=== PATIENT | female | born 1990 | race Caucasian/White ===

== ENCOUNTER 2021-03-07 14:14 | Emergency (ER) | payer OTHER, SELFPAY ==
[2021-03-07 14:26] VITALS: BP 137/78; PULSE 85; RESP 16; TEMP 36.9; O2SAT 98; BMI 24.7
[2021-03-07 14:34] VITALS: BP 130/70; PULSE 120; O2SAT 98
--- NOTE | 2021-03-07 14:34 | ED.OVERDOSE ---
HPI - Overdose General Chief Complaint: Overdose Stated Complaint: OD, NARCAN GIVEN W/GOOD RESULTS Time Seen by Provider: 03/07/21 14:33 Source: patient and EMS Mode of arrival: EMS Limitations: no limitations History of Present Illness HPI Narrative: 30 y/o female with no medical history presents to the ER after an accidental overdose of heroin requiring IN Narcan by EMS. She reports never using heroin before and only snorted an amount less than the size of her pinky fingernail. Her and a friend were outside in a park and the next thing she remembers is being in an ambulance. She denies any injuries. She arrives AAO x3 and tearful. Asking to leave. complaint: accidental overdose Onset (ago): hour(s) Intent: unknown How Overdose Was Discovered: family/friend present at time and called 911 Context: Accidental Overdose: wanted to get high Treatments Prior to Arrival: narcan Related Data Allergies Allergy/AdvReac Type Severity Reaction Status Date / Time No Known Allergies Allergy Verified 03/07/21 14:26 Review of Systems Review of Systems: Constitutional: No Fever, No Chills Gastrointestinal: No Nausea, No Vomiting, No Diarrhea, No abdominal Pain Musculoskeletal: No joint pain, No Myalgias Skin: No Skin Lesions, No rash Neuro: No Weakness, No Numbness, No Dizziness, No Headache Psych: + Anxiety/Panic, + Depression, No SI Heme/Lymph: No Bruising, No Lymphadenopathy PMFSH Past Medical History Attestation statement: The following information was validated with the patient. Medical History No known health problems Social History Social History Advance Directives: No Advance Directives Information Provided: No Physical Exam Vital Signs: Vital Signs: Last Vital Signs Temp 98.5 F 03/07/21 14:26 Pulse 85 03/07/21 14:26 Resp 16 03/07/21 14:26 BP 137/78 03/07/21 14:26 Pulse Ox 98 03/07/21 14:26 Body Mass Index 24.7 Appearance: Alert. Oriented X3. No acute distress. Eyes: Pupils equal, round and reactive to light. ENT: Pharynx normal. Neck: Normal inspection. Neck supple. CVS: Normal heart rate and rhythm. Pulses normal. Respiratory: No respiratory distress. Breath sounds normal. Abdomen: Soft and nontender. +BS x4 Skin: Skin warm and dry. Normal skin color. Normal skin turgor. No rashes. Extremities: No lower extremity edema. Neuro: Oriented X 3. No motor deficit. No sensory deficit. Agitated Course Course Course Narrative: 30 y/o female presenting with unintentional heroin OD s/p Narcan with EMS. AAO on arrival, will monitor. Agreeable to stay for a little while. CARE team discussed support options and recovery but she declined services. Reevaluation(s) Reevaluation #1: Patient eloped after 1 hour of observation. Discharge Plan Discharge Clinical Impression: Drug overdose Qualifiers: Encounter type: initial encounter Injury intent: accidental or unintentional Qualified Code(s): T50.901A - Poisoning by unspecified drugs, medicaments and biological substances, accidental (unintentional), initial encounter Patient Disposition: Elopement Interventions: ED Discharge Assessment Last Done: 03/07/21 15:16 Discharge Date/Time: 03/07/21 15:19
--- NOTE | 2021-03-07 14:55 | MHC.RECOVSUP ---
Recovery Support note: Patient is a 30 year old Taiwanese speaking female who presented [place] [facility] due to an accidental heroin overdose. This racebook writer met with patient to discuss substance use and recovery supports. Patient adamantly denies heroin use, stating this is the first time she has ever tried heroin and that she was curious. Patient expressed regret and reports she will not be using heroin again. Patient reports drinking occasionally and denies other substance use. Patient reports she is not interested in recovery supports at this time as she does not feel she needs them. Patient reports she is interested in leaving as soon as possible. Discussed case with patient's ED Provider.
--- NOTE | 2021-03-07 15:02 | PC.NURSE ---
pt seen by justen (care team), pt aware of plan of care.
== END 2021-03-07 15:19 | disposition left against medical advice (07) ==
PROVIDERS: Emergency Provider Emergency Medicine Emergency Medical Services
DX: T40.1X1A Poisoning by heroin, accidental (unintentional), initial encounter (principal); Y92.9 Unspecified place or not applicable; F11.10 Opioid abuse, uncomplicated; Z71.51 Drug abuse counseling and surveillance of drug abuser
CPT/HCPCS: 99283

== ENCOUNTER 2021-06-23 12:43 | Emergency (ER) | payer OTHER, SELFPAY ==
[2021-06-23 12:52] VITALS: BP 144/91; PULSE 84; RESP 16; TEMP 36.7; O2SAT 96; BMI 24.7
--- NOTE | 2021-06-23 12:58 | ED.ALCOHOL ---
HPI - Alcohol General Chief Complaint: Anxiety Stated Complaint: ETOH,ANXIETY,COCAINE USE Time Seen by Provider: 06/23/21 12:58 Source: patient Mode of arrival: ambulatory Limitations: no limitations History of Present Illness HPI narrative: Patient feeling anxious and shakey after doing cocain, alcohol and robitussin. Really feeling anxious all over. patient would consider detox Last drink: Hours (ago) Chronic alcohol use: Yes Previous visits for alcohol intoxication: Yes Related Data Allergies Allergy/AdvReac Type Severity Reaction Status Date / Time No Known Allergies Allergy Verified 03/07/21 14:26 Review of Systems Constitutional: Constitutional: Reports no additional constitutional complaints Eyes: Eyes: Reports no additional eye complaints ENT: Denies dizziness Cardiovascular: Cardiovascular: Reports no additional cardiovascular complaints Respiratory: Respiratory: Reports as per HPI Gastrointestinal: Gastrointestinal: Reports no additional gastrointestinal complaints Genitourinary: Genitourinary: Reports no additional female genitourinary complaints Musculoskeletal: Musculoskeletal: Reports no additional musculoskeletal complaints Integumentary/Breasts: Skin/Breast: Denies rash Neurologic: Reports system reviewed and no additional complaints, except as documented, Denies dizziness and Denies Sensory deficit (Neuro) Psychiatric: Psychiatric: Denies anxiety [facility] Past Medical History Medical History No known health problems Social History Social History Advance Directives: No Advance Directives Information Provided: No Patient : No Physical Exam Vital Signs: Vital Signs: Last Vital Signs Temp 98.0 F 06/23/21 12:52 Pulse 84 06/23/21 12:52 Resp 16 06/23/21 12:52 BP 144/91 H 06/23/21 12:52 Pulse Ox 96 06/23/21 12:52 Body Mass Index 24.7 Const: General: healthy appearing Nutritional Appearance: average body habitus Orientation/consciousness: oriented to person and patient oriented x3 Limitations: no limitations HENMT: Head: Yes normal to inspection Ears: external ears normal General nose exam: Normal external nose present Mouth: Normal oral and palatal mucosa present and oropharynx normal Throat: Yes posterior oropharynx normal Eyes: General: appearance normal, both eyes and all related structures Neck: Other: supple Neck: Yes normal visual inspection Chest: Chest palpation & inspection: normal inspection of the chest Resp: Auscultation: clear to auscultation bilaterally Cardio: Jugular venous distension: no JVD Rate: regular rate Rhythm: regular rhythm Heart sounds: S1 normal heart sound present and S2 normal heart sound present GI: Inspection: Yes normal to inspection Palpation (GI): Soft to palpation, nontender and No hepatosplenomegaly present Auscultation: normal bowel sounds : General: Yes no CVA tenderness Back/Spine/Pelvis: Back: no CVA tenderness Skin: General skin exam: no rashes or lesions noted Neuro: General: oriented to person and patient oriented x3 Cranial nerves: Yes CN's II-XII intact bilaterally Motor exam (neuro): 5/5 motor strength present throughout Sensory Exam: No Sensory deficit (Neuro) Extrem: General: Yes normal to inspection Psych: Appearance: grossly normal Course Reevaluation(s) Reevaluation #1: resting comfortably will give her detox list Time: 14:47 Discharge Plan Discharge Clinical Impression: Acute anxiety, Polysubstance (including opioids) dependence with physiological dependence Patient Disposition: Home, Self-Care Additional Instructions: Please use detox list to find help with your substance dependence Referrals: Physician,None [Primary Care Provider] - 5 days
[2021-06-23] MEDS: LORazepam 1 MG TABLET PO (13:10)
--- NOTE | 2021-06-23 15:06 | MHC.RECOVSUP ---
Recovery Support note: Patient is a 30 year old Burmese speaking female who presented to [facility] due to anxiety. Patient reports drinking up to a gallon of vodka a day and that she is interested in detox. Patient reports she is willing to go anywhere for help. Patient reports she does not want to discharge without treatment, stating I won't make it back here if I go back out , meaning that she will not access help from the community. This proposal writer will assist patient in searching for a detox bed.
--- NOTE | 2021-06-23 15:07 | PC.NURSE ---
upon dc pt reports i dont want to go out and do something stupid justen at bedside to assist with detox bedsearch
[2021-06-23 15:25] VITALS: BP 127/64; PULSE 85; RESP 16; TEMP 36.7; O2SAT 97
--- NOTE | 2021-06-23 17:15 | PC.NURSE ---
WAITING TO HEAR FROM MULTIPLE DETOX PER MARGARET
--- NOTE | 2021-06-23 17:42 | MHC.RECOVSUP ---
Recovery Support note: Patient has been accepted to [facility] and has an admission scheduled for 830PM. Veterinary Anatomist or CARE Team will assist with arranging transportation.
--- NOTE | 2021-06-23 17:48 | PC.NURSE ---
PT ACCEPTED TO DETOX IN [place]
--- NOTE | 2021-06-23 18:20 | MHC.RECOVSUP ---
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
--- NOTE | 2021-06-23 18:29 | MHC.RECOVSUP ---
Recovery support <del>o</del> <del>Current</del> <del>location:</del> <del>o</del> <del>Identified</del> <del>substance</del> <del>use</del> <del>concern:</del> <del>-</del> <del>Overdose</del> <del>-</del> <del>Withdrawal</del> <del>-</del> <del>Seeking</del> <del>ATS</del> <del>(detox)</del> <del>-</del> <del>Support</del> <del>?</del> <del>Intervention:</del> <del>o</del> <del>ATS</del> <del>bed</del> <del>search</del> <del>started/completed/in</del> <del>process</del> <del>o</del> <del>MAT</del> <del>started</del> <del>or</del> <del>to</del> <del>be</del> <del>started</del> <del>o</del> <del>Community</del> <del>resources</del> <del>provided</del> <del>o</del> <del>Harm</del> <del>reduction</del> <del>discussion</del> <del>?</del> <del>Plan:</del> <del>o</del> <del>Referral</del> <del>to</del> <del>[facility]]</del> <del>o</del> <del>Bed</del> <del>search</del> <del>in</del> <del>progress</del> <del>to</del> <del>o</del> <del>Follow</del> <del>up</del> <del>tomorrow</del> <del>o</del> <del>Patient</del> <del>awaiting</del> <del>crisis</del> <del>evaluation</del> <del>o</del> <del>Patient</del> <del>to</del> <del>follow</del> <del>up</del> <del>with</del> <del>[facility]</del> <del>after</del> <del>discharge</del> ? Additional information: I was able to have a brief conversation with Bairon and he made it aware that has a bed for [facility] and that the [facility] was made aware of needing a ride to [place]. Charge nurse has the voucher.
[2021-06-23 19:37] VITALS: BP 126/58; PULSE 82; RESP 18; TEMP 36.8; O2SAT 96
== END 2021-06-23 20:30 | disposition home or self-care (01) ==
PROVIDERS: Emergency Provider Emergency Medicine
DX: F41.9 Anxiety disorder, unspecified (principal); F19.288 Other psychoactive substance dependence with other psychoactive substance-induced disorder
CPT/HCPCS: 99284

== ENCOUNTER 2021-08-19 12:18 | Inpatient (IN) | payer OTHER, SELFPAY ==
[2021-08-19] VITALS (13 sets, daily range): BP systolic 99–150; BP diastolic 47–86; PULSE 66–120; RESP 14–20; TEMP 36.2–37.1; O2SAT 95–100; BMI 23.0
--- NOTE | ~2021-08-19 | CT_ITS ---
EXAMINATION: CT ABDOMEN AND PELVIS WITH CONTRAST CLINICAL INFORMATION: Abdominal pain. Elevated WBC. COMPARISON: None. TECHNIQUE: Multidetector CT volumetric acquisition of the abdomen and pelvis was performed after the administration of 85 mL of intravenous Omnipaque 350. The data set was reformatted in the sagittal and coronal planes and reviewed on an independent workstation. This CT examination was performed using dose optimization techniques as appropriate, variously including the following: *Automated exposure control *Adjustment of mA and/or kV according to patient size (this includes techniques or standardized protocols for targeted exams where dose is matched to indication/reason for exam; i.e. extremities or head) *Use of iterative reconstruction technique DLP: 420.26 mGy-cm. FINDINGS: LOWER CHEST: Included lung bases unremarkable. LIVER, GALLBLADDER, BILIARY TREE: Liver normal size and diffusely lower in attenuation compared to the spleen, consistent with hepatic steatosis.. No focal cystic or solid mass or intra-or extrahepatic ductal dilatation. Hepatic and portal veins patent. Gallbladder partially distended and within normal limits. PANCREAS: Normal. No ductal dilatation, mass, or surrounding stranding. SPLEEN: Normal size and appearance. Splenic vein patent. ADRENAL GLANDS AND KIDNEYS: Adrenal glands normal. Kidneys bilaterally symmetric in size and function. No focal mass, hydronephrosis, nephrolithiasis or perinephric stranding. URETERS AND BLADDER: Ureters decompressed and within normal limits. Bladder partially distended and within normal limits. PELVIC ORGANS: Vaginal tampon seen in place. GASTROINTESTINAL TRACT: Abnormal. Small and large bowel loops decompressed. Appendix abnormal, measuring 1 x 0.7 cm in diameter and demonstrating mural thickening and enhancement. Trace amount of fluid is seen adjacent to the appendiceal tip with volume averaging with the sigmoid colon and the uterine fundus. No definite defined focal abscess collection is seen. No evidence of free air or bowel obstruction. Minimal reactive bowel wall edema in the adjacent sigmoid colon. Small bowel loops unremarkable.. ABDOMINAL WALL: There is a tiny fat-containing umbilical hernia. LYMPHOVASCULAR STRUCTURES: Abdominal aorta normal in caliber. No periaortic collections. No abdominal or pelvic adenopathy or free fluid collection. BONES: Bilateral L5 pars defects with grade 1 anterolisthesis of L5 on S1. CT/CT abdomen pelvis w con IMPRESSION: 1. Findings are consistent with acute uncomplicated appendicitis with abnormal dilated and fluid-filled appendix with wall thickening and small volume free fluid around the tip of the appendix. No defined abscess collection or evidence of bowel obstruction or perforation. 2. Hepatic steatosis. This critical result was discussed with Dr. Solange Naqvi 08/19/2021, 7:26 AM and it was ascertained that the content and urgency of this report was understood at the time of direct communication.
--- NOTE | 2021-08-19 04:03 | ED.ABDPAIN ---
HPI - Abdominal Pain General Chief Complaint: Nausea/Vomiting/Diarrhea <Emanuel Fairbanks MD - Last Filed: 08/19/21 05:48> Stated Complaint: N/V/D ABD PX [id number] <Emanuel Fairbanks MD - Last Filed: 08/19/21 05:48> Time Seen by Provider: 08/19/21 04:03 <Emanuel Fairbanks MD - Last Filed: 08/19/21 05:48> Source: patient <Emanuel Fairbanks MD - Last Filed: 08/19/21 05:48> Mode of arrival: EMS <Emanuel Fairbanks MD - Last Filed: 08/19/21 05:48> Limitations: no limitations <Emanuel Fairbanks MD - Last Filed: 08/19/21 05:48> History of Present Illness HPI narrative: nausea, vomiting and diarrhea for the past 4 hours with right lower quadrant pain radiating to the right flank, patient denies food poisoning. Denies fever. <Emanuel Fairbanks MD - Last Filed: 08/19/21 05:48> MD elicited complaint: abdominal pain and flank pain <Emanuel Fairbanks MD - Last Filed: 08/19/21 05:48> Pertinent past history: none <Emanuel Fairbanks MD - Last Filed: 08/19/21 05:48> Onset (ago): hour(s) <Emanuel Fairbanks MD - Last Filed: 08/19/21 05:48> Pain Consistency: constant <Emanuel Fairbanks MD - Last Filed: 08/19/21 05:48> Location: RLQ <Emanuel Fairbanks MD - Last Filed: 08/19/21 05:48> Severity: mild <Emanuel Fairbanks MD - Last Filed: 08/19/21 05:48> Quality: cramping <Emanuel Fairbanks MD - Last Filed: 08/19/21 05:48> Radiation: none <Emanuel Fairbanks MD - Last Filed: 08/19/21 05:48> Exacerbating factors: nothing <Emanuel Fairbanks MD - Last Filed: 08/19/21 05:48> Relieving factors: nothing <Emanuel Fairbanks MD - Last Filed: 08/19/21 05:48> Associated symptoms: nausea, vomiting and diarrhea <Emanuel Fairbanks MD - Last Filed: 08/19/21 05:48> Related Data Allergies/Adverse Reactions: Allergies Allergy/AdvReac Type Severity Reaction Status Date / Time No Known Allergies Allergy Verified 03/07/21 14:26 <Emanuel Fairbanks MD - Last Filed: 08/19/21 05:48> Review of Systems Constitutional: Reports no additional constitutional complaints <Emanuel Fairbanks MD - Last Filed: 08/19/21 05:48> Eyes: Reports no additional eye complaints <Emanuel Fairbanks MD - Last Filed: 08/19/21 05:48> Denies dizziness <Emanuel Fairbanks MD - Last Filed: 08/19/21 05:48> Cardiovascular: Reports no additional cardiovascular complaints <Emanuel Fairbanks MD - Last Filed: 08/19/21 05:48> Respiratory: Reports as per HPI <Emanuel Fairbanks MD - Last Filed: 08/19/21 05:48> Gastrointestinal: Reports no additional gastrointestinal complaints <Emanuel Fairbanks MD - Last Filed: 08/19/21 05:48> Genitourinary: Reports no additional female genitourinary complaints <Emanuel Fairbanks MD - Last Filed: 08/19/21 05:48> Musculoskeletal: Reports no additional musculoskeletal complaints <Emanuel Fairbanks MD - Last Filed: 08/19/21 05:48> Skin/Breast: Denies rash <Emanuel Fairbanks MD - Last Filed: 08/19/21 05:48> Reports system reviewed and no additional complaints, except as documented, Denies dizziness and Denies Sensory deficit (Neuro) <Emanuel Fairbanks MD - Last Filed: 08/19/21 05:48> Psychiatric: Denies anxiety <Emanuel Fairbanks MD - Last Filed: 08/19/21 05:48> Physical Exam Vital Signs: Vital Signs: Last Vital Signs Temp 98.8 F 08/19/21 04:38 Pulse 102 H 08/19/21 04:38 Resp 20 08/19/21 04:38 BP 138/85 08/19/21 04:38 Pulse Ox 95 08/19/21 04:38 Body Mass Index 23.0 <Emanuel Fairbanks MD - Last Filed: 08/19/21 05:48> Vital Signs: Last Vital Signs Temp 98.8 F 08/19/21 04:38 Pulse 102 H 08/19/21 04:38 Resp 20 08/19/21 04:38 BP 138/85 08/19/21 04:38 Pulse Ox 95 08/19/21 04:38 Body Mass Index 23.0 <Solange Naqvi MD - Last Filed: 08/19/21 08:41> Const: Other: anxious <Emanuel Fairbanks MD - Last Filed: 08/19/21 05:48> General: healthy appearing <Emanuel Fairbanks MD - Last Filed: 08/19/21 05:48> Nutritional Appearance: average body habitus <Emanuel Fairbanks MD - Last Filed: 08/19/21 05:48> Orientation/consciousness: oriented to person and patient oriented x3 <Emanuel Fairbanks MD - Last Filed: 08/19/21 05:48> Limitations: no limitations <Emanuel Fairbanks MD - Last Filed: 08/19/21 05:48> HENMT: Head: Yes normal to inspection <Emanuel Fairbanks MD - Last Filed: 08/19/21 05:48> Ears: external ears normal <Emanuel Fairbanks MD - Last Filed: 08/19/21 05:48> General nose exam: Normal external nose present <Emanuel Fairbanks MD - Last Filed: 08/19/21 05:48> Mouth: Normal oral and palatal mucosa present and oropharynx normal <Emanuel Fairbanks MD - Last Filed: 08/19/21 05:48> Throat: Yes posterior oropharynx normal <Emanuel Fairbanks MD - Last Filed: 08/19/21 05:48> Eyes: General: appearance normal, both eyes and all related structures <Emanuel Fairbanks MD - Last Filed: 08/19/21 05:48> Neck: Other: supple <Emanuel Fairbanks MD - Last Filed: 08/19/21 05:48> Neck: Yes normal visual inspection <Emanuel Fairbanks MD - Last Filed: 08/19/21 05:48> Chest: Chest palpation & inspection: normal inspection of the chest <Emanuel Fairbanks MD - Last Filed: 08/19/21 05:48> Resp: Auscultation: clear to auscultation bilaterally <Emanuel Fairbanks MD - Last Filed: 08/19/21 05:48> Cardio: Jugular venous distension: no JVD <Emanuel Fairbanks MD - Last Filed: 08/19/21 05:48> Rate: regular rate <Emanuel Fairbanks MD - Last Filed: 08/19/21 05:48> Rhythm: regular rhythm <Emanuel Fairbanks MD - Last Filed: 08/19/21 05:48> Heart sounds: S1 normal heart sound present and S2 normal heart sound present <Emanuel Fairbanks MD - Last Filed: 08/19/21 05:48> GI: Other: diffusely tender soft <Emanuel Fairbanks MD - Last Filed: 08/19/21 05:48> Inspection: Yes normal to inspection <Emanuel Fairbanks MD - Last Filed: 08/19/21 05:48> Auscultation: normal bowel sounds <Emanuel Fairbanks MD - Last Filed: 08/19/21 05:48> : General: Yes no CVA tenderness <Emanuel Fairbanks MD - Last Filed: 08/19/21 05:48> Back/Spine/Pelvis: Back: no CVA tenderness <Emanuel Fairbanks MD - Last Filed: 08/19/21 05:48> Skin: General skin exam: no rashes or lesions noted <Emanuel Fairbanks MD - Last Filed: 08/19/21 05:48> Neuro: General: oriented to person and patient oriented x3 <Emanuel Fairbanks MD - Last Filed: 08/19/21 05:48> Cranial nerves: Yes CN's II-XII intact bilaterally <Emanuel Fairbanks MD - Last Filed: 08/19/21 05:48> Motor exam (neuro): 5/5 motor strength present throughout <Emanuel Fairbanks MD - Last Filed: 08/19/21 05:48> Sensory Exam: No Sensory deficit (Neuro) <Emanuel Fairbanks MD - Last Filed: 08/19/21 05:48> Extrem: General: Yes normal to inspection <Emanuel Fairbanks MD - Last Filed: 08/19/21 05:48> Psych: Appearance: grossly normal <Emanuel Fairbanks MD - Last Filed: 08/19/21 05:48> Course Reevaluation(s) Reevaluation #1: WBC elevated, Lfts abnormal, bedside ultrasound negative for gallstones, will obtain CT scan <Emanuel Fairbanks MD - Last Filed: 08/19/21 05:48> Time: 05:48 <Emanuel Fairbanks MD - Last Filed: 08/19/21 05:48> MDM - Abdominal Pain MDM Narrative Medical decision making narrative: CT positive for appendicitis. Repeat abdominal exam positive right lower quadrant tenderness. Antibiotics started case discussed with Dr. Garcia from surgery. Patient to be admitted for appendectomy. <Solange Naqvi MD - Last Filed: 08/19/21 08:41> Lab Data Result diagrams: : 08/19/21 04:19 08/19/21 04:49 <Emanuel Fairbanks MD - Last Filed: 08/19/21 05:48> Labs: Lab Results 08/19/21 08/19/21 08/19/21 Range/Units 04:19 04:19 04:19 WBC 17.7 H (4.8-10.8) X10*3/uL RBC 4.49 (4.20-5.50) X10*6/uL Hgb 14.1 (12.0-16.0) g/dl Hct 40.5 (37-47) % MCV 90.2 (80-98) fL MCH 31.4 (27.0-33.0) pg MCHC 34.8 (31.0-35.0) g/dl RDW 13.7 (11.0-16.0) % Plt Count 221 (160-400) X10*3/uL MPV 10.0 (9.4-12.3) fL Immature Gran % (Auto) 0.2 (0.0-0.4) % Neut % (Auto) 86.9 H (45-73) % Lymph % (Auto) 9.1 L (20-40) % [place] % (Auto) 3.6 (2-11) % Eos % (Auto) 0.0 (0-4) % Baso % (Auto) 0.2 (0-2) % Lymph # (Auto) 1.6 (1.2-4.9) X10*3/uL [place] # (Auto) 0.6 (0.1-1.2) X10*3/uL Eos # (Auto) 0.0 (0.0-0.4) X10*3/uL Baso # (Auto) 0.0 (0.0-0.2) X10*3/uL Abs Immat Gran (auto) 0.04 H (0.00-0.03) X10*3/uL Absolute Neuts (auto) 15.3 H (2.0-8.3) X10*3/uL Absolute Nucleated RBC 0.000 (0.0-0.012) X10*3/uL Nucleated RBC % (auto) 0.0 (0.0-0.2) /100WBC Sodium (135-145) mmol/L Potassium (3.3-5.1) mmol/L Chloride (96-108) mmol/L Carbon Dioxide (22-29) mmol/L Anion Gap (12-20) BUN (9-16) mg/dL Creatinine (0.5-1.4) mg/dL Estim Creat Clear Calc Estimated GFR Random Glucose (60-115) mg/dL Calcium (8.4-10.2) mg/dL Total Bilirubin (0.0-1.0) mg/dL Direct Bilirubin (0.0-0.5) mg/dL AST (5-31) U/L ALT (0-31) U/L Alkaline Phosphatase (39-117) U/L Total Protein (6.5-8.0) g/dL Albumin (3.5-5.0) g/dL Lipase (8-78) U/L Urine Color YELLOW Urine Appearance HAZY Urine pH 6.5 (5.0-8.0) Ur Specific [place] >= 1.030 H (1.005-1.025) Urine Protein TRACE (NEG-TRACE) MG/DL Urine Glucose (UA) NEG (NEG) MG/DL Urine Ketones 15 (NEG) MG/DL Urine Blood TRACE (NEG) Urine Nitrite NEG (NEG) Ur Leukocyte Esterase NEG (NEG) Urine RBC 1-4 (0) /HPF Urine WBC 1-4 (0-4) /HPF Ur Squamous Epith Cells 2+ /LPF Urine Bacteria 2+ /LPF Hyaline Casts 1-4 /LPF Urine Mucus 2+ /LPF Urine Test NEGATIVE (NEGATIVE) 08/19/21 Range/Units 04:49 WBC (4.8-10.8) X10*3/uL RBC (4.20-5.50) X10*6/uL Hgb (12.0-16.0) g/dl Hct (37-47) % MCV (80-98) fL MCH (27.0-33.0) pg MCHC (31.0-35.0) g/dl RDW (11.0-16.0) % Plt Count (160-400) X10*3/uL MPV (9.4-12.3) fL Immature Gran % (Auto) (0.0-0.4) % Neut % (Auto) (45-73) % Lymph % (Auto) (20-40) % [place] % (Auto) (2-11) % Eos % (Auto) (0-4) % Baso % (Auto) (0-2) % Lymph # (Auto) (1.2-4.9) X10*3/uL [place] # (Auto) (0.1-1.2) X10*3/uL Eos # (Auto) (0.0-0.4) X10*3/uL Baso # (Auto) (0.0-0.2) X10*3/uL Abs Immat Gran (auto) (0.00-0.03) X10*3/uL Absolute Neuts (auto) (2.0-8.3) X10*3/uL Absolute Nucleated RBC (0.0-0.012) X10*3/uL Nucleated RBC % (auto) (0.0-0.2) /100WBC Sodium 138 (135-145) mmol/L Potassium 4.2 (3.3-5.1) mmol/L Chloride 104 (96-108) mmol/L Carbon Dioxide 20 L (22-29) mmol/L Anion Gap 18 (12-20) BUN 13 (9-16) mg/dL Creatinine 0.75 (0.5-1.4) mg/dL Estim Creat Clear Calc 89.8 Estimated GFR > 60 Random Glucose 106 (60-115) mg/dL Calcium 9.2 (8.4-10.2) mg/dL Total Bilirubin 1.6 H (0.0-1.0) mg/dL Direct Bilirubin 0.7 H (0.0-0.5) mg/dL AST 213 H (5-31) U/L ALT 303 H (0-31) U/L Alkaline Phosphatase 116 (39-117) U/L Total Protein 7.0 (6.5-8.0) g/dL Albumin 4.2 (3.5-5.0) g/dL Lipase < 4 L (8-78) U/L Urine Color Urine Appearance Urine pH (5.0-8.0) Ur Specific [place] (1.005-1.025) Urine Protein (NEG-TRACE) MG/DL Urine Glucose (UA) (NEG) MG/DL Urine Ketones (NEG) MG/DL Urine Blood (NEG) Urine Nitrite (NEG) Ur Leukocyte Esterase (NEG) Urine RBC (0) /HPF Urine WBC (0-4) /HPF Ur Squamous Epith Cells /LPF Urine Bacteria /LPF Hyaline Casts /LPF Urine Mucus /LPF Urine Test (NEGATIVE) <Emanuel Fairbanks MD - Last Filed: 08/19/21 05:48> Lab Results 08/19/21 08/19/21 08/19/21 Range/Units 04:19 04:19 04:19 WBC 17.7 H (4.8-10.8) X10*3/uL RBC 4.49 (4.20-5.50) X10*6/uL Hgb 14.1 (12.0-16.0) g/dl Hct 40.5 (37-47) % MCV 90.2 (80-98) fL MCH 31.4 (27.0-33.0) pg MCHC 34.8 (31.0-35.0) g/dl RDW 13.7 (11.0-16.0) % Plt Count 221 (160-400) X10*3/uL MPV 10.0 (9.4-12.3) fL Immature Gran % (Auto) 0.2 (0.0-0.4) % Neut % (Auto) 86.9 H (45-73) % Lymph % (Auto) 9.1 L (20-40) % [place] % (Auto) 3.6 (2-11) % Eos % (Auto) 0.0 (0-4) % Baso % (Auto) 0.2 (0-2) % Lymph # (Auto) 1.6 (1.2-4.9) X10*3/uL [place] # (Auto) 0.6 (0.1-1.2) X10*3/uL Eos # (Auto) 0.0 (0.0-0.4) X10*3/uL Baso # (Auto) 0.0 (0.0-0.2) X10*3/uL Abs Immat Gran (auto) 0.04 H (0.00-0.03) X10*3/uL Absolute Neuts (auto) 15.3 H (2.0-8.3) X10*3/uL Absolute Nucleated RBC 0.000 (0.0-0.012) X10*3/uL Nucleated RBC % (auto) 0.0 (0.0-0.2) /100WBC Sodium (135-145) mmol/L Potassium (3.3-5.1) mmol/L Chloride (96-108) mmol/L Carbon Dioxide (22-29) mmol/L Anion Gap (12-20) BUN (9-16) mg/dL Creatinine (0.5-1.4) mg/dL Estim Creat Clear Calc Estimated GFR Random Glucose (60-115) mg/dL Calcium (8.4-10.2) mg/dL Total Bilirubin (0.0-1.0) mg/dL Direct Bilirubin (0.0-0.5) mg/dL AST (5-31) U/L ALT (0-31) U/L Alkaline Phosphatase (39-117) U/L Total Protein (6.5-8.0) g/dL Albumin (3.5-5.0) g/dL Lipase (8-78) U/L Urine Color YELLOW Urine Appearance HAZY Urine pH 6.5 (5.0-8.0) Ur Specific [place] >= 1.030 H (1.005-1.025) Urine Protein TRACE (NEG-TRACE) MG/DL Urine Glucose (UA) NEG (NEG) MG/DL Urine Ketones 15 (NEG) MG/DL Urine Blood TRACE (NEG) Urine Nitrite NEG (NEG) Ur Leukocyte Esterase NEG (NEG) Urine RBC 1-4 (0) /HPF Urine WBC 1-4 (0-4) /HPF Ur Squamous Epith Cells 2+ /LPF Urine Bacteria 2+ /LPF Hyaline Casts 1-4 /LPF Urine Mucus 2+ /LPF Urine Test NEGATIVE (NEGATIVE) 08/19/21 Range/Units 04:49 WBC (4.8-10.8) X10*3/uL RBC (4.20-5.50) X10*6/uL Hgb (12.0-16.0) g/dl Hct (37-47) % MCV (80-98) fL MCH (27.0-33.0) pg MCHC (31.0-35.0) g/dl RDW (11.0-16.0) % Plt Count (160-400) X10*3/uL MPV (9.4-12.3) fL Immature Gran % (Auto) (0.0-0.4) % Neut % (Auto) (45-73) % Lymph % (Auto) (20-40) % [place] % (Auto) (2-11) % Eos % (Auto) (0-4) % Baso % (Auto) (0-2) % Lymph # (Auto) (1.2-4.9) X10*3/uL [place] # (Auto) (0.1-1.2) X10*3/uL Eos # (Auto) (0.0-0.4) X10*3/uL Baso # (Auto) (0.0-0.2) X10*3/uL Abs Immat Gran (auto) (0.00-0.03) X10*3/uL Absolute Neuts (auto) (2.0-8.3) X10*3/uL Absolute Nucleated RBC (0.0-0.012) X10*3/uL Nucleated RBC % (auto) (0.0-0.2) /100WBC Sodium 138 (135-145) mmol/L Potassium 4.2 (3.3-5.1) mmol/L Chloride 104 (96-108) mmol/L Carbon Dioxide 20 L (22-29) mmol/L Anion Gap 18 (12-20) BUN 13 (9-16) mg/dL Creatinine 0.75 (0.5-1.4) mg/dL Estim Creat Clear Calc 89.8 Estimated GFR > 60 Random Glucose 106 (60-115) mg/dL Calcium 9.2 (8.4-10.2) mg/dL Total Bilirubin 1.6 H (0.0-1.0) mg/dL Direct Bilirubin 0.7 H (0.0-0.5) mg/dL AST 213 H (5-31) U/L ALT 303 H (0-31) U/L Alkaline Phosphatase 116 (39-117) U/L Total Protein 7.0 (6.5-8.0) g/dL Albumin 4.2 (3.5-5.0) g/dL Lipase < 4 L (8-78) U/L Urine Color Urine Appearance Urine pH (5.0-8.0) Ur Specific [place] (1.005-1.025) Urine Protein (NEG-TRACE) MG/DL Urine Glucose (UA) (NEG) MG/DL Urine Ketones (NEG) MG/DL Urine Blood (NEG) Urine Nitrite (NEG) Ur Leukocyte Esterase (NEG) Urine RBC (0) /HPF Urine WBC (0-4) /HPF Ur Squamous Epith Cells /LPF Urine Bacteria /LPF Hyaline Casts /LPF Urine Mucus /LPF Urine Test (NEGATIVE) <Solange Naqvi MD - Last Filed: 08/19/21 08:41> Discharge Plan Discharge Clinical Impression: Appendicitis <Emanuel Fairbanks MD - Last Filed: 08/19/21 05:48> Patient Disposition: Admitted As Inpatient <Emanuel Fairbanks MD - Last Filed: 08/19/21 05:48> [facility] Past Medical History Medical History: Medical History No known health problems <Emanuel Fairbanks MD - Last Filed: 08/19/21 05:48> Social History Social History: Social History Alcohol intake: current Substance Use Type: Crack/Cocaine Advance Directives: No <Emanuel Fairbanks MD - Last Filed: 08/19/21 05:48>
[2021-08-19] MEDS: Pantoprazole Sodium 40 MG/10 ML VIAL IVPUSH (04:23)
[2021-08-19 04:24] LABS: Basophils Percent Auto 0.2 % (0-2); Hematocrit 40.5 % (37-47); Hemoglobin 14.1 g/dl (12.0-16.0); Imm Gran Abs Auto 0.04 X10*3/uL (0.00-0.03); Imm Gran Pct Auto 0.2 % (0.0-0.4); Lymphocytes Absolute Auto 1.6 X10*3/uL (1.2-4.9); Lymphocytes Percent Auto 9.1 % (20-40); MANUAL DIFF FLAG NO; Mean Corpuscular HGB Conc 34.8 g/dl (31.0-35.0); Mean Corpuscular Hemoglobin 31.4 pg (27.0-33.0); Mean Corpuscular Volume 90.2 fL (80-98); Monocytes Absolute Auto 0.6 X10*3/uL (0.1-1.2); Monocytes Percent Auto 3.6 % (2-11); Neutrophils Absolute Auto 15.3 X10*3/uL (2.0-8.3); Neutrophils Percent Auto 86.9 % (45-73); Platelet Count 221 X10*3/uL (160-400); Red Blood Count 4.49 X10*6/uL (4.20-5.50); Red Cell Distribution Width 13.7 % (11.0-16.0); White Blood Count 17.7 X10*3/uL (4.8-10.8)
[2021-08-19 04:27] LABS: Appearance Urine HAZY; Color Urine YELLOW; Glucose Urine UA NEG (NEG); Leukocyte Esterase Urine NEG (NEG); Nitrite Urine NEG (NEG); PH 6.5 (5.0-8.0); Specific Gravity - Urine >= 1.030 (1.005-1.025); UACC Culture Trigger NO; Urine Blood TRACE (NEG); Urine Ketones 15 MG/DL (NEG); Urine Protein TRACE MG/DL (NEG-TRACE)
[2021-08-19 04:29] LABS: UPreg QC Valid YES; Urine Pregnancy NEGATIVE (NEGATIVE)
[2021-08-19] MEDS: 0.9 % Sodium Chloride 1,000 ML 999 ML IVCONT ×2 (04:32→05:47)
[2021-08-19 04:34] LABS: Bacteria Urine 2+ /LPF; Mucus Urine 2+ /LPF; Squamous Epithelial Cell Urine 2+ /LPF
[2021-08-19 05:10] LABS: Alanine Aminotransferase 303 U/L (0-31); Albumin Level 4.2 g/dL (3.5-5.0); Alkaline Phosphatase 116 U/L (39-117); Anion Gap 18 (12-20); Aspartate Amino Transferase 213 U/L (5-31); Bilirubin Direct 0.7 mg/dL (0.0-0.5); Bilirubin Total 1.6 mg/dL (0.0-1.0); Blood Urea Nitrogen 13 mg/dL (9-16); Calcium 9.2 mg/dL (8.4-10.2); Carbon Dioxide 20 mmol/L (22-29); Chloride 104 mmol/L (96-108); Creatinine Clr Calc Pharmacy 89.8; Estimated Glomerular Filt Rate > 60; Glucose Random 106 mg/dL (60-115); Lipase < 4 U/L (8-78); Potassium 4.2 mmol/L (3.3-5.1); Sodium 138 mmol/L (135-145)
[2021-08-19] MEDS: Morphine Sulfate 4 MG/ML CARTRIDGE IVPUSH (05:54)
[2021-08-19] MEDS: iohexoL 350 MG/ML 100 ML INFUS..BTL 85 ML IV (06:38)
[2021-08-19] MEDS: cefTRIAXone sodium 1 GM in 0.9 % Sodium Chloride 50 ML IV (08:29)
--- NOTE | 2021-08-19 08:38 | PM.HPGS ---
History of Present Illness History of Present Illness Date of Service: 08/21/21 Chief complaint: Appendicitis Narrative: Bella Quiroz is a 31 year old female who came to the ED early this morning because of abdominal pain. She describes this diffuse but mostly on the lower abdomen. She states the pain had persisted throughout the night. She describes some nauseaand vomitting as well. She denies any similar episodes in the past. She had no fever or chills. She says she is healthy overall. Review of Systems Constitutional: Constitutional: Denies chills and Denies fever(s) Cardiovascular: Cardiovascular: Denies chest pain, Denies dyspnea and Denies dyspnea on exertion Respiratory: Respiratory: Denies cough, Denies dyspnea and Denies dyspnea on exertion Gastrointestinal: Gastrointestinal: Denies hematochezia, Denies change in bowel habits, Reports nausea and Reports vomiting Genitourinary: Genitourinary: Denies hematuria Musculoskeletal: Musculoskeletal: Denies back pain and Denies limited range of motion Neurologic: Denies focal weakness and Denies convulsions Psychiatric: Psychiatric: Denies depression and Denies mood swings PMFSH Past Medical History Medical History Cocaine use Smoker Social History Social History Household Members: Significant Other Housing: Apartment Do you presently have visiting nurse or other home services: Yes Alcohol intake: current Patient Tobacco Use Status: Current everyday Tobacco user Tobacco use type: Cigarette e-Cigarette/Vaping Use: Never Used Substance Use Type: Crack/Cocaine service: No Current occupational status: unemployed Meds Allergies Allergy/AdvReac Type Severity Reaction Status Date / Time No Known Allergies Allergy Verified 03/07/21 14:26 Physical Exam Vital Signs: Vital Signs: Last Vital Signs Temp 98.8 F 08/19/21 04:38 Pulse 102 H 08/19/21 04:38 Resp 20 08/19/21 04:38 BP 138/85 08/19/21 04:38 Pulse Ox 95 08/19/21 04:38 Body Mass Index 23.0 Const: General: comfortable and no acute distress Orientation/consciousness: patient oriented x3 Neck: Neck: Yes no lymphadenopathy Resp: Auscultation: clear to auscultation bilaterally Cardio: Rhythm: regular rhythm GI: Other: tender diffusely, mostly on the lower abdomen, no rebound Palpation (GI): Soft to palpation, Tenderness to palpation present (GI) and no guarding Neuro: General: patient oriented x3 Results Results Labs: Short CBC 08/19/21 Range/Units 04:19 WBC 17.7 H (4.8-10.8) X10*3/uL Hgb 14.1 (12.0-16.0) g/dl Hct 40.5 (37-47) % Plt Count 221 (160-400) X10*3/uL BMP 08/19/21 04:49 Sodium 138 Potassium 4.2 Chloride 104 Carbon Dioxide 20 L BUN 13 Creatinine 0.75 Calcium 9.2 Liver Function 08/19/21 Range/Units 04:49 Total Bilirubin 1.6 H (0.0-1.0) mg/dL Direct Bilirubin 0.7 H (0.0-0.5) mg/dL AST 213 H (5-31) U/L ALT 303 H (0-31) U/L Alkaline Phosphatase 116 (39-117) U/L Albumin 4.2 (3.5-5.0) g/dL Urine 08/19/21 08/19/21 Range/Units 04:19 04:19 Urine Color YELLOW Urine Appearance HAZY Urine pH 6.5 (5.0-8.0) Ur Specific [place] >= 1.030 H (1.005-1.025) Urine Protein TRACE (NEG-TRACE) MG/DL Urine Glucose (UA) NEG (NEG) MG/DL Urine Test NEGATIVE (NEGATIVE) Abdomen CT scan report/results: report reviewed and image reviewed CT scan - pelvis: report reviewed and image reviewed Assessment and Plan (1) Appendicitis: Status: Acute She has diffuse abdominal pain, but mostly on the lower abdomen. I have reviewed her CT scan and this shows thickening of the appendix, which is fluid filled, with periappendiceal fluid c/w acute appendicitis. I explained to her the technique of lap appendectomy and possible open appendectomy. I extensively reviewed the risks includingbut not limited to bleeding, infections, injury to bowel, liver and urinary tract, staple leak, as well as the benefits and alternatives. She understands the option of IV antibiotic treatment only and wants to proceed with appendectomy. We will therefore proceed with surgery today. Her significant other Pantera was updated of the plan ([phone]). Quality Stroke Does the patient have a stroke diagnosis?: No VTE Prior VTE?: No VTE Risk Level:: Medical - low VTE Device Contraindication: N/A - Device Ordered VTE Drug Contraindication: Treatment Not Indicated Procedures Date of Service Date of Service: 08/19/21
[2021-08-19] MEDS: HYDROmorphone HCl 0.5 MG/0.5 ML SYRINGE IVPUSH ×3 (08:51→17:07)
[2021-08-19] MEDS: ondansetron HCL 4 MG/2 ML VIAL IVPUSH (08:59)
[2021-08-19] MEDS: metroNIDAZOLE/NS 500 MG/100 ML PIGGYBACK 100 MG IV (09:00)
--- NOTE | 2021-08-19 09:49 | P.CONAN_ITS ---
HPI - Anesthesia Eval Consult details Narrative: Acute appendicitis PMFSH Active Problems Active Problems: All Active Problems (Updated 08/19/21 @ 08:41 by Solange Naqvi MD) Smoker (Acute) Appendicitis (Acute) Past Medical History Medical History No known health problems Smoker Narrative: H/o heroin overdose. Pt. denied haing been using heroin and claimed it was one-time affair. Pt admits using occasionaly cocaine and smoking half a pack of cigaretts. Family History Family history of problems with anesthesia: No Surgical History History of Problems with Anesthesia: No Social History Social History Alcohol intake: current Substance Use Type: Crack/Cocaine Advance Directives: No Meds Allergies Allergy/AdvReac Type Severity Reaction Status Date / Time No Known Allergies Allergy Verified 03/07/21 14:26 Active Medications: Current Medications Sodium Chloride (Ns) 1,000 mls @ 100 mls/hr IVCONT .Q10H MARIS[place] Morphine Sulfate (Morphine Sulfate 4 Mg/Ml Cartridge) 3 mg IVPUSH Q3H PRN; Protocol PRN Reason: Pain, Severe (Pain Scale 7-10) Sodium Chloride (0.9 % Sodium Chloride Flush 3 Ml Syringe) 3 ml IVFLUSH QSHIFT [facility] Exam Exam Date and Time: August 19, 2021 0949 Height,Weight and Vital Signs: Height 5 ft 3 in Weight 58.967 kg Last Vital Signs Temp 98.8 F 08/19/21 04:38 Pulse 102 H 08/19/21 04:38 Resp 20 08/19/21 04:38 BP 138/85 08/19/21 04:38 Pulse Ox 95 08/19/21 04:38 Pertinent Lab Results Pertinent Lab Results: Laboratory Tests 08/19/21 08/19/21 08/19/21 04:19 04:19 04:19 WBC 17.7 H RBC 4.49 Hgb 14.1 Hct 40.5 MCV 90.2 MCH 31.4 MCHC 34.8 RDW 13.7 Plt Count 221 MPV 10.0 Immature Gran % (Auto) 0.2 Neut % (Auto) 86.9 H Lymph % (Auto) 9.[address] [place] % (Auto) 3.6 Eos % (Auto) 0.0 Baso % (Auto) 0.2 Lymph # (Auto) 1.6 [place] # (Auto) 0.6 Eos # (Auto) 0.0 Baso # (Auto) 0.0 Abs Immat Gran (auto) 0.04 H Absolute Neuts (auto) 15.3 H Absolute Nucleated RBC 0.000 Nucleated RBC % (auto) 0.0 Sodium Potassium Chloride Carbon Dioxide Anion Gap BUN Creatinine Estim Creat Clear Calc Estimated GFR Random Glucose Calcium Total Bilirubin Direct Bilirubin AST ALT Alkaline Phosphatase Total Protein Albumin Lipase Urine Color YELLOW Urine Appearance HAZY Urine pH 6.5 Ur Specific [place] >= 1.030 H Urine Protein TRACE Urine Glucose (UA) NEG Urine Ketones 15 Urine Blood TRACE Urine Nitrite NEG Ur Leukocyte Esterase NEG Urine RBC 1-4 Urine WBC 1-4 Ur Squamous Epith Cells 2+ Urine Bacteria 2+ Hyaline Casts 1-4 Urine Mucus 2+ Urine Test NEGATIVE 08/19/21 04:49 WBC RBC Hgb Hct MCV MCH MCHC RDW Plt Count MPV Immature Gran % (Auto) Neut % (Auto) Lymph % (Auto) [place] % (Auto) Eos % (Auto) Baso % (Auto) Lymph # (Auto) [place] # (Auto) Eos # (Auto) Baso # (Auto) Abs Immat Gran (auto) Absolute Neuts (auto) Absolute Nucleated RBC Nucleated RBC % (auto) Sodium 138 Potassium 4.2 Chloride 104 Carbon Dioxide 20 L Anion Gap 18 BUN 13 Creatinine 0.75 Estim Creat Clear Calc 89.8 Estimated GFR > 60 Random Glucose 106 Calcium 9.2 Total Bilirubin 1.6 H Direct Bilirubin 0.7 H AST 213 H ALT 303 H Alkaline Phosphatase 116 Total Protein 7.0 Albumin 4.2 Lipase < 4 L Urine Color Urine Appearance Urine pH Ur Specific [place] Urine Protein Urine Glucose (UA) Urine Ketones Urine Blood Urine Nitrite Ur Leukocyte Esterase Urine RBC Urine WBC Ur Squamous Epith Cells Urine Bacteria Hyaline Casts Urine Mucus Urine Test Airway Mallampati Class: I TM Dist: >3cm Loose/Missing/Broken Teeth: No Heart: RRR Lungs: CTA Assessment and Plan Assessment Anesthesia Assessment: Anesthesia Plan Discussed, Smoking Cess. Discussed and Chart Reviewed Final Anesthetic Review Family History of Problems with Anesthesia: No History of Problems with Anesthesia: No NPO: Yes ASA Class: II Final Preanesthetic Review: No Changes in Pt Med Stat, Meds/Allgs Chart Reviewed, Consent Obtained/Reviewed and Anes Risks/Benef Reviewed Patient Risk: Low Procedure Risk: Intermediate Anesthetic Plan Anesthetic Plan: GA Disposition: Standard PACU
--- NOTE | 2021-08-19 11:39 | W.PM.OPN ---
Operative Note Operative Note Date of Service: 08/19/21 Narrative: Preop diagnosis: Acute appendicitis Postop diagnosis: Acute appendicitis, suppurative Procedure: Laparoscopic appendectomy Surgeon: Terence Garcia MD The patient is a 31 year female, who came to the emergency room early this morning because of the abdominal pain mostly lower abdomen but diffuse. A CAT scan showed findings consistent with acute appendicitis. I explained to her the technique of laparoscopic appendectomy and possible open appendectomy. I reviewed the risks, benefits, and alternatives and she had given consent She was brought to the operating room and placed supine on the table under general anesthesia via endotracheal tube. A Chun catheter was inserted. The abdomen wasprepped and draped in the usual sterile fashion. A surgical time-out was done. The patient received Cefotan 2 g IV preoperatively for prophylaxis. I made a short incision on the infraumbilical margin using a blade 15. And this was carried down through the full-thickness of the skin subcutaneous fat down to the fascia. The fascia was incised. The peritoneum was entered and through this incision on a Gloria port was introduced. Pneumoperitoneum was introduced to a pressure of 15 mm hg. From here on the rest of the procedure was done under vision with a 10 mm laparoscope. With laparoscopic visualization, I proceeded to insert a 5/12 mm port and left lower quadrant through a small incision. A 5 mm port was introduced through a small stab incision on the suprapubic margin. The patient was placed in a head-down and [id number] position. Graspers were placed through the working ports. I reflected the small bowel loops away from right lower until I was able to visualize the cecum. By following the cecum I was able to see the appendix which was markedly indurated, erythematous with some induration. Most of this story changes were on the distal 2/3 of the appendix. I was able to apply a grasper at the mid part of the appendix to put this on stretch. By doing so was able to visualize the base. The base was minimally inflamed. I proceeded to do blunt dissection of the base to create a mesenteric window. I then used an Endo-ZULY 30 mm stapler and positioned this across the base of the appendix. This was fired and the appendix was transected. I then serially divided the mesoappendix using the LigaSure until the entire appendix was completely . The appendix was retrieved through an endobag through the left lower quadrant incision I inserted the ports and deflated. I examined the area of dissection. There was no significant bleeding. I irrigated this area and suctioned out the irrigant fluid. I observed all 4 quadrants and there was no other pathology. There was evidence of any bowel injury The staple line appeared intact. Once hemostasis was ensured I proceeded to then position the omentum to cover the right lower quadrant. I desufflated the port sites and removed all ports under vision with the laparoscope. The umbilical port was removed last. The fascia of the umbilical incision was closed with [id number] Dexon 0 stitch. Skin closure was achieved on all incisions using Dexon 4-0 subcuticular sutures. Steri-Strips and dressings were applied. All incisions were infiltrated with Marcaine 0.5% for postop analgesia. The procedure was then completed The patient tolerated procedure well with no complications noted. Initial and final counts of sponges and instruments were correct. Estimatedblood loss about 20 cc. The patient was then extubated without difficulty and transferred to the recovery room with stable vital signs.
[2021-08-19] MEDS: Haloperidol Lactate 5 MG/ML VIAL IVPUSH (11:42)
--- NOTE | 2021-08-19 11:46 | PM.OP ---
Brief Operative Note Date of Service: 08/19/21 Pre-op diagnosis: Acute appendicitis Post-op diagnosis: same Procedure: Laparoscopic appendectomy Surgeon: Terence Garcia MD Anesthesia: GETA Was an Feather Trimmer used for this Procedure?: No Estimated blood loss (mL): 20 Pathology: other (Appendix) Condition: stable Disposition: PACU
[2021-08-19] MEDS: Acetaminophen 325 MG TABLET 650 MG PO (12:01)
[2021-08-19] MEDS: oxyCODONE HCl Immed Release 5 MG TABLET PO (12:01)
[2021-08-19 12:29] LABS: COVID-19 Test Negative (Negative); IDNOW Serial# 55D5AD1C
--- NOTE | 2021-08-19 13:44 | PM.EVENT ---
Event Note Date of Service: 08/19/21 Event Note: seen postop good pain control after lap appy looks well stable VS abd soft significant other updated likely home tomorrow morning
[2021-08-19] MEDS: 0.9 % Sodium Chloride 1,000 ML 60 ML IVCONT ×2 (17:10→20:53)
[2021-08-19] MEDS: Morphine Sulfate 4 MG/ML CARTRIDGE 3 MG IVPUSH (20:53)
[2021-08-20] MEDS: Morphine Sulfate 4 MG/ML CARTRIDGE 3 MG IVPUSH (01:44)
[2021-08-20 03:57] VITALS: BP 96/56; PULSE 77; RESP 16; TEMP 37.1; O2SAT 100
[2021-08-20] MEDS: 0.9 % Sodium Chloride 1,000 ML 60 ML IVCONT ×2 (05:39→08:17)
[2021-08-20 08:00] VITALS: BP 120/64; PULSE 74; RESP 17; TEMP 36.1; O2SAT 99
[2021-08-20] MEDS: oxyCODONE HCl Immed Release 5 MG TABLET 10 MG PO (08:17)
--- NOTE | 2021-08-20 08:20 | PM.PNGS ---
Subjective Subjective Date of Service: 08/20/21 <Imelda Merlos PA-C - Last Filed: 08/20/21 08:23> 08/21/21 <Terence Garcia MD - Last Filed: 08/21/21 16:00> Interval history: Feels much better. Does have soreness at incision sites. Had some ice cream yesterday but was having gas pains. OOB only to bathroom. <Imelda Merlos PA-C - Last Filed: 08/20/21 08:23> Physical Exam Vital Signs: Vital Signs: Last Vital Signs Temp 97.0 F 08/20/21 08:00 Pulse 74 08/20/21 08:00 Resp 17 08/20/21 08:00 BP 120/64 08/20/21 08:00 Pulse Ox 99 08/20/21 08:00 Body Mass Index 23.0 <Imelda Merlos PA-C - Last Filed: 08/20/21 08:23> Const: General: healthy appearing, comfortable, no acute distress and alert <Imelda Merlos PA-C - Last Filed: 08/20/21 08:23> Orientation/consciousness: patient oriented x3 <Imelda Merlos PA-C - Last Filed: 08/20/21 08:23> Resp: Effort & Inspection: normal respiratory effort <Imelda Merlos PA-C - Last Filed: 08/20/21 08:23> GI: Inspection: No distended and Yes incision (dressings c/d/i) <Imelda Merlos PA-C - Last Filed: 08/20/21 08:23> Palpation (GI): Soft to palpation and Tenderness to palpation present (GI) (mild, incisional) <Imelda Merlos PA-C - Last Filed: 08/20/21 08:23> Percussion: Yes normal to percussion <CAROLE Talavera Last Filed: 08/20/21 08:23> Skin: General skin exam: no rashes or lesions noted <CAROLE Talavera Last Filed: 08/20/21 08:23> Neuro: General: patient oriented x3 <CAROLE Talavera Last Filed: 08/20/21 08:23> Extrem: General: Yes no clubbing, cyanosis or edema <Imelda Merlos PA-C - Last Filed: 08/20/21 08:23> Procedures Date of Service Date of Service: 08/20/21 <Imelda Merlos PA-C - Last Filed: 08/20/21 08:23> Progress Note: A&P Assessment and plan (1) Appendicitis: Status: Acute <Imelda Merlos PA-C - Last Filed: 08/20/21 08:23> (2) S/P laparoscopic appendectomy: Status: Acute <Imelda Merlos PA-C - Last Filed: 08/20/21 08:23> Assessment and Plan: doing well postop good pain control ok to dc home today seen and examined agree with ANNELIESE Mrelos <Terence Garcia MD - Last Filed: 08/21/21 16:00> Assessment and Plan: 31 year old female admitted with acute appendicitis now POD #1 s/p lap appy. She is doing well post op, pain controlled. Will reassess later this morning- if tolerating solid diet, stable for d/c to home today. Patient comfortable with plan. F/u in office in 2 weeks. <Imelda Merlos PA-C - Last Filed: 08/20/21 08:23> Fall Risk Details Current Medications: Current Medications Albuterol Sulfate (Albuterol Sulfate (0.083%) 2.5 Mg/3 Ml Vial.Neb) 2.5 mg INHALE ONCE PRN PRN Reason: Wheezing Fentanyl (Fentanyl Citrate/Pf 100 Mcg/2 Ml Vial) 50 mcg IVPUSH Q5M PRN; Protocol PRN Reason: Pain, Severe (Pain Scale 7-10) Hydromorphone HCl (Hydromorphone Hcl 0.5 Mg/0.5 Ml Syringe) 0.5 mg IVPUSH Q5M PRN; Protocol PRN Reason: Pain, Severe (Pain Scale 7-10) Last Admin: 08/19/21 17:07 Dose: 0.5 mg Documented by: Sodium Chloride (Ns) 1,000 mls @ 100 mls/hr IVCONT .Q10H MARISABEL Last Admin: 08/20/21 08:17 Dose: 60 mls/hr Documented by: Promethazine HCl 12.5 mg/ (Sodium Chloride) 50.5 mls @ 202 mls/hr IV ONCE PRN PRN Reason: Nausea and Vomiting Ibuprofen (Ibuprofen 600 Mg Tablet) 600 mg PO Q6H PRN PRN Reason: Pain, Moderate (Pain Scale 4-6 Morphine Sulfate (Morphine Sulfate 4 Mg/Ml Cartridge) 3 mg IVPUSH Q3H PRN; Protocol PRN Reason: Pain, Severe (Pain Scale 7-10) Last Admin: 08/20/21 01:44 Dose: 3 mg Documented by: Ondansetron HCl (Ondansetron Hcl 4 Mg/2 Ml Vial) 4 mg IVPUSH Q8H PRN PRN Reason: nausea Oxycodone HCl (Oxycodone Hcl Immed Release 5 Mg Tablet) 10 mg PO Q6H PRN PRN Reason: Pain, Moderate (Pain Scale 4-6 Last Admin: 08/20/21 08:17 Dose: 10 mg Documented by: Sodium Chloride (0.9 % Sodium Chloride Flush 3 Ml Syringe) [facility] Last Admin: 08/19/21 22:43 Dose: Not Given Documented by: <Imelda Merlos PA-C - Last Filed: 08/20/21 08:23> Time Spent With Patient Time: Total time spent is greater than 50% in coordination of care (as documented) at patient's floor/unit and/or counseling patient: <Imelda Merlos PA-C - Last Filed: 08/20/21 08:23> Time with patient: 15 - 24 minutes <Imelda Merlos PA-C - Last Filed: 08/20/21 08:23> Quality Stroke Does the patient have a stroke diagnosis?: No <Imelda Merlos PA-C - Last Filed: 08/20/21 08:23> VTE Prior VTE?: No <Imelda Merlos PA-C - Last Filed: 08/20/21 08:23> VTE Risk Level:: Medical - low <CAROLE Talavera Last Filed: 08/20/21 08:23> VTE Device Contraindication: N/A - Device Ordered <Imelda Merlos PA-C - Last Filed: 08/20/21 08:23> VTE Drug Contraindication: Treatment Not Indicated <Imelda Merlos PA-C - Last Filed: 08/20/21 08:23>
--- NOTE | 2021-08-20 09:33 | PM.DS ---
DS: Providers Provider Date of Service: 08/20/21 Date of admission: 08/19/21 12:18 Primary care physician: Lorenzo Physician Attending physician on admission: Terence Garcia DS: Diagnosis Discharge Diagnosis (1) Appendicitis: Status: Acute (2) S/P laparoscopic appendectomy: Status: Acute DS: Summary Hospital Course Hospital Course: BRIEF HPI: Bella Quiroz is a 31 year old female who came to the ED early this morning because of abdominal pain. She describes this diffuse but mostly on the lower abdomen. She states the pain had persisted throughout the night. She describes some nauseaand vomitting as well. She denies any similar episodes in the past. She had no fever or chills. She says she is healthy overall. She had a leukocytosis of 17.[address] scan which showed thickening of the appendix, which is fluid filled, with periappendiceal fluid c/w acute appendicitis. HOSPITAL COURSE: The patient was admitted to the surgical service under Dr. Garcia for further treatment of the acute appendicitis. Treatment options were discussed and she elected to proceed with appendectomy. She was added onto the OR schedule for that day. On 08/19/21, a laparoscopic appendectomy was performed by Dr. Garcia without complication. The patient tolerated the procedure well and was admitted back to the medical/surgical floor for observation. She had an uncomplicated recovery course. On POD #1, she was doing well. Her pain was well controlled and she was OOB without difficulty and tolerating a solid diet. Her abdomen was benign with dressings c/d/i and appropriate post op tenderness. She felt ready for discharge to home. She is to follow up with Dr. Garcia in office in 2 weeks. Status at Discharge Functional status at discharge: independent ambulation Overall status at discharge: patient is progressing back to baseline Time Spent with Patient Time attestation: Total time spent providing and/or coordinating discharge services: Discharge coordination time: Less than 30 minutes Quality: Stroke Does the patient have a stroke diagnosis?: No Physical Exam Vital Signs: Vital Signs: Last Vital Signs Temp 97.0 F 08/20/21 08:00 Pulse 74 08/20/21 08:00 Resp 17 08/20/21 08:00 BP 120/64 08/20/21 08:00 Pulse Ox 99 08/20/21 08:00 Body Mass Index 23.0 Const: General: healthy appearing, comfortable and no acute distress Orientation/consciousness: patient oriented x3 Resp: Effort & Inspection: normal respiratory effort GI: Inspection: No distended and Yes incision (dressings c/d/i) Palpation (GI): Soft to palpation, Tenderness to palpation present (GI) (mild, incisional), no guarding and not rigid Percussion: Yes normal to percussion Skin: General skin exam: no rashes or lesions noted Neuro: General: patient oriented x3 Extrem: General: Yes no clubbing, cyanosis or edema DS: Data Data Completed and Pending Pending studies at discharge: Pending at discharge 08/19/21 11:41 Surgical [PTH] Routine Labs on day of discharge: Laboratory Results - last 24 hr 08/19/21 12:07 COVID-19 ([facility]) Negative COVID-19 Clin Com See Note Discharge Plan Discharge Patient Disposition: Home, Self-Care Discharge Diagnosis: Acute appendicitis Referrals: Terence Garcia MD [Physician] - 1 Week Physician,None [Primary Care Provider] - 1 Week Discharge Medications: New oxycodone 5 mg tablet 5 mg PO Q4H PRN (Reason: pain (scale score 7-10)) Qty: 24 RF: 0 docusate sodium [Colace] 100 mg capsule 100 mg PO BID PRN (Reason: constipation) Qty: 30 RF: 0 acetaminophen [Tylenol Extra Strength] 500 mg tablet 1,000 mg PO Q6H PRN (Reason: pain) Qty: 60 RF: 0 Discharge Orders: Discharge Order (Routine); Ordered 08/20/21 Ordered By: Imelda Chris Diet: regular diet Activity on Discharge: No heavy lifting Stand Alone Forms: Patient Portal Discharge page Activity Restrictions/Additional Instructions: If the incision area is tender, you may apply an ice pack for short intervals (No more than 20 minutes on, followed by at least 20 minutes off). Do not apply heat. Do not use creams, lotions, or topical antibiotics unless instructed to do so by your surgeon. These can cause infection or allergic reaction. OK to shower Okay to change dressings with Band-Aids daily No lifting more than 20 lb No strenuous activities Call the office for follow-up in 2 weeks - with Dr. Garcia Call Your Doctor If: -Your temperature exceeds 101.5? F -You experience excessive pain or swelling -You have an unexpected reaction to medication -You have excessive bleeding -You experience continued vomiting/nausea -Your incision begins to separate -Your incision shows signs of infection such as increased redness, swelling, excessive pain, drainage (light blood or clear fluid is normal) or heat Care Plan Goals: Smoking cessation Control of drug abuse Health Concerns: Smoking Drug abuse Plan of Treatment: Oral pain meds Assessment: Doing well postop
--- NOTE | 2021-08-20 10:18 | MHC.CM.PN ---
EMR REVIEWED, PT ADMITTED W/APPENDICITIS AND S/P LAP APPANDECTOMY, CM MET W/PT WHO IS INDEPENDENT, NO DME AND HOME SERVICES, CM DISCUSSED SA TX W/PT AND PT IS DECLINING CARE TEAM/RECOVERY SUPPORT AND REPORTS SHE ONLY USES RECREATIONALLY, PT HAS NO PCP AND WAS OFFERED & GIVEN PAMPHLET W/[facility] PROVIDERS AND DIRECTIONS ON HOW TO SIGN UP FOR A DOCTOR, PT COMPLETED A HCP W/CM AND NAMED HER S.O. GORAN ARIASRT [phone]. D/C PLAN: HOME SELF-CARE W/OUTPT FOLLOW-UP W/DR BERMAN, PT PROVIDED W/C SHUTTLE VOUCHER AND IS BEING TRANSPORTED AT 10:30AM
--- NOTE | 2021-08-20 14:01 | HO.POSTANES ---
Post Anesthesia Evaluation Post Anesthesia Evaluation Vital Signs: Vital Signs Temp Pulse Resp BP Pulse Ox 08/20/21 08:00 97.0 F 74 17 120/64 99 08/20/21 03:57 98.8 F 77 16 96/56 L 100 Anesthesia: General Endotracheal-GETA Mental Status: Awake Pain Control: Satisfactory Nausea/Vomiting: None Hydration: Adequate Anesthesia-Related Issues: No Anes. Related Issues
== END 2021-08-20 10:32 | disposition home or self-care (01) | DRG 234 ==
LOC: HO.S3 12:19
PROVIDERS: Emergency Medicine; Emergency Medicine Emergency Medical Services; Admitting Provider Surgery; Visit Provider Surgery
PROC: 0DTJ4ZZ Resection of Appendix, Percutaneous Endoscopic Approach (ICD-10-PCS; CPT 44970; principal; 2021-08-19 09:30)
DX: K35.80 Unspecified acute appendicitis (principal); F17.210 Nicotine dependence, cigarettes, uncomplicated; Z20.822 Contact with and (suspected) exposure to COVID-19; Z71.6 Tobacco abuse counseling; Z79.899 Other long term (current) drug therapy
CPT/HCPCS: 36415; 74177; 80048; 80076; 81001; 81025; 83690; 85025; 87635; 88304; J0696; J1100; J1170; J2250; J2270; J2405; J2550; J3010; Q9967

== ENCOUNTER 2021-08-24 05:35 | Emergency (ER) | payer OTHER, SELFPAY ==
--- NOTE | ~2021-08-24 | US_ITS ---
EXAMINATION: US ABDOMEN LIMITED CLINICAL INFORMATION: Elevated liver function tests. COMPARISON: CT of the abdomen and pelvis 08/19/2021 TECHNIQUE: Real-time imaging of the right upper quadrant abdominal viscera. FINDINGS: PANCREAS: Normal. LIVER: Liver echotexture is increased.. The liver is normal in size. The liver contour is normal. No focal hepatic lesion. There is no intrahepatic biliary duct dilatation seen. GALLBLADDER: Normal. The gallbladder is physiologically distended without evidence of stones, sludge, polyps, wall thickening or pericholecystic fluid. COMMON BILE DUCT: Normal in caliber measuring 0.6 cm in diameter. RIGHT KIDNEY: Normal. No hydronephrosis. No renal calculi or focal parenchymal lesions. The kidney measures 12 cm in maximum dimension. FREE FLUID: None. US/US abdomen limited IMPRESSION: Echogenic liver probably representing fatty infiltration. Otherwise unremarkable exam.
[2021-08-24 05:47] VITALS: BP 118/85; BP 131/85; PULSE 104; PULSE 108; RESP 16; O2SAT 98; BMI 23.9
--- NOTE | 2021-08-24 05:54 | PC.NURSE ---
pt requesting water, being a rude to staff and ems. pt overdosed and by stander gave him 2 doses of Narcan.
--- NOTE | 2021-08-24 06:34 | ED.OVERDOSE ---
HPI - Overdose General Chief Complaint: Overdose Stated Complaint: od unknown narcan amount given Time Seen by Provider: 08/24/21 06:34 Source: patient and EMS Mode of arrival: EMS Limitations: no limitations History of Present Illness HPI Narrative: used heroin was found laying down on the ground - no trauma reported, no SI but wants detox MD complaint: accidental overdose Onset (ago): minute(s) Context: Intentional Overdose: relationship problems Context: Accidental Overdose: wanted to get high Treatments Prior to Arrival: narcan (2mg IN with EMS good response) Related Data Previous Rx's Medication Instructions Recorded acetaminophen 500 mg tablet 1,000 mg PO Q6H PRN #60 tab 08/20/21 (Tylenol Extra Strength) docusate sodium 100 mg capsule 100 mg PO BID PRN #30 cap 08/20/21 (Colace) oxycodone 5 mg tablet 5 mg PO Q4H PRN #24 tab 08/20/21 Allergies Allergy/AdvReac Type Severity Reaction Status Date / Time No Known Allergies Allergy Verified 03/07/21 14:26 Review of Systems Review of Systems: Constitutional : No Fever, No Chills ENT/Mouth : No Ear Pain, No Nasal Congestion, No sore throat Eyes: No Eye Pain, No Swelling, No Redness Cardiovascular : No Chest Pain, No SOB Respiratory : No Cough, No Sputum, No Dyspnea Gastrointestinal : No Nausea, No Vomiting, No Diarrhea, No Hematochezia, No Melena Genitourinary : No Dysuria, No Urinary Frequency, No Hematuria Musculoskeletal : No Myalgias Skin : No Skin Lesions, No rash Neuro : No Weakness, No Numbness, No Paresthesias, No Dizziness, No Headache Psych : positive Anxiety, positive Depression, no SI/HI Heme/Lymph: No Lymphadenopathy Endocrine : No Polyuria, No Polydipsia All other systems reviewed and are negative PMFSH Past Medical History Attestation statement: The following information was validated with the patient. Medical History Cocaine use Opiate abuse, continuous Smoker Surgical History (Updated 08/24/21 @ 06:48 by Brooklyn Pringle DO) S/P laparoscopic appendectomy Social History Social History Household Members: Significant Other Housing: Apartment Do you presently have visiting nurse or other home services: Yes Alcohol intake: current Patient Tobacco Use Status: Current everyday Tobacco user Tobacco use type: Cigarette e-Cigarette/Vaping Use: Never Used Substance Use Type: Crack/Cocaine Advance Directives: No Patient : No service: No Current occupational status: unemployed Physical Exam Vital Signs: Vital Signs: Last Vital Signs Temp 98.0 F 08/24/21 06:49 Pulse 78 08/24/21 13:04 Resp 15 08/24/21 13:04 BP 107/60 08/24/21 13:04 Pulse Ox 97 08/24/21 13:04 Body Mass Index 23.9 Appearance: Alert. Oriented X3. No acute distress. Eyes: Pupils equal, round and reactive to light. ENT: Pharynx normal. Atraumatic Neck: Normal inspection. Neck supple. CVS: Normal heart rate and rhythm. Pulses normal. Respiratory: No respiratory distress. Breath sounds normal. Abdomen: Soft and non-tender. Skin: Skin warm and dry. Normal skin color. Normal skin turgor. Extremities: No lower extremity edema. No calf ttp Neuro: Oriented X 3. No motor deficit. No sensory deficit. Course Course Course Narrative: recent elevations in LFTs like ETOH vs hepatitis - panel sent off as well as US will repeat LFTs in a few hours to trend the LFTs patient now states she has untreated hep C - bili not up no signs of obstruction aware she needs treatmetn for this and to avoid tylenol/ETOH LFTS trending down Physician observation started at 353pm Patient placed in physician observation because the patient needed more time for possible detox placement. At the time observation was started the patient's vitals were stable, patient is sleeping comfortably, Neuro: nonfocal, CV RRR, Lungs clear MDM - Overdose MDM Narrative Medical decision making narrative: 31 yo female with hx of substance abuse - unintentional overdose no SI no signs of trauma. Wants to go to detox - at this time will need observation and recovery coaches Lab Data Result diagrams: 08/24/21 09:45 08/24/21 09:46 Labs: Lab Results 08/24/21 08/24/21 08/24/21 Range/Units 09:45 09:46 09:48 WBC 7.4 (4.8-10.8) X10*3/uL RBC 3.98 L (4.20-5.50) X10*6/uL Hgb 12.3 (12.0-16.0) g/dl Hct 36.6 L (37-47) % MCV 92.0 (80-98) fL MCH 30.9 (27.0-33.0) pg MCHC 33.6 (31.0-35.0) g/dl RDW 13.6 (11.0-16.0) % Plt Count 237 (160-400) X10*3/uL MPV 9.5 (9.4-12.3) fL Immature Gran % (Auto) 0.5 H (0.0-0.4) % Neut % (Auto) 58.7 (45-73) % Lymph % (Auto) 31.7 (20-40) % [place] % (Auto) 7.0 (2-11) % Eos % (Auto) 1.7 (0-4) % Baso % (Auto) 0.4 (0-2) % Lymph # (Auto) 2.4 (1.2-4.9) X10*3/uL [place] # (Auto) 0.5 (0.1-1.2) X10*3/uL Eos # (Auto) 0.1 (0.0-0.4) X10*3/uL Baso # (Auto) 0.0 (0.0-0.2) X10*3/uL Abs Immat Gran (auto) 0.04 H (0.00-0.03) X10*3/uL Absolute Neuts (auto) 4.4 (2.0-8.3) X10*3/uL Absolute Nucleated RBC 0.000 (0.0-0.012) X10*3/uL Nucleated RBC % (auto) 0.0 (0.0-0.2) /100WBC Sodium 138 (135-145) mmol/L Potassium 3.7 (3.3-5.1) mmol/L Chloride 107 (96-108) mmol/L Carbon Dioxide 21 L (22-29) mmol/L Anion Gap 14 (12-20) BUN 10 (9-16) mg/dL Creatinine 0.75 (0.5-1.4) mg/dL Estim Creat Clear Calc 89.8 Estimated GFR > 60 Random Glucose 104 (60-115) mg/dL Calcium 9.1 (8.4-10.2) mg/dL Total Bilirubin 0.5 (0.0-1.0) mg/dL Direct Bilirubin 0.3 (0.0-0.5) mg/dL AST 494 H (5-31) U/L ALT 722 H (0-31) U/L Alkaline Phosphatase 215 H D (39-117) U/L Total Protein 6.7 (6.5-8.0) g/dL Albumin 3.9 (3.5-5.0) g/dL Urine Test (NEGATIVE) COVID-19 (ALBA) Negative (Negative) COVID-19 Clin Com See Note Hepatitis A IgM Ab (Nonreactive) Hep Bs Antigen (Negative) Hep Bs Antibody (Nonreactive) Hep B Core Total Ab (Nonreactive) Hepatitis C Ab (EIA) (Nonreactive) HIV 1&2 Ab/P24 Ag 4thGn (Nonreactive) 08/24/21 08/24/21 08/24/21 Range/Units 09:48 11:05 13:59 WBC (4.8-10.8) X10*3/uL RBC (4.20-5.50) X10*6/uL Hgb (12.0-16.0) g/dl Hct (37-47) % MCV (80-98) fL MCH (27.0-33.0) pg MCHC (31.0-35.0) g/dl RDW (11.0-16.0) % Plt Count (160-400) X10*3/uL MPV (9.4-12.3) fL Immature Gran % (Auto) (0.0-0.4) % Neut % (Auto) (45-73) % Lymph % (Auto) (20-40) % [place] % (Auto) (2-11) % Eos % (Auto) (0-4) % Baso % (Auto) (0-2) % Lymph # (Auto) (1.2-4.9) X10*3/uL [place] # (Auto) (0.1-1.2) X10*3/uL Eos # (Auto) (0.0-0.4) X10*3/uL Baso # (Auto) (0.0-0.2) X10*3/uL Abs Immat Gran (auto) (0.00-0.03) X10*3/uL Absolute Neuts (auto) (2.0-8.3) X10*3/uL Absolute Nucleated RBC (0.0-0.012) X10*3/uL Nucleated RBC % (auto) (0.0-0.2) /100WBC Sodium (135-145) mmol/L Potassium (3.3-5.1) mmol/L Chloride (96-108) mmol/L Carbon Dioxide (22-29) mmol/L Anion Gap (12-20) BUN (9-16) mg/dL Creatinine (0.5-1.4) mg/dL Estim Creat Clear Calc Estimated GFR Random Glucose (60-115) mg/dL Calcium (8.4-10.2) mg/dL Total Bilirubin 0.7 (0.0-1.0) mg/dL Direct Bilirubin 0.4 (0.0-0.5) mg/dL AST 482 H (5-31) U/L ALT 696 H (0-31) U/L Alkaline Phosphatase 211 H (39-117) U/L Total Protein 6.5 (6.5-8.0) g/dL Albumin 3.8 (3.5-5.0) g/dL Urine Test NEGATIVE (NEGATIVE) COVID-19 (ALBA) (Negative) COVID-19 Clin Com Hepatitis A IgM Ab Nonreactive (Nonreactive) Hep Bs Antigen Negative (Negative) Hep Bs Antibody REACTIVE (Nonreactive) Hep B Core Total Ab Nonreactive (Nonreactive) Hepatitis C Ab (EIA) Reactive H (Nonreactive) HIV 1&2 Ab/P24 Ag 4thGn Nonreactive (Nonreactive) Discharge Plan Discharge Clinical Impression: Opiate overdose, Elevated LFTs, Hepatitis C Instructions: Opioid Use Disorder (ED), Hepatitis C (ED) Prescriptions: No Action oxycodone 5 mg tablet 5 mg PO Q4H PRN (Reason: pain (scale score 7-10)) Qty: 24 RF: 0 docusate sodium [Colace] 100 mg capsule 100 mg PO BID PRN (Reason: constipation) Qty: 30 RF: 0 acetaminophen [Tylenol Extra Strength] 500 mg tablet 1,000 mg PO Q6H PRN (Reason: pain) Qty: 60 RF: 0
--- NOTE | 2021-08-24 06:40 | PC.NURSE ---
PT stated that she needs help with being admitted to a detox facility. PT stated that if she leaves here on her own, she will walk out in the streets of [place] and find more drugs. PT overdosed on heroin last night and that event made her realize she really needs help. PT denies SI. PT would like to be speak with oil recovery unit operator to find available options.
[2021-08-24 06:49] VITALS: BP 115/86; PULSE 88; RESP 12; TEMP 36.7; O2SAT 98
[2021-08-24 09:26] VITALS: BP 117/73; PULSE 79; RESP 14; O2SAT 96
[2021-08-24] MEDS: LORazepam 1 MG TABLET 2 MG PO ×3 (09:28→20:52)
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
[2021-08-24 09:53] LABS: MANUAL DIFF FLAG NO
[2021-08-24 09:55] LABS: Basophils Percent Auto 0.4 % (0-2); Eosinophils Absolute Auto 0.1 X10*3/uL (0.0-0.4); Eosinophils Percent Auto 1.7 % (0-4); Hematocrit 36.6 % (37-47); Hemoglobin 12.3 g/dl (12.0-16.0); Imm Gran Abs Auto 0.04 X10*3/uL (0.00-0.03); Imm Gran Pct Auto 0.5 % (0.0-0.4); Lymphocytes Absolute Auto 2.4 X10*3/uL (1.2-4.9); Lymphocytes Percent Auto 31.7 % (20-40); Mean Corpuscular HGB Conc 33.6 g/dl (31.0-35.0); Mean Corpuscular Hemoglobin 30.9 pg (27.0-33.0); Mean Platelet Volume 9.5 fL (9.4-12.3); Monocytes Absolute Auto 0.5 X10*3/uL (0.1-1.2); Neutrophils Absolute Auto 4.4 X10*3/uL (2.0-8.3); Neutrophils Percent Auto 58.7 % (45-73); Platelet Count 237 X10*3/uL (160-400); Red Blood Count 3.98 X10*6/uL (4.20-5.50); Red Cell Distribution Width 13.6 % (11.0-16.0); White Blood Count 7.4 X10*3/uL (4.8-10.8)
[2021-08-24 09:59] LABS: UPreg QC Valid YES; Urine Pregnancy NEGATIVE (NEGATIVE)
[2021-08-24 10:12] LABS: Alanine Aminotransferase 722 U/L (0-31); Albumin Level 3.9 g/dL (3.5-5.0); Alkaline Phosphatase 215 U/L (39-117); Anion Gap 14 (12-20); Aspartate Amino Transferase 494 U/L (5-31); Bilirubin Direct 0.3 mg/dL (0.0-0.5); Bilirubin Total 0.5 mg/dL (0.0-1.0); Blood Urea Nitrogen 10 mg/dL (9-16); Calcium 9.1 mg/dL (8.4-10.2); Carbon Dioxide 21 mmol/L (22-29); Chloride 107 mmol/L (96-108); Creatinine Clr Calc Pharmacy 89.8; Estimated Glomerular Filt Rate > 60; Glucose Random 104 mg/dL (60-115); Potassium 3.7 mmol/L (3.3-5.1); Sodium 138 mmol/L (135-145); Total Protein 6.7 g/dL (6.5-8.0)
[2021-08-24 10:21] LABS: COVID-19 Test Negative (Negative)
[2021-08-24] MEDS: Ondansetron ODT 4 MG TAB.RAPDIS TRANSLINGU (11:04)
[2021-08-24 11:59] LABS: HBS Num1 23.79 mIU/mL (0-7.99); HBc Num1 0.22 S/CO (0.00-0.79); HIV AB/AG Nonreactive (Nonreactive); HIV Num 1 0.17 S/CO (0.00-0.99); Hepatitis A Antibody IgM 0.16 Index (0-0.79); Hepatitis B Core Antibody Nonreactive (Nonreactive); Hepatitis B Surface Antigen Negative (Negative); ~HepC Num1 12.63 S/CO (0.00-0.79); ~Hepatitis A Antibody IgM Nonreactive (Nonreactive); ~Hepatitis B Surface Antibody REACTIVE (Nonreactive); ~Hepatitis C Antibody Reactive (Nonreactive)
[2021-08-24 13:04] VITALS: BP 107/60; PULSE 78; RESP 15; O2SAT 97
[2021-08-24 14:29] LABS: Alanine Aminotransferase 696 U/L (0-31); Albumin Level 3.8 g/dL (3.5-5.0); Alkaline Phosphatase 211 U/L (39-117); Aspartate Amino Transferase 482 U/L (5-31); Bilirubin Direct 0.4 mg/dL (0.0-0.5); Bilirubin Total 0.7 mg/dL (0.0-1.0); Total Protein 6.5 g/dL (6.5-8.0)
--- NOTE | 2021-08-24 16:30 | MHC.RECOVRN ---
Bedsearch exhausted, no ATS beds available today. Pt experiencing opiate withdrawal, including vomiting and sweating profusely, and interested in initiating Suboxone in the ED. ED provider aware. Pt to be held overnight and resume ATS bedsearch in the morning.
[2021-08-24] MEDS: Buprenorphine/Naloxone 2/0.5mg FILM 1 FILM SUBLINGUAL (16:44)
[2021-08-24 20:22] VITALS: BP 112/63; PULSE 72; RESP 16; TEMP 36.7; O2SAT 99
--- NOTE | 2021-08-25 05:55 | PC.NURSE ---
Patient slept through the night, no distress observed/reported, asymptomatic of withdrawal, behavior appropriate, medication compliant, disposition is detox bed search per parent coach, will continue to monitor.
[2021-08-25 06:29] VITALS: BP 107/51; PULSE 67; RESP 16; TEMP 36.4; O2SAT 96
--- NOTE | 2021-08-25 07:38 | PC.NURSE ---
patient remains asleep at present, respirations are even and unlabored. patient appears in no distress.
[2021-08-25] MEDS: LORazepam 1 MG TABLET 2 MG PO (08:48)
[2021-08-25 08:54] VITALS: BP 104/79; PULSE 79; RESP 14; TEMP 36.4; O2SAT 98
[2021-08-25] MEDS: Buprenorphine/Naloxone 4/1 mg FILM 1 FILM SUBLINGUAL (10:21)
--- NOTE | 2021-08-25 14:17 | MHC.RECOVSUP ---
Recovery Support note: Patient specifically requested to go to [facility] for ATS. No beds were available today. Discussed with patient. Patient agreeable to discharge with outpatient resources. Patient reports she is able to return home and that housing is stable. Patient was given 4mg of Suboxone today and is discharging with a script sent to Jovanna Sheikh to bridge her until walk-in hours at the [facility] on Friday. Patient provided with information on the [facility] and outpatient resources. Discussed case with patient's RN and ED provider.
[2021-08-25] MEDS: Naloxone HCl Nasal TAKE HOME 4 MG SPRAY NOSTRILALT (14:23)
[2021-08-25] MEDS: LORazepam 1 MG TABLET PO (14:24)
== END 2021-08-25 14:29 | disposition home or self-care (01) ==
PROVIDERS: Emergency Provider Emergency Medicine
DX: T40.1X1A Poisoning by heroin, accidental (unintentional), initial encounter (principal); Y92.9 Unspecified place or not applicable; F11.10 Opioid abuse, uncomplicated; R79.89 Other specified abnormal findings of blood chemistry; B19.20 Unspecified viral hepatitis C without hepatic coma; R10.9 Unspecified abdominal pain; Z20.822 Contact with and (suspected) exposure to COVID-19; Z79.899 Other long term (current) drug therapy
CPT/HCPCS: 36415; 76705; 80048; 80076; 81025; 85025; 86704; 86706; 86709; 86803; 87340; 87389; 87635; 99285

== ENCOUNTER 2021-11-22 12:42 | Inpatient (IN) | payer OTHER, SELFPAY ==
[2021-11-22 13:06] VITALS: BP 162/90; PULSE 112; RESP 18; TEMP 36.9; O2SAT 98; BMI 21.2
[2021-11-22 13:20] VITALS: PULSE 112
--- NOTE | 2021-11-22 13:34 | ED.PSYCH ---
HPI - Psych General Chief Complaint: Psychiatric Symptoms Stated Complaint: SI Time Seen by Provider: 11/22/21 13:06 Source: patient Mode of arrival: ambulatory Limitations: no limitations History of Present Illness HPI Narrative: 31-year-old female with a history of hepatitis C, polysubstance abuse, alcohol abuse who presents to the ER with severe depression and binging on multiple drugs and alcohol for the last 2-3 months. She has been on a downward spiral and feels like she has nothing to live her. She has been drinking daily with up to a gallon of vodka per day for the last 4 days. She is also snorting cocaine and smoking crack. She has not slept in 4 days or eaten much of anything. She has been through withdrawal in multiple detox is in the past but she reports this is the worst she has ever felt. She has a 1-1/2-year-old daughter in feels like her daughter would be better off without her. She attempted suicide in the past with Seroquel overdose. She has been essentially trying to overdose on his much drugs and alcohol as she can last 4 days but has been unsuccessful. MD complaint: suicidal ideation, anxiety and substance abuse Onset (ago): month(s) Duration: constant History of same: Yes Relieving factors: none Exacerbating factors: alcohol and drug use Context: recent alcohol abuse and recent drug abuse Associated psychiatric symptoms: depression, suicidal ideation, racing thoughts and auditory hallucinations Associated symptoms: headache, nausea and insomnia Treatments prior to arrival: none If self harm: admits thoughts of self harm and has plan Details of plan: Overdose Related Data Home Medications Medication Instructions Recorded Confirmed hydroxyzine HCl 50 mg tablet 50 mg PO TID PRN 08/24/21 11/22/21 Allergies Allergy/AdvReac Type Severity Reaction Status Date / Time No Known Allergies Allergy Verified 03/07/21 14:26 Review of Systems Review of Systems: Constitutional: No Fever, No Chills ENT/Mouth: No sore throat, No Rhinorrhea, No Swallowing Difficulty Eyes: No Eye Pain, No Swelling, No Redness Cardiovascular: No Chest Pain, No SOB, No Orthopnea, No Edema Respiratory: No Cough, No Sputum, No Wheezing, No dyspnea Gastrointestinal: + Nausea, No Vomiting, No Diarrhea, No abdominal Pain Genitourinary: No Dysuria, No Urinary Frequency, No Hematuria Musculoskeletal: No joint pain, No Myalgias Skin: No Skin Lesions, No rash Neuro: No Weakness, No Numbness, No Dizziness, + Headache Psych: + Anxiety/Panic, + Depression, +SI, No HI, +AH, No VH Heme/Lymph: + Bruising, No Lymphadenopathy Endocrine: No Polyuria, No Polydipsia PMF Past Medical History Medical History Cocaine use Opiate abuse, continuous Smoker Surgical History (Updated 08/24/21 @ 06:48 by Brooklyn Pringle DO) S/P laparoscopic appendectomy Social History Social History Household Members: Significant Other Housing: Apartment Do you presently have visiting nurse or other home services: Yes Alcohol intake: current Patient Tobacco Use Status: Current everyday Tobacco user Tobacco use type: Cigarette e-Cigarette/Vaping Use: Never Used Substance Use Type: Crack/Cocaine Advance Directives: No Advance Directives Information Provided: Yes Patient : No service: No Current occupational status: unemployed Physical Exam Vital Signs: Vital Signs: Last Vital Signs Temp 98.9 F 11/22/21 13:53 Pulse 108 H 11/22/21 16:00 Resp 18 11/22/21 16:00 BP 129/68 11/22/21 16:00 Pulse Ox 100 11/22/21 16:00 BMI result Body Mass Index 21.2 Appearance: Alert, appears older than stated age. Anxious. Oriented X3. No acute distress. Eyes: Pupils equal, round and reactive to light. ENT: Pharynx normal. Neck: Normal inspection. Neck supple. CVS: Tachycardic, regular rhythm. Pulses normal. Respiratory: No respiratory distress. Breath sounds normal. Abdomen: Soft and nontender. +BS x4 Skin: Skin warm and dry. Normal skin color. Normal skin turgor. No rashes. Extremities: No lower extremity edema. No evidence of track march. Neuro/psych: Oriented X 3. No motor deficit. No sensory deficit. CN II-XII intact. Hyperverbal, depressive thoughts with suicidal thoughts. Course Course Course Narrative: 31-year-old female with a history of untreated hepatitis C polysubstance abuse and alcohol abuse presents to the ER with worsening depression, suicidal thoughts in the setting of recent binge. She is tachycardic on arrival and appears anxious and restless. Her initial CIWA is 24 and her cows is 16. Concern for acute alcohol withdrawal in need for inpatient admission. Reevaluation(s) Reevaluation #1: CIWA remains 21 after ativan. Labs showing mild transaminitis, decreased from prior. Likely due to ETOH abuse and underlying hepatitis. She has no right upper quadrant tenderness. She reported a sore throat so strep swab was sent and she has found be strep positive. Started amoxicillin. U tox is positive for opiates, fentanyl, PCP, cocaine. Discussed the results of her U tox with the patient. She has never done PCP before and did not even know it was. She admited to auditory hallucinations a few days ago and thinks her cocaine was laced with this. Her ETOH level is 40 and she is actively withdrawing. Will start phenobarb protocol and admit for acute alcohol withdrawal. MDM - Psych Lab Data Attestation: I reviewed the patient's lab results. Result diagrams: 11/22/21 13:30 11/22/21 13:30 Labs: Lab Results 11/22/21 11/22/21 11/22/21 Range/Units 13:30 13:30 13:30 WBC 11.7 H (4.8-10.8) X10*3/uL RBC 3.95 L (4.20-5.50) X10*6/uL Hgb 12.1 (12.0-16.0) g/dl Hct 36.1 L (37.0-47.0) % MCV 91.4 (80.0-98.0) fL MCH 30.6 (27.0-33.0) pg MCHC 33.5 (31.0-35.0) g/dl RDW 13.5 (11.0-16.0) % Plt Count 210 (160-400) X10*3/uL MPV 10.0 (9.4-12.3) fL Immature Gran % (Auto) 0.4 (0.0-0.4) % Neut % (Auto) 71.7 (45-73) % Lymph % (Auto) 19.6 L (20-40) % [place] % (Auto) 4.9 (2-11) % Eos % (Auto) 3.1 (0-4) % Baso % (Auto) 0.3 (0-2) % Lymph # (Auto) 2.3 (1.2-4.9) X10*3/uL [place] # (Auto) 0.6 (0.1-1.2) X10*3/uL Eos # (Auto) 0.4 (0.0-0.4) X10*3/uL Baso # (Auto) 0.0 (0.0-0.2) X10*3/uL Abs Immat Gran (auto) 0.05 H (0.00-0.03) X10*3/uL Absolute Neuts (auto) 8.4 H (2.0-8.3) x10*3/uL Absolute Nucleated RBC 0.000 (0.0-0.012) X10*3/uL Nucleated RBC % (auto) 0.0 (0.0-0.2) /100WBC Sodium 136 (135-145) mmol/L Potassium 3.5 (3.3-5.1) mmol/L Chloride 106 (96-108) mmol/L Carbon Dioxide 20 L (22-29) mmol/L Anion Gap 14 (12-20) BUN 9 (9-16) mg/dL Creatinine 0.74 (0.5-1.4) mg/dL Estim Creat Clear Calc 91.0 Estimated GFR > 60 Random Glucose 129 H (60-115) mg/dL Calcium 9.3 (8.4-10.2) mg/dL Magnesium 2.1 (1.6-2.6) mg/dL Total Bilirubin 0.7 (0.0-1.0) mg/dL Direct Bilirubin 0.3 (0.0-0.5) mg/dL AST 229 H (5-31) U/L ALT 294 H (0-31) U/L Alkaline Phosphatase 101 D (39-117) U/L Total Protein 7.4 (6.5-8.0) g/dL Albumin 4.4 (3.5-5.0) g/dL Urine Color Urine Appearance Urine pH (5.0-8.0) Ur Specific [place] (1.005-1.025) Urine Protein (NEG-TRACE) MG/DL Urine Glucose (UA) (NEG) MG/DL Urine Ketones (NEG) MG/DL Urine Blood (NEG) Urine Nitrite (NEG) Ur Leukocyte Esterase (NEG) Urine Test (NEGATIVE) Urine Opiates Screen (Not Detect) Urine Fentanyl Screen (Not Detect) Ur Barbiturates Screen (Not Detect) Ur Phencyclidine Scrn (Not Detect) Ur Amphetamines Screen (Not Detect) U Benzodiazepines Scrn (Not Detect) Urine Cocaine Screen (Not Detect) U Marijuana (THC) Screen (Not Detect) Ethyl Alcohol mg/dL COVID-19 (ALBA) Negative (Negative) COVID-19 Clin Com See Note S. pyogenes GrpA JASEN (Negative) 11/22/21 11/22/21 11/22/21 Range/Units 13:30 13:31 13:32 WBC (4.8-10.8) X10*3/uL RBC (4.20-5.50) X10*6/uL Hgb (12.0-16.0) g/dl Hct (37.0-47.0) % MCV (80.0-98.0) fL MCH (27.0-33.0) pg MCHC (31.0-35.0) g/dl RDW (11.0-16.0) % Plt Count (160-400) X10*3/uL MPV (9.4-12.3) fL Immature Gran % (Auto) (0.0-0.4) % Neut % (Auto) (45-73) % Lymph % (Auto) (20-40) % [place] % (Auto) (2-11) % Eos % (Auto) (0-4) % Baso % (Auto) (0-2) % Lymph # (Auto) (1.2-4.9) X10*3/uL [place] # (Auto) (0.1-1.2) X10*3/uL Eos # (Auto) (0.0-0.4) X10*3/uL Baso # (Auto) (0.0-0.2) X10*3/uL Abs Immat Gran (auto) (0.00-0.03) X10*3/uL Absolute Neuts (auto) (2.0-8.3) x10*3/uL Absolute Nucleated RBC (0.0-0.012) X10*3/uL Nucleated RBC % (auto) (0.0-0.2) /100WBC Sodium (135-145) mmol/L Potassium (3.3-5.1) mmol/L Chloride (96-108) mmol/L Carbon Dioxide (22-29) mmol/L Anion Gap (12-20) BUN (9-16) mg/dL Creatinine (0.5-1.4) mg/dL Estim Creat Clear Calc Estimated GFR Random Glucose (60-115) mg/dL Calcium (8.4-10.2) mg/dL Magnesium (1.6-2.6) mg/dL Total Bilirubin (0.0-1.0) mg/dL Direct Bilirubin (0.0-0.5) mg/dL AST (5-31) U/L ALT (0-31) U/L Alkaline Phosphatase (39-117) U/L Total Protein (6.5-8.0) g/dL Albumin (3.5-5.0) g/dL Urine Color YELLOW Urine Appearance CLEAR Urine pH 5.5 (5.0-8.0) Ur Specific [place] >= 1.030 H (1.005-1.025) Urine Protein NEG (NEG-TRACE) MG/DL Urine Glucose (UA) NEG (NEG) MG/DL Urine Ketones NEG (NEG) MG/DL Urine Blood NEG (NEG) Urine Nitrite NEG (NEG) Ur Leukocyte Esterase NEG (NEG) Urine Test NEGATIVE (NEGATIVE) Urine Opiates Screen (Not Detect) Urine Fentanyl Screen (Not Detect) Ur Barbiturates Screen (Not Detect) Ur Phencyclidine Scrn (Not Detect) Ur Amphetamines Screen (Not Detect) U Benzodiazepines Scrn (Not Detect) Urine Cocaine Screen (Not Detect) U Marijuana (THC) Screen (Not Detect) Ethyl Alcohol 40 mg/dL COVID-19 (ALBA) (Negative) COVID-19 Clin Com S. pyogenes GrpA JASEN (Negative) 11/22/21 11/22/21 Range/Units 13:32 15:07 WBC (4.8-10.8) X10*3/uL RBC (4.20-5.50) X10*6/uL Hgb (12.0-16.0) g/dl Hct (37.0-47.0) % MCV (80.0-98.0) fL MCH (27.0-33.0) pg MCHC (31.0-35.0) g/dl RDW (11.0-16.0) % Plt Count (160-400) X10*3/uL MPV (9.4-12.3) fL Immature Gran % (Auto) (0.0-0.4) % Neut % (Auto) (45-73) % Lymph % (Auto) (20-40) % [place] % (Auto) (2-11) % Eos % (Auto) (0-4) % Baso % (Auto) (0-2) % Lymph # (Auto) (1.2-4.9) X10*3/uL [place] # (Auto) (0.1-1.2) X10*3/uL Eos # (Auto) (0.0-0.4) X10*3/uL Baso # (Auto) (0.0-0.2) X10*3/uL Abs Immat Gran (auto) (0.00-0.03) X10*3/uL Absolute Neuts (auto) (2.0-8.3) x10*3/uL Absolute Nucleated RBC (0.0-0.012) X10*3/uL Nucleated RBC % (auto) (0.0-0.2) /100WBC Sodium (135-145) mmol/L Potassium (3.3-5.1) mmol/L Chloride (96-108) mmol/L Carbon Dioxide (22-29) mmol/L Anion Gap (12-20) BUN (9-16) mg/dL Creatinine (0.5-1.4) mg/dL Estim Creat Clear Calc Estimated GFR Random Glucose (60-115) mg/dL Calcium (8.4-10.2) mg/dL Magnesium (1.6-2.6) mg/dL Total Bilirubin (0.0-1.0) mg/dL Direct Bilirubin (0.0-0.5) mg/dL AST (5-31) U/L ALT (0-31) U/L Alkaline Phosphatase (39-117) U/L Total Protein (6.5-8.0) g/dL Albumin (3.5-5.0) g/dL Urine Color Urine Appearance Urine pH (5.0-8.0) Ur Specific [place] (1.005-1.025) Urine Protein (NEG-TRACE) MG/DL Urine Glucose (UA) (NEG) MG/DL Urine Ketones (NEG) MG/DL Urine Blood (NEG) Urine Nitrite (NEG) Ur Leukocyte Esterase (NEG) Urine Test (NEGATIVE) Urine Opiates Screen POSITIVE H (Not Detect) Urine Fentanyl Screen POSITIVE H (Not Detect) Ur Barbiturates Screen Not Detected (Not Detect) Ur Phencyclidine Scrn POSITIVE H (Not Detect) Ur Amphetamines Screen Not Detected (Not Detect) U Benzodiazepines Scrn Not Detected (Not Detect) Urine Cocaine Screen POSITIVE H (Not Detect) U Marijuana (THC) Screen Not Detected (Not Detect) Ethyl Alcohol mg/dL COVID-19 (ALBA) (Negative) COVID-19 Clin Com S. pyogenes GrpA JASEN Positive A (Negative) ECG Data Attestation: I personally reviewed and interpreted this ECG as follows: ECG interpretation date: 11/22/21 ECG interpretation time: 16:16 Interpretation: Normal sinus rhythm, heart rate 91 beats per minute, normal SD interval, no ST segment elevations or depressions Critical Care Time Critical Care Time Critical Care Time: Yes Total Critical Care Time: 36 Attestation: I have personally provided critical care time exclusive of time spent on separately billable procedures. Time includes review of lab data, radiology results, discussion with consultants/hospitalists, and monitoring for potential decompensation. Intervention performed as documented. Discharge Plan Discharge Clinical Impression: Polysubstance abuse, Suicidal ideation, Acute streptococcal pharyngitis Alcohol withdrawal Qualifiers: Complication of substance-induced condition: with unspecified complication Qualified Code(s): F10.239 - Alcohol dependence with withdrawal, unspecified Patient Disposition: Admitted As Inpatient
[2021-11-22] MEDS: cloNIDine HCL 0.1 MG TABLET PO (13:39)
[2021-11-22] MEDS: LORazepam 1 MG TABLET 2 MG PO (13:39)
[2021-11-22 13:41] LABS: MANUAL DIFF FLAG NO
[2021-11-22 13:43] LABS: Appearance Urine CLEAR; Color Urine YELLOW; Glucose Urine UA NEG (NEG); Leukocyte Esterase Urine NEG (NEG); Nitrite Urine NEG (NEG); PH 5.5 (5.0-8.0); Specific Gravity - Urine >= 1.030 (1.005-1.025); Urine Blood NEG (NEG); Urine Ketones NEG (NEG); Urine Protein NEG (NEG-TRACE)
[2021-11-22 13:44] LABS: UPreg QC Valid YES
[2021-11-22 13:44] LABS: Basophils Percent Auto 0.3 % (0-2); Eosinophils Absolute Auto 0.4 X10*3/uL (0.0-0.4); Eosinophils Percent Auto 3.1 % (0-4); Hematocrit 36.1 % (37.0-47.0); Hemoglobin 12.1 g/dl (12.0-16.0); Imm Gran Abs Auto 0.05 X10*3/uL (0.00-0.03); Imm Gran Pct Auto 0.4 % (0.0-0.4); Lymphocytes Absolute Auto 2.3 X10*3/uL (1.2-4.9); Lymphocytes Percent Auto 19.6 % (20-40); Mean Corpuscular HGB Conc 33.5 g/dl (31.0-35.0); Mean Corpuscular Hemoglobin 30.6 pg (27.0-33.0); Mean Corpuscular Volume 91.4 fL (80.0-98.0); Monocytes Absolute Auto 0.6 X10*3/uL (0.1-1.2); Monocytes Percent Auto 4.9 % (2-11); Neutrophils Absolute Auto 8.4 x10*3/uL (2.0-8.3); Neutrophils Percent Auto 71.7 % (45-73); Platelet Count 210 X10*3/uL (160-400); Red Blood Count 3.95 X10*6/uL (4.20-5.50); Red Cell Distribution Width 13.5 % (11.0-16.0); White Blood Count 11.7 X10*3/uL (4.8-10.8)
[2021-11-22 13:49] LABS: Urine Pregnancy NEGATIVE (NEGATIVE)
[2021-11-22 13:53] VITALS: BP 139/88; PULSE 109; RESP 18; TEMP 37.2; O2SAT 98
[2021-11-22 13:56] LABS: Ethanol 40 mg/dL
[2021-11-22 13:57] LABS: COVID-19 Test Negative (Negative)
[2021-11-22 14:00] VITALS: BP 139/67; PULSE 98; RESP 18; O2SAT 99
[2021-11-22 14:02] LABS: Amphetamine Screen Urine Not Detected (Not Detect); Barbiturates, Urine Not Detected (Not Detect); Benzodiazepines Screen Urine Not Detected (Not Detect); Cannabinoid Screen Urine Not Detected (Not Detect); Cocaine Screen Urine POSITIVE (Not Detect); Fentanyl, urine POSITIVE (Not Detect); Opiate Screen Urine POSITIVE (Not Detect); Phencyclidine Screen Urine POSITIVE (Not Detect)
[2021-11-22 14:03] LABS: Alanine Aminotransferase 294 U/L (0-31); Albumin Level 4.4 g/dL (3.5-5.0); Alkaline Phosphatase 101 U/L (39-117); Anion Gap 14 (12-20); Aspartate Amino Transferase 229 U/L (5-31); Bilirubin Direct 0.3 mg/dL (0.0-0.5); Bilirubin Total 0.7 mg/dL (0.0-1.0); Blood Urea Nitrogen 9 mg/dL (9-16); Calcium 9.3 mg/dL (8.4-10.2); Carbon Dioxide 20 mmol/L (22-29); Chloride 106 mmol/L (96-108); Estimated Glomerular Filt Rate > 60; Glucose Random 129 mg/dL (60-115); Magnesium 2.1 mg/dL (1.6-2.6); Potassium 3.5 mmol/L (3.3-5.1); Sodium 136 mmol/L (135-145); Total Protein 7.4 g/dL (6.5-8.0)
[2021-11-22] MEDS: 0.9 % Sodium Chloride 1,000 ML 999 ML IVCONT (14:28)
--- NOTE | 2021-11-22 14:28 | ECG_ITS ---
Test Reason : MED CLEARANCE Blood Pressure : / mmHG Vent. Rate : 091 BPM Atrial Rate : 091 BPM P-R Int : 144 ms QRS Dur : 074 ms QT Int : 370 ms P-R-T Axes : 065 066 038 degrees QTc Int : 455 ms Normal sinus rhythm Normal ECG No previous ECGs available Referred By: Josafat Mitchell Electronically Signed By:Jonny Jeffers
--- NOTE | 2021-11-22 14:45 | PC.NURSE ---
PROVIDER IS AWARE OF PATIENTS CWIA AND COW, PT IS ON MONITOR IVF RUNNING PO MEDS GIVEN. 1:1 AT BEDSIDE
[2021-11-22] MEDS: ondansetron HCL 4 MG/2 ML VIAL IVPUSH (14:51)
--- NOTE | 2021-11-22 15:04 | PHA.MEDREC ---
Pharmacy Consult ? Medication Reconciliation Pharmacy has completed the medication reconciliation. Pt states that the only medication that she is currently on is hydroxyzine 50mg tablets, and says she takes 4 to 5 tablets at one time with no effect for anxiety. Kerry Martines, [facility]
--- NOTE | 2021-11-22 15:07 | PC.NURSE ---
strep swab completed by this rn
[2021-11-22] MEDS: Throat Lozenge, Medicated LOZENGE 1 LOZENGE MUCOUS MEM (15:11)
[2021-11-22 15:20] LABS: IDNOW Serial# 9DD0AD1C; Strep A Nucleic Acid Positive (Negative)
[2021-11-22 16:00] VITALS: BP 129/68; PULSE 108; RESP 18; O2SAT 100
--- NOTE | 2021-11-22 16:25 | MHC.CARE ---
Please consult [facility] and CARE Team when pt is medically cleared for evaluation.
--- NOTE | 2021-11-22 16:40 | PC.NURSE ---
howpitlist currently with patient
[2021-11-22] MEDS: PHENobarbitaL sodium 130 MG/ML VIAL 251 MG IM (16:48)
--- NOTE | 2021-11-22 16:59 | PM.IMHP ---
History of Present Illness Date of Service: 11/22/21 Chief Complaint: alcohol withdrawal 31-year-old female with a history of hepatitis-C polysubstance abuse alcohol abuse presents to the ER with severe depression and episode of binge drinking and multiple drug abuse. States this has been happening over the last 2-3 months. She states advanced depression and is trying to kill herself by drugs and alcohol. When queried, she has been smoking crack and snorting cocaine and drinking at least a half a gal of vodka for the last 1-2 weeks.She states she has withdrawn before but never to this extent. At present, she is tremulous but no evidence of seizure activity. Intermittent diaphoresis and leg pain Review of Systems Review of Systems: denies fever chills Denies chest pain Denies shortness of breath Denies nausea vomiting diarrhea PMFSH Medical History Cocaine use Opiate abuse, continuous Smoker Surgical History S/P laparoscopic appendectomy Social History Household Members: Significant Other Housing: Apartment Do you presently have visiting nurse or other home services: Yes Alcohol intake: current Patient Tobacco Use Status: Current everyday Tobacco user Tobacco use type: Cigarette e-Cigarette/Vaping Use: Never Used Substance Use Type: Crack/Cocaine Advance Directives: No Advance Directives Information Provided: Yes Patient : No service: No Current occupational status: unemployed Meds Allergies Allergy/AdvReac Type Severity Reaction Status Date / Time No Known Allergies Allergy Verified 03/07/21 14:26 Active Medications: Current Medications Amoxicillin (Amoxicillin 500 Mg Capsule) 500 mg PO BID [facility] Medication (No Benzodiazepines) 1 each MISCELLANE DAILY [facility] Pharmacy Consult (Consult Rx Perform Med Rec) 1 each MISCELLANE ONCE PRN PRN Reason: Consult order Pharmacy Consult (Consult Rx Perform Med Rec) 1 each MISCELLANE ONCE PRN PRN Reason: Consult order Phenobarbital (Phenobarbital 15 Mg Tablet) 45 mg PO BID [facility] Stop: 11/24/21 21:01 Phenobarbital (Phenobarbital 15 Mg Tablet) 15 mg PO BID [facility] Stop: 11/26/21 21:01 Phenobarbital (Phenobarbital 15 Mg Tablet) 15 mg PO DAILY [facility] Stop: 11/28/21 09:01 Phenobarbital Sodium (Phenobarbital Sodium 130 Mg/Ml Vial) 251 mg IM ONCE@1700 [facility] Stop: 11/22/21 17:01 Last Admin: 11/22/21 16:48 Dose: 251 mg Documented by: Phenobarbital Sodium (Phenobarbital Sodium 130 Mg/Ml Vial) 188 mg IM 1999,2299 [facility] Stop: 11/22/21 23:01 Home Medications Medication Instructions Recorded Confirmed Last Taken Type hydroxyzine HCl 50 mg tablet 50 mg PO TID PRN 08/24/21 11/22/21 11/21/21 History Physical Exam Vital Signs and Narrative: Vital Signs: Last Vital Signs Temp 98.9 F 11/22/21 13:53 Pulse 108 H 11/22/21 16:00 Resp 18 11/22/21 16:00 BP 129/68 11/22/21 16:00 Pulse Ox 100 11/22/21 16:00 BMI result Body Mass Index 21.2 Const: Other: awake alert oriented x3; anxious HENMT: Other: pharynx clear; membranes moist Resp: Other: clear to auscultation bilaterally; no rales rhonchi or wheezes Cardio: Other: no S4; positive S1-S2; no S3 murmurs rubs or gallops GI: Other: soft nontender nondistended with normoactive bowel sounds Neuro: Other: cranial nerves 2-12 grossly intact as tested. motor 5/5 all extremities. Sensation intact. Cognition appropriate Extrem: Other: no edema bilateral Results Labs CBC and Chem 7: 11/22/21 13:30 11/22/21 13:30 Labs: Laboratory Results - last 24 hr 11/22/21 11/22/21 11/22/21 13:30 13:30 13:30 MCV 91.4 MCH 30.6 MCHC 33.5 RDW 13.5 Plt Count 210 MPV 10.0 Immature Gran % (Auto) 0.4 Neut % (Auto) 71.7 Lymph % (Auto) 19.6 L [place] % (Auto) 4.9 Eos % (Auto) 3.1 Baso % (Auto) 0.3 Lymph # (Auto) 2.3 [place] # (Auto) 0.6 Eos # (Auto) 0.4 Baso # (Auto) 0.0 Abs Immat Gran (auto) 0.05 H Absolute Neuts (auto) 8.4 H Absolute Nucleated RBC 0.000 Nucleated RBC % (auto) 0.0 Anion Gap 14 Estim Creat Clear Calc 91.0 Estimated GFR > 60 Random Glucose 129 H Calcium 9.3 Magnesium 2.1 Total Bilirubin 0.7 Direct Bilirubin 0.3 AST 229 H ALT 294 H Alkaline Phosphatase 101 D Total Protein 7.4 Albumin 4.4 Urine Color Urine Appearance Urine pH Ur Specific [place] Urine Protein Urine Glucose (UA) Urine Ketones Urine Blood Urine Nitrite Ur Leukocyte Esterase Urine Test Urine Opiates Screen Urine Fentanyl Screen Ur Barbiturates Screen Ur Phencyclidine Scrn Ur Amphetamines Screen U Benzodiazepines Scrn Urine Cocaine Screen U Marijuana (THC) Screen Ethyl Alcohol COVID-19 (ALBA) Negative COVID-19 Clin Com See Note S. pyogenes GrpA JASEN 11/22/21 11/22/21 11/22/21 13:30 13:31 13:32 MCV MCH MCHC RDW Plt Count MPV Immature Gran % (Auto) Neut % (Auto) Lymph % (Auto) [place] % (Auto) Eos % (Auto) Baso % (Auto) Lymph # (Auto) [place] # (Auto) Eos # (Auto) Baso # (Auto) Abs Immat Gran (auto) Absolute Neuts (auto) Absolute Nucleated RBC Nucleated RBC % (auto) Anion Gap Estim Creat Clear Calc Estimated GFR Random Glucose Calcium Magnesium Total Bilirubin Direct Bilirubin AST ALT Alkaline Phosphatase Total Protein Albumin Urine Color YELLOW Urine Appearance CLEAR Urine pH 5.5 Ur Specific [place] >= 1.030 H Urine Protein NEG Urine Glucose (UA) NEG Urine Ketones NEG Urine Blood NEG Urine Nitrite NEG Ur Leukocyte Esterase NEG Urine Test NEGATIVE Urine Opiates Screen Urine Fentanyl Screen Ur Barbiturates Screen Ur Phencyclidine Scrn Ur Amphetamines Screen U Benzodiazepines Scrn Urine Cocaine Screen U Marijuana (THC) Screen Ethyl Alcohol 40 COVID-19 (ALBA) COVID-19 Clin Com S. pyogenes GrpA JASEN 11/22/21 11/22/21 13:32 15:07 MCV MCH MCHC RDW Plt Count MPV Immature Gran % (Auto) Neut % (Auto) Lymph % (Auto) [place] % (Auto) Eos % (Auto) Baso % (Auto) Lymph # (Auto) [place] # (Auto) Eos # (Auto) Baso # (Auto) Abs Immat Gran (auto) Absolute Neuts (auto) Absolute Nucleated RBC Nucleated RBC % (auto) Anion Gap Estim Creat Clear Calc Estimated GFR Random Glucose Calcium Magnesium Total Bilirubin Direct Bilirubin AST ALT Alkaline Phosphatase Total Protein Albumin Urine Color Urine Appearance Urine pH Ur Specific [place] Urine Protein Urine Glucose (UA) Urine Ketones Urine Blood Urine Nitrite Ur Leukocyte Esterase Urine Test Urine Opiates Screen POSITIVE H Urine Fentanyl Screen POSITIVE H Ur Barbiturates Screen Not Detected Ur Phencyclidine Scrn POSITIVE H Ur Amphetamines Screen Not Detected U Benzodiazepines Scrn Not Detected Urine Cocaine Screen POSITIVE H U Marijuana (THC) Screen Not Detected Ethyl Alcohol COVID-19 (ALBA) COVID-19 Clin Com S. pyogenes GrpA JASEN Positive A Assessment and Plan (1) Polysubstance abuse: Status: Acute (2) Alcohol withdrawal: Qualifiers: Complication of substance-induced condition: with unspecified complication Qualified Code(s): F10.239 - Alcohol dependence with withdrawal, unspecified Status: Acute (3) History of hepatitis C: Status: Acute 31-year-old female with known history of polysubstance abuse and self admitted history of hep C presents after a prolonged alcohol binge drinking 1/2 gal of vodka a day. Presents today and early withdrawal 1.Alcohol withdraw Will place on CIWA / Phenobarb protocol. High risk for full withdraw. Ativan PRN 2.Hep C By Hx;Will draw Hep C AB with reflex Viral load. Can follow with Dr Corrigan if positive Lovenox/Full code Quality Stroke Does the patient have a stroke diagnosis?: No VTE Prior VTE?: No VTE Risk Level:: Medical - moderate - high VTE Device Contraindication: Treatment Not Indicated VTE Drug Contraindication: N/A - Med Ordered
--- NOTE | 2021-11-22 19:38 | PC.NURSE ---
This RN rec'd report from RICCARDO Carter at 1900. This RN did not see patient prior to giving report to RICCARDO Blanco on [facility]. Bella accepted report. Thelma GU aware that pt is to be transported to floor with Pranay as sitter.
[2021-11-22 20:13] VITALS: BP 119/59; PULSE 109; RESP 18; TEMP 35.9; O2SAT 99
[2021-11-22] MEDS: Enoxaparin Sodium 40 MG/0.4 ML SYRINGE SUBCUT (20:14)
[2021-11-22] MEDS: Amoxicillin 500 MG CAPSULE PO (20:15)
[2021-11-22] MEDS: PHENobarbitaL sodium 130 MG/ML VIAL 188 MG IM ×2 (20:16→23:53)
[2021-11-22] MEDS: 0.9 % Sodium Chloride Flush 3 ML SYRINGE IVFLUSH (23:57)
[2021-11-23] VITALS: BP 102/60; PULSE 76; RESP 20; TEMP 37; O2SAT 100
[2021-11-23 03:22] VITALS: BP 104/59; PULSE 79; RESP 18; TEMP 36.9; O2SAT 99
[2021-11-23 06:32] LABS: MANUAL DIFF FLAG NO
[2021-11-23 06:43] LABS: Basophils Absolute Auto 0.1 X10*3/uL (0.0-0.2); Basophils Percent Auto 0.7 % (0-2); Eosinophils Absolute Auto 0.9 X10*3/uL (0.0-0.4); Eosinophils Percent Auto 12.9 % (0-4); Hematocrit 34.3 % (37.0-47.0); Hemoglobin 11.6 g/dl (12.0-16.0); Imm Gran Abs Auto 0.01 X10*3/uL (0.00-0.03); Imm Gran Pct Auto 0.1 % (0.0-0.4); Lymphocytes Absolute Auto 2.2 X10*3/uL (1.2-4.9); Lymphocytes Percent Auto 31.7 % (20-40); Mean Corpuscular HGB Conc 33.8 g/dl (31.0-35.0); Mean Corpuscular Hemoglobin 30.7 pg (27.0-33.0); Mean Corpuscular Volume 90.7 fL (80.0-98.0); Mean Platelet Volume 9.8 fL (9.4-12.3); Monocytes Absolute Auto 0.4 X10*3/uL (0.1-1.2); Monocytes Percent Auto 6.1 % (2-11); Neutrophils Absolute Auto 3.3 x10*3/uL (2.0-8.3); Neutrophils Percent Auto 48.5 % (45-73); Platelet Count 188 X10*3/uL (160-400); Red Blood Count 3.78 X10*6/uL (4.20-5.50); Red Cell Distribution Width 13.6 % (11.0-16.0); White Blood Count 6.9 X10*3/uL (4.8-10.8)
[2021-11-23 07:09] VITALS: BP 104/52; PULSE 89; RESP 20; TEMP 36.7; O2SAT 99
[2021-11-23 07:12] LABS: Alanine Aminotransferase 294 U/L (0-31); Albumin Level 3.6 g/dL (3.5-5.0); Alkaline Phosphatase 95 U/L (39-117); Anion Gap 9 (12-20); Aspartate Amino Transferase 222 U/L (5-31); Blood Urea Nitrogen 14 mg/dL (9-16); Carbon Dioxide 25 mmol/L (22-29); Chloride 106 mmol/L (96-108); Creatinine Clr Calc Pharmacy 93.6; Estimated Glomerular Filt Rate > 60; Glucose Fasting 89 mg/dL (60-99); Potassium 4.1 mmol/L (3.3-5.1); Sodium 136 mmol/L (135-145); Total Protein 6.3 g/dL (6.5-8.0)
[2021-11-23] MEDS: PHENobarbitaL 15 MG TABLET 45 MG PO ×2 (08:00→20:02)
[2021-11-23] MEDS: Amoxicillin 500 MG CAPSULE PO ×2 (08:00→20:02)
[2021-11-23] MEDS: 0.9 % Sodium Chloride Flush 3 ML SYRINGE IVFLUSH ×3 (08:01→23:55)
[2021-11-23] MEDS: Ibuprofen 400 MG TABLET PO (08:01)
[2021-11-23 08:12] LABS: ~HepC Num1 15.57 S/CO (0.00-0.79); ~Hepatitis C Antibody Reactive (Nonreactive)
[2021-11-23 12:00] VITALS: BP 115/61; PULSE 83; RESP 18; TEMP 37.3; O2SAT 99
--- NOTE | 2021-11-23 12:28 | HO.PM.IMPN ---
Subjective Subjective Date of Service: 11/23/21 Interval History: the patient was seen and evaluated this morning Laying in bed, feels Little anxious and complaining of dyspnea irritable, diaphoretic Denies any fever, chills or chest pain No reported other overnight events. Systemic review: No fever, chills but generalized weakness No chest pain, palpitation No shortness of breath or coughing No abdominal pain, and mild nausea No urinary symptoms No any rash or wounds Physical Exam Vital Signs: Vital Signs: Last Vital Signs Temp 99.1 F 11/23/21 12:00 Pulse 83 11/23/21 12:00 Resp 18 11/23/21 12:00 BP 115/61 11/23/21 12:00 Pulse Ox 99 11/23/21 12:00 BMI result Body Mass Index 21.2 Const: Other: Constitutional : Alert, oriented, not in distress Neck : Normal inspection, Supple Cardiovascular : RRR, S1 S2, no lower extremity edema Respiratory : Good bilateral air entry, no crackles, wheezes or rhonchi Gastrointestinal: soft, lax, Normal bowel sounds, Non tender Skin : Warm, Dry Neurological : Alert & oriented x3, No focal deficit Objective Data Active Medications Amoxicillin (Amoxicillin 500 Mg Capsule) 500 mg PO BID [facility] Last Admin: 11/23/21 08:00 Dose: 500 mg Documented by: SARA Enoxaparin Sodium (Enoxaparin Sodium 40 Mg/0.4 Ml Syringe) 40 mg SUBCUT Q24H [facility] Last Admin: 11/22/21 20:14 Dose: 40 mg Documented by: ANTHONY Ibuprofen (Ibuprofen 400 Mg Tablet) 400 mg PO Q6H PRN PRN Reason: Fever or Pain, Mild (Pain Scale 1-3) Last Admin: 11/23/21 08:01 Dose: 400 mg Documented by: SARA Medication (No Benzodiazepines) 1 each MISCELLANE DAILY [facility] Ondansetron HCl (Ondansetron Hcl 4 Mg/2 Ml Vial) 4 mg IVPUSH Q8H PRN PRN Reason: Nausea and Vomiting Pharmacy Consult (Consult Rx Perform Med Rec) 1 each MISCELLANE ONCE PRN PRN Reason: Consult order Pharmacy Consult (Consult Rx Perform Med Rec) 1 each MISCELLANE ONCE PRN PRN Reason: Consult order Phenobarbital (Phenobarbital 15 Mg Tablet) 45 mg PO BID [facility] Stop: 11/24/21 21:01 Last Admin: 11/23/21 08:00 Dose: 45 mg Documented by: SARA Phenobarbital (Phenobarbital 15 Mg Tablet) 15 mg PO BID [facility] Stop: 11/26/21 21:01 Phenobarbital (Phenobarbital 15 Mg Tablet) 15 mg PO DAILY [facility] Stop: 11/28/21 09:01 Sodium Chloride (0.9 % Sodium Chloride Flush 3 Ml Syringe) 3 ml IVFLUSH QSHIFT [facility] Last Admin: 11/23/21 08:01 Dose: 3 ml Documented by: SARA Labs CBC & Chem 7: 11/23/21 06:26 11/23/21 06:26 Labs: Laboratory Results - last 24 hr 11/22/21 11/22/21 11/22/21 13:30 13:30 13:30 MCV 91.4 MCH 30.6 MCHC 33.5 RDW 13.5 Plt Count 210 MPV 10.0 Immature Gran % (Auto) 0.4 Neut % (Auto) 71.7 Lymph % (Auto) 19.6 L [place] % (Auto) 4.9 Eos % (Auto) 3.1 Baso % (Auto) 0.3 Lymph # (Auto) 2.3 [place] # (Auto) 0.6 Eos # (Auto) 0.4 Baso # (Auto) 0.0 Abs Immat Gran (auto) 0.05 H Absolute Neuts (auto) 8.4 H Absolute Nucleated RBC 0.000 Nucleated RBC % (auto) 0.0 Anion Gap 14 Estim Creat Clear Calc 91.0 Estimated GFR > 60 Random Glucose 129 H Fasting Glucose Calcium 9.3 Magnesium 2.1 Total Bilirubin 0.7 Direct Bilirubin 0.3 AST 229 H ALT 294 H Alkaline Phosphatase 101 D Total Protein 7.4 Albumin 4.4 Urine Color Urine Appearance Urine pH Ur Specific [place] Urine Protein Urine Glucose (UA) Urine Ketones Urine Blood Urine Nitrite Ur Leukocyte Esterase Urine Test Urine Opiates Screen Urine Fentanyl Screen Ur Barbiturates Screen Ur Phencyclidine Scrn Ur Amphetamines Screen U Benzodiazepines Scrn Urine Cocaine Screen U Marijuana (THC) Screen Ethyl Alcohol COVID-19 (ALBA) Negative COVID-19 Clin Com See Note Hepatitis C Ab (EIA) S. pyogenes GrpA JASEN 11/22/21 11/22/21 11/22/21 13:30 13:31 13:32 MCV MCH MCHC RDW Plt Count MPV Immature Gran % (Auto) Neut % (Auto) Lymph % (Auto) [place] % (Auto) Eos % (Auto) Baso % (Auto) Lymph # (Auto) [place] # (Auto) Eos # (Auto) Baso # (Auto) Abs Immat Gran (auto) Absolute Neuts (auto) Absolute Nucleated RBC Nucleated RBC % (auto) Anion Gap Estim Creat Clear Calc Estimated GFR Random Glucose Fasting Glucose Calcium Magnesium Total Bilirubin Direct Bilirubin AST ALT Alkaline Phosphatase Total Protein Albumin Urine Color YELLOW Urine Appearance CLEAR Urine pH 5.5 Ur Specific [place] >= 1.030 H Urine Protein NEG Urine Glucose (UA) NEG Urine Ketones NEG Urine Blood NEG Urine Nitrite NEG Ur Leukocyte Esterase NEG Urine Test NEGATIVE Urine Opiates Screen Urine Fentanyl Screen Ur Barbiturates Screen Ur Phencyclidine Scrn Ur Amphetamines Screen U Benzodiazepines Scrn Urine Cocaine Screen U Marijuana (THC) Screen Ethyl Alcohol 40 COVID-19 (ALBA) COVID-19 Clin Com Hepatitis C Ab (EIA) S. pyogenes GrpA JASEN 11/22/21 11/22/21 11/23/21 13:32 15:07 06:26 MCV 90.7 MCH 30.7 MCHC 33.8 RDW 13.6 Plt Count 188 MPV 9.8 Immature Gran % (Auto) 0.1 Neut % (Auto) 48.5 Lymph % (Auto) 31.7 [place] % (Auto) 6.1 Eos % (Auto) 12.9 H Baso % (Auto) 0.7 Lymph # (Auto) 2.2 [place] # (Auto) 0.4 Eos # (Auto) 0.9 H Baso # (Auto) 0.1 Abs Immat Gran (auto) 0.01 Absolute Neuts (auto) 3.3 Absolute Nucleated RBC 0.000 Nucleated RBC % (auto) 0.0 Anion Gap Estim Creat Clear Calc Estimated GFR Random Glucose Fasting Glucose Calcium Magnesium Total Bilirubin Direct Bilirubin AST ALT Alkaline Phosphatase Total Protein Albumin Urine Color Urine Appearance Urine pH Ur Specific [place] Urine Protein Urine Glucose (UA) Urine Ketones Urine Blood Urine Nitrite Ur Leukocyte Esterase Urine Test Urine Opiates Screen POSITIVE H Urine Fentanyl Screen POSITIVE H Ur Barbiturates Screen Not Detected Ur Phencyclidine Scrn POSITIVE H Ur Amphetamines Screen Not Detected U Benzodiazepines Scrn Not Detected Urine Cocaine Screen POSITIVE H U Marijuana (THC) Screen Not Detected Ethyl Alcohol COVID-19 (ALBA) COVID-19 Clin Com Hepatitis C Ab (EIA) S. pyogenes GrpA JASEN Positive A 11/23/21 11/23/21 06:26 06:26 MCV MCH MCHC RDW Plt Count MPV Immature Gran % (Auto) Neut % (Auto) Lymph % (Auto) [place] % (Auto) Eos % (Auto) Baso % (Auto) Lymph # (Auto) [place] # (Auto) Eos # (Auto) Baso # (Auto) Abs Immat Gran (auto) Absolute Neuts (auto) Absolute Nucleated RBC Nucleated RBC % (auto) Anion Gap 9 L Estim Creat Clear Calc 93.6 Estimated GFR > 60 Random Glucose Fasting Glucose 89 Calcium 9.0 Magnesium Total Bilirubin 1.0 Direct Bilirubin AST 222 H ALT 294 H Alkaline Phosphatase 95 Total Protein 6.3 L Albumin 3.6 Urine Color Urine Appearance Urine pH Ur Specific [place] Urine Protein Urine Glucose (UA) Urine Ketones Urine Blood Urine Nitrite Ur Leukocyte Esterase Urine Test Urine Opiates Screen Urine Fentanyl Screen Ur Barbiturates Screen Ur Phencyclidine Scrn Ur Amphetamines Screen U Benzodiazepines Scrn Urine Cocaine Screen U Marijuana (THC) Screen Ethyl Alcohol COVID-19 (ALBA) COVID-19 Clin Com Hepatitis C Ab (EIA) Reactive H S. pyogenes GrpA JASEN Assessment and Plan (1) Polysubstance abuse: Status: Acute (2) Suicidal ideation: Status: Acute (3) Alcohol withdrawal: Status: Acute (4) Cocaine use: Status: Acute Assessment and Plan: 31-year-old female with known history of polysubstance abuse and self admitted history of hep C presents after a prolonged alcohol binge drinking 1/2 gal of vodka a day. Presents today and early withdrawal Alcohol withdraw continue Phenobarb protocol, add an extra dose High risk for full withdraw. Ativan PRN Drug abuse Risk of cocaine withdrawal To get addiction team evaluation Hep C Pending Hep C AB with reflex Viral load. Can follow with Dr Corrigan as outpatient suicidal ideation Reported she was drinking and taking drugs who being that she might Has a sitter in the room To get care team evaluation DVT PPX Lovenox/Full code Quality Stroke Does the patient have a stroke diagnosis?: No VTE Prior VTE?: No VTE Risk Level:: Medical - moderate - high VTE Device Contraindication: Treatment Not Indicated VTE Drug Contraindication: N/A - Med Ordered
[2021-11-23] MEDS: PHENobarbitaL sodium 130 MG/ML VIAL IM (12:42)
[2021-11-23] MEDS: hydrOXYzine HCL 50 MG TABLET PO ×2 (13:42→20:05)
--- NOTE | 2021-11-23 14:48 | MHC.CM.PN ---
CM ATTEMPTED TO SEE PT WHO WAS SLEEPING. CM DID NOT CALL HCP RECORDS INDICATE PT IS ALERT AND ORIENTED CM TO REVISIT
[2021-11-23 16:00] VITALS: BP 91/55; PULSE 83; RESP 16; TEMP 36.6; O2SAT 100
[2021-11-23] MEDS: Enoxaparin Sodium 40 MG/0.4 ML SYRINGE SUBCUT (17:49)
[2021-11-23 19:58] VITALS: BP 96/54; PULSE 86; RESP 16; TEMP 36.3; O2SAT 99
[2021-11-24] VITALS: BP 100/55; PULSE 80; RESP 20; TEMP 36.8; O2SAT 99
--- NOTE | 2021-11-24 | ECG_ITS ---
Test Reason : Evaluation for cocaine abuse Blood Pressure : / mmHG Vent. Rate : 093 BPM Atrial Rate : 093 BPM P-R Int : 146 ms QRS Dur : 074 ms QT Int : 356 ms P-R-T Axes : 062 066 045 degrees QTc Int : 442 ms Normal sinus rhythm Normal ECG No previous ECGs available Referred By: Josafat Mitchell Electronically Signed By:TALYA KAN
[2021-11-24] MEDS: hydrOXYzine HCL 50 MG TABLET PO ×2 (02:05→08:10)
[2021-11-24 03:55] VITALS: BP 125/59; PULSE 76; RESP 18; TEMP 36.8; O2SAT 99
[2021-11-24 07:56] VITALS: BP 112/61; PULSE 88; RESP 20; TEMP 37; O2SAT 99
[2021-11-24] MEDS: 0.9 % Sodium Chloride Flush 3 ML SYRINGE IVFLUSH ×2 (08:10→15:56)
[2021-11-24] MEDS: PHENobarbitaL 15 MG TABLET 45 MG PO (08:10)
[2021-11-24] MEDS: Amoxicillin 500 MG CAPSULE PO (08:10)
--- NOTE | 2021-11-24 08:10 | MHC.CM.PN ---
Patient may benefit from Inpatient Psych and Care Team intervention r/t ETOH, Polysubstance Abuse, Severe Depression and SI.Patient lives with S.O. and CM will follow for dc planning.
[2021-11-24 08:18] LABS: MANUAL DIFF FLAG NO
[2021-11-24 08:20] LABS: Basophils Percent Auto 0.7 % (0-2); Eosinophils Absolute Auto 0.5 X10*3/uL (0.0-0.4); Eosinophils Percent Auto 8.9 % (0-4); Hematocrit 35.6 % (37.0-47.0); Hemoglobin 11.9 g/dl (12.0-16.0); Imm Gran Abs Auto 0.02 X10*3/uL (0.00-0.03); Imm Gran Pct Auto 0.3 % (0.0-0.4); Lymphocytes Absolute Auto 2.2 X10*3/uL (1.2-4.9); Lymphocytes Percent Auto 37.7 % (20-40); Mean Corpuscular HGB Conc 33.4 g/dl (31.0-35.0); Mean Corpuscular Hemoglobin 30.9 pg (27.0-33.0); Mean Corpuscular Volume 92.5 fL (80.0-98.0); Mean Platelet Volume 10.4 fL (9.4-12.3); Monocytes Absolute Auto 0.3 X10*3/uL (0.1-1.2); Monocytes Percent Auto 5.7 % (2-11); Neutrophils Absolute Auto 2.7 x10*3/uL (2.0-8.3); Neutrophils Percent Auto 46.7 % (45-73); Platelet Count 217 X10*3/uL (160-400); Red Blood Count 3.85 X10*6/uL (4.20-5.50); Red Cell Distribution Width 13.5 % (11.0-16.0); White Blood Count 5.8 X10*3/uL (4.8-10.8)
[2021-11-24 08:40] LABS: Anion Gap 10 (12-20); Blood Urea Nitrogen 14 mg/dL (9-16); Calcium 9.1 mg/dL (8.4-10.2); Carbon Dioxide 23 mmol/L (22-29); Chloride 106 mmol/L (96-108); Creatinine Clr Calc Pharmacy 96.3; Estimated Glomerular Filt Rate > 60; Glucose Random 100 mg/dL (60-115); Potassium 4.2 mmol/L (3.3-5.1); Sodium 135 mmol/L (135-145)
[2021-11-24 08:42] LABS: Alanine Aminotransferase 263 U/L (0-31); Albumin Level 3.9 g/dL (3.5-5.0); Alkaline Phosphatase 131 U/L (39-117); Anion Gap 9 (12-20); Aspartate Amino Transferase 146 U/L (5-31); Bilirubin Total 0.4 mg/dL (0.0-1.0); Blood Urea Nitrogen 13 mg/dL (9-16); Calcium 9.1 mg/dL (8.4-10.2); Carbon Dioxide 23 mmol/L (22-29); Chloride 106 mmol/L (96-108); Creatinine Clr Calc Pharmacy 93.6; Estimated Glomerular Filt Rate > 60; Glucose Fasting 101 mg/dL (60-99); Potassium 4.2 mmol/L (3.3-5.1); Sodium 134 mmol/L (135-145); Total Protein 6.6 g/dL (6.5-8.0)
[2021-11-24] MEDS: PHENobarbitaL sodium 130 MG/ML VIAL IM ×2 (09:24→14:43)
[2021-11-24] MEDS: cloNIDine HCL 0.1 MG TABLET PO (10:28)
--- NOTE | 2021-11-24 10:49 | P.PNIM_ITS ---
Subjective Subjective Date of Service: 11/24/21 Interval History: the patient was seen and evaluated this morning Laying in bed, feels better today but still anxious denies being suicidal S she is asking if she can go home who mildly irritable and diaphoretic No reported other overnight events. Systemic review: No fever, chills but generalized weakness No chest pain, palpitation No shortness of breath or coughing No abdominal pain, and mild nausea No urinary symptoms No any rash or wounds Physical Exam Vital Signs: Vital Signs: Last Vital Signs Temp 98.6 F 11/24/21 07:56 Pulse 88 11/24/21 07:56 Resp 20 11/24/21 07:56 BP 112/61 11/24/21 07:56 Pulse Ox 99 11/24/21 07:56 BMI result Body Mass Index 21.2 Const: Other: Constitutional : Alert, oriented, mildly irritable,not in distress Neck : Normal inspection, Supple Cardiovascular : RRR, S1 S2, no lower extremity edema Respiratory : Good bilateral air entry, no crackles, wheezes or rhonchi Gastrointestinal: soft, lax, Normal bowel sounds, Non tender Skin : Warm, Dry Neurological : Alert & oriented x3, No focal deficit Objective Data Active Medications Amoxicillin (Amoxicillin 500 Mg Capsule) 500 mg PO BID [facility] Last Admin: 11/24/21 08:10 Dose: 500 mg Documented by: NICCI Clonidine HCl (Clonidine Hcl 0.1 Mg Tablet) 0.1 mg PO TID PRN; Protocol PRN Reason: anxiety/restlessness Last Admin: 11/24/21 10:28 Dose: 0.1 mg Documented by: NICCI Enoxaparin Sodium (Enoxaparin Sodium 40 Mg/0.4 Ml Syringe) 40 mg SUBCUT Q24H [facility] Last Admin: 11/23/21 17:49 Dose: 40 mg Documented by: ELIZABETH Hydroxyzine HCl (Hydroxyzine Hcl 50 Mg Tablet) 50 mg PO Q6H PRN PRN Reason: anxiety/restlessness Last Admin: 11/24/21 08:10 Dose: 50 mg Documented by: NICCI Ibuprofen (Ibuprofen 400 Mg Tablet) 400 mg PO Q6H PRN PRN Reason: Fever or Pain, Mild (Pain Scale 1-3) Last Admin: 11/23/21 08:01 Dose: 400 mg Documented by: SARA Medication (No Benzodiazepines) 1 each MISCELLANE DAILY [facility] Nicotine (Nicotine 14 Mg Patch.Td24) 14 mg TRANSDERMA DAILY [facility] Ondansetron HCl (Ondansetron Hcl 4 Mg/2 Ml Vial) 4 mg IVPUSH Q8H PRN PRN Reason: Nausea and Vomiting Pharmacy Consult (Consult Rx Perform Med Rec) 1 each MISCELLANE ONCE PRN PRN Reason: Consult order Pharmacy Consult (Consult Rx Perform Med Rec) 1 each MISCELLANE ONCE PRN PRN Reason: Consult order Phenobarbital (Phenobarbital 15 Mg Tablet) 45 mg PO BID [facility] Stop: 11/24/21 21:01 Last Admin: 11/24/21 08:10 Dose: 45 mg Documented by: NICCI Phenobarbital (Phenobarbital 15 Mg Tablet) 15 mg PO BID [facility] Stop: 11/26/21 21:01 Phenobarbital (Phenobarbital 15 Mg Tablet) 15 mg PO DAILY [facility] Stop: 11/28/21 09:01 Phenobarbital Sodium (Phenobarbital Sodium 130 Mg/Ml Vial) 130 mg IM ONCE PRN PRN Reason: Alcohol Withdrawal Last Admin: 11/24/21 09:24 Dose: 130 mg Documented by: NICCI Sodium Chloride (0.9 % Sodium Chloride Flush 3 Ml Syringe) 3 ml IVFLUSH QSHIFT [facility] Last Admin: 11/24/21 08:10 Dose: 3 ml Documented by: NICCI Labs CBC & Chem 7: 11/24/21 07:15 11/24/21 07:15 Labs: Laboratory Results - last 24 hr 11/24/21 11/24/21 11/24/21 07:15 07:15 07:15 MCV 92.5 MCH 30.9 MCHC 33.4 RDW 13.5 Plt Count 217 MPV 10.4 Immature Gran % (Auto) 0.3 Neut % (Auto) 46.7 Lymph % (Auto) 37.7 [place] % (Auto) 5.7 Eos % (Auto) 8.9 H Baso % (Auto) 0.7 Lymph # (Auto) 2.2 [place] # (Auto) 0.3 Eos # (Auto) 0.5 H Baso # (Auto) 0.0 Abs Immat Gran (auto) 0.02 Absolute Neuts (auto) 2.7 Absolute Nucleated RBC 0.000 Nucleated RBC % (auto) 0.0 Anion Gap 9 L 10 L Estim Creat Clear Calc 93.6 96.3 Estimated GFR > 60 > 60 Random Glucose 100 Fasting Glucose 101 H Calcium 9.1 9.1 Total Bilirubin 0.4 AST 146 H ALT 263 H Alkaline Phosphatase 131 H D Total Protein 6.6 Albumin 3.9 Assessment and Plan (1) Polysubstance abuse: Status: Acute (2) Suicidal ideation: Status: Acute (3) Alcohol withdrawal: Status: Acute Assessment and Plan: 31-year-old female with known history of polysubstance abuse and self admitted history of hep C presents after a prolonged alcohol binge drinking 1/2 gal of vodka a day. Presents today and early withdrawal Alcohol withdrawal continue Phenobarb protocol, add an extra doseToday advised complete abstinence from alcohol Ativan PRN Drug abuse Risk of cocaine withdrawal clonidine p.r.n., Atarax IM To get addiction team evaluation Hep C Positive Hep C AB with reflex Viral load. Can follow with Dr Corrigan as outpatient suicidal ideation Reported she was drinking and taking drugs who being that she might Has a sitter in the room N will take the patient inpatient psych, patient sectioned Strep throat continue amoxicillin DVT PPX Lovenox/Full code Quality Stroke Does the patient have a stroke diagnosis?: No VTE Prior VTE?: No VTE Risk Level:: Medical - moderate - high VTE Device Contraindication: Treatment Not Indicated VTE Drug Contraindication: N/A - Med Ordered
[2021-11-24] MEDS: Nicotine 14 MG PATCH.TD24 TRANSDERMA (10:59)
[2021-11-24 11:35] VITALS: BP 115/58; PULSE 99; RESP 18; TEMP 37.2; O2SAT 100
--- NOTE | 2021-11-24 12:26 | HO.ADDICTCON ---
History of Present Illness Date of Service: 11/24/2021 Chief Complaint: alcohol withdraw Reason for Consult: Substance Use disorder eval and treatment Requesting physician: Josafat Mitchell Discussed with referring provider: Yes Sources of Information: patient interviewed and chart reviewed HPI Narrative: Patient is a 31 year old female with polysubstance use currently medically admitted to treat alcohol withdrawal. Consult requested to eval and treat SARBJIT Patient seen in room 444. Irritable most of the interview, expressing anger that she is going to be psychiatrically admitted. Stating that she did not mean anything she was saying. Avised patient of this writers role, and she became a bit more engaged and agreeable. Reporting substance use since the age of 14. Denies any significiant periods of recovery Multiple ATS admissions for both ETOH and opioids Denies any outpatient SARBJIT treatment--including buprenorphine and suboxone Never trialed any medications for alcohol use disorder Reports she is currently using approximately 3 bundles of heroin QD IN Reports using 3-4 grams if cocaine IN and inhalation Denies any recent IVDU, though does acknowledge history of IVDU Daily alcohol use Denies PCP use ( UDS +) Reports strong family history of addiciton--both parents and several family members Currently living with her boyfriend, has one child that is not in her custody Reports one previous psychiatric admission for suicidal ideation in the context of relationship issues Discussed treatment options for OUD and AUD, patient verbalizing interest in starting buprenorphine. Last use reported as being prior to admission on 11/22. Reporting irritability, restlessness, chills and diaphoresis. Review of Systems Constitutional: Reports as per HPI, Reports body ache(s), Reports chills, Reports excessive sweating and Reports malaise Endocrine: Reports excessive sweating Diagnostics Vital Signs (24Hr): Vital Signs - 24 hr 11/23/21 16:00 11/23/21 19:58 11/24/21 00:00 Temperature 98 F 97.3 F 98.2 F Pulse Rate 83 86 80 Respiratory Rate 16 16 20 Blood Pressure 91/55 L 96/54 L 100/55 L Pulse Oximetry 100 99 99 11/24/21 03:55 11/24/21 07:56 11/24/21 11:35 Temperature 98.2 F 98.6 F 99.0 F Pulse Rate 76 88 99 Respiratory Rate 18 20 18 Blood Pressure 125/59 L 112/61 115/58 L Pulse Oximetry 99 99 100 BMI result Body Mass Index 21.2 Labs Results: 11/24/21 07:15 11/24/21 07:15 Labs: Laboratory Results - last 48 hr 11/22/21 11/22/21 11/22/21 13:30 13:30 13:30 WBC 11.7 H RBC 3.95 L Hgb 12.1 Hct 36.1 L MCV 91.4 MCH 30.6 MCHC 33.5 RDW 13.5 Plt Count 210 MPV 10.0 Immature Gran % (Auto) 0.4 Neut % (Auto) 71.7 Lymph % (Auto) 19.6 L [place] % (Auto) 4.9 Eos % (Auto) 3.1 Baso % (Auto) 0.3 Lymph # (Auto) 2.3 [place] # (Auto) 0.6 Eos # (Auto) 0.4 Baso # (Auto) 0.0 Abs Immat Gran (auto) 0.05 H Absolute Neuts (auto) 8.4 H Absolute Nucleated RBC 0.000 Nucleated RBC % (auto) 0.0 Sodium 136 Potassium 3.5 Chloride 106 Carbon Dioxide 20 L Anion Gap 14 BUN 9 Creatinine 0.74 Estim Creat Clear Calc 91.0 Estimated GFR > 60 Random Glucose 129 H Fasting Glucose Calcium 9.3 Magnesium 2.1 Total Bilirubin 0.7 Direct Bilirubin 0.3 AST 229 H ALT 294 H Alkaline Phosphatase 101 D Total Protein 7.4 Albumin 4.4 Urine Color Urine Appearance Urine pH Ur Specific Mcgee Urine Protein Urine Glucose (UA) Urine Ketones Urine Blood Urine Nitrite Ur Leukocyte Esterase Urine Test Urine Opiates Screen Urine Fentanyl Screen Ur Barbiturates Screen Ur Phencyclidine Scrn Ur Amphetamines Screen U Benzodiazepines Scrn Urine Cocaine Screen U Marijuana (THC) Screen Ethyl Alcohol COVID-19 (ALBA) Negative COVID-19 Clin Com See Note Hepatitis C Ab (EIA) S. pyogenes GrpA JASEN 11/22/21 11/22/21 11/22/21 13:30 13:31 13:32 WBC RBC Hgb Hct MCV MCH MCHC RDW Plt Count MPV Immature Gran % (Auto) Neut % (Auto) Lymph % (Auto) [place] % (Auto) Eos % (Auto) Baso % (Auto) Lymph # (Auto) [place]man # (Auto) Eos # (Auto) Baso # (Auto) Abs Immat Gran (auto) Absolute Neuts (auto) Absolute Nucleated RBC Nucleated RBC % (auto) Sodium Potassium Chloride Carbon Dioxide Anion Gap BUN Creatinine Estim Creat Clear Calc Estimated GFR Random Glucose Fasting Glucose Calcium Magnesium Total Bilirubin Direct Bilirubin AST ALT Alkaline Phosphatase Total Protein Albumin Urine Color YELLOW Urine Appearance CLEAR Urine pH 5.5 Ur Specific Mcgee >= 1.030 H Urine Protein NEG Urine Glucose (UA) NEG Urine Ketones NEG Urine Blood NEG Urine Nitrite NEG Ur Leukocyte Esterase NEG Urine Test NEGATIVE Urine Opiates Screen Urine Fentanyl Screen Ur Barbiturates Screen Ur Phencyclidine Scrn Ur Amphetamines Screen U Benzodiazepines Scrn Urine Cocaine Screen U Marijuana (THC) Screen Ethyl Alcohol 40 COVID-19 (ALBA) COVID-19 Clin Com Hepatitis C Ab (EIA) S. pyogenes GrpA JASEN 11/22/21 11/22/21 11/23/21 13:32 15:07 06:26 WBC 6.9 RBC 3.78 L Hgb 11.6 L Hct 34.3 L MCV 90.7 MCH 30.7 MCHC 33.8 RDW 13.6 Plt Count 188 MPV 9.8 Immature Gran % (Auto) 0.1 Neut % (Auto) 48.5 Lymph % (Auto) 31.7 [place]aufman % (Auto) 6.1 Eos % (Auto) 12.9 H Baso % (Auto) 0.7 Lymph # (Auto) 2.2 [place]man # (Auto) 0.4 Eos # (Auto) 0.9 H Baso # (Auto) 0.1 Abs Immat Gran (auto) 0.01 Absolute Neuts (auto) 3.3 Absolute Nucleated RBC 0.000 Nucleated RBC % (auto) 0.0 Sodium Potassium Chloride Carbon Dioxide Anion Gap BUN Creatinine Estim Creat Clear Calc Estimated GFR Random Glucose Fasting Glucose Calcium Magnesium Total Bilirubin Direct Bilirubin AST ALT Alkaline Phosphatase Total Protein Albumin Urine Color Urine Appearance Urine pH Ur Specific Mcgee Urine Protein Urine Glucose (UA) Urine Ketones Urine Blood Urine Nitrite Ur Leukocyte Esterase Urine Test Urine Opiates Screen POSITIVE H Urine Fentanyl Screen POSITIVE H Ur Barbiturates Screen Not Detected Ur Phencyclidine Scrn POSITIVE H Ur Amphetamines Screen Not Detected U Benzodiazepines Scrn Not Detected Urine Cocaine Screen POSITIVE H U Marijuana (THC) Screen Not Detected Ethyl Alcohol COVID-19 (ALBA) COVID-19 Clin Com Hepatitis C Ab (EIA) S. pyogenes GrpA JASEN Positive A 11/23/21 11/23/21 11/24/21 06:26 06:26 07:15 WBC 5.8 RBC 3.85 L Hgb 11.9 L Hct 35.6 L MCV 92.5 MCH 30.9 MCHC 33.4 RDW 13.5 Plt Count 217 MPV 10.4 Immature Gran % (Auto) 0.3 Neut % (Auto) 46.7 Lymph % (Auto) 37.7 [place] % (Auto) 5.7 Eos % (Auto) 8.9 H Baso % (Auto) 0.7 Lymph # (Auto) 2.2 [place]man # (Auto) 0.3 Eos # (Auto) 0.5 H Baso # (Auto) 0.0 Abs Immat Gran (auto) 0.02 Absolute Neuts (auto) 2.7 Absolute Nucleated RBC 0.000 Nucleated RBC % (auto) 0.0 Sodium 136 Potassium 4.1 Chloride 106 Carbon Dioxide 25 Anion Gap 9 L BUN 14 D Creatinine 0.72 Estim Creat Clear Calc 93.6 Estimated GFR > 60 Random Glucose Fasting Glucose 89 Calcium 9.0 Magnesium Total Bilirubin 1.0 Direct Bilirubin AST 222 H ALT 294 H Alkaline Phosphatase 95 Total Protein 6.3 L Albumin 3.6 Urine Color Urine Appearance Urine pH Ur Specific Mcgee Urine Protein Urine Glucose (UA) Urine Ketones Urine Blood Urine Nitrite Ur Leukocyte Esterase Urine Test Urine Opiates Screen Urine Fentanyl Screen Ur Barbiturates Screen Ur Phencyclidine Scrn Ur Amphetamines Screen U Benzodiazepines Scrn Urine Cocaine Screen U Marijuana (THC) Screen Ethyl Alcohol COVID-19 (ALBA) COVID-19 Clin Com Hepatitis C Ab (EIA) Reactive H S. pyogenes GrpA JASEN 11/24/21 11/24/21 07:15 07:15 WBC RBC Hgb Hct MCV MCH MCHC RDW Plt Count MPV Immature Gran % (Auto) Neut % (Auto) Lymph % (Auto) [place] % (Auto) Eos % (Auto) Baso % (Auto) Lymph # (Auto) K[place]man # (Auto) Eos # (Auto) Baso # (Auto) Abs Immat Gran (auto) Absolute Neuts (auto) Absolute Nucleated RBC Nucleated RBC % (auto) Sodium 134 L 135 Potassium 4.2 4.2 Chloride 106 106 Carbon Dioxide 23 23 Anion Gap 9 L 10 L BUN 13 14 Creatinine 0.72 0.70 Estim Creat Clear Calc 93.6 96.3 Estimated GFR > 60 > 60 Random Glucose 100 Fasting Glucose 101 H Calcium 9.1 9.1 Magnesium Total Bilirubin 0.4 Direct Bilirubin AST 146 H ALT 263 H Alkaline Phosphatase 131 H D Total Protein 6.6 Albumin 3.9 Urine Color Urine Appearance Urine pH Ur Specific Mcgee Urine Protein Urine Glucose (UA) Urine Ketones Urine Blood Urine Nitrite Ur Leukocyte Esterase Urine Test Urine Opiates Screen Urine Fentanyl Screen Ur Barbiturates Screen Ur Phencyclidine Scrn Ur Amphetamines Screen U Benzodiazepines Scrn Urine Cocaine Screen U Marijuana (THC) Screen Ethyl Alcohol COVID-19 (ALBA) COVID-19 Clin Com Hepatitis C Ab (EIA) S. pyogenes GrpA JASEN Mental Status Exam Mental Status Exam Patient Appearance: Appropriate Patient Orientation: Person, Place, Time and Situation Level of Consciousness: Awake and Alert Patient Behavior: Guarded, Restless and Anxious Mood Description: Anxious and Labile Affect Description: Anxious, Labile and Angry Speech Pattern: Clear and Pressured Thought Process: Rumination Thought Content: positive for [place] Judgement: Fair Medications Medications Current Medications Amoxicillin (Amoxicillin 500 Mg Capsule) 500 mg PO BID [facility] Last Admin: 11/24/21 08:10 Dose: 500 mg Documented by: Clonidine HCl (Clonidine Hcl 0.1 Mg Tablet) 0.1 mg PO TID PRN; Protocol PRN Reason: anxiety/restlessness Last Admin: 11/24/21 10:28 Dose: 0.1 mg Documented by: Enoxaparin Sodium (Enoxaparin Sodium 40 Mg/0.4 Ml Syringe) 40 mg SUBCUT Q24H [facility] Last Admin: 11/23/21 17:49 Dose: 40 mg Documented by: Hydroxyzine HCl (Hydroxyzine Hcl 50 Mg Tablet) 50 mg PO Q6H PRN PRN Reason: anxiety/restlessness Last Admin: 11/24/21 08:10 Dose: 50 mg Documented by: Ibuprofen (Ibuprofen 400 Mg Tablet) 400 mg PO Q6H PRN PRN Reason: Fever or Pain, Mild (Pain Scale 1-3) Last Admin: 11/23/21 08:01 Dose: 400 mg Documented by: Medication (No Benzodiazepines) 1 each MISCELLANE DAILY [facility] Nicotine (Nicotine 14 Mg Patch.Td24) 14 mg TRANSDERMA DAILY [facility] Last Admin: 11/24/21 10:59 Dose: 14 mg Documented by: Ondansetron HCl (Ondansetron Hcl 4 Mg/2 Ml Vial) 4 mg IVPUSH Q8H PRN PRN Reason: Nausea and Vomiting Pharmacy Consult (Consult Rx Perform Med Rec) 1 each MISCELLANE ONCE PRN PRN Reason: Consult order Pharmacy Consult (Consult Rx Perform Med Rec) 1 each MISCELLANE ONCE PRN PRN Reason: Consult order Phenobarbital (Phenobarbital 15 Mg Tablet) 45 mg PO BID MARISABEL Stop: 11/24/21 21:01 Last Admin: 11/24/21 08:10 Dose: 45 mg Documented by: Phenobarbital (Phenobarbital 15 Mg Tablet) 15 mg PO BID MARISABEL Stop: 11/26/21 21:01 Phenobarbital (Phenobarbital 15 Mg Tablet) 15 mg PO DAILY [facility] Stop: 11/28/21 09:01 Phenobarbital Sodium (Phenobarbital Sodium 130 Mg/Ml Vial) 130 mg IM ONCE PRN PRN Reason: Alcohol Withdrawal Last Admin: 11/24/21 09:24 Dose: 130 mg Documented by: Sodium Chloride (0.9 % Sodium Chloride Flush 3 Ml Syringe) 3 ml IVFLUSH QSHIFT [facility] Last Admin: 11/24/21 08:10 Dose: 3 ml Documented by: Allergies Allergies Allergy/AdvReac Type Severity Reaction Status Date / Time No Known Allergies Allergy Verified 03/07/21 14:26 Assessment & Plan Assessment & Plan (1) Opioid use disorder: Status: Acute Code(s): F11.90 - Opioid use, unspecified, uncomplicated Assessment and Plan: LFTs still elevated and buprenorphine not appropriate at this time If patient is interested in starting methadone may be an option--otherwise will wait until next labs and reassess Continue clonidine and hydroxyzine Still on phenobarbital protocol for alcohol withdrawal sx. ? pending psychiatric admission (2) Cocaine use disorder: Status: Acute Code(s): F14.10 - Cocaine abuse, uncomplicated (3) Alcohol use disorder, severe, dependence: Status: Acute Code(s): F10.20 - Alcohol dependence, uncomplicated I spent __40____ minutes with the patient and/or on the patient floor today, greater than?50% of which was spent counseling/coordinating care. PMFSH Past Medical History Medical History Cocaine use Opiate abuse, continuous Smoker Surgical History Surgical History S/P laparoscopic appendectomy Social History Social History Household Members: Significant Other Housing: Apartment Do you presently have visiting nurse or other home services: No Alcohol intake: current Patient Tobacco Use Status: Current everyday Tobacco user Tobacco use type: Cigarette e-Cigarette/Vaping Use: Never Used Substance Use Type: Crack/Cocaine, IV Drugs, Opiates and Other service: No Current occupational status: unemployed
--- NOTE | 2021-11-24 13:26 | P.CNPS_ITS ---
History of Present Illness Date of Service: 11/24/21 Chief Complaint: alcohol withdraw Reason for Consult: Disposition Requesting physician: Josafat Mitchell Discussed with referring provider: Yes Sources of Information: patient interviewed, chart reviewed and crisis/core team assessment reviewed HPI Narrative: Bella is a 31 y.o. Female who carries a dx of MDD, recurrent episode, JOANN, polysubstance abuse, and severe alcohol abuse. She has co-morbid diagnosis of hepatitis C. She presented to [facility] 11/22/21 reporting depression and withdrawal sx after binging on multiple drugs and alcohol for the last 2-3 months. Per hospitalist note, pt reported she has been ?on a downward spiral and feels like she has nothing to live for,? felt her daughter ?would be better off without her.? She had been drinking daily up to a gallon of vodka per day for the last 4 days, required phenobarb protocol on IMC. She had also been snorting cocaine and smoking crack. She has not slept in 4 days or eaten much of anything. She has been through withdrawal in multiple detox programs in the past but reported this is the worst she has ever felt. Has hx of SA by overdosing on seroquel. Per collateral contact, pt?s bf stated he last saw pt on 11/21, she then left home and was drinking, has concerns about her due to her excessive drinking.? Psych consult placed by Dr. Mitchell for disposition, as pt initially signed a CV with [facility] crisis on 11/23/21 but remained on IMC and on 11/24 she stated she would no longer be voluntary for admission. I evaluated the pt this morning and upon interview she reports she was ?high on PCP, heroin, and coke? when [facility] evaluated her and she signed a CV. Says she now wants to go home, ?I wish they waited.? Says ?I dont wanna hurt myself? and she wants to go home and ?be with my family.? Appetite and sleep remain poor. Says she was ?consuming alcohol, no water, straight vodka and drugs.? Denies that she was binging as a suicide attempt, ?I wasnt trying to hurt myself, people I put myself around tend to do the same thing.? Says her bf is her only support. Pt reports she is anxious. Past Psychiatric History: -Hx of previous psych admissions, last 06/28/21 at [facility]. Pt was at [facility] for two weeks, approximately four yrs ago. -Hx of presenting to [facility] Crisis, last seen 06/28/21 after self presenting to the [facility] reporting that two days prior she overdosed on one of her friends Seroquel and Zoloft to kill herself. She was assessed on 03/01/[address] [facility] for SI and substance use, disposition was detox. Medical Evaluation Reviewed: Yes [facility] Medical History Cocaine use Opiate abuse, continuous Smoker Surgical History S/P laparoscopic appendectomy Diagnostics Vital Signs (24Hr): Vital Signs - 24 hr 11/23/21 16:00 11/23/21 19:58 11/24/21 00:00 Temperature 98 F 97.3 F 98.2 F Pulse Rate 83 86 80 Respiratory Rate 16 16 20 Blood Pressure 91/55 L 96/54 L 100/55 L Pulse Oximetry 100 99 99 11/24/21 03:55 11/24/21 07:56 11/24/21 11:35 Temperature 98.2 F 98.6 F 99.0 F Pulse Rate 76 88 99 Respiratory Rate 18 20 18 Blood Pressure 125/59 L 112/61 115/58 L Pulse Oximetry 99 99 100 BMI result Body Mass Index 21.2 Labs Results: 11/24/21 07:15 11/24/21 07:15 Labs: Laboratory Results - last 48 hr 11/22/21 11/22/21 11/22/21 13:30 13:30 13:30 WBC 11.7 H RBC 3.95 L Hgb 12.1 Hct 36.1 L MCV 91.4 MCH 30.6 MCHC 33.5 RDW 13.5 Plt Count 210 MPV 10.0 Immature Gran % (Auto) 0.4 Neut % (Auto) 71.7 Lymph % (Auto) 19.6 L [place] % (Auto) 4.9 Eos % (Auto) 3.1 Baso % (Auto) 0.3 Lymph # (Auto) 2.3 [place] # (Auto) 0.6 Eos # (Auto) 0.4 Baso # (Auto) 0.0 Abs Immat Gran (auto) 0.05 H Absolute Neuts (auto) 8.4 H Absolute Nucleated RBC 0.000 Nucleated RBC % (auto) 0.0 Sodium 136 Potassium 3.5 Chloride 106 Carbon Dioxide 20 L Anion Gap 14 BUN 9 Creatinine 0.74 Estim Creat Clear Calc 91.0 Estimated GFR > 60 Random Glucose 129 H Fasting Glucose Calcium 9.3 Magnesium 2.1 Total Bilirubin 0.7 Direct Bilirubin 0.3 AST 229 H ALT 294 H Alkaline Phosphatase 101 D Total Protein 7.4 Albumin 4.4 Urine Color Urine Appearance Urine pH Ur Specific [place] Urine Protein Urine Glucose (UA) Urine Ketones Urine Blood Urine Nitrite Ur Leukocyte Esterase Urine Test Urine Opiates Screen Urine Fentanyl Screen Ur Barbiturates Screen Ur Phencyclidine Scrn Ur Amphetamines Screen U Benzodiazepines Scrn Urine Cocaine Screen U Marijuana (THC) Screen Ethyl Alcohol COVID-19 (ALBA) Negative COVID-19 Clin Com See Note Hepatitis C Ab (EIA) S. pyogenes GrpA JASEN 11/22/21 11/22/21 11/22/21 13:30 13:31 13:32 WBC RBC Hgb Hct MCV MCH MCHC RDW Plt Count MPV Immature Gran % (Auto) Neut % (Auto) Lymph % (Auto) [place] % (Auto) Eos % (Auto) Baso % (Auto) Lymph # (Auto) [place] # (Auto) Eos # (Auto) Baso # (Auto) Abs Immat Gran (auto) Absolute Neuts (auto) Absolute Nucleated RBC Nucleated RBC % (auto) Sodium Potassium Chloride Carbon Dioxide Anion Gap BUN Creatinine Estim Creat Clear Calc Estimated GFR Random Glucose Fasting Glucose Calcium Magnesium Total Bilirubin Direct Bilirubin AST ALT Alkaline Phosphatase Total Protein Albumin Urine Color YELLOW Urine Appearance CLEAR Urine pH 5.5 Ur Specific [place]enton >= 1.030 H Urine Protein NEG Urine Glucose (UA) NEG Urine Ketones NEG Urine Blood NEG Urine Nitrite NEG Ur Leukocyte Esterase NEG Urine Test NEGATIVE Urine Opiates Screen Urine Fentanyl Screen Ur Barbiturates Screen Ur Phencyclidine Scrn Ur Amphetamines Screen U Benzodiazepines Scrn Urine Cocaine Screen U Marijuana (THC) Screen Ethyl Alcohol 40 COVID-19 (ALBA) COVID-19 Clin Com Hepatitis C Ab (EIA) S. pyogenes GrpA JASEN 11/22/21 11/22/21 11/23/21 13:32 15:07 06:26 WBC 6.9 RBC 3.78 L Hgb 11.6 L Hct 34.3 L MCV 90.7 MCH 30.7 MCHC 33.8 RDW 13.6 Plt Count 188 MPV 9.8 Immature Gran % (Auto) 0.1 Neut % (Auto) 48.5 Lymph % (Auto) 31.7 [place] % (Auto) 6.1 Eos % (Auto) 12.9 H Baso % (Auto) 0.7 Lymph # (Auto) 2.2 [place] # (Auto) 0.4 Eos # (Auto) 0.9 H Baso # (Auto) 0.1 Abs Immat Gran (auto) 0.01 Absolute Neuts (auto) 3.3 Absolute Nucleated RBC 0.000 Nucleated RBC % (auto) 0.0 Sodium Potassium Chloride Carbon Dioxide Anion Gap BUN Creatinine Estim Creat Clear Calc Estimated GFR Random Glucose Fasting Glucose Calcium Magnesium Total Bilirubin Direct Bilirubin AST ALT Alkaline Phosphatase Total Protein Albumin Urine Color Urine Appearance Urine pH Ur Specific [place] Urine Protein Urine Glucose (UA) Urine Ketones Urine Blood Urine Nitrite Ur Leukocyte Esterase Urine Test Urine Opiates Screen POSITIVE H Urine Fentanyl Screen POSITIVE H Ur Barbiturates Screen Not Detected Ur Phencyclidine Scrn POSITIVE H Ur Amphetamines Screen Not Detected U Benzodiazepines Scrn Not Detected Urine Cocaine Screen POSITIVE H U Marijuana (THC) Screen Not Detected Ethyl Alcohol COVID-19 (ALBA) COVID-19 Clin Com Hepatitis C Ab (EIA) S. pyogenes GrpA JASEN Positive A 11/23/21 11/23/21 11/24/21 06:26 06:26 07:15 WBC 5.8 RBC 3.85 L Hgb 11.9 L Hct 35.6 L MCV 92.5 MCH 30.9 MCHC 33.4 RDW 13.5 Plt Count 217 MPV 10.4 Immature Gran % (Auto) 0.3 Neut % (Auto) 46.7 Lymph % (Auto) 37.7 [place] % (Auto) 5.7 Eos % (Auto) 8.9 H Baso % (Auto) 0.7 Lymph # (Auto) 2.2 [place] # (Auto) 0.3 Eos # (Auto) 0.5 H Baso # (Auto) 0.0 Abs Immat Gran (auto) 0.02 Absolute Neuts (auto) 2.7 Absolute Nucleated RBC 0.000 Nucleated RBC % (auto) 0.0 Sodium 136 Potassium 4.1 Chloride 106 Carbon Dioxide 25 Anion Gap 9 L BUN 14 D Creatinine 0.72 Estim Creat Clear Calc 93.6 Estimated GFR > 60 Random Glucose Fasting Glucose 89 Calcium 9.0 Magnesium Total Bilirubin 1.0 Direct Bilirubin AST 222 H ALT 294 H Alkaline Phosphatase 95 Total Protein 6.3 L Albumin 3.6 Urine Color Urine Appearance Urine pH Ur Specific [place] Urine Protein Urine Glucose (UA) Urine Ketones Urine Blood Urine Nitrite Ur Leukocyte Esterase Urine Test Urine Opiates Screen Urine Fentanyl Screen Ur Barbiturates Screen Ur Phencyclidine Scrn Ur Amphetamines Screen U Benzodiazepines Scrn Urine Cocaine Screen U Marijuana (THC) Screen Ethyl Alcohol COVID-19 (ALBA) COVID-19 Clin Com Hepatitis C Ab (EIA) Reactive H S. pyogenes GrpA JASEN 11/24/21 11/24/21 07:15 07:15 WBC RBC Hgb Hct MCV MCH MCHC RDW Plt Count MPV Immature Gran % (Auto) Neut % (Auto) Lymph % (Auto) [place] % (Auto) Eos % (Auto) Baso % (Auto) Lymph # (Auto) [place] # (Auto) Eos # (Auto) Baso # (Auto) Abs Immat Gran (auto) Absolute Neuts (auto) Absolute Nucleated RBC Nucleated RBC % (auto) Sodium 134 L 135 Potassium 4.2 4.2 Chloride 106 106 Carbon Dioxide 23 23 Anion Gap 9 L 10 L BUN 13 14 Creatinine 0.72 0.70 Estim Creat Clear Calc 93.6 96.3 Estimated GFR > 60 > 60 Random Glucose 100 Fasting Glucose 101 H Calcium 9.1 9.1 Magnesium Total Bilirubin 0.4 Direct Bilirubin AST 146 H ALT 263 H Alkaline Phosphatase 131 H D Total Protein 6.6 Albumin 3.9 Urine Color Urine Appearance Urine pH Ur Specific [place] Urine Protein Urine Glucose (UA) Urine Ketones Urine Blood Urine Nitrite Ur Leukocyte Esterase Urine Test Urine Opiates Screen Urine Fentanyl Screen Ur Barbiturates Screen Ur Phencyclidine Scrn Ur Amphetamines Screen U Benzodiazepines Scrn Urine Cocaine Screen U Marijuana (THC) Screen Ethyl Alcohol COVID-19 (ALBA) COVID-19 Clin Com Hepatitis C Ab (EIA) S. pyogenes GrpA JASEN Mental Status Exam Mental Status Exam Narrative: A&O. Lying down in bed, in hospital attire, unkempt appearance, has sitter in the room. Moderate eye contact, attentive. No Tics or Tremors. No abnormal involuntary movements. Agitated, not forthcoming with sx, minimizing, difficult to engage in meaningful conversation. Non-pressured speech, spontaneous with regular rate and rhythm, normal volume and prosody. No prolonged speech latency or dysarthria. Mood is ?fine,? affect is agitated. Denies SI/SIB/HI upon inquiry. Denies A/VH or delusional thought content. Thoughts are coherent, organized. No known cognitive or memory impairment. Insight/ Judgment limited by substance use urges. Medications Medications Current Medications Amoxicillin (Amoxicillin 500 Mg Capsule) 500 mg PO BID [facility] Last Admin: 11/24/21 08:10 Dose: 500 mg Documented by: Clonidine HCl (Clonidine Hcl 0.1 Mg Tablet) 0.1 mg PO TID PRN; Protocol PRN Reason: anxiety/restlessness Last Admin: 11/24/21 10:28 Dose: 0.1 mg Documented by: Enoxaparin Sodium (Enoxaparin Sodium 40 Mg/0.4 Ml Syringe) 40 mg SUBCUT Q24H [facility] Last Admin: 11/23/21 17:49 Dose: 40 mg Documented by: Hydroxyzine HCl (Hydroxyzine Hcl 50 Mg Tablet) 50 mg PO Q6H PRN PRN Reason: anxiety/restlessness Last Admin: 11/24/21 08:10 Dose: 50 mg Documented by: Ibuprofen (Ibuprofen 400 Mg Tablet) 400 mg PO Q6H PRN PRN Reason: Fever or Pain, Mild (Pain Scale 1-3) Last Admin: 11/23/21 08:01 Dose: 400 mg Documented by: Medication (No Benzodiazepines) 1 each MISCELLANE DAILY [facility] Nicotine (Nicotine 14 Mg Patch.Td24) 14 mg TRANSDERMA DAILY [facility] Last Admin: 11/24/21 10:59 Dose: 14 mg Documented by: Ondansetron HCl (Ondansetron Hcl 4 Mg/2 Ml Vial) 4 mg IVPUSH Q8H PRN PRN Reason: Nausea and Vomiting Pharmacy Consult (Consult Rx Perform Med Rec) 1 each MISCELLANE ONCE PRN PRN Reason: Consult order Pharmacy Consult (Consult Rx Perform Med Rec) 1 each MISCELLANE ONCE PRN PRN Reason: Consult order Phenobarbital (Phenobarbital 15 Mg Tablet) 45 mg PO BID [facility] Stop: 11/24/21 21:01 Last Admin: 11/24/21 08:10 Dose: 45 mg Documented by: Phenobarbital (Phenobarbital 15 Mg Tablet) 15 mg PO BID [facility] Stop: 11/26/21 21:01 Phenobarbital (Phenobarbital 15 Mg Tablet) 15 mg PO DAILY [facility] Stop: 11/28/21 09:01 Phenobarbital Sodium (Phenobarbital Sodium 130 Mg/Ml Vial) 130 mg IM ONCE PRN PRN Reason: Alcohol Withdrawal Last Admin: 11/24/21 09:24 Dose: 130 mg Documented by: Sodium Chloride (0.9 % Sodium Chloride Flush 3 Ml Syringe) 3 ml IVFLUSH QSHIFT [facility] Last Admin: 11/24/21 08:10 Dose: 3 ml Documented by: Allergies Allergies Allergy/AdvReac Type Severity Reaction Status Date / Time No Known Allergies Allergy Verified 03/07/21 14:26 Assessment & Plan Assessment & Plan (1) Cocaine use disorder: Status: Acute Code(s): F14.10 - Cocaine abuse, uncomplicated (2) Alcohol use disorder, severe, dependence: Status: Acute Code(s): F10.20 - Alcohol dependence, uncomplicated (3) Opioid use disorder, moderate, dependence: Status: Acute Code(s): F11.20 - Opioid dependence, uncomplicated (4) JOANN (generalized anxiety disorder): Status: Acute Code(s): F41.1 - Generalized anxiety disorder (5) MDD (major depressive disorder), recurrent episode, moderate: Status: Acute Code(s): F33.1 - Major depressive disorder, recurrent, moderate Assessment and Plan: Bella is a 31 y.o. Female who carries a dx of MDD, recurrent episode, JOANN, polysubstance abuse, and severe alcohol abuse. She has co-morbid diagnosis of hepatitis C. She presented to [facility] 11/22/21 reporting depression and withdrawal sx after binging on multiple drugs and alcohol for the last 2-3 months. Hospitalist put in psych consult for disposition due to concerns with pt making suicidal statements and demonstrating high risk behaviors. Pt was asking to retract CV and discharge home AMA. After evaluating pt, pt is deemed to need continued psych evaluation due to concern for harm to self and chronic self destructive behavior. Of note, pt received a total of 25 mg of methadone on 11/24/21.? Plan: -Continue monitoring medically. Patient is currently medically cleared. -Patient cannot leave AGAINST MEDICAL ADVICE. initial treatments ordered collateral history needed I spent minutes with the patient and/or on the patient floor today, greater than?50% of which was spent counseling/coordinating care.
[2021-11-24] MEDS: methADONE HCl 20 MG/2 ML ORAL.CONC 15 MG PO (13:44)
--- NOTE | 2021-11-24 14:08 | PM.DS ---
DS: Providers Provider Date of Service: 11/29/21 Date of admission: 11/22/21 16:58 Primary care physician: Unknown Physician Consults: 11/23/21 08:25 Consult to Care Team Routine Comment: Reason for consultation: Binge drinking, wanted to kill herself by drinking and drugs 11/23/21 12:37 Addiction Medicine Routine Consulting Provider: Santa Alcaraz Reason for consultation: drug abuse, alcohol abuse for your eval and recommendations DS: Diagnosis Discharge Diagnosis (1) Opioid use disorder: Status: Acute (2) Cocaine use disorder: Status: Acute (3) Alcohol use disorder, severe, dependence: Status: Acute (4) Alcohol withdrawal: Status: Acute (5) Acute streptococcal pharyngitis: Status: Acute (6) Suicidal ideation: Status: Acute (7) Opioid withdrawal: Status: Acute DS: Summary Hospital Course Hospital Course: admission note HPI ?31-year-old female with a history of hepatitis-C polysubstance abuse alcohol abuse presents to the ER with severe depression and episode of binge drinking and multiple drug abuse.? States this has been happening over the last 2-3 months.? She states advanced depression and is trying to kill herself by drugs and alcohol.? When queried, she has been smoking crack and snorting cocaine and drinking at least a half a gal of vodka for the last 1-2 weeks.She states she has withdrawn before but? never to this extent. At present, she is tremulous but no evidence of seizure activity.? Intermittent diaphoresis and leg pain Hospital course Alcohol withdrawal ? the patient showed symptoms of withdrawal at time of presentation. Started on Phenobarb protocol with fair response. Addition of extra IM does for increased agitation. advised complete abstinence from alcohol. History of polyDrug abuse ? opioid withdrawal ? the patient was evaluated for history of drug abuse. Evaluated by the addiction team who recommended starting Suboxone when the liver enzymes improved but for the time being considering methadone. Treated for withdrawal symptoms with? clonidine p.r.n., Atarax IM. To follow-up with [facility] Alcaraz. Hep C ?? Blood test showed positive Hep C antibody with reflex Viral load still pending ?? Can follow with Dr Corrigan? as outpatient for treatment of otitis C. suicidal ideation ? Reported she was drinking and taking drugs so that she might . Evaluated by the care team Blaise in who recommended admission to inpatient psych. The patient agreed to be admitted. Strep throat tested positive in the emergency. Treated with amoxicillin. Plan to continue amoxicillin for Seven more days. Time Spent with Patient Time attestation: Total time spent providing and/or coordinating discharge services: Discharge coordination time: Greater than 30 minutes Quality: Stroke Does the patient have a stroke diagnosis?: No Physical Exam Vital Signs: Vital Signs: Last Vital Signs Temp 99.0 F 11/24/21 11:35 Pulse 99 11/24/21 11:35 Resp 18 11/24/21 11:35 BP 115/58 L 11/24/21 11:35 Pulse Ox 100 11/24/21 11:35 BMI result Body Mass Index 21.2 Const: Other: Constitutional : Alert, oriented, mildly irritable,not in distress Neck : Normal inspection, Supple Cardiovascular : RRR, S1 S2, no lower extremity edema Respiratory : Good bilateral air entry, no crackles, wheezes or rhonchi Gastrointestinal: soft, lax, Normal bowel sounds, Non tender Skin : Warm, Dry Neurological : Alert & oriented x3, No focal deficit DS: Data Data Completed and Pending Completed studies during hospitalization [Text1]: Procedures Resection of Appendix, Percutaneous Endoscopic Approach (08/19/21) Labs on day of discharge: Laboratory Results - last 24 hr 11/24/21 11/24/21 11/24/21 07:15 07:15 07:15 WBC 5.8 RBC 3.85 L Hgb 11.9 L Hct 35.6 L MCV 92.5 MCH 30.9 MCHC 33.4 RDW 13.5 Plt Count 217 MPV 10.4 Immature Gran % (Auto) 0.3 Neut % (Auto) 46.7 Lymph % (Auto) 37.7 [place] % (Auto) 5.7 Eos % (Auto) 8.9 H Baso % (Auto) 0.7 Lymph # (Auto) 2.2 [place] # (Auto) 0.3 Eos # (Auto) 0.5 H Baso # (Auto) 0.0 Abs Immat Gran (auto) 0.02 Absolute Neuts (auto) 2.7 Absolute Nucleated RBC 0.000 Nucleated RBC % (auto) 0.0 Sodium 134 L 135 Potassium 4.2 4.2 Chloride 106 106 Carbon Dioxide 23 23 Anion Gap 9 L 10 L BUN 13 14 Creatinine 0.72 0.70 Estim Creat Clear Calc 93.6 96.3 Estimated GFR > 60 > 60 Random Glucose 100 Fasting Glucose 101 H Calcium 9.1 9.1 Total Bilirubin 0.4 AST 146 H ALT 263 H Alkaline Phosphatase 131 H D Total Protein 6.6 Albumin 3.9 Discharge Plan Discharge Patient Disposition: Xfer Psychiatric Hosp Discharge Diagnosis: alcohol abuse and withdrawal opioid abuse and withdrawal Suicidal ideation Referrals: [facility] [Other] - 1 Week Physician,Unknown J [Primary Care Provider] - 1 Week Discharge Medications: Continued hydroxyzine HCl 50 mg Tablet 50 mg PO TID PRN (Reason: Anxiety) RF: 0 Discharge Orders: Discharge Order (Routine); Ordered 11/24/21 Ordered By: Josafat Mitchell Activity on Discharge: As tolerated Stand Alone Forms: Patient Portal Discharge page Care Plan Goals: Read below Health Concerns: Read below Plan of Treatment: Read below Assessment: transfer to psychiatry inpatient for further evaluation treatment. Discharge Date/Time: 11/24/21 17:47
--- NOTE | 2021-11-24 14:37 | MHC.CM.PN ---
Per conversation with MD, Patient will dc to /[facility] Inpatient Psych Unit.
[2021-11-24 15:51] VITALS: BP 112/68; PULSE 98; RESP 18; TEMP 36.4; O2SAT 100
[2021-11-24] MEDS: methADONE HCl 20 MG/2 ML ORAL.CONC 10 MG PO (15:56)
[2021-11-24] MEDS: Ibuprofen 400 MG TABLET PO (16:35)
--- NOTE | 2021-11-24 16:58 | PC.NURSE ---
report given to nurse on [facility] at 1700. Pt currently calm/ cooperative, understands the plan and is in agreement, no further agitation noted or reported. pt cont to report ongoing restless legs and hands and feelings of anxiety, pain in head, throat and back. gave second dose of methadone, 15mg initially at 1345 and then 10mg at 1600, pt cont to report none- very little effect.
[2021-11-29 14:56] LABS: HCV Log PCR 4.54 Log IU/mL (NOT DETECTED); HepC Viral Load 34700 IU/mL (NOT DETECTED)
== END 2021-11-24 17:47 | DRG 113 ==
LOC: HO.ED 14:31 → HO.EDOVER 17:07 → HO.IMC 19:16
PROVIDERS: Physician Assistant; Admitting Provider Hospitalist; Emergency Provider Emergency Medicine; Visit Provider Student in an Organized Health Care Education/Training Program
DX: J02.0 Streptococcal pharyngitis (principal); R45.851 Suicidal ideations; F33.1 Major depressive disorder, recurrent, moderate; F41.1 Generalized anxiety disorder; B19.20 Unspecified viral hepatitis C without hepatic coma; F10.239 Alcohol dependence with withdrawal, unspecified; F11.23 Opioid dependence with withdrawal; Y90.2 Blood alcohol level of 40-59 mg/100 ml; F14.10 Cocaine abuse, uncomplicated; Z20.822 Contact with and (suspected) exposure to COVID-19; Z79.899 Other long term (current) drug therapy
CPT/HCPCS: 36415; 80048; 80053; 80076; 80307; 81003; 81025; 82077; 83735; 85025; 86803; 87522; 87635; 87651; 93005; 99285; J1650; J2405; J2560

== ENCOUNTER 2021-11-24 17:50 | Inpatient (IN) | payer OTHER, SELFPAY ==
[2021-11-24 19:44] VITALS: BMI 21.0
[2021-11-24] MEDS: Magnesium Hydrox/Alum Hydrox 30 ML ORAL.SUSP PO (20:03)
--- NOTE | 2021-11-24 20:19 | PC.ADMIT ---
Pt is a 31 year who presents to [facility] at approx 17:50 on a cv status. Pt is covid -. Tox screen + for Opiates, Fentanyl, Phencyclidine, and cocaine. Pt was restless during her admit. Pt stated her depression was a 4. Her anxiety was a 10. Pt reported that the holidays were a trigger for her to use substance. Pt does not have any out pt services. Pt seeking therapist. Per chart review, pt has hx of poly-substacne abuse, presents to the ER with severe depression and bringing on multiple substance and alcohol for the last 2-3 months. She has been drinking daily up to a gallon of vodka per day for the last 4 days. She is alos snorting cocaine and smoking crack. She has not slept in 4 days or eaten much of anything. She has been through withdrawal and multiple detox is in the past but she reports this is the worst she has ever felt. She attempted suicide in the past with Seroquel overdose
[2021-11-24 21:22] VITALS: BP 134/69; PULSE 96
[2021-11-24] MEDS: cloNIDine HCL 0.1 MG TABLET PO (21:22)
[2021-11-24] MEDS: LORazepam 1 MG TABLET PO (21:22)
[2021-11-24] MEDS: hydrOXYzine HCL 50 MG TABLET PO (22:36)
[2021-11-24] MEDS: traZODone HCL 50 MG TABLET PO (22:36)
--- NOTE | 2021-11-25 01:32 | HO.PSYADMNOT ---
HPI Date of Service: 11/25/21 Chief Complaint: si, depression Sources of Information: patient interviewed, chart reviewed and crisis/core team assessment reviewed HPI Subjective Notes: Arellano Warning and Conditional Voluntary Healthcare Proxy: No Guardianship: No Medical Problems Affecting Mental Status: No Narrative: Bella is a 31 y.o. Female who carries a dx of MDD, recurrent episode, JOANN, polysubstance abuse, and severe alcohol abuse. She has co-morbid diagnosis of hepatitis C. She presented to [facility] 11/22/21 reporting depression and withdrawal sx after binging on multiple drugs and alcohol for the last 2-3 months. Per hospitalist note, pt reported she has been ?on a downward spiral and feels like she has nothing to live for,? felt her daughter ?would be better off without her.? She had been drinking daily up to a gallon of vodka per day for the last 4 days, required phenobarb protocol on [facility]. She had also been snorting cocaine and smoking crack. She has not slept in 4 days or eaten much of anything. She has been through withdrawal in multiple detox programs in the past but reported this is the worst she has ever felt. Has hx of SA by overdosing on seroquel. Per collateral contact, pt?s bf stated he last saw pt on 11/21, she then left home and was drinking, has concerns about her due to her excessive drinking.? I evaluated the pt this morning and upon interview she reports she is irritated, ?little things? are setting her off, i.e. meals being brought up from kitchen incorrect, her chap stick was stolen. Denies assaultive ideation. Says her dose of methadone yesterday ?is not enough.? States hydroxyzine is not helping with anxiety, asks for this to be discontinued. Says Ativan is :not working.? Pt is tearful, labile during interview, states ?I need something stronger man, im sick of feeling this way, i?m always on edge? and that ?Especially with not being on drugs its making it a lot worse.? Says she cant sleep. Has felt ?jumpy? and has had a headache for four days. Appetite is poor. Pt reports her mood is ?all over the place? even during sober time and she has a long hx of insomnia. Reports her moods change throughout the day and ?I can be sitting here laughing and then i?m irritable,? hx of being verbally aggressive, engaging in property destruction, can go from ?zero to a thousand.? Says her mom had bipolar DO. Pt denies feeling depressed, says she is ?Overwhelmed more than depressed, I always feel overwhelmed? and anxious. Denies hallucinations. Says she feels like no one listens.? Past Psychiatric History: -Hx of previous psych admissions, last 06/28/21 at [facility]. Pt was at [facility] for two weeks, approximately four yrs ago. -Hx of presenting to [facility] Crisis, last seen 06/28/21 after self presenting to the [facility] reporting that two days prior she overdosed on one of her friends Seroquel and Zoloft to kill herself. She was assessed on 03/01/21 at the [facility] for SI and substance use, disposition was detox. Medical Evaluation Reviewed: Yes [facility] Medical History Cocaine use Opiate abuse, continuous Smoker Narrative: -Recently admitted to [facility] on 11/22/21 due to acute alcohol withdrawal and elevated LFTs (trending downwards). Surgical History S/P laparoscopic appendectomy Family History: -Has family hx of substance use. Mom had bipolar DO. Social History: -Pt is single, has a 1.5 year-old daughter (in father?s custody). Supports include her significant Other, [employer]. -Pt was born and raised in [place], [place]. 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 Substance History: -Cocaine: onset age 14 yrs, usually smokes, injects, and snorts this drug. She reports that she usually uses about 1-2 grams but was on a 3-4 days binge before been admitted to the ED on 11/21/21. -Heroin: onset age 25 yrs, was on a 3-4 day binge before been admitted to the ED on 11/22/21. -Alcohol: daily use, typically drinks up to 8-12 beers and several nips, to a gallon of vodka a day. Pt was on a 3-4 binge before admission to the ED on 11/21/21. Benzo: hx of abuse, last used this substance about a week ago. -Hx of multiple detox admissions in the past. According to [facility] documentation she recently checked out of detox AMA after she reportedly decided to leave with another patient at the program. Trauma History: -Pt exposed to parents substance use issues. Pt found her mom from overdose 5-6 yrs ago, says she supplied her mom the drugs. Dad when she was age [age] from complications of alcohol abuse. Reports her mom used to leave her on her own for weeks to go on crack runs when she was age [age]-tw[age], or bring me to crack houses. Her GFA took her in at age 14 but he when she was age 24 or 25. Says she has always dated addicts because she thought they would understand her. Diagnostics Vital Signs (24Hr): Vital Signs - 24 hr 11/25/21 06:00 11/25/21 18:00 11/25/21 20:13 Temperature 97.1 F 98 F Pulse Rate 76 98 98 Respiratory Rate 18 16 Blood Pressure 110/55 L 127/66 127/66 Pulse Oximetry 99 BMI result Body Mass Index 21.0 Labs Labs: Laboratory Results - last 48 hr 11/25/21 08:02 Magnesium 2.2 TSH 1.26 Free T4 0.93 Meds/Allergies Meds Home Medications Acetaminophen (Acetaminophen 325 Mg Tablet) 650 mg PO Q6H PRN PRN Reason: Headache/Pain Mild Scale (1-3) Al Hydroxide/Mg Hydroxide (Magnesium Hydrox/Alum Hydrox 30 Ml Oral.Susp) 30 ml PO Q6H PRN PRN Reason: Heartburn/Nausea Last Admin: 11/24/21 20:03 Dose: 30 ml Documented by: Benzocaine (Throat Lozenge, Medicated Lozenge) 1 lozenge MUCOUS MEM Q2H PRN PRN Reason: Sore Throat Benztropine Mesylate (Benztropine Mesylate 0.5 Mg Tablet) 0.5 mg PO BID [facility] Last Admin: 11/25/21 21:36 Dose: 0.5 mg Documented by: Clonidine HCl (Clonidine Hcl 0.1 Mg Tablet) 0.1 mg PO TID PRN; Protocol PRN Reason: hyperarousal Last Admin: 11/25/21 20:13 Dose: 0.1 mg Documented by: Folic Acid (Folic Acid 1 Mg Tablet) 1 mg PO DAILY [facility] Last Admin: 11/25/21 08:33 Dose: 1 mg Documented by: Lorazepam (Lorazepam 1 Mg Tablet) 1 mg PO Q6H PRN PRN Reason: Alcohol Withdrawal Last Admin: 11/25/21 19:15 Dose: 1 mg Documented by: Magnesium Hydroxide (Milk Of Magnesia 30 Ml Oral.Susp) 30 ml PO DAILY PRN PRN Reason: Constipation Methadone HCl (Methadone Hcl 20 Mg/2 Ml Oral.Conc) 30 mg PO DAILY [facility] Multivitamins/Vitamin C (Multivitamin Tablet) 1 tab PO DAILY [facility] Last Admin: 11/25/21 08:33 Dose: 1 tab Documented by: Nicotine Polacrilex (Nicotine Polacrilex 2 Mg Gum) 4 mg BUCCAL Q2H PRN PRN Reason: Nicotine Cravings Last Admin: 11/25/21 13:37 Dose: 4 mg Documented by: Quetiapine Fumarate (Quetiapine Fumarate 50 Mg Tablet) 50 mg PO Q6H PRN PRN Reason: agitation Last Admin: 11/25/21 13:35 Dose: 50 mg Documented by: Quetiapine Fumarate (Quetiapine Fumarate 100 Mg Tablet) 100 mg PO BEDTIME [facility] Last Admin: 11/25/21 21:36 Dose: 100 mg Documented by: Thiamine HCl (Thiamine Hcl 100 Mg Tablet) 100 mg PO DAILY [facility] Last Admin: 11/25/21 08:33 Dose: 100 mg Documented by: Trazodone HCl (Trazodone Hcl 50 Mg Tablet) 50 mg PO BEDTIME PRN PRN Reason: Insomnia Last Admin: 11/25/21 21:36 Dose: 50 mg Documented by: Allergies Allergies Allergy/AdvReac Type Severity Reaction Status Date / Time No Known Allergies Allergy Verified 03/07/21 14:26 Mental Status Exam Mental Status Exam Narrative: A&O. Pt is in casual attire, unkempt appearance, psychomotor restlessness. Moderate eye contact, attentive. No Tics or Tremors. No abnormal involuntary movements. Labile, agitated, tearful at times but overall cooperative. Non-pressured speech, spontaneous with regular rate and rhythm, normal volume and prosody. No prolonged speech latency or dysarthria. Mood is ?angry,? affect is agitated. Denies SI/SIB/HI upon inquiry. Denies A/VH or delusional thought content. Thoughts are coherent, organized. No known cognitive or memory impairment. Insight/ Judgment limited by substance use urges. Assessment & Plan Assessment & Plan (1) Cocaine use disorder: Status: Acute Code(s): F14.10 - Cocaine abuse, uncomplicated (2) Alcohol use disorder, severe, dependence: Status: Acute Code(s): F10.20 - Alcohol dependence, uncomplicated (3) Opioid use disorder, moderate, dependence: Status: Acute Code(s): F11.20 - Opioid dependence, uncomplicated (4) JOANN (generalized anxiety disorder): Status: Acute Code(s): F41.1 - Generalized anxiety disorder (5) MDD (major depressive disorder), recurrent episode, moderate: Status: Acute Code(s): F33.1 - Major depressive disorder, recurrent, moderate Assessment and Plan: Bella is a 31 y.o. Female who carries a dx of MDD, recurrent episode, JOANN, polysubstance abuse, and severe alcohol abuse. She has co-morbid diagnosis of hepatitis C. She presented to [facility] 11/22/21 reporting depression and withdrawal sx after binging on multiple drugs and alcohol for the last 2-3 months. She had been drinking daily up to a gallon of vodka per day for the last 4 days, required phenobarb protocol on [facility]. She had also been snorting cocaine and smoking crack. She has not slept in 4 days or eaten much of anything. She has been through withdrawal in multiple detox programs in the past but reported this is the worst she has ever felt. Pt received a total of 25 mg of methadone on 11/24/21 per drug regulatory affairs specialist, [place]. Plan: Pt reports past benefit on seroquel for anxiety. Will start 50 mg Q6H PRN for agitation, anxiety and start 100 mg QHS for mood stability and may help with sleep. Will start cogentin 0.5 mg BID to help with potential akathesia, as she is also withdrawing from cocaine. Monitor response to medications. Monitor for safety in the milieu. Discharge on stabilization. Patient seen. Chart reviewed. Discussed with team. Obtain collateral contact info?as needed Reason for continued inpatient stay Substantial Risk for: harm to self, inability to function and med/psych decompensation
[2021-11-25 06:00] VITALS: BP 110/55; PULSE 76; RESP 18; TEMP 36.2; O2SAT 99
[2021-11-25] MEDS: Thiamine HCL 100 MG TABLET PO (08:33)
[2021-11-25] MEDS: Multivitamin TABLET 1 TAB PO (08:33)
[2021-11-25] MEDS: Folic Acid 1 MG TABLET PO (08:33)
[2021-11-25] MEDS: LORazepam 1 MG TABLET PO ×2 (08:33→19:15)
[2021-11-25] MEDS: cloNIDine HCL 0.1 MG TABLET PO ×2 (08:33→20:13)
[2021-11-25] MEDS: methADONE HCl 20 MG/2 ML ORAL.CONC 30 MG PO (08:40)
[2021-11-25 08:59] LABS: Magnesium 2.2 mg/dL (1.6-2.6)
[2021-11-25 09:20] LABS: Free T4 (Free Thyroxine) 0.93 ng/dL (0.71-1.85); Thyroid Stimulating Hormone 1.26 uIU/mL (0.32-4.0)
[2021-11-25] MEDS: hydrOXYzine HCL 50 MG TABLET PO (12:08)
[2021-11-25] MEDS: QUEtiapine Fumarate 50 MG TABLET PO (13:35)
[2021-11-25] MEDS: Nicotine Polacrilex 2 MG GUM 4 MG BUCCAL (13:37)
--- NOTE | 2021-11-25 14:48 | HO.ADDICTPRO ---
Subjective Subjective Date of Service: 11/25/21 Reason For Visit: si, depression Interim History: Patient seen in follow-up, now admitted to inpatient behavioral health unit. Patient much less irritable than when initially seen yesterday, pleasant, engaged in interview. Received 30 mg of methadone this morning. Patient reporting to this technical writer and editor that she did not feel that this dose was adequate, however patient was observed by this technical writer and editor to have moments of nystagmus. Patient acknowledged this and stated that she could ?tell it was happening?. She states that she continues to have restless legs, noted to be shifting frequently during interview, also reports racing thoughts/inability to focus. However is eating well, appetite has improved, no vomiting or nausea. Patient was not noted to be diaphoretic, no yawning or rhinorrhea noted during interview. Some of the symptoms patient is experiencing may be related to alcohol and cocaine withdrawal. Patient reported that she used drinking up to a gal of vodka daily and over the past year and a half to 2 years opiate use has significantly increased. Patient tearful, reporting that she has very little to no social supports. She stated, ?I do not know how to live not high?. Review of Systems Constitutional: Reports as per HPI Mental Status Exam Mental Status Exam Patient Appearance: Well Grooomed and Appropriate Patient Orientation: Person, Place, Time and Situation Level of Consciousness: Awake, Restless and Alert Patient Behavior: Talkative Mood Description: Anxious Affect Description: Anxious Speech Pattern: Clear Thought Process: Racing Thought Content: positive for [place] Judgement: Fair Diagnostics Vital Signs (24Hr): Vital Signs - 24 hr 11/24/21 21:22 11/25/21 06:00 Temperature 97.1 F Pulse Rate 96 76 Respiratory Rate 18 Blood Pressure 134/69 110/55 L Pulse Oximetry 99 BMI result Body Mass Index 21.0 Labs Labs: Laboratory Results - last 48 hr 11/25/21 08:02 Magnesium 2.2 TSH 1.26 Free T4 0.93 Medications Medications Current Medications Acetaminophen (Acetaminophen 325 Mg Tablet) 650 mg PO Q6H PRN PRN Reason: Headache/Pain Mild Scale (1-3) Al Hydroxide/Mg Hydroxide (Magnesium Hydrox/Alum Hydrox 30 Ml Oral.Susp) 30 ml PO Q6H PRN PRN Reason: Heartburn/Nausea Last Admin: 11/24/21 20:03 Dose: 30 ml Documented by: Benzocaine (Throat Lozenge, Medicated Lozenge) 1 lozenge MUCOUS MEM Q2H PRN PRN Reason: Sore Throat Clonidine HCl (Clonidine Hcl 0.1 Mg Tablet) 0.1 mg PO TID PRN; Protocol PRN Reason: hyperarousal Last Admin: 11/25/21 08:33 Dose: 0.1 mg Documented by: Folic Acid (Folic Acid 1 Mg Tablet) 1 mg PO DAILY [facility] Last Admin: 11/25/21 08:33 Dose: 1 mg Documented by: Lorazepam (Lorazepam 1 Mg Tablet) 1 mg PO Q6H PRN PRN Reason: Alcohol Withdrawal Last Admin: 11/25/21 08:33 Dose: 1 mg Documented by: Magnesium Hydroxide (Milk Of Magnesia 30 Ml Oral.Susp) 30 ml PO DAILY PRN PRN Reason: Constipation Multivitamins/Vitamin C (Multivitamin Tablet) 1 tab PO DAILY [facility] Last Admin: 11/25/21 08:33 Dose: 1 tab Documented by: Nicotine Polacrilex (Nicotine Polacrilex 2 Mg Gum) 4 mg BUCCAL Q2H PRN PRN Reason: Nicotine Cravings Last Admin: 11/25/21 13:37 Dose: 4 mg Documented by: Quetiapine Fumarate (Quetiapine Fumarate 50 Mg Tablet) 50 mg PO Q6H PRN PRN Reason: agitation Last Admin: 11/25/21 13:35 Dose: 50 mg Documented by: Quetiapine Fumarate (Quetiapine Fumarate 100 Mg Tablet) 100 mg PO BEDTIME [facility] Thiamine HCl (Thiamine Hcl 100 Mg Tablet) 100 mg PO DAILY [facility] Last Admin: 11/25/21 08:33 Dose: 100 mg Documented by: Trazodone HCl (Trazodone Hcl 50 Mg Tablet) 50 mg PO BEDTIME PRN PRN Reason: Insomnia Last Admin: 11/24/21 22:36 Dose: 50 mg Documented by: Allergies Allergies Allergy/AdvReac Type Severity Reaction Status Date / Time No Known Allergies Allergy Verified 03/07/21 14:26 Assessment & Plan Assessment & Plan (1) Opioid use disorder: Status: Acute Code(s): F11.90 - Opioid use, unspecified, uncomplicated Assessment and Plan: Keep methadone at 30 mg for now, will reassess tomorrow and determine if further titration should occur Use caution with concurrent benzodiazepine use Encourage clonidine hydroxyzine for anxiety Recovery support RN to follow up in the morning as well to ensure linkage to care at time of discharge Recheck LFTs, STI an HIV screening with next lab draw (2) Cocaine use disorder: Status: Acute Code(s): F14.10 - Cocaine abuse, uncomplicated (3) Alcohol use disorder, severe, dependence: Status: Acute Code(s): F10.20 - Alcohol dependence, uncomplicated I spent ___35___ minutes with the patient and/or on the patient floor today, greater than?50% of which was spent counseling/coordinating care.
[2021-11-25] MEDS: Benztropine Mesylate 0.5 MG TABLET PO ×2 (17:59→21:36)
[2021-11-25 18:00] VITALS: BP 127/66; PULSE 98; RESP 16; TEMP 36.6
[2021-11-25 20:13] VITALS: BP 127/66; PULSE 98
[2021-11-25] MEDS: QUEtiapine Fumarate 100 MG TABLET PO (21:36)
[2021-11-25] MEDS: traZODone HCL 50 MG TABLET PO (21:36)
[2021-11-26] VITALS (7 sets, daily range): BP systolic 91–129; BP diastolic 53–78; PULSE 83–95; RESP 16; TEMP 36.4–36.6; O2SAT 100
--- NOTE | 2021-11-26 01:33 | P.CNPS_ITS ---
History of Present Illness Date of Service: 11/24/21 Chief Complaint: si, depression Reason for Consult: Disposition Requesting physician: Josafat Mitchell Discussed with referring provider: Yes Sources of Information: patient interviewed, chart reviewed and crisis/core team assessment reviewed HPI Narrative: Bella is a 31 y.o. Female who carries a dx of MDD, recurrent episode, JOANN, polysubstance abuse, and severe alcohol abuse. She has co-morbid diagnosis of hepatitis C. She presented to [facility] 11/22/21 reporting depression and withdrawal sx after binging on multiple drugs and alcohol for the last 2-3 months. Per hospitalist note, pt reported she has been ?on a downward spiral and feels like she has nothing to live for,? felt her daughter ?would be better off without her.? She had been drinking daily up to a gallon of vodka per day for the last 4 days, required phenobarb protocol on [facility]. She had also been snorting cocaine and smoking crack. She has not slept in 4 days or eaten much of anything. She has been through withdrawal in multiple detox programs in the past but reported this is the worst she has ever felt. Has hx of SA by overdosing on seroquel. Per collateral contact, pt?s bf stated he last saw pt on 11/21, she then left home and was drinking, has concerns about her due to her excessive drinking.? Psych consult placed by Dr. Mitchell for disposition, as pt initially signed a CV with [facility] crisis on 11/23/21 but remained on [facility] and on 11/24 she stated she would no longer be voluntary for admission. I evaluated the pt this morning and upon interview she reports she was ?high on PCP, heroin, and coke? when [facility] evaluated her and she signed a CV. Says she now wants to go home, ?I wish they waited.? Says ?I dont wanna hurt myself? and she wants to go home and ?be with my family.? Appetite and sleep remain poor. Says she was ?consuming alcohol, no water, straight vodka and drugs.? Denies that she was binging as a suicide attempt, ?I wasnt trying to hurt myself, people I put myself around tend to do the same thing.? Says her bf is her only support. Pt reports she is anxious. Past Psychiatric History: -Hx of previous psych admissions, last 06/28/21 at [facility]. Pt was at [facility] for two weeks, approximately four yrs ago. -Hx of presenting to [facility] Crisis, last seen 06/28/21 after self presenting to the [facility] reporting that two days prior she overdosed on one of her friends Seroquel and Zoloft to kill herself. She was assessed on 03/01/21 at the [facility] for SI and substance use, disposition was detox. Medical Evaluation Reviewed: Yes [facility] Medical History Cocaine use Opiate abuse, continuous Smoker Surgical History S/P laparoscopic appendectomy Diagnostics Vital Signs (24Hr): Vital Signs - 24 hr 11/25/21 06:00 11/25/21 18:00 11/25/21 20:13 Temperature 97.1 F 98 F Pulse Rate 76 98 98 Respiratory Rate 18 16 Blood Pressure 110/55 L 127/66 127/66 Pulse Oximetry 99 BMI result Body Mass Index 21.0 Labs Labs: Laboratory Results - last 48 hr 11/25/21 08:02 Magnesium 2.2 TSH 1.26 Free T4 0.93 Mental Status Exam Mental Status Exam Narrative: A&O. Lying down in bed, in hospital attire, unkempt appearance, has sitter in the room. Moderate eye contact, attentive. No Tics or Tremors. No abnormal involuntary movements. Agitated, not forthcoming with sx, minimizing, difficult to engage in meaningful conversation. Non-pressured speech, spontaneous with regular rate and rhythm, normal volume and prosody. No prolonged speech latency or dysarthria. Mood is ?fine,? affect is agitated. Denies SI/SIB/HI upon inquiry. Denies A/VH or delusional thought content. Thoughts are coherent, organized. No known cognitive or memory impairment. Insight/ Judgment limited by substance use urges. Medications Medications Current Medications Acetaminophen (Acetaminophen 325 Mg Tablet) 650 mg PO Q6H PRN PRN Reason: Headache/Pain Mild Scale (1-3) Al Hydroxide/Mg Hydroxide (Magnesium Hydrox/Alum Hydrox 30 Ml Oral.Susp) 30 ml PO Q6H PRN PRN Reason: Heartburn/Nausea Last Admin: 11/24/21 20:03 Dose: 30 ml Documented by: Benzocaine (Throat Lozenge, Medicated Lozenge) 1 lozenge MUCOUS MEM Q2H PRN PRN Reason: Sore Throat Benztropine Mesylate (Benztropine Mesylate 0.5 Mg Tablet) 0.5 mg PO BID [facility] Last Admin: 11/25/21 21:36 Dose: 0.5 mg Documented by: Clonidine HCl (Clonidine Hcl 0.1 Mg Tablet) 0.1 mg PO TID PRN; Protocol PRN Reason: hyperarousal Last Admin: 11/25/21 20:13 Dose: 0.1 mg Documented by: Folic Acid (Folic Acid 1 Mg Tablet) 1 mg PO DAILY [facility] Last Admin: 11/25/21 08:33 Dose: 1 mg Documented by: Lorazepam (Lorazepam 1 Mg Tablet) 1 mg PO Q6H PRN PRN Reason: Alcohol Withdrawal Last Admin: 11/25/21 19:15 Dose: 1 mg Documented by: Magnesium Hydroxide (Milk Of Magnesia 30 Ml Oral.Susp) 30 ml PO DAILY PRN PRN Reason: Constipation Methadone HCl (Methadone Hcl 20 Mg/2 Ml Oral.Conc) 30 mg PO DAILY [facility] Multivitamins/Vitamin C (Multivitamin Tablet) 1 tab PO DAILY [facility] Last Admin: 11/25/21 08:33 Dose: 1 tab Documented by: Nicotine Polacrilex (Nicotine Polacrilex 2 Mg Gum) 4 mg BUCCAL Q2H PRN PRN Reason: Nicotine Cravings Last Admin: 11/25/21 13:37 Dose: 4 mg Documented by: Quetiapine Fumarate (Quetiapine Fumarate 50 Mg Tablet) 50 mg PO Q6H PRN PRN Reason: agitation Last Admin: 11/25/21 13:35 Dose: 50 mg Documented by: Quetiapine Fumarate (Quetiapine Fumarate 100 Mg Tablet) 100 mg PO BEDTIME [facility] Last Admin: 11/25/21 21:36 Dose: 100 mg Documented by: Thiamine HCl (Thiamine Hcl 100 Mg Tablet) 100 mg PO DAILY [facility] Last Admin: 11/25/21 08:33 Dose: 100 mg Documented by: Trazodone HCl (Trazodone Hcl 50 Mg Tablet) 50 mg PO BEDTIME PRN PRN Reason: Insomnia Last Admin: 11/25/21 21:36 Dose: 50 mg Documented by: Allergies Allergies Allergy/AdvReac Type Severity Reaction Status Date / Time No Known Allergies Allergy Verified 03/07/21 14:26 Assessment & Plan Assessment & Plan (1) MDD (major depressive disorder), recurrent episode, moderate: Status: Acute Code(s): F33.1 - Major depressive disorder, recurrent, moderate (2) JOANN (generalized anxiety disorder): Status: Acute Code(s): F41.1 - Generalized anxiety disorder (3) Opioid use disorder, moderate, dependence: Status: Acute Code(s): F11.20 - Opioid dependence, uncomplicated (4) Alcohol use disorder, severe, dependence: Status: Acute Code(s): F10.20 - Alcohol dependence, uncomplicated (5) Cocaine use disorder: Status: Acute Code(s): F14.10 - Cocaine abuse, uncomplicated Assessment and Plan: Bella is a 31 y.o. Female who carries a dx of MDD, recurrent episode, JOANN, polysubstance abuse, and severe alcohol abuse. She has co-morbid diagnosis of hepatitis C. She presented to [facility] 11/22/21 reporting depression and withdrawal sx after binging on multiple drugs and alcohol for the last 2-3 months. Hospitalist put in psych consult for disposition due to concerns with pt making suicidal statements and demonstrating high risk behaviors. Pt was asking to retract CV and discharge home AMA. After evaluating pt, pt is deemed to need continued psych evaluation due to concern for harm to self and chronic self destructive behavior. Of note, pt received a total of 25 mg of methadone on 11/24/21.? Plan: -Continue monitoring medically. Patient is currently medically cleared. -Patient cannot leave AGAINST MEDICAL ADVICE. initial treatments ordered collateral history needed ? I spent minutes with the patient and/or on the patient floor today, greater than?50% of which was spent counseling/coordinating care.
[2021-11-26] MEDS: Benztropine Mesylate 0.5 MG TABLET PO ×2 (08:34→20:42)
[2021-11-26] MEDS: Folic Acid 1 MG TABLET PO (08:34)
[2021-11-26] MEDS: Multivitamin TABLET 1 TAB PO (08:35)
[2021-11-26] MEDS: Thiamine HCL 100 MG TABLET PO (08:35)
[2021-11-26] MEDS: cloNIDine HCL 0.1 MG TABLET PO ×2 (08:37→18:20)
[2021-11-26] MEDS: QUEtiapine Fumarate 50 MG TABLET PO ×2 (08:38→15:05)
[2021-11-26] MEDS: Throat Lozenge, Medicated LOZENGE 1 LOZENGE MUCOUS MEM (08:38)
[2021-11-26] MEDS: Nicotine Polacrilex 2 MG GUM 4 MG BUCCAL (08:38)
[2021-11-26] MEDS: methADONE HCl 20 MG/2 ML ORAL.CONC 30 MG PO (08:43)
[2021-11-26 09:31] LABS: Folate 8.8 ng/mL (> or = 4.0); Vitamin B12 348 pg/mL (200-900)
--- NOTE | 2021-11-26 10:16 | P.PNPSI_ITS ---
Subjective Subjective Date of Service: 11/26/21 Reason For Visit: si, depression Subjective Notes: Conditional Voluntary Interim History: Pt reports feeling anxious, restless, craving for opioid and feeling that methadone dose is too low. Pt reports waking up frequently. Pt denies SI/HI and appears future oriented in that she states she wants to make changes in her life to work on recovery. She also declines referrals for substance use treatment options, although open to continue methadone in the comunity. Pt presents as dysphoric, states she has difficult controlling how she reacts when feeling frustrated. 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 Constitutional: Reports as per [facility] Mental Status Exam Mental Status Exam Narrative: A&O. Pt is in casual attire, unkempt appearance, psychomotor restlessness. Moderate eye contact, attentive. No Tics or Tremors. No abnormal involuntary movements. Labile, agitated, tearful at times but overall cooperative. Non-pressured speech, spontaneous with regular rate and rhythm, normal volume and prosody. No prolonged speech latency or dysarthria. Mood is ?angry,? affect is agitated. Denies SI/SIB/HI upon inquiry. Denies A/VH or delusional thought content. Thoughts are coherent, organized. No known cognitive or memory impairment. Insight/ Judgment limited by substance use urges. Diagnostics Vital Signs (24Hr): Vital Signs - 24 hr 11/25/21 20:13 11/26/21 06:00 11/26/21 08:37 Temperature 97.5 F Pulse Rate 98 86 95 Respiratory Rate 16 Blood Pressure 127/66 91/53 L 125/60 Pulse Oximetry 100 11/26/21 12:49 11/26/21 15:05 Temperature Pulse Rate 92 83 Respiratory Rate Blood Pressure 129/60 109/60 Pulse Oximetry BMI result Body Mass Index 21.0 Labs Labs: Laboratory Results - last 48 hr 11/25/21 11/25/21 08:02 08:02 Magnesium 2.2 Vitamin B12 348 Folate 8.8 TSH 1.26 Free T4 0.93 Medications Medications Current Medications Acetaminophen (Acetaminophen 325 Mg Tablet) 650 mg PO Q6H PRN PRN Reason: Headache/Pain Mild Scale (1-3) Al Hydroxide/Mg Hydroxide (Magnesium Hydrox/Alum Hydrox 30 Ml Oral.Susp) 30 ml PO Q6H PRN PRN Reason: Heartburn/Nausea Last Admin: 11/24/21 20:03 Dose: 30 ml Documented by: Benzocaine (Throat Lozenge, Medicated Lozenge) 1 lozenge MUCOUS MEM Q2H PRN PRN Reason: Sore Throat Last Admin: 11/26/21 08:38 Dose: 1 lozenge Documented by: Benztropine Mesylate (Benztropine Mesylate 0.5 Mg Tablet) 0.5 mg PO BID [facility] Last Admin: 11/26/21 08:34 Dose: 0.5 mg Documented by: Clonidine HCl (Clonidine Hcl 0.1 Mg Tablet) 0.1 mg PO TID PRN; Protocol PRN Reason: hyperarousal Last Admin: 11/26/21 08:37 Dose: 0.1 mg Documented by: Famotidine (Famotidine 20 Mg Tablet) 20 mg PO BID [facility] Folic Acid (Folic Acid 1 Mg Tablet) 1 mg PO DAILY [facility] Last Admin: 11/26/21 08:34 Dose: 1 mg Documented by: Loperamide HCl (Loperamide Hcl 2 Mg Capsule) 2 mg PO Q4H PRN PRN Reason: loose stools Lorazepam (Lorazepam 1 Mg Tablet) 1 mg PO Q6H PRN PRN Reason: Alcohol Withdrawal Last Admin: 11/26/21 17:09 Dose: 1 mg Documented by: Lorazepam (Lorazepam 1 Mg Tablet) 2 mg PO ONCE ONE Stop: 11/26/21 18:14 Magnesium Hydroxide (Milk Of Magnesia 30 Ml Oral.Susp) 30 ml PO DAILY PRN PRN Reason: Constipation Methadone HCl (Methadone Hcl 20 Mg/2 Ml Oral.Conc) 35 mg PO DAILY [facility] Multivitamins/Vitamin C (Multivitamin Tablet) 1 tab PO DAILY [facility] Last Admin: 11/26/21 08:35 Dose: 1 tab Documented by: Nicotine Polacrilex (Nicotine Polacrilex 2 Mg Gum) 4 mg BUCCAL Q2H PRN PRN Reason: Nicotine Cravings Last Admin: 11/26/21 08:38 Dose: 2 mg Documented by: Oxcarbazepine (Oxcarbazepine 300 Mg Tablet) 300 mg PO BID [facility] Last Admin: 11/26/21 12:47 Dose: 300 mg Documented by: Propranolol HCl (Propranolol Hcl 10 Mg Tablet) 10 mg PO TID [facility]; Protocol Last Admin: 11/26/21 15:05 Dose: 10 mg Documented by: Quetiapine Fumarate (Quetiapine Fumarate 50 Mg Tablet) 50 mg PO Q6H PRN PRN Reason: agitation Last Admin: 11/26/21 15:05 Dose: 50 mg Documented by: Quetiapine Fumarate (Quetiapine Fumarate 100 Mg Tablet) 100 mg PO BEDTIME [facility] Last Admin: 11/25/21 21:36 Dose: 100 mg Documented by: Thiamine HCl (Thiamine Hcl 100 Mg Tablet) 100 mg PO DAILY [facility] Last Admin: 11/26/21 08:35 Dose: 100 mg Documented by: Trazodone HCl (Trazodone Hcl 50 Mg Tablet) 50 mg PO BEDTIME PRN PRN Reason: Insomnia Last Admin: 11/25/21 21:36 Dose: 50 mg Documented by: Allergies Allergies Allergy/AdvReac Type Severity Reaction Status Date / Time No Known Allergies Allergy Verified 03/07/21 14:26 Assessment & Plan Assessment & Plan (1) Cocaine use disorder: Status: Acute Code(s): F14.10 - Cocaine abuse, uncomplicated (2) Alcohol use disorder, severe, dependence: Status: Acute Code(s): F10.20 - Alcohol dependence, uncomplicated (3) Opioid use disorder, moderate, dependence: Status: Acute Code(s): F11.20 - Opioid dependence, uncomplicated (4) JOANN (generalized anxiety disorder): Status: Acute Code(s): F41.1 - Generalized anxiety disorder (5) MDD (major depressive disorder), recurrent episode, moderate: Status: Acute Code(s): F33.1 - Major depressive disorder, recurrent, moderate Assessment and Plan: Bella is a 31 y.o. Female who carries a dx of MDD, recurrent episode, JOANN, polysubstance abuse, and severe alcohol abuse. She has co-morbid diagnosis of hepatitis C. She presented to [facility] ED 11/22/21 reporting depression and withdrawal sx after binging on multiple drugs and alcohol for the last 2-3 months. Hospitalist put in psych consult for disposition due to concerns with pt making suicidal statements and demonstrating high risk behaviors. PLAN: 1. start trileptal 300mg po BID for mood disregulation, propanolol for restlessness. 2. coordinate aftercare plan. ? I spent minutes with the patient and/or on the patient floor today, greater than?50% of which was spent counseling/coordinating care. Reason for contiued inpatient stay Substantial Risk for: harm to self
[2021-11-26] MEDS: OXcarbazepine 300 MG TABLET PO ×2 (12:47→20:42)
[2021-11-26] MEDS: Propranolol HCL 10 MG TABLET PO ×3 (12:49→20:42)
[2021-11-26] MEDS: LORazepam 1 MG TABLET PO (17:09)
[2021-11-26] MEDS: Loperamide HCl 2 MG CAPSULE PO (18:20)
[2021-11-26] MEDS: LORazepam 1 MG TABLET 2 MG PO (18:20)
[2021-11-26] MEDS: Famotidine 20 MG TABLET PO (18:20)
[2021-11-26] MEDS: traZODone HCL 50 MG TABLET PO (20:42)
[2021-11-26] MEDS: QUEtiapine Fumarate 100 MG TABLET PO (20:42)
--- NOTE | 2021-11-26 22:30 | PC.NURSE ---
PT complaining of withdrawal symptoms most of shift and particularly perseveration on Methadone dose not being effective. PT complained on nausea, diarrhea, body aches and severe anxiety and agitation. Provider was notified and meds were ordered to tx withdrawal symptoms however patient still focused on getting more Methadone. PT stated to this nurse that she does not want the same provider and that she want to see someone else tomorrow. Request was passed on in shift to shift report.
[2021-11-27] MEDS: methADONE HCl 20 MG/2 ML ORAL.CONC 35 MG PO (08:17)
[2021-11-27] MEDS: Famotidine 20 MG TABLET PO ×2 (08:19→20:41)
[2021-11-27] MEDS: Benztropine Mesylate 0.5 MG TABLET PO ×2 (08:19→20:41)
[2021-11-27] MEDS: Multivitamin TABLET 1 TAB PO (08:19)
[2021-11-27 08:20] VITALS: BP 114/56; PULSE 85
[2021-11-27] MEDS: OXcarbazepine 300 MG TABLET PO (08:20)
[2021-11-27] MEDS: Propranolol HCL 10 MG TABLET PO ×3 (08:20→20:40)
[2021-11-27] MEDS: Thiamine HCL 100 MG TABLET PO (08:20)
[2021-11-27] MEDS: Folic Acid 1 MG TABLET PO (08:20)
[2021-11-27 09:41] VITALS: BP 133/80; PULSE 92
[2021-11-27] MEDS: cloNIDine HCL 0.1 MG TABLET PO ×2 (09:41→22:15)
[2021-11-27] MEDS: QUEtiapine Fumarate 50 MG TABLET PO ×2 (10:21→19:05)
--- NOTE | 2021-11-27 11:00 | MHC.RECOVRN ---
Met with pt this morning to discuss OTP linkage. Pt reports ID is at home and boyfriend will email t/w a copy. Pt reporting withdrawal symptoms in the evening including nausea, vomiting, and diarrhea. Pt states They aren't listening to me. I need more methadone. Pt also expressing interest in transitioning to Suboxone. Discussed with Santa Alcaraz APRN.
[2021-11-27 11:16] LABS: Ammonia 30 umol/L (13-55)
[2021-11-27 11:23] LABS: Alanine Aminotransferase 97 U/L (0-31); Alkaline Phosphatase 101 U/L (39-117); Aspartate Amino Transferase 32 U/L (5-31); Bilirubin Direct < 0.2 mg/dL (0.0-0.5); Bilirubin Total 0.2 mg/dL (0.0-1.0); Total Protein 6.7 g/dL (6.5-8.0)
--- NOTE | 2021-11-27 11:47 | HO.PSYCHPN ---
Subjective Subjective Date of Service: 11/27/21 Reason For Visit: si, depression Subjective Notes: Conditional Voluntary Interim History: Pt reports feeling restless, withdrawing from opioids. Pt reports increase anxiety, poor sleep, restless. She presents as dysphoric, tearful at times. She denies suicidal ideation. Per nursing, pt with poor boundaries with peers, especially with male pts. Pt needs to be redirected. 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 Yes Unobtainable due to mental status Constitutional: Reports as per [facility] Mental Status Exam Mental Status Exam Narrative: A&O. Pt is in casual attire, unkempt appearance, psychomotor restlessness. Moderate eye contact, attentive. No Tics or Tremors. No abnormal involuntary movements. Labile, agitated, tearful at times but overall cooperative. Non-pressured speech, spontaneous with regular rate and rhythm, normal volume and prosody. No prolonged speech latency or dysarthria. Mood is ?angry,? affect is agitated. Denies SI/SIB/HI upon inquiry. Denies A/VH or delusional thought content. Thoughts are coherent, organized. No known cognitive or memory impairment. Insight/ Judgment limited by substance use urges. Diagnostics Vital Signs (24Hr): Vital Signs - 24 hr 11/26/21 12:49 11/26/21 15:05 11/26/21 18:00 Temperature 98 F Pulse Rate 92 83 91 Respiratory Rate 16 Blood Pressure 129/60 109/60 116/74 11/26/21 18:20 11/26/21 20:42 11/27/21 08:20 Temperature Pulse Rate 91 95 85 Respiratory Rate Blood Pressure 116/74 118/78 114/56 L 11/27/21 09:41 Temperature Pulse Rate 92 Respiratory Rate Blood Pressure 133/80 BMI result Body Mass Index 21.0 Labs Labs: Laboratory Results - last 48 hr 11/25/21 11/27/21 11/27/21 08:02 10:45 10:45 Total Bilirubin 0.2 Direct Bilirubin < 0.2 AST 32 H D ALT 97 H Alkaline Phosphatase 101 D Ammonia 30 Total Protein 6.7 Albumin 4.0 Vitamin B12 348 Folate 8.8 Medications Medications Current Medications Acetaminophen (Acetaminophen 325 Mg Tablet) 650 mg PO Q6H PRN PRN Reason: Headache/Pain Mild Scale (1-3) Al Hydroxide/Mg Hydroxide (Magnesium Hydrox/Alum Hydrox 30 Ml Oral.Susp) 30 ml PO Q6H PRN PRN Reason: Heartburn/Nausea Last Admin: 11/24/21 20:03 Dose: 30 ml Documented by: Benzocaine (Throat Lozenge, Medicated Lozenge) 1 lozenge MUCOUS MEM Q2H PRN PRN Reason: Sore Throat Last Admin: 11/26/21 08:38 Dose: 1 lozenge Documented by: Benztropine Mesylate (Benztropine Mesylate 0.5 Mg Tablet) 0.5 mg PO BID [facility] Last Admin: 11/27/21 08:19 Dose: 0.5 mg Documented by: Clonidine HCl (Clonidine Hcl 0.1 Mg Tablet) 0.1 mg PO TID PRN; Protocol PRN Reason: hyperarousal Last Admin: 11/27/21 09:41 Dose: 0.1 mg Documented by: Famotidine (Famotidine 20 Mg Tablet) 20 mg PO BID [facility] Last Admin: 11/27/21 08:19 Dose: 20 mg Documented by: Folic Acid (Folic Acid 1 Mg Tablet) 1 mg PO DAILY [facility] Last Admin: 11/27/21 08:20 Dose: 1 mg Documented by: Gabapentin (Gabapentin 300 Mg Capsule) 300 mg PO TID [facility] Loperamide HCl (Loperamide Hcl 2 Mg Capsule) 2 mg PO Q4H PRN PRN Reason: loose stools Last Admin: 11/26/21 18:20 Dose: 2 mg Documented by: Lorazepam (Lorazepam 1 Mg Tablet) 1 mg PO Q6H PRN PRN Reason: Anxiety Magnesium Hydroxide (Milk Of Magnesia 30 Ml Oral.Susp) 30 ml PO DAILY PRN PRN Reason: Constipation Methadone HCl (Methadone Hcl 20 Mg/2 Ml Oral.Conc) 35 mg PO DAILY [facility] Last Admin: 11/27/21 08:17 Dose: 35 mg Documented by: Multivitamins/Vitamin C (Multivitamin Tablet) 1 tab PO DAILY [facility] Last Admin: 11/27/21 08:19 Dose: 1 tab Documented by: Nicotine Polacrilex (Nicotine Polacrilex 2 Mg Gum) 4 mg BUCCAL Q2H PRN PRN Reason: Nicotine Cravings Last Admin: 11/26/21 08:38 Dose: 2 mg Documented by: Propranolol HCl (Propranolol Hcl 10 Mg Tablet) 10 mg PO TID [facility]; Protocol Last Admin: 11/27/21 08:20 Dose: 10 mg Documented by: Quetiapine Fumarate (Quetiapine Fumarate 50 Mg Tablet) 50 mg PO Q6H PRN PRN Reason: agitation Last Admin: 11/27/21 10:21 Dose: 50 mg Documented by: Quetiapine Fumarate (Quetiapine Fumarate 100 Mg Tablet) 100 mg PO BEDTIME [facility] Last Admin: 11/26/21 20:42 Dose: 100 mg Documented by: Quetiapine Fumarate (Quetiapine Fumarate 100 Mg Tablet) 100 mg PO ONCE ONE Stop: 11/27/21 11:46 Thiamine HCl (Thiamine Hcl 100 Mg Tablet) 100 mg PO DAILY [facility] Last Admin: 11/27/21 08:20 Dose: 100 mg Documented by: Trazodone HCl (Trazodone Hcl 50 Mg Tablet) 50 mg PO BEDTIME PRN PRN Reason: Insomnia Last Admin: 11/26/21 20:42 Dose: 50 mg Documented by: Allergies Allergies Allergy/AdvReac Type Severity Reaction Status Date / Time No Known Allergies Allergy Verified 03/07/21 14:26 Assessment & Plan Assessment & Plan (1) Cocaine use disorder: Status: Acute Code(s): F14.10 - Cocaine abuse, uncomplicated (2) Alcohol use disorder, severe, dependence: Status: Acute Code(s): F10.20 - Alcohol dependence, uncomplicated (3) Opioid use disorder, moderate, dependence: Status: Acute Code(s): F11.20 - Opioid dependence, uncomplicated (4) JOANN (generalized anxiety disorder): Status: Acute Code(s): F41.1 - Generalized anxiety disorder (5) MDD (major depressive disorder), recurrent episode, moderate: Status: Acute Code(s): F33.1 - Major depressive disorder, recurrent, moderate Assessment and Plan: Bella is a 31 y.o. Female who carries a dx of MDD, recurrent episode, JOANN, polysubstance abuse, and severe alcohol abuse. She has co-morbid diagnosis of hepatitis C. She presented to [facility] 11/22/21 reporting depression and withdrawal sx after binging on multiple drugs and alcohol for the last 2-3 months. Hospitalist put in psych consult for disposition due to concerns with pt making suicidal statements and demonstrating high risk behaviors. PLAN: 1. D/c trileptal, start gabapentin 300mg po TID 2. continue propanolol 10mg po TID 2. coordinate aftercare plan. ? I spent minutes with the patient and/or on the patient floor today, greater than?50% of which was spent counseling/coordinating care. Reason for contiued inpatient stay Substantial Risk for: harm to self
[2021-11-27] MEDS: LORazepam 1 MG TABLET 2 MG PO (12:40)
[2021-11-27] MEDS: Gabapentin 300 MG CAPSULE PO ×3 (12:40→20:45)
[2021-11-27] MEDS: QUEtiapine Fumarate 100 MG TABLET PO ×2 (12:41→20:41)
[2021-11-27] MEDS: Buprenorphine/Naloxone 2/0.5mg FILM 0.5 FILM SUBLINGUAL ×3 (14:15→17:25)
[2021-11-27 15:07] VITALS: BP 123/72; PULSE 100
--- NOTE | 2021-11-27 16:02 | P.PNADD_ITS ---
Subjective Subjective Date of Service: 11/27/21 Reason For Visit: si, depression Interim History: Patient irritable, labile, but able to participate in interview Stating that she wants to transition to suboxone from methadone. Reporting difficulty sleeping, worsening irritability, restlessness, reporting nausea and vomiting, but is also eating all of her meals and in the milieu during the day. Aside from restlessness and irritability, no other signs of opioid withdrawal observed buy this television writer Patients reported sx align with alcohol and cocaine withdrawal and less with severe opioid withdrawal. Discussed methadone dosing and effectiveness on managing sx and patient reports it only makes me tired, that's it Discussed plan for transitioning from methadone to buprenorphine, patient requiring re-education around plan as she verbalized understanding and later appeared to not understand. Review of Systems Constitutional: Reports as per [facility] Mental Status Exam Mental Status Exam Narrative: A&O. Pt is in casual attire, unkempt appearance, psychomotor restlessness. Moderate eye contact, attentive. No Tics or Tremors. No abnormal involuntary movements. Labile, agitated, tearful at times but overall cooperative. Non-pressured speech, spontaneous with regular rate and rhythm, normal volume and prosody. No prolonged speech latency or dysarthria. Mood is ?angry,? affect is agitated. Denies SI/SIB/HI upon inquiry. Denies A/VH or delusional thought content. Thoughts are coherent, organized. No known cognitive or memory impairment. Insight/ Judgment limited by substance use urges. Diagnostics Vital Signs (24Hr): Vital Signs - 24 hr 11/26/21 18:00 11/26/21 18:20 11/26/21 20:42 Temperature 98 F Pulse Rate 91 91 95 Respiratory Rate 16 Blood Pressure 116/74 116/74 118/78 11/27/21 08:20 11/27/21 09:41 11/27/21 15:07 Temperature Pulse Rate 85 92 100 Respiratory Rate Blood Pressure 114/56 L 133/80 123/72 BMI result Body Mass Index 21.0 Labs Labs: Laboratory Results - last 48 hr 11/25/21 11/27/21 11/27/21 08:02 10:45 10:45 Total Bilirubin 0.2 Direct Bilirubin < 0.2 AST 32 H D ALT 97 H Alkaline Phosphatase 101 D Ammonia 30 Total Protein 6.7 Albumin 4.0 Vitamin B12 348 Folate 8.8 Medications Medications Current Medications Acetaminophen (Acetaminophen 325 Mg Tablet) 650 mg PO Q6H PRN PRN Reason: Headache/Pain Mild Scale (1-3) Al Hydroxide/Mg Hydroxide (Magnesium Hydrox/Alum Hydrox 30 Ml Oral.Susp) 30 ml PO Q6H PRN PRN Reason: Heartburn/Nausea Last Admin: 11/24/21 20:03 Dose: 30 ml Documented by: Benzocaine (Throat Lozenge, Medicated Lozenge) 1 lozenge MUCOUS MEM Q2H PRN PRN Reason: Sore Throat Last Admin: 11/26/21 08:38 Dose: 1 lozenge Documented by: Benztropine Mesylate (Benztropine Mesylate 0.5 Mg Tablet) 0.5 mg PO BID [facility] Last Admin: 11/27/21 08:19 Dose: 0.5 mg Documented by: Buprenorphine/Naloxone (Buprenorphine/Naloxone 2/0.5mg Film) 0.5 film SUBLINGUAL ONCE ONE Stop: 11/27/21 18:01 Buprenorphine/Naloxone (Buprenorphine/Naloxone 2/0.5mg Film) 1 film SUBLINGUAL ONCE ONE Stop: 11/28/21 08:01 Buprenorphine/Naloxone (Buprenorphine/Naloxone 2/0.5mg Film) 1 film SUBLINGUAL ONCE ONE Stop: 11/28/21 11:01 Clonidine HCl (Clonidine Hcl 0.1 Mg Tablet) 0.1 mg PO TID PRN; Protocol PRN Reason: hyperarousal Last Admin: 11/27/21 09:41 Dose: 0.1 mg Documented by: Famotidine (Famotidine 20 Mg Tablet) 20 mg PO BID [facility] Last Admin: 11/27/21 08:19 Dose: 20 mg Documented by: Folic Acid (Folic Acid 1 Mg Tablet) 1 mg PO DAILY [facility] Last Admin: 11/27/21 08:20 Dose: 1 mg Documented by: Gabapentin (Gabapentin 300 Mg Capsule) 300 mg PO TID [facility] Last Admin: 11/27/21 15:07 Dose: 300 mg Documented by: Loperamide HCl (Loperamide Hcl 2 Mg Capsule) 2 mg PO Q4H PRN PRN Reason: loose stools Last Admin: 11/26/21 18:20 Dose: 2 mg Documented by: Lorazepam (Lorazepam 1 Mg Tablet) 1 mg PO Q6H PRN PRN Reason: Anxiety Magnesium Hydroxide (Milk Of Magnesia 30 Ml Oral.Susp) 30 ml PO DAILY PRN PRN Reason: Constipation Methadone HCl (Methadone Hcl 20 Mg/2 Ml Oral.Conc) 35 mg PO DAILY [facility] Last Admin: 11/27/21 08:17 Dose: 35 mg Documented by: Multivitamins/Vitamin C (Multivitamin Tablet) 1 tab PO DAILY [facility] Last Admin: 11/27/21 08:19 Dose: 1 tab Documented by: Nicotine Polacrilex (Nicotine Polacrilex 2 Mg Gum) 4 mg BUCCAL Q2H PRN PRN Reason: Nicotine Cravings Last Admin: 11/26/21 08:38 Dose: 2 mg Documented by: Propranolol HCl (Propranolol Hcl 10 Mg Tablet) 10 mg PO TID [facility]; Protocol Last Admin: 11/27/21 15:07 Dose: 10 mg Documented by: Quetiapine Fumarate (Quetiapine Fumarate 50 Mg Tablet) 50 mg PO Q6H PRN PRN Reason: agitation Last Admin: 11/27/21 10:21 Dose: 50 mg Documented by: Quetiapine Fumarate (Quetiapine Fumarate 100 Mg Tablet) 100 mg PO BEDTIME [facility] Last Admin: 11/26/21 20:42 Dose: 100 mg Documented by: Thiamine HCl (Thiamine Hcl 100 Mg Tablet) 100 mg PO DAILY [facility] Last Admin: 11/27/21 08:20 Dose: 100 mg Documented by: Trazodone HCl (Trazodone Hcl 50 Mg Tablet) 50 mg PO BEDTIME PRN PRN Reason: Insomnia Last Admin: 11/26/21 20:42 Dose: 50 mg Documented by: Allergies Allergies Allergy/AdvReac Type Severity Reaction Status Date / Time No Known Allergies Allergy Verified 03/07/21 14:26 Assessment & Plan Assessment & Plan (1) Opioid use disorder: Status: Acute Code(s): F11.90 - Opioid use, unspecified, uncomplicated Assessment and Plan: * Tentative plan: * Continue methadone 35mg QD for now * Suboxone 1mg X3 doses today (total of 3mg ) * Suboxone 2mg X3 tomorrow (total of 6mg) * Suboxone 4mg BID and D/C Methadone * Suboxone 4mg TID Friday * Plan may change based on patients response to treatment * * Discussed with RN and attending provider If patient reports worsening withdrawal sx, hold suboxone dosing and notify this television writer I spent __45____ minutes with the patient and/or on the patient floor today, greater than?50% of which was spent counseling/coordinating care.
[2021-11-27 18:00] VITALS: BP 114/72; PULSE 96; TEMP 36.7; O2SAT 96
[2021-11-27] MEDS: LORazepam 1 MG TABLET PO (19:05)
[2021-11-27] MEDS: Loperamide HCl 2 MG CAPSULE PO (19:05)
[2021-11-27 20:40] VITALS: BP 125/62; PULSE 97
[2021-11-27 22:15] VITALS: BP 119/61; PULSE 96
[2021-11-27] MEDS: traZODone HCL 50 MG TABLET PO (22:15)
--- NOTE | 2021-11-27 23:59 | PC.NURSE ---
Patient very labile this shift. She was angry that she was having any type of withdrawals and wanted to be given medication anything I can get . Patient was irritated when this aligner typewriter attempted to give her education about the medications prescribed for her. She stated Never mind, you clearly don't understand me . Patient was noted to go into the patient kitchen area, eat a peanut butter and jelly sandwich and be laughing a talking with peers and then come to the medication window and demand more medication for my withdrawals . Patient did verbalize that she has quick mood swings and she feels that that is another problem in addition to her substance use. Several times she stated I really need to talk to a medical doctor about my problems .
[2021-11-28 06:00] VITALS: BP 115/56; PULSE 84; RESP 18; TEMP 36.8; O2SAT 99
[2021-11-28] MEDS: LORazepam 1 MG TABLET PO ×3 (06:22→20:49)
[2021-11-28] MEDS: Buprenorphine/Naloxone 2/0.5mg FILM 1 FILM SUBLINGUAL ×3 (06:24→18:17)
[2021-11-28 08:06] LABS: HIV AB/AG Nonreactive (Nonreactive)
[2021-11-28 08:09] VITALS: BP 103/68; PULSE 92
[2021-11-28] MEDS: QUEtiapine Fumarate 50 MG TABLET PO (08:09)
[2021-11-28] MEDS: Multivitamin TABLET 1 TAB PO (08:09)
[2021-11-28] MEDS: Thiamine HCL 100 MG TABLET PO (08:09)
[2021-11-28] MEDS: Folic Acid 1 MG TABLET PO (08:09)
[2021-11-28] MEDS: Benztropine Mesylate 0.5 MG TABLET PO ×2 (08:09→22:10)
[2021-11-28] MEDS: Gabapentin 300 MG CAPSULE PO ×3 (08:09→20:48)
[2021-11-28] MEDS: Famotidine 20 MG TABLET PO ×2 (08:09→22:09)
[2021-11-28] MEDS: cloNIDine HCL 0.1 MG TABLET PO (08:09)
[2021-11-28] MEDS: Propranolol HCL 10 MG TABLET PO ×2 (08:09→22:09)
--- NOTE | 2021-11-28 09:06 | P.PNPSI_ITS ---
Subjective Subjective Date of Service: 11/29/21 Reason For Visit: si, depression Subjective Notes: Conditional Voluntary Interim History: Pt reports less withdrawal from opioid. She reports she slept better last night. She reports feeling less cravings, still presents as labile and poor boundaries with peers. Pt informed of transfer to M3 as pt arguing with female peer and poor boundaries with male peer. Limited insight into how her behaviors affect others. She denies SI/HI. 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 Yes Unobtainable due to mental status Constitutional: Reports as per [facility] Mental Status Exam Mental Status Exam Narrative: A&O. Pt is in casual attire, unkempt appearance, psychomotor restlessness. Moderate eye contact, attentive. No Tics or Tremors. No abnormal involuntary movements. Labile, agitated, tearful at times but overall cooperative. Non-pressured speech, spontaneous with regular rate and rhythm, normal volume and prosody. No prolonged speech latency or dysarthria. Mood is ?angry,? affect is agitated. Denies SI/SIB/HI upon inquiry. Denies A/VH or delusional thought content. Thoughts are coherent, organized. No known cognitive or memory impairment. Insight/ Judgment limited by substance use urges. Diagnostics Vital Signs (24Hr): Vital Signs - 24 hr 11/28/21 20:30 11/28/21 22:09 11/29/21 08:57 Temperature 98.7 F Pulse Rate 111 H 110 H 98 Blood Pressure 126/72 127/70 126/57 L Pulse Oximetry 97 BMI result Body Mass Index 21.0 Labs Labs: Laboratory Results - last 48 hr 11/27/21 11/27/21 11/27/21 10:45 10:45 10:45 Total Bilirubin 0.2 Direct Bilirubin < 0.2 AST 32 H D ALT 97 H Alkaline Phosphatase 101 D Ammonia 30 Total Protein 6.7 Albumin 4.0 HIV 1&2 Ab/P24 Ag 4thGn Nonreactive Medications Medications Current Medications Acetaminophen (Acetaminophen 325 Mg Tablet) 650 mg PO Q6H PRN PRN Reason: Headache/Pain Mild Scale (1-3) Last Admin: 11/28/21 20:49 Dose: 650 mg Documented by: Al Hydroxide/Mg Hydroxide (Magnesium Hydrox/Alum Hydrox 30 Ml Oral.Susp) 30 ml PO Q6H PRN PRN Reason: Heartburn/Nausea Last Admin: 11/24/21 20:03 Dose: 30 ml Documented by: Benzocaine (Throat Lozenge, Medicated Lozenge) 1 lozenge MUCOUS MEM Q2H PRN PRN Reason: Sore Throat Last Admin: 11/26/21 08:38 Dose: 1 lozenge Documented by: Benztropine Mesylate (Benztropine Mesylate 0.5 Mg Tablet) 0.5 mg PO BID [facility] Last Admin: 11/29/21 08:58 Dose: 0.5 mg Documented by: Buprenorphine/Naloxone (Buprenorphine/Naloxone 4/1 Mg Film) 1 film SUBLINGUAL ONCE ONE Stop: 11/29/21 12:01 Clonidine HCl (Clonidine Hcl 0.1 Mg Tablet) 0.1 mg PO TID PRN; Protocol PRN Reason: hyperarousal Last Admin: 11/28/21 08:09 Dose: 0.1 mg Documented by: Famotidine (Famotidine 20 Mg Tablet) 20 mg PO BID [facility] Last Admin: 11/29/21 08:57 Dose: 20 mg Documented by: Folic Acid (Folic Acid 1 Mg Tablet) 1 mg PO DAILY [facility] Last Admin: 11/29/21 08:58 Dose: 1 mg Documented by: Gabapentin (Gabapentin 300 Mg Capsule) 300 mg PO TID [facility] Last Admin: 11/29/21 08:57 Dose: 300 mg Documented by: Loperamide HCl (Loperamide Hcl 2 Mg Capsule) 2 mg PO Q4H PRN PRN Reason: loose stools Last Admin: 11/27/21 19:05 Dose: 2 mg Documented by: Lorazepam (Lorazepam 1 Mg Tablet) 1 mg PO Q6H PRN PRN Reason: Anxiety Last Admin: 11/28/21 20:49 Dose: 1 mg Documented by: Magnesium Hydroxide (Milk Of Magnesia 30 Ml Oral.Susp) 30 ml PO DAILY PRN PRN Reason: Constipation Multivitamins/Vitamin C (Multivitamin Tablet) 1 tab PO DAILY [facility] Last Admin: 11/29/21 08:57 Dose: 1 tab Documented by: Nicotine Polacrilex (Nicotine Polacrilex 2 Mg Gum) 4 mg BUCCAL Q2H PRN PRN Reason: Nicotine Cravings Last Admin: 11/28/21 09:43 Dose: 4 mg Documented by: Propranolol HCl (Propranolol Hcl 10 Mg Tablet) 10 mg PO TID [facility]; Protocol Last Admin: 11/29/21 08:57 Dose: 10 mg Documented by: Quetiapine Fumarate (Quetiapine Fumarate 100 Mg Tablet) 100 mg PO BEDTIME [facility] Last Admin: 11/28/21 22:09 Dose: 100 mg Documented by: Quetiapine Fumarate (Quetiapine Fumarate 100 Mg Tablet) 100 mg PO Q6H PRN PRN Reason: agitation Last Admin: 11/28/21 19:32 Dose: 100 mg Documented by: Thiamine HCl (Thiamine Hcl 100 Mg Tablet) 100 mg PO DAILY [facility] Last Admin: 11/29/21 08:58 Dose: 100 mg Documented by: Trazodone HCl (Trazodone Hcl 50 Mg Tablet) 50 mg PO BEDTIME PRN PRN Reason: Insomnia Last Admin: 11/28/21 22:14 Dose: 50 mg Documented by: Allergies Allergies Allergy/AdvReac Type Severity Reaction Status Date / Time No Known Allergies Allergy Verified 03/07/21 14:26 Assessment & Plan Assessment & Plan (1) Cocaine use disorder: Status: Acute Code(s): F14.10 - Cocaine abuse, uncomplicated (2) Alcohol use disorder, severe, dependence: Status: Acute Code(s): F10.20 - Alcohol dependence, uncomplicated (3) Opioid use disorder, moderate, dependence: Status: Acute Code(s): F11.20 - Opioid dependence, uncomplicated (4) JOANN (generalized anxiety disorder): Status: Acute Code(s): F41.1 - Generalized anxiety disorder (5) MDD (major depressive disorder), recurrent episode, moderate: Status: Acute Code(s): F33.1 - Major depressive disorder, recurrent, moderate Assessment and Plan: Bella is a 31 y.o. Female who carries a dx of MDD, recurrent episode, JOANN, polysubstance abuse, and severe alcohol abuse. She has co-morbid diagnosis of hepatitis C. She presented to [facility] 11/[facility]21 reporting depression and withdrawal sx after binging on multiple drugs and alcohol for the last 2-3 months. Hospitalist put in psych consult for disposition due to concerns with pt making suicidal statements and demonstrating high risk behaviors. PLAN: 1. D/c trileptal, start gabapentin 300mg po TID 2. continue propanolol 10mg po TID 2. coordinate aftercare plan. ? I spent minutes with the patient and/or on the patient floor today, greater than?50% of which was spent counseling/coordinating care. Reason for contiued inpatient stay Substantial Risk for: harm to self
[2021-11-28] MEDS: methADONE HCl 20 MG/2 ML ORAL.CONC 35 MG PO (09:17)
[2021-11-28] MEDS: Nicotine Polacrilex 2 MG GUM 4 MG BUCCAL (09:43)
[2021-11-28] MEDS: LORazepam 1 MG TABLET 2 MG PO (12:28)
--- NOTE | 2021-11-28 14:08 | HO.ADDICTPRO ---
Subjective Subjective Date of Service: 11/28/21 Reason For Visit: si, depression Interim History: Patient started transition from methadone to subxone yesterday Tolerating transition with no issues--continues to endorse extreme anxiety. but no other withdrawal sx Unable to evaluate patient as she was in the midst of a crying episode following interaction with peer on the unit. RN providing update to this com writer Review of Systems Review of Systems Yes Unobtainable due to mental status Diagnostics Vital Signs (24Hr): Vital Signs - 24 hr 11/27/21 15:07 11/27/21 18:00 11/27/21 20:40 Temperature 98.1 F Pulse Rate 100 96 97 Respiratory Rate Blood Pressure 123/72 114/72 125/62 Pulse Oximetry 96 11/27/21 22:15 11/28/21 06:00 11/28/21 08:09 Temperature 98.2 F Pulse Rate 96 84 92 Respiratory Rate 18 Blood Pressure 119/61 115/56 L 103/68 Pulse Oximetry 99 BMI result Body Mass Index 21.0 Labs Labs: Laboratory Results - last 48 hr 11/27/21 11/27/21 11/27/21 10:45 10:45 10:45 Total Bilirubin 0.2 Direct Bilirubin < 0.2 AST 32 H D ALT 97 H Alkaline Phosphatase 101 D Ammonia 30 Total Protein 6.7 Albumin 4.0 HIV 1&2 Ab/P24 Ag 4thGn Nonreactive Medications Medications Current Medications Acetaminophen (Acetaminophen 325 Mg Tablet) 650 mg PO Q6H PRN PRN Reason: Headache/Pain Mild Scale (1-3) Al Hydroxide/Mg Hydroxide (Magnesium Hydrox/Alum Hydrox 30 Ml Oral.Susp) 30 ml PO Q6H PRN PRN Reason: Heartburn/Nausea Last Admin: 11/24/21 20:03 Dose: 30 ml Documented by: Benzocaine (Throat Lozenge, Medicated Lozenge) 1 lozenge MUCOUS MEM Q2H PRN PRN Reason: Sore Throat Last Admin: 11/26/21 08:38 Dose: 1 lozenge Documented by: Benztropine Mesylate (Benztropine Mesylate 0.5 Mg Tablet) 0.5 mg PO BID [facility] Last Admin: 11/28/21 08:09 Dose: 0.5 mg Documented by: Buprenorphine/Naloxone (Buprenorphine/Naloxone 2/0.5mg Film) 1 film SUBLINGUAL ONCE ONE Stop: 11/28/21 16:01 Buprenorphine/Naloxone (Buprenorphine/Naloxone 4/1 Mg Film) 1 film SUBLINGUAL ONCE ONE Stop: 11/29/21 08:01 Buprenorphine/Naloxone (Buprenorphine/Naloxone 4/1 Mg Film) 1 film SUBLINGUAL ONCE ONE Stop: 11/29/21 12:01 Clonidine HCl (Clonidine Hcl 0.1 Mg Tablet) 0.1 mg PO TID PRN; Protocol PRN Reason: hyperarousal Last Admin: 11/28/21 08:09 Dose: 0.1 mg Documented by: Famotidine (Famotidine 20 Mg Tablet) 20 mg PO BID [facility] Last Admin: 11/28/21 08:09 Dose: 20 mg Documented by: Folic Acid (Folic Acid 1 Mg Tablet) 1 mg PO DAILY [facility] Last Admin: 11/28/21 08:09 Dose: 1 mg Documented by: Gabapentin (Gabapentin 300 Mg Capsule) 300 mg PO TID [facility] Last Admin: 11/28/21 08:09 Dose: 300 mg Documented by: Loperamide HCl (Loperamide Hcl 2 Mg Capsule) 2 mg PO Q4H PRN PRN Reason: loose stools Last Admin: 11/27/21 19:05 Dose: 2 mg Documented by: Lorazepam (Lorazepam 1 Mg Tablet) 1 mg PO Q6H PRN PRN Reason: Anxiety Last Admin: 11/28/21 12:12 Dose: 1 mg Documented by: Magnesium Hydroxide (Milk Of Magnesia 30 Ml Oral.Susp) 30 ml PO DAILY PRN PRN Reason: Constipation Multivitamins/Vitamin C (Multivitamin Tablet) 1 tab PO DAILY [facility] Last Admin: 11/28/21 08:09 Dose: 1 tab Documented by: Nicotine Polacrilex (Nicotine Polacrilex 2 Mg Gum) 4 mg BUCCAL Q2H PRN PRN Reason: Nicotine Cravings Last Admin: 11/28/21 09:43 Dose: 4 mg Documented by: Propranolol HCl (Propranolol Hcl 10 Mg Tablet) 10 mg PO TID [facility]; Protocol Last Admin: 11/28/21 08:09 Dose: 10 mg Documented by: Quetiapine Fumarate (Quetiapine Fumarate 50 Mg Tablet) 50 mg PO Q6H PRN PRN Reason: agitation Last Admin: 11/28/21 08:09 Dose: 50 mg Documented by: Quetiapine Fumarate (Quetiapine Fumarate 100 Mg Tablet) 100 mg PO BEDTIME [facility] Last Admin: 11/27/21 20:41 Dose: 100 mg Documented by: Thiamine HCl (Thiamine Hcl 100 Mg Tablet) 100 mg PO DAILY [facility] Last Admin: 11/28/21 08:09 Dose: 100 mg Documented by: Trazodone HCl (Trazodone Hcl 50 Mg Tablet) 50 mg PO BEDTIME PRN PRN Reason: Insomnia Last Admin: 11/27/21 22:15 Dose: 50 mg Documented by: Allergies Allergies Allergy/AdvReac Type Severity Reaction Status Date / Time No Known Allergies Allergy Verified 03/07/21 14:26 Assessment & Plan Assessment & Plan (1) Opioid use disorder: Status: Acute Code(s): F11.90 - Opioid use, unspecified, uncomplicated Assessment and Plan: Additional 2mg Suboxone today (total of 6mg ) Methadone d/c Tomorrow () Suboxone 4mg AM and 4mg mid-day and re-eval need for additional dose later in the day Will continue to follow I spent __15____ minutes with the patient and/or on the patient floor today, greater than?50% of which was spent counseling/coordinating care.
--- NOTE | 2021-11-28 17:21 | PC.NURSE ---
Patient currently sleeping following medication administration on M5. Reviewed with Vicki Cisse,patient not to be woken for 1500 administration. Suboxone to be administered when patient wakes.
[2021-11-28] MEDS: QUEtiapine Fumarate 100 MG TABLET PO ×2 (19:32→22:09)
[2021-11-28 20:30] VITALS: BP 126/72; PULSE 111; TEMP 37.1; O2SAT 97
[2021-11-28] MEDS: Acetaminophen 325 MG TABLET 650 MG PO (20:49)
[2021-11-28 22:09] VITALS: BP 127/70; PULSE 110
[2021-11-28] MEDS: traZODone HCL 50 MG TABLET PO (22:14)
[2021-11-29 06:00] VITALS: BP 126/57; PULSE 98; RESP 18; TEMP 36.7; O2SAT 96
[2021-11-29 07:00] VITALS: BMI 24.5
[2021-11-29 08:57] VITALS: BP 126/57; PULSE 98
[2021-11-29] MEDS: Buprenorphine/Naloxone 4/1 mg FILM 1 FILM SUBLINGUAL ×4 (08:57→20:21)
[2021-11-29] MEDS: Multivitamin TABLET 1 TAB PO (08:57)
[2021-11-29] MEDS: Propranolol HCL 10 MG TABLET PO ×3 (08:57→20:20)
[2021-11-29] MEDS: Famotidine 20 MG TABLET PO ×2 (08:57→20:19)
[2021-11-29] MEDS: Gabapentin 300 MG CAPSULE PO ×2 (08:57→15:26)
[2021-11-29] MEDS: Folic Acid 1 MG TABLET PO (08:58)
[2021-11-29] MEDS: Benztropine Mesylate 0.5 MG TABLET PO ×2 (08:58→20:20)
[2021-11-29] MEDS: Thiamine HCL 100 MG TABLET PO (08:58)
[2021-11-29] MEDS: QUEtiapine Fumarate 100 MG TABLET PO ×2 (10:27→16:12)
--- NOTE | 2021-11-29 13:15 | MHC.RECOVRN ---
Met with pt in 307 around 1300 to check in regarding transition to Suboxone. Pt in bed, awake, alert engaged. Pt visibly anxious, reporting frustration with moving units. Pt reporting desire to return to M5. Pt received one 4/1 mg film this morning and one at noon. Methadone has been discontinued. Pt reporting diarrhea, vomiting, sweating. Does have rhinorrhea. Pt states I NEED more. I do 30 bags a day. I don't know why they aren't giving me more. T/w reinforced education regarding transition from methadone to Suboxone. Discussed with Santa Alcaraz APRN.
--- NOTE | 2021-11-29 14:18 | P.PNPSI_ITS ---
Subjective Subjective Date of Service: 11/29/21 Reason For Visit: si, depression Subjective Notes: Conditional Voluntary Interim History: Pt continues to have episodes of yelling at staff due to low frustration tolerance. Pt has some insight in that later she notes she does not want to react this way when feeling frustrated, but not having much control over reactions. Pt reports sleeping better. She denies SI/HI. She continues to present as dysphoric but to lesser extent. She reports seroquel helpful and agrees to increase to further target mood/dysphoria. Pt explained that due to new outbreak of covid in hospital food in unit limited but also the fact that as her suboxone is titrated concern over BF bringing contraband. Pt showed understanding. Diagnostics Vital Signs (24Hr): Vital Signs - 24 hr 11/28/21 20:30 11/28/21 22:09 11/29/21 06:00 Temperature 98.7 F 98.1 F Pulse Rate 111 H 110 H 98 Respiratory Rate 18 Blood Pressure 126/72 127/70 126/57 L Pulse Oximetry 97 96 11/29/21 08:57 11/29/21 15:26 Temperature Pulse Rate 98 107 H Respiratory Rate Blood Pressure 126/57 L 128/79 Pulse Oximetry BMI result Body Mass Index 21.0 Labs Labs: Laboratory Results - last 48 hr 11/27/21 10:45 HIV 1&2 Ab/P24 Ag 4thGn Nonreactive Medications Medications Current Medications Acetaminophen (Acetaminophen 325 Mg Tablet) 650 mg PO Q6H PRN PRN Reason: Headache/Pain Mild Scale (1-3) Last Admin: 11/28/21 20:49 Dose: 650 mg Documented by: Al Hydroxide/Mg Hydroxide (Magnesium Hydrox/Alum Hydrox 30 Ml Oral.Susp) 30 ml PO Q6H PRN PRN Reason: Heartburn/Nausea Last Admin: 11/24/21 20:03 Dose: 30 ml Documented by: Benzocaine (Throat Lozenge, Medicated Lozenge) 1 lozenge MUCOUS MEM Q2H PRN PRN Reason: Sore Throat Last Admin: 11/26/21 08:38 Dose: 1 lozenge Documented by: Benztropine Mesylate (Benztropine Mesylate 0.5 Mg Tablet) 0.5 mg PO BID [facility] Last Admin: 11/29/21 08:58 Dose: 0.5 mg Documented by: Clonidine HCl (Clonidine Hcl 0.1 Mg Tablet) 0.1 mg PO TID PRN; Protocol PRN Reason: hyperarousal Last Admin: 11/28/21 08:09 Dose: 0.1 mg Documented by: Famotidine (Famotidine 20 Mg Tablet) 20 mg PO BID [facility] Last Admin: 11/29/21 08:57 Dose: 20 mg Documented by: Folic Acid (Folic Acid 1 Mg Tablet) 1 mg PO DAILY [facility] Last Admin: 11/29/21 08:58 Dose: 1 mg Documented by: Gabapentin (Gabapentin 300 Mg Capsule) 600 mg PO TID [facility] Loperamide HCl (Loperamide Hcl 2 Mg Capsule) 2 mg PO Q4H PRN PRN Reason: loose stools Last Admin: 11/27/21 19:05 Dose: 2 mg Documented by: Lorazepam (Lorazepam 1 Mg Tablet) 1 mg PO Q6H PRN PRN Reason: Anxiety Last Admin: 11/28/21 20:49 Dose: 1 mg Documented by: Magnesium Hydroxide (Milk Of Magnesia 30 Ml Oral.Susp) 30 ml PO DAILY PRN PRN Reason: Constipation Multivitamins/Vitamin C (Multivitamin Tablet) 1 tab PO DAILY [facility] Last Admin: 11/29/21 08:57 Dose: 1 tab Documented by: Nicotine Polacrilex (Nicotine Polacrilex 2 Mg Gum) 4 mg BUCCAL Q2H PRN PRN Reason: Nicotine Cravings Last Admin: 11/28/21 09:43 Dose: 4 mg Documented by: Propranolol HCl (Propranolol Hcl 10 Mg Tablet) 10 mg PO TID [facility]; Protocol Last Admin: 11/29/21 15:26 Dose: 10 mg Documented by: Quetiapine Fumarate (Quetiapine Fumarate 100 Mg Tablet) 100 mg PO Q6H PRN PRN Reason: agitation Last Admin: 11/29/21 16:12 Dose: 100 mg Documented by: Quetiapine Fumarate (Quetiapine Fumarate 200 Mg Tablet) 200 mg PO BEDTIME [facility] Quetiapine Fumarate (Quetiapine Fumarate 100 Mg Tablet) 100 mg PO DAILY [facility] Thiamine HCl (Thiamine Hcl 100 Mg Tablet) 100 mg PO DAILY [facility] Last Admin: 11/29/21 08:58 Dose: 100 mg Documented by: Trazodone HCl (Trazodone Hcl 50 Mg Tablet) 50 mg PO BEDTIME PRN PRN Reason: Insomnia Last Admin: 11/28/21 22:14 Dose: 50 mg Documented by: Allergies Allergies Allergy/AdvReac Type Severity Reaction Status Date / Time No Known Allergies Allergy Verified 03/07/21 14:26 Assessment & Plan Assessment & Plan (1) Cocaine use disorder: Status: Acute Code(s): F14.10 - Cocaine abuse, uncomplicated (2) Alcohol use disorder, severe, dependence: Status: Acute Code(s): F10.20 - Alcohol dependence, uncomplicated (3) Opioid use disorder, moderate, dependence: Status: Acute Code(s): F11.20 - Opioid dependence, uncomplicated (4) JOANN (generalized anxiety disorder): Status: Acute Code(s): F41.1 - Generalized anxiety disorder (5) MDD (major depressive disorder), recurrent episode, moderate: Status: Acute Code(s): F33.1 - Major depressive disorder, recurrent, moderate Assessment and Plan: Bella is a 31 y.o. Female who carries a dx of MDD, recurrent episode, JOANN, polysubstance abuse, and severe alcohol abuse. She has co-morbid diagnosis of hepatitis C. She [place] [facility] [place] reporting depression and withdrawal sx after binging on multiple drugs and alcohol for the last 2-3 months. Hospitalist put in psych consult for disposition due to concerns with pt making suicidal statements and demonstrating high risk behaviors. PLAN: 1. Increase gabapentin 600mg po TID; increase seroquel to 100mg po daily and 200mg po qhs for mood stabilization. 2. continue propanolol 10mg po TID 2. coordinate aftercare plan- pt will continue suboxone, OP psych tx. ? I spent minutes with the patient and/or on the patient floor today, greater than?50% of which was spent counseling/coordinating care. Reason for contiued inpatient stay Substantial Risk for: inability to function
[2021-11-29 15:26] VITALS: BP 128/79; PULSE 107
[2021-11-29 18:00] VITALS: BP 124/63; PULSE 96; RESP 16; TEMP 36.8
[2021-11-29] MEDS: QUEtiapine Fumarate 200 MG TABLET PO (20:18)
[2021-11-29] MEDS: Gabapentin 300 MG CAPSULE 600 MG PO (20:19)
[2021-11-29 20:20] VITALS: BP 124/63; PULSE 96
[2021-11-29] MEDS: LORazepam 1 MG TABLET PO (21:38)
[2021-11-29] MEDS: Milk of Magnesia 30 ML ORAL.SUSP PO (21:40)
[2021-11-30] MEDS: Acetaminophen 325 MG TABLET 650 MG PO (02:42)
[2021-11-30] MEDS: traZODone HCL 50 MG TABLET PO (02:42)
[2021-11-30 08:15] VITALS: BP 106/60; PULSE 98; RESP 18; TEMP 36.7; O2SAT 98
[2021-11-30 08:21] VITALS: BP 106/60; PULSE 98
[2021-11-30] MEDS: Gabapentin 300 MG CAPSULE 600 MG PO ×3 (08:21→21:51)
[2021-11-30] MEDS: Buprenorphine/Naloxone 8/2 mg FILM 1 FILM SUBLINGUAL ×2 (08:21→20:07)
[2021-11-30] MEDS: Propranolol HCL 10 MG TABLET PO ×3 (08:21→21:51)
[2021-11-30] MEDS: Multivitamin TABLET 1 TAB PO (08:21)
[2021-11-30] MEDS: Famotidine 20 MG TABLET PO ×2 (08:21→21:53)
[2021-11-30] MEDS: Folic Acid 1 MG TABLET PO (08:22)
[2021-11-30] MEDS: Benztropine Mesylate 0.5 MG TABLET PO ×2 (08:22→21:51)
[2021-11-30] MEDS: QUEtiapine Fumarate 100 MG TABLET PO ×4 (08:22→20:11)
[2021-11-30] MEDS: Thiamine HCL 100 MG TABLET PO (08:22)
--- NOTE | 2021-11-30 13:17 | P.PNPSI_ITS ---
Subjective Subjective Date of Service: 11/30/21 Reason For Visit: si, depression Subjective Notes: Conditional Voluntary Healthcare Proxy: No Guardianship: No Interim History: Patient continues with complaints of mood instability irritability and reactivity. Given literature regarding bipolar disorder. Patient feels Seroquel helpful but has gained significant weight Medication Compliance: Yes Attending Groups: Intermittent Mental Status Exam Mental Status Exam Narrative: A&O. Pt is in casual attire, unkempt appearance, psychomotor restlessness. Moderate eye contact, attentive. No Tics or Tremors. No abnormal involuntary movements. Labile, agitated, tearful at times but overall cooperative. mildly pressured speech, spontaneous with regular rate and rhythm, normal volume and prosody. No prolonged speech latency or dysarthria. Mood is ?angry,? affect is agitated. Denies SI/SIB/HI upon inquiry. Denies A/VH or delusional thought content. Thoughts are coherent, organized. . Insight/ Judgment limited by substance use urges. Diagnostics Vital Signs (24Hr): Vital Signs - 24 hr 11/29/21 15:26 11/29/21 18:00 11/29/21 20:20 Temperature 98.3 F Pulse Rate 107 H 96 96 Respiratory Rate 16 Blood Pressure 128/79 124/63 124/63 Pulse Oximetry 11/30/21 08:15 11/30/21 08:21 Temperature 98.0 F Pulse Rate 98 98 Respiratory Rate 18 Blood Pressure 106/60 106/60 Pulse Oximetry 98 BMI result Body Mass Index 24.5 Medications Medications Current Medications Acetaminophen (Acetaminophen 325 Mg Tablet) 650 mg PO Q6H PRN PRN Reason: Headache/Pain Mild Scale (1-3) Last Admin: 11/30/21 02:42 Dose: 650 mg Documented by: Al Hydroxide/Mg Hydroxide (Magnesium Hydrox/Alum Hydrox 30 Ml Oral.Susp) 30 ml PO Q6H PRN PRN Reason: Heartburn/Nausea Last Admin: 11/24/21 20:03 Dose: 30 ml Documented by: Benzocaine (Throat Lozenge, Medicated Lozenge) 1 lozenge MUCOUS MEM Q2H PRN PRN Reason: Sore Throat Last Admin: 11/26/21 08:38 Dose: 1 lozenge Documented by: Benztropine Mesylate (Benztropine Mesylate 0.5 Mg Tablet) 0.5 mg PO BID [facility] Last Admin: 11/30/21 08:22 Dose: 0.5 mg Documented by: Buprenorphine/Naloxone (Buprenorphine/Naloxone 8/2 Mg Film) 1 film SUBLINGUAL BID [facility] Last Admin: 11/30/21 08:21 Dose: 1 film Documented by: Clonidine HCl (Clonidine Hcl 0.1 Mg Tablet) 0.1 mg PO TID PRN; Protocol PRN Reason: hyperarousal Last Admin: 11/28/21 08:09 Dose: 0.1 mg Documented by: Famotidine (Famotidine 20 Mg Tablet) 20 mg PO BID [facility] Last Admin: 11/30/21 08:21 Dose: 20 mg Documented by: Folic Acid (Folic Acid 1 Mg Tablet) 1 mg PO DAILY [facility] Last Admin: 11/30/21 08:22 Dose: 1 mg Documented by: Gabapentin (Gabapentin 300 Mg Capsule) 600 mg PO TID [facility] Last Admin: 11/30/21 08:21 Dose: 600 mg Documented by: Loperamide HCl (Loperamide Hcl 2 Mg Capsule) 2 mg PO Q4H PRN PRN Reason: loose stools Last Admin: 11/27/21 19:05 Dose: 2 mg Documented by: Lorazepam (Lorazepam 1 Mg Tablet) 1 mg PO Q6H PRN PRN Reason: Anxiety Last Admin: 11/29/21 21:38 Dose: 1 mg Documented by: Magnesium Hydroxide (Milk Of Magnesia 30 Ml Oral.Susp) 30 ml PO DAILY PRN PRN Reason: Constipation Last Admin: 11/29/21 21:40 Dose: 30 ml Documented by: Multivitamins/Vitamin C (Multivitamin Tablet) 1 tab PO DAILY [facility] Last Admin: 11/30/21 08:21 Dose: 1 tab Documented by: Nicotine Polacrilex (Nicotine Polacrilex 2 Mg Gum) 4 mg BUCCAL Q2H PRN PRN Reason: Nicotine Cravings Last Admin: 11/28/21 09:43 Dose: 4 mg Documented by: Propranolol HCl (Propranolol Hcl 10 Mg Tablet) 10 mg PO TID [facility]; Protocol Last Admin: 11/30/21 08:21 Dose: 10 mg Documented by: Quetiapine Fumarate (Quetiapine Fumarate 100 Mg Tablet) 100 mg PO Q6H PRN PRN Reason: agitation Last Admin: 11/30/21 12:07 Dose: 100 mg Documented by: Quetiapine Fumarate (Quetiapine Fumarate 200 Mg Tablet) 200 mg PO BEDTIME [facility] Last Admin: 11/29/21 20:18 Dose: 200 mg Documented by: Quetiapine Fumarate (Quetiapine Fumarate 100 Mg Tablet) 100 mg PO DAILY [facility] Last Admin: 11/30/21 08:22 Dose: 100 mg Documented by: Thiamine HCl (Thiamine Hcl 100 Mg Tablet) 100 mg PO DAILY [facility] Last Admin: 11/30/21 08:22 Dose: 100 mg Documented by: Trazodone HCl (Trazodone Hcl 50 Mg Tablet) 50 mg PO BEDTIME PRN PRN Reason: Insomnia Last Admin: 11/30/21 02:42 Dose: 50 mg Documented by: Allergies Allergies Allergy/AdvReac Type Severity Reaction Status Date / Time No Known Allergies Allergy Verified 03/07/21 14:26 Assessment & Plan Assessment & Plan (1) Cocaine use disorder: Status: Acute Code(s): F14.10 - Cocaine abuse, uncomplicated (2) Alcohol use disorder, severe, dependence: Status: Acute Code(s): F10.20 - Alcohol dependence, uncomplicated (3) Opioid use disorder, moderate, dependence: Status: Acute Code(s): F11.20 - Opioid dependence, uncomplicated (4) JOANN (generalized anxiety disorder): Status: Acute Code(s): F41.1 - Generalized anxiety disorder (5) MDD (major depressive disorder), recurrent episode, moderate: Status: Acute Code(s): F33.1 - Major depressive disorder, recurrent, moderate Assessment and Plan: Bella is a 31 y.o. Female who carries a dx of MDD, recurrent episode, JOANN, polysubstance abuse, and severe alcohol abuse. She has co-morbid diagnosis of hepatitis C. She presented to [facility] ED 11/22/21 reporting depression and withdrawal sx after binging on multiple drugs and alcohol for the last 2-3 months. Hospitalist put in psych consult for disposition due to concerns with pt making suicidal statements and demonstrating high risk behaviors. PLAN: 1. Increase gabapentin 600mg po TID; increase seroquel to 100mg po daily and 200mg po qhs for mood stabilization. 2. continue propanolol 10mg po TID 2. coordinate aftercare plan- pt will continue suboxone, OP psych tx. 11/20/2022 Patient will review material on bipolar disorder consider Depakote Tegretol Seroquel causing increased weight gain ? I spent minutes with the patient and/or on the patient floor today, greater than?50% of which was spent counseling/coordinating care. Reason for contiued inpatient stay Substantial Risk for: inability to function and rapid decompensation
[2021-11-30 14:35] VITALS: BP 134/60; PULSE 107
[2021-11-30 21:48] VITALS: BP 121/60; PULSE 100; TEMP 36.9; O2SAT 98
[2021-11-30 21:51] VITALS: BP 121/60; PULSE 100
[2021-11-30] MEDS: QUEtiapine Fumarate 200 MG TABLET PO (21:51)
[2021-12-01] MEDS: traZODone HCL 50 MG TABLET PO ×2 (00:26→21:36)
[2021-12-01 08:30] VITALS: BP 118/56; PULSE 99; RESP 16; TEMP 36.3; O2SAT 98
[2021-12-01] MEDS: Folic Acid 1 MG TABLET PO (08:33)
[2021-12-01] MEDS: Buprenorphine/Naloxone 8/2 mg FILM 1 FILM SUBLINGUAL ×2 (08:33→20:29)
[2021-12-01 08:34] VITALS: BP 118/56; PULSE 99
[2021-12-01] MEDS: Propranolol HCL 10 MG TABLET PO ×3 (08:34→21:37)
[2021-12-01] MEDS: Thiamine HCL 100 MG TABLET PO (08:34)
[2021-12-01] MEDS: Gabapentin 300 MG CAPSULE 600 MG PO ×3 (08:34→21:36)
[2021-12-01] MEDS: Benztropine Mesylate 0.5 MG TABLET PO ×2 (08:34→21:37)
[2021-12-01] MEDS: Multivitamin TABLET 1 TAB PO (08:34)
[2021-12-01] MEDS: Famotidine 20 MG TABLET PO ×2 (08:34→21:37)
[2021-12-01] MEDS: QUEtiapine Fumarate 100 MG TABLET PO ×2 (08:36→13:06)
[2021-12-01 14:28] VITALS: BP 137/66; PULSE 105
[2021-12-01] MEDS: Acetaminophen 325 MG TABLET 650 MG PO (14:28)
[2021-12-01 17:33] VITALS: BP 108/62; PULSE 92
[2021-12-01] MEDS: cloNIDine HCL 0.1 MG TABLET PO (17:33)
[2021-12-01] MEDS: Milk of Magnesia 30 ML ORAL.SUSP PO (21:15)
[2021-12-01] MEDS: QUEtiapine Fumarate 200 MG TABLET PO (21:36)
[2021-12-01 21:37] VITALS: BP 115/70; PULSE 86
[2021-12-01 21:41] VITALS: BP 115/70; PULSE 86; TEMP 37.1; O2SAT 95
--- NOTE | 2021-12-01 22:44 | HO.PSYCHPN ---
Subjective Subjective Date of Service: 12/01/21 Reason For Visit: si, depression Subjective Notes: Conditional Voluntary Interim History: Patient anxious and ruminating reviewed bipolar diagnosis reviewed different treatment options case reviewed with nursing staff patient seen withdrawal symptoms in control Medication Compliance: Yes Review of Systems Acute medical concerns: No Medical Review of Systems: unchanged Mental Status Exam Mental Status Exam Narrative: A&O. Pt is in casual attire, unkempt appearance, psychomotor restlessness. Moderate eye contact, attentive. No Tics or Tremors. No abnormal involuntary movements. Labile, agitated, tearful at times but overall cooperative. mildly pressured speech. No prolonged speech latency or dysarthria. Mood is anxious,? affect is agitated. Denies SI/SIB/HI upon inquiry. Denies A/VH or delusional thought content. Thoughts are coherent, organized. . Insight/ Judgment adequate it in this setting. Diagnostics Vital Signs (24Hr): Vital Signs - 24 hr 12/01/21 08:30 12/01/21 08:34 12/01/21 14:28 Temperature 97.3 F Pulse Rate 99 99 105 H Respiratory Rate 16 Blood Pressure 118/56 L 118/56 L 137/66 Pulse Oximetry 98 12/01/21 17:33 12/01/21 21:37 12/01/21 21:41 Temperature 98.7 F Pulse Rate 92 86 86 Respiratory Rate Blood Pressure 108/62 115/70 115/70 Pulse Oximetry 95 BMI result Body Mass Index 24.5 Medications Medications Current Medications Acetaminophen (Acetaminophen 325 Mg Tablet) 650 mg PO Q6H PRN PRN Reason: Headache/Pain Mild Scale (1-3) Last Admin: 12/01/21 14:28 Dose: 650 mg Documented by: Al Hydroxide/Mg Hydroxide (Magnesium Hydrox/Alum Hydrox 30 Ml Oral.Susp) 30 ml PO Q6H PRN PRN Reason: Heartburn/Nausea Last Admin: 11/24/21 20:03 Dose: 30 ml Documented by: Benzocaine (Throat Lozenge, Medicated Lozenge) 1 lozenge MUCOUS MEM Q2H PRN PRN Reason: Sore Throat Last Admin: 11/26/21 08:38 Dose: 1 lozenge Documented by: Benztropine Mesylate (Benztropine Mesylate 0.5 Mg Tablet) 0.5 mg PO BID [facility] Last Admin: 12/01/21 21:37 Dose: 0.5 mg Documented by: Buprenorphine/Naloxone (Buprenorphine/Naloxone 8/2 Mg Film) 1 film SUBLINGUAL BID [facility] Last Admin: 12/01/21 20:29 Dose: 1 film Documented by: Clonidine HCl (Clonidine Hcl 0.1 Mg Tablet) 0.1 mg PO TID PRN; Protocol PRN Reason: hyperarousal Last Admin: 12/01/21 17:33 Dose: 0.1 mg Documented by: Famotidine (Famotidine 20 Mg Tablet) 20 mg PO BID [facility] Last Admin: 12/01/21 21:37 Dose: 20 mg Documented by: Folic Acid (Folic Acid 1 Mg Tablet) 1 mg PO DAILY [facility] Last Admin: 12/01/21 08:33 Dose: 1 mg Documented by: Gabapentin (Gabapentin 300 Mg Capsule) 600 mg PO TID [facility] Last Admin: 12/01/21 21:36 Dose: 600 mg Documented by: Loperamide HCl (Loperamide Hcl 2 Mg Capsule) 2 mg PO Q4H PRN PRN Reason: loose stools Last Admin: 11/27/21 19:05 Dose: 2 mg Documented by: Lorazepam (Lorazepam 1 Mg Tablet) 1 mg PO Q6H PRN PRN Reason: Anxiety Last Admin: 11/29/21 21:38 Dose: 1 mg Documented by: Magnesium Hydroxide (Milk Of Magnesia 30 Ml Oral.Susp) 30 ml PO DAILY PRN PRN Reason: Constipation Last Admin: 12/01/21 21:15 Dose: 30 ml Documented by: Multivitamins/Vitamin C (Multivitamin Tablet) 1 tab PO DAILY [facility] Last Admin: 12/01/21 08:34 Dose: 1 tab Documented by: Nicotine Polacrilex (Nicotine Polacrilex 2 Mg Gum) 4 mg BUCCAL Q2H PRN PRN Reason: Nicotine Cravings Last Admin: 11/28/21 09:43 Dose: 4 mg Documented by: Propranolol HCl (Propranolol Hcl 10 Mg Tablet) 10 mg PO TID [facility]; Protocol Last Admin: 12/01/21 21:37 Dose: 10 mg Documented by: Quetiapine Fumarate (Quetiapine Fumarate 100 Mg Tablet) 100 mg PO Q6H PRN PRN Reason: agitation Last Admin: 12/01/21 13:06 Dose: 100 mg Documented by: Quetiapine Fumarate (Quetiapine Fumarate 200 Mg Tablet) 200 mg PO BEDTIME [facility] Last Admin: 12/01/21 21:36 Dose: 200 mg Documented by: Quetiapine Fumarate (Quetiapine Fumarate 100 Mg Tablet) 100 mg PO DAILY [facility] Last Admin: 12/01/21 08:36 Dose: 100 mg Documented by: Thiamine HCl (Thiamine Hcl 100 Mg Tablet) 100 mg PO DAILY [facility] Last Admin: 12/01/21 08:34 Dose: 100 mg Documented by: Trazodone HCl (Trazodone Hcl 50 Mg Tablet) 50 mg PO BEDTIME PRN PRN Reason: Insomnia Last Admin: 12/01/21 21:36 Dose: 50 mg Documented by: Allergies Allergies Allergy/AdvReac Type Severity Reaction Status Date / Time No Known Allergies Allergy Verified 03/07/21 14:26 Assessment & Plan Assessment & Plan (1) Cocaine use disorder: Status: Acute Code(s): F14.10 - Cocaine abuse, uncomplicated (2) Alcohol use disorder, severe, dependence: Status: Acute Code(s): F10.20 - Alcohol dependence, uncomplicated (3) Opioid use disorder, moderate, dependence: Status: Acute Code(s): F11.20 - Opioid dependence, uncomplicated (4) JOANN (generalized anxiety disorder): Status: Acute Code(s): F41.1 - Generalized anxiety disorder (5) MDD (major depressive disorder), recurrent episode, moderate: Status: Acute Code(s): F33.1 - Major depressive disorder, recurrent, moderate Assessment and Plan: Bella is a 31 y.o. Female who carries a dx of MDD, recurrent episode, JOANN, polysubstance abuse, and severe alcohol abuse. She has co-morbid diagnosis of hepatitis C. She presented to [facility] 11/22/21 reporting depression and withdrawal sx after binging on multiple drugs and alcohol for the last 2-3 months. Hospitalist put in psych consult for disposition due to concerns with pt making suicidal statements and demonstrating high risk behaviors. PLAN: 1. Increase gabapentin 600mg po TID; increase seroquel to 100mg po daily and 200mg po qhs for mood stabilization. 2. continue propanolol 10mg po TID 2. coordinate aftercare plan- pt will continue suboxone, OP psych tx. 11/30/2021 Patient will review material on bipolar disorder consider Depakote Tegretol Seroquel causing increased weight gain 12/01/2021 Reviewed literature regarding bipolar disorder somewhat difficult to diagnose the context of substance abuse but patient with strong family history does appear to describe great to for bipolar 2. Patient feels Suboxone helpful has gained significant weight Seroquel discussed tapering Seroquel and aching lamotrigine for bipolar disorder risks benefits alternatives reviewed taper Seroquel discussed option of partial hospital. Discharge planning monitor safety monitor response to medication ? I spent minutes with the patient and/or on the patient floor today, greater than?50% of which was spent counseling/coordinating care. Reason for contiued inpatient stay Substantial Risk for: harm to self and rapid decompensation
[2021-12-02] VITALS (9 sets, daily range): BP systolic 108–119; BP diastolic 54–72; PULSE 65–104; RESP 16–18; TEMP 36.1–36.9; O2SAT 95–98
[2021-12-02] MEDS: traZODone HCL 50 MG TABLET PO ×3 (01:53→23:13)
[2021-12-02] MEDS: Acetaminophen 325 MG TABLET 650 MG PO (06:52)
[2021-12-02] MEDS: Buprenorphine/Naloxone 8/2 mg FILM 1 FILM SUBLINGUAL ×2 (08:50→20:41)
[2021-12-02] MEDS: Gabapentin 300 MG CAPSULE 600 MG PO ×3 (08:51→20:39)
[2021-12-02] MEDS: Thiamine HCL 100 MG TABLET PO (08:51)
[2021-12-02] MEDS: Benztropine Mesylate 0.5 MG TABLET PO ×2 (08:51→20:39)
[2021-12-02] MEDS: Multivitamin TABLET 1 TAB PO (08:51)
[2021-12-02] MEDS: Famotidine 20 MG TABLET PO ×2 (08:51→20:39)
[2021-12-02] MEDS: Folic Acid 1 MG TABLET PO (08:52)
[2021-12-02] MEDS: QUEtiapine Fumarate 100 MG TABLET PO ×2 (09:21→14:31)
[2021-12-02] MEDS: Propranolol HCL 10 MG TABLET PO ×3 (09:49→20:47)
[2021-12-02] MEDS: Nicotine Polacrilex 2 MG GUM 4 MG BUCCAL (12:30)
[2021-12-02] MEDS: cloNIDine HCL 0.1 MG TABLET PO ×2 (12:31→16:33)
[2021-12-02] MEDS: Milk of Magnesia 30 ML ORAL.SUSP PO (16:16)
[2021-12-02] MEDS: lamoTRIgine 25 MG TABLET PO (20:39)
[2021-12-02] MEDS: QUEtiapine Fumarate 200 MG TABLET PO (20:39)
[2021-12-02] MEDS: Docusate Sodium 100 MG CAPSULE 200 MG PO (21:24)
--- NOTE | 2021-12-02 22:38 | P.PNPSI_ITS ---
Subjective Subjective Date of Service: 12/02/21 Reason For Visit: si, depression Subjective Notes: Conditional Voluntary Healthcare Proxy: No Guardianship: No Interim History: Patient with periods of irritability reactivity reviewed literature Medication Compliance: Yes Side effects from medications: No Review of Systems Acute medical concerns: No Medical Review of Systems: unchanged Mental Status Exam Mental Status Exam Patient Appearance: Appropriate Level of Consciousness: Awake Patient Behavior: Hyperactive and Restless Mood Description: Anxious and Labile Affect Description: Labile and Apprehensive Patient Cognition Impaired: No Memory Description: Intact Hallucinations: None Delusions: Not Present Thought Process: Intact Depressive Symptoms: Increased Anxiety and Increased Irritability Judgement: Fair Diagnostics Vital Signs (24Hr): Vital Signs - 24 hr 12/02/21 06:00 12/02/21 09:42 12/02/21 09:49 Temperature 97.0 F Pulse Rate 77 104 H 104 H Respiratory Rate 16 Blood Pressure 115/54 L 111/72 111/72 Pulse Oximetry 95 12/02/21 12:31 12/02/21 14:31 12/02/21 16:33 Temperature Pulse Rate 65 92 93 Respiratory Rate Blood Pressure 108/59 L 119/59 L 108/57 L Pulse Oximetry 12/02/21 18:00 12/02/21 20:45 12/02/21 20:47 Temperature 98.1 F 98.5 F Pulse Rate 93 92 92 Respiratory Rate 18 17 Blood Pressure 108/57 L 109/57 L 109/57 L Pulse Oximetry 98 98 BMI result Body Mass Index 24.5 Medications Medications Current Medications Acetaminophen (Acetaminophen 325 Mg Tablet) 650 mg PO Q6H PRN PRN Reason: Headache/Pain Mild Scale (1-3) Last Admin: 12/02/21 06:52 Dose: 650 mg Documented by: Al Hydroxide/Mg Hydroxide (Magnesium Hydrox/Alum Hydrox 30 Ml Oral.Susp) 30 ml PO Q6H PRN PRN Reason: Heartburn/Nausea Last Admin: 11/24/21 20:03 Dose: 30 ml Documented by: Benzocaine (Throat Lozenge, Medicated Lozenge) 1 lozenge MUCOUS MEM Q2H PRN PRN Reason: Sore Throat Last Admin: 11/26/21 08:38 Dose: 1 lozenge Documented by: Benztropine Mesylate (Benztropine Mesylate 0.5 Mg Tablet) 0.5 mg PO BID [facility] Last Admin: 12/02/21 20:39 Dose: 0.5 mg Documented by: Buprenorphine/Naloxone (Buprenorphine/Naloxone 8/2 Mg Film) 1 film SUBLINGUAL BID [facility] Last Admin: 12/02/21 20:41 Dose: 1 film Documented by: Clonidine HCl (Clonidine Hcl 0.1 Mg Tablet) 0.1 mg PO TID PRN; Protocol PRN Reason: hyperarousal Last Admin: 12/02/21 16:33 Dose: 0.1 mg Documented by: Docusate Sodium (Docusate Sodium 100 Mg Capsule) 200 mg PO BEDTIME PRN PRN Reason: constipation Last Admin: 12/02/21 21:24 Dose: 200 mg Documented by: Famotidine (Famotidine 20 Mg Tablet) 20 mg PO BID [facility] Last Admin: 12/02/21 20:39 Dose: 20 mg Documented by: Folic Acid (Folic Acid 1 Mg Tablet) 1 mg PO DAILY [facility] Last Admin: 12/02/21 08:52 Dose: 1 mg Documented by: Gabapentin (Gabapentin 300 Mg Capsule) 600 mg PO TID [facility] Last Admin: 12/02/21 20:39 Dose: 600 mg Documented by: Lamotrigine (Lamotrigine 25 Mg Tablet) 25 mg PO BEDTIME [facility] Last Admin: 12/02/21 20:39 Dose: 25 mg Documented by: Loperamide HCl (Loperamide Hcl 2 Mg Capsule) 2 mg PO Q4H PRN PRN Reason: loose stools Last Admin: 11/27/21 19:05 Dose: 2 mg Documented by: Magnesium Hydroxide (Milk Of Magnesia 30 Ml Oral.Susp) 30 ml PO DAILY PRN PRN Reason: Constipation Last Admin: 12/02/21 16:16 Dose: 30 ml Documented by: Multivitamins/Vitamin C (Multivitamin Tablet) 1 tab PO DAILY [facility] Last Admin: 12/02/21 08:51 Dose: 1 tab Documented by: Nicotine Polacrilex (Nicotine Polacrilex 2 Mg Gum) 4 mg BUCCAL Q2H PRN PRN Reason: Nicotine Cravings Last Admin: 12/02/21 12:30 Dose: 4 mg Documented by: Propranolol HCl (Propranolol Hcl 10 Mg Tablet) 10 mg PO TID [facility]; Protocol Last Admin: 12/02/21 20:47 Dose: 10 mg Documented by: Quetiapine Fumarate (Quetiapine Fumarate 100 Mg Tablet) 100 mg PO Q6H PRN PRN Reason: agitation Last Admin: 12/02/21 14:31 Dose: 100 mg Documented by: Quetiapine Fumarate (Quetiapine Fumarate 200 Mg Tablet) 200 mg PO BEDTIME [facility] Last Admin: 12/02/21 20:39 Dose: 200 mg Documented by: Thiamine HCl (Thiamine Hcl 100 Mg Tablet) 100 mg PO DAILY [facility] Last Admin: 12/02/21 08:51 Dose: 100 mg Documented by: Trazodone HCl (Trazodone Hcl 50 Mg Tablet) 50 mg PO BEDTIME PRN PRN Reason: Insomnia Last Admin: 12/02/21 21:24 Dose: 50 mg Documented by: Allergies Allergies Allergy/AdvReac Type Severity Reaction Status Date / Time No Known Allergies Allergy Verified 03/07/21 14:26 Assessment & Plan Assessment & Plan (1) Bipolar 2 disorder: Status: Acute Code(s): F31.81 - Bipolar II disorder (2) Cocaine use disorder: Status: Acute Code(s): F14.10 - Cocaine abuse, uncomplicated (3) Opioid use disorder: Status: Acute Code(s): F11.90 - Opioid use, unspecified, uncomplicated Assessment and Plan: Bella is a 31 y.o. Female who carries a dx of MDD, recurrent episode, JOANN, polysubstance abuse, and severe alcohol abuse. She has co-morbid diagnosis of hepatitis C. She presented to [facility] 11/22/21 reporting depression and withdrawal sx after binging on multiple drugs and alcohol for the last 2-3 months. Hospitalist put in psych consult for disposition due to concerns with pt making suicidal statements and demonstrating high risk behaviors. PLAN: 1. Increase gabapentin 600mg po TID; increase seroquel to 100mg po daily and 200mg po qhs for mood stabilization. 2. continue propanolol 10mg po TID 2. coordinate aftercare plan- pt will continue suboxone, OP psych tx. 11/30/2021 Patient will review material on bipolar disorder consider Depakote Tegretol Seroquel causing increased weight gain 12/01/2021 Reviewed literature regarding bipolar disorder somewhat difficult to diagnose the context of substance abuse but patient with strong family history does appear to describe great to for bipolar 2. Patient feels Suboxone helpful has gained significant weight Seroquel discussed tapering Seroquel and aching lamotrigine for bipolar disorder risks benefits alternatives reviewed taper Seroquel discussed option of partial hospital. Discharge planning monitor safety monitor response to medication 12/02/2021 Patient seen in psychiatric follow-up chart reviewed patient seen. Case reviewed with nursing staff. Patient gives history of difficulty with attention followed through distractibility worsening over the past 2 years with cocaine and alcohol use No clear history of learning disabilities but difficulty in school never followed through did homework. History of mood instability but difficult to assess with cocaine and alcohol abuse. Patient reviewed bipolar literature we discussed use of lamotrigine try and taper Seroquel secondary to weight gain might benefit from PHP IOP versus substance program diagnosis should be clarified over time question of bipolar 2 disorder PTSD probable ADHD consider Tenex consider Pamela I spent minutes with the patient and/or on the patient floor today, greater than?50% of which was spent counseling/coordinating care. Reason for contiued inpatient stay Substantial Risk for: harm to self and rapid decompensation
[2021-12-03 08:00] VITALS: BP 135/77; PULSE 92; TEMP 36.6; O2SAT 97
[2021-12-03 08:36] VITALS: BP 135/77; PULSE 92
[2021-12-03] MEDS: Buprenorphine/Naloxone 8/2 mg FILM 1 FILM SUBLINGUAL ×2 (08:36→16:22)
[2021-12-03] MEDS: Benztropine Mesylate 0.5 MG TABLET PO (08:36)
[2021-12-03] MEDS: Thiamine HCL 100 MG TABLET PO (08:36)
[2021-12-03] MEDS: Propranolol HCL 10 MG TABLET PO ×3 (08:36→21:01)
[2021-12-03] MEDS: Gabapentin 300 MG CAPSULE 600 MG PO ×3 (08:36→21:00)
[2021-12-03] MEDS: Folic Acid 1 MG TABLET PO (08:36)
[2021-12-03] MEDS: Multivitamin TABLET 1 TAB PO (08:36)
[2021-12-03] MEDS: Famotidine 20 MG TABLET PO ×2 (08:37→21:00)
[2021-12-03] MEDS: QUEtiapine Fumarate 100 MG TABLET PO ×2 (09:27→12:53)
--- NOTE | 2021-12-03 10:07 | P.PNPSI_ITS ---
Subjective Subjective Date of Service: 12/03/21 Reason For Visit: si, depression Subjective Notes: Conditional Voluntary Interim History: Pt seen with JESSE Plasencia. Pt reports overall feeling less reactive, less overwhelmed. Pt continues to report easily frustrated at times and would like to work on that. She reports sleeping and eating well. She reports suboxone helpful with cravings to use opiods. She has attended some groups more regularly. She denies SI/HI. She reports seroquel very helpful and would like to increase dose back. She does note increase appetite but also notes she was not eating much while using combination of cocaine and opioids. She declines referrals for residential substance use treatment. She is in agreement to continue suboxone. She declined referrals for PHP, she is in agreement to continue OP psych tx. Medication Compliance: Yes Side effects from medications: No Attending Groups: Yes Mental Status Exam Mental Status Exam Narrative: A&O. Pt is in casual attire, much improved hygiene, in NAD. Moderate eye contact, attentive. No Tics or Tremors. No abnormal involuntary movements. Less dysphoric. Non-pressured speech, spontaneous with regular rate and rhythm, normal volume and prosody. No prolonged speech latency or dysarthria. Mood is ?better,? affect is congruent, less dysphoric. Denies SI/SIB/HI upon inquiry. Denies A/VH or delusional thought content. Thoughts are coherent, organized. cognitive/memory: grossly intact to conversational testing. Insight/ Judgment: improving x 2. Diagnostics Vital Signs (24Hr): Vital Signs - 24 hr 12/02/21 14:31 12/02/21 16:33 12/02/21 18:00 Temperature 98.1 F Pulse Rate 92 93 93 Respiratory Rate 18 Blood Pressure 119/59 L 108/57 L 108/57 L Pulse Oximetry 98 12/02/21 20:45 12/02/21 20:47 12/03/21 08:00 Temperature 98.5 F 97.9 F Pulse Rate 92 92 92 Respiratory Rate 17 Blood Pressure 109/57 L 109/57 L 135/77 Pulse Oximetry 98 97 12/03/21 08:36 Temperature Pulse Rate 92 Respiratory Rate Blood Pressure 135/77 Pulse Oximetry BMI result Body Mass Index 24.5 Medications Medications Current Medications Acetaminophen (Acetaminophen 325 Mg Tablet) 650 mg PO Q6H PRN PRN Reason: Headache/Pain Mild Scale (1-3) Last Admin: 12/02/21 06:52 Dose: 650 mg Documented by: Al Hydroxide/Mg Hydroxide (Magnesium Hydrox/Alum Hydrox 30 Ml Oral.Susp) 30 ml PO Q6H PRN PRN Reason: Heartburn/Nausea Last Admin: 11/24/21 20:03 Dose: 30 ml Documented by: Benzocaine (Throat Lozenge, Medicated Lozenge) 1 lozenge MUCOUS MEM Q2H PRN PRN Reason: Sore Throat Last Admin: 11/26/21 08:38 Dose: 1 lozenge Documented by: Buprenorphine/Naloxone (Buprenorphine/Naloxone 8/2 Mg Film) 1 film SUBLINGUAL BID@0800,1700 [facility] Clonidine HCl (Clonidine Hcl 0.1 Mg Tablet) 0.1 mg PO TID PRN; Protocol PRN Reason: hyperarousal Last Admin: 12/03/21 10:31 Dose: 0.1 mg Documented by: Docusate Sodium (Docusate Sodium 100 Mg Capsule) 200 mg PO BEDTIME PRN PRN Reason: constipation Last Admin: 12/02/21 21:24 Dose: 200 mg Documented by: Famotidine (Famotidine 20 Mg Tablet) 20 mg PO BID [facility] Last Admin: 12/03/21 08:37 Dose: 20 mg Documented by: Folic Acid (Folic Acid 1 Mg Tablet) 1 mg PO DAILY [facility] Last Admin: 12/03/21 08:36 Dose: 1 mg Documented by: Gabapentin (Gabapentin 300 Mg Capsule) 600 mg PO TID [facility] Last Admin: 12/03/21 08:36 Dose: 600 mg Documented by: Lamotrigine (Lamotrigine 25 Mg Tablet) 25 mg PO BEDTIME [facility] Last Admin: 12/02/21 20:39 Dose: 25 mg Documented by: Loperamide HCl (Loperamide Hcl 2 Mg Capsule) 2 mg PO Q4H PRN PRN Reason: loose stools Last Admin: 11/27/21 19:05 Dose: 2 mg Documented by: Magnesium Hydroxide (Milk Of Magnesia 30 Ml Oral.Susp) 30 ml PO DAILY PRN PRN Reason: Constipation Last Admin: 12/02/21 16:16 Dose: 30 ml Documented by: Multivitamins/Vitamin C (Multivitamin Tablet) 1 tab PO DAILY [facility] Last Admin: 12/03/21 08:36 Dose: 1 tab Documented by: Nicotine Polacrilex (Nicotine Polacrilex 2 Mg Gum) 4 mg BUCCAL Q2H PRN PRN Reason: Nicotine Cravings Last Admin: 12/02/21 12:30 Dose: 4 mg Documented by: Propranolol HCl (Propranolol Hcl 10 Mg Tablet) 10 mg PO TID [facility]; Protocol Last Admin: 12/03/21 08:36 Dose: 10 mg Documented by: Quetiapine Fumarate (Quetiapine Fumarate 100 Mg Tablet) 100 mg PO Q6H PRN PRN Reason: agitation Last Admin: 12/03/21 09:27 Dose: 100 mg Documented by: Quetiapine Fumarate (Quetiapine Fumarate 200 Mg Tablet) 200 mg PO BEDTIME [facility] Last Admin: 12/02/21 20:39 Dose: 200 mg Documented by: Quetiapine Fumarate (Quetiapine Fumarate 100 Mg Tablet) 100 mg PO DAILY@0800,1500 [facility] Last Admin: 12/03/21 12:53 Dose: 100 mg Documented by: Thiamine HCl (Thiamine Hcl 100 Mg Tablet) 100 mg PO DAILY [facility] Last Admin: 12/03/21 08:36 Dose: 100 mg Documented by: Trazodone HCl (Trazodone Hcl 50 Mg Tablet) 50 mg PO BEDTIME PRN PRN Reason: Insomnia Last Admin: 12/02/21 23:13 Dose: 50 mg Documented by: Allergies Allergies Allergy/AdvReac Type Severity Reaction Status Date / Time No Known Allergies Allergy Verified 03/07/21 14:26 Assessment & Plan Assessment & Plan (1) Cocaine use disorder: Code(s): F14.10 - Cocaine abuse, uncomplicated (2) Alcohol use disorder, severe, dependence: Code(s): F10.20 - Alcohol dependence, uncomplicated (3) Opioid use disorder, moderate, dependence: Code(s): F11.20 - Opioid dependence, uncomplicated (4) JOANN (generalized anxiety disorder): Code(s): F41.1 - Generalized anxiety disorder (5) MDD (major depressive disorder), recurrent episode, moderate: Code(s): F33.1 - Major depressive disorder, recurrent, moderate Assessment and Plan: Bella is a 31 y.o. Female who carries a dx of MDD vs Bipolar Disorder type 2, recurrent episode, JOANN, polysubstance abuse, and severe alcohol abuse. She has co-morbid diagnosis of hepatitis C. She presented to [facility] 11/22/21 reporting depression and withdrawal sx after binging on multiple drugs and alcohol for the last 2-3 months. Hospitalist put in psych consult for disposition due to concerns with pt making suicidal statements and demonstrating high risk behaviors. PLAN: 1. Continue gabapentin 600mg po TID; increase seroquel to 100mg po daily, 100mg po @ 1500 and 200mg po qhs for mood stabilization. 2. continue propanolol 10mg po TID 2. coordinate aftercare plan- pt will continue suboxone, OP psych tx. ? I spent minutes with the patient and/or on the patient floor today, greater than?50% of which was spent counseling/coordinating care. Reason for contiued inpatient stay Substantial Risk for: inability to function
[2021-12-03] MEDS: cloNIDine HCL 0.1 MG TABLET PO (10:31)
--- NOTE | 2021-12-03 12:58 | P.PNADD_ITS ---
Subjective Subjective Date of Service: 12/03/21 Reason For Visit: si, depression Interim History: Patient doing well with transition to Suboxone Currently taking 8mg BID She reports feeling so much better since she stopped methadone She is experiencing chills and restlessness around dinner time, otherwise no other withdrawal sx to report Review of Systems Medical Review of Systems: unchanged (as per HPI) Mental Status Exam Mental Status Exam Patient Appearance: Well Grooomed and Appropriate Patient Orientation: Person, Place, Time and Situation Level of Consciousness: Awake and Appropriate Patient Behavior: Appropriate Mood Description: Calm and Appropriate Affect Description: Appropriate Patient Cognition Impaired: No Speech Pattern: Clear Thought Process: Goal Oriented Thought Content: positive for Circumstantial and positive for Goal Oriented Judgement: Fair Diagnostics Vital Signs (24Hr): Vital Signs - 24 hr 12/02/21 14:31 12/02/21 16:33 12/02/21 18:00 Temperature 98.1 F Pulse Rate 92 93 93 Respiratory Rate 18 Blood Pressure 119/59 L 108/57 L 108/57 L Pulse Oximetry 98 12/02/21 20:45 12/02/21 20:47 12/03/21 08:00 Temperature 98.5 F 97.9 F Pulse Rate 92 92 92 Respiratory Rate 17 Blood Pressure 109/57 L 109/57 L 135/77 Pulse Oximetry 98 97 12/03/21 08:36 Temperature Pulse Rate 92 Respiratory Rate Blood Pressure 135/77 Pulse Oximetry BMI result Body Mass Index 24.5 Medications Medications Current Medications Acetaminophen (Acetaminophen 325 Mg Tablet) 650 mg PO Q6H PRN PRN Reason: Headache/Pain Mild Scale (1-3) Last Admin: 12/02/21 06:52 Dose: 650 mg Documented by: Al Hydroxide/Mg Hydroxide (Magnesium Hydrox/Alum Hydrox 30 Ml Oral.Susp) 30 ml PO Q6H PRN PRN Reason: Heartburn/Nausea Last Admin: 11/24/21 20:03 Dose: 30 ml Documented by: Benzocaine (Throat Lozenge, Medicated Lozenge) 1 lozenge MUCOUS MEM Q2H PRN PRN Reason: Sore Throat Last Admin: 11/26/21 08:38 Dose: 1 lozenge Documented by: Buprenorphine/Naloxone (Buprenorphine/Naloxone 8/2 Mg Film) 1 film SUBLINGUAL BID@0800,1700 [facility] Clonidine HCl (Clonidine Hcl 0.1 Mg Tablet) 0.1 mg PO TID PRN; Protocol PRN Reason: hyperarousal Last Admin: 12/03/21 10:31 Dose: 0.1 mg Documented by: Docusate Sodium (Docusate Sodium 100 Mg Capsule) 200 mg PO BEDTIME PRN PRN Reason: constipation Last Admin: 12/02/21 21:24 Dose: 200 mg Documented by: Famotidine (Famotidine 20 Mg Tablet) 20 mg PO BID [facility] Last Admin: 12/03/21 08:37 Dose: 20 mg Documented by: Folic Acid (Folic Acid 1 Mg Tablet) 1 mg PO DAILY [facility] Last Admin: 12/03/21 08:36 Dose: 1 mg Documented by: Gabapentin (Gabapentin 300 Mg Capsule) 600 mg PO TID [facility] Last Admin: 12/03/21 08:36 Dose: 600 mg Documented by: Lamotrigine (Lamotrigine 25 Mg Tablet) 25 mg PO BEDTIME [facility] Last Admin: 12/02/21 20:39 Dose: 25 mg Documented by: Loperamide HCl (Loperamide Hcl 2 Mg Capsule) 2 mg PO Q4H PRN PRN Reason: loose stools Last Admin: 11/27/21 19:05 Dose: 2 mg Documented by: Magnesium Hydroxide (Milk Of Magnesia 30 Ml Oral.Susp) 30 ml PO DAILY PRN PRN Reason: Constipation Last Admin: 12/02/21 16:16 Dose: 30 ml Documented by: Multivitamins/Vitamin C (Multivitamin Tablet) 1 tab PO DAILY [facility] Last Admin: 12/03/21 08:36 Dose: 1 tab Documented by: Nicotine Polacrilex (Nicotine Polacrilex 2 Mg Gum) 4 mg BUCCAL Q2H PRN PRN Reason: Nicotine Cravings Last Admin: 12/02/21 12:30 Dose: 4 mg Documented by: Propranolol HCl (Propranolol Hcl 10 Mg Tablet) 10 mg PO TID [facility]; Protocol Last Admin: 12/03/21 08:36 Dose: 10 mg Documented by: Quetiapine Fumarate (Quetiapine Fumarate 100 Mg Tablet) 100 mg PO Q6H PRN PRN Reason: agitation Last Admin: 12/03/21 09:27 Dose: 100 mg Documented by: Quetiapine Fumarate (Quetiapine Fumarate 200 Mg Tablet) 200 mg PO BEDTIME [facility] Last Admin: 12/02/21 20:39 Dose: 200 mg Documented by: Quetiapine Fumarate (Quetiapine Fumarate 100 Mg Tablet) 100 mg PO DA LISA@0800,1500 [facility] Last Admin: 12/03/21 12:53 Dose: 100 mg Documented by: Thiamine HCl (Thiamine Hcl 100 Mg Tablet) 100 mg PO DAILY [facility] Last Admin: 12/03/21 08:36 Dose: 100 mg Documented by: Trazodone HCl (Trazodone Hcl 50 Mg Tablet) 50 mg PO BEDTIME PRN PRN Reason: Insomnia Last Admin: 12/02/21 23:13 Dose: 50 mg Documented by: Allergies Allergies Allergy/AdvReac Type Severity Reaction Status Date / Time No Known Allergies Allergy Verified 03/07/21 14:26 Assessment & Plan Assessment & Plan (1) Opioid use disorder: Status: Acute Code(s): F11.90 - Opioid use, unspecified, uncomplicated Assessment and Plan: * Suboxone times adjusted to 8am and 5pm to address sx reported by patient * follow up within 1-2 days to assess effectiveness I spent ___25___ minutes with the patient and/or on the patient floor today, greater than?50% of which was spent counseling/coordinating care.
[2021-12-03 15:27] VITALS: BP 112/60; PULSE 88; TEMP 36.2; O2SAT 99
[2021-12-03 20:56] VITALS: BP 92/60; PULSE 78; TEMP 36.5; O2SAT 99
[2021-12-03] MEDS: traZODone HCL 50 MG TABLET PO (20:59)
[2021-12-03] MEDS: QUEtiapine Fumarate 200 MG TABLET PO (20:59)
[2021-12-03] MEDS: Acetaminophen 325 MG TABLET 650 MG PO (21:00)
[2021-12-03] MEDS: lamoTRIgine 25 MG TABLET PO (21:00)
[2021-12-04] MEDS: QUEtiapine Fumarate 100 MG TABLET PO ×5 (00:21→20:08)
[2021-12-04] MEDS: traZODone HCL 50 MG TABLET PO ×2 (00:21→21:40)
--- NOTE | 2021-12-04 01:11 | PC.NURSE ---
r arm-reports that she feels as if her ROM has decreased. reports early in hospitalization that she had received phenobarb injections in that arm.
[2021-12-04 08:00] VITALS: BP 113/56; PULSE 75; TEMP 36.6; O2SAT 97
[2021-12-04] MEDS: Multivitamin TABLET 1 TAB PO (08:32)
[2021-12-04] MEDS: Folic Acid 1 MG TABLET PO (08:32)
[2021-12-04] MEDS: Propranolol HCL 10 MG TABLET PO ×3 (08:32→21:40)
[2021-12-04] MEDS: Thiamine HCL 100 MG TABLET PO (08:32)
[2021-12-04] MEDS: Buprenorphine/Naloxone 8/2 mg FILM 1 FILM SUBLINGUAL ×2 (08:32→16:58)
[2021-12-04] MEDS: Gabapentin 300 MG CAPSULE 600 MG PO ×3 (08:32→21:39)
[2021-12-04] MEDS: Famotidine 20 MG TABLET PO ×2 (08:32→21:39)
[2021-12-04] MEDS: Nicotine Polacrilex 2 MG GUM 4 MG BUCCAL (11:42)
[2021-12-04] MEDS: Acetaminophen 325 MG TABLET 650 MG PO (12:51)
--- NOTE | 2021-12-04 13:31 | HO.PSYCHPN ---
Subjective Subjective Date of Service: 12/04/21 Reason For Visit: si, depression Subjective Notes: Conditional Voluntary Interim History: Pt reports overall feeling less dysphoric, less labile, less depressed, more motivated to continue recovery. She reports suboxone helping with cravings. Pt denies SI/HI. She reports sleeping better. She endorses feeling anxious about upcoming discharge. She declines referrals for respite or residential substance use treatment. Pt has attended more groups, finds them helpful in terms of learning coping skills. Medication Compliance: Yes Side effects from medications: No Review of Systems Acute medical concerns: No Review of Systems Review of Systems CVS: No c/o chest pain, palpitations, no SOB [employer]: No c/o dizziness, headache GI: No c/o Nausea, Vomiting, diarrhea, constipation or heartburn Pt is demonstrating withdrawal sx from cocaine, including psychomotor restlessness. Yes Unobtainable due to mental status Constitutional: Reports as per [facility] Mental Status Exam Mental Status Exam Narrative: A&O. Pt is in casual attire, much improved hygiene, in NAD. Moderate eye contact, attentive. No Tics or Tremors. No abnormal involuntary movements. Less dysphoric. Non-pressured speech, spontaneous with regular rate and rhythm, normal volume and prosody. No prolonged speech latency or dysarthria. Mood is ?better,? affect is congruent, less dysphoric. Denies SI/SIB/HI upon inquiry. Denies A/VH or delusional thought content. Thoughts are coherent, organized. cognitive/memory: grossly intact to conversational testing. Insight/ Judgment: improving x 2. Diagnostics Vital Signs (24Hr): Vital Signs - 24 hr 12/03/21 20:56 12/04/21 08:00 12/04/21 15:00 Temperature 97.7 F 97.8 F Pulse Rate 78 75 96 Blood Pressure 92/60 113/56 L 142/60 H Pulse Oximetry 99 97 BMI result Body Mass Index 24.5 Medications Medications Current Medications Acetaminophen (Acetaminophen 325 Mg Tablet) 650 mg PO Q6H PRN PRN Reason: Headache/Pain Mild Scale (1-3) Last Admin: 12/04/21 12:51 Dose: 650 mg Documented by: Al Hydroxide/Mg Hydroxide (Magnesium Hydrox/Alum Hydrox 30 Ml Oral.Susp) 30 ml PO Q6H PRN PRN Reason: Heartburn/Nausea Last Admin: 11/24/21 20:03 Dose: 30 ml Documented by: Benzocaine (Throat Lozenge, Medicated Lozenge) 1 lozenge MUCOUS MEM Q2H PRN PRN Reason: Sore Throat Last Admin: 11/26/21 08:38 Dose: 1 lozenge Documented by: Buprenorphine/Naloxone (Buprenorphine/Naloxone 8/2 Mg Film) 1 film SUBLINGUAL BID@0800,1700 [facility] Last Admin: 12/04/21 08:32 Dose: 1 film Documented by: Clonidine HCl (Clonidine Hcl 0.1 Mg Tablet) 0.1 mg PO TID PRN; Protocol PRN Reason: hyperarousal Last Admin: 12/04/21 14:29 Dose: 0.1 mg Documented by: Docusate Sodium (Docusate Sodium 100 Mg Capsule) 200 mg PO BEDTIME PRN PRN Reason: constipation Last Admin: 12/02/21 21:24 Dose: 200 mg Documented by: Famotidine (Famotidine 20 Mg Tablet) 20 mg PO BID [facility] Last Admin: 12/04/21 08:32 Dose: 20 mg Documented by: Folic Acid (Folic Acid 1 Mg Tablet) 1 mg PO DAILY [facility] Last Admin: 12/04/21 08:32 Dose: 1 mg Documented by: Gabapentin (Gabapentin 300 Mg Capsule) 600 mg PO TID [facility] Last Admin: 12/04/21 14:28 Dose: 600 mg Documented by: Lamotrigine (Lamotrigine 25 Mg Tablet) 25 mg PO BEDTIME [facility] Last Admin: 12/03/21 21:00 Dose: 25 mg Documented by: Loperamide HCl (Loperamide Hcl 2 Mg Capsule) 2 mg PO Q4H PRN PRN Reason: loose stools Last Admin: 11/27/21 19:05 Dose: 2 mg Documented by: Magnesium Hydroxide (Milk Of Magnesia 30 Ml Oral.Susp) 30 ml PO DAILY PRN PRN Reason: Constipation Last Admin: 12/02/21 16:16 Dose: 30 ml Documented by: Multivitamins/Vitamin C (Multivitamin Tablet) 1 tab PO DAILY [facility] Last Admin: 12/04/21 08:32 Dose: 1 tab Documented by: Nicotine Polacrilex (Nicotine Polacrilex 2 Mg Gum) 4 mg BUCCAL Q2H PRN PRN Reason: Nicotine Cravings Last Admin: 12/04/21 11:42 Dose: 4 mg Documented by: Propranolol HCl (Propranolol Hcl 10 Mg Tablet) 10 mg PO TID [facility]; Protocol Last Admin: 12/04/21 14:28 Dose: 10 mg Documented by: Quetiapine Fumarate (Quetiapine Fumarate 100 Mg Tablet) 100 mg PO Q6H PRN PRN Reason: agitation Last Admin: 12/04/21 12:51 Dose: 100 mg Documented by: Quetiapine Fumarate (Quetiapine Fumarate 200 Mg Tablet) 200 mg PO BEDTIME [facility] Last Admin: 12/03/21 20:59 Dose: 200 mg Documented by: Quetiapine Fumarate (Quetiapine Fumarate 100 Mg Tablet) 100 mg PO DAILY@0800,1500 [facility] Last Admin: 12/04/21 09:32 Dose: 100 mg Documented by: Thiamine HCl (Thiamine Hcl 100 Mg Tablet) 100 mg PO DAILY [facility] Last Admin: 12/04/21 08:32 Dose: 100 mg Documented by: Trazodone HCl (Trazodone Hcl 50 Mg Tablet) 50 mg PO BEDTIME PRN PRN Reason: Insomnia Last Admin: 12/04/21 00:21 Dose: 50 mg Documented by: Allergies Allergies Allergy/AdvReac Type Severity Reaction Status Date / Time No Known Allergies Allergy Verified 03/07/21 14:26 Assessment & Plan Assessment & Plan (1) Bipolar 2 disorder: Status: Acute Code(s): F31.81 - Bipolar II disorder (2) Cocaine use disorder: Status: Acute Code(s): F14.10 - Cocaine abuse, uncomplicated (3) Opioid use disorder: Status: Acute Code(s): F11.90 - Opioid use, unspecified, uncomplicated Assessment and Plan: Bella is a 31 y.o. Female who carries a dx of MDD, recurrent episode, JOANN, polysubstance abuse, and severe alcohol abuse. She has co-morbid diagnosis of hepatitis C. She presented to [facility] 11/22/21 reporting depression and withdrawal sx after binging on multiple drugs and alcohol for the last 2-3 months. Hospitalist put in psych consult for disposition due to concerns with pt making suicidal statements and demonstrating high risk behaviors. PLAN: 1. Increase gabapentin 600mg po TID; increase seroquel to 100mg po daily and 200mg po qhs for mood stabilization. 2. continue propanolol 10mg po TID 2. coordinate aftercare plan- pt will continue suboxone, OP psych tx. 11/30/2021 Patient will review material on bipolar disorder consider Depakote Tegretol Seroquel causing increased weight gain 12/01/2021 Reviewed literature regarding bipolar disorder somewhat difficult to diagnose the context of substance abuse but patient with strong family history does appear to describe great to for bipolar 2. Patient feels Suboxone helpful has gained significant weight Seroquel discussed tapering Seroquel and aching lamotrigine for bipolar disorder risks benefits alternatives reviewed taper Seroquel discussed option of partial hospital. Discharge planning monitor safety monitor response to medication 12/02/2021 Patient seen in psychiatric follow-up chart reviewed patient seen. Case reviewed with nursing staff. Patient gives history of difficulty with attention followed through distractibility worsening over the past 2 years with cocaine and alcohol use No clear history of learning disabilities but difficulty in school never followed through did homework. History of mood instability but difficult to assess with cocaine and alcohol abuse. Patient reviewed bipolar literature we discussed use of lamotrigine try and taper Seroquel secondary to weight gain might benefit from PHP IOP versus substance program diagnosis should be clarified over time question of bipolar 2 disorder PTSD probable ADHD consider Tenex consider Pamela I spent minutes with the patient and/or on the patient floor today, greater than?50% of which was spent counseling/coordinating care. Reason for contiued inpatient stay Substantial Risk for: inability to function
[2021-12-04] MEDS: cloNIDine HCL 0.1 MG TABLET PO (14:29)
[2021-12-04 15:00] VITALS: BP 142/60; PULSE 96
[2021-12-04] MEDS: QUEtiapine Fumarate 200 MG TABLET PO (21:40)
[2021-12-04] MEDS: lamoTRIgine 25 MG TABLET PO (21:40)
[2021-12-04 21:43] VITALS: BP 126/60; PULSE 95; TEMP 36.4; O2SAT 100
[2021-12-05] MEDS: QUEtiapine Fumarate 100 MG TABLET PO ×3 (05:07→12:02)
[2021-12-05 08:00] VITALS: BP 101/60; PULSE 83; RESP 16; TEMP 36.6; O2SAT 99
[2021-12-05] MEDS: Propranolol HCL 10 MG TABLET PO (08:16)
[2021-12-05] MEDS: Gabapentin 300 MG CAPSULE 600 MG PO (08:16)
[2021-12-05] MEDS: Multivitamin TABLET 1 TAB PO (08:16)
[2021-12-05] MEDS: Folic Acid 1 MG TABLET PO (08:17)
[2021-12-05] MEDS: Thiamine HCL 100 MG TABLET PO (08:17)
[2021-12-05] MEDS: Buprenorphine/Naloxone 8/2 mg FILM 1 FILM SUBLINGUAL (08:17)
[2021-12-05] MEDS: Famotidine 20 MG TABLET PO (08:18)
--- NOTE | 2021-12-05 10:27 | PM.PSYDC ---
DS: Providers Provider Date of Service: 12/05/21 Date of admission: 11/24/21 17:50 Primary care physician: Unknown Physician DS: Diagnosis Discharge Diagnosis (1) Bipolar 2 disorder: Status: Acute (2) Cocaine use disorder: Status: Acute (3) Opioid use disorder: Status: Acute DS: Medications Discharge Medications Home Medications: Previous Rx's Medication Instructions Recorded clonidine HCl 0.1 mg tablet 0.1 mg PO TID PRN #21 tab 12/05/21 docusate sodium 100 mg capsule 100 mg PO BID #60 cap 12/05/21 famotidine 20 mg tablet 20 mg PO BID #30 tab 12/05/21 folic acid 1 mg tablet 1 mg PO DAILY #30 tab 12/05/21 gabapentin 600 mg tablet 600 mg PO TID #90 tab 12/05/21 lamotrigine 25 mg tablet 25 mg PO BEDTIME #30 tab 12/05/21 multivitamin (Daily-Deep) 1 tab PO DAILY #30 tab 12/05/21 propranolol 10 mg tablet 10 mg PO TID #21 tab 12/05/21 quetiapine 100 mg tablet 100 mg PO DAILY@0800,1500 #60 tab 12/05/21 quetiapine 100 mg tablet 100 mg PO Q6H PRN #20 tab 12/05/21 quetiapine 200 mg tablet 200 mg PO BEDTIME #30 tab 12/05/21 thiamine mononitrate (vit B1) 100 100 mg PO DAILY #30 tab 12/05/21 mg tablet trazodone 50 mg tablet 50 mg PO BEDTIME PRN #30 tab 12/05/21 Mental Status Exam Mental Status Exam Narrative: A&O. Pt is in casual attire, much improved hygiene, in NAD. Moderate eye contact, attentive. No Tics or Tremors. No abnormal involuntary movements. Less dysphoric. Non-pressured speech, spontaneous with regular rate and rhythm, normal volume and prosody. No prolonged speech latency or dysarthria. Mood is ?better,? affect is congruent, less dysphoric. Denies SI/SIB/HI upon inquiry. Denies A/VH or delusional thought content. Thoughts are coherent, organized. cognitive/memory: grossly intact to conversational testing. Insight/ Judgment: improving x 2 but poor. DS: Summary Hospital Course Hospital Course: Chief Complaint: si, depression Sources of Information: patient interviewed, chart reviewed and crisis/core team assessment reviewed HPI Subjective Notes: Arellano Warning and Conditional Voluntary Healthcare Proxy: No Guardianship: No Medical Problems Affecting Mental Status: No Narrative: Bella is a 31 y.o. Female who carries a dx of MDD, recurrent episode, JOANN, polysubstance abuse, and severe alcohol abuse. She has co-morbid diagnosis of hepatitis C. She presented to [facility] [place]21 reporting depression and withdrawal sx after binging on multiple drugs and alcohol for the last 2-3 months. Per hospitalist note, pt reported she has been ?on a downward spiral and feels like she has nothing to live for,? felt her daughter ?would be better off without her.? She had been drinking daily up to a gallon of vodka per day for the last 4 days, required phenobarb protocol on [facility]. She had also been snorting cocaine and smoking crack. She has not slept in 4 days or eaten much of anything. She has been through withdrawal in multiple detox programs in the past but reported this is the worst she has ever felt. Has hx of SA by overdosing on seroquel. Per collateral contact, pt?s bf stated he last saw pt on 11/21, she then left home and was drinking, has concerns about her due to her excessive drinking.? I evaluated the pt this morning and upon interview she reports she is irritated, ?little things? are setting her off, i.e. meals being brought up from kitchen incorrect, her chap stick was stolen. Denies assaultive ideation. Says her dose of methadone yesterday ?is not enough.? States hydroxyzine is not helping with anxiety, asks for this to be discontinued. Says Ativan is not working.? Pt is tearful, labile during interview, states ?I need something stronger man, im sick of feeling this way, i?m always on edge? and that ?Especially with not being on drugs its making it a lot worse.? Says she cant sleep. Has felt ?jumpy? and has had a headache for four days. Appetite is poor. Pt reports her mood is ?all over the place? even during sober time and she has a long hx of insomnia. Reports her moods change throughout the day and ?I can be sitting here laughing and then i?m irritable,? hx of being verbally aggressive, engaging in property destruction, can go from ?zero to a thousand.? Says her mom had bipolar DO. Pt denies feeling depressed, says she is ?Overwhelmed more than depressed, I always feel overwhelmed? and anxious. Denies hallucinations. Says she feels like no one listens.? Past Psychiatric History: -Hx of previous psych admissions, last 06/28/21 at [facility]. Pt was at [facility] for two weeks, approximately four yrs ago. -Hx of presenting to [facility], last seen 06/28/21 after self presenting to the [facility] reporting that two days prior she overdosed on one of her friends Seroquel and Zoloft to kill herself. She was assessed on 03/01/[address] [facility] for SI and substance use, disposition was detox. Medical Evaluation Reviewed: Yes HOSPITAL COURSE On the unit, Bella was admitted on a CV and placed on 15 miuntes checks for safety. Pt presents as dysphoric, labile, restless, passive SI. We discussed risks, benefits and alternative treatment options. Pt agreed to start gabapentin for anxious mood, lability. She was also started on seroquel, which she found helpful for mood and anxiety. She was also started on clonidine for anxiety. Gradually Ms. Quiroz presented as much less restless, less dysphoric. Her sleep improved. She was more visible in the unit and able to participate in some assigned groups more appropriately. She denied suicidal ideation several days prior to discharge. She did not appear internally preoccupied. She was eating well. She agreed to be referred to substance use residential treatment. She was seen by addiction team. She agreed to transition from methadone to suboxone with good effect. She was discharged to [facility] to continue substance use treatment. She was given narcan at time to discharge and harm reduction strategies were discussed at [facility] with pt. There were no incidences of disruptive behaviors nor use of restraints. Time spent discussing smoking cessation with patient: 3 to 10 minutes Status at Discharge Cognitive/behavioral status at discharge: Pt much less dysphoric, less restless. She denied suicidal ideation. No Signs of VH/AH. No signs of aggression towards self or others. Given narcan at time of discharge. No SI/HI. future oriented and much more hopeful about her recovery. Functional status at discharge: independent ambulation Overall status at discharge: patient is progressing back to baseline Time Spent with Patient Time attestation: Total time spent providing and/or coordinating discharge services: Discharge Plan Discharge Patient Disposition: Home, Self-Care Discharge Diagnosis: Bipolar type 2 Disorder OPioid Use disorder cocaine use disorder Referrals: [facility] [Other] - 12/06/21 9:30 am (MAT treatment appointment with [facility] following discharge [facility] [place] 1bib ([facility]) [Other] - 12/26/21 2:00 pm (Initial appointment for Psychiatry at [facility] outpatient clinic in [place] Appointment in office at [facility] location with Chauncey Lama ) Department of Mental Health (DM) [Other] - 1 Week (Referral to Department of Mental Health for Services [facility] to review application and follow-up with patient ) [facility] [Provider Group] - 1 Week ([phone] This clinic has walk in hours Friday through Friday 8:30-4:30. You can walk in or call to make an appointment.) [facility] [Physician] - 1 Week Discharge Medications: New clonidine HCl 0.1 mg Tablet 0.1 mg PO TID PRN (Reason: hyperarousal) Qty: 21 0RF Protocol: Hold for SBP< HOLD for SBP < : 90 propranolol 10 mg Tablet 10 mg PO TID Qty: 21 0RF Protocol: Hold for SBP/HR < HOLD for SBP < : 90 HOLD for HR < : 60 gabapentin 600 mg tablet 600 mg PO TID Qty: 90 0RF multivitamin [Daily-Deep] Tablet 1 tab PO DAILY Qty: 30 0RF trazodone 50 mg Tablet 50 mg PO BEDTIME PRN (Reason: Insomnia) Qty: 30 0RF quetiapine 200 mg Tablet 200 mg PO BEDTIME Qty: 30 0RF quetiapine 100 mg Tablet 100 mg PO Q6H PRN (Reason: agitation) Qty: 20 0RF quetiapine 100 mg Tablet 100 mg PO DAILY@0800,1500 Qty: 60 0RF lamotrigine 25 mg Tablet 25 mg PO BEDTIME Qty: 30 0RF famotidine 20 mg Tablet 20 mg PO BID Qty: 30 0RF docusate sodium 100 mg Capsule 100 mg PO BID Qty: 60 0RF folic acid 1 mg Tablet 1 mg PO DAILY Qty: 30 0RF thiamine mononitrate (vit B1) 100 mg Tablet 100 mg PO DAILY Qty: 30 0RF Discontinued hydroxyzine HCl 50 mg Tablet 50 mg PO TID PRN (Reason: Anxiety) 0RF Label Comments: PT STATES TAKING 4 TO 5 TABS OF THE HYDROXYZINE AT ONE TIME No Action buprenorphine-naloxone [Suboxone] 8-2 mg film 1 film sublingual TID Qty: 21 0RF Discharge Orders: Discharge Order (Routine); Ordered 12/05/21 Ordered By: Vicki Cisse Diet: regular diet Activity on Discharge: As tolerated Stand Alone Forms: Patient Portal Discharge page, Community Support Care Plan Goals: Maintain mood- less dysphoric No SI/HI. No signs of aggression towards self or others HARM REDUCTION- take home narcan given Health Concerns: Follow up with PCP for regular care Plan of Treatment: 1. Take medications as prescribed 2. Follow up with appointment 3. Go to nearest ED or call 911 in event of emergency Assessment: Pt much less labile, less dysphoric, less anxiety. No SI/HI. No signs of aggression towards self or others. Started on suboxone and motivated to continue recovery and psychiatric treatment. Discharge Date/Time: 12/05/21 12:25
[2021-12-05] MEDS: Nicotine Polacrilex 2 MG GUM 4 MG BUCCAL (10:33)
--- NOTE | 2021-12-05 11:55 | PC.NURSE ---
Patient is alert, fully oriented, pleasant and cooperative with discharge process. Bella denies ideation, plan or intent to harm self or others. 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 She verbalizes plan to follow up with appointments and comply with prescribed medications. She denies current urges to use substances. She denies physical complaint
[2021-12-05] MEDS: Naloxone HCl Nasal TAKE HOME 4 MG SPRAY NOSTRILALT (12:03)
== END 2021-12-05 12:25 | disposition home or self-care (01) | DRG 753 ==
LOC: HO.PM5 11-27 08:31 → HO.PADLT16 11-28 13:01
PROVIDERS: Nurse Practitioner Psychiatric/Mental Health; Registered Nurse; Admitting Provider Psychiatry & Neurology Psychiatry; Visit Provider Social Worker
DX: F31.81 Bipolar II disorder (principal); R45.851 Suicidal ideations; B19.20 Unspecified viral hepatitis C without hepatic coma; F11.23 Opioid dependence with withdrawal; F14.10 Cocaine abuse, uncomplicated; F10.20 Alcohol dependence, uncomplicated; F41.1 Generalized anxiety disorder; F17.210 Nicotine dependence, cigarettes, uncomplicated; Z71.6 Tobacco abuse counseling; Z79.899 Other long term (current) drug therapy
CPT/HCPCS: 36415; 80076; 82140; 82607; 82746; 83735; 84439; 84443; 87389

== ENCOUNTER → 2021-12-06 09:27 | Outpatient (BNVA) | payer OTHER, SELFPAY | PROVIDERS: Visit Provider Nurse Practitioner Psychiatric/Mental Health | DX: Z51.81 Encounter for therapeutic drug level monitoring (principal); F11.20 Opioid dependence, uncomplicated; F14.10 Cocaine abuse, uncomplicated; F10.20 Alcohol dependence, uncomplicated | CPT/HCPCS: 80305; 99212 ==

== ENCOUNTER → 2021-12-13 10:41 | Outpatient (BNVA) | payer OTHER, SELFPAY | PROVIDERS: Visit Provider Nurse Practitioner Psychiatric/Mental Health | DX: Z51.81 Encounter for therapeutic drug level monitoring (principal); F11.20 Opioid dependence, uncomplicated; F14.10 Cocaine abuse, uncomplicated; F10.20 Alcohol dependence, uncomplicated | CPT/HCPCS: 99212 ==

== ENCOUNTER 2022-01-04 06:19 | Inpatient (IN) | payer OTHER, SELFPAY ==
--- NOTE | ~2022-01-04 | CT_ITS ---
EXAMINATION: CT ABDOMEN AND PELVIS WITHOUT CONTRAST CLINICAL INFORMATION: Vomiting and diarrhea COMPARISON: 08/19/2021 TECHNIQUE: Multidetector volumetric imaging was performed from the superior aspect of the liver through the pubic symphysis. Sagittal and coronal reformatted images were obtained on the technologist's workstation. This CT examination was performed using dose optimization techniques as appropriate, variously including the following: *Automated exposure control *Adjustment of mA and/or kV according to patient size (this includes techniques or standardized protocols for targeted exams where dose is matched to indication/reason for exam; i.e. extremities or head) *Use of iterative reconstruction technique DLP: 463 mGy-cm FINDINGS: LUNG BASES: The visualized lung bases are unremarkable. LIVER, GALLBLADDER, AND BILIARY TREE: Liver is of low attenuation due to hepatic steatosis with areas of fatty sparing adjacent to the falciform ligament. Bladder is well distended without stones or wall thickening. CBD is not dilated. PANCREAS: Unremarkable. SPLEEN: Unremarkable. ADRENAL GLANDS: Unremarkable. KIDNEYS AND URETERS: The kidneys are normal in size, shape, and attenuation. No hydronephrosis, hydroureter seen. There is no obstructing calculus measured approximately 3 mm in the lower pole of left kidney. No perinephric stranding. BLADDER: Unremarkable. GASTROINTESTINAL TRACT: Loops of bowel aren't distended. Loops of small bowel aren't dilated with questionable partial small bowel obstruction, zone of transition is not clearly seen, possibly in the left lower quadrant. Appendix is surgically absent.. ABDOMINAL WALL: No significant hernia is appreciated. LYMPH NODES: Normal. VASCULAR: Unremarkable. PELVIC VISCERA: Unremarkable. OSSEOUS STRUCTURES: There is artifact at the level L5 with grade 1 anterior listhesis of L5/S1. CT/CT abdomen pelvis wo con IMPRESSION: Partial small bowel obstruction. The transition in the left lower abdomen. Left nephrolithiasis Fleischner guidelines were followed.
[2022-01-04 06:27] VITALS: BP 118/71; PULSE 99; RESP 18; TEMP 36.6; O2SAT 97; BMI 23.0
--- NOTE | 2022-01-04 06:34 | ED_ITS ---
HPI - Psych General Chief Complaint: Psychiatric Symptoms Stated Complaint: SI/Etoh Time Seen by Provider: 01/04/22 06:29 Source: patient and EMS Mode of arrival: EMS Limitations: no limitations History of Present Illness HPI Narrative: Patient comes to the emergency room complaining of anxiety, suicidal ideation. Patient states that she has been off of her medications for about a month now. Patient states that every time that she comes here, gets limited for 3 days, then gets discharged and every time she gets admitted and discharge, feels that her situation/mental status worsens. Patient denies homicidal ideation. Patient has no specific plan, patient states that she would use any means to end her life. Patient admits to drinking alcohol and using cocaine and heroin Related Data Home Medications Medication Instructions Recorded Confirmed buprenorphine 8 mg-naloxone 2 mg 1 strip SUBLINGUAL TID 01/04/22 01/04/22 sublingual film Allergies Allergy/AdvReac Type Severity Reaction Status Date / Time No Known Allergies Allergy Verified 12/06/21 09:33 Review of Systems Verdana 4l Review of Systems: Verdana 4d Verdana 4d Constitutional : No Weight loss, No Fever, No Chills, No Night Sweats, No Fatigue, No Malaise ENT/Mouth : No Hearing loss, No Ear Pain, No Nasal Congestion, No Sinus Pain, No Hoarseness, No sore throat, No Rhinorrhea, No Swallowing DifficultyDifficulty Eyes: No Eye Pain, No Swelling, No Redness, No Foreign Body, No Discharge, No Vision Changes Cardiovascular : No Chest Pain, No SOB, No Dyspnea on Exertion, No Orthopnea, No Edema, No Palpitations Respiratory : No Cough, No Sputum, No Wheezing, No Smoke Exposure, No Dyspnea Gastrointestinal : No Nausea, No Vomiting, No Diarrhea, No Constipation, No abdominal Pain, No Hematochezia, No Melena Genitourinary : no irregular bleeding, No Dysuria, No Urinary Frequency, No Hematuria, No Urinary Incontinence, No Urgency, No Flank Pain, No Urinary Flow Changes, No Hesitancy Musculoskeletal : No joint pain, No Myalgias, No Joint Swelling Skin : No Skin Lesions, No rash Neuro : No Weakness, No Numbness, No Paresthesias, No Loss of Consciousness, No Dizziness, No Headache Psych : Complaining of feeling anxious, depressed, vague suicidal ideation, no homicidal ideation, denies hallucinations Heme/Lymph: No Bruising, No Bleeding,No Lymphadenopathy Endocrine : No Polyuria, No Polydipsia, No Temperature Intolerance [facility] Past Medical History Medical History Alcohol use disorder, severe, dependence Alcohol use disorder, severe, dependence Cocaine use Cocaine use disorder Cocaine use disorder JOANN (generalized anxiety disorder) History of hepatitis C MDD (major depressive disorder), recurrent episode, moderate Opiate abuse, continuous Opioid use disorder Opioid use disorder, moderate, dependence Polysubstance abuse Smoker Surgical History S/P laparoscopic appendectomy Social History Social History Household Members: None Housing: Homeless Do you presently have visiting nurse or other home services: No Alcohol intake: current Patient Tobacco Use Status: Current everyday Tobacco user Tobacco use type: Cigarette Cigarette Packs Per Day: 1 Cigarettes Per Day: 20.0 Years Smoked: 10 e-Cigarette/Vaping Use: Never Used Second Hand Smoke Exposure: Yes Substance Use Type: Crack/Cocaine, Heroin and Opiates Advance Directives: No Advance Directives Information Provided: Yes Patient : No service: No Current occupational status: unemployed Sexual orientation: Straight/Heterosexual Physical Exam Verdana 4l Vital Signs: Verdana 4d Verdana 4d Vital Signs: Verdana 4d Verdana 4Bd Last Vital Signs Verdana 4d Healthcare Administration Intern New 4d Healthcare Administration Intern New 4d Temp 97.9 F 01/04/22 06:27 Healthcare Administration Intern New 4d Pulse 99 01/04/22 06:27 Healthcare Administration Intern New 4d Resp 18 01/04/22 06:27 BP 118/71 01/04/22 06:27 Pulse Ox 97 01/04/22 06:27 BMI result Body Mass Index 23.0 Const: Other: Appearance: Alert. Oriented X3. Very anxious Eyes: Pupils equal, round and reactive to light. ENT: Pharynx normal. Neck: Normal inspection. Neck supple. No lymph nodes noted. No crepitus CVS: Normal heart rate and rhythm. Pulses normal. Normal S1 and S2 Respiratory: No respiratory distress. Breath sounds normal. No Wheezing. No rales Abdomen: Soft and nontender. No rigidity. No distention. good BS x4 Skin: Skin warm and dry. Normal skin color. Normal skin turgor. Extremities: No lower extremity edema. No lower extremity edema. No Lacerations. No Rash Neuro: Oriented X 3. No motor deficit. No sensory deficit. Moving all extermities. No slurred speech. Cranial nerves 2-12 grossly intact Psych: Anxious, pressured speech Course Course Course Narrative: Follow-up the labs are pending, [facility] pending. Sign-out given to Dr. Pringle Physician observation started at 06:37 Discharge Plan Discharge Clinical Impression: Substance abuse, Bipolar 2 disorder, Alcohol abuse Patient Disposition: Still a Patient Prescriptions: No Action clonidine HCl 0.1 mg Tablet 0.1 mg PO TID PRN (Reason: hyperarousal) Qty: 21 0RF Protocol: Hold for SBP< HOLD for SBP < : 90 propranolol 10 mg Tablet 10 mg PO TID Qty: 21 0RF Protocol: Hold for SBP/HR < HOLD for SBP < : 90 HOLD for HR < : 60 gabapentin 600 mg tablet 600 mg PO TID Qty: 90 0RF multivitamin [Daily-Deep] Tablet 1 tab PO DAILY Qty: 30 0RF trazodone 50 mg Tablet 50 mg PO BEDTIME PRN (Reason: Insomnia) Qty: 30 0RF quetiapine 200 mg Tablet 200 mg PO BEDTIME Qty: 30 0RF quetiapine 100 mg Tablet 100 mg PO Q6H PRN (Reason: agitation) Qty: 20 0RF quetiapine 100 mg Tablet 100 mg PO DAILY@0800,1500 Qty: 60 0RF lamotrigine 25 mg Tablet 25 mg PO BEDTIME Qty: 30 0RF famotidine 20 mg Tablet 20 mg PO BID Qty: 30 0RF docusate sodium 100 mg Capsule 100 mg PO BID Qty: 60 0RF folic acid 1 mg Tablet 1 mg PO DAILY Qty: 30 0RF thiamine mononitrate (vit B1) 100 mg Tablet 100 mg PO DAILY Qty: 30 0RF buprenorphine-naloxone [Suboxone] 8-2 mg film 1 film sublingual TID Qty: 21 0RF
[2022-01-04 06:53] LABS: Appearance Urine CLEAR; Color Urine STRAW; Glucose Urine UA NEG (NEG); Leukocyte Esterase Urine 1+ (NEG); Nitrite Urine NEG (NEG); PH 5.5 (5.0-8.0); Specific Gravity - Urine 1.015 (1.005-1.025); Urine Blood NEG (NEG); Urine Ketones NEG (NEG); Urine Protein NEG (NEG-TRACE)
[2022-01-04 06:54] LABS: UPreg QC Valid YES; Urine Pregnancy NEGATIVE (NEGATIVE)
[2022-01-04 07:01] LABS: Bacteria Urine 1+ /LPF; RBC Urine 0 /HPF (0); Squamous Epithelial Cell Urine 4+ /LPF
[2022-01-04 07:09] LABS: Amphetamine Screen Urine Not Detected (Not Detect); Barbiturates, Urine Not Detected (Not Detect); Benzodiazepines Screen Urine Not Detected (Not Detect); Cannabinoid Screen Urine POSITIVE (Not Detect); Cocaine Screen Urine POSITIVE (Not Detect); Fentanyl, urine POSITIVE (Not Detect); Opiate Screen Urine Not Detected (Not Detect); Phencyclidine Screen Urine Not Detected (Not Detect)
[2022-01-04 07:11] LABS: COVID-19 Test Negative (Negative)
--- NOTE | 2022-01-04 07:26 | PC.NURSE ---
patient appears to remain asleep at present respirations are even and unlabored patient appears in no distress
[2022-01-04 07:41] LABS: Alanine Aminotransferase 23 U/L (0-31); Albumin Level 4.1 g/dL (3.5-5.0); Alkaline Phosphatase 87 U/L (39-117); Anion Gap 14 (12-20); Aspartate Amino Transferase 22 U/L (5-31); Bilirubin Direct 0.2 mg/dL (0.0-0.5); Bilirubin Total 0.4 mg/dL (0.0-1.0); Blood Urea Nitrogen 9 mg/dL (9-16); Calcium 9.4 mg/dL (8.4-10.2); Carbon Dioxide 22 mmol/L (22-29); Chloride 106 mmol/L (96-108); Creatinine Clr Calc Pharmacy 97.7; Estimated Glomerular Filt Rate > 60; Glucose Random 84 mg/dL (60-115); Magnesium 2.1 mg/dL (1.6-2.6); Potassium 3.4 mmol/L (3.3-5.1); Sodium 139 mmol/L (135-145); Total Protein 6.9 g/dL (6.5-8.0)
[2022-01-04] MEDS: cloNIDine HCL 0.1 MG TABLET PO (11:25)
[2022-01-04 11:26] LABS: MANUAL DIFF FLAG NO
[2022-01-04 11:29] LABS: Basophils Percent Auto 0.4 % (0-2); Eosinophils Absolute Auto 0.2 X10*3/uL (0.0-0.4); Eosinophils Percent Auto 3.5 % (0-4); Hematocrit 35.4 % (37.0-47.0); Imm Gran Abs Auto 0.01 X10*3/uL (0.00-0.03); Imm Gran Pct Auto 0.1 % (0.0-0.4); Lymphocytes Percent Auto 43.1 % (20-40); Mean Corpuscular HGB Conc 33.9 g/dl (31.0-35.0); Mean Corpuscular Hemoglobin 30.9 pg (27.0-33.0); Mean Corpuscular Volume 91.2 fL (80.0-98.0); Mean Platelet Volume 9.5 fL (9.4-12.3); Monocytes Absolute Auto 0.5 X10*3/uL (0.1-1.2); Monocytes Percent Auto 7.5 % (2-11); Neutrophils Absolute Auto 3.2 x10*3/uL (2.0-8.3); Neutrophils Percent Auto 45.4 % (45-73); Platelet Count 233 X10*3/uL (160-400); Red Blood Count 3.88 X10*6/uL (4.20-5.50); Red Cell Distribution Width 14.1 % (11.0-16.0); White Blood Count 6.9 X10*3/uL (4.8-10.8)
[2022-01-04 11:42] LABS: Ethanol < 10 mg/dL
--- NOTE | 2022-01-04 17:10 | MHC.RECOVSUP ---
? Reason for consult Recovery Support o Current location: 6 o Identified substance use concern: Fentanyl - Seeking ATS (detox) - Support ? Intervention: <del>o</del> <del>ATS</del> <del>bed</del> <del>search</del> <del>started/completed/in</del> <del>process</del> <del>o</del> <del>MAT</del> <del>started</del> <del>or</del> <del>to</del> <del>be</del> <del>started</del> <del>o</del> <del>Community</del> <del>resources</del> <del>provided</del> <del>o</del> <del>Harm</del> <del>reduction</del> <del>discussion</del> <del>?</del> <del>Plan:</del> <del>o</del> <del>Referral</del> <del>to</del> <del>[facility]</del> <del>o</del> <del>Bed</del> <del>search</del> <del>in</del> <del>progress</del> <del>to</del> <del>o</del> <del>Follow</del> <del>up</del> <del>tomorrow</del> <del>o</del> <del>Patient</del> <del>awaiting</del> <del>crisis</del> <del>evaluation</del> <del>o</del> <del>Patient</del> <del>to</del> <del>follow</del> <del>up</del> <del>with</del> <del>[facility]</del> <del>after</del> <del>discharge</del> ? Additional information: Patient wants detox No bed available at present time
[2022-01-04 17:25] VITALS: BP 105/57; PULSE 73; RESP 16; TEMP 36.9; O2SAT 100
[2022-01-05 03:56] VITALS: BP 108/51; PULSE 78; RESP 18; TEMP 36.4; O2SAT 98
--- NOTE | 2022-01-05 07:04 | PC.NURSE ---
Patient slept through the night, no distress observed/reported, per [facility] patient's disposition is detox bed search, careteam will coordinate the bed search, medication compliant, behavior appropriate, will continue to monitor.
[2022-01-05 08:03] VITALS: BP 98/53; PULSE 80; RESP 17; TEMP 36.6; O2SAT 98
--- NOTE | 2022-01-05 08:37 | PC.NURSE ---
pt seen by justen (care team) pt aware of plan of care.
[2022-01-05] MEDS: Buprenorphine/Naloxone 8/2 mg FILM 1 FILM SUBLINGUAL ×3 (09:21→20:12)
--- NOTE | 2022-01-05 09:59 | PHA.MEDREC ---
Pharmacy Consult ? Medication Reconciliation Pharmacy has completed the medication reconciliation. Called [facility] pharmacy who confirmed pt did slate picker in December, went over medication list with pt who confirmed but stated she doesn't know the last time she had taken them. Kerry Martines, ValeD
[2022-01-05] MEDS: Folic Acid 1 MG TABLET PO (12:12)
[2022-01-05] MEDS: Thiamine HCL 100 MG TABLET PO (12:12)
[2022-01-05] MEDS: Multivitamin TABLET 1 TAB PO (12:12)
--- NOTE | 2022-01-05 13:10 | PC.NURSE ---
Patient tearful regarding need for inpatient services states she does not want to go to detox and that she wants to go inpatient for her mental issues. This message was relayed to care team. Will continue to monitor.
--- NOTE | 2022-01-05 13:45 | MHC.RECOVSUP ---
Recovery Support note: This chief underwriter met with patient to discuss plan for ATS. Patient reports she does not feel as though ATS would be helpful, stating that she needs help for her mental health. Patient stated I've never been this bad before. Patient reports SI, stating she will kill herself if she ends up on the street. Discussed case with CARE Team. Plan for patient to be re-evaluated. This chief underwriter available as needed.
[2022-01-05] MEDS: cloNIDine HCL 0.1 MG TABLET PO ×2 (14:06→20:12)
[2022-01-05] MEDS: Gabapentin 600 MG TABLET PO ×2 (14:06→20:11)
[2022-01-05] MEDS: Propranolol HCL 20 MG TABLET PO ×2 (14:06→20:11)
[2022-01-05] MEDS: QUEtiapine Fumarate 100 MG TABLET PO (14:07)
[2022-01-05 14:08] VITALS: BP 116/58; O2SAT 100
[2022-01-05 15:34] VITALS: BP 91/57; PULSE 87; TEMP 36.9; O2SAT 99
[2022-01-05] MEDS: Famotidine 20 MG TABLET PO (20:11)
[2022-01-05] MEDS: lamoTRIgine 25 MG TABLET PO (20:12)
[2022-01-05] MEDS: QUEtiapine Fumarate 200 MG TABLET PO (20:18)
[2022-01-05 20:19] VITALS: BP 105/52; PULSE 80; RESP 17; TEMP 36.8; O2SAT 99
[2022-01-05] MEDS: traZODone HCL 50 MG TABLET PO (20:23)
[2022-01-05 23:12] VITALS: BP 90/52; PULSE 82; RESP 18; TEMP 36.8; O2SAT 98
[2022-01-06 01:39] VITALS: RESP 18
[2022-01-06 07:46] VITALS: BP 102/53; PULSE 80; RESP 16; TEMP 36.6; O2SAT 100
[2022-01-06] MEDS: Gabapentin 600 MG TABLET PO ×3 (08:00→20:16)
[2022-01-06] MEDS: cloNIDine HCL 0.1 MG TABLET PO ×2 (08:00→15:25)
[2022-01-06] MEDS: Buprenorphine/Naloxone 8/2 mg FILM 1 FILM SUBLINGUAL ×3 (08:00→20:16)
[2022-01-06] MEDS: Thiamine HCL 100 MG TABLET PO (08:00)
[2022-01-06] MEDS: Folic Acid 1 MG TABLET PO (08:01)
[2022-01-06] MEDS: Multivitamin TABLET 1 TAB PO (08:01)
[2022-01-06] MEDS: QUEtiapine Fumarate 100 MG TABLET PO ×2 (08:05→15:39)
[2022-01-06] MEDS: Famotidine 20 MG TABLET PO ×2 (08:05→20:16)
[2022-01-06] MEDS: Propranolol HCL 20 MG TABLET PO (15:26)
--- NOTE | 2022-01-06 18:12 | PC.NURSE ---
Contact made to [facility] due to patient acutity on the floor, Pt is unable to be transferred to M3. There will be multiple Female d/c in am. Plan is for patient to go upstairs to M3 before noon.
[2022-01-06 19:51] VITALS: BP 101/50; PULSE 87; TEMP 36.4; O2SAT 98
[2022-01-06] MEDS: QUEtiapine Fumarate 200 MG TABLET PO (20:16)
[2022-01-06] MEDS: lamoTRIgine 25 MG TABLET PO ×2 (20:16→20:17)
[2022-01-06 23:28] VITALS: BP 98/51; PULSE 87; RESP 18; TEMP 36.6; O2SAT 99
[2022-01-06] MEDS: traZODone HCL 50 MG TABLET PO (23:28)
--- NOTE | 2022-01-07 05:23 | PC.NURSE ---
Patient slept intermittently, no distress observed/reported, behavior non concerning at this time, snacking continuously, medication compliant, patient is pre-accepted to M3 per report, patient asked whether someone on the floor can help her with housing, vss, will continue to monitor.
[2022-01-07] MEDS: cloNIDine HCL 0.1 MG TABLET PO ×2 (07:39→16:08)
[2022-01-07] MEDS: Thiamine HCL 100 MG TABLET PO (07:39)
[2022-01-07] MEDS: Buprenorphine/Naloxone 8/2 mg FILM 1 FILM SUBLINGUAL ×3 (07:39→20:11)
[2022-01-07] MEDS: Gabapentin 600 MG TABLET PO ×3 (07:40→20:11)
[2022-01-07] MEDS: Folic Acid 1 MG TABLET PO (07:40)
[2022-01-07] MEDS: Multivitamin TABLET 1 TAB PO (07:40)
[2022-01-07] MEDS: Famotidine 20 MG TABLET PO ×2 (07:40→20:11)
[2022-01-07] MEDS: Propranolol HCL 20 MG TABLET PO ×2 (07:40→16:07)
--- NOTE | 2022-01-07 08:40 | PC.NURSE ---
pt requested morning meds early. pt pleasant, no behavioral issues noted/reported. per Care Team there are no open beds upstairs at this time and will keep this rfp writer updated with any changes. pt accepted breakfast. requesting snacks continuously. pt denies pain, in room laying down at this time, no complaints. will continue to monitor.
[2022-01-07] MEDS: QUEtiapine Fumarate 100 MG TABLET PO ×3 (08:59→22:46)
--- NOTE | 2022-01-07 11:40 | MHC.RECOVSUP ---
Recovery Support note: [facility]ATS/ [facility] - no beds at this time [facility] - no beds at this time, information sent for waitlist [facility] - no beds at this time, information sent for waitlist [facility] - does not accept her insurance [facility] - no beds at this time, information sent for waitlist [facility] - no beds at this time, does not work off of waitlist This advertising writer will follow up with the facilities that accepted referral to see if anything has opened up.
[2022-01-07 14:55] VITALS: BP 91/53; PULSE 93; RESP 18; TEMP 36.9; O2SAT 98
--- NOTE | 2022-01-07 15:27 | ECG_ITS ---
Test Reason : MED CLEARANCE Blood Pressure : / mmHG Vent. Rate : 066 BPM Atrial Rate : 066 BPM P-R Int : 156 ms QRS Dur : 082 ms QT Int : 374 ms P-R-T Axes : 035 048 025 degrees QTc Int : 392 ms Normal sinus rhythm Normal ECG When compared with ECG of 24-NOV-2021 15:45, QT has shortened Referred By: Sarah Allen Electronically Signed By:Jonny Jeffers
[2022-01-07 18:32] VITALS: BP 108/59; PULSE 102; RESP 16; TEMP 36.5; O2SAT 98
[2022-01-07 18:33] VITALS: BMI 26.0
[2022-01-07 20:09] VITALS: BP 109/57; PULSE 84; RESP 16; TEMP 37; O2SAT 100
[2022-01-07] MEDS: QUEtiapine Fumarate 200 MG TABLET PO (20:11)
[2022-01-07] MEDS: lamoTRIgine 25 MG TABLET PO (20:11)
[2022-01-07] MEDS: traZODone HCL 50 MG TABLET PO ×2 (21:17→22:46)
--- NOTE | 2022-01-07 21:52 | PC.ADMIT ---
Patient is a 31 year old female who arrived to [facility] at 18:05 in a wheelchair from the ED at [facility]. Vital signs T: 98.6, RR: 16, BP: 109/57, HR: 84, O2: 100%. Patient is pleasant and cooperative with admission process. Patient is alert and oriented x 4. Patient reports that anxiety and depression is 10/10 at all times. Patient states the depression is primarily due to not seeing my daughter, who is only going to be 2 years old. I hate my ex and his family so I don't see her. I want to be able to see her, but I do not even know where to start . Patient then requested to see if web content & social media manager is able to help with this. Patient reported I am back here so soon because I was not ready for discharge when they discharged me last time. I was not ready to leave. I was still having these bad thoughts. Then there comes a point when you don't want to fight anymore and the I just snap. When I snap I just say fuck it and don't care about a thing. I will stop caring for myself and be reckless . Patient reported to using cocaine the week of 12/31/2021 - 01/03/2022. Patient reported to be using 2 to 3 grams of cocaine over 3 days. The last use of cocaine was 01/03/2022 prior to pt bringing self to police station for feeling unsafe and suicidal ideation. Patient reported to drinking 3 pints of vodka last week within 5 hours on 01/02/2022. Patient reports sleep is terrible, and unable to fall asleep. Then when I do fall asleep I wake up a million times . Patient reported that appetite is poor, I am just picking at meals, I don't really eat whole meals lately . Patient denies HI/AH/VH. Patient stated that I have some bad thoughts to hurt myself sometimes, but I feel safe in here because I am with people who know what they are doing and how to care for me . Patient reported feeling safe on the unit. Patient reported that blood pressure has been low the last few days and they haven't been giving me some of my meds because of it. I also will get these black spots in my vision . Patient denied any other physical complaints at this time.
[2022-01-07] MEDS: Acetaminophen 325 MG TABLET 650 MG PO (22:45)
[2022-01-07] MEDS: Calcium Carbonate 750 MG TAB.CHEW PO (22:46)
[2022-01-08] MEDS: hydrOXYzine HCL 25 MG TABLET PO (02:34)
[2022-01-08] MEDS: QUEtiapine Fumarate 100 MG TABLET PO ×4 (05:09→16:10)
[2022-01-08 05:12] VITALS: BP 122/59; PULSE 70; RESP 16; O2SAT 97
[2022-01-08 08:27] VITALS: BP 116/63; PULSE 95; RESP 15; TEMP 36.9; O2SAT 98
[2022-01-08] MEDS: Famotidine 20 MG TABLET PO ×2 (08:28→20:36)
[2022-01-08] MEDS: cloNIDine HCL 0.1 MG TABLET PO ×3 (08:28→20:35)
[2022-01-08] MEDS: Propranolol HCL 20 MG TABLET PO ×3 (08:29→20:36)
[2022-01-08] MEDS: Multivitamin TABLET 1 TAB PO (08:29)
[2022-01-08] MEDS: Gabapentin 600 MG TABLET PO ×3 (08:29→20:36)
[2022-01-08] MEDS: Folic Acid 1 MG TABLET PO (08:29)
[2022-01-08] MEDS: Buprenorphine/Naloxone 8/2 mg FILM 1 FILM SUBLINGUAL ×3 (08:30→20:35)
[2022-01-08] MEDS: Thiamine HCL 100 MG TABLET PO (08:30)
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
[2022-01-08 12:19] VITALS: BP 100/56; PULSE 83; RESP 15; TEMP 36.9; O2SAT 99
[2022-01-08 15:58] VITALS: BP 113/56; PULSE 88; RESP 16; TEMP 37.1; O2SAT 98
[2022-01-08] MEDS: Simethicone 80 MG TAB.CHEW PO ×2 (16:03→20:35)
[2022-01-08] MEDS: lamoTRIgine 25 MG TABLET PO (20:35)
[2022-01-08] MEDS: QUEtiapine Fumarate 200 MG TABLET PO (20:35)
[2022-01-08 20:41] VITALS: BP 101/60; PULSE 75; TEMP 36.8; O2SAT 97
[2022-01-09 08:00] VITALS: BP 99/55; PULSE 79; RESP 16; TEMP 36.2; O2SAT 99
[2022-01-09] MEDS: Buprenorphine/Naloxone 8/2 mg FILM 1 FILM SUBLINGUAL ×3 (08:54→20:39)
[2022-01-09] MEDS: Thiamine HCL 100 MG TABLET PO (08:55)
[2022-01-09] MEDS: Simethicone 80 MG TAB.CHEW PO ×3 (08:56→20:40)
[2022-01-09] MEDS: Famotidine 20 MG TABLET PO ×2 (08:56→20:40)
[2022-01-09] MEDS: cloNIDine HCL 0.1 MG TABLET PO ×3 (08:56→20:40)
[2022-01-09] MEDS: Multivitamin TABLET 1 TAB PO (08:56)
[2022-01-09] MEDS: Propranolol HCL 20 MG TABLET PO ×2 (08:56→14:54)
[2022-01-09] MEDS: Folic Acid 1 MG TABLET PO (08:56)
[2022-01-09] MEDS: Gabapentin 600 MG TABLET PO ×3 (08:56→20:40)
[2022-01-09] MEDS: QUEtiapine Fumarate 100 MG TABLET PO ×3 (09:04→17:36)
[2022-01-09] MEDS: Acetaminophen 325 MG TABLET 650 MG PO ×2 (09:22→20:56)
--- NOTE | 2022-01-09 10:59 | HO.PSYCHPN ---
Subjective Subjective Date of Service: 01/09/22 Reason For Visit: SI Subjective Notes: Conditional Voluntary Interim History: Pt reports feeling depressed, intermittent anxious mood, restless at times pacing. She endorses feeling hopeless, anhedonia. She reports suicidal ideation no plan or intent but worries about hurting self if back to similar situations. She denies AH/VH. She reports poor sleep. She has been intermittently visible in the unit, has attended some groups. No behavioral concerns. Medication Compliance: Yes Side effects from medications: No Review of Systems Review of Systems Constitutional : No Weight loss, No Fever, No Chills, No Night Sweats, No Fatigue, No Malaise ENT/Mouth : No Hearing loss, No Ear Pain, No Nasal Congestion, No Sinus Pain, No Hoarseness, No sore throat, No Rhinorrhea, No Swallowing Difficulty Eyes: No Eye Pain, No Swelling, No Redness, No Foreign Body, No Discharge, No Vision Changes Cardiovascular : No Chest Pain, No SOB, No Dyspnea on Exertion, No Orthopnea, No Edema, No Palpitations Respiratory : No Cough, No Sputum, No Wheezing, No Smoke Exposure, No Dyspnea Gastrointestinal : No Nausea, No Vomiting, No Diarrhea, No Constipation, No abdominal Pain, No Hematochezia, No Melena Genitourinary : no irregular bleeding, No Dysuria, No Urinary Frequency, No Hematuria, No Urinary Incontinence, No Urgency, No Flank Pain, No Urinary Flow Changes, No Hesitancy Musculoskeletal : No joint pain, No Myalgias, No Joint Swelling Skin : No Skin Lesions, No rash Neuro : No Weakness, No Numbness, No Paresthesias, No Loss of Consciousness, No Dizziness, No Headache Psych : Complaining of feeling anxious, depressed, vague suicidal ideation, no homicidal ideation, denies hallucinations Heme/Lymph: No Bruising, No Bleeding,No Lymphadenopathy Endocrine : No Polyuria, No Polydipsia, No Temperature Intolerance Yes all other systems are reviewed and are negative Constitutional: Denies chills, Reports fatigue, Reports lethargy, Reports night sweats, Denies stops breathing during sleep and Denies weakness Eyes: Reports no additional eye complaints Denies dizziness Cardiovascular: Denies chest pain, Denies chest pain at rest, Denies epigastric discomfort, Denies diaphoresis, Denies rapid heart rate, Denies leg edema, Denies lightheadedness and Denies dyspnea Respiratory: Denies cough and Denies dyspnea Gastrointestinal: Reports bloating, Reports constipation, Reports GI cramping, Reports excessive flatus, Reports diarrhea, Reports nausea and Reports vomiting Musculoskeletal: Denies muscle weakness Denies dizziness, Denies memory loss and Denies weakness Psychiatric: Reports depression, Reports difficulty concentrating, Reports hopelessness and Denies memory loss Endocrine: Reports fatigue Mental Status Exam Mental Status Exam Narrative: Appearance: casually groomed, fair hygiene, somewhat somnolent but able to keep conversation, in NAD Behavior: cooperative, guarded about early discharge Psychomotor: no agitation or retardation noted Speech: clear, normal rate/rhythm, volume spontaneous TP: linear TC: no signs of psychosis, wanting to continue treatment, depressed Mood: depressed, very anxious Affect: blunted HI: none SI: passive SI VH/AH: none Delusions: none Insight/judgment: poor x 2. Memory/cog: alert, oriented x 3. grossly intact to conversational testing. Diagnostics Vital Signs (24Hr): Vital Signs - 24 hr 01/10/22 19:46 01/11/22 08:00 Temperature 98.2 F 98.4 F Pulse Rate 108 H 81 Respiratory Rate 18 16 Blood Pressure 122/53 L 129/54 L Pulse Oximetry 97 100 BMI result Body Mass Index 26.0 Labs Results: 01/10/22 13:53 01/10/22 13:53 Labs: Laboratory Results - last 48 hr 01/09/22 01/10/22 01/10/22 13:17 13:53 13:53 WBC 4.1 L RBC 3.32 L Hgb 10.5 L Hct 31.7 L MCV 95.5 MCH 31.6 MCHC 33.1 RDW 14.2 Plt Count 157 L D MPV 10.6 Immature Gran % (Auto) 0.2 Neut % (Auto) 43.7 L Lymph % (Auto) 45.6 H Bath % (Auto) 7.6 Eos % (Auto) 2.9 Baso % (Auto) 0.0 Lymph # (Auto) 1.9 Bath # (Auto) 0.3 Eos # (Auto) 0.1 Baso # (Auto) 0.0 Abs Immat Gran (auto) 0.01 Absolute Neuts (auto) 1.8 L Absolute Nucleated RBC 0.000 Nucleated RBC % (auto) 0.0 Sodium 138 Potassium 4.1 D Chloride 104 Carbon Dioxide 27 Anion Gap 11 L BUN 15 D Creatinine 0.76 Estim Creat Clear Calc 98.3 Estimated GFR > 60 Random Glucose 82 Calcium 9.0 Total Bilirubin 0.3 AST 54 H ALT 105 H Alkaline Phosphatase 76 Total Protein 6.0 L Albumin 3.6 Lipase 5 L C. difficile Tox B Gene COVID-19 ([facility]) Negative COVID-19 Clin Com See Note 01/10/22 22:10 WBC RBC Hgb Hct MCV MCH MCHC RDW Plt Count MPV Immature Gran % (Auto) Neut % (Auto) Lymph % (Auto) Bath % (Auto) Eos % (Auto) Baso % (Auto) Lymph # (Auto) Bath # (Auto) Eos # (Auto) Baso # (Auto) Abs Immat Gran (auto) Absolute Neuts (auto) Absolute Nucleated RBC Nucleated RBC % (auto) Sodium Potassium Chloride Carbon Dioxide Anion Gap BUN Creatinine Estim Creat Clear Calc Estimated GFR Random Glucose Calcium Total Bilirubin AST ALT Alkaline Phosphatase Total Protein Albumin Lipase C. difficile Tox B Gene NEGATIVE COVID-19 ([facility]) COVID-19 Clin Com Medications Medications Current Medications Acetaminophen (Acetaminophen 325 Mg Tablet) 650 mg PO Q6H PRN PRN Reason: Headache/Pain Mild Scale (1-3) Last Admin: 01/10/22 19:01 Dose: 650 mg Documented by: Al Hydroxide/Mg Hydroxide (Magnesium Hydrox/Alum Hydrox 30 Ml Oral.Susp) 30 ml PO Q6H PRN PRN Reason: Heartburn/Nausea Benzocaine (Throat Lozenge, Medicated Lozenge) 1 lozenge MUCOUS MEM Q2H PRN PRN Reason: Sore Throat Last Admin: 01/10/22 06:25 Dose: 1 lozenge Documented by: Buprenorphine/Naloxone (Buprenorphine/Naloxone 8/2 Mg Film) 1 film SUBLINGUAL TID [facility] Last Admin: 01/11/22 08:05 Dose: 1 film Documented by: Calcium Carbonate (Calcium Carbonate 750 Mg Tab.Chew) 750 mg PO Q4H PRN PRN Reason: acid reflux Last Admin: 01/07/22 22:46 Dose: 750 mg Documented by: Clonidine HCl (Clonidine Hcl 0.1 Mg Tablet) 0.1 mg PO TID [facility]; Protocol Last Admin: 01/11/22 08:05 Dose: 0.1 mg Documented by: Docusate Sodium (Docusate Sodium 100 Mg Capsule) 100 mg PO BID [facility] Last Admin: 01/11/22 08:05 Dose: 100 mg Documented by: Famotidine (Famotidine 20 Mg Tablet) 20 mg PO BID [facility] Last Admin: 01/11/22 08:05 Dose: 20 mg Documented by: Folic Acid (Folic Acid 1 Mg Tablet) 1 mg PO DAILY [facility] Last Admin: 01/11/22 08:06 Dose: 1 mg Documented by: Gabapentin (Gabapentin 600 Mg Tablet) 600 mg PO TID [facility] Last Admin: 01/11/22 08:05 Dose: 600 mg Documented by: Guaifenesin (Guaifenesin La 600 Mg Tab.Er.12h) 600 mg PO BID [facility] Last Admin: 01/11/22 08:05 Dose: 600 mg Documented by: Hydroxyzine HCl (Hydroxyzine Hcl 25 Mg Tablet) 25 mg PO BEDTIME PRN PRN Reason: Anxiety Last Admin: 01/10/22 23:48 Dose: 25 mg Documented by: Lamotrigine (Lamotrigine 25 Mg Tablet) 50 mg PO BEDTIME [facility] Last Admin: 01/10/22 20:40 Dose: 50 mg Documented by: Magnesium Hydroxide (Milk Of Magnesia 30 Ml Oral.Susp) 30 ml PO DAILY PRN PRN Reason: Constipation Last Admin: 01/09/22 20:14 Dose: 30 ml Documented by: Multivitamins/Vitamin C (Multivitamin Tablet) 1 tab PO DAILY [facility] Last Admin: 01/11/22 08:05 Dose: 1 tab Documented by: Nicotine (Nicotine 21 Mg Patch.Td24) 21 mg TRANSDERMA DAILY [facility] Last Admin: 01/11/22 08:26 Dose: 21 mg Documented by: Nicotine Polacrilex (Nicotine Polacrilex 2 Mg Gum) 4 mg BUCCAL Q2H PRN PRN Reason: Nicotine Cravings Last Admin: 01/09/22 15:59 Dose: 4 mg Documented by: Quetiapine Fumarate (Quetiapine Fumarate 100 Mg Tablet) 100 mg PO DAILY@0800,1500 [facility] Last Admin: 01/11/22 08:11 Dose: 100 mg Documented by: Quetiapine Fumarate (Quetiapine Fumarate 100 Mg Tablet) 100 mg PO Q6H PRN PRN Reason: Anxiety Last Admin: 01/10/22 19:01 Dose: 100 mg Documented by: Quetiapine Fumarate (Quetiapine Fumarate 200 Mg Tablet) 200 mg PO BEDTIME [facility] Last Admin: 01/10/22 20:40 Dose: 200 mg Documented by: Simethicone (Simethicone 80 Mg Tab.Chew) 80 mg PO TID [facility] Last Admin: 01/11/22 08:05 Dose: 80 mg Documented by: Thiamine HCl (Thiamine Hcl 100 Mg Tablet) 100 mg PO DAILY [facility] Last Admin: 01/11/22 08:05 Dose: 100 mg Documented by: Trazodone HCl (Trazodone Hcl 100 Mg Tablet) 200 mg PO BEDTIME [facility] Last Admin: 01/10/22 20:40 Dose: 200 mg Documented by: Allergies Allergies Allergy/AdvReac Type Severity Reaction Status Date / Time No Known Allergies Allergy Verified 12/06/21 09:33 Assessment & Plan Assessment & Plan (1) Abdominal pain: Status: Acute Code(s): R10.9 - Unspecified abdominal pain Plan This is a 31 year old female with substance abuse, anxiety, bipolar admitted to now having abdominal pain nausea and vomiting abdominal pain likely gastroenteritis no fever, no wbc recommend bland diet, advance as tolerated will check cdif given recent admission to hospital if no improvement in pain can consider CT abdomen/pelvis mild transaminitis h/o HCV - untreated outpatient GI follow up thrombocytopenia mild ?r/t HCV vs etoh use polysubstance abuse no evidence of withdrawal at this time continue current management thank you for allowing us to participate in the care of this patient. I spent minutes with the patient and/or on the patient floor today, greater than?50% of which was spent counseling/coordinating care. Reason for contiued inpatient stay Substantial Risk for: harm to self
[2022-01-09 12:00] VITALS: BP 95/42; PULSE 79; RESP 16; TEMP 36.7; O2SAT 99
[2022-01-09 13:46] LABS: COVID-19 Test Negative (Negative)
[2022-01-09] MEDS: Throat Lozenge, Medicated LOZENGE 1 LOZENGE MUCOUS MEM ×2 (14:53→20:56)
[2022-01-09 14:57] VITALS: BP 103/57; PULSE 92; RESP 16; TEMP 36.9; O2SAT 98
[2022-01-09] MEDS: Nicotine 21 MG PATCH.TD24 TRANSDERMA (15:56)
[2022-01-09] MEDS: Nicotine Polacrilex 2 MG GUM 4 MG BUCCAL (15:59)
[2022-01-09] MEDS: Docusate Sodium 100 MG CAPSULE PO (17:36)
[2022-01-09] MEDS: Milk of Magnesia 30 ML ORAL.SUSP PO (20:14)
[2022-01-09] MEDS: Doxepin HCl 10 MG CAPSULE 20 MG PO (20:39)
[2022-01-09] MEDS: lamoTRIgine 25 MG TABLET 50 MG PO (20:40)
[2022-01-09] MEDS: QUEtiapine Fumarate 200 MG TABLET PO (20:40)
[2022-01-09 20:45] VITALS: BP 113/61; PULSE 87; TEMP 36.7; O2SAT 99
[2022-01-10] MEDS: QUEtiapine Fumarate 100 MG TABLET PO ×6 (01:06→19:01)
[2022-01-10] MEDS: hydrOXYzine HCL 25 MG TABLET PO ×2 (01:06→23:48)
[2022-01-10 02:35] VITALS: BP 102/51; PULSE 99; RESP 16; TEMP 37; O2SAT 99
[2022-01-10 04:00] VITALS: TEMP 36.8
[2022-01-10] MEDS: Throat Lozenge, Medicated LOZENGE 1 LOZENGE MUCOUS MEM (06:25)
[2022-01-10] MEDS: Acetaminophen 325 MG TABLET 650 MG PO ×2 (06:25→19:01)
[2022-01-10 08:55] VITALS: BP 115/57; PULSE 92; RESP 16; TEMP 37; O2SAT 99
[2022-01-10] MEDS: Multivitamin TABLET 1 TAB PO (09:04)
[2022-01-10] MEDS: Simethicone 80 MG TAB.CHEW PO ×3 (09:04→20:39)
[2022-01-10] MEDS: Nicotine 21 MG PATCH.TD24 TRANSDERMA (09:04)
[2022-01-10] MEDS: Famotidine 20 MG TABLET PO ×2 (09:05→20:40)
[2022-01-10] MEDS: Gabapentin 600 MG TABLET PO ×3 (09:05→20:39)
[2022-01-10] MEDS: cloNIDine HCL 0.1 MG TABLET PO ×2 (09:05→20:40)
[2022-01-10] MEDS: Thiamine HCL 100 MG TABLET PO (09:05)
[2022-01-10] MEDS: Folic Acid 1 MG TABLET PO (09:05)
[2022-01-10] MEDS: Buprenorphine/Naloxone 8/2 mg FILM 1 FILM SUBLINGUAL ×3 (09:05→20:40)
--- NOTE | 2022-01-10 10:58 | P.PNPSI_ITS ---
Subjective Subjective Date of Service: 01/09/22 Reason For Visit: SI Subjective Notes: Conditional Voluntary Interim History: Pt reports she is anxious, tired, reports not sleeping well last night. She endorses depressed mood, passive SI. She is worried about relapsing and not trusting herself if discharge too soon. She denies VH/AH. She has attended some groups. We discussed d/c trazodone, starting doxepine for sleep/mood, increasing lamictal for mood. Medication Compliance: Yes Side effects from medications: No Review of Systems Review of Systems Constitutional : No Weight loss, No Fever, No Chills, No Night Sweats, No Fatigue, No Malaise ENT/Mouth : No Hearing loss, No Ear Pain, No Nasal Congestion, No Sinus Pain, No Hoarseness, No sore throat, No Rhinorrhea, No Swallowing Difficulty Eyes: No Eye Pain, No Swelling, No Redness, No Foreign Body, No Discharge, No Vision Changes Cardiovascular : No Chest Pain, No SOB, No Dyspnea on Exertion, No Orthopnea, No Edema, No Palpitations Respiratory : No Cough, No Sputum, No Wheezing, No Smoke Exposure, No Dyspnea Gastrointestinal : No Nausea, No Vomiting, No Diarrhea, No Constipation, No abdominal Pain, No Hematochezia, No Melena Genitourinary : no irregular bleeding, No Dysuria, No Urinary Frequency, No Hematuria, No Urinary Incontinence, No Urgency, No Flank Pain, No Urinary Flow Changes, No Hesitancy Musculoskeletal : No joint pain, No Myalgias, No Joint Swelling Skin : No Skin Lesions, No rash Neuro : No Weakness, No Numbness, No Paresthesias, No Loss of Consciousness, No Dizziness, No Headache Psych : Complaining of feeling anxious, depressed, vague suicidal ideation, no homicidal ideation, denies hallucinations Heme/Lymph: No Bruising, No Bleeding,No Lymphadenopathy Endocrine : No Polyuria, No Polydipsia, No Temperature Intolerance Constitutional: Reports fatigue, Reports lethargy, Denies stops breathing during sleep and Denies weakness Eyes: Reports no additional eye complaints Denies dizziness Cardiovascular: Denies chest pain, Denies chest pain at rest, Denies epigastric discomfort, Denies diaphoresis, Denies rapid heart rate, Denies leg edema, Denies lightheadedness and Denies dyspnea Respiratory: Denies cough and Denies dyspnea Gastrointestinal: Reports bloating, Reports constipation and Reports excessive flatus Musculoskeletal: Denies muscle weakness Denies dizziness, Denies memory loss and Denies weakness Psychiatric: Reports depression, Reports difficulty concentrating, Reports hopelessness and Denies memory loss Endocrine: Reports fatigue Mental Status Exam Mental Status Exam Narrative: Appearance: casually groomed, fair hygiene, somewhat somnolent but able to keep conversation, in NAD Behavior: cooperative, guarded about early discharge Psychomotor: no agitation or retardation noted Speech: clear, normal rate/rhythm, volume spontaneous TP: linear TC: no signs of psychosis, wanting to continue treatment, depressed Mood: depressed, very anxious Affect: blunted HI: none SI: passive SI VH/AH: none Delusions: none Insight/judgment: poor x 2. Memory/cog: alert, oriented x 3. grossly intact to conversational testing. Diagnostics Vital Signs (24Hr): Vital Signs - 24 hr 01/09/22 12:00 01/09/22 14:57 01/09/22 20:45 Temperature 98.1 F 98.5 F 98.0 F Pulse Rate 79 92 87 Respiratory Rate 16 16 Blood Pressure 95/42 L 103/57 L 113/61 Pulse Oximetry 99 98 99 01/10/22 04:00 01/10/22 08:55 Temperature 98.2 F 98.6 F Pulse Rate 92 Respiratory Rate 16 Blood Pressure 115/57 L Pulse Oximetry 99 BMI result Body Mass Index 26.0 Labs Results: 01/04/22 11:20 01/04/22 07:15 Labs: Laboratory Results - last 48 hr 01/09/22 13:17 COVID-19 ([facility]) Negative COVID-19 Clin Com See Note Medications Medications Current Medications Acetaminophen (Acetaminophen 325 Mg Tablet) 650 mg PO Q6H PRN PRN Reason: Headache/Pain Mild Scale (1-3) Last Admin: 01/10/22 06:25 Dose: 650 mg Documented by: Al Hydroxide/Mg Hydroxide (Magnesium Hydrox/Alum Hydrox 30 Ml Oral.Susp) 30 ml PO Q6H PRN PRN Reason: Heartburn/Nausea Benzocaine (Throat Lozenge, Medicated Lozenge) 1 lozenge MUCOUS MEM Q2H PRN PRN Reason: Sore Throat Last Admin: 01/10/22 06:25 Dose: 1 lozenge Documented by: Buprenorphine/Naloxone (Buprenorphine/Naloxone 8/2 Mg Film) 1 film SUBLINGUAL TID MARISABEL Last Admin: 01/10/22 09:05 Dose: 1 film Documented by: Calcium Carbonate (Calcium Carbonate 750 Mg Tab.Chew) 750 mg PO Q4H PRN PRN Reason: acid reflux Last Admin: 01/07/22 22:46 Dose: 750 mg Documented by: Clonidine HCl (Clonidine Hcl 0.1 Mg Tablet) 0.1 mg PO TID [facility]; Protocol Last Admin: 01/10/22 09:05 Dose: 0.1 mg Documented by: Docusate Sodium (Docusate Sodium 100 Mg Capsule) 100 mg PO BID PRN PRN Reason: Constipation Last Admin: 01/09/22 17:36 Dose: 100 mg Documented by: Doxepin HCl (Doxepin Hcl 10 Mg Capsule) 20 mg PO BEDTIME [facility] Last Admin: 01/09/22 20:39 Dose: 20 mg Documented by: Famotidine (Famotidine 20 Mg Tablet) 20 mg PO BID [facility] Last Admin: 01/10/22 09:05 Dose: 20 mg Documented by: Folic Acid (Folic Acid 1 Mg Tablet) 1 mg PO DAILY [facility] Last Admin: 01/10/22 09:05 Dose: 1 mg Documented by: Gabapentin (Gabapentin 600 Mg Tablet) 600 mg PO TID [facility] Last Admin: 01/10/22 09:05 Dose: 600 mg Documented by: Hydroxyzine HCl (Hydroxyzine Hcl 25 Mg Tablet) 25 mg PO BEDTIME PRN PRN Reason: Anxiety Last Admin: 01/10/22 01:06 Dose: 25 mg Documented by: Lamotrigine (Lamotrigine 25 Mg Tablet) 50 mg PO BEDTIME [facility] Last Admin: 01/09/22 20:40 Dose: 50 mg Documented by: Magnesium Hydroxide (Milk Of Magnesia 30 Ml Oral.Susp) 30 ml PO DAILY PRN PRN Reason: Constipation Last Admin: 01/09/22 20:14 Dose: 30 ml Documented by: Multivitamins/Vitamin C (Multivitamin Tablet) 1 tab PO DAILY [facility] Last Admin: 01/10/22 09:04 Dose: 1 tab Documented by: Nicotine (Nicotine 21 Mg Patch.Td24) 21 mg TRANSDERMA DAILY [facility] Last Admin: 01/10/22 09:04 Dose: 21 mg Documented by: Nicotine Polacrilex (Nicotine Polacrilex 2 Mg Gum) 4 mg BUCCAL Q2H PRN PRN Reason: Nicotine Cravings Last Admin: 01/09/22 15:59 Dose: 4 mg Documented by: Quetiapine Fumarate (Quetiapine Fumarate 100 Mg Tablet) 100 mg PO DAILY@0800,1500 [facility] Last Admin: 01/10/22 09:05 Dose: 100 mg Documented by: Quetiapine Fumarate (Quetiapine Fumarate 100 Mg Tablet) 100 mg PO Q6H PRN PRN Reason: Anxiety Last Admin: 01/10/22 06:25 Dose: 100 mg Documented by: Quetiapine Fumarate (Quetiapine Fumarate 200 Mg Tablet) 200 mg PO BEDTIME [facility] Last Admin: 01/09/22 20:40 Dose: 200 mg Documented by: Simethicone (Simethicone 80 Mg Tab.Chew) 80 mg PO TID [facility] Last Admin: 01/10/22 09:04 Dose: 80 mg Documented by: Thiamine HCl (Thiamine Hcl 100 Mg Tablet) 100 mg PO DAILY [facility] Last Admin: 01/10/22 09:05 Dose: 100 mg Documented by: Allergies Allergies Allergy/AdvReac Type Severity Reaction Status Date / Time No Known Allergies Allergy Verified 12/06/21 09:33 Assessment & Plan Assessment & Plan (1) Bipolar 2 disorder: Status: Acute Code(s): F31.81 - Bipolar II disorder (2) Cocaine use disorder: Status: Acute Code(s): F14.10 - Cocaine abuse, uncomplicated (3) Opioid use disorder: Status: Acute Code(s): F11.90 - Opioid use, unspecified, uncomplicated (4) Alcohol use disorder, severe, dependence: Status: Acute Code(s): F10.20 - Alcohol dependence, uncomplicated Plan Ms. Quiroz is a 31 year-old woman with hx of Bipolar type 2, cocaine, alcohol and opioid use disorder who self presented to [facility] on 01/05 reporting SI without plan. She was last d/c from on 12/05 after treatment for similar presentation. In the ED, her utox positive for fentanyl, cocaine, THC. We discussed risks, benefits and alternative treatment options. Pt agreed to continue gabapentin, seorquel and lamictal for mood stabilization, which were medications she was discharged on last admission. PLAN 1. Admit to , CV, 15 minutes checks for safety 2. Obtain collateral information 3. Aftercare planning 01/09: d/c trazodone, will try doxepine for sleep/mood, increase lamictal to 50mg po qhs. continue seroquel. pt reports increase appetite but wants to keep seroq uel. I spent minutes with the patient and/or on the patient floor today, greater than?50% of which was spent counseling/coordinating care. Reason for contiued inpatient stay Substantial Risk for: harm to self
[2022-01-10 14:15] LABS: MANUAL DIFF FLAG NO
[2022-01-10 14:20] LABS: Eosinophils Absolute Auto 0.1 X10*3/uL (0.0-0.4); Eosinophils Percent Auto 2.9 % (0-4); Hematocrit 31.7 % (37.0-47.0); Hemoglobin 10.5 g/dl (12.0-16.0); Imm Gran Abs Auto 0.01 X10*3/uL (0.00-0.03); Imm Gran Pct Auto 0.2 % (0.0-0.4); Lymphocytes Absolute Auto 1.9 X10*3/uL (1.2-4.9); Lymphocytes Percent Auto 45.6 % (20-40); Mean Corpuscular HGB Conc 33.1 g/dl (31.0-35.0); Mean Corpuscular Hemoglobin 31.6 pg (27.0-33.0); Mean Corpuscular Volume 95.5 fL (80.0-98.0); Mean Platelet Volume 10.6 fL (9.4-12.3); Monocytes Absolute Auto 0.3 X10*3/uL (0.1-1.2); Monocytes Percent Auto 7.6 % (2-11); Neutrophils Absolute Auto 1.8 x10*3/uL (2.0-8.3); Neutrophils Percent Auto 43.7 % (45-73); Platelet Count 157 X10*3/uL (160-400); Red Blood Count 3.32 X10*6/uL (4.20-5.50); Red Cell Distribution Width 14.2 % (11.0-16.0); White Blood Count 4.1 X10*3/uL (4.8-10.8)
[2022-01-10 14:41] LABS: Alanine Aminotransferase 105 U/L (0-31); Albumin Level 3.6 g/dL (3.5-5.0); Alkaline Phosphatase 76 U/L (39-117); Anion Gap 11 (12-20); Aspartate Amino Transferase 54 U/L (5-31); Bilirubin Total 0.3 mg/dL (0.0-1.0); Blood Urea Nitrogen 15 mg/dL (9-16); Carbon Dioxide 27 mmol/L (22-29); Chloride 104 mmol/L (96-108); Creatinine Clr Calc Pharmacy 98.3; Estimated Glomerular Filt Rate > 60; Glucose Random 82 mg/dL (60-115); Lipase 5 U/L (8-78); Potassium 4.1 mmol/L (3.3-5.1); Sodium 138 mmol/L (135-145)
[2022-01-10] MEDS: guaiFENesin LA 600 MG TAB.ER.12H PO ×2 (16:02→20:39)
--- NOTE | 2022-01-10 18:02 | P.CNHOSGPS_ITS ---
History of Present Illness Data of Consult Service Date: 01/10/22 Requesting physician: Vicki Cisse Primary Care Provider: Unknown Physician HPI Reason for consult: abdominal pain This is a 31 year old female admitted to [facility]. Yesterday she began having intermittent crampy abdominal pain. This is associated with nausea vomiting and non-bloody diarrhea. The pain comes and goes. There has been no documented fever but she reports waking up sweating last night. Her symptoms started after eating chicken stir lora yesterday. She is observed in her room eating a quesadilla. Review of Systems Review of Systems: Yes all other systems are reviewed and are negative Constitutional: Constitutional: Denies chills and Reports night sweats Gastrointestinal: Gastrointestinal: Reports GI cramping, Reports diarrhea, Reports nausea and Reports vomiting PMFSH Medical History Alcohol use disorder, severe, dependence Alcohol use disorder, severe, dependence Cocaine use Cocaine use disorder Cocaine use disorder JOANN (generalized anxiety disorder) History of hepatitis C MDD (major depressive disorder), recurrent episode, moderate Opiate abuse, continuous Opioid use disorder Opioid use disorder, moderate, dependence Polysubstance abuse Smoker Functional capacity: independent ambulation Pertinent family history: Maternal grandfather - liver cancer Maternal grandmother - ovarian cancer Surgical History S/P laparoscopic appendectomy Social History Household Members: Significant Other Household Members Other:: ex boyfriend Housing: Apartment Housing Other:: Rented a room with ex in an apartment Do you presently have visiting nurse or other home services: No Alcohol intake: current Patient Tobacco Use Status: Current everyday Tobacco user Tobacco use type: Cigarette Cigarette Packs Per Day: 0.75 Cigarettes Per Day: 15.0 Years Smoked: 13 Smoked in Last 30 Days: Yes e-Cigarette/Vaping Use: Never Used Patient Interested in Nicotine Replacement: Yes Patient Given Instructions on How to Stop Smoking: No Second Hand Smoke Exposure: Yes Use of substances other than those prescribed or required for medical reasons: Yes Substance Use Type: Crack/Cocaine and Heroin Substance Use Frequency: Occasionally Last Used Substance: Days (ago) Last Used Substance Other:: January 03 2022 Currently Displaying Signs/Symptoms of Drug Intoxication Withdrawal: No Any prior treatment program specific to substance use: Yes Have you been hit, kicked, punched, or otherwise hurt by someone within the past year? If so, by whom?: No Do you feel safe in your current relationship?: No Is there a partner from a previous relationship who is making you feel unsafe now?: No Are you made to feel afraid or neglected: No Spiritual Healthcare Practices: Patient denies. Buddhism Healthcare Practices: Patient denies. Cultural Healthcare Practices: Patient denies. Advance Directives: No Advance Directives Information Provided: Yes Healthcare Proxy: No Guardian: No Do you have thoughts of harming others: None Do you have a plan to hurt others: No Plan Recently lost weight without trying: No How much weight loss: Not applicable Eating poorly because of decreased appetite: No Nutrition screen score: 0 Nutrition Risks: No Nutritional Risk Patient : No : No Poor oral hygiene: No service: No Current occupational status: unemployed Sexual orientation: Don't Know Meds Allergies Allergy/AdvReac Type Severity Reaction Status Date / Time No Known Allergies Allergy Verified 12/06/21 09:33 Active Medications: Current Medications Acetaminophen (Acetaminophen 325 Mg Tablet) 650 mg PO Q6H PRN PRN Reason: Headache/Pain Mild Scale (1-3) Last Admin: 01/10/22 06:25 Dose: 650 mg Documented by: Al Hydroxide/Mg Hydroxide (Magnesium Hydrox/Alum Hydrox 30 Ml Oral.Susp) 30 ml PO Q6H PRN PRN Reason: Heartburn/Nausea Benzocaine (Throat Lozenge, Medicated Lozenge) 1 lozenge MUCOUS MEM Q2H PRN PRN Reason: Sore Throat Last Admin: 01/10/22 06:25 Dose: 1 lozenge Documented by: Buprenorphine/Naloxone (Buprenorphine/Naloxone 8/2 Mg Film) 1 film SUBLINGUAL TID MARISABEL Last Admin: 01/10/22 14:34 Dose: 1 film Documented by: Calcium Carbonate (Calcium Carbonate 750 Mg Tab.Chew) 750 mg PO Q4H PRN PRN Reason: acid reflux Last Admin: 01/07/22 22:46 Dose: 750 mg Documented by: Clonidine HCl (Clonidine Hcl 0.1 Mg Tablet) 0.1 mg PO TID MARISABEL; Protocol Last Admin: 01/10/22 14:36 Dose: Not Given Documented by: Docusate Sodium (Docusate Sodium 100 Mg Capsule) 100 mg PO BID [facility] Famotidine (Famotidine 20 Mg Tablet) 20 mg PO BID [facility] Last Admin: 01/10/22 09:05 Dose: 20 mg Documented by: Folic Acid (Folic Acid 1 Mg Tablet) 1 mg PO DAILY [facility] Last Admin: 01/10/22 09:05 Dose: 1 mg Documented by: Gabapentin (Gabapentin 600 Mg Tablet) 600 mg PO TID [facility] Last Admin: 01/10/22 14:34 Dose: 600 mg Documented by: Guaifenesin (Guaifenesin La 600 Mg Tab.Er.12h) 600 mg PO BID [facility] Last Admin: 01/10/22 16:02 Dose: 600 mg Documented by: Hydroxyzine HCl (Hydroxyzine Hcl 25 Mg Tablet) 25 mg PO BEDTIME PRN PRN Reason: Anxiety Last Admin: 01/10/22 01:06 Dose: 25 mg Documented by: Lamotrigine (Lamotrigine 25 Mg Tablet) 50 mg PO BEDTIME [facility] Last Admin: 01/09/22 20:40 Dose: 50 mg Documented by: Magnesium Hydroxide (Milk Of Magnesia 30 Ml Oral.Susp) 30 ml PO DAILY PRN PRN Reason: Constipation Last Admin: 01/09/22 20:14 Dose: 30 ml Documented by: Multivitamins/Vitamin C (Multivitamin Tablet) 1 tab PO DAILY [facility] Last Admin: 01/10/22 09:04 Dose: 1 tab Documented by: Nicotine (Nicotine 21 Mg Patch.Td24) 21 mg TRANSDERMA DAILY [facility] Last Admin: 01/10/22 09:04 Dose: 21 mg Documented by: Nicotine Polacrilex (Nicotine Polacrilex 2 Mg Gum) 4 mg BUCCAL Q2H PRN PRN Reason: Nicotine Cravings Last Admin: 01/09/22 15:59 Dose: 4 mg Documented by: Quetiapine Fumarate (Quetiapine Fumarate 100 Mg Tablet) 100 mg PO DAILY@0800,1500 [facility] Last Admin: 01/10/22 16:06 Dose: 100 mg Documented by: Quetiapine Fumarate (Quetiapine Fumarate 100 Mg Tablet) 100 mg PO Q6H PRN PRN Reason: Anxiety Last Admin: 01/10/22 12:51 Dose: 100 mg Documented by: Quetiapine Fumarate (Quetiapine Fumarate 200 Mg Tablet) 200 mg PO BEDTIME [facility] Last Admin: 01/09/22 20:40 Dose: 200 mg Documented by: Simethicone (Simethicone 80 Mg Tab.Chew) 80 mg PO TID [facility] Last Admin: 01/10/22 14:34 Dose: 80 mg Documented by: Thiamine HCl (Thiamine Hcl 100 Mg Tablet) 100 mg PO DAILY [facility] Last Admin: 01/10/22 09:05 Dose: 100 mg Documented by: Trazodone HCl (Trazodone Hcl 100 Mg Tablet) 200 mg PO BEDTIME [facility] Home Medications Medication Instructions Recorded Confirmed Last Taken Type buprenorphine 8 mg-naloxone 2 mg 1 strip SUBLINGUAL TID 01/04/22 01/04/22 Unknown History sublingual film clonidine HCl 0.1 mg tablet 0.1 mg PO TID 01/05/22 01/05/22 Unknown History docusate sodium 100 mg capsule 100 mg PO BID PRN 01/05/22 01/05/22 Unknown History famotidine 20 mg tablet 20 mg PO BID 01/05/22 01/05/22 Unknown History folic acid 1 mg tablet 1 mg PO DAILY 01/05/22 01/05/22 Unknown History gabapentin 600 mg tablet 600 mg PO TID 01/05/22 01/05/22 Unknown History lamotrigine 25 mg tablet 25 mg PO BEDTIME 01/05/22 01/05/22 Unknown History multivitamin 1 tab PO DAILY 01/05/22 01/05/22 Unknown History propranolol 10 mg tablet 20 mg PO TID 01/05/22 01/05/22 Unknown History quetiapine 100 mg tablet 100 mg PO DAILY@0800,1500 01/05/22 01/05/22 Unknown History quetiapine 100 mg tablet 100 mg PO Q6H PRN 01/05/22 01/05/22 Unknown History quetiapine 200 mg tablet 200 mg PO BEDTIME 01/05/22 01/05/22 Unknown History thiamine HCl (vitamin B1) 100 mg 100 mg PO DAILY 01/05/22 01/05/22 Unknown History tablet trazodone 50 mg tablet 50 mg PO BEDTIME PRN 01/05/22 01/05/22 Unknown History Results Labs CBC and Chem 7: 01/10/22 13:53 01/10/22 13:53 Labs: Laboratory Results - last 24 hr 01/10/22 01/10/22 13:53 13:53 MCV 95.5 MCH 31.6 MCHC 33.1 RDW 14.2 Plt Count 157 L D MPV 10.6 Immature Gran % (Auto) 0.2 Neut % (Auto) 43.7 L Lymph % (Auto) 45.6 H Tripp % (Auto) 7.6 Eos % (Auto) 2.9 Baso % (Auto) 0.0 Lymph # (Auto) 1.9 Tripp # (Auto) 0.3 Eos # (Auto) 0.1 Baso # (Auto) 0.0 Abs Immat Gran (auto) 0.01 Absolute Neuts (auto) 1.8 L Absolute Nucleated RBC 0.000 Nucleated RBC % (auto) 0.0 Anion Gap 11 L Estim Creat Clear Calc 98.3 Estimated GFR > 60 Random Glucose 82 Calcium 9.0 Total Bilirubin 0.3 AST 54 H ALT 105 H Alkaline Phosphatase 76 Total Protein 6.0 L Albumin 3.6 Lipase 5 L Assessment and Plan (1) Abdominal pain: Status: Acute Plan This is a 31 year old female with substance abuse, anxiety, bipolar admitted to [facility] now having abdominal pain nausea and vomiting abdominal pain likely gastroenteritis no fever, no wbc recommend bland diet, advance as tolerated will check cdif given recent admission to hospital if no improvement in pain can consider CT abdomen/pelvis mild transaminitis h/o HCV - untreated outpatient GI follow up thrombocytopenia mild ?r/t HCV vs etoh use polysubstance abuse no evidence of withdrawal at this time continue current management thank you for allowing us to participate in the care of this patient. Physical Exam Vital Signs: Last Vital Signs Temp 98.6 F 01/10/22 08:55 Pulse 92 01/10/22 08:55 Resp 16 01/10/22 08:55 BP 115/57 L 01/10/22 08:55 Pulse Ox 99 01/10/22 08:55 BMI result Body Mass Index 26.0 Const General: cooperative, no acute distress, alert and awake Nutritional Appearance: average body habitus Eyes Pupils: Equal, round and reactive pupils present Resp Effort & Inspection: normal respiratory effort and able to speak in complete sentences Auscultation: clear to auscultation bilaterally Cardio Heart sounds: S1 normal heart sound present and S2 normal heart sound present GI Inspection: No distended Palpation (GI): Soft to palpation and nontender Neuro Cranial nerves: Yes CN's II-XII intact bilaterally and Yes Equal, round and reactive pupils present Extrem Other: no leg edema
[2022-01-10 19:46] VITALS: BP 122/53; PULSE 108; RESP 18; TEMP 36.8; O2SAT 97
--- NOTE | 2022-01-10 20:14 | MHC.RECOVSUP ---
? Reason for consult:Recovery Support o ? ? ?Current location:306[address]2 o ? ? ?Identified substance use concern: SARBJIT with opiates, alcohol ? ?Intervention: o Community resources provided o Harm reduction discussion ? Plan: o Follow up tomorrow ? ? Additional information:?I was able to connect with patient; review community resources, harm reduction strategies and options for treatment. Patient is seeking treatment with local [facility] or [facility] and I connected patient with phone numbers to [facility] in [place] and [facility] in [place] for an intake. I also submitted a referral for a Labor Utilization Superintendent with [facility]. Will follow up tomorrow.
[2022-01-10] MEDS: traZODone HCL 100 MG TABLET 200 MG PO (20:40)
[2022-01-10] MEDS: QUEtiapine Fumarate 200 MG TABLET PO (20:40)
[2022-01-10] MEDS: Docusate Sodium 100 MG CAPSULE PO (20:40)
[2022-01-10] MEDS: lamoTRIgine 25 MG TABLET 50 MG PO (20:40)
[2022-01-10 23:05] LABS: CDiff Gene PCR NEGATIVE (Negative)
[2022-01-11 08:00] VITALS: BP 129/54; PULSE 81; RESP 16; TEMP 36.9; O2SAT 100
[2022-01-11] MEDS: Thiamine HCL 100 MG TABLET PO (08:05)
[2022-01-11] MEDS: Simethicone 80 MG TAB.CHEW PO ×3 (08:05→20:36)
[2022-01-11] MEDS: cloNIDine HCL 0.1 MG TABLET PO ×3 (08:05→20:37)
[2022-01-11] MEDS: Multivitamin TABLET 1 TAB PO (08:05)
[2022-01-11] MEDS: Famotidine 20 MG TABLET PO ×2 (08:05→20:37)
[2022-01-11] MEDS: guaiFENesin LA 600 MG TAB.ER.12H PO ×2 (08:05→20:36)
[2022-01-11] MEDS: Buprenorphine/Naloxone 8/2 mg FILM 1 FILM SUBLINGUAL ×3 (08:05→20:36)
[2022-01-11] MEDS: Docusate Sodium 100 MG CAPSULE PO ×2 (08:05→20:37)
[2022-01-11] MEDS: Gabapentin 600 MG TABLET PO ×3 (08:05→20:37)
[2022-01-11] MEDS: Folic Acid 1 MG TABLET PO (08:06)
[2022-01-11] MEDS: QUEtiapine Fumarate 100 MG TABLET PO ×4 (08:11→23:59)
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
[2022-01-11] MEDS: Nicotine 21 MG PATCH.TD24 TRANSDERMA (08:26)
[2022-01-11] MEDS: Acetaminophen 325 MG TABLET 650 MG PO (12:29)
[2022-01-11] MEDS: Throat Lozenge, Medicated LOZENGE 1 LOZENGE MUCOUS MEM (12:29)
[2022-01-11 15:45] LABS: Appearance Urine CLEAR; Color Urine YELLOW; Glucose Urine UA NEG (NEG); Leukocyte Esterase Urine 1+ (NEG); Nitrite Urine NEG (NEG); PH 5.5 (5.0-8.0); UACC Culture Trigger YES; Urine Blood NEG (NEG); Urine Ketones NEG (NEG); Urine Protein NEG (NEG-TRACE)
[2022-01-11 16:00] VITALS: BP 100/53; PULSE 91; RESP 16; TEMP 36.7; O2SAT 99
[2022-01-11 16:16] LABS: RBC Urine 0-2 /HPF (0)
[2022-01-11 16:17] LABS: Bacteria Urine TRACE /LPF; Granular Casts Urine 0-2 /LPF; Squamous Epithelial Cell Urine TRACE /LPF
[2022-01-11] MEDS: hydrOXYzine HCL 25 MG TABLET PO ×2 (17:06→23:59)
[2022-01-11] MEDS: Nicotine Polacrilex 2 MG GUM 4 MG BUCCAL (17:26)
[2022-01-11] MEDS: lamoTRIgine 25 MG TABLET 50 MG PO (20:37)
[2022-01-11] MEDS: QUEtiapine Fumarate 200 MG TABLET PO (20:37)
[2022-01-11 20:41] VITALS: BP 107/61; PULSE 93; TEMP 36.7; O2SAT 97
[2022-01-11] MEDS: traZODone HCL 100 MG TABLET 200 MG PO (22:04)
[2022-01-12 07:14] LABS: MANUAL DIFF FLAG NO
[2022-01-12 07:18] LABS: Basophils Percent Auto 0.2 % (0-2); Eosinophils Absolute Auto 0.2 X10*3/uL (0.0-0.4); Eosinophils Percent Auto 3.6 % (0-4); Hematocrit 31.7 % (37.0-47.0); Hemoglobin 10.3 g/dl (12.0-16.0); Imm Gran Abs Auto 0.01 X10*3/uL (0.00-0.03); Imm Gran Pct Auto 0.2 % (0.0-0.4); Lymphocytes Absolute Auto 1.9 X10*3/uL (1.2-4.9); Lymphocytes Percent Auto 36.4 % (20-40); Mean Corpuscular HGB Conc 32.5 g/dl (31.0-35.0); Mean Corpuscular Volume 95.5 fL (80.0-98.0); Mean Platelet Volume 10.3 fL (9.4-12.3); Monocytes Absolute Auto 0.4 X10*3/uL (0.1-1.2); Neutrophils Absolute Auto 2.7 x10*3/uL (2.0-8.3); Neutrophils Percent Auto 51.6 % (45-73); Platelet Count 156 X10*3/uL (160-400); Red Blood Count 3.32 X10*6/uL (4.20-5.50); Red Cell Distribution Width 14.2 % (11.0-16.0); White Blood Count 5.2 X10*3/uL (4.8-10.8)
[2022-01-12 09:24] VITALS: BP 128/58; PULSE 105; RESP 17; TEMP 37.1; O2SAT 99
[2022-01-12] MEDS: Nicotine 21 MG PATCH.TD24 TRANSDERMA (09:26)
[2022-01-12] MEDS: Simethicone 80 MG TAB.CHEW PO ×3 (09:27→20:16)
[2022-01-12] MEDS: Gabapentin 600 MG TABLET PO ×3 (09:28→20:16)
[2022-01-12] MEDS: guaiFENesin LA 600 MG TAB.ER.12H PO ×2 (09:28→20:16)
[2022-01-12] MEDS: cloNIDine HCL 0.1 MG TABLET PO ×2 (09:28→20:16)
[2022-01-12] MEDS: Docusate Sodium 100 MG CAPSULE PO ×2 (09:28→20:16)
[2022-01-12] MEDS: Multivitamin TABLET 1 TAB PO (09:28)
[2022-01-12] MEDS: Thiamine HCL 100 MG TABLET PO (09:28)
[2022-01-12] MEDS: Folic Acid 1 MG TABLET PO (09:28)
[2022-01-12] MEDS: Famotidine 20 MG TABLET PO ×2 (09:29→20:16)
[2022-01-12] MEDS: Buprenorphine/Naloxone 8/2 mg FILM 1 FILM SUBLINGUAL ×3 (09:29→20:16)
[2022-01-12] MEDS: QUEtiapine Fumarate 100 MG TABLET PO ×3 (09:36→16:45)
[2022-01-12 13:29] VITALS: BP 99/55; PULSE 104; RESP 16; TEMP 36.9; O2SAT 97
[2022-01-12] MEDS: Acetaminophen 325 MG TABLET 650 MG PO (16:33)
[2022-01-12] MEDS: hydrOXYzine HCL 25 MG TABLET PO (16:45)
--- NOTE | 2022-01-12 16:57 | HO.PSYCHPN ---
Subjective Subjective Date of Service: 01/12/22 Reason For Visit: SI Interim History: Patient reports she is doing better with sleep. She describes she has been depressed and anxious with decrease energy, anhedonia, lack of motivation. SI diminished and she feels safe on the unit. Pt reports feeling anxious. She endorses depressed mood, but more optimistic about her recovery. She presents as less labile. Intermittent right lower quadrant pain and N/V and diarrhea. Appetite is OK. Per nursing, pt more visible in the unit and attending groups. Review of Systems Review of Systems Constitutional : No Weight loss, No Fever, No Chills, No Night Sweats, No Fatigue, No Malaise ENT/Mouth : No Hearing loss, No Ear Pain, No Nasal Congestion, No Sinus Pain, No Hoarseness, No sore throat, No Rhinorrhea, No Swallowing Difficulty Eyes: No Eye Pain, No Swelling, No Redness, No Foreign Body, No Discharge, No Vision Changes Cardiovascular : No Chest Pain, No SOB, No Dyspnea on Exertion, No Orthopnea, No Edema, No Palpitations Respiratory : No Cough, No Sputum, No Wheezing, No Smoke Exposure, No Dyspnea Gastrointestinal : No Nausea, No Vomiting, No Diarrhea, No Constipation, No abdominal Pain, No Hematochezia, No Melena Genitourinary : no irregular bleeding, No Dysuria, No Urinary Frequency, No Hematuria, No Urinary Incontinence, No Urgency, No Flank Pain, No Urinary Flow Changes, No Hesitancy Musculoskeletal : No joint pain, No Myalgias, No Joint Swelling Skin : No Skin Lesions, No rash Neuro : No Weakness, No Numbness, No Paresthesias, No Loss of Consciousness, No Dizziness, No Headache Psych : Complaining of feeling anxious, depressed, vague suicidal ideation, no homicidal ideation, denies hallucinations Heme/Lymph: No Bruising, No Bleeding,No Lymphadenopathy Endocrine : No Polyuria, No Polydipsia, No Temperature Intolerance Yes all other systems are reviewed and are negative Constitutional: Denies chills, Reports fatigue, Reports lethargy, Reports night sweats, Denies stops breathing during sleep and Denies weakness Eyes: Reports no additional eye complaints Denies dizziness Cardiovascular: Denies chest pain, Denies chest pain at rest, Denies epigastric discomfort, Denies diaphoresis, Denies rapid heart rate, Denies leg edema, Denies lightheadedness and Denies dyspnea Respiratory: Denies cough and Denies dyspnea Gastrointestinal: Reports bloating, Reports constipation, Reports GI cramping, Reports excessive flatus, Reports diarrhea, Reports nausea and Reports vomiting Musculoskeletal: Denies muscle weakness Denies dizziness, Denies memory loss and Denies weakness Psychiatric: Reports depression, Reports difficulty concentrating, Reports hopelessness and Denies memory loss Endocrine: Reports fatigue Mental Status Exam Mental Status Exam Narrative: Appearance: casually groomed, fair hygiene, in NAD Behavior: cooperative Psychomotor: no agitation or retardation noted Speech: clear, normal rate/rhythm, volume spontaneous TP: linear TC: no signs of psychosis, wanting to continue treatment, depressed Mood: less depressed, anxious Affect: blunted HI: none SI: passive SI VH/AH: none Delusions: none Insight/judgment: poor x 2. Memory/cog: alert, oriented x 3. grossly intact to conversational testing. Diagnostics Vital Signs (24Hr): Vital Signs - 24 hr 01/12/22 09:24 01/12/22 13:29 01/12/22 20:19 Temperature 98.7 F 98.5 F 97.9 F Pulse Rate 105 H 104 H 83 Respiratory Rate 17 16 Blood Pressure 128/58 L 99/55 L 115/66 Pulse Oximetry 99 97 99 BMI result Body Mass Index 26.0 Labs Results: 01/12/22 07:00 01/10/22 13:53 Labs: Laboratory Results - last 48 hr 01/11/22 01/12/22 15:20 07:00 WBC 5.2 RBC 3.32 L Hgb 10.3 L Hct 31.7 L MCV 95.5 MCH 31.0 MCHC 32.5 RDW 14.2 Plt Count 156 L MPV 10.3 Immature Gran % (Auto) 0.2 Neut % (Auto) 51.6 Lymph % (Auto) 36.4 [place] % (Auto) 8.0 Eos % (Auto) 3.6 Baso % (Auto) 0.2 Lymph # (Auto) 1.9 [place] # (Auto) 0.4 Eos # (Auto) 0.2 Baso # (Auto) 0.0 Abs Immat Gran (auto) 0.01 Absolute Neuts (auto) 2.7 Absolute Nucleated RBC 0.000 Nucleated RBC % (auto) 0.0 Urine Color YELLOW Urine Appearance CLEAR Urine pH 5.5 Ur Specific [place] 1.010 Urine Protein NEG Urine Glucose (UA) NEG Urine Ketones NEG Urine Blood NEG Urine Nitrite NEG Ur Leukocyte Esterase 1+ H Urine RBC 0-2 Urine WBC 1-4 Ur Squamous Epith Cells TRACE Urine Bacteria TRACE Granular Casts 0-2 Medications Medications Current Medications Acetaminophen (Acetaminophen 325 Mg Tablet) 650 mg PO Q6H PRN PRN Reason: Headache/Pain Mild Scale (1-3) Last Admin: 01/12/22 16:33 Dose: 650 mg Documented by: Al Hydroxide/Mg Hydroxide (Magnesium Hydrox/Alum Hydrox 30 Ml Oral.Susp) 30 ml PO Q6H PRN PRN Reason: Heartburn/Nausea Benzocaine (Throat Lozenge, Medicated Lozenge) 1 lozenge MUCOUS MEM Q2H PRN PRN Reason: Sore Throat Last Admin: 01/11/22 12:29 Dose: 1 lozenge Documented by: Buprenorphine/Naloxone (Buprenorphine/Naloxone 8/2 Mg Film) 1 film SUBLINGUAL TID [facility] Last Admin: 01/12/22 20:16 Dose: 1 film Documented by: Calcium Carbonate (Calcium Carbonate 750 Mg Tab.Chew) 750 mg PO Q4H PRN PRN Reason: acid reflux Last Admin: 01/07/22 22:46 Dose: 750 mg Documented by: Clonidine HCl (Clonidine Hcl 0.1 Mg Tablet) 0.1 mg PO TID [facility]; Protocol Last Admin: 01/12/22 20:16 Dose: 0.1 mg Documented by: Docusate Sodium (Docusate Sodium 100 Mg Capsule) 100 mg PO BID [facility] Last Admin: 01/12/22 20:16 Dose: 100 mg Documented by: Escitalopram Oxalate (Escitalopram Oxalate 5 Mg Tablet) 5 mg PO DAILY [facility] Famotidine (Famotidine 20 Mg Tablet) 20 mg PO BID [facility] Last Admin: 01/12/22 20:16 Dose: 20 mg Documented by: Folic Acid (Folic Acid 1 Mg Tablet) 1 mg PO DAILY [facility] Last Admin: 01/12/22 09:28 Dose: 1 mg Documented by: Gabapentin (Gabapentin 600 Mg Tablet) 600 mg PO TID [facility] Last Admin: 01/12/22 20:16 Dose: 600 mg Documented by: Guaifenesin (Guaifenesin La 600 Mg Tab.Er.12h) 600 mg PO BID [facility] Last Admin: 01/12/22 20:16 Dose: 600 mg Documented by: Hydroxyzine HCl (Hydroxyzine Hcl 25 Mg Tablet) 25 mg PO Q6H PRN PRN Reason: Anxiety/sleep Last Admin: 01/12/22 16:45 Dose: 25 mg Documented by: Lamotrigine (Lamotrigine 25 Mg Tablet) 50 mg PO BEDTIME [facility] Last Admin: 01/12/22 20:16 Dose: 50 mg Documented by: Loperamide HCl (Loperamide Hcl 2 Mg Capsule) 2 mg PO Q6H PRN PRN Reason: diarrhea Magnesium Hydroxide (Milk Of Magnesia 30 Ml Oral.Susp) 30 ml PO DAILY PRN PRN Reason: Constipation Last Admin: 01/09/22 20:14 Dose: 30 ml Documented by: Multi-Ingred Cream/Lotion/Oil/Oint (Mineral Oil/Petrolatum,White 106 Gm Tube) 1 appl TOPICAL TID PRN PRN Reason: dry skin Last Admin: 01/12/22 21:23 Dose: 1 appl Documented by: Multivitamins/Vitamin C (Multivitamin Tablet) 1 tab PO DAILY [facility] Last Admin: 01/12/22 09:28 Dose: 1 tab Documented by: Nicotine (Nicotine 21 Mg Patch.Td24) 21 mg TRANSDERMA DAILY [facility] Last Admin: 01/12/22 09:26 Dose: 21 mg Documented by: Nicotine Polacrilex (Nicotine Polacrilex 2 Mg Gum) 4 mg BUCCAL Q2H PRN PRN Reason: Nicotine Cravings Last Admin: 01/11/22 17:26 Dose: 4 mg Documented by: Ondansetron HCl (Ondansetron Odt 4 Mg Tab.Rapdis) 4 mg TRANSLINGU Q6H PRN PRN Reason: Nausea and Vomiting Quetiapine Fumarate (Quetiapine Fumarate 100 Mg Tablet) 100 mg PO DAILY@0800,1500 [facility] Last Admin: 01/12/22 14:43 Dose: 100 mg Documented by: Quetiapine Fumarate (Quetiapine Fumarate 100 Mg Tablet) 100 mg PO Q6H PRN PRN Reason: Anxiety Last Admin: 01/12/22 16:45 Dose: 100 mg Documented by: Quetiapine Fumarate (Quetiapine Fumarate 200 Mg Tablet) 200 mg PO BEDTIME [facility] Last Admin: 01/12/22 20:16 Dose: 200 mg Documented by: Simethicone (Simethicone 80 Mg Tab.Chew) 80 mg PO TID [facility] Last Admin: 01/12/22 20:16 Dose: 80 mg Documented by: Thiamine HCl (Thiamine Hcl 100 Mg Tablet) 100 mg PO DAILY [facility] Last Admin: 01/12/22 09:28 Dose: 100 mg Documented by: Trazodone HCl (Trazodone Hcl 100 Mg Tablet) 200 mg PO BEDTIME [facility] Last Admin: 01/12/22 21:09 Dose: 200 mg Documented by: Allergies Allergies Allergy/AdvReac Type Severity Reaction Status Date / Time No Known Allergies Allergy Verified 12/06/21 09:33 Assessment & Plan Assessment & Plan (1) Alcohol use disorder, severe, dependence: Status: Acute Code(s): F10.20 - Alcohol dependence, uncomplicated (2) Bipolar 2 disorder: Status: Acute Code(s): F31.81 - Bipolar II disorder (3) Opioid use disorder: Status: Acute Code(s): F11.90 - Opioid use, unspecified, uncomplicated Plan PLAN 01/12/22: Add Lexapro 5 mg daily Repeat LFT's continue current medications- CBC normalized ANC. referrals to substance use residential treatments I spent minutes with the patient and/or on the patient floor today, greater than?50% of which was spent counseling/coordinating care. Guardian/Caregiver educated on: medication risk/benefits Reason for contiued inpatient stay Substantial Risk for: harm to self and inability to function
[2022-01-12] MEDS: lamoTRIgine 25 MG TABLET 50 MG PO (20:16)
[2022-01-12] MEDS: QUEtiapine Fumarate 200 MG TABLET PO (20:16)
[2022-01-12 20:19] VITALS: BP 115/66; PULSE 83; TEMP 36.6; O2SAT 99
[2022-01-12] MEDS: traZODone HCL 100 MG TABLET 200 MG PO (21:09)
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
[2022-01-12] MEDS: Mineral Oil/Petrolatum,White 106 GM Tube 1 APPL TOPICAL (21:23)
[2022-01-13] MEDS: QUEtiapine Fumarate 100 MG TABLET PO ×4 (03:55→14:48)
[2022-01-13 07:38] LABS: Alanine Aminotransferase 61 U/L (0-31); Albumin Level 3.6 g/dL (3.5-5.0); Alkaline Phosphatase 78 U/L (39-117); Aspartate Amino Transferase 26 U/L (5-31); Bilirubin Direct < 0.2 mg/dL (0.0-0.5); Bilirubin Total 0.3 mg/dL (0.0-1.0)
[2022-01-13] MEDS: Nicotine 21 MG PATCH.TD24 TRANSDERMA (09:25)
[2022-01-13] MEDS: Docusate Sodium 100 MG CAPSULE PO (09:26)
[2022-01-13] MEDS: Thiamine HCL 100 MG TABLET PO (09:26)
[2022-01-13] MEDS: Buprenorphine/Naloxone 8/2 mg FILM 1 FILM SUBLINGUAL ×3 (09:26→20:21)
[2022-01-13] MEDS: Gabapentin 600 MG TABLET PO ×3 (09:26→20:20)
[2022-01-13] MEDS: Simethicone 80 MG TAB.CHEW PO ×3 (09:26→20:21)
[2022-01-13] MEDS: guaiFENesin LA 600 MG TAB.ER.12H PO ×2 (09:27→20:20)
[2022-01-13] MEDS: Escitalopram Oxalate 5 MG TABLET PO (09:27)
[2022-01-13] MEDS: Multivitamin TABLET 1 TAB PO (09:27)
[2022-01-13] MEDS: Famotidine 20 MG TABLET PO ×2 (09:27→20:20)
[2022-01-13] MEDS: Folic Acid 1 MG TABLET PO (09:27)
[2022-01-13] MEDS: cloNIDine HCL 0.1 MG TABLET PO ×3 (09:28→20:20)
[2022-01-13 09:38] VITALS: BP 130/58; PULSE 90; RESP 16; TEMP 36.8; O2SAT 98
[2022-01-13 12:00] VITALS: BP 113/58; PULSE 90; TEMP 36.8; O2SAT 100
[2022-01-13] MEDS: hydrOXYzine HCL 25 MG TABLET PO (12:55)
--- NOTE | 2022-01-13 13:52 | P.PNPSI_ITS ---
Subjective Subjective Date of Service: 01/13/22 Reason For Visit: SI Interim History: Patient seen and discussed. She is increasingly irritable and feels her mind is racing. her mood switches from happy to angry and irritable. She is reactive and loud creating conflicts on the unit. She is difficult to redirect and is pressured. SI diminished and she feels safe on the unit. Pt reports feeling anxious. She endorses depressed mood, but more optimistic about her recovery. No GI symptoms today. Appetite is OK. Review of Systems Review of Systems Constitutional : No Weight loss, No Fever, No Chills, No Night Sweats, No Fatigue, No Malaise ENT/Mouth : No Hearing loss, No Ear Pain, No Nasal Congestion, No Sinus Pain, No Hoarseness, No sore throat, No Rhinorrhea, No Swallowing Difficulty Eyes: No Eye Pain, No Swelling, No Redness, No Foreign Body, No Discharge, No Vision Changes Cardiovascular : No Chest Pain, No SOB, No Dyspnea on Exertion, No Orthopnea, No Edema, No Palpitations Respiratory : No Cough, No Sputum, No Wheezing, No Smoke Exposure, No Dyspnea Gastrointestinal : No Nausea, No Vomiting, No Diarrhea, No Constipation, No abdominal Pain, No Hematochezia, No Melena Genitourinary : no irregular bleeding, No Dysuria, No Urinary Frequency, No Hematuria, No Urinary Incontinence, No Urgency, No Flank Pain, No Urinary Flow Changes, No Hesitancy Musculoskeletal : No joint pain, No Myalgias, No Joint Swelling Skin : No Skin Lesions, No rash Neuro : No Weakness, No Numbness, No Paresthesias, No Loss of Consciousness, No Dizziness, No Headache Psych : Complaining of feeling anxious, depressed, vague suicidal ideation, no homicidal ideation, denies hallucinations Heme/Lymph: No Bruising, No Bleeding,No Lymphadenopathy Endocrine : No Polyuria, No Polydipsia, No Temperature Intolerance Yes all other systems are reviewed and are negative Constitutional: Denies chills, Reports fatigue, Reports lethargy, Reports night sweats, Denies stops breathing during sleep and Denies weakness Eyes: Reports no additional eye complaints Denies dizziness Cardiovascular: Denies chest pain, Denies chest pain at rest, Denies epigastric discomfort, Denies diaphoresis, Denies rapid heart rate, Denies leg edema, Denies lightheadedness and Denies dyspnea Respiratory: Denies cough and Denies dyspnea Gastrointestinal: Reports bloating, Reports constipation, Reports GI cramping, Reports excessive flatus, Reports diarrhea, Reports nausea and Reports vomiting Musculoskeletal: Denies muscle weakness Denies dizziness, Denies memory loss and Denies weakness Psychiatric: Reports depression, Reports difficulty concentrating, Reports hopelessness and Denies memory loss Endocrine: Reports fatigue Mental Status Exam Mental Status Exam Narrative: Appearance: casually groomed, fair hygiene, in NAD Behavior: cooperative Psychomotor: restless with some irritability and Speech: clear, with pressured speech TP: perseverative TC: no signs of psychosis, wanting to continue treatment, depressed Mood: changes Affect: mildly irritable HI: none SI: passive SI VH/AH: none Delusions: none Insight/judgment: fair. Memory/cog: alert, oriented x 3. grossly intact to conversational testing. Diagnostics Vital Signs (24Hr): Vital Signs - 24 hr 01/12/22 20:19 01/13/22 09:38 Temperature 97.9 F 98.2 F Pulse Rate 83 90 Respiratory Rate 16 Blood Pressure 115/66 130/58 L Pulse Oximetry 99 98 BMI result Body Mass Index 26.0 Labs Results: 01/12/22 07:00 01/10/22 13:53 Labs: Laboratory Results - last 48 hr 01/11/22 01/12/22 01/13/22 15:20 07:00 07:12 WBC 5.2 RBC 3.32 L Hgb 10.3 L Hct 31.7 L MCV 95.5 MCH 31.0 MCHC 32.5 RDW 14.2 Plt Count 156 L MPV 10.3 Immature Gran % (Auto) 0.2 Neut % (Auto) 51.6 Lymph % (Auto) 36.4 [place] % (Auto) 8.0 Eos % (Auto) 3.6 Baso % (Auto) 0.2 Lymph # (Auto) 1.9 [place] # (Auto) 0.4 Eos # (Auto) 0.2 Baso # (Auto) 0.0 Abs Immat Gran (auto) 0.01 Absolute Neuts (auto) 2.7 Absolute Nucleated RBC 0.000 Nucleated RBC % (auto) 0.0 Total Bilirubin 0.3 Direct Bilirubin < 0.2 AST 26 D ALT 61 H Alkaline Phosphatase 78 Total Protein 6.0 L Albumin 3.6 Urine Color YELLOW Urine Appearance CLEAR Urine pH 5.5 Ur Specific [place] 1.010 Urine Protein NEG Urine Glucose (UA) NEG Urine Ketones NEG Urine Blood NEG Urine Nitrite NEG Ur Leukocyte Esterase 1+ H Urine RBC 0-2 Urine WBC 1-4 Ur Squamous Epith Cells TRACE Urine Bacteria TRACE Granular Casts 0-2 Medications Medications Current Medications Acetaminophen (Acetaminophen 325 Mg Tablet) 650 mg PO Q6H PRN PRN Reason: Headache/Pain Mild Scale (1-3) Last Admin: 01/12/22 16:33 Dose: 650 mg Documented by: Al Hydroxide/Mg Hydroxide (Magnesium Hydrox/Alum Hydrox 30 Ml Oral.Susp) 30 ml PO Q6H PRN PRN Reason: Heartburn/Nausea Benzocaine (Throat Lozenge, Medicated Lozenge) 1 lozenge MUCOUS MEM Q2H PRN PRN Reason: Sore Throat Last Admin: 01/11/22 12:29 Dose: 1 lozenge Documented by: Buprenorphine/Naloxone (Buprenorphine/Naloxone 8/2 Mg Film) 1 film SUBLINGUAL TID [facility] Last Admin: 01/13/22 09:26 Dose: 1 film Documented by: Calcium Carbonate (Calcium Carbonate 750 Mg Tab.Chew) 750 mg PO Q4H PRN PRN Reason: acid reflux Last Admin: 01/07/22 22:46 Dose: 750 mg Documented by: Clonidine HCl (Clonidine Hcl 0.1 Mg Tablet) 0.1 mg PO TID [facility]; Protocol Last Admin: 01/13/22 09:28 Dose: 0.1 mg Documented by: Docusate Sodium (Docusate Sodium 100 Mg Capsule) 100 mg PO BID [facility] Last Admin: 01/13/22 09:26 Dose: 100 mg Documented by: Escitalopram Oxalate (Escitalopram Oxalate 5 Mg Tablet) 5 mg PO DAILY [facility] Last Admin: 01/13/22 09:27 Dose: 5 mg Documented by: Famotidine (Famotidine 20 Mg Tablet) 20 mg PO BID [facility] Last Admin: 01/13/22 09:27 Dose: 20 mg Documented by: Folic Acid (Folic Acid 1 Mg Tablet) 1 mg PO DAILY [facility] Last Admin: 01/13/22 09:27 Dose: 1 mg Documented by: Gabapentin (Gabapentin 600 Mg Tablet) 600 mg PO TID [facility] Last Admin: 01/13/22 09:26 Dose: 600 mg Documented by: Guaifenesin (Guaifenesin La 600 Mg Tab.Er.12h) 600 mg PO BID [facility] Last Admin: 01/13/22 09:27 Dose: 600 mg Documented by: Hydroxyzine HCl (Hydroxyzine Hcl 25 Mg Tablet) 25 mg PO Q6H PRN PRN Reason: Anxiety/sleep Last Admin: 01/13/22 12:55 Dose: 25 mg Documented by: Lamotrigine (Lamotrigine 25 Mg Tablet) 50 mg PO BEDTIME [facility] Last Admin: 01/12/22 20:16 Dose: 50 mg Documented by: Loperamide HCl (Loperamide Hcl 2 Mg Capsule) 2 mg PO Q6H PRN PRN Reason: diarrhea Magnesium Hydroxide (Milk Of Magnesia 30 Ml Oral.Susp) 30 ml PO DAILY PRN PRN Reason: Constipation Last Admin: 01/09/22 20:14 Dose: 30 ml Documented by: Multi-Ingred Cream/Lotion/Oil/Oint (Mineral Oil/Petrolatum,White 106 Gm Tube) 1 appl TOPICAL TID PRN PRN Reason: dry skin Last Admin: 01/12/22 21:23 Dose: 1 appl Documented by: Multivitamins/Vitamin C (Multivitamin Tablet) 1 tab PO DAILY [facility] Last Admin: 01/13/22 09:27 Dose: 1 tab Documented by: Nicotine (Nicotine 21 Mg Patch.Td24) 21 mg TRANSDERMA DAILY [facility] Last Admin: 01/13/22 09:25 Dose: 21 mg Documented by: Nicotine Polacrilex (Nicotine Polacrilex 2 Mg Gum) 4 mg BUCCAL Q2H PRN PRN Reason: Nicotine Cravings Last Admin: 01/11/22 17:26 Dose: 4 mg Documented by: Ondansetron HCl (Ondansetron Odt 4 Mg Tab.Rapdis) 4 mg TRANSLINGU Q6H PRN PRN Reason: Nausea and Vomiting Quetiapine Fumarate (Quetiapine Fumarate 100 Mg Tablet) 100 mg PO DAILY@0800,1500 [facility] Last Admin: 01/13/22 09:36 Dose: 100 mg Documented by: Quetiapine Fumarate (Quetiapine Fumarate 100 Mg Tablet) 100 mg PO Q6H PRN PRN Reason: Anxiety Last Admin: 01/13/22 12:56 Dose: 100 mg Documented by: Quetiapine Fumarate (Quetiapine Fumarate 200 Mg Tablet) 200 mg PO BEDTIME [facility] Last Admin: 01/12/22 20:16 Dose: 200 mg Documented by: Simethicone (Simethicone 80 Mg Tab.Chew) 80 mg PO TID [facility] Last Admin: 01/13/22 09:26 Dose: 80 mg Documented by: Thiamine HCl (Thiamine Hcl 100 Mg Tablet) 100 mg PO DAILY [facility] Last Admin: 01/13/22 09:26 Dose: 100 mg Documented by: Trazodone HCl (Trazodone Hcl 100 Mg Tablet) 200 mg PO BEDTIME [facility] Last Admin: 01/12/22 21:09 Dose: 200 mg Documented by: Allergies Allergies Allergy/AdvReac Type Severity Reaction Status Date / Time No Known Allergies Allergy Verified 12/06/21 09:33 Assessment & Plan Assessment & Plan (1) Alcohol use disorder, severe, dependence: Status: Acute Code(s): F10.20 - Alcohol dependence, uncomplicated (2) Bipolar 2 disorder: Status: Acute Code(s): F31.81 - Bipolar II disorder (3) Opioid use disorder: Status: Acute Code(s): F11.90 - Opioid use, unspecified, uncomplicated Plan PLAN 01/12/22: Add Lexapro 5 mg daily Repeat LFT's continue current medications- CBC normalized ANC. referrals to substance use residential treatments 01/13/22: DC Lexapro Trial Trileptal 300 mg BID for mood stabilization and irritability I spent minutes with the patient and/or on the patient floor today, greater than?50% of which was spent counseling/coordinating care. Patient educated on: medication risk/benefits Reason for contiued inpatient stay Substantial Risk for: harm to self and rapid decompensation
[2022-01-13] MEDS: OXcarbazepine 300 MG TABLET PO ×2 (14:33→20:21)
[2022-01-13] MEDS: Loperamide HCl 2 MG CAPSULE PO (18:46)
--- NOTE | 2022-01-13 19:24 | PC.NURSE ---
Pt complained of diarrhea x2 and stated she is also experiencing night sweats. This RN reached out to Dr. Elam who is aware and recommended imodium which was administered, effectiveness pending.
[2022-01-13] MEDS: lamoTRIgine 25 MG TABLET 50 MG PO (20:19)
[2022-01-13] MEDS: QUEtiapine Fumarate 200 MG TABLET PO (20:20)
[2022-01-13 20:27] VITALS: BP 107/57; PULSE 97; TEMP 36.5; O2SAT 97
[2022-01-13] MEDS: traZODone HCL 100 MG TABLET 200 MG PO (20:32)
[2022-01-14] MEDS: hydrOXYzine HCL 25 MG TABLET PO (03:06)
[2022-01-14] MEDS: QUEtiapine Fumarate 100 MG TABLET PO ×4 (03:06→14:59)
[2022-01-14 09:00] VITALS: BP 116/53; PULSE 108; RESP 12; TEMP 36.7; O2SAT 98
[2022-01-14] MEDS: Famotidine 20 MG TABLET PO ×2 (09:20→20:34)
[2022-01-14] MEDS: guaiFENesin LA 600 MG TAB.ER.12H PO ×2 (09:20→20:34)
[2022-01-14] MEDS: Folic Acid 1 MG TABLET PO (09:20)
[2022-01-14] MEDS: Thiamine HCL 100 MG TABLET PO (09:20)
[2022-01-14] MEDS: Gabapentin 600 MG TABLET PO ×3 (09:21→20:34)
[2022-01-14] MEDS: Simethicone 80 MG TAB.CHEW PO ×3 (09:21→20:36)
[2022-01-14] MEDS: cloNIDine HCL 0.1 MG TABLET PO ×3 (09:21→20:49)
[2022-01-14] MEDS: OXcarbazepine 300 MG TABLET PO ×2 (09:22→20:35)
[2022-01-14] MEDS: Multivitamin TABLET 1 TAB PO (09:22)
[2022-01-14] MEDS: Nicotine 21 MG PATCH.TD24 TRANSDERMA (09:23)
[2022-01-14] MEDS: Loperamide HCl 2 MG CAPSULE PO (09:24)
[2022-01-14] MEDS: Buprenorphine/Naloxone 8/2 mg FILM 1 FILM SUBLINGUAL ×3 (09:25→20:38)
--- NOTE | 2022-01-14 13:26 | HO.PSYCHPN ---
Subjective Subjective Date of Service: 01/14/22 Reason For Visit: SI Subjective Notes: Conditional Voluntary Interim History: Pt reports she had incident in unit last night. She has some insight into she notes that her reaction to argument with peer (over the TV and show they were watching) was exaggerated. Pt reports feeling like she does not have control over how she reacts when feeling frustrated. She reports feeling anxious, appears dysphoric. She reports difficulty staying asleep. continues to report sweating at night. She also reports feeling overwhelmed with not having plan after this admission- especially a secured bed in residential substance use treatment. Pt reports she worries that she is left on streets, she will continue to use or quickly relapse and this will take a significant toll on her mental health. She has been attending groups. Today, again she had episode of diarrhea, abdominal pain. LFT and WBC and ANC much improved. No vomit. afebrile. Medication Compliance: Yes Side effects from medications: No Attending Groups: Yes Review of Systems Acute medical concerns: No Review of Systems Review of Systems Constitutional : No Weight loss, No Fever, No Chills, No Night Sweats, No Fatigue, No Malaise ENT/Mouth : No Hearing loss, No Ear Pain, No Nasal Congestion, No Sinus Pain, No Hoarseness, No sore throat, No Rhinorrhea, No Swallowing Difficulty Eyes: No Eye Pain, No Swelling, No Redness, No Foreign Body, No Discharge, No Vision Changes Cardiovascular : No Chest Pain, No SOB, No Dyspnea on Exertion, No Orthopnea, No Edema, No Palpitations Respiratory : No Cough, No Sputum, No Wheezing, No Smoke Exposure, No Dyspnea Gastrointestinal : No Nausea, No Vomiting, No Diarrhea, No Constipation, No abdominal Pain, No Hematochezia, No Melena Genitourinary : no irregular bleeding, No Dysuria, No Urinary Frequency, No Hematuria, No Urinary Incontinence, No Urgency, No Flank Pain, No Urinary Flow Changes, No Hesitancy Musculoskeletal : No joint pain, No Myalgias, No Joint Swelling Skin : No Skin Lesions, No rash Neuro : No Weakness, No Numbness, No Paresthesias, No Loss of Consciousness, No Dizziness, No Headache Psych : Complaining of feeling anxious, depressed, vague suicidal ideation, no homicidal ideation, denies hallucinations Heme/Lymph: No Bruising, No Bleeding,No Lymphadenopathy Endocrine : No Polyuria, No Polydipsia, No Temperature Intolerance Yes all other systems are reviewed and are negative Constitutional: Denies chills, Reports fatigue, Reports lethargy, Reports night sweats, Denies stops breathing during sleep and Denies weakness Eyes: Reports no additional eye complaints Denies dizziness Cardiovascular: Denies chest pain, Denies chest pain at rest, Denies epigastric discomfort, Denies diaphoresis, Denies rapid heart rate, Denies leg edema, Denies lightheadedness and Denies dyspnea Respiratory: Denies cough and Denies dyspnea Gastrointestinal: Reports bloating, Reports constipation, Reports GI cramping, Reports excessive flatus, Reports diarrhea, Reports nausea and Reports vomiting Musculoskeletal: Denies muscle weakness Denies dizziness, Denies memory loss and Denies weakness Psychiatric: Reports depression, Reports difficulty concentrating, Reports hopelessness and Denies memory loss Endocrine: Reports fatigue Mental Status Exam Mental Status Exam Narrative: Appearance: casually groomed, fair hygiene, in NAD Behavior: cooperative Psychomotor: restless with some irritability and Speech: clear, with pressured speech TP: perseverative TC: no signs of psychosis, wanting to continue treatment, depressed Mood: changes Affect: mildly irritable HI: none SI: passive SI VH/AH: none Delusions: none Insight/judgment: fair. Memory/cog: alert, oriented x 3. grossly intact to conversational testing. Diagnostics Vital Signs (24Hr): Vital Signs - 24 hr 01/13/22 20:27 01/14/22 09:00 01/14/22 15:27 Temperature 97.7 F 98.0 F Pulse Rate 97 108 H 105 H Respiratory Rate 12 18 Blood Pressure 107/57 L 116/53 L 121/60 Pulse Oximetry 97 98 98 BMI result Body Mass Index 26.0 Labs Results: 01/12/22 07:00 01/10/22 13:53 Labs: Laboratory Results - last 48 hr 01/13/22 07:12 Total Bilirubin 0.3 Direct Bilirubin < 0.2 AST 26 D ALT 61 H Alkaline Phosphatase 78 Total Protein 6.0 L Albumin 3.6 Medications Medications Current Medications Acetaminophen (Acetaminophen 325 Mg Tablet) 650 mg PO Q6H PRN PRN Reason: Headache/Pain Mild Scale (1-3) Last Admin: 01/12/22 16:33 Dose: 650 mg Documented by: Al Hydroxide/Mg Hydroxide (Magnesium Hydrox/Alum Hydrox 30 Ml Oral.Susp) 30 ml PO Q6H PRN PRN Reason: Heartburn/Nausea Benzocaine (Throat Lozenge, Medicated Lozenge) 1 lozenge MUCOUS MEM Q2H PRN PRN Reason: Sore Throat Last Admin: 01/11/22 12:29 Dose: 1 lozenge Documented by: Buprenorphine/Naloxone (Buprenorphine/Naloxone 8/2 Mg Film) 1 film SUBLINGUAL TID [facility] Last Admin: 01/14/22 14:56 Dose: 1 film Documented by: Calcium Carbonate (Calcium Carbonate 750 Mg Tab.Chew) 750 mg PO Q4H PRN PRN Reason: acid reflux Last Admin: 01/07/22 22:46 Dose: 750 mg Documented by: Clonidine HCl (Clonidine Hcl 0.1 Mg Tablet) 0.1 mg PO TID [facility]; Protocol Last Admin: 01/14/22 14:57 Dose: 0.1 mg Documented by: Docusate Sodium (Docusate Sodium 100 Mg Capsule) 100 mg PO BID [facility] Last Admin: 01/14/22 09:27 Dose: Not Given Documented by: Famotidine (Famotidine 20 Mg Tablet) 20 mg PO BID [facility] Last Admin: 01/14/22 09:20 Dose: 20 mg Documented by: Folic Acid (Folic Acid 1 Mg Tablet) 1 mg PO DAILY [facility] Last Admin: 01/14/22 09:20 Dose: 1 mg Documented by: Gabapentin (Gabapentin 600 Mg Tablet) 600 mg PO TID [facility] Last Admin: 01/14/22 14:56 Dose: 600 mg Documented by: Guaifenesin (Guaifenesin La 600 Mg Tab.Er.12h) 600 mg PO BID [facility] Last Admin: 01/14/22 09:20 Dose: 600 mg Documented by: Hydroxyzine HCl (Hydroxyzine Hcl 25 Mg Tablet) 25 mg PO Q6H PRN PRN Reason: Anxiety/sleep Last Admin: 01/14/22 03:06 Dose: 25 mg Documented by: Lamotrigine (Lamotrigine 25 Mg Tablet) 50 mg PO BEDTIME [facility] Last Admin: 01/13/22 20:19 Dose: 50 mg Documented by: Loperamide HCl (Loperamide Hcl 2 Mg Capsule) 2 mg PO Q6H PRN PRN Reason: diarrhea Last Admin: 01/14/22 09:24 Dose: 2 mg Documented by: Magnesium Hydroxide (Milk Of Magnesia 30 Ml Oral.Susp) 30 ml PO DAILY PRN PRN Reason: Constipation Last Admin: 01/09/22 20:14 Dose: 30 ml Documented by: Multi-Ingred Cream/Lotion/Oil/Oint (Mineral Oil/Petrolatum,White 106 Gm Tube) 1 appl TOPICAL TID PRN PRN Reason: dry skin Last Admin: 01/12/22 21:23 Dose: 1 appl Documented by: Multivitamins/Vitamin C (Multivitamin Tablet) 1 tab PO DAILY [facility] Last Admin: 01/14/22 09:22 Dose: 1 tab Documented by: Nicotine (Nicotine 21 Mg Patch.Td24) 21 mg TRANSDERMA DAILY [facility] Last Admin: 01/14/22 09:23 Dose: 21 mg Documented by: Nicotine Polacrilex (Nicotine Polacrilex 2 Mg Gum) 4 mg BUCCAL Q2H PRN PRN Reason: Nicotine Cravings Last Admin: 01/11/22 17:26 Dose: 4 mg Documented by: Ondansetron HCl (Ondansetron Odt 4 Mg Tab.Rapdis) 4 mg TRANSLINGU Q6H PRN PRN Reason: Nausea and Vomiting Oxcarbazepine (Oxcarbazepine 300 Mg Tablet) 300 mg PO BID [facility] Last Admin: 01/14/22 09:22 Dose: 300 mg Documented by: Quetiapine Fumarate (Quetiapine Fumarate 100 Mg Tablet) 100 mg PO DAILY@0800,1500 [facility] Last Admin: 01/14/22 14:59 Dose: 100 mg Documented by: Quetiapine Fumarate (Quetiapine Fumarate 100 Mg Tablet) 100 mg PO Q6H PRN PRN Reason: Anxiety Last Admin: 01/14/22 11:53 Dose: 100 mg Documented by: Quetiapine Fumarate (Quetiapine Fumarate 200 Mg Tablet) 200 mg PO BEDTIME [facility] Last Admin: 01/13/22 20:20 Dose: 200 mg Documented by: Simethicone (Simethicone 80 Mg Tab.Chew) 80 mg PO TID [facility] Last Admin: 01/14/22 14:56 Dose: 80 mg Documented by: Thiamine HCl (Thiamine Hcl 100 Mg Tablet) 100 mg PO DAILY [facility] Last Admin: 01/14/22 09:20 Dose: 100 mg Documented by: Trazodone HCl (Trazodone Hcl 100 Mg Tablet) 200 mg PO BEDTIME [facility] Last Admin: 01/13/22 20:32 Dose: 200 mg Documented by: Allergies Allergies Allergy/AdvReac Type Severity Reaction Status Date / Time No Known Allergies Allergy Verified 12/06/21 09:33 Assessment & Plan Assessment & Plan (1) Alcohol use disorder, severe, dependence: Status: Acute Code(s): F10.20 - Alcohol dependence, uncomplicated (2) Bipolar 2 disorder: Status: Acute Code(s): F31.81 - Bipolar II disorder (3) Opioid use disorder: Status: Acute Code(s): F11.90 - Opioid use, unspecified, uncomplicated Plan PLAN 01/12/22: Add Lexapro 5 mg daily Repeat LFT's continue current medications- CBC normalized ANC. referrals to substance use residential treatments 01/13/22: MICHAEL Lexapro Trial Trileptal 300 mg BID for mood stabilization and irritability 01/14/22- continue current medications. I spent minutes with the patient and/or on the patient floor today, greater than?50% of which was spent counseling/coordinating care. Reason for contiued inpatient stay Substantial Risk for: harm to self and inability to function
--- NOTE | 2022-01-14 14:31 | PC.NURSE ---
Patient reporting persistent, but intermittent diarrhea and abdominal bloating. Diarrhea unrelieved with Imodium. Patient denies any symptoms of withdrawal. Provider notified.
[2022-01-14 15:27] VITALS: BP 121/60; PULSE 105; RESP 18; O2SAT 98
[2022-01-14] MEDS: Nicotine Polacrilex 2 MG GUM 4 MG BUCCAL (19:37)
[2022-01-14] MEDS: QUEtiapine Fumarate 200 MG TABLET PO (20:34)
[2022-01-14] MEDS: lamoTRIgine 25 MG TABLET 50 MG PO (20:35)
[2022-01-14 20:53] VITALS: BP 105/55; PULSE 86; TEMP 36.6; O2SAT 98
[2022-01-14] MEDS: traZODone HCL 100 MG TABLET 200 MG PO (21:17)
[2022-01-15] MEDS: Loperamide HCl 2 MG CAPSULE PO ×2 (00:52→12:44)
[2022-01-15] MEDS: hydrOXYzine HCL 25 MG TABLET PO ×2 (00:52→20:33)
[2022-01-15] MEDS: QUEtiapine Fumarate 100 MG TABLET PO ×4 (00:53→15:24)
[2022-01-15] MEDS: Ibuprofen 800 MG TABLET PO (00:53)
--- NOTE | 2022-01-15 07:33 | PM.CNGS ---
History of Present Illness Consult details Consult date: 01/15/22 Narrative: 31 year old female referred for mt for an abnormal CT scan. She was admitted to last 01/08/2021 because of suicidal ideations. She does have a significant history of referral issues and has polysubstance abuse as well. She had been complaining of diarrhea, crampy abdominal pain for the past 4 days or so. The diarrhea is not bloody. She apparently had 1 episode of nausea and vomiting yesterday as well We therefore had a CAT scan done which showed question partial small-bowel obstruction. She continues to have bowel movements which she says this watery. She is passing flatus. She says she does not have significant pain. He has been tolerating oral intake. Review of Systems Constitutional: Constitutional: Denies chills and Denies fever(s) Cardiovascular: Cardiovascular: Denies chest pain Respiratory: Respiratory: Denies no additional respiratory complaints Genitourinary: Genitourinary: Denies no additional female genitourinary complaints Musculoskeletal: Musculoskeletal: Denies no additional musculoskeletal complaints Neurologic: Denies system reviewed and no additional complaints, except as documented PMFSH Past Medical History Medical History Alcohol use disorder, severe, dependence Alcohol use disorder, severe, dependence Cocaine use Cocaine use disorder Cocaine use disorder JOANN (generalized anxiety disorder) History of hepatitis C MDD (major depressive disorder), recurrent episode, moderate Opiate abuse, continuous Opioid use disorder Opioid use disorder, moderate, dependence Polysubstance abuse Smoker Functional capacity: independent ambulation Surgical History Surgical History S/P laparoscopic appendectomy Social History Social History Household Members: Significant Other Household Members Other:: ex boyfriend Housing: Apartment Housing Other:: Rented a room with ex in an apartment Do you presently have visiting nurse or other home services: No Alcohol intake: current Patient Tobacco Use Status: Current everyday Tobacco user Tobacco use type: Cigarette Cigarette Packs Per Day: 0.75 Cigarettes Per Day: 15.0 Years Smoked: 13 Smoked in Last 30 Days: Yes e-Cigarette/Vaping Use: Never Used Patient Interested in Nicotine Replacement: Yes Patient Given Instructions on How to Stop Smoking: No Second Hand Smoke Exposure: Yes Use of substances other than those prescribed or required for medical reasons: Yes Substance Use Type: Crack/Cocaine and Heroin Substance Use Frequency: Occasionally Last Used Substance: Days (ago) Last Used Substance Other:: January 03 2022 Currently Displaying Signs/Symptoms of Drug Intoxication Withdrawal: No Any prior treatment program specific to substance use: Yes Have you been hit, kicked, punched, or otherwise hurt by someone within the past year? If so, by whom?: No Do you feel safe in your current relationship?: No Is there a partner from a previous relationship who is making you feel unsafe now?: No Are you made to feel afraid or neglected: No Spiritual Healthcare Practices: Patient denies. Pentecostal Healthcare Practices: Patient denies. Cultural Healthcare Practices: Patient denies. Advance Directives: No Advance Directives Information Provided: Yes Healthcare Proxy: No Guardian: No Do you have thoughts of harming others: None Do you have a plan to hurt others: No Plan Recently lost weight without trying: No How much weight loss: Not applicable Eating poorly because of decreased appetite: No Nutrition screen score: 0 Nutrition Risks: No Nutritional Risk Patient : No : No Poor oral hygiene: No service: No Current occupational status: unemployed Sexual orientation: Don't Know Meds Allergies Allergy/AdvReac Type Severity Reaction Status Date / Time No Known Allergies Allergy Verified 12/06/21 09:33 Active Medications: Current Medications Acetaminophen (Acetaminophen 325 Mg Tablet) 650 mg PO Q6H PRN PRN Reason: Headache/Pain Mild Scale (1-3) Last Admin: 01/12/22 16:33 Dose: 650 mg Documented by: Al Hydroxide/Mg Hydroxide (Magnesium Hydrox/Alum Hydrox 30 Ml Oral.Susp) 30 ml PO Q6H PRN PRN Reason: Heartburn/Nausea Benzocaine (Throat Lozenge, Medicated Lozenge) 1 lozenge MUCOUS MEM Q2H PRN PRN Reason: Sore Throat Last Admin: 01/11/22 12:29 Dose: 1 lozenge Documented by: Buprenorphine/Naloxone (Buprenorphine/Naloxone 8/2 Mg Film) 1 film SUBLINGUAL TID MARISABEL Last Admin: 01/14/22 20:38 Dose: 1 film Documented by: Calcium Carbonate (Calcium Carbonate 750 Mg Tab.Chew) 750 mg PO Q4H PRN PRN Reason: acid reflux Last Admin: 01/07/22 22:46 Dose: 750 mg Documented by: Clonidine HCl (Clonidine Hcl 0.1 Mg Tablet) 0.1 mg PO TID [facility]; Protocol Last Admin: 01/14/22 20:49 Dose: 0.1 mg Documented by: Docusate Sodium (Docusate Sodium 100 Mg Capsule) 100 mg PO BID [facility] Last Admin: 01/14/22 20:40 Dose: Not Given Documented by: Famotidine (Famotidine 20 Mg Tablet) 20 mg PO BID [facility] Last Admin: 01/14/22 20:34 Dose: 20 mg Documented by: Folic Acid (Folic Acid 1 Mg Tablet) 1 mg PO DAILY [facility] Last Admin: 01/14/22 09:20 Dose: 1 mg Documented by: Gabapentin (Gabapentin 600 Mg Tablet) 600 mg PO TID [facility] Last Admin: 01/14/22 20:34 Dose: 600 mg Documented by: Guaifenesin (Guaifenesin La 600 Mg Tab.Er.12h) 600 mg PO BID [facility] Last Admin: 01/14/22 20:34 Dose: 600 mg Documented by: Hydroxyzine HCl (Hydroxyzine Hcl 25 Mg Tablet) 25 mg PO Q6H PRN PRN Reason: Anxiety/sleep Last Admin: 01/15/22 00:52 Dose: 25 mg Documented by: Ibuprofen (Ibuprofen 800 Mg Tablet) 800 mg PO Q8H PRN PRN Reason: mod pain Last Admin: 01/15/22 00:53 Dose: 800 mg Documented by: Lamotrigine (Lamotrigine 25 Mg Tablet) 50 mg PO BEDTIME [facility] Last Admin: 01/14/22 20:35 Dose: 50 mg Documented by: Loperamide HCl (Loperamide Hcl 2 Mg Capsule) 2 mg PO Q6H PRN PRN Reason: diarrhea Last Admin: 01/15/22 00:52 Dose: 2 mg Documented by: Magnesium Hydroxide (Milk Of Magnesia 30 Ml Oral.Susp) 30 ml PO DAILY PRN PRN Reason: Constipation Last Admin: 01/09/22 20:14 Dose: 30 ml Documented by: Multi-Ingred Cream/Lotion/Oil/Oint (Mineral Oil/Petrolatum,White 106 Gm Tube) 1 appl TOPICAL TID PRN PRN Reason: dry skin Last Admin: 01/12/22 21:23 Dose: 1 appl Documented by: Multivitamins/Vitamin C (Multivitamin Tablet) 1 tab PO DAILY [facility] Last Admin: 01/14/22 09:22 Dose: 1 tab Documented by: Nicotine (Nicotine 21 Mg Patch.Td24) 21 mg TRANSDERMA DAILY [facility] Last Admin: 01/14/22 09:23 Dose: 21 mg Documented by: Nicotine Polacrilex (Nicotine Polacrilex 2 Mg Gum) 4 mg BUCCAL Q2H PRN PRN Reason: Nicotine Cravings Last Admin: 01/14/22 19:37 Dose: 4 mg Documented by: Ondansetron HCl (Ondansetron Odt 4 Mg Tab.Rapdis) 4 mg TRANSLINGU Q6H PRN PRN Reason: Nausea and Vomiting Oxcarbazepine (Oxcarbazepine 300 Mg Tablet) 300 mg PO BID [facility] Last Admin: 01/14/22 20:35 Dose: 300 mg Documented by: Quetiapine Fumarate (Quetiapine Fumarate 100 Mg Tablet) 100 mg PO DAILY@0800,1500 [facility] Last Admin: 01/14/22 14:59 Dose: 100 mg Documented by: Quetiapine Fumarate (Quetiapine Fumarate 100 Mg Tablet) 100 mg PO Q6H PRN PRN Reason: Anxiety Last Admin: 01/15/22 00:53 Dose: 100 mg Documented by: Quetiapine Fumarate (Quetiapine Fumarate 200 Mg Tablet) 200 mg PO BEDTIME [facility] Last Admin: 01/14/22 20:34 Dose: 200 mg Documented by: Simethicone (Simethicone 80 Mg Tab.Chew) 80 mg PO TID [facility] Last Admin: 01/14/22 20:36 Dose: 80 mg Documented by: Thiamine HCl (Thiamine Hcl 100 Mg Tablet) 100 mg PO DAILY [facility] Last Admin: 01/14/22 09:20 Dose: 100 mg Documented by: Trazodone HCl (Trazodone Hcl 100 Mg Tablet) 200 mg PO BEDTIME [facility] Last Admin: 01/14/22 21:17 Dose: 200 mg Documented by: Home Medications Medication Instructions Recorded Confirmed Last Taken Type buprenorphine 8 mg-naloxone 2 mg 1 strip SUBLINGUAL TID 01/04/22 01/04/22 Unknown History sublingual film clonidine HCl 0.1 mg tablet 0.1 mg PO TID 01/05/22 01/05/22 Unknown History docusate sodium 100 mg capsule 100 mg PO BID PRN 01/05/22 01/05/22 Unknown History famotidine 20 mg tablet 20 mg PO BID 01/05/22 01/05/22 Unknown History folic acid 1 mg tablet 1 mg PO DAILY 01/05/22 01/05/22 Unknown History gabapentin 600 mg tablet 600 mg PO TID 01/05/22 01/05/22 Unknown History lamotrigine 25 mg tablet 25 mg PO BEDTIME 01/05/22 01/05/22 Unknown History multivitamin 1 tab PO DAILY 01/05/22 01/05/22 Unknown History propranolol 10 mg tablet 20 mg PO TID 01/05/22 01/05/22 Unknown History quetiapine 100 mg tablet 100 mg PO DAILY@0800,1500 01/05/22 01/05/22 Unknown History quetiapine 100 mg tablet 100 mg PO Q6H PRN 01/05/22 01/05/22 Unknown History quetiapine 200 mg tablet 200 mg PO BEDTIME 01/05/22 01/05/22 Unknown History thiamine HCl (vitamin B1) 100 mg 100 mg PO DAILY 01/05/22 01/05/22 Unknown History tablet trazodone 50 mg tablet 50 mg PO BEDTIME PRN 01/05/22 01/05/22 Unknown History Physical Exam Vital Signs: Vital Signs: Last Vital Signs Temp 97.9 F 01/14/22 20:53 Pulse 86 01/14/22 20:53 Resp 18 01/14/22 15:27 BP 105/55 L 01/14/22 20:53 Pulse Ox 98 01/14/22 20:53 BMI result Body Mass Index 26.0 Const: General: comfortable and no acute distress Resp: Effort & Inspection: normal respiratory effort Cardio: Rate: regular rate GI: Inspection: No distended Palpation (GI): Soft to palpation, not firm, nontender and no guarding Results Labs Result diagrams: 01/12/22 07:00 01/10/22 13:53 Labs: Urine 01/04/22 01/04/22 01/11/22 Range/Units 06:42 06:42 15:20 Urine Color STRAW YELLOW Urine Appearance CLEAR CLEAR Urine pH 5.5 5.5 (5.0-8.0) Ur Specific [place] 1.015 1.010 (1.005-1.025) Urine Protein NEG NEG (NEG-TRACE) MG/DL Urine Glucose (UA) NEG NEG (NEG) MG/DL Urine Test NEGATIVE (NEGATIVE) All other labs normal. Imaging Abdomen CT scan report/results: report reviewed and image reviewed CT scan - pelvis: report reviewed and image reviewed Assessment and Plan (1) Abdominal pain: Status: Acute She has had diarrhea and crampy abdominal pain for several days. Her abdominal exam is very benign. She appears comfortable and urrently she denies any abdominal pain. Her overall clinical picture is actually achieve more of a gastroenteritis. I will review her CAT scan with the radiologist today. She otherwise has a very benign exam. I will follow along with serial abdominal exams. She may have diet as tolerated at this time. Procedures Date of Service Date of Service: 01/15/22
[2022-01-15 08:00] VITALS: BP 97/53; PULSE 97; RESP 18; TEMP 36.3; O2SAT 96
[2022-01-15] MEDS: Nicotine 21 MG PATCH.TD24 TRANSDERMA (09:21)
[2022-01-15] MEDS: Gabapentin 600 MG TABLET PO ×3 (09:22→20:34)
[2022-01-15] MEDS: OXcarbazepine 300 MG TABLET PO (09:22)
[2022-01-15] MEDS: Thiamine HCL 100 MG TABLET PO (09:23)
[2022-01-15] MEDS: Folic Acid 1 MG TABLET PO (09:23)
[2022-01-15] MEDS: Simethicone 80 MG TAB.CHEW PO (09:23)
[2022-01-15] MEDS: guaiFENesin LA 600 MG TAB.ER.12H PO (09:23)
[2022-01-15] MEDS: Multivitamin TABLET 1 TAB PO (09:24)
[2022-01-15] MEDS: Famotidine 20 MG TABLET PO ×2 (09:24→20:34)
[2022-01-15] MEDS: Buprenorphine/Naloxone 8/2 mg FILM 1 FILM SUBLINGUAL ×3 (09:26→20:33)
[2022-01-15] MEDS: cloNIDine HCL 0.1 MG TABLET PO ×3 (11:30→20:34)
[2022-01-15 11:32] VITALS: BP 121/61; PULSE 111; RESP 18; O2SAT 98
--- NOTE | 2022-01-15 12:55 | PC.NURSE ---
Patient reporting episode of incontinence of stool, continues to report abd discomfort, denies N/V. Provider Vicki Delgadillo notified of continued symptoms - may give Imodium PRN as ordered. Given to patient as ordered.
--- NOTE | 2022-01-15 14:12 | HO.PSYCHPN ---
Subjective Subjective Date of Service: 01/15/22 Reason For Visit: SI Subjective Notes: Conditional Voluntary Interim History: Pt presents as dysphoric, restless, she endorses feeling depressed, hopeless/helpless. She reports feeling overwhelmed with stressors- we discussed how her mood affecting her ability to be more hopeful about her future. Pt reports she has not felt as depressed as she has been feeling lately. She reports feeling hopeless about her life and wondering if it's even worth it. She reports passive SI, no plan or intent to hurt self in unit. She continued to have loose/watery stools- seen by surgeon Dr. Garcia who does not think clinically pt has partial obstruction based on physical exam- Dr. Garcia will see pt today again and follow up on symptoms. we discussed possibility of trileptal lowering suboxone levels. Medication Compliance: Yes Side effects from medications: No Review of Systems Review of Systems Constitutional : No Weight loss, No Fever, No Chills, No Night Sweats, No Fatigue, No Malaise ENT/Mouth : No Hearing loss, No Ear Pain, No Nasal Congestion, No Sinus Pain, No Hoarseness, No sore throat, No Rhinorrhea, No Swallowing Difficulty Eyes: No Eye Pain, No Swelling, No Redness, No Foreign Body, No Discharge, No Vision Changes Cardiovascular : No Chest Pain, No SOB, No Dyspnea on Exertion, No Orthopnea, No Edema, No Palpitations Respiratory : No Cough, No Sputum, No Wheezing, No Smoke Exposure, No Dyspnea Gastrointestinal : No Nausea, No Vomiting, No Diarrhea, No Constipation, No abdominal Pain, No Hematochezia, No Melena Genitourinary : no irregular bleeding, No Dysuria, No Urinary Frequency, No Hematuria, No Urinary Incontinence, No Urgency, No Flank Pain, No Urinary Flow Changes, No Hesitancy Musculoskeletal : No joint pain, No Myalgias, No Joint Swelling Skin : No Skin Lesions, No rash Neuro : No Weakness, No Numbness, No Paresthesias, No Loss of Consciousness, No Dizziness, No Headache Psych : Complaining of feeling anxious, depressed, vague suicidal ideation, no homicidal ideation, denies hallucinations Heme/Lymph: No Bruising, No Bleeding,No Lymphadenopathy Endocrine : No Polyuria, No Polydipsia, No Temperature Intolerance Yes all other systems are reviewed and are negative Constitutional: Denies chills, Reports fatigue, Denies fever(s), Reports lethargy, Reports night sweats, Denies stops breathing during sleep and Denies weakness Eyes: Reports no additional eye complaints Denies dizziness Cardiovascular: Denies chest pain, Denies chest pain at rest, Denies epigastric discomfort, Denies diaphoresis, Denies rapid heart rate, Denies leg edema, Denies lightheadedness and Denies dyspnea Respiratory: Denies no additional respiratory complaints, Denies cough and Denies dyspnea Gastrointestinal: Reports bloating, Reports constipation, Reports GI cramping, Reports excessive flatus, Reports diarrhea, Reports nausea and Reports vomiting Musculoskeletal: Denies no additional musculoskeletal complaints and Denies muscle weakness Denies system reviewed and no additional complaints, except as documented, Denies dizziness, Denies memory loss and Denies weakness Psychiatric: Reports depression, Reports difficulty concentrating, Reports hopelessness and Denies memory loss Endocrine: Reports fatigue Mental Status Exam Mental Status Exam Narrative: Appearance: casually groomed, fair hygiene, in NAD Behavior: cooperative Psychomotor: restless with some irritability and Speech: clear, with pressured speech TP: perseverative TC: no signs of psychosis, wanting to continue treatment, depressed Mood: changes Affect: mildly irritable HI: none SI: passive SI VH/AH: none Delusions: none Insight/judgment: fair. Memory/cog: alert, oriented x 3. grossly intact to conversational testing. Diagnostics Vital Signs (24Hr): Vital Signs - 24 hr 01/14/22 15:27 01/14/22 20:53 01/15/22 08:00 Temperature 97.9 F 97.3 F Pulse Rate 105 H 86 97 Respiratory Rate 18 18 Blood Pressure 121/60 105/55 L 97/53 L Pulse Oximetry 98 98 96 01/15/22 11:32 Temperature Pulse Rate 111 H Respiratory Rate 18 Blood Pressure 121/61 Pulse Oximetry 98 BMI result Body Mass Index 26.0 Labs Results: 01/12/22 07:00 01/10/22 13:53 Imaging Radiology Impressions: ITS Impressions Abdomen/Pelvis CT 01/14/22 19:21 IMPRESSION: Partial small bowel obstruction. The transition in the left lower abdomen. Left nephrolithiasis Fleischner guidelines were followed. Medications Medications Current Medications Acetaminophen (Acetaminophen 325 Mg Tablet) 650 mg PO Q6H PRN PRN Reason: Headache/Pain Mild Scale (1-3) Last Admin: 01/12/22 16:33 Dose: 650 mg Documented by: Al Hydroxide/Mg Hydroxide (Magnesium Hydrox/Alum Hydrox 30 Ml Oral.Susp) 30 ml PO Q6H PRN PRN Reason: Heartburn/Nausea Benzocaine (Throat Lozenge, Medicated Lozenge) 1 lozenge MUCOUS MEM Q2H PRN PRN Reason: Sore Throat Last Admin: 01/11/22 12:29 Dose: 1 lozenge Documented by: Buprenorphine/Naloxone (Buprenorphine/Naloxone 8/2 Mg Film) 1 film SUBLINGUAL TID [facility] Last Admin: 01/15/22 09:26 Dose: 1 film Documented by: Calcium Carbonate (Calcium Carbonate 750 Mg Tab.Chew) 750 mg PO Q4H PRN PRN Reason: acid reflux Last Admin: 01/07/22 22:46 Dose: 750 mg Documented by: Clonidine HCl (Clonidine Hcl 0.1 Mg Tablet) 0.1 mg PO TID [facility]; Protocol Last Admin: 01/15/22 11:30 Dose: 0.1 mg Documented by: Famotidine (Famotidine 20 Mg Tablet) 20 mg PO BID [facility] Last Admin: 01/15/22 09:24 Dose: 20 mg Documented by: Folic Acid (Folic Acid 1 Mg Tablet) 1 mg PO DAILY [facility] Last Admin: 01/15/22 09:23 Dose: 1 mg Documented by: Gabapentin (Gabapentin 600 Mg Tablet) 600 mg PO TID [facility] Last Admin: 01/15/22 09:22 Dose: 600 mg Documented by: Hydroxyzine HCl (Hydroxyzine Hcl 25 Mg Tablet) 25 mg PO Q6H PRN PRN Reason: Anxiety/sleep Last Admin: 01/15/22 00:52 Dose: 25 mg Documented by: Ibuprofen (Ibuprofen 800 Mg Tablet) 800 mg PO Q8H PRN PRN Reason: mod pain Last Admin: 01/15/22 00:53 Dose: 800 mg Documented by: Lamotrigine (Lamotrigine 25 Mg Tablet) 50 mg PO BEDTIME [facility] Last Admin: 01/14/22 20:35 Dose: 50 mg Documented by: Magnesium Hydroxide (Milk Of Magnesia 30 Ml Oral.Susp) 30 ml PO DAILY PRN PRN Reason: Constipation Last Admin: 01/09/22 20:14 Dose: 30 ml Documented by: Multi-Ingred Cream/Lotion/Oil/Oint (Mineral Oil/Petrolatum,White 106 Gm Tube) 1 appl TOPICAL TID PRN PRN Reason: dry skin Last Admin: 01/12/22 21:23 Dose: 1 appl Documented by: Multivitamins/Vitamin C (Multivitamin Tablet) 1 tab PO DAILY [facility] Last Admin: 01/15/22 09:24 Dose: 1 tab Documented by: Nicotine (Nicotine 21 Mg Patch.Td24) 21 mg TRANSDERMA DAILY [facility] Last Admin: 01/15/22 09:21 Dose: 21 mg Documented by: Nicotine Polacrilex (Nicotine Polacrilex 2 Mg Gum) 4 mg BUCCAL Q2H PRN PRN Reason: Nicotine Cravings Last Admin: 01/14/22 19:37 Dose: 4 mg Documented by: Ondansetron HCl (Ondansetron Odt 4 Mg Tab.Rapdis) 4 mg TRANSLINGU Q6H PRN PRN Reason: Nausea and Vomiting Quetiapine Fumarate (Quetiapine Fumarate 100 Mg Tablet) 100 mg PO DAILY@0800,1500 [facility] Last Admin: 01/15/22 09:44 Dose: 100 mg Documented by: Quetiapine Fumarate (Quetiapine Fumarate 100 Mg Tablet) 100 mg PO Q6H PRN PRN Reason: Anxiety Last Admin: 01/15/22 12:45 Dose: 100 mg Documented by: Quetiapine Fumarate (Quetiapine Fumarate 200 Mg Tablet) 200 mg PO BEDTIME [facility] Last Admin: 01/14/22 20:34 Dose: 200 mg Documented by: Thiamine HCl (Thiamine Hcl 100 Mg Tablet) 100 mg PO DAILY [facility] Last Admin: 01/15/22 09:23 Dose: 100 mg Documented by: Trazodone HCl (Trazodone Hcl 100 Mg Tablet) 200 mg PO BEDTIME [facility] Last Admin: 01/14/22 21:17 Dose: 200 mg Documented by: Allergies Allergies Allergy/AdvReac Type Severity Reaction Status Date / Time No Known Allergies Allergy Verified 12/06/21 09:33 Assessment & Plan Assessment & Plan (1) Bipolar 2 disorder: Status: Acute Code(s): F31.81 - Bipolar II disorder (2) Abdominal pain: Status: Acute Code(s): R10.9 - Unspecified abdominal pain Assessment and Plan: She has had diarrhea and crampy abdominal pain for several days. Her abdominal exam is very benign. She appears comfortable and urrently she denies any abdominal pain. Her overall clinical picture is actually achieve more of a gastroenteritis. I will review her CAT scan with the radiologist today. She otherwise has a very benign exam. I will follow along with serial abdominal exams. She may have diet as tolerated at this time. (3) Alcohol use disorder, severe, dependence: Status: Acute Code(s): F10.20 - Alcohol dependence, uncomplicated (4) Cocaine use disorder: Status: Acute Code(s): F14.10 - Cocaine abuse, uncomplicated (5) Opioid use disorder: Status: Acute Code(s): F11.90 - Opioid use, unspecified, uncomplicated Plan 1. d/c trileptal possible decreasing levels of suboxone and exacerbating GI symptoms. 2. continue seroquel 3. add ativan prn- pt understands as medications are being adjusted for depression, SI but rx will not be given on discharge. 4. aftercare planning. I spent _25 minutes with the patient and/or on the patient floor today, greater than?50% of which was spent counseling/coordinating care. Patient educated on: diagnosis, medication risk/benefits and substance abuse Informed Consent: understands Reason for contiued inpatient stay Substantial Risk for: harm to self
--- NOTE | 2022-01-15 15:05 | PM.EVENT ---
Event Note Date of Service: 01/15/22 Event Note: Patient says she is comfortable Denies abdominal pain Tolerating diet No vomiting Abdomen soft and benign She describes area especially at night after dinner Overall clinical picture suggests more enteritis than Will continue to follow C diff was negative
[2022-01-15] MEDS: LORazepam 1 MG TABLET PO (15:19)
[2022-01-15 15:35] VITALS: BP 127/58; PULSE 101; RESP 18; O2SAT 98
[2022-01-15 18:10] VITALS: BP 96/57; PULSE 81; RESP 18; TEMP 36.3; O2SAT 100
[2022-01-15 20:00] VITALS: BP 118/64; PULSE 61; RESP 16; TEMP 36.8; O2SAT 98
[2022-01-15] MEDS: lamoTRIgine 25 MG TABLET 50 MG PO (20:34)
[2022-01-15] MEDS: traZODone HCL 100 MG TABLET 200 MG PO (20:34)
[2022-01-15] MEDS: QUEtiapine Fumarate 200 MG TABLET PO (20:34)
[2022-01-15] MEDS: Ondansetron ODT 4 MG TAB.RAPDIS TRANSLINGU (20:34)
[2022-01-16 09:37] VITALS: BP 104/65; PULSE 95; RESP 16; TEMP 37.1; O2SAT 99
[2022-01-16] MEDS: Buprenorphine/Naloxone 8/2 mg FILM 1 FILM SUBLINGUAL ×3 (09:40→22:34)
[2022-01-16] MEDS: Famotidine 20 MG TABLET PO ×2 (09:40→22:34)
[2022-01-16] MEDS: Thiamine HCL 100 MG TABLET PO (09:41)
[2022-01-16] MEDS: Multivitamin TABLET 1 TAB PO (09:41)
[2022-01-16] MEDS: cloNIDine HCL 0.1 MG TABLET PO ×3 (09:41→22:35)
[2022-01-16] MEDS: Folic Acid 1 MG TABLET PO (09:41)
[2022-01-16] MEDS: Gabapentin 600 MG TABLET PO ×3 (09:41→22:35)
[2022-01-16] MEDS: LORazepam 1 MG TABLET PO ×3 (09:41→22:34)
[2022-01-16] MEDS: QUEtiapine Fumarate 100 MG TABLET PO ×3 (09:42→16:03)
[2022-01-16] MEDS: Nicotine 21 MG PATCH.TD24 TRANSDERMA (09:45)
--- NOTE | 2022-01-16 10:05 | HO.PSYCHPN ---
Subjective Subjective Date of Service: 01/16/22 Reason For Visit: SI Subjective Notes: Conditional Voluntary Interim History: Pt has been more visible in the unit. She reports feeling anxious and overwhelmed with current stressors mainly lack of stable housing, worried about going back to unsafe environment and relapsing. She expresses being tired of living life using substances but also feels hopeless about her ability to stop using drugs. She continues to report episodes of loose stools, incontinence, but reports less than day prior. She also reports less abdominal pain. She continues to endorse passive SI. She has been calling different [employer] programs and working closely with assistant wrestling coach. Pt observed with low frustration tolerance at times, labile, does have insight into how she at times when frustrated or upset has no control over reactions. Medication Compliance: Yes Side effects from medications: No Attending Groups: Yes Review of Systems Review of Systems Constitutional : No Weight loss, No Fever, No Chills, No Night Sweats, No Fatigue, No Malaise ENT/Mouth : No Hearing loss, No Ear Pain, No Nasal Congestion, No Sinus Pain, No Hoarseness, No sore throat, No Rhinorrhea, No Swallowing Difficulty Eyes: No Eye Pain, No Swelling, No Redness, No Foreign Body, No Discharge, No Vision Changes Cardiovascular : No Chest Pain, No SOB, No Dyspnea on Exertion, No Orthopnea, No Edema, No Palpitations Respiratory : No Cough, No Sputum, No Wheezing, No Smoke Exposure, No Dyspnea Gastrointestinal : No Nausea, No Vomiting, No Diarrhea, No Constipation, No abdominal Pain, No Hematochezia, No Melena Genitourinary : no irregular bleeding, No Dysuria, No Urinary Frequency, No Hematuria, No Urinary Incontinence, No Urgency, No Flank Pain, No Urinary Flow Changes, No Hesitancy Musculoskeletal : No joint pain, No Myalgias, No Joint Swelling Skin : No Skin Lesions, No rash Neuro : No Weakness, No Numbness, No Paresthesias, No Loss of Consciousness, No Dizziness, No Headache Psych : Complaining of feeling anxious, depressed, vague suicidal ideation, no homicidal ideation, denies hallucinations Heme/Lymph: No Bruising, No Bleeding,No Lymphadenopathy Endocrine : No Polyuria, No Polydipsia, No Temperature Intolerance Yes all other systems are reviewed and are negative Constitutional: Denies chills, Reports fatigue, Denies fever(s), Reports lethargy, Reports night sweats, Denies stops breathing during sleep and Denies weakness Eyes: Reports no additional eye complaints Denies dizziness Cardiovascular: Denies chest pain, Denies chest pain at rest, Denies epigastric discomfort, Denies diaphoresis, Denies rapid heart rate, Denies leg edema, Denies lightheadedness and Denies dyspnea Respiratory: Denies no additional respiratory complaints, Denies cough and Denies dyspnea Gastrointestinal: Reports bloating, Reports constipation, Reports GI cramping, Reports excessive flatus, Reports diarrhea, Reports nausea and Reports vomiting Musculoskeletal: Denies no additional musculoskeletal complaints and Denies muscle weakness Denies system reviewed and no additional complaints, except as documented, Denies dizziness, Denies memory loss and Denies weakness Psychiatric: Reports depression, Reports difficulty concentrating, Reports hopelessness and Denies memory loss Endocrine: Reports fatigue Mental Status Exam Mental Status Exam Narrative: Appearance: casually groomed, fair hygiene, in NAD Behavior: cooperative Psychomotor: restless with some irritability and Speech: clear, with pressured speech TP: perseverative TC: no signs of psychosis, wanting to continue treatment, depressed Mood: overwhelmed Affect: dysphoric HI: none SI: passive SI VH/AH: none Delusions: none Insight/judgment: fair. Memory/cog: alert, oriented x 3. grossly intact to conversational testing. Diagnostics Vital Signs (24Hr): Vital Signs - 24 hr 01/16/22 22:47 01/17/22 08:37 Temperature 97.7 F 97.6 F Pulse Rate 99 90 Respiratory Rate 18 17 Blood Pressure 127/70 106/66 Pulse Oximetry 97 97 BMI result Body Mass Index 26.0 Labs Results: 01/12/22 07:00 01/10/22 13:53 Imaging Radiology Impressions: ITS Impressions Abdomen/Pelvis CT 01/14/22 19:21 IMPRESSION: Partial small bowel obstruction. The transition in the left lower abdomen. Left nephrolithiasis Fleischner guidelines were followed. Medications Medications Current Medications Acetaminophen (Acetaminophen 325 Mg Tablet) 650 mg PO Q6H PRN PRN Reason: Headache/Pain Mild Scale (1-3) Last Admin: 01/12/22 16:33 Dose: 650 mg Documented by: Al Hydroxide/Mg Hydroxide (Magnesium Hydrox/Alum Hydrox 30 Ml Oral.Susp) 30 ml PO Q6H PRN PRN Reason: Heartburn/Nausea Benzocaine (Throat Lozenge, Medicated Lozenge) 1 lozenge MUCOUS MEM Q2H PRN PRN Reason: Sore Throat Last Admin: 01/11/22 12:29 Dose: 1 lozenge Documented by: Buprenorphine/Naloxone (Buprenorphine/Naloxone 8/2 Mg Film) 1 film SUBLINGUAL TID [facility] Last Admin: 01/17/22 08:33 Dose: 1 film Documented by: Calcium Carbonate (Calcium Carbonate 750 Mg Tab.Chew) 750 mg PO Q4H PRN PRN Reason: acid reflux Last Admin: 01/07/22 22:46 Dose: 750 mg Documented by: Clonidine HCl (Clonidine Hcl 0.1 Mg Tablet) 0.1 mg PO TID [facility]; Protocol Last Admin: 01/17/22 08:32 Dose: 0.1 mg Documented by: Famotidine (Famotidine 20 Mg Tablet) 20 mg PO BID [facility] Last Admin: 01/17/22 08:32 Dose: 20 mg Documented by: Folic Acid (Folic Acid 1 Mg Tablet) 1 mg PO DAILY [facility] Last Admin: 01/17/22 08:32 Dose: 1 mg Documented by: Gabapentin (Gabapentin 600 Mg Tablet) 600 mg PO TID [facility] Last Admin: 01/17/22 08:32 Dose: 600 mg Documented by: Hydrocortisone (Hydrocortisone 1 % Ointment 28.35 Gm Tube) 1 appl TOPICAL BID PRN; Protocol PRN Reason: hand/forearm rash Last Admin: 01/16/22 15:59 Dose: 1 appl Documented by: Hydroxyzine HCl (Hydroxyzine Hcl 25 Mg Tablet) 25 mg PO Q6H PRN PRN Reason: Anxiety/sleep Last Admin: 01/15/22 20:33 Dose: 25 mg Documented by: Ibuprofen (Ibuprofen 800 Mg Tablet) 800 mg PO Q8H PRN PRN Reason: mod pain Last Admin: 01/15/22 00:53 Dose: 800 mg Documented by: Lorazepam (Lorazepam 1 Mg Tablet) 1 mg PO Q6H PRN PRN Reason: Anxiety Last Admin: 01/17/22 08:32 Dose: 1 mg Documented by: Magnesium Hydroxide (Milk Of Magnesia 30 Ml Oral.Susp) 30 ml PO DAILY PRN PRN Reason: Constipation Last Admin: 01/09/22 20:14 Dose: 30 ml Documented by: Multi-Ingred Cream/Lotion/Oil/Oint (Mineral Oil/Petrolatum,White 106 Gm Tube) 1 appl TOPICAL TID PRN PRN Reason: dry skin Last Admin: 01/12/22 21:23 Dose: 1 appl Documented by: Multivitamins/Vitamin C (Multivitamin Tablet) 1 tab PO DAILY [facility] Last Admin: 01/17/22 08:32 Dose: 1 tab Documented by: Nicotine (Nicotine 21 Mg Patch.Td24) 21 mg TRANSDERMA DAILY [facility] Last Admin: 01/17/22 08:33 Dose: 21 mg Documented by: Nicotine Polacrilex (Nicotine Polacrilex 2 Mg Gum) 4 mg BUCCAL Q2H PRN PRN Reason: Nicotine Cravings Last Admin: 01/14/22 19:37 Dose: 4 mg Documented by: Ondansetron HCl (Ondansetron Odt 4 Mg Tab.Rapdis) 4 mg TRANSLINGU Q6H PRN PRN Reason: Nausea and Vomiting Last Admin: 01/15/22 20:34 Dose: 4 mg Documented by: Quetiapine Fumarate (Quetiapine Fumarate 100 Mg Tablet) 100 mg PO DAILY@0800,1500 [facility] Last Admin: 01/17/22 08:32 Dose: 100 mg Documented by: Quetiapine Fumarate (Quetiapine Fumarate 100 Mg Tablet) 100 mg PO Q6H PRN PRN Reason: Anxiety Last Admin: 01/16/22 13:16 Dose: 100 mg Documented by: Quetiapine Fumarate (Quetiapine Fumarate 200 Mg Tablet) 200 mg PO BEDTIME [facility] [place] Last Admin: 01/16/22 22:35 Dose: 200 mg Documented by: Simethicone (Simethicone 80 Mg Tab.Chew) 80 mg PO TID PRN PRN Reason: bloating Thiamine HCl (Thiamine Hcl 100 Mg Tablet) 100 mg PO DAILY [facility] Last Admin: 01/17/22 08:32 Dose: 100 mg Documented by: Trazodone HCl (Trazodone Hcl 100 Mg Tablet) 200 mg PO BEDTIME [facility] Last Admin: 01/16/22 22:35 Dose: 200 mg Documented by: Allergies Allergies Allergy/AdvReac Type Severity Reaction Status Date / Time No Known Allergies Allergy Verified 12/06/21 09:33 Assessment & Plan Assessment & Plan (1) Alcohol use disorder, severe, dependence: Status: Acute Code(s): F10.20 - Alcohol dependence, uncomplicated (2) Cocaine use disorder: Status: Acute Code(s): F14.10 - Cocaine abuse, uncomplicated (3) Bipolar 2 disorder: Status: Acute Code(s): F31.81 - Bipolar II disorder Plan 1. trileptal was d/c as it could lower suboxone levels appear to have some withdrawal s/s 2. lamictal d/c due to new peripheral rash and lack of efficacy (although dose relatively low but due to long titration process will try different mood stabilizer) 3. consider lithium will hold due to active GI symptoms. 4. continue seroquel I spent __25____ minutes with the patient and/or on the patient floor today, greater than?50% of which was spent counseling/coordinating care. Reason for contiued inpatient stay Substantial Risk for: harm to self
--- NOTE | 2022-01-16 15:10 | P.PNGS_ITS ---
Subjective Subjective Date of Service: 01/16/22 Interval history: Main complaint is diarrhea Says she has very water stools States sometimes is difficult to control Crampy abdominal pain with diarrhea No nausea/vomiting Physical Exam Vital Signs: Vital Signs: Last Vital Signs Temp 98.7 F 01/16/22 09:37 Pulse 95 01/16/22 09:37 Resp 16 01/16/22 09:37 BP 104/65 01/16/22 09:37 Pulse Ox 99 01/16/22 09:37 BMI result Body Mass Index 26.0 Const: General: comfortable and no acute distress Resp: Effort & Inspection: normal respiratory effort GI: Palpation (GI): Soft to palpation, not firm, nontender and no guarding Objective Data Active Medications Acetaminophen (Acetaminophen 325 Mg Tablet) 650 mg PO Q6H PRN PRN Reason: Headache/Pain Mild Scale (1-3) Last Admin: 01/12/22 16:33 Dose: 650 mg Documented by: ALAN Al Hydroxide/Mg Hydroxide (Magnesium Hydrox/Alum Hydrox 30 Ml Oral.Susp) 30 ml PO Q6H PRN PRN Reason: Heartburn/Nausea Benzocaine (Throat Lozenge, Medicated Lozenge) 1 lozenge MUCOUS MEM Q2H PRN PRN Reason: Sore Throat Last Admin: 01/11/22 12:29 Dose: 1 lozenge Documented by: PERLITA Buprenorphine/Naloxone (Buprenorphine/Naloxone 8/2 Mg Film) 1 film SUBLINGUAL TID [facility] Last Admin: 01/16/22 09:40 Dose: 1 film Documented by: ALAN Calcium Carbonate (Calcium Carbonate 750 Mg Tab.Chew) 750 mg PO Q4H PRN PRN Reason: acid reflux Last Admin: 01/07/22 22:46 Dose: 750 mg Documented by: SHAHEEN Clonidine HCl (Clonidine Hcl 0.1 Mg Tablet) 0.1 mg PO TID [facility]; Protocol Last Admin: 01/16/22 09:41 Dose: 0.1 mg Documented by: ALAN Famotidine (Famotidine 20 Mg Tablet) 20 mg PO BID [facility] Last Admin: 01/16/22 09:40 Dose: 20 mg Documented by: ALAN Folic Acid (Folic Acid 1 Mg Tablet) 1 mg PO DAILY [facility] Last Admin: 02/16/22 09:41 Dose: 1 mg Documented by: ALAN Gabapentin (Gabapentin 600 Mg Tablet) 600 mg PO TID [facility] Last Admin: 01/16/22 09:41 Dose: 600 mg Documented by: ALAN Hydrocortisone (Hydrocortisone 1 % Ointment 28.35 Gm Tube) 1 appl TOPICAL BID PRN; Protocol PRN Reason: hand/forearm rash Hydroxyzine HCl (Hydroxyzine Hcl 25 Mg Tablet) 25 mg PO Q6H PRN PRN Reason: Anxiety/sleep Last Admin: 01/15/22 20:33 Dose: 25 mg Documented by: ISRAEL Ibuprofen (Ibuprofen 800 Mg Tablet) 800 mg PO Q8H PRN PRN Reason: mod pain Last Admin: 01/15/22 00:53 Dose: 800 mg Documented by: MYLES Lorazepam (Lorazepam 1 Mg Tablet) 1 mg PO Q6H PRN PRN Reason: Anxiety Last Admin: 01/16/22 09:41 Dose: 1 mg Documented by: ALAN Magnesium Hydroxide (Milk Of Magnesia 30 Ml Oral.Susp) 30 ml PO DAILY PRN PRN Reason: Constipation Last Admin: 01/09/22 20:14 Dose: 30 ml Documented by: ZHOU Multi-Ingred Cream/Lotion/Oil/Oint (Mineral Oil/Petrolatum,White 106 Gm Tube) 1 appl TOPICAL TID PRN PRN Reason: dry skin Last Admin: 01/12/22 21:23 Dose: 1 appl Documented by: GEOMINTravon Multivitamins/Vitamin C (Multivitamin Tablet) 1 tab PO DAILY [facility] Last Admin: 01/16/22 09:41 Dose: 1 tab Documented by: ALAN Nicotine (Nicotine 21 Mg Patch.Td24) 21 mg TRANSDERMA DAILY [facility] Last Admin: 01/16/22 09:45 Dose: 21 mg Documented by: ALAN Nicotine Polacrilex (Nicotine Polacrilex 2 Mg Gum) 4 mg BUCCAL Q2H PRN PRN Reason: Nicotine Cravings Last Admin: 01/14/22 19:37 Dose: 4 mg Documented by: ALFRED Ondansetron HCl (Ondansetron Odt 4 Mg Tab.Rapdis) 4 mg TRANSLINGU Q6H PRN PRN Reason: Nausea and Vomiting Last Admin: 01/15/22 20:34 Dose: 4 mg Documented by: ISRAEL Quetiapine Fumarate (Quetiapine Fumarate 100 Mg Tablet) 100 mg PO DAILY@0800,1500 [facility] Last Admin: 01/16/22 09:42 Dose: 100 mg Documented by: ALAN Quetiapine Fumarate (Quetiapine Fumarate 100 Mg Tablet) 100 mg PO Q6H PRN PRN Reason: Anxiety Last Admin: 01/16/22 13:16 Dose: 100 mg Documented by: ALAN Quetiapine Fumarate (Quetiapine Fumarate 200 Mg Tablet) 200 mg PO BEDTIME [facility] Last Admin: 01/15/22 20:34 Dose: 200 mg Documented by: ISRAEL Simethicone (Simethicone 80 Mg Tab.Chew) 80 mg PO TID PRN PRN Reason: bloating Thiamine HCl (Thiamine Hcl 100 Mg Tablet) 100 mg PO DAILY [facility] Last Admin: 01/16/22 09:41 Dose: 100 mg Documented by: ALAN Trazodone HCl (Trazodone Hcl 100 Mg Tablet) 200 mg PO BEDTIME [facility] Last Admin: 01/15/22 20:34 Dose: 200 mg Documented by: ISRAEL Labs CBC & Chem 7: 01/12/22 07:00 01/10/22 13:53 Procedures Date of Service Date of Service: 01/16/22 Progress Note: A&P Assessment and plan (1) Diarrhea: Status: Acute Assessment and Plan: Clinically not obstructed Abdomen soft and benign Pain complaint is severe diarrhea C diff negative Consult GI Fall Risk Details Current Medications: Current Medications Acetaminophen (Acetaminophen 325 Mg Tablet) 650 mg PO Q6H PRN PRN Reason: Headache/Pain Mild Scale (1-3) Last Admin: 01/12/22 16:33 Dose: 650 mg Documented by: Al Hydroxide/Mg Hydroxide (Magnesium Hydrox/Alum Hydrox 30 Ml Oral.Susp) 30 ml PO Q6H PRN PRN Reason: Heartburn/Nausea Benzocaine (Throat Lozenge, Medicated Lozenge) 1 lozenge MUCOUS MEM Q2H PRN PRN Reason: Sore Throat Last Admin: 01/11/22 12:29 Dose: 1 lozenge Documented by: Buprenorphine/Naloxone (Buprenorphine/Naloxone 8/2 Mg Film) 1 film SUBLINGUAL TID [facility] Last Admin: 01/16/22 09:40 Dose: 1 film Documented by: Calcium Carbonate (Calcium Carbonate 750 Mg Tab.Chew) 750 mg PO Q4H PRN PRN Reason: acid reflux Last Admin: 01/07/22 22:46 Dose: 750 mg Documented by: Clonidine HCl (Clonidine Hcl 0.1 Mg Tablet) 0.1 mg PO TID [facility]; Protocol Last Admin: 01/16/22 09:41 Dose: 0.1 mg Documented by: Famotidine (Famotidine 20 Mg Tablet) 20 mg PO BID [facility] Last Admin: 01/16/22 09:40 Dose: 20 mg Documented by: Folic Acid (Folic Acid 1 Mg Tablet) 1 mg PO DAILY [facility] Last Admin: 01/16/22 09:41 Dose: 1 mg Documented by: Gabapentin (Gabapentin 600 Mg Tablet) 600 mg PO TID [facility] Last Admin: 01/16/22 09:41 Dose: 600 mg Documented by: Hydrocortisone (Hydrocortisone 1 % Ointment 28.35 Gm Tube) 1 appl TOPICAL BID PRN; Protocol PRN Reason: hand/forearm rash Hydroxyzine HCl (Hydroxyzine Hcl 25 Mg Tablet) 25 mg PO Q6H PRN PRN Reason: Anxiety/sleep Last Admin: 01/15/22 20:33 Dose: 25 mg Documented by: Ibuprofen (Ibuprofen 800 Mg Tablet) 800 mg PO Q8H PRN PRN Reason: mod pain Last Admin: 01/15/22 00:53 Dose: 800 mg Documented by: Lorazepam (Lorazepam 1 Mg Tablet) 1 mg PO Q6H PRN PRN Reason: Anxiety Last Admin: 01/16/22 09:41 Dose: 1 mg Documented by: Magnesium Hydroxide (Milk Of Magnesia 30 Ml Oral.Susp) 30 ml PO DAILY PRN PRN Reason: Constipation Last Admin: 01/09/22 20:14 Dose: 30 ml Documented by: Multi-Ingred Cream/Lotion/Oil/Oint (Mineral Oil/Petrolatum,White 106 Gm Tube) 1 appl TOPICAL TID PRN PRN Reason: dry skin Last Admin: 01/12/22 21:23 Dose: 1 appl Documented by: Multivitamins/Vitamin C (Multivitamin Tablet) 1 tab PO DAILY [facility] Last Admin: 01/16/22 09:41 Dose: 1 tab Documented by: Nicotine (Nicotine 21 Mg Patch.Td24) 21 mg TRANSDERMA DAILY [facility] Last Admin: 01/16/22 09:45 Dose: 21 mg Documented by: Nicotine Polacrilex (Nicotine Polacrilex 2 Mg Gum) 4 mg BUCCAL Q2H PRN PRN Reason: Nicotine Cravings Last Admin: 01/14/22 19:37 Dose: 4 mg Documented by: Ondansetron HCl (Ondansetron Odt 4 Mg Tab.Rapdis) 4 mg TRANSLINGU Q6H PRN PRN Reason: Nausea and Vomiting Last Admin: 01/15/22 20:34 Dose: 4 mg Documented by: Quetiapine Fumarate (Quetiapine Fumarate 100 Mg Tablet) 100 mg PO DAILY@0800,1500 [facility] Last Admin: 01/16/22 09:42 Dose: 100 mg Documented by: Quetiapine Fumarate (Quetiapine Fumarate 100 Mg Tablet) 100 mg PO Q6H PRN PRN Reason: Anxiety Last Admin: 01/16/22 13:16 Dose: 100 mg Documented by: Quetiapine Fumarate (Quetiapine Fumarate 200 Mg Tablet) 200 mg PO BEDTIME [facility] Last Admin: 01/15/22 20:34 Dose: 200 mg Documented by: Simethicone (Simethicone 80 Mg Tab.Chew) 80 mg PO TID PRN PRN Reason: bloating Thiamine HCl (Thiamine Hcl 100 Mg Tablet) 100 mg PO DAILY [facility] Last Admin: 01/16/22 09:41 Dose: 100 mg Documented by: Trazodone HCl (Trazodone Hcl 100 Mg Tablet) 200 mg PO BEDTIME [facility] Last Admin: 01/15/22 20:34 Dose: 200 mg Documented by: Time Spent With Patient Time: Total time spent is greater than 50% in coordination of care (as documented) at patient's floor/unit and/or counseling patient: Time with patient: 15 - 24 minutes Quality Stroke Does the patient have a stroke diagnosis?: No VTE Prior VTE?: No VTE Risk Level:: Medical - low VTE Device Contraindication: Treatment Not Indicated VTE Drug Contraindication: Treatment Not Indicated
[2022-01-16] MEDS: Hydrocortisone 1 % Ointment 28.35 GM TUBE 1 APPL TOPICAL (15:59)
[2022-01-16] MEDS: traZODone HCL 100 MG TABLET 200 MG PO (22:35)
[2022-01-16] MEDS: QUEtiapine Fumarate 200 MG TABLET PO (22:35)
[2022-01-16 22:47] VITALS: BP 127/70; PULSE 99; RESP 18; TEMP 36.5; O2SAT 97
--- NOTE | 2022-01-17 08:13 | PM.PNGS ---
Subjective Subjective Date of Service: 01/17/22 Interval history: Says she continues to have diarrhea especially at night Occasional crampy pain Tolerating diet No vomiting Physical Exam Vital Signs: Vital Signs: Last Vital Signs Temp 97.7 F 01/16/22 22:47 Pulse 99 01/16/22 22:47 Resp 18 01/16/22 22:47 BP 127/70 01/16/22 22:47 Pulse Ox 97 01/16/22 22:47 BMI result Body Mass Index 26.0 Const: General: comfortable and no acute distress Resp: Effort & Inspection: normal respiratory effort Cardio: Rate: regular rate GI: Inspection: No distended Palpation (GI): Soft to palpation, not firm, nontender and no guarding Objective Data Active Medications Acetaminophen (Acetaminophen 325 Mg Tablet) 650 mg PO Q6H PRN PRN Reason: Headache/Pain Mild Scale (1-3) Last Admin: 01/12/22 16:33 Dose: 650 mg Documented by: ALAN Al Hydroxide/Mg Hydroxide (Magnesium Hydrox/Alum Hydrox 30 Ml Oral.Susp) 30 ml PO Q6H PRN PRN Reason: Heartburn/Nausea Benzocaine (Throat Lozenge, Medicated Lozenge) 1 lozenge MUCOUS MEM Q2H PRN PRN Reason: Sore Throat Last Admin: 01/11/22 12:29 Dose: 1 lozenge Documented by: PERLITA Buprenorphine/Naloxone (Buprenorphine/Naloxone 8/2 Mg Film) 1 film SUBLINGUAL TID [facility] Last Admin: 01/16/22 22:34 Dose: 1 film Documented by: SHAHEEN Calcium Carbonate (Calcium Carbonate 750 Mg Tab.Chew) 750 mg PO Q4H PRN PRN Reason: acid reflux Last Admin: 01/07/22 22:46 Dose: 750 mg Documented by: SHAHEEN Clonidine HCl (Clonidine Hcl 0.1 Mg Tablet) 0.1 mg PO TID [facility]; Protocol Last Admin: 01/16/22 22:35 Dose: 0.1 mg Documented by: SHAHEEN Famotidine (Famotidine 20 Mg Tablet) 20 mg PO BID [facility] Last Admin: 01/16/22 22:34 Dose: 20 mg Documented by: SHAHEEN Folic Acid (Folic Acid 1 Mg Tablet) 1 mg PO DAILY [facility] Last Admin: 01/16/22 09:41 Dose: 1 mg Documented by: ALAN Gabapentin (Gabapentin 600 Mg Tablet) 600 mg PO TID [facility] Last Admin: 01/16/22 22:35 Dose: 600 mg Documented by: SHAHEEN Hydrocortisone (Hydrocortisone 1 % Ointment 28.35 Gm Tube) 1 appl TOPICAL BID PRN; Protocol PRN Reason: hand/forearm rash Last Admin: 01/16/22 15:59 Dose: 1 appl Documented by: ALAN Hydroxyzine HCl (Hydroxyzine Hcl 25 Mg Tablet) 25 mg PO Q6H PRN PRN Reason: Anxiety/sleep Last Admin: 01/15/22 20:33 Dose: 25 mg Documented by: ISRAEL Ibuprofen (Ibuprofen 800 Mg Tablet) 800 mg PO Q8H PRN PRN Reason: mod pain Last Admin: 01/15/22 00:53 Dose: 800 mg Documented by: MYLES Lorazepam (Lorazepam 1 Mg Tablet) 1 mg PO Q6H PRN PRN Reason: Anxiety Last Admin: 01/16/22 22:34 Dose: 1 mg Documented by: SHAHEEN Magnesium Hydroxide (Milk Of Magnesia 30 Ml Oral.Susp) 30 ml PO DAILY PRN PRN Reason: Constipation Last Admin: 01/09/22 20:14 Dose: 30 ml Documented by: ZHOU Multi-Ingred Cream/Lotion/Oil/Oint (Mineral Oil/Petrolatum,White 106 Gm Tube) 1 appl TOPICAL TID PRN PRN Reason: dry skin Last Admin: 01/12/22 21:23 Dose: 1 appl Documented by: SHAHEEN Multivitamins/Vitamin C (Multivitamin Tablet) 1 tab PO DAILY [facility] Last Admin: 01/16/22 09:41 Dose: 1 tab Documented by: ALAN Nicotine (Nicotine 21 Mg Patch.Td24) 21 mg TRANSDERMA DAILY [facility] Last Admin: 01/16/22 09:45 Dose: 21 mg Documented by: ALAN Nicotine Polacrilex (Nicotine Polacrilex 2 Mg Gum) 4 mg BUCCAL Q2H PRN PRN Reason: Nicotine Cravings Last Admin: 01/14/22 19:37 Dose: 4 mg Documented by: ALFRED Ondansetron HCl (Ondansetron Odt 4 Mg Tab.Rapdis) 4 mg TRANSLINGU Q6H PRN PRN Reason: Nausea and Vomiting Last Admin: 01/15/22 20:34 Dose: 4 mg Documented by: ISRAEL Quetiapine Fumarate (Quetiapine Fumarate 100 Mg Tablet) 100 mg PO DAILY@0800,1500 [facility] Last Admin: 01/16/22 16:03 Dose: 100 mg Documented by: ALAN Quetiapine Fumarate (Quetiapine Fumarate 100 Mg Tablet) 100 mg PO Q6H PRN PRN Reason: Anxiety Last Admin: 01/16/22 13:16 Dose: 100 mg Documented by: ALAN Quetiapine Fumarate (Quetiapine Fumarate 200 Mg Tablet) 200 mg PO BEDTIME [facility] Last Admin: 01/16/22 22:35 Dose: 200 mg Documented by: SHAHEEN Simethicone (Simethicone 80 Mg Tab.Chew) 80 mg PO TID PRN PRN Reason: bloating Thiamine HCl (Thiamine Hcl 100 Mg Tablet) 100 mg PO DAILY [facility] Last Admin: 01/16/22 09:41 Dose: 100 mg Documented by: ALAN Trazodone HCl (Trazodone Hcl 100 Mg Tablet) 200 mg PO BEDTIME [facility] Last Admin: 01/16/22 22:35 Dose: 200 mg Documented by: SHAHEEN Labs CBC & Chem 7: 01/12/22 07:00 01/10/22 13:53 Procedures Date of Service Date of Service: 01/17/22 Progress Note: A&P Assessment and plan (1) Diarrhea: Status: Acute Assessment and Plan: Clinically not obstructed Exam benign Abdomen soft, nontender Recommend GI consult for persistent diarrhea Fall Risk Details Current Medications: Current Medications Acetaminophen (Acetaminophen 325 Mg Tablet) 650 mg PO Q6H PRN PRN Reason: Headache/Pain Mild Scale (1-3) Last Admin: 01/12/22 16:33 Dose: 650 mg Documented by: Al Hydroxide/Mg Hydroxide (Magnesium Hydrox/Alum Hydrox 30 Ml Oral.Susp) 30 ml PO Q6H PRN PRN Reason: Heartburn/Nausea Benzocaine (Throat Lozenge, Medicated Lozenge) 1 lozenge MUCOUS MEM Q2H PRN PRN Reason: Sore Throat Last Admin: 01/11/22 12:29 Dose: 1 lozenge Documented by: Buprenorphine/Naloxone (Buprenorphine/Naloxone 8/2 Mg Film) 1 film SUBLINGUAL TID [facility] Last Admin: 01/16/22 22:34 Dose: 1 film Documented by: Calcium Carbonate (Calcium Carbonate 750 Mg Tab.Chew) 750 mg PO Q4H PRN PRN Reason: acid reflux Last Admin: 01/07/22 22:46 Dose: 750 mg Documented by: Clonidine HCl (Clonidine Hcl 0.1 Mg Tablet) 0.1 mg PO TID [facility]; Protocol Last Admin: 01/16/22 22:35 Dose: 0.1 mg Documented by: Famotidine (Famotidine 20 Mg Tablet) 20 mg PO BID [facility] Last Admin: 01/16/22 22:34 Dose: 20 mg Documented by: Folic Acid (Folic Acid 1 Mg Tablet) 1 mg PO DAILY [facility] Last Admin: 01/16/22 09:41 Dose: 1 mg Documented by: Gabapentin (Gabapentin 600 Mg Tablet) 600 mg PO TID [facility] Last Admin: 01/16/22 22:35 Dose: 600 mg Documented by: Hydrocortisone (Hydrocortisone 1 % Ointment 28.35 Gm Tube) 1 appl TOPICAL BID PRN; Protocol PRN Reason: hand/forearm rash Last Admin: 01/16/22 15:59 Dose: 1 appl Documented by: Hydroxyzine HCl (Hydroxyzine Hcl 25 Mg Tablet) 25 mg PO Q6H PRN PRN Reason: Anxiety/sleep Last Admin: 01/15/22 20:33 Dose: 25 mg Documented by: Ibuprofen (Ibuprofen 800 Mg Tablet) 800 mg PO Q8H PRN PRN Reason: mod pain Last Admin: 01/15/22 00:53 Dose: 800 mg Documented by: Lorazepam (Lorazepam 1 Mg Tablet) 1 mg PO Q6H PRN PRN Reason: Anxiety Last Admin: 01/16/22 22:34 Dose: 1 mg Documented by: Magnesium Hydroxide (Milk Of Magnesia 30 Ml Oral.Susp) 30 ml PO DAILY PRN PRN Reason: Constipation Last Admin: 01/09/22 20:14 Dose: 30 ml Documented by: Multi-Ingred Cream/Lotion/Oil/Oint (Mineral Oil/Petrolatum,White 106 Gm Tube) 1 appl TOPICAL TID PRN PRN Reason: dry skin Last Admin: 01/12/22 21:23 Dose: 1 appl Documented by: Multivitamins/Vitamin C (Multivitamin Tablet) 1 tab PO DAILY [facility] Last Admin: 01/16/22 09:41 Dose: 1 tab Documented by: Nicotine (Nicotine 21 Mg Patch.Td24) 21 mg TRANSDERMA DAILY [facility] Last Admin: 01/16/22 09:45 Dose: 21 mg Documented by: Nicotine Polacrilex (Nicotine Polacrilex 2 Mg Gum) 4 mg BUCCAL Q2H PRN PRN Reason: Nicotine Cravings Last Admin: 01/14/22 19:37 Dose: 4 mg Documented by: Ondansetron HCl (Ondansetron Odt 4 Mg Tab.Rapdis) 4 mg TRANSLINGU Q6H PRN PRN Reason: Nausea and Vomiting Last Admin: 01/15/22 20:34 Dose: 4 mg Documented by: Quetiapine Fumarate (Quetiapine Fumarate 100 Mg Tablet) 100 mg PO DAILY@0800,1500 [facility] Last Admin: 01/16/22 16:03 Dose: 100 mg Documented by: Quetiapine Fumarate (Quetiapine Fumarate 100 Mg Tablet) 100 mg PO Q6H PRN PRN Reason: Anxiety Last Admin: 01/16/22 13:16 Dose: 100 mg Documented by: Quetiapine Fumarate (Quetiapine Fumarate 200 Mg Tablet) 200 mg PO BEDTIME [facility] Last Admin: 01/16/22 22:35 Dose: 200 mg Documented by: Simethicone (Simethicone 80 Mg Tab.Chew) 80 mg PO TID PRN PRN Reason: bloating Thiamine HCl (Thiamine Hcl 100 Mg Tablet) 100 mg PO DAILY [facility] Last Admin: 01/16/22 09:41 Dose: 100 mg Documented by: Trazodone HCl (Trazodone Hcl 100 Mg Tablet) 200 mg PO BEDTIME [facility] Last Admin: 01/16/22 22:35 Dose: 200 mg Documented by: Time Spent With Patient Time: Total time spent is greater than 50% in coordination of care (as documented) at patient's floor/unit and/or counseling patient: Time with patient: 15 - 24 minutes Quality Stroke Does the patient have a stroke diagnosis?: No VTE Prior VTE?: No VTE Risk Level:: Medical - low VTE Device Contraindication: Treatment Not Indicated VTE Drug Contraindication: Treatment Not Indicated
[2022-01-17] MEDS: Famotidine 20 MG TABLET PO ×2 (08:32→20:28)
[2022-01-17] MEDS: LORazepam 1 MG TABLET PO ×3 (08:32→22:00)
[2022-01-17] MEDS: cloNIDine HCL 0.1 MG TABLET PO ×3 (08:32→20:28)
[2022-01-17] MEDS: Folic Acid 1 MG TABLET PO (08:32)
[2022-01-17] MEDS: Gabapentin 600 MG TABLET PO ×3 (08:32→20:28)
[2022-01-17] MEDS: QUEtiapine Fumarate 100 MG TABLET PO ×4 (08:32→20:40)
[2022-01-17] MEDS: Thiamine HCL 100 MG TABLET PO (08:32)
[2022-01-17] MEDS: Multivitamin TABLET 1 TAB PO (08:32)
[2022-01-17] MEDS: Nicotine 21 MG PATCH.TD24 TRANSDERMA (08:33)
[2022-01-17] MEDS: Buprenorphine/Naloxone 8/2 mg FILM 1 FILM SUBLINGUAL ×3 (08:33→20:28)
[2022-01-17 08:37] VITALS: BP 106/66; PULSE 90; RESP 17; TEMP 36.4; O2SAT 97
[2022-01-17] MEDS: hydrOXYzine HCL 25 MG TABLET PO (11:19)
[2022-01-17 11:59] VITALS: BMI 26.4
--- NOTE | 2022-01-17 12:31 | HO.PSYCHPN ---
Subjective Subjective Date of Service: 01/17/22 Reason For Visit: SI Subjective Notes: Conditional Voluntary Interim History: Pt continues to present with loose stools, incontinence of stool which is new to her. She reports poor sleep due to this. Surgeon recommends GI consult- which was ordered. Pt continues to endorse depressed mood, anhedonia, passive SI, hopeless, anxious. She denies VH/AH. Will try lithium low dose to not worsened GI symptoms. Pt has been visible in the unit, low frustration tolerance and irritability. No behavioral concerns. Medication Compliance: Yes Side effects from medications: No Review of Systems Review of Systems Constitutional : No Weight loss, No Fever, No Chills, No Night Sweats, No Fatigue, No Malaise ENT/Mouth : No Hearing loss, No Ear Pain, No Nasal Congestion, No Sinus Pain, No Hoarseness, No sore throat, No Rhinorrhea, No Swallowing Difficulty Eyes: No Eye Pain, No Swelling, No Redness, No Foreign Body, No Discharge, No Vision Changes Cardiovascular : No Chest Pain, No SOB, No Dyspnea on Exertion, No Orthopnea, No Edema, No Palpitations Respiratory : No Cough, No Sputum, No Wheezing, No Smoke Exposure, No Dyspnea Gastrointestinal : No Nausea, No Vomiting, No Diarrhea, No Constipation, No abdominal Pain, No Hematochezia, No Melena Genitourinary : no irregular bleeding, No Dysuria, No Urinary Frequency, No Hematuria, No Urinary Incontinence, No Urgency, No Flank Pain, No Urinary Flow Changes, No Hesitancy Musculoskeletal : No joint pain, No Myalgias, No Joint Swelling Skin : No Skin Lesions, No rash Neuro : No Weakness, No Numbness, No Paresthesias, No Loss of Consciousness, No Dizziness, No Headache Psych : Complaining of feeling anxious, depressed, vague suicidal ideation, no homicidal ideation, denies hallucinations Heme/Lymph: No Bruising, No Bleeding,No Lymphadenopathy Endocrine : No Polyuria, No Polydipsia, No Temperature Intolerance Yes all other systems are reviewed and are negative Constitutional: Denies chills, Reports fatigue, Denies fever(s), Reports lethargy, Reports night sweats, Denies stops breathing during sleep and Denies weakness Eyes: Reports no additional eye complaints Denies dizziness Cardiovascular: Denies chest pain, Denies chest pain at rest, Denies epigastric discomfort, Denies diaphoresis, Denies rapid heart rate, Denies leg edema, Denies lightheadedness and Denies dyspnea Respiratory: Denies no additional respiratory complaints, Denies cough and Denies dyspnea Gastrointestinal: Reports bloating, Reports constipation, Reports GI cramping, Reports excessive flatus, Reports diarrhea, Reports nausea and Reports vomiting Musculoskeletal: Denies no additional musculoskeletal complaints and Denies muscle weakness Denies system reviewed and no additional complaints, except as documented, Denies dizziness, Denies memory loss and Denies weakness Psychiatric: Reports depression, Reports difficulty concentrating, Reports hopelessness and Denies memory loss Endocrine: Reports fatigue Mental Status Exam Mental Status Exam Narrative: Appearance: casually groomed, fair hygiene, in NAD Behavior: cooperative Psychomotor: restless with some irritability and Speech: clear, with pressured speech TP: perseverative TC: no signs of psychosis, wanting to continue treatment, depressed Mood: overwhelmed Affect: dysphoric HI: none SI: passive SI VH/AH: none Delusions: none Insight/judgment: fair. Memory/cog: alert, oriented x 3. grossly intact to conversational testing. Diagnostics Vital Signs (24Hr): Vital Signs - 24 hr 01/16/22 22:47 01/17/22 08:37 01/17/22 15:15 Temperature 97.7 F 97.6 F 97.7 F Pulse Rate 99 90 95 Respiratory Rate 18 17 17 Blood Pressure 127/70 106/66 110/66 Pulse Oximetry 97 97 98 BMI result Body Mass Index 26.4 Labs Results: 01/12/22 07:00 01/10/22 13:53 Imaging Radiology Impressions: ITS Impressions Abdomen/Pelvis CT 01/14/22 19:21 IMPRESSION: Partial small bowel obstruction. The transition in the left lower abdomen. Left nephrolithiasis Fleischner guidelines were followed. Medications Medications Current Medications Acetaminophen (Acetaminophen 325 Mg Tablet) 650 mg PO Q6H PRN PRN Reason: Headache/Pain Mild Scale (1-3) Last Admin: 01/12/22 16:33 Dose: 650 mg Documented by: Al Hydroxide/Mg Hydroxide (Magnesium Hydrox/Alum Hydrox 30 Ml Oral.Susp) 30 ml PO Q6H PRN PRN Reason: Heartburn/Nausea Benzocaine (Throat Lozenge, Medicated Lozenge) 1 lozenge MUCOUS MEM Q2H PRN PRN Reason: Sore Throat Last Admin: 01/11/22 12:29 Dose: 1 lozenge Documented by: Buprenorphine/Naloxone (Buprenorphine/Naloxone 8/2 Mg Film) 1 film SUBLINGUAL TID [facility] Last Admin: 01/17/22 15:10 Dose: 1 film Documented by: Calcium Carbonate (Calcium Carbonate 750 Mg Tab.Chew) 750 mg PO Q4H PRN PRN Reason: acid reflux Last Admin: 01/07/22 22:46 Dose: 750 mg Documented by: Clonidine HCl (Clonidine Hcl 0.1 Mg Tablet) 0.1 mg PO TID [facility]; Protocol Last Admin: 01/17/22 15:11 Dose: 0.1 mg Documented by: Famotidine (Famotidine 20 Mg Tablet) 20 mg PO BID [facility] Last Admin: 01/17/22 08:32 Dose: 20 mg Documented by: Folic Acid (Folic Acid 1 Mg Tablet) 1 mg PO DAILY [facility] Last Admin: 01/17/22 08:32 Dose: 1 mg Documented by: Gabapentin (Gabapentin 600 Mg Tablet) 600 mg PO TID [facility] Last Admin: 01/17/22 15:11 Dose: 600 mg Documented by: Hydrocortisone (Hydrocortisone 1 % Ointment 28.35 Gm Tube) 1 appl TOPICAL BID PRN; Protocol PRN Reason: hand/forearm rash Last Admin: 01/16/22 15:59 Dose: 1 appl Documented by: Hydroxyzine HCl (Hydroxyzine Hcl 25 Mg Tablet) 25 mg PO Q6H PRN PRN Reason: Anxiety/sleep Last Admin: 01/17/22 11:19 Dose: 25 mg Documented by: Ibuprofen (Ibuprofen 800 Mg Tablet) 800 mg PO Q8H PRN PRN Reason: mod pain Last Admin: 01/15/22 00:53 Dose: 800 mg Documented by: [place]rosse Carbonate (Lacrosse Carbonate Er 300 Mg Tablet.Er) 300 mg PO BEDTIME [facility] Loperamide HCl (Loperamide Hcl 2 Mg Capsule) 2 mg PO Q4H PRN PRN Reason: Loose Stool Lorazepam (Lorazepam 1 Mg Tablet) 1 mg PO Q6H PRN PRN Reason: Anxiety Last Admin: 01/17/22 15:13 Dose: 1 mg Documented by: Magnesium Hydroxide (Milk Of Magnesia 30 Ml Oral.Susp) 30 ml PO DAILY PRN PRN Reason: Constipation Last Admin: 01/09/22 20:14 Dose: 30 ml Documented by: Multi-Ingred Cream/Lotion/Oil/Oint (Mineral Oil/Petrolatum,White 106 Gm Tube) 1 appl TOPICAL TID PRN PRN Reason: dry skin Last Admin: 01/12/22 21:23 Dose: 1 appl Documented by: Multivitamins/Vitamin C (Multivitamin Tablet) 1 tab PO DAILY [facility] Last Admin: 01/17/22 08:32 Dose: 1 tab Documented by: Nicotine (Nicotine 21 Mg Patch.Td24) 21 mg TRANSDERMA DAILY [facility] Last Admin: 01/17/22 08:33 Dose: 21 mg Documented by: Nicotine Polacrilex (Nicotine Polacrilex 2 Mg Gum) 4 mg BUCCAL Q2H PRN PRN Reason: Nicotine Cravings Last Admin: 01/14/22 19:37 Dose: 4 mg Documented by: Ondansetron HCl (Ondansetron Odt 4 Mg Tab.Rapdis) 4 mg TRANSLINGU Q6H PRN PRN Reason: Nausea and Vomiting Last Admin: 01/15/22 20:34 Dose: 4 mg Documented by: Quetiapine Fumarate (Quetiapine Fumarate 100 Mg Tablet) 100 mg PO DAILY@0800,1500 [facility] Last Admin: 01/17/22 15:11 Dose: 100 mg Documented by: Quetiapine Fumarate (Quetiapine Fumarate 100 Mg Tablet) 100 mg PO Q6H PRN PRN Reason: Anxiety Last Admin: 01/17/22 11:19 Dose: 100 mg Documented by: Quetiapine Fumarate (Quetiapine Fumarate 200 Mg Tablet) 200 mg PO BEDTIME [facility] Last Admin: 01/16/22 22:35 Dose: 200 mg Documented by: Simethicone (Simethicone 80 Mg Tab.Chew) 80 mg PO TID PRN PRN Reason: bloating Thiamine HCl (Thiamine Hcl 100 Mg Tablet) 100 mg PO DAILY [facility] Last Admin: 01/17/22 08:32 Dose: 100 mg Documented by: Trazodone HCl (Trazodone Hcl 100 Mg Tablet) 200 mg PO BEDTIME [facility] Last Admin: 01/16/22 22:35 Dose: 200 mg Documented by: Allergies Allergies Allergy/AdvReac Type Severity Reaction Status Date / Time No Known Allergies Allergy Verified 12/06/21 09:33 Assessment & Plan Assessment & Plan (1) Alcohol use disorder, severe, dependence: Status: Acute Code(s): F10.20 - Alcohol dependence, uncomplicated (2) Cocaine use disorder: Status: Acute Code(s): F14.10 - Cocaine abuse, uncomplicated (3) Bipolar 2 disorder: Status: Acute Code(s): F31.81 - Bipolar II disorder Plan 1. trileptal was d/c as it could lower suboxone levels appear to have some withdrawal s/s 2. lamictal d/c due to new peripheral rash and lack of efficacy (although dose relatively low but due to long titration process will try different mood stabilizer) 3. start lithium CR 300mg po qhs- monitor worsening of GI symptoms. 4. continue seroquel I spent __25____ minutes with the patient and/or on the patient floor today, greater than?50% of which was spent counseling/coordinating care. Reason for contiued inpatient stay Substantial Risk for: harm to self
[2022-01-17 15:15] VITALS: BP 110/66; PULSE 95; RESP 17; TEMP 36.5; O2SAT 98
[2022-01-17 16:31] LABS: Alanine Aminotransferase 27 U/L (0-31); Albumin Level 3.7 g/dL (3.5-5.0); Alkaline Phosphatase 79 U/L (39-117); Anion Gap 9 (12-20); Aspartate Amino Transferase 20 U/L (5-31); Bilirubin Total 0.2 mg/dL (0.0-1.0); Blood Urea Nitrogen 11 mg/dL (9-16); Calcium 9.2 mg/dL (8.4-10.2); Carbon Dioxide 29 mmol/L (22-29); Chloride 105 mmol/L (96-108); Creatinine Clr Calc Pharmacy 103.2; Estimated Glomerular Filt Rate > 60; Glucose Random 88 mg/dL (60-115); Potassium 4.2 mmol/L (3.3-5.1); Sodium 139 mmol/L (135-145); Total Protein 6.1 g/dL (6.5-8.0)
[2022-01-17] MEDS: Lithium Carbonate ER 300 MG TABLET.ER PO (20:27)
[2022-01-17] MEDS: QUEtiapine Fumarate 200 MG TABLET PO (20:28)
[2022-01-17 20:33] VITALS: BP 101/63; PULSE 100; TEMP 36.5; O2SAT 96
[2022-01-17] MEDS: traZODone HCL 100 MG TABLET 200 MG PO (22:00)
[2022-01-17] MEDS: Clotrimazole 1 % Cream 15 GM TUBE 1 APPL TOPICAL (22:07)
--- NOTE | 2022-01-18 07:51 | P.CNGI_ITS ---
History of Present Illness Data of Consult Service Date: 01/18/22 Requesting physician: Vicki Cisse Primary Care Provider: Unknown Physician HPI Reason for consult: Diarrhea 31 YF seen at [facility] on 01/04/22 with suicidal ideation: Patient comes to the emergency room complaining of anxiety, suicidal ideation.? Patient states that she has been off of her medications for about a month now.? Patient states that every time that she comes here, gets limited for 3 days, then gets discharged and every time she gets admitted and discharge, feels that her situation/mental status worsens.? Patient denies homicidal ideation.? Patient has no specific plan, patient states that she would use any means to end her life.? Patient admits to drinking alcohol and using cocaine and heroin Pt was admitted to the Psyche unit. 01/15/22 Pt seen by surgery for abdominal pain - C Diff was negative. Pt was referred to GI for further evaluation: continues to present with loose stools, incontinence of stool which is new to her. She reports poor sleep due to this. Surgeon recommends GI consult- which was ordered. Pt continues to endorse depressed mood, anhedonia, passive SI, hopeless, anxious. She denies VH/AH. Will try lithium low dose to not worsened GI symptoms. Pt has been visible in the unit, low frustration tolerance and irritability. No behavioral concerns. Medication Compliance: Yes Side effects from medications: No Pt is on gabapentin, seorquel and lamictal for mood stabilization Patient reports having diarrhea for the past 5-6 days. She notes 5-6 loose and liquid stools a day without blood or mucus. BMs are foul smelling and float in the toilet. Diarrhea is post prandial during the day and she has nocturnal diarrhea with fecal incontinence and has to wear a diaper at night. Patient is unclear if diarrhea is associated with intake of milk products. She denies past history of diarrhea. Patient reports nausea, abdominal cramps and a decrease in her appetite - has been eating less Sight and smell of food is disgusting . Pt admits to smoking 1 PPD x 13 yrs. Positive hx of ETOH and drug abuse - cocaine and heroin (urine drug screen was positive on admission) IMAGING STUDIES: 01/10/[address] SCAN SHOWED: GASTROINTESTINAL TRACT: Loops of bowel aren't distended. Loops of small bowel aren't dilated with questionable partial small bowel obstruction, zone of transition is not clearly seen, possibly in the left lower quadrant. Appendix is surgically absent..? Review of Systems Review of Systems: Constitutional : No Weight loss, No Fever, No Chills, No Night Sweats, No Fatigue, No Malaise ENT/Mouth : No Hearing loss, No Ear Pain, No Nasal Congestion, No Sinus Pain, No Hoarseness, No sore throat, No Rhinorrhea, No Swallowing Difficulty Eyes: No Eye Pain, No Swelling, No Redness, No Foreign Body, No Discharge, No Vision Changes Cardiovascular : No Chest Pain, No SOB, No Dyspnea on Exertion, No Orthopnea, No Edema, No Palpitations Respiratory : No Cough, No Sputum, No Wheezing, No Smoke Exposure, No Dyspnea Gastrointestinal : No Nausea, No Vomiting, No Diarrhea, No Constipation, No abdominal Pain, No Hematochezia, No Melena Genitourinary : no irregular bleeding, No Dysuria, No Urinary Frequency, No Hematuria, No Urinary Incontinence, No Urgency, No Flank Pain, No Urinary Flow Changes, No Hesitancy Musculoskeletal : No joint pain, No Myalgias, No Joint Swelling Skin : No Skin Lesions, No rash Neuro : No Weakness, No Numbness, No Paresthesias, No Loss of Consciousness, No Dizziness, No Headache Psych : Complaining of feeling anxious, depressed, vague suicidal ideation, no homicidal ideation, denies hallucinations Heme/Lymph: No Bruising, No Bleeding,No Lymphadenopathy Endocrine : No Polyuria, No Polydipsia, No Temperature Intolerance Yes all other systems are reviewed and are negative Constitutional: Constitutional: Denies chills, Reports fatigue, Denies fever(s), Reports lethargy, Reports night sweats, Denies stops breathing during sleep and Denies weakness Eyes: Eyes: Reports no additional eye complaints ENT: Denies dizziness Cardiovascular: Cardiovascular: Denies chest pain, Denies chest pain at rest, Denies epigastric discomfort, Denies diaphoresis, Denies rapid heart rate, Denies leg edema, Denies lightheadedness and Denies dyspnea Respiratory: Respiratory: Denies no additional respiratory complaints, Denies cough and Denies dyspnea Gastrointestinal: Gastrointestinal: Reports abdominal pain, Reports bloating, Reports constipation, Reports GI cramping, Reports excessive flatus, Reports diarrhea, Reports nausea and Reports vomiting Musculoskeletal: Musculoskeletal: Denies no additional musculoskeletal complaints and Denies muscle weakness Neurologic: Denies system reviewed and no additional complaints, except as documented, Denies dizziness, Denies memory loss and Denies weakness Psychiatric: Psychiatric: Reports depression, Reports difficulty concentrating, Reports hopelessness and Denies memory loss Endocrine: Endocrine: Reports fatigue PMFSH Past Medical History Medical History Alcohol use disorder, severe, dependence Alcohol use disorder, severe, dependence Cocaine use Cocaine use disorder Cocaine use disorder Diarrhea JOANN (generalized anxiety disorder) History of hepatitis C MDD (major depressive disorder), recurrent episode, moderate Opiate abuse, continuous Opioid use disorder Opioid use disorder, moderate, dependence Polysubstance abuse Smoker Functional capacity: independent ambulation Surgical History Surgical History S/P laparoscopic appendectomy Social History Social History Household Members: Significant Other Household Members Other:: ex boyfriend Housing: Apartment Housing Other:: Rented a room with ex in an apartment Do you presently have visiting nurse or other home services: No Alcohol intake: current Patient Tobacco Use Status: Current everyday Tobacco user Tobacco use type: Cigarette Cigarette Packs Per Day: 0.75 Cigarettes Per Day: 15.0 Years Smoked: 13 Smoked in Last 30 Days: Yes e-Cigarette/Vaping Use: Never Used Patient Interested in Nicotine Replacement: Yes Patient Given Instructions on How to Stop Smoking: No Second Hand Smoke Exposure: Yes Use of substances other than those prescribed or required for medical reasons: Yes Substance Use Type: Crack/Cocaine and Heroin Substance Use Frequency: Occasionally Last Used Substance: Days (ago) Last Used Substance Other:: January 03 2022 Currently Displaying Signs/Symptoms of Drug Intoxication Withdrawal: No Any prior treatment program specific to substance use: Yes Have you been hit, kicked, punched, or otherwise hurt by someone within the past year? If so, by whom?: No Do you feel safe in your current relationship?: No Is there a partner from a previous relationship who is making you feel unsafe now?: No Are you made to feel afraid or neglected: No Spiritual Healthcare Practices: Patient denies. Quaker Healthcare Practices: Patient denies. Cultural Healthcare Practices: Patient denies. Advance Directives: No Advance Directives Information Provided: Yes Healthcare Proxy: No Guardian: No Do you have thoughts of harming others: None Do you have a plan to hurt others: No Plan Recently lost weight without trying: No How much weight loss: Not applicable Eating poorly because of decreased appetite: No Nutrition screen score: 0 Nutrition Risks: No Nutritional Risk Patient : No : No Poor oral hygiene: No service: No Current occupational status: unemployed Sexual orientation: Don't Know Meds Allergies Allergy/AdvReac Type Severity Reaction Status Date / Time No Known Allergies Allergy Verified 12/06/21 09:33 Active Medications: Current Medications Acetaminophen (Acetaminophen 325 Mg Tablet) 650 mg PO Q6H PRN PRN Reason: Headache/Pain Mild Scale (1-3) Last Admin: 01/12/22 16:33 Dose: 650 mg Documented by: Al Hydroxide/Mg Hydroxide (Magnesium Hydrox/Alum Hydrox 30 Ml Oral.Susp) 30 ml PO Q6H PRN PRN Reason: Heartburn/Nausea Benzocaine (Throat Lozenge, Medicated Lozenge) 1 lozenge MUCOUS MEM Q2H PRN PRN Reason: Sore Throat Last Admin: 01/11/22 12:29 Dose: 1 lozenge Documented by: Buprenorphine/Naloxone (Buprenorphine/Naloxone 8/2 Mg Film) 1 film SUBLINGUAL TID [facility] Last Admin: 01/17/22 20:28 Dose: 1 film Documented by: Calcium Carbonate (Calcium Carbonate 750 Mg Tab.Chew) 750 mg PO Q4H PRN PRN Reason: acid reflux Last Admin: 01/07/22 22:46 Dose: 750 mg Documented by: Clonidine HCl (Clonidine Hcl 0.1 Mg Tablet) 0.1 mg PO TID [facility]; Protocol Last Admin: 01/17/22 20:28 Dose: 0.1 mg Documented by: Clotrimazole (Clotrimazole 1 % Cream 15 Gm Tube) 1 appl TOPICAL BID [facility]; Protocol Last Admin: 01/17/22 22:07 Dose: 1 appl Documented by: Famotidine (Famotidine 20 Mg Tablet) 20 mg PO BID [facility] Last Admin: 01/17/22 20:28 Dose: 20 mg Documented by: Folic Acid (Folic Acid 1 Mg Tablet) 1 mg PO DAILY [facility] Last Admin: 01/17/22 08:32 Dose: 1 mg Documented by: Gabapentin (Gabapentin 600 Mg Tablet) 600 mg PO TID [facility] Last Admin: 01/17/22 20:28 Dose: 600 mg Documented by: Hydrocortisone (Hydrocortisone 1 % Ointment 28.35 Gm Tube) 1 appl TOPICAL BID PRN; Protocol PRN Reason: hand/forearm rash Last Admin: 01/16/22 15:59 Dose: 1 appl Documented by: Hydroxyzine HCl (Hydroxyzine Hcl 25 Mg Tablet) 25 mg PO Q6H PRN PRN Reason: Anxiety/sleep Last Admin: 01/17/22 11:19 Dose: 25 mg Documented by: Ibuprofen (Ibuprofen 800 Mg Tablet) 800 mg PO Q8H PRN PRN Reason: mod pain Last Admin: 01/15/22 00:53 Dose: 800 mg Documented by: Power Carbonate (Power Carbonate Er 300 Mg Tablet.Er) 300 mg PO BEDTIME [facility] Last Admin: 01/17/22 20:27 Dose: 300 mg Documented by: Loperamide HCl (Loperamide Hcl 2 Mg Capsule) 2 mg PO Q4H PRN PRN Reason: Loose Stool Lorazepam (Lorazepam 1 Mg Tablet) 1 mg PO Q6H PRN PRN Reason: Anxiety Last Admin: 01/17/22 22:00 Dose: 1 mg Documented by: Magnesium Hydroxide (Milk Of Magnesia 30 Ml Oral.Susp) 30 ml PO DAILY PRN PRN Reason: Constipation Last Admin: 01/09/22 20:14 Dose: 30 ml Documented by: Multi-Ingred Cream/Lotion/Oil/Oint (Mineral Oil/Petrolatum,White 106 Gm Tube) 1 appl TOPICAL TID PRN PRN Reason: dry skin Last Admin: 01/12/22 21:23 Dose: 1 appl Documented by: Multivitamins/Vitamin C (Multivitamin Tablet) 1 tab PO DAILY [facility] Last Admin: 01/17/22 08:32 Dose: 1 tab Documented by: Nicotine (Nicotine 21 Mg Patch.Td24) 21 mg TRANSDERMA DAILY [facility] Last Admin: 01/17/22 08:33 Dose: 21 mg Documented by: Nicotine Polacrilex (Nicotine Polacrilex 2 Mg Gum) 4 mg BUCCAL Q2H PRN PRN Reason: Nicotine Cravings Last Admin: 01/14/22 19:37 Dose: 4 mg Documented by: Ondansetron HCl (Ondansetron Odt 4 Mg Tab.Rapdis) 4 mg TRANSLINGU Q6H PRN PRN Reason: Nausea and Vomiting Last Admin: 01/15/22 20:34 Dose: 4 mg Documented by: Quetiapine Fumarate (Quetiapine Fumarate 100 Mg Tablet) 100 mg PO DAILY@0800,1500 [facility] Last Admin: 01/17/22 15:11 Dose: 100 mg Documented by: Quetiapine Fumarate (Quetiapine Fumarate 100 Mg Tablet) 100 mg PO Q6H PRN PRN Reason: Anxiety Last Admin: 01/17/22 20:40 Dose: 100 mg Documented by: Quetiapine Fumarate (Quetiapine Fumarate 200 Mg Tablet) 200 mg PO BEDTIME [facility] Last Admin: 01/17/22 20:28 Dose: 200 mg Documented by: Simethicone (Simethicone 80 Mg Tab.Chew) 80 mg PO TID PRN PRN Reason: bloating Thiamine HCl (Thiamine Hcl 100 Mg Tablet) 100 mg PO DAILY [facility] Last Admin: 01/17/22 08:32 Dose: 100 mg Documented by: Trazodone HCl (Trazodone Hcl 100 Mg Tablet) 200 mg PO BEDTIME [facility] Last Admin: 01/17/22 22:00 Dose: 200 mg Documented by: Home Medications Medication Instructions Recorded Confirmed Last Taken Type buprenorphine 8 mg-naloxone 2 mg 1 strip SUBLINGUAL TID 01/04/22 01/04/22 Unknown History sublingual film clonidine HCl 0.1 mg tablet 0.1 mg PO TID 01/05/22 01/05/22 Unknown History docusate sodium 100 mg capsule 100 mg PO BID PRN 01/05/22 01/05/22 Unknown History famotidine 20 mg tablet 20 mg PO BID 01/05/22 01/05/22 Unknown History folic acid 1 mg tablet 1 mg PO DAILY 01/05/22 01/05/22 Unknown History gabapentin 600 mg tablet 600 mg PO TID 01/05/22 01/05/22 Unknown History lamotrigine 25 mg tablet 25 mg PO BEDTIME 01/05/22 01/05/22 Unknown History multivitamin 1 tab PO DAILY 01/05/22 01/05/22 Unknown History propranolol 10 mg tablet 20 mg PO TID 01/05/22 01/05/22 Unknown History quetiapine 100 mg tablet 100 mg PO DAILY@0800,1500 01/05/22 01/05/22 Unknown History quetiapine 100 mg tablet 100 mg PO Q6H PRN 01/05/22 01/05/22 Unknown History quetiapine 200 mg tablet 200 mg PO BEDTIME 01/05/22 01/05/22 Unknown History thiamine HCl (vitamin B1) 100 mg 100 mg PO DAILY 01/05/22 01/05/22 Unknown History tablet trazodone 50 mg tablet 50 mg PO BEDTIME PRN 01/05/22 01/05/22 Unknown History Physical Exam Vital Signs: Vital Signs: Last Vital Signs Temp 97.7 F 01/17/22 20:33 Pulse 100 01/17/22 20:33 Resp 17 01/17/22 15:15 BP 101/63 01/17/22 20:33 Pulse Ox 96 01/17/22 20:33 BMI result Body Mass Index 26.4 Const: General: healthy appearing and no acute distress Nutritional Appearance: average body habitus Orientation/consciousness: patient oriented x3 Limitations: no limitations HENMT: Head: Yes normal to inspection Ears: hearing grossly normal bilaterally Mouth: Normal oral and palatal mucosa present Eyes: Sclerae: sclerae normal Pupils: Equal, round and reactive pupils present Neck: Neck: Yes normal visual inspection Chest: Chest palpation & inspection: normal inspection of the chest Resp: Effort & Inspection: normal respiratory effort Auscultation: clear to auscultation bilaterally Cardio: Palpation: normal PMI Rate: regular rate Rhythm: regular rhythm Heart sounds: S1 normal heart sound present, S2 normal heart sound present and no murmurs GI: Palpation (GI): Soft to palpation, nontender and No hepatosplenomegaly present Auscultation: normal bowel sounds Rectal Exam - Female: deferred Skin: General skin exam: no rashes or lesions noted Neuro: General: patient oriented x3, gait normal and moves all extremities Cranial nerves: Yes Equal, round and reactive pupils present Psych: Appearance: grossly normal Mental Status: mental status grossly normal Results Labs CBC & Chem 7: 01/12/22 07:00 01/17/22 15:51 Labs: BMP 01/17/22 15:51 Sodium 139 Potassium 4.2 Chloride 105 Carbon Dioxide 29 BUN 11 Creatinine 0.73 Calcium 9.2 Liver Function 01/17/22 Range/Units 15:51 Total Bilirubin 0.2 (0.0-1.0) mg/dL AST 20 (5-31) U/L ALT 27 (0-31) U/L Alkaline Phosphatase 79 (39-117) U/L Albumin 3.7 (3.5-5.0) g/dL Microbiology Microbiology Results: Microbiology 01/11/22 Unknown Urine clean catch - Urine nunn top Urine Culture - Final No growth. Assessment and Plan (1) Diarrhea: Status: Acute (2) Abdominal pain: Status: Acute Plan 31 YF with bipolar disorder, alcohol and drug abuse admitted with anxiety and suicidal ideation. Patient reported to have diarrhea of for the past 5-6 days and notes 5-6 liquid stools a day without blood or mucus. Diarrhea is post prandial during the day and she has nocturnal diarrhea with fecal incontinence and has to wear a diaper at night. Pt had a normal TSH and Stool was negative for C diff toxin. Diarrhea may be infectious, related to lactose intolerance or related to medications IBD would be less likely given acute onset. RECOMMENDATIONS: 1. Stool for enteropathogens, leucocytes, hemeoccult test, fecal fat and pancreatic elastase - order placed 2. [place] of a fibre supplement to improve stool consistency 3. Imodium at bedtime to prevent nocturnal fecal incontinence Will follow up after stool test results are available Procedures Date of Service Date of Service: 01/18/22
[2022-01-18] MEDS: Nicotine 21 MG PATCH.TD24 TRANSDERMA (08:51)
[2022-01-18 08:52] VITALS: BP 107/53; PULSE 83; RESP 16; TEMP 36.2; O2SAT 97
[2022-01-18] MEDS: Gabapentin 600 MG TABLET PO ×3 (08:52→20:41)
[2022-01-18] MEDS: Thiamine HCL 100 MG TABLET PO (08:52)
[2022-01-18] MEDS: QUEtiapine Fumarate 100 MG TABLET PO ×2 (08:52→15:29)
[2022-01-18] MEDS: Famotidine 20 MG TABLET PO ×2 (08:52→20:41)
[2022-01-18] MEDS: cloNIDine HCL 0.1 MG TABLET PO ×3 (08:52→20:41)
[2022-01-18] MEDS: Multivitamin TABLET 1 TAB PO (08:52)
[2022-01-18] MEDS: Folic Acid 1 MG TABLET PO (08:52)
[2022-01-18] MEDS: Buprenorphine/Naloxone 8/2 mg FILM 1 FILM SUBLINGUAL ×3 (08:52→20:42)
[2022-01-18] MEDS: LORazepam 1 MG TABLET PO ×3 (08:58→20:57)
[2022-01-18 11:36] LABS: OBS1 NEGATIVE (NEGATIVE)
[2022-01-18 11:37] LABS: OBS Int Ctl Valid YES
--- NOTE | 2022-01-18 12:56 | P.PNPSI_ITS ---
Subjective Subjective Date of Service: 01/18/22 Reason For Visit: SI Subjective Notes: Conditional Voluntary Interim History: Pt reports poor sleep last night due to diarrhea. She started lithium last night. She reports feeling tired. She also continues to endorse depressed mood, anhedonia, passive SI. She reports feeling overwhelmed with stressors mainly lack of stable housing, fear of going back on streets and relapsing. She has been visible in the unit, has attended some groups. No behavioral concerns. Medication Compliance: Yes Side effects from medications: No Review of Systems Review of Systems Constitutional : No Weight loss, No Fever, No Chills, No Night Sweats, No Fatigue, No Malaise ENT/Mouth : No Hearing loss, No Ear Pain, No Nasal Congestion, No Sinus Pain, No Hoarseness, No sore throat, No Rhinorrhea, No Swallowing Difficulty Eyes: No Eye Pain, No Swelling, No Redness, No Foreign Body, No Discharge, No Vision Changes Cardiovascular : No Chest Pain, No SOB, No Dyspnea on Exertion, No Orthopnea, No Edema, No Palpitations Respiratory : No Cough, No Sputum, No Wheezing, No Smoke Exposure, No Dyspnea Gastrointestinal : No Nausea, No Vomiting, No Diarrhea, No Constipation, No abdominal Pain, No Hematochezia, No Melena Genitourinary : no irregular bleeding, No Dysuria, No Urinary Frequency, No Hematuria, No Urinary Incontinence, No Urgency, No Flank Pain, No Urinary Flow Changes, No Hesitancy Musculoskeletal : No joint pain, No Myalgias, No Joint Swelling Skin : No Skin Lesions, No rash Neuro : No Weakness, No Numbness, No Paresthesias, No Loss of Consciousness, No Dizziness, No Headache Psych : Complaining of feeling anxious, depressed, vague suicidal ideation, no homicidal ideation, denies hallucinations Heme/Lymph: No Bruising, No Bleeding,No Lymphadenopathy Endocrine : No Polyuria, No Polydipsia, No Temperature Intolerance Yes all other systems are reviewed and are negative Constitutional: Denies chills, Reports fatigue, Denies fever(s), Reports lethargy, Reports night sweats, Denies stops breathing during sleep and Denies weakness Eyes: Reports no additional eye complaints Denies dizziness Cardiovascular: Denies chest pain, Denies chest pain at rest, Denies epigastric discomfort, Denies diaphoresis, Denies rapid heart rate, Denies leg edema, Denies lightheadedness and Denies dyspnea Respiratory: Denies no additional respiratory complaints, Denies cough and Denies dyspnea Gastrointestinal: Reports bloating, Reports constipation, Reports GI cramping, Reports excessive flatus, Reports diarrhea, Reports nausea and Reports vomiting Musculoskeletal: Denies no additional musculoskeletal complaints and Denies muscle weakness Denies system reviewed and no additional complaints, except as documented, Denies dizziness, Denies memory loss and Denies weakness Psychiatric: Reports depression, Reports difficulty concentrating, Reports hopelessness and Denies memory loss Endocrine: Reports fatigue Mental Status Exam Mental Status Exam Narrative: Appearance: casually groomed, fair hygiene, in NAD Behavior: cooperative Psychomotor: restless with some irritability and Speech: clear, with pressured speech TP: perseverative TC: no signs of psychosis, wanting to continue treatment, depressed Mood: overwhelmed Affect: dysphoric HI: none SI: passive SI VH/AH: none Delusions: none Insight/judgment: fair. Memory/cog: alert, oriented x 3. grossly intact to conversational testing. Diagnostics Vital Signs (24Hr): Vital Signs - 24 hr 01/17/22 15:15 01/17/22 20:33 01/18/22 08:52 Temperature 97.7 F 97.7 F 97.2 F Pulse Rate 95 100 83 Respiratory Rate 17 16 Blood Pressure 110/66 101/63 107/53 L Pulse Oximetry 98 96 97 BMI result Body Mass Index 26.4 Labs Results: 01/12/22 07:00 01/17/22 15:51 Labs: Laboratory Results - last 48 hr 01/17/22 01/18/22 15:51 11:08 Sodium 139 Potassium 4.2 Chloride 105 Carbon Dioxide 29 Anion Gap 9 L BUN 11 Creatinine 0.73 Estim Creat Clear Calc 103.2 Estimated GFR > 60 Random Glucose 88 Calcium 9.2 Total Bilirubin 0.2 AST 20 ALT 27 Alkaline Phosphatase 79 Total Protein 6.1 L Albumin 3.7 Stool Occult Blood NEGATIVE Imaging Radiology Impressions: ITS Impressions Abdomen/Pelvis CT 01/14/22 19:21 IMPRESSION: Partial small bowel obstruction. The transition in the left lower abdomen. Left nephrolithiasis Fleischner guidelines were followed. Medications Medications Current Medications Acetaminophen (Acetaminophen 325 Mg Tablet) 650 mg PO Q6H PRN PRN Reason: Headache/Pain Mild Scale (1-3) Last Admin: 01/12/22 16:33 Dose: 650 mg Documented by: Al Hydroxide/Mg Hydroxide (Magnesium Hydrox/Alum Hydrox 30 Ml Oral.Susp) 30 ml PO Q6H PRN PRN Reason: Heartburn/Nausea Benzocaine (Throat Lozenge, Medicated Lozenge) 1 lozenge MUCOUS MEM Q2H PRN PRN Reason: Sore Throat Last Admin: 01/11/22 12:29 Dose: 1 lozenge Documented by: Buprenorphine/Naloxone (Buprenorphine/Naloxone 8/2 Mg Film) 1 film SUBLINGUAL TID [facility] Last Admin: 01/18/22 08:52 Dose: 1 film Documented by: Calcium Carbonate (Calcium Carbonate 750 Mg Tab.Chew) 750 mg PO Q4H PRN PRN Reason: acid reflux Last Admin: 01/07/22 22:46 Dose: 750 mg Documented by: Clonidine HCl (Clonidine Hcl 0.1 Mg Tablet) 0.1 mg PO TID [facility]; Protocol Last Admin: 01/18/22 08:52 Dose: 0.1 mg Documented by: Clotrimazole (Clotrimazole 1 % Cream 15 Gm Tube) 1 appl TOPICAL BID [facility]; Protocol Last Admin: 01/18/22 10:21 Dose: Not Given Documented by: Famotidine (Famotidine 20 Mg Tablet) 20 mg PO BID [facility] Last Admin: 01/18/22 08:52 Dose: 20 mg Documented by: Folic Acid (Folic Acid 1 Mg Tablet) 1 mg PO DAILY [facility] Last Admin: 01/18/22 08:52 Dose: 1 mg Documented by: Gabapentin (Gabapentin 600 Mg Tablet) 600 mg PO TID [facility] Last Admin: 01/18/22 08:52 Dose: 600 mg Documented by: Hydrocortisone (Hydrocortisone 1 % Ointment 28.35 Gm Tube) 1 appl TOPICAL BID PRN; Protocol PRN Reason: hand/forearm rash Last Admin: 01/16/22 15:59 Dose: 1 appl Documented by: Hydroxyzine HCl (Hydroxyzine Hcl 25 Mg Tablet) 25 mg PO Q6H PRN PRN Reason: Anxiety/sleep Last Admin: 01/17/22 11:19 Dose: 25 mg Documented by: Ibuprofen (Ibuprofen 800 Mg Tablet) 800 mg PO Q8H PRN PRN Reason: mod pain Last Admin: 01/15/22 00:53 Dose: 800 mg Documented by: [place] Carbonate ([place] Carbonate Er 300 Mg Tablet.Er) 300 mg PO BEDTIME [facility] Last Admin: 01/17/22 20:27 Dose: 300 mg Documented by: Loperamide HCl (Loperamide Hcl 2 Mg Capsule) 2 mg PO Q4H PRN PRN Reason: Loose Stool Lorazepam (Lorazepam 1 Mg Tablet) 1 mg PO Q6H PRN PRN Reason: Anxiety Last Admin: 01/18/22 08:58 Dose: 1 mg Documented by: Magnesium Hydroxide (Milk Of Magnesia 30 Ml Oral.Susp) 30 ml PO DAILY PRN PRN Reason: Constipation Last Admin: 01/09/22 20:14 Dose: 30 ml Documented by: Multi-Ingred Cream/Lotion/Oil/Oint (Mineral Oil/Petrolatum,White 106 Gm Tube) 1 appl TOPICAL TID PRN PRN Reason: dry skin Last Admin: 01/12/22 21:23 Dose: 1 appl Documented by: Multivitamins/Vitamin C (Multivitamin Tablet) 1 tab PO DAILY [facility] Last Admin: 01/18/22 08:52 Dose: 1 tab Documented by: Nicotine (Nicotine 21 Mg Patch.Td24) 21 mg TRANSDERMA DAILY [facility] Last Admin: 01/18/22 08:51 Dose: 21 mg Documented by: Nicotine Polacrilex (Nicotine Polacrilex 2 Mg Gum) 4 mg BUCCAL Q2H PRN PRN Reason: Nicotine Cravings Last Admin: 01/14/22 19:37 Dose: 4 mg Documented by: Ondansetron HCl (Ondansetron Odt 4 Mg Tab.Rapdis) 4 mg TRANSLINGU Q6H PRN PRN Reason: Nausea and Vomiting Last Admin: 01/15/22 20:34 Dose: 4 mg Documented by: Psyllium Hydrophilic Mucilloid (Psyllium Seed 3.4 Gm Powd.Pack) 3.4 gm PO DAILY [facility] Quetiapine Fumarate (Quetiapine Fumarate 100 Mg Tablet) 100 mg PO DAILY @0800,1500 [facility] Last Admin: 01/18/22 08:52 Dose: 100 mg Documented by: Quetiapine Fumarate (Quetiapine Fumarate 100 Mg Tablet) 100 mg PO Q6H PRN PRN Reason: Anxiety Last Admin: 01/17/22 20:40 Dose: 100 mg Documented by: Quetiapine Fumarate (Quetiapine Fumarate 200 Mg Tablet) 200 mg PO BEDTIME [facility] Last Admin: 01/17/22 20:28 Dose: 200 mg Documented by: Simethicone (Simethicone 80 Mg Tab.Chew) 80 mg PO TID PRN PRN Reason: bloating Thiamine HCl (Thiamine Hcl 100 Mg Tablet) 100 mg PO DAILY [facility] Last Admin: 01/18/22 08:52 Dose: 100 mg Documented by: Trazodone HCl (Trazodone Hcl 100 Mg Tablet) 200 mg PO BEDTIME [facility] Last Admin: 01/17/22 22:00 Dose: 200 mg Documented by: Allergies Allergies Allergy/AdvReac Type Severity Reaction Status Date / Time No Known Allergies Allergy Verified 12/06/21 09:33 Assessment & Plan Assessment & Plan (1) Alcohol use disorder, severe, dependence: Status: Acute Code(s): F10.20 - Alcohol dependence, uncomplicated (2) Cocaine use disorder: Status: Acute Code(s): F14.10 - Cocaine abuse, uncomplicated (3) Bipolar 2 disorder: Status: Acute Code(s): F31.81 - Bipolar II disorder Plan 1. trileptal was d/c as it could lower suboxone levels appear to have some withdrawal s/s 2. lamictal d/c due to new peripheral rash and lack of efficacy (although dose relatively low but due to long titration process will try different mood stabilizer) 3. continue lithium CR 300mg po qhs- monitor worsening of GI symptoms. 4. continue seroquel I spent minutes with the patient and/or on the patient floor today, greater than?50% of which was spent counseling/coordinating care. Reason for contiued inpatient stay Substantial Risk for: harm to self
[2022-01-18 14:01] LABS: Leukocytes Stool Qualitative FEW: < 2/OIF (NEGATIVE)
[2022-01-18 15:32] VITALS: BP 118/63; PULSE 98; O2SAT 97
[2022-01-18 20:18] VITALS: BP 112/61; PULSE 90; TEMP 36.3; O2SAT 99
[2022-01-18] MEDS: traZODone HCL 100 MG TABLET 200 MG PO (20:41)
[2022-01-18] MEDS: Lithium Carbonate ER 300 MG TABLET.ER PO (20:41)
[2022-01-18] MEDS: QUEtiapine Fumarate 200 MG TABLET PO (20:42)
[2022-01-18] MEDS: Loperamide HCl 2 MG CAPSULE PO (20:57)
[2022-01-18] MEDS: hydrOXYzine HCL 25 MG TABLET PO (20:57)
[2022-01-19] MEDS: Ibuprofen 800 MG TABLET PO (02:01)
[2022-01-19] MEDS: Ondansetron ODT 4 MG TAB.RAPDIS TRANSLINGU ×2 (02:02→13:34)
[2022-01-19] MEDS: LORazepam 1 MG TABLET PO ×3 (06:19→20:58)
[2022-01-19 09:29] VITALS: BP 107/58; PULSE 90; RESP 16; TEMP 36.3; O2SAT 96
[2022-01-19] MEDS: Nicotine 21 MG PATCH.TD24 TRANSDERMA (09:31)
[2022-01-19] MEDS: Thiamine HCL 100 MG TABLET PO (09:32)
[2022-01-19] MEDS: Buprenorphine/Naloxone 8/2 mg FILM 1 FILM SUBLINGUAL ×3 (09:32→20:51)
[2022-01-19] MEDS: Famotidine 20 MG TABLET PO ×2 (09:32→20:50)
[2022-01-19] MEDS: Gabapentin 600 MG TABLET PO ×3 (09:32→20:51)
[2022-01-19] MEDS: Folic Acid 1 MG TABLET PO (09:32)
[2022-01-19] MEDS: Multivitamin TABLET 1 TAB PO (09:32)
[2022-01-19] MEDS: cloNIDine HCL 0.1 MG TABLET PO ×3 (09:32→20:50)
[2022-01-19] MEDS: QUEtiapine Fumarate 100 MG TABLET PO ×3 (09:57→18:57)
--- NOTE | 2022-01-19 13:15 | P.PNPSI_ITS ---
Subjective Subjective Date of Service: 01/19/22 Reason For Visit: SI Interim History: pt found sleeping in her room. easily rousable to voice. c/o diarrhea and nausea/vomiting which are really affecting her mood. agreeable to GI recs (immodium QHS). zofran also available PRN. just started lithium. no complaints other than GI and dep/anx. per staff, no change in presentation. had one episode of severe agitation regarding not being allowed to drink coffee in one of the TV/interview rooms. chronic diarrhea and vomiting continue. poor sleep, med-compliant. Mental Status Exam Mental Status Exam Narrative: Appearance: casually groomed, fair hygiene, in NAD Behavior: cooperative Psychomotor: restless Speech: clear, with increased rate and amount of speech TP: largely linear and logical TC: no signs of psychosis, wanting to continue treatment, depressed Mood: extremely depressed Affect: dysphoric HI: none expressed SI: none expressed VH/AH: none expressed Delusions: none Insight/judgment: fair. Memory/cog: alert, oriented x 3. grossly intact to conversational testing. Diagnostics Vital Signs (24Hr): Vital Signs - 24 hr 01/18/22 15:32 01/18/22 20:18 01/19/22 09:29 Temperature 97.4 F 97.3 F Pulse Rate 98 90 90 Respiratory Rate 16 Blood Pressure 118/63 112/61 107/58 L Pulse Oximetry 97 99 96 BMI result Body Mass Index 26.4 Labs Results: 01/12/22 07:00 01/17/22 15:51 Labs: Laboratory Results - last 48 hr 01/17/22 01/18/22 01/18/22 15:51 11:00 11:08 Sodium 139 Potassium 4.2 Chloride 105 Carbon Dioxide 29 Anion Gap 9 L BUN 11 Creatinine 0.73 Estim Creat Clear Calc 103.2 Estimated GFR > 60 Random Glucose 88 Calcium 9.2 Total Bilirubin 0.2 AST 20 ALT 27 Alkaline Phosphatase 79 Total Protein 6.1 L Albumin 3.7 Stool Occult Blood NEGATIVE Stool Leukocytes, Qual FEW: < 2/OIF Imaging Radiology Impressions: ITS Impressions Abdomen/Pelvis CT 01/14/22 19:21 IMPRESSION: Partial small bowel obstruction. The transition in the left lower abdomen. Left nephrolithiasis Fleischner guidelines were followed. Medications Medications Current Medications Acetaminophen (Acetaminophen 325 Mg Tablet) 650 mg PO Q6H PRN PRN Reason: Headache/Pain Mild Scale (1-3) Last Admin: 01/12/22 16:33 Dose: 650 mg Documented by: Al Hydroxide/Mg Hydroxide (Magnesium Hydrox/Alum Hydrox 30 Ml Oral.Susp) 30 ml PO Q6H PRN PRN Reason: Heartburn/Nausea Benzocaine (Throat Lozenge, Medicated Lozenge) 1 lozenge MUCOUS MEM Q2H PRN PRN Reason: Sore Throat Last Admin: 01/11/22 12:29 Dose: 1 lozenge Documented by: Buprenorphine/Naloxone (Buprenorphine/Naloxone 8/2 Mg Film) 1 film SUBLINGUAL TID [facility] Last Admin: 01/19/22 09:32 Dose: 1 film Documented by: Calcium Carbonate (Calcium Carbonate 750 Mg Tab.Chew) 750 mg PO Q4H PRN PRN Reason: acid reflux Last Admin: 01/07/22 22:46 Dose: 750 mg Documented by: Clonidine HCl (Clonidine Hcl 0.1 Mg Tablet) 0.1 mg PO TID [facility]; Protocol Last Admin: 01/19/22 09:32 Dose: 0.1 mg Documented by: Clotrimazole (Clotrimazole 1 % Cream 15 Gm Tube) 1 appl TOPICAL BID [facility]; Protocol Last Admin: 01/19/22 09:33 Dose: Not Given Documented by: Famotidine (Famotidine 20 Mg Tablet) 20 mg PO BID [facility] Last Admin: 01/19/22 09:32 Dose: 20 mg Documented by: Folic Acid (Folic Acid 1 Mg Tablet) 1 mg PO DAILY [facility] Last Admin: 01/19/22 09:32 Dose: 1 mg Documented by: Gabapentin (Gabapentin 600 Mg Tablet) 600 mg PO TID [facility] Last Admin: 01/19/22 09:32 Dose: 600 mg Documented by: Hydrocortisone (Hydrocortisone 1 % Ointment 28.35 Gm Tube) 1 appl TOPICAL BID PRN; Protocol PRN Reason: hand/forearm rash Last Admin: 01/16/22 15:59 Dose: 1 appl Documented by: Hydroxyzine HCl (Hydroxyzine Hcl 25 Mg Tablet) 25 mg PO Q6H PRN PRN Reason: Anxiety/sleep Last Admin: 01/18/22 20:57 Dose: 25 mg Documented by: Ibuprofen (Ibuprofen 800 Mg Tablet) 800 mg PO Q8H PRN PRN Reason: mod pain Last Admin: 01/19/22 02:01 Dose: 800 mg Documented by: [place] Carbonate ([place] Carbonate Er 300 Mg Tablet.Er) 300 mg PO BEDTIME [facility] Last Admin: 01/18/22 20:41 Dose: 300 mg Documented by: Loperamide HCl (Loperamide Hcl 2 Mg Capsule) 2 mg PO Q4H PRN PRN Reason: Loose Stool Last Admin: 01/18/22 20:57 Dose: 2 mg Documented by: Lorazepam (Lorazepam 1 Mg Tablet) 1 mg PO Q6H PRN PRN Reason: Anxiety Last Admin: 01/19/22 06:19 Dose: 1 mg Documented by: Magnesium Hydroxide (Milk Of Magnesia 30 Ml Oral.Susp) 30 ml PO DAILY PRN PRN Reason: Constipation Last Admin: 01/09/22 20:14 Dose: 30 ml Documented by: Multi-Ingred Cream/Lotion/Oil/Oint (Mineral Oil/Petrolatum,White 106 Gm Tube) 1 appl TOPICAL TID PRN PRN Reason: dry skin Last Admin: 01/12/22 21:23 Dose: 1 appl Documented by: Multivitamins/Vitamin C (Multivitamin Tablet) 1 tab PO DAILY [facility] Last Admin: 01/19/22 09:32 Dose: 1 tab Documented by: Nicotine (Nicotine 21 Mg Patch.Td24) 21 mg TRANSDERMA DAILY [facility] Last Admin: 01/19/22 09:31 Dose: 21 mg Documented by: Nicotine Polacrilex (Nicotine Polacrilex 2 Mg Gum) 4 mg BUCCAL Q2H PRN PRN Reason: Nicotine Cravings Last Admin: 01/14/22 19:37 Dose: 4 mg Documented by: Ondansetron HCl (Ondansetron Odt 4 Mg Tab.Rapdis) 4 mg TRANSLINGU Q6H PRN PRN Reason: Nausea and Vomiting Last Admin: 01/19/22 02:02 Dose: 4 mg Documented by: Psyllium Hydrophilic Mucilloid (Psyllium Seed 3.4 Gm Powd.Pack) 3.4 gm PO DAILY [facility] Last Admin: 01/19/22 09:31 Dose: 3.4 gm Documented by: Quetiapine Fumarate (Quetiapine Fumarate 100 Mg Tablet) 100 mg PO DAILY@0 800,1500 [facility] Last Admin: 01/19/22 09:57 Dose: 100 mg Documented by: Quetiapine Fumarate (Quetiapine Fumarate 100 Mg Tablet) 100 mg PO Q6H PRN PRN Reason: Anxiety Last Admin: 01/17/22 20:40 Dose: 100 mg Documented by: Quetiapine Fumarate (Quetiapine Fumarate 200 Mg Tablet) 200 mg PO BEDTIME [facility] Last Admin: 01/18/22 20:42 Dose: 200 mg Documented by: Simethicone (Simethicone 80 Mg Tab.Chew) 80 mg PO TID PRN PRN Reason: bloating Thiamine HCl (Thiamine Hcl 100 Mg Tablet) 100 mg PO DAILY [facility] Last Admin: 01/19/22 09:32 Dose: 100 mg Documented by: Trazodone HCl (Trazodone Hcl 100 Mg Tablet) 200 mg PO BEDTIME [facility] Last Admin: 01/18/22 20:41 Dose: 200 mg Documented by: Allergies Allergies Allergy/AdvReac Type Severity Reaction Status Date / Time No Known Allergies Allergy Verified 12/06/21 09:33 Assessment & Plan Assessment & Plan (1) Diarrhea: Status: Acute Code(s): R19.7 - Diarrhea, unspecified (2) Abdominal pain: Status: Acute Code(s): R10.9 - Unspecified abdominal pain (3) Alcohol use disorder, severe, dependence: Status: Acute Code(s): F10.20 - Alcohol dependence, uncomplicated (4) Cocaine use disorder: Status: Acute Code(s): F14.10 - Cocaine abuse, uncomplicated (5) Bipolar 2 disorder: Status: Acute Code(s): F31.81 - Bipolar II disorder Plan 1. trileptal was d/c as it could lower suboxone levels appear to have some withdrawal s/s 2. lamictal d/c due to new peripheral rash and lack of efficacy (although dose relatively low but due to long titration process will try different mood stabilizer) 3. continue lithium CR 300mg po qhs-? monitor worsening of GI symptoms. 4. continue seroquel 5. stool studies and regimen as per GI rec. I spent minutes with the patient and/or on the patient floor today, greater than?50% of which was spent counseling/coordinating care. Reason for contiued inpatient stay Substantial Risk for: harm to self, inability to function and rapid decompensation
[2022-01-19 16:00] VITALS: BP 102/55; PULSE 85
[2022-01-19] MEDS: Simethicone 80 MG TAB.CHEW PO (16:54)
[2022-01-19] MEDS: Loperamide HCl 2 MG CAPSULE PO (18:54)
[2022-01-19 20:47] VITALS: BP 110/60; PULSE 98; RESP 16; TEMP 36.7; O2SAT 99
[2022-01-19] MEDS: Lithium Carbonate ER 300 MG TABLET.ER PO (20:50)
[2022-01-19] MEDS: traZODone HCL 100 MG TABLET 200 MG PO (20:50)
[2022-01-19] MEDS: QUEtiapine Fumarate 200 MG TABLET PO (20:51)
[2022-01-20] MEDS: hydrOXYzine HCL 25 MG TABLET PO (01:51)
[2022-01-20] MEDS: QUEtiapine Fumarate 100 MG TABLET PO ×4 (01:51→20:47)
[2022-01-20 09:39] VITALS: BP 123/55; PULSE 94; RESP 18; TEMP 36.2; O2SAT 98
[2022-01-20] MEDS: Gabapentin 600 MG TABLET PO ×3 (10:13→20:47)
[2022-01-20] MEDS: Famotidine 20 MG TABLET PO ×2 (10:13→20:48)
[2022-01-20] MEDS: Thiamine HCL 100 MG TABLET PO (10:13)
[2022-01-20] MEDS: Multivitamin TABLET 1 TAB PO (10:13)
[2022-01-20] MEDS: cloNIDine HCL 0.1 MG TABLET PO (10:14)
[2022-01-20] MEDS: Folic Acid 1 MG TABLET PO (10:14)
[2022-01-20] MEDS: LORazepam 1 MG TABLET PO ×2 (10:14→18:42)
[2022-01-20] MEDS: Nicotine 21 MG PATCH.TD24 TRANSDERMA (10:15)
[2022-01-20] MEDS: Buprenorphine/Naloxone 8/2 mg FILM 1 FILM SUBLINGUAL ×3 (10:16→20:46)
--- NOTE | 2022-01-20 14:44 | HO.PSYCHPN ---
Subjective Subjective Date of Service: 01/20/22 Reason For Visit: SI Interim History: c/o incontinence last darrian even with prophylactic immodium 2 mg at HS. dosing increased to 4 mg tonight. c/o strong anxiety, agrees to increase clonidine throughout the day. lactose-free diet order entered. lots of anxiety about her chronic diarrhea. per staff, eating indiscriminately. no other notable events or behaviors. no GI events or Sx were recorded in nursing report in the past 24H. Mental Status Exam Mental Status Exam Narrative: Appearance: casually groomed, fair hygiene, in NAD Behavior: cooperative Psychomotor: restless Speech: clear, with increased rate and amount of speech TP: largely linear and logical TC: no signs of psychosis, wanting to continue treatment, depressed Mood: anxious Affect: dysphoric, hyper-intense HI: none expressed SI: none expressed VH/AH: none expressed Delusions: none Insight/judgment: fair. Memory/cog: alert, oriented x 3. grossly intact to conversational testing. Diagnostics Vital Signs (24Hr): Vital Signs - 24 hr 01/19/22 16:00 01/19/22 20:47 01/20/22 09:39 Temperature 98.1 F 97.2 F Pulse Rate 85 98 94 Respiratory Rate 16 18 Blood Pressure 102/55 L 110/60 123/55 L Pulse Oximetry 99 98 BMI result Body Mass Index 26.4 Labs Results: 01/12/22 07:00 01/17/22 15:51 Imaging Radiology Impressions: ITS Impressions Abdomen/Pelvis CT 01/14/22 19:21 IMPRESSION: Partial small bowel obstruction. The transition in the left lower abdomen. Left nephrolithiasis Fleischner guidelines were followed. Medications Medications Current Medications Acetaminophen (Acetaminophen 325 Mg Tablet) 650 mg PO Q6H PRN PRN Reason: Headache/Pain Mild Scale (1-3) Last Admin: 01/12/22 16:33 Dose: 650 mg Documented by: Al Hydroxide/Mg Hydroxide (Magnesium Hydrox/Alum Hydrox 30 Ml Oral.Susp) 30 ml PO Q6H PRN PRN Reason: Heartburn/Nausea Benzocaine (Throat Lozenge, Medicated Lozenge) 1 lozenge MUCOUS MEM Q2H PRN PRN Reason: Sore Throat Last Admin: 01/11/22 12:29 Dose: 1 lozenge Documented by: Buprenorphine/Naloxone (Buprenorphine/Naloxone 8/2 Mg Film) 1 film SUBLINGUAL TID [facility] Last Admin: 01/20/22 10:16 Dose: 1 film Documented by: Calcium Carbonate (Calcium Carbonate 750 Mg Tab.Chew) 750 mg PO Q4H PRN PRN Reason: acid reflux Last Admin: 01/07/22 22:46 Dose: 750 mg Documented by: Clonidine HCl (Clonidine Hcl 0.1 Mg Tablet) 0.15 mg PO TID [facility]; Protocol Clotrimazole (Clotrimazole 1 % Cream 15 Gm Tube) 1 appl TOPICAL BID [facility]; Protocol Last Admin: 01/20/22 11:10 Dose: Not Given Documented by: Famotidine (Famotidine 20 Mg Tablet) 20 mg PO BID [facility] Last Admin: 01/20/22 10:13 Dose: 20 mg Documented by: Folic Acid (Folic Acid 1 Mg Tablet) 1 mg PO DAILY [facility] Last Admin: 01/20/22 10:14 Dose: 1 mg Documented by: Gabapentin (Gabapentin 600 Mg Tablet) 600 mg PO TID [facility] Last Admin: 01/20/22 10:13 Dose: 600 mg Documented by: Hydrocortisone (Hydrocortisone 1 % Ointment 28.35 Gm Tube) 1 appl TOPICAL BID PRN; Protocol PRN Reason: hand/forearm rash Last Admin: 01/16/22 15:59 Dose: 1 appl Documented by: Hydroxyzine HCl (Hydroxyzine Hcl 25 Mg Tablet) 25 mg PO Q6H PRN PRN Reason: Anxiety/sleep Last Admin: 01/20/22 01:51 Dose: 25 mg Documented by: Ibuprofen (Ibuprofen 800 Mg Tablet) 800 mg PO Q8H PRN PRN Reason: mod pain Last Admin: 01/19/22 02:01 Dose: 800 mg Documented by: [place] Carbonate ([place] Carbonate Er 300 Mg Tablet.Er) 300 mg PO BEDTIME [facility] Last Admin: 01/19/22 20:50 Dose: 300 mg Documented by: Loperamide HCl (Loperamide Hcl 2 Mg Capsule) 2 mg PO Q4H PRN PRN Reason: Loose Stool Last Admin: 01/19/22 18:54 Dose: 2 mg Documented by: Loperamide HCl (Loperamide Hcl 2 Mg Capsule) 4 mg PO BEDTIME [facility] Lorazepam (Lorazepam 1 Mg Tablet) 1 mg PO Q6H PRN PRN Reason: Anxiety Last Admin: 01/20/22 10:14 Dose: 1 mg Documented by: Magnesium Hydroxide (Milk Of Magnesia 30 Ml Oral.Susp) 30 ml PO DAILY PRN PRN Reason: Constipation Last Admin: 01/09/22 20:14 Dose: 30 ml Documented by: Multi-Ingred Cream/Lotion/Oil/Oint (Mineral Oil/Petrolatum,White 106 Gm Tube) 1 appl TOPICAL TID PRN PRN Reason: dry skin Last Admin: 01/12/22 21:23 Dose: 1 appl Documented by: Multivitamins/Vitamin C (Multivitamin Tablet) 1 tab PO DAILY [facility] Last Admin: 01/20/22 10:13 Dose: 1 tab Documented by: Nicotine (Nicotine 21 Mg Patch.Td24) 21 mg TRANSDERMA DAILY [facility] Last Admin: 01/20/22 10:15 Dose: 21 mg Documented by: Nicotine Polacrilex (Nicotine Polacrilex 2 Mg Gum) 4 mg BUCCAL Q2H PRN PRN Reason: Nicotine Cravings Last Admin: 01/14/22 19:37 Dose: 4 mg Documented by: Ondansetron HCl (Ondansetron Odt 4 Mg Tab.Rapdis) 4 mg TRANSLINGU Q6H PRN PRN Reason: Nausea and Vomiting Last Admin: 01/19/22 13:34 Dose: 4 mg Documented by: Psyllium Hydrophilic Mucilloid (Psyllium Seed 3.4 Gm Powd.Pack) 3.4 gm PO DAILY [facility] Last Admin: 01/20/22 11:10 Dose: Not Given Documented by: Quetiapine Fumarate (Quetiapine Fumarate 100 Mg Tablet) 100 mg PO DAILY@0800,1500 [facility] Last Admin: 01/20/22 10:14 Dose: 100 mg Documented by: Quetiapine Fumarate (Quetiapine Fumarate 100 Mg Tablet) 100 mg PO Q6H PRN PRN Reason: Anxiety Last Admin: 01/20/22 01:51 Dose: 100 mg Documented by: Quetiapine Fumarate (Quetiapine Fumarate 200 Mg Tablet) 200 mg PO BEDTIME [facility] Last Admin: 01/19/22 20:51 Dose: 200 mg Documented by: Simethicone (Simethicone 80 Mg Tab.Chew) 80 mg PO TID PRN PRN Reason: bloating Last Admin: 01/19/22 16:54 Dose: 80 mg Documented by: Thiamine HCl (Thiamine Hcl 100 Mg Tablet) 100 mg PO DAILY [facility] Last Admin: 01/20/22 10:13 Dose: 100 mg Documented by: Trazodone HCl (Trazodone Hcl 100 Mg Tablet) 200 mg PO BEDTIME [facility] Last Admin: 01/19/22 20:50 Dose: 200 mg Documented by: Allergies Allergies Allergy/AdvReac Type Severity Reaction Status Date / Time No Known Allergies Allergy Verified 12/06/21 09:33 Assessment & Plan Assessment & Plan (1) Diarrhea: Status: Acute Code(s): R19.7 - Diarrhea, unspecified (2) Abdominal pain: Status: Acute Code(s): R10.9 - Unspecified abdominal pain (3) Alcohol use disorder, severe, dependence: Status: Acute Code(s): F10.20 - Alcohol dependence, uncomplicated (4) Cocaine use disorder: Status: Acute Code(s): F14.10 - Cocaine abuse, uncomplicated (5) Bipolar 2 disorder: Status: Acute Code(s): F31.81 - Bipolar II disorder Plan 1. trileptal was d/c as it could lower suboxone levels appear to have some withdrawal s/s 2. lamictal d/c due to new peripheral rash and lack of efficacy (although dose relatively low but due to long titration process will try different mood stabilizer) 3. continue lithium CR 300mg po qhs-? monitor worsening of GI symptoms. 4. continue seroquel 5. stool studies and regimen as per GI rec. immodium 4 mg at HS per GI Rec. 6. clonidine 0.1 TID incrfeased to 0.15 TID as of 01/20. I spent minutes with the patient and/or on the patient floor today, greater than?50% of which was spent counseling/coordinating care. Reason for contiued inpatient stay Substantial Risk for: harm to self, inability to function and rapid decompensation
[2022-01-20 15:00] VITALS: BP 101/58; PULSE 105; RESP 18; O2SAT 97
[2022-01-20] MEDS: cloNIDine HCL 0.1 MG TABLET 0.15 MG PO ×2 (15:26→20:47)
[2022-01-20 20:00] VITALS: BP 108/62; PULSE 88; RESP 18; TEMP 36.7; O2SAT 98
[2022-01-20] MEDS: Loperamide HCl 2 MG CAPSULE 4 MG PO (20:47)
[2022-01-20] MEDS: QUEtiapine Fumarate 200 MG TABLET PO (20:47)
[2022-01-20] MEDS: Lithium Carbonate ER 300 MG TABLET.ER PO (20:47)
[2022-01-20] MEDS: traZODone HCL 100 MG TABLET 200 MG PO (22:59)
[2022-01-21] VITALS: RESP 16
[2022-01-21] MEDS: LORazepam 1 MG TABLET PO ×4 (03:36→21:55)
[2022-01-21 04:00] VITALS: RESP 18
[2022-01-21] MEDS: Nicotine 21 MG PATCH.TD24 TRANSDERMA (09:28)
[2022-01-21] MEDS: Gabapentin 600 MG TABLET PO ×3 (09:29→20:55)
[2022-01-21] MEDS: Thiamine HCL 100 MG TABLET PO (09:30)
[2022-01-21] MEDS: Multivitamin TABLET 1 TAB PO (09:30)
[2022-01-21] MEDS: QUEtiapine Fumarate 100 MG TABLET PO ×4 (09:30→20:55)
[2022-01-21] MEDS: Folic Acid 1 MG TABLET PO (09:30)
[2022-01-21] MEDS: Famotidine 20 MG TABLET PO ×2 (09:31→20:55)
[2022-01-21] MEDS: Buprenorphine/Naloxone 8/2 mg FILM 1 FILM SUBLINGUAL ×3 (09:31→20:55)
[2022-01-21] MEDS: cloNIDine HCL 0.1 MG TABLET 0.15 MG PO ×3 (09:38→20:55)
[2022-01-21 09:49] VITALS: BP 108/55; PULSE 91; RESP 16; TEMP 36.8; O2SAT 99
[2022-01-21 14:46] VITALS: BP 111/90; PULSE 99
[2022-01-21] MEDS: Nicotine Polacrilex 2 MG GUM 4 MG BUCCAL (15:57)
[2022-01-21 16:00] VITALS: BP 102/57; PULSE 90; RESP 16; TEMP 36.7; O2SAT 98
[2022-01-21] MEDS: Ondansetron ODT 4 MG TAB.RAPDIS TRANSLINGU (16:16)
[2022-01-21] MEDS: Loperamide HCl 2 MG CAPSULE PO (16:19)
[2022-01-21 20:00] VITALS: BP 104/60; PULSE 91; RESP 18; TEMP 36.7; O2SAT 98
--- NOTE | 2022-01-21 20:17 | HO.PSYCHPN ---
Subjective Subjective Date of Service: 01/21/22 Reason For Visit: SI Interim History: upset erine her breakfast order was messed up, she wasn't awakened by nursing staff at 0800 for meds and so got them late and has been feeling out of sorts all morning... feels it's been a bad morning and she is a bit agitated. she does report her diarrhea is improving, however. agreeable to have lithium and other labs for tomorrow morning, as she will have been on present dose of lithium for 5 nights as of tonight. per staff, saying if she is discharged to the street she will buy drugs and intentionally overdose as a means of protest. anx 06/09. no SI/HI. Mental Status Exam Mental Status Exam Narrative: Appearance: casually groomed, fair hygiene, in NAD Behavior: cooperative Psychomotor: restless Speech: clear, with increased rate and amount of speech TP: largely linear and logical TC: no signs of psychosis, wanting to continue treatment Mood: anxious, irritable Affect: dysphoric, hyper-intense HI: none expressed SI: none expressed VH/AH: none expressed Delusions: none Insight/judgment: fair. Memory/cog: alert, oriented x 3. grossly intact to conversational testing. Diagnostics Vital Signs (24Hr): Vital Signs - 24 hr 01/21/22 00:00 01/21/22 04:00 01/21/22 09:49 Temperature 98.2 F Pulse Rate 91 Respiratory Rate 16 18 16 Blood Pressure 108/55 L Pulse Oximetry 99 01/21/22 14:46 Temperature Pulse Rate 99 Respiratory Rate Blood Pressure 111/90 H Pulse Oximetry BMI result Body Mass Index 26.4 Labs Results: 01/12/22 07:00 01/17/22 15:51 Imaging Radiology Impressions: ITS Impressions Abdomen/Pelvis CT 01/14/22 19:21 IMPRESSION: Partial small bowel obstruction. The transition in the left lower abdomen. Left nephrolithiasis Fleischner guidelines were followed. Medications Medications Current Medications Acetaminophen (Acetaminophen 325 Mg Tablet) 650 mg PO Q6H PRN PRN Reason: Headache/Pain Mild Scale (1-3) Last Admin: 01/12/22 16:33 Dose: 650 mg Documented by: Al Hydroxide/Mg Hydroxide (Magnesium Hydrox/Alum Hydrox 30 Ml Oral.Susp) 30 ml PO Q6H PRN PRN Reason: Heartburn/Nausea Benzocaine (Throat Lozenge, Medicated Lozenge) 1 lozenge MUCOUS MEM Q2H PRN PRN Reason: Sore Throat Last Admin: 01/11/22 12:29 Dose: 1 lozenge Documented by: Buprenorphine/Naloxone (Buprenorphine/Naloxone 8/2 Mg Film) 1 film SUBLINGUAL TID [facility] Last Admin: 01/21/22 14:49 Dose: 1 film Documented by: Calcium Carbonate (Calcium Carbonate 750 Mg Tab.Chew) 750 mg PO Q4H PRN PRN Reason: acid reflux Last Admin: 01/07/22 22:46 Dose: 750 mg Documented by: Clonidine HCl (Clonidine Hcl 0.1 Mg Tablet) 0.15 mg PO TID [facility]; Protocol Last Admin: 01/21/22 14:49 Dose: 0.15 mg Documented by: Clotrimazole (Clotrimazole 1 % Cream 15 Gm Tube) 1 appl TOPICAL BID [facility]; Protocol Last Admin: 01/21/22 09:38 Dose: Not Given Documented by: Famotidine (Famotidine 20 Mg Tablet) 20 mg PO BID [facility] Last Admin: 01/21/22 09:31 Dose: 20 mg Documented by: Folic Acid (Folic Acid 1 Mg Tablet) 1 mg PO DAILY [facility] Last Admin: 01/21/22 09:30 Dose: 1 mg Documented by: Gabapentin (Gabapentin 600 Mg Tablet) 600 mg PO TID [facility] Last Admin: 01/21/22 14:49 Dose: 600 mg Documented by: Hydrocortisone (Hydrocortisone 1 % Ointment 28.35 Gm Tube) 1 appl TOPICAL BID PRN; Protocol PRN Reason: hand/forearm rash Last Admin: 01/16/22 15:59 Dose: 1 appl Documented by: Hydroxyzine HCl (Hydroxyzine Hcl 25 Mg Tablet) 25 mg PO Q6H PRN PRN Reason: Anxiety/sleep Last Admin: 01/20/22 01:51 Dose: 25 mg Documented by: Ibuprofen (Ibuprofen 800 Mg Tablet) 800 mg PO Q8H PRN PRN Reason: mod pain Last Admin: 01/19/22 02:01 Dose: 800 mg Documented by: [place] Carbonate ([place] Carbonate Er 300 Mg Tablet.Er) 300 mg PO BEDTIME [facility] Last Admin: 01/20/22 20:47 Dose: 300 mg Documented by: Loperamide HCl (Loperamide Hcl 2 Mg Capsule) 2 mg PO Q4H PRN PRN Reason: Loose Stool Last Admin: 01/21/22 16:19 Dose: 2 mg Documented by: Loperamide HCl (Loperamide Hcl 2 Mg Capsule) 4 mg PO BEDTIME [facility] Last Admin: 01/20/22 20:47 Dose: 4 mg Documented by: Lorazepam (Lorazepam 1 Mg Tablet) 1 mg PO Q6H PRN PRN Reason: Anxiety Last Admin: 01/21/22 15:35 Dose: 1 mg Documented by: Magnesium Hydroxide (Milk Of Magnesia 30 Ml Oral.Susp) 30 ml PO DAILY PRN PRN Reason: Constipation Last Admin: 01/09/22 20:14 Dose: 30 ml Documented by: Multi-Ingred Cream/Lotion/Oil/Oint (Mineral Oil/Petrolatum,White 106 Gm Tube) 1 appl TOPICAL TID PRN PRN Reason: dry skin Last Admin: 01/12/22 21:23 Dose: 1 appl Documented by: Multivitamins/Vitamin C (Multivitamin Tablet) 1 tab PO DAILY [facility] Last Admin: 01/21/22 09:30 Dose: 1 tab Documented by: Nicotine (Nicotine 21 Mg Patch.Td24) 21 mg TRANSDERMA DAILY [facility] Last Admin: 01/21/22 09:28 Dose: 21 mg Documented by: Nicotine Polacrilex (Nicotine Polacrilex 2 Mg Gum) 4 mg BUCCAL Q2H PRN PRN Reason: Nicotine Cravings Last Admin: 01/21/22 15:57 Dose: 4 mg Documented by: Ondansetron HCl (Ondansetron Odt 4 Mg Tab.Rapdis) 4 mg TRANSLINGU Q6H PRN PRN Reason: Nausea and Vomiting Last Admin: 01/21/22 16:16 Dose: 4 mg Documented by: Psyllium Hydrophilic Mucilloid (Psyllium Seed 3.4 Gm Powd.Pack) 3.4 gm PO DAILY [facility] Last Admin: 01/21/22 09:31 Dose: 3.4 gm Documented by: Quetiapine Fumarate (Quetiapine Fumarate 100 Mg Tablet) 100 mg PO DAILY@0800,1500 [facility] Last Admin: 01/21/22 15:35 Dose: 100 mg Documented by: Quetiapine Fumarate (Quetiapine Fumarate 100 Mg Tablet) 100 mg PO Q6H PRN PRN Reason: Anxiety Last Admin: 01/21/22 12:04 Dose: 100 mg Documented by: Quetiapine Fumarate (Quetiapine Fumarate 200 Mg Tablet) 200 mg PO BEDTIME [facility] Last Admin: 01/20/22 20:47 Dose: 200 mg Documented by: Simethicone (Simethicone 80 Mg Tab.Chew) 80 mg PO TID PRN PRN Reason: bloating Last Admin: 01/19/22 16:54 Dose: 80 mg Documented by: Thiamine HCl (Thiamine Hcl 100 Mg Tablet) 100 mg PO DAILY [facility] Last Admin: 01/21/22 09:30 Dose: 100 mg Documented by: Trazodone HCl (Trazodone Hcl 100 Mg Tablet) 200 mg PO BEDTIME [facility] Last Admin: 01/20/22 22:59 Dose: 200 mg Documented by: Allergies Allergies Allergy/AdvReac Type Severity Reaction Status Date / Time No Known Allergies Allergy Verified 12/06/21 09:33 Assessment & Plan Assessment & Plan (1) Diarrhea: Status: Acute Code(s): R19.7 - Diarrhea, unspecified (2) Abdominal pain: Status: Acute Code(s): R10.9 - Unspecified abdominal pain (3) Alcohol use disorder, severe, dependence: Status: Acute Code(s): F10.20 - Alcohol dependence, uncomplicated (4) Cocaine use disorder: Status: Acute Code(s): F14.10 - Cocaine abuse, uncomplicated (5) Bipolar 2 disorder: Status: Acute Code(s): F31.81 - Bipolar II disorder Plan 1. trileptal was d/c as it could lower suboxone levels appear to have some withdrawal s/s 2. lamictal d/c due to new peripheral rash and lack of efficacy (although dose relatively low but due to long titration process will try different mood stabilizer) 3. continue lithium CR 300mg po qhs-? monitor worsening of GI symptoms. 4. continue seroquel 5. stool studies and regimen as per GI rec. immodium 4 mg at HS per GI Rec. 6. clonidine 0.1 TID incrfeased to 0.15 TID as of 01/20. I spent minutes with the patient and/or on the patient floor today, greater than?50% of which was spent counseling/coordinating care. Reason for contiued inpatient stay Substantial Risk for: inability to function
[2022-01-21] MEDS: Loperamide HCl 2 MG CAPSULE 4 MG PO (20:55)
[2022-01-21] MEDS: Lithium Carbonate ER 300 MG TABLET.ER PO (20:55)
[2022-01-21] MEDS: QUEtiapine Fumarate 200 MG TABLET PO (20:55)
[2022-01-21] MEDS: hydrOXYzine HCL 25 MG TABLET PO (22:58)
[2022-01-21] MEDS: traZODone HCL 100 MG TABLET 200 MG PO (22:58)
[2022-01-22 08:00] VITALS: BP 107/64; PULSE 96; RESP 16; TEMP 36.5; O2SAT 100
[2022-01-22 08:17] LABS: Basophils Absolute Auto 0.1 X10*3/uL (0.0-0.2); Eosinophils Absolute Auto 1.9 X10*3/uL (0.0-0.4); Eosinophils Percent Auto 26.2 % (0-4); Hematocrit 33.8 % (37.0-47.0); Hemoglobin 11.2 g/dl (12.0-16.0); Imm Gran Abs Auto 0.05 X10*3/uL (0.00-0.03); Imm Gran Pct Auto 0.7 % (0.0-0.4); Lymphocytes Absolute Auto 2.7 X10*3/uL (1.2-4.9); Lymphocytes Percent Auto 37.6 % (20-40); MANUAL DIFF FLAG SCAN; Mean Corpuscular HGB Conc 33.1 g/dl (31.0-35.0); Mean Corpuscular Hemoglobin 30.4 pg (27.0-33.0); Mean Corpuscular Volume 91.8 fL (80.0-98.0); Mean Platelet Volume 9.6 fL (9.4-12.3); Monocytes Absolute Auto 0.6 X10*3/uL (0.1-1.2); Neutrophils Absolute Auto 1.9 x10*3/uL (2.0-8.3); Neutrophils Percent Auto 26.5 % (45-73); Platelet Count 222 X10*3/uL (160-400); Red Blood Count 3.68 X10*6/uL (4.20-5.50); Red Cell Distribution Width 13.2 % (11.0-16.0); SCAN SMEAR FLAG 1; White Blood Count 7.1 X10*3/uL (4.8-10.8)
[2022-01-22 08:24] LABS: Lithium 0.13 mmol/L (0.60-1.20)
[2022-01-22 08:30] LABS: Anion Gap 12 (12-20); Blood Urea Nitrogen 10 mg/dL (9-16); Calcium 9.2 mg/dL (8.4-10.2); Carbon Dioxide 23 mmol/L (22-29); Chloride 109 mmol/L (96-108); Creatinine Clr Calc Pharmacy 97.8; Estimated Glomerular Filt Rate > 60; Glucose Random 103 mg/dL (60-115); Potassium 4.1 mmol/L (3.3-5.1); Sodium 140 mmol/L (135-145)
[2022-01-22] MEDS: Nicotine 21 MG PATCH.TD24 TRANSDERMA (08:51)
[2022-01-22] MEDS: Buprenorphine/Naloxone 8/2 mg FILM 1 FILM SUBLINGUAL ×2 (08:51→15:11)
[2022-01-22] MEDS: LORazepam 1 MG TABLET PO ×2 (08:51→15:11)
[2022-01-22] MEDS: cloNIDine HCL 0.1 MG TABLET 0.15 MG PO ×2 (08:52→15:11)
[2022-01-22] MEDS: Gabapentin 600 MG TABLET PO ×2 (08:52→15:11)
[2022-01-22] MEDS: Thiamine HCL 100 MG TABLET PO (08:53)
[2022-01-22] MEDS: Folic Acid 1 MG TABLET PO (08:53)
[2022-01-22] MEDS: Multivitamin TABLET 1 TAB PO (08:53)
[2022-01-22] MEDS: QUEtiapine Fumarate 100 MG TABLET PO ×2 (08:53→15:11)
[2022-01-22] MEDS: Famotidine 20 MG TABLET PO (08:53)
[2022-01-22 09:07] LABS: SLIDE REVIEW VERIFIED
--- NOTE | 2022-01-22 09:19 | HO.PSYCHPN ---
Subjective Subjective Date of Service: 01/22/22 Reason For Visit: SI Subjective Notes: Conditional Voluntary Interim History: Pt reports episodes of irritability, arguing with staff at times due to not being able to have control remote to watch TV. She reports feeling worried about not having bed to go to at [facility]. Pt reports feeling better in mood but worried that if she relapses and goes back to life style she had using substances, she may not be able to take it. She denies SI/HI. We met with her data recovery planner and JESSE Nevarez to discuss the fact that she is in wait list for several [facility] programs but no bed has been confirmed. Pt would have to step down to women[facility] only skilled nursing, then transition to [facility]. Pt upset about this plan. Medication Compliance: Yes Side effects from medications: No Attending Groups: Yes Mental Status Exam Mental Status Exam Narrative: Appearance: casually groomed, fair hygiene, in NAD Behavior: cooperative Psychomotor: no agitation or retardation noted Speech: clear, regular rate/rhythm/volume, spontaneous TP: largely linear and logical TC: no signs of psychosis, wanting to continue treatment Mood: anxious Affect: dysphoric, hyper-intense HI: none expressed SI: none expressed VH/AH: none expressed Delusions: none Insight/judgment: fair. Memory/cog: alert, oriented x 3. grossly intact to conversational testing Diagnostics Vital Signs (24Hr): Vital Signs - 24 hr 01/21/22 14:46 01/21/22 16:00 01/21/22 20:00 Temperature 98.1 F 98.0 F Pulse Rate 99 90 91 Respiratory Rate 16 18 Blood Pressure 111/90 H 102/57 L 104/60 Pulse Oximetry 98 98 01/22/22 08:00 Temperature 97.7 F Pulse Rate 96 Respiratory Rate 16 Blood Pressure 107/64 Pulse Oximetry 100 BMI result Body Mass Index 26.4 Labs Results: 01/22/22 08:09 01/22/22 08:09 Labs: Laboratory Results - last 48 hr 01/22/22 01/22/22 01/22/22 08:09 08:09 08:09 WBC 7.1 RBC 3.68 L Hgb 11.2 L Hct 33.8 L MCV 91.8 MCH 30.4 MCHC 33.1 RDW 13.2 Plt Count 222 D MPV 9.6 Immature Gran % (Auto) 0.7 H Neut % (Auto) 26.5 L Lymph % (Auto) 37.6 [place] % (Auto) 8.0 Eos % (Auto) 26.2 H Baso % (Auto) 1.0 Lymph # (Auto) 2.7 [place] # (Auto) 0.6 Eos # (Auto) 1.9 H Baso # (Auto) 0.1 Abs Immat Gran (auto) 0.05 H Absolute Neuts (auto) 1.9 L Absolute Nucleated RBC 0.000 Nucleated RBC % (auto) 0.0 Smear Tech's Comments VERIFIED Sodium 140 Potassium 4.1 Chloride 109 H Carbon Dioxide 23 Anion Gap 12 BUN 10 Creatinine 0.77 Estim Creat Clear Calc 97.8 Estimated GFR > 60 Random Glucose 103 Calcium 9.2 [place] 0.13 L Imaging Radiology Impressions: ITS Impressions Abdomen/Pelvis CT 01/14/22 19:21 IMPRESSION: Partial small bowel obstruction. The transition in the left lower abdomen. Left nephrolithiasis Fleischner guidelines were followed. Medications Medications Current Medications Acetaminophen (Acetaminophen 325 Mg Tablet) 650 mg PO Q6H PRN PRN Reason: Headache/Pain Mild Scale (1-3) Last Admin: 01/12/22 16:33 Dose: 650 mg Documented by: Al Hydroxide/Mg Hydroxide (Magnesium Hydrox/Alum Hydrox 30 Ml Oral.Susp) 30 ml PO Q6H PRN PRN Reason: Heartburn/Nausea Benzocaine (Throat Lozenge, Medicated Lozenge) 1 lozenge MUCOUS MEM Q2H PRN PRN Reason: Sore Throat Last Admin: 01/11/22 12:29 Dose: 1 lozenge Documented by: Buprenorphine/Naloxone (Buprenorphine/Naloxone 8/2 Mg Film) 1 film SUBLINGUAL TID [facility] Last Admin: 01/22/22 08:51 Dose: 1 film Documented by: Calcium Carbonate (Calcium Carbonate 750 Mg Tab.Chew) 750 mg PO Q4H PRN PRN Reason: acid reflux Last Admin: 01/07/22 22:46 Dose: 750 mg Documented by: Clonidine HCl (Clonidine Hcl 0.1 Mg Tablet) 0.15 mg PO TID [facility]; Protocol Last Admin: 01/22/22 08:52 Dose: 0.15 mg Documented by: Clotrimazole (Clotrimazole 1 % Cream 15 Gm Tube) 1 appl TOPICAL BID [facility]; Protocol Last Admin: 01/22/22 08:55 Dose: Not Given Documented by: Famotidine (Famotidine 20 Mg Tablet) 20 mg PO BID [facility] Last Admin: 01/22/22 08:53 Dose: 20 mg Documented by: Folic Acid (Folic Acid 1 Mg Tablet) 1 mg PO DAILY [facility] Last Admin: 01/22/22 08:53 Dose: 1 mg Documented by: Gabapentin (Gabapentin 600 Mg Tablet) 600 mg PO TID [facility] Last Admin: 01/22/22 08:52 Dose: 600 mg Documented by: Hydrocortisone (Hydrocortisone 1 % Ointment 28.35 Gm Tube) 1 appl TOPICAL BID PRN; Protocol PRN Reason: hand/forearm rash Last Admin: 01/16/22 15:59 Dose: 1 appl Documented by: Hydroxyzine HCl (Hydroxyzine Hcl 25 Mg Tablet) 25 mg PO Q6H PRN PRN Reason: Anxiety/sleep Last Admin: 01/21/22 22:58 Dose: 25 mg Documented by: Ibuprofen (Ibuprofen 800 Mg Tablet) 800 mg PO Q8H PRN PRN Reason: mod pain Last Admin: 01/19/22 02:01 Dose: 800 mg Documented by: [place] Carbonate ([place] Carbonate Er 300 Mg Tablet.Er) 300 mg PO BEDTIME [facility] Last Admin: 01/21/22 20:55 Dose: 300 mg Documented by: Loperamide HCl (Loperamide Hcl 2 Mg Capsule) 2 mg PO Q4H PRN PRN Reason: Loose Stool Last Admin: 01/21/22 16:19 Dose: 2 mg Documented by: Loperamide HCl (Loperamide Hcl 2 Mg Capsule) 4 mg PO BEDTIME [facility] Last Admin: 01/21/22 20:55 Dose: 4 mg Documented by: Lorazepam (Lorazepam 1 Mg Tablet) 1 mg PO Q6H PRN PRN Reason: Anxiety Last Admin: 01/22/22 08:51 Dose: 1 mg Documented by: Magnesium Hydroxide (Milk Of Magnesia 30 Ml Oral.Susp) 30 ml PO DAILY PRN PRN Reason: Constipation Last Admin: 01/09/22 20:14 Dose: 30 ml Documented by: Multi-Ingred Cream/Lotion/Oil/Oint (Mineral Oil/Petrolatum,White 106 Gm Tube) 1 appl TOPICAL TID PRN PRN Reason: dry skin Last Admin: 01/12/22 21:23 Dose: 1 appl Documented by: Multivitamins/Vitamin C (Multivitamin Tablet) 1 tab PO DAILY [facility] Last Admin: 01/22/22 08:53 Dose: 1 tab Documented by: Nicotine (Nicotine 21 Mg Patch.Td24) 21 mg TRANSDERMA DAILY [facility] Last Admin: 01/22/22 08:51 Dose: 21 mg Documented by: Nicotine Polacrilex (Nicotine Polacrilex 2 Mg Gum) 4 mg BUCCAL Q2H PRN PRN Reason: Nicotine Cravings Last Admin: 01/21/22 15:57 Dose: 4 mg Documented by: Ondansetron HCl (Ondansetron Odt 4 Mg Tab.Rapdis) 4 mg TRANSLINGU Q6H PRN PRN Reason: Nausea and Vomiting Last Admin: 01/21/22 16:16 Dose: 4 mg Documented by: Psyllium Hydrophilic Mucilloid (Psyllium Seed 3.4 Gm Powd.Pack) 3.4 gm PO DAILY [facility] Last Admin: 01/22/22 08:51 Dose: 3.4 gm Documented by: Quetiapine Fumarate (Quetiapine Fumarate 100 Mg Tablet) 100 mg PO DAILY@0800,1500 [facility] Last Admin: 01/22/22 08:53 Dose: 100 mg Documented by: Quetiapine Fumarate (Quetiapine Fumarate 100 Mg Tablet) 100 mg PO Q6H PRN PRN Reason: Anxiety Last Admin: 01/21/22 20:55 Dose: 100 mg Documented by: Quetiapine Fumarate (Quetiapine Fumarate 200 Mg Tablet) 200 mg PO BEDTIME [facility] Last Admin: 01/21/22 20:55 Dose: 200 mg Documented by: Simethicone (Simethicone 80 Mg Tab.Chew) 80 mg PO TID PRN PRN Reason: bloating Last Admin: 01/19/22 16:54 Dose: 80 mg Documented by: Thiamine HCl (Thiamine Hcl 100 Mg Tablet) 100 mg PO DAILY [facility] Last Admin: 01/22/22 08:53 Dose: 100 mg Documented by: Trazodone HCl (Trazodone Hcl 100 Mg Tablet) 200 mg PO BEDTIME [facility] Last Admin: 01/21/22 22:58 Dose: 200 mg Documented by: Allergies Allergies Allergy/AdvReac Type Severity Reaction Status Date / Time No Known Allergies Allergy Verified 12/06/21 09:33 Assessment & Plan Assessment & Plan (1) Bipolar 2 disorder: Status: Acute Code(s): F31.81 - Bipolar II disorder (2) Diarrhea: Status: Acute Code(s): R19.7 - Diarrhea, unspecified (3) Abdominal pain: Status: Acute Code(s): R10.9 - Unspecified abdominal pain (4) Alcohol use disorder, severe, dependence: Status: Acute Code(s): F10.20 - Alcohol dependence, uncomplicated (5) Cocaine use disorder: Status: Acute Code(s): F14.10 - Cocaine abuse, uncomplicated Plan 1. trileptal was d/c as it could lower suboxone levels appear to have some withdrawal s/s 2. lamictal d/c due to new peripheral rash and lack of efficacy (although dose relatively low but due to long titration process will try different mood stabilizer) 3. continue lithium CR 300mg po qhs-? monitor worsening of GI symptoms. 4. continue seroquel 5. stool studies and regimen as per GI rec. immodium 4 mg at HS per GI Rec. 6. clonidine 0.1 TID incrfeased to 0.15 TID as of 01/20. I spent _25 minutes with the patient and/or on the patient floor today, greater than?50% of which was spent counseling/coordinating care. Reason for contiued inpatient stay Substantial Risk for: harm to self
[2022-01-22] MEDS: Naloxone HCl Nasal TAKE HOME 4 MG SPRAY NOSTRILALT (16:04)
--- NOTE | 2022-01-22 16:16 | PM.PSYDC ---
DS: Providers Provider Date of Service: 02/19/22 Date of admission: 01/07/22 17:00 Primary care physician: Unknown Physician Consults: 01/10/22 16:59 Consult to Hospitalist Routine Consulting Provider: Hospitalist Reason For Exam: acute RQ abdominal pain/ vomiting 01/14/22 22:04 Consult to General Surgery Stat Consulting Provider: Terence Garcia Reason for consultation: pt had pelvic/ abd CT, partial bowel obstruction 01/17/22 15:26 Consult to Gastroenterology Routine Consulting Provider: Viktor Stark Reason for consultation: loose stools/abdominal pain seen by surgery Has provider been notified: Yes DS: Diagnosis Discharge Diagnosis (1) Bipolar 2 disorder: Status: Acute (2) Diarrhea: Status: Deleted (3) Abdominal pain: Status: Deleted (4) Alcohol use disorder, severe, dependence: Status: Acute (5) Cocaine use disorder: Status: Acute DS: Medications Discharge Medications Home Medications: Home Medications Medication Instructions Recorded Confirmed buprenorphine 8 mg-naloxone 2 mg 1 strip SUBLINGUAL TID 01/04/22 01/04/22 sublingual film Previous Rx's Medication Instructions Recorded clonidine HCl 0.1 mg tablet 0.1 mg PO TID #45 tab 01/22/22 docusate sodium 100 mg capsule 100 mg PO BID PRN #60 cap 01/22/22 famotidine 20 mg tablet 20 mg PO BID #30 tab 01/22/22 folic acid 1 mg tablet 1 mg PO DAILY #30 tab 01/22/22 gabapentin 600 mg tablet 600 mg PO TID #90 tab 01/22/22 lithium carbonate 300 mg 300 mg PO BEDTIME #30 tab 01/22/22 tablet,extended release loperamide 2 mg capsule 4 mg PO BEDTIME #60 cap 01/22/22 multivitamin (Daily-Deep) 1 tab PO DAILY #30 tab 01/22/22 nicotine 21 mg/24 hr daily 21 mg TRANSDERMAL DAILY #30 ea 01/22/22 transdermal patch psyllium husk (aspartame) 3.4 gram 3.4 g PO DAILY #30 ea 01/22/22 oral powder packet (Metamucil Fiber Singles) quetiapine 100 mg tablet 100 mg PO DAILY@0800,1500 #60 tab 01/22/22 quetiapine 100 mg tablet 100 mg PO Q6H PRN #30 tab 01/22/22 quetiapine 200 mg tablet 200 mg PO BEDTIME #30 tab 01/22/22 thiamine mononitrate (vit B1) 100 100 mg PO DAILY #30 tab 01/22/22 mg tablet trazodone 100 mg tablet 200 mg PO BEDTIME #60 tab 01/22/22 Mental Status Exam Mental Status Exam Narrative: Appearance: casually groomed, fair hygiene, in NAD Behavior: cooperative Psychomotor: no agitation or retardation noted Speech: clear, regular rate/rhythm/volume, spontaneous TP: largely linear and logical TC: no signs of psychosis, wanting to continue treatment Mood: anxious Affect: less dysphoric, HI: none expressed SI: none expressed VH/AH: none expressed Delusions: none Insight/judgment: fair. Memory/cog: alert, oriented x 3. grossly intact to conversational testing Data Data Completed and Pending Completed studies during hospitalization [Text1]: 01/17/22 01/18/22 01/18/22 15:51 11:00 11:00 WBC RBC Hgb Hct MCV MCH MCHC RDW Plt Count MPV Immature Gran % (Auto) Neut % (Auto) Lymph % (Auto) [place] % (Auto) Eos % (Auto) Baso % (Auto) Lymph # (Auto) [place] # (Auto) Eos # (Auto) Baso # (Auto) Abs Immat Gran (auto) Absolute Neuts (auto) Absolute Nucleated RBC Nucleated RBC % (auto) Smear Tech's Comments Sodium 139 Potassium 4.2 Chloride 105 Carbon Dioxide 29 Anion Gap 9 L BUN 11 Creatinine 0.73 Estim Creat Clear Calc 103.2 Estimated GFR > 60 Random Glucose 88 Calcium 9.2 Total Bilirubin 0.2 AST 20 ALT 27 Alkaline Phosphatase 79 Total Protein 6.1 L Albumin 3.7 Stool Fat, Qual Pending Stool Occult Blood Stool Leukocytes, Qual Stool Pancreat Elastase Pending Wesley 01/18/22 01/18/22 01/22/22 11:00 11:08 08:09 WBC 7.1 RBC 3.68 L Hgb 11.2 L Hct 33.8 L MCV 91.8 MCH 30.4 MCHC 33.1 RDW 13.2 Plt Count 222 D MPV 9.6 Immature Gran % (Auto) 0.7 H Neut % (Auto) 26.5 L Lymph % (Auto) 37.6 [place] % (Auto) 8.0 Eos % (Auto) 26.2 H Baso % (Auto) 1.0 Lymph # (Auto) 2.7 [place] # (Auto) 0.6 Eos # (Auto) 1.9 H Baso # (Auto) 0.1 Abs Immat Gran (auto) 0.05 H Absolute Neuts (auto) 1.9 L Absolute Nucleated RBC 0.000 Nucleated RBC % (auto) 0.0 Smear Tech's Comments VERIFIED Sodium Potassium Chloride Carbon Dioxide Anion Gap BUN Creatinine Estim Creat Clear Calc Estimated GFR Random Glucose Calcium Total Bilirubin AST ALT Alkaline Phosphatase Total Protein Albumin Stool Fat, Qual Stool Occult Blood NEGATIVE Stool Leukocytes, Qual FEW: < 2/OIF Stool Pancreat Elastase [place] 01/22/22 01/22/22 08:09 08:09 WBC RBC Hgb Hct MCV MCH MCHC RDW Plt Count MPV Immature Gran % (Auto) Neut % (Auto) Lymph % (Auto) [place] % (Auto) Eos % (Auto) Baso % (Auto) Lymph # (Auto) [place] # (Auto) Eos # (Auto) Baso # (Auto) Abs Immat Gran (auto) Absolute Neuts (auto) Absolute Nucleated RBC Nucleated RBC % (auto) Smear Tech's Comments Sodium 140 Potassium 4.1 Chloride 109 H Carbon Dioxide 23 Anion Gap 12 BUN 10 Creatinine 0.77 Estim Creat Clear Calc 97.8 Estimated GFR > 60 Random Glucose 103 Calcium 9.2 Total Bilirubin AST ALT Alkaline Phosphatase Total Protein Albumin Stool Fat, Qual Stool Occult Blood Stool Leukocytes, Qual Stool Pancreat Elastase [place] 0.13 L 01/18/22 11:00 Stool Stool Culture - Final 01/11/22 Unknown Urine clean catch - Urine nunn top Urine Culture - Final No growth. Imaging Diagnostic Imaging Impressions Abdomen/Pelvis CT 01/14/22 19:21 IMPRESSION: Partial small bowel obstruction. The transition in the left lower abdomen. Left nephrolithiasis Fleischner guidelines were followed. DS: Summary Hospital Course Hospital Course: Subjective Notes: Conditional Voluntary Narrative: Ms. Quiroz is a 31 year-old woman with hx of opioid, cocaine use disorder as well as Bipolar type 2 disorder who self presented to [facility] on 01/05/22 reporting suicidal ideation without plan. In the ED, utox was positive for fentanyl, cocaine and THC. Ms. Quiroz was last discharged from on 12/05/2021 after treatment for similar presentation. On the unit, Ms. Quiroz reports that she returned to her now ex boyfriend house. She apparently quickly relapsed on fentanyl, cocaine and was drinking vodka occasionally. She reports her ex boyfriend also using substances. She reports she did not follow up with OP appointments set up for her last admission. Pt endorses feeling anxious, depressed mood, hopeless, wanting to continue treatment for both substance use and psychiatric. She continues to report passive suicidal ideation but denies any plan or intent. She reports not having control over her addiction but at the same time minimizes her substance use stating that her main concern is psychiatric not substance use as I'm not using right now. She denies VH/AH. No delusional content reported. she reports she can't return to exboyfriend's house and hopes to get into a residential substance use treatment program, which she had declined last admission. Past Psychiatric History: Inpatient psych admissions:? M3- 12/05/2021;? 06/28/21 at [facility]. Pt was at [facility] for two weeks, approximately four yrs ago. -Hx of presenting to [facility], last seen 06/28/21 after self presenting to the [facility] reporting that two days prior she overdosed on one of her friends Seroquel and Zoloft to kill herself. She was assessed on 03/01/21 at the [facility] ED for SI and substance use, disposition was detox. Medical Evaluation Reviewed: Yes CBC- low RBC (3.88) otherwise unremarkable. CMP- wnl including AST/ALT, UA- wnl, EKG normal sinus, Qtc 392ms. HOSPITAL COURSE On the unit, Ms. Quiroz was admitted on CV and placed on 15 minutes checks for safety. Pt initially presented as dysphoric, distressed by opioid withdrawal symptoms. Pt expressed being tired of using substance and worried about accidental OD on opioids. We discussed risks, benefits and alternative treatment options. Pt agreed to continue seroquel for mood stabilization-usually pt presents as dysphoric and anxious and this medication seemed to help with that based on previous admission. Pt was started on lithium for mood/depression. She was continued clonidine. She was also continued suboxone and followed by addition team while inpatient. Pt does diaphoresis with suboxone. Pt was connected with acid recovery operator who was able to advocate for pt and secure bed at [facility] for residential substance use treatment. On day of discharge, pt was picked up by acid recovery operator who transported pt to [facility] program. There were no incidences of disruptive behaviors nor use of restraints. Time spent discussing smoking cessation with patient: 3 to 10 minutes Status at Discharge Cognitive/behavioral status at discharge: Pt brighter, no SI/HI. No signs of responding to internal stimuli. No signs of aggression towards self or others. Pt reports feeling anxious, worried about relapsing. Given narcan on discharge. Future oriented in that she is looking forward to continue treatment. Pt sleeping and eating well. Functional status at discharge: independent ambulation Overall status at discharge: patient is progressing back to baseline Time Spent with Patient Time attestation: Total time spent providing and/or coordinating discharge services: Discharge Plan Discharge Patient Disposition: Home, Self-Care Discharge Diagnosis: Bipolar type 2 disorder Opioid Use Disorder Referrals: Santa Silvestre ([facility] Parish Worker) [Other] - 1 Week (Please call Santa upon your discharge to connect with her. You can utilize the number above or this number as well ([phone]).) [facility] [Other] - 02/07/22 9:00 am [facility] [Physician] - 2 days [facility] [Physician] - 1 Week Discharge Medications: Discontinued buprenorphine-naloxone 8-2 mg film 1 strip sublingual TID 0RF multivitamin [Daily Vitamin] Tablet 1 tab PO DAILY 0RF clonidine HCl 0.1 mg Tablet 0.1 mg PO TID 0RF gabapentin 600 mg Tablet 600 mg PO TID 0RF trazodone 50 mg Tablet 50 mg PO BEDTIME PRN (Reason: Insomnia) 0RF quetiapine 200 mg Tablet 200 mg PO BEDTIME 0RF thiamine HCl (vitamin B1) 100 mg Tablet 100 mg PO DAILY 0RF quetiapine 100 mg Tablet 100 mg PO Q6H PRN (Reason: Anxiety) 0RF quetiapine 100 mg Tablet 100 mg PO DAILY@0800,1500 0RF lamotrigine 25 mg Tablet 25 mg PO BEDTIME 0RF propranolol 10 mg Tablet 20 mg PO TID 0RF famotidine 20 mg Tablet 20 mg PO BID 0RF docusate sodium 100 mg Capsule 100 mg PO BID PRN (Reason: Constipation) 0RF folic acid 1 mg Tablet 1 mg PO DAILY 0RF No Action buprenorphine-naloxone 8-2 mg film 2 strip sublingual QAM 0RF Discharge Orders: Discharge Order (Routine); Ordered 01/22/22 Ordered By: Vicki Cisse Diet: regular diet Activity on Discharge: As tolerated Stand Alone Forms: Patient Portal Discharge page, Community Support, Substance Abuse Outpt Detox Activity Restrictions/Additional Instructions: Accepted to a dual diagnosis unit. You be transferred from the emergency department Do not do drugs or alcohol If you have thoughts of hurting self or others please return to the ED Care Plan Goals: maintain mood no si/hi harm reduction- narcan given Health Concerns: follow up with pcp Plan of Treatment: take meds as prescribed Assessment: no si/hi. future oriented. going to [facility] Patient Instructions: Bipolar Disorder (DC), Abuse of Alcohol (DC), Polysubstance Abuse (ED) Discharge Date/Time: 01/22/22 16:25
[2022-01-22 20:52] LABS: Fecal Fat Qualitative Abnormal (Normal)
[2022-01-24 22:07] LABS: Pancreatic Elastase-1 88 mcg/g
== END 2022-01-22 16:25 | disposition home or self-care (01) | DRG 753 ==
LOC: HO.ED 01-07 15:28 → HO.PADLT16 01-07 17:36
PROVIDERS: Internal Medicine Gastroenterology; Physician Assistant; Physician Assistant Medical; Psychiatry & Neurology Psychiatry; Admitting Provider Psychiatry & Neurology Psychiatry; Emergency Provider Emergency Medicine; Visit Provider Social Worker
DX: F31.81 Bipolar II disorder (principal); D69.6 Thrombocytopenia, unspecified; R45.851 Suicidal ideations; R19.7 Diarrhea, unspecified; F14.10 Cocaine abuse, uncomplicated; R10.9 Unspecified abdominal pain; F10.20 Alcohol dependence, uncomplicated; F11.20 Opioid dependence, uncomplicated; Z20.822 Contact with and (suspected) exposure to COVID-19; Z79.899 Other long term (current) drug therapy
CPT/HCPCS: 36415; 74176; 80048; 80053; 80076; 80178; 80307; 81001; 81003; 81025; 82077; 82272; 82656; 82705; 83690; 83735; 85025; 87045; 87046; 87086; 87493; 87635; 89055; 93005; 99285

== ENCOUNTER → 2022-01-30 10:52 | Outpatient (BNVA) | payer OTHER, SELFPAY | PROVIDERS: Visit Provider Internal Medicine | DX: Z51.81 Encounter for therapeutic drug level monitoring (principal); F17.210 Nicotine dependence, cigarettes, uncomplicated; F10.20 Alcohol dependence, uncomplicated; F14.20 Cocaine dependence, uncomplicated; F11.20 Opioid dependence, uncomplicated | CPT/HCPCS: 80305; 99202; 99212 ==

== ENCOUNTER 2022-02-16 16:11 | Inpatient (IN) | payer OTHER, SELFPAY ==
--- NOTE | 2022-02-16 | ECG_ITS ---
Test Reason : MEDICAL CLEARANCE Blood Pressure : / mmHG Vent. Rate : 075 BPM Atrial Rate : 075 BPM P-R Int : 136 ms QRS Dur : 072 ms QT Int : 392 ms P-R-T Axes : 044 068 053 degrees QTc Int : 437 ms Artifact in tracing Normal sinus rhythm Likely normal EKG When compared with ECG of 07-JAN-2022 15:32, QT has lengthened Referred By: Brooklyn Pringle Electronically Signed By:TALYA KAN
[2022-02-16 16:13] VITALS: BP 115/86; PULSE 91; RESP 18; TEMP 35.7; O2SAT 96; BMI 24.7
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
[2022-02-16] MEDS: LORazepam 1 MG TABLET 2 MG PO (16:44)
[2022-02-16 16:53] LABS: UPreg QC Valid YES; Urine Pregnancy NEGATIVE (NEGATIVE)
[2022-02-16 17:07] LABS: Amphetamine Screen Urine Not Detected (Not Detect); Barbiturates, Urine Not Detected (Not Detect); Benzodiazepines Screen Urine Not Detected (Not Detect); Cannabinoid Screen Urine Not Detected (Not Detect); Cocaine Screen Urine POSITIVE (Not Detect); Fentanyl, urine POSITIVE (Not Detect); Opiate Screen Urine POSITIVE (Not Detect); Phencyclidine Screen Urine Not Detected (Not Detect)
[2022-02-16 17:09] LABS: COVID-19 Test Negative (Negative); IDNOW Serial# 16C4AD1C
[2022-02-16 17:09] LABS: MANUAL DIFF FLAG NO
[2022-02-16 17:11] LABS: Basophils Percent Auto 0.2 % (0-2); Eosinophils Absolute Auto 0.1 X10*3/uL (0.0-0.4); Eosinophils Percent Auto 1.6 % (0-4); Hematocrit 35.5 % (37.0-47.0); Hemoglobin 11.7 g/dl (12.0-16.0); Imm Gran Abs Auto 0.01 X10*3/uL (0.00-0.03); Imm Gran Pct Auto 0.2 % (0.0-0.4); Lymphocytes Absolute Auto 1.2 X10*3/uL (1.2-4.9); Lymphocytes Percent Auto 21.4 % (20-40); Mean Corpuscular Volume 94.2 fL (80.0-98.0); Mean Platelet Volume 9.7 fL (9.4-12.3); Monocytes Absolute Auto 0.2 X10*3/uL (0.1-1.2); Neutrophils Percent Auto 72.6 % (45-73); Platelet Count 201 X10*3/uL (160-400); Red Blood Count 3.77 X10*6/uL (4.20-5.50); Red Cell Distribution Width 13.6 % (11.0-16.0); White Blood Count 5.5 X10*3/uL (4.8-10.8)
[2022-02-16 17:24] LABS: Lithium < 0.10 mmol/L (0.60-1.20)
[2022-02-16 17:28] LABS: Ethanol 22 mg/dL
[2022-02-16 17:43] LABS: Alanine Aminotransferase 174 U/L (0-31); Albumin Level 4.5 g/dL (3.5-5.0); Alkaline Phosphatase 100 U/L (39-117); Anion Gap 17 (12-20); Aspartate Amino Transferase 140 U/L (5-31); Bilirubin Direct 0.4 mg/dL (0.0-0.5); Blood Urea Nitrogen 9 mg/dL (9-16); Calcium 9.9 mg/dL (8.4-10.2); Carbon Dioxide 22 mmol/L (22-29); Chloride 105 mmol/L (96-108); Creatinine Clr Calc Pharmacy 91.4; Estimated Glomerular Filt Rate > 60; Glucose Random 88 mg/dL (60-115); Potassium 3.7 mmol/L (3.3-5.1); Sodium 140 mmol/L (135-145); Total Protein 7.5 g/dL (6.5-8.0)
--- NOTE | 2022-02-16 18:00 | PC.NURSE ---
Patient was referred to [facility]
[2022-02-17 00:58] VITALS: BP 103/60; PULSE 74; RESP 18; TEMP 37.1; O2SAT 97
--- NOTE | 2022-02-17 05:42 | PC.NURSE ---
Patient slept through the night, no distress observed/reported, asymptomatic of withdrawal at this time, med rec completed, patient had been not taking her medication, lithium level < 0.10, VSS, per [facility] patient will be seen in the morning at priority level, behavior appropriate and non concerning, will continue to monitor.
--- NOTE | 2022-02-17 08:39 | PC.NURSE ---
Crisis here to see patient. Reviewed med list and social circumstances. Patient has been sleeping, no signs of withdrawal. Awaiting [facility] assessment and plan.
[2022-02-17] MEDS: Buprenorphine/Naloxone 8/2 mg FILM 2 FILM SUBLINGUAL (09:48)
[2022-02-17] MEDS: LORazepam 1 MG TABLET 2 MG PO ×2 (10:08→17:30)
--- NOTE | 2022-02-17 17:43 | MHC.RECOVSUP ---
Recovery Support note: Patient is a 31 year old Norwegian speaking female who presented to [facility] ED due to SI. Patient was evaluated by [facility] and is currently awaiting an inpatient psychiatric bed. This race and sports book writer met with patient to discuss recovery and withdrawal symptoms. Patient has restarted Suboxone and reports she is doing well with no withdrawal symptoms. Patient expressed frustration regarding her previous discharge from the psych unit, stating they kicked me out like a dog. Patient reports she is not doing well mentally and that she uses to cope. Patient reports she cannot work on her recovery until her mental health concerns are addressed. Discussed plan with patient for psychiatric admission and she is agreeable.
[2022-02-18] MEDS: LORazepam 1 MG TABLET 2 MG PO ×4 (00:39→23:43)
[2022-02-18 01:31] VITALS: BP 108/63; PULSE 90; RESP 16; TEMP 37.1; O2SAT 100
--- NOTE | 2022-02-18 06:21 | PC.NURSE ---
Patient slept well, up once for bathroom use, asked for her regular medication which she is off for over a month, but patient claims she has been taking her medication on time which is contrary to pharmacy claim history. Patient was observed diaphoretic/PRN Ativan 2 mg administered at 0039 with + effect, disposition per [facility] is voluntary inpatient bed search, will continue to monitor.
--- NOTE | 2022-02-18 07:27 | PC.NURSE ---
patient appears to remain asleep at present respirations are even and unlabored patient appears in no distress
[2022-02-18 08:33] VITALS: BP 91/42; PULSE 78; RESP 17; TEMP 37.1; O2SAT 97
[2022-02-18] MEDS: Buprenorphine/Naloxone 8/2 mg FILM 2 FILM SUBLINGUAL (09:43)
[2022-02-18] MEDS: Gabapentin 600 MG TABLET PO ×3 (09:48→22:05)
[2022-02-18 13:07] LABS: COVID-19 Test Negative (Negative)
--- NOTE | 2022-02-18 14:39 | PC.NURSE ---
Patient was alert and cooperative, verbalized understanding of admission to escorted to unit via wheelchair with staff and security along with belongings and paperwork.
[2022-02-18 14:43] LABS: Lithium < 0.10 mmol/L (0.60-1.20)
[2022-02-18] MEDS: cloNIDine HCL 0.1 MG TABLET PO (16:09)
[2022-02-18] MEDS: Nicotine 21 MG PATCH.TD24 TRANSDERMA (16:10)
[2022-02-18 18:00] VITALS: BP 109/63; PULSE 92; TEMP 36.8; O2SAT 99
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
[2022-02-18] MEDS: OXcarbazepine 300 MG TABLET PO (22:05)
[2022-02-18] MEDS: QUEtiapine Fumarate 300 MG TABLET PO (22:05)
[2022-02-18] MEDS: Ondansetron ODT 8 MG TAB.RAPDIS TRANSLINGU (22:19)
--- NOTE | 2022-02-18 23:59 | PC.NURSE ---
Patient c/o severe anxiety, headache and nausea and vomiting. This song writer spoke with Vicki Cisse NP aerodynamic consultant and relayed the information. Orders obtained for a one time Lorazepam 2 mg now. She adjusted the prn Lorazepam based on CIWA scores and the time changed from q 8 hours to q 4 hours to correspond with CIWA assessments.
--- NOTE | 2022-02-19 01:51 | PC.ADMIT ---
Patient is a single 31 year-old single, Lithuanian speaking female admitted to [facility] as a CV admission at 1440 02/18/22. Patient was medically cleared in the [facility], evaluated by [facility] and deemed in need of IPLOC secondary to substance use, SI with command auditory hallucinations and self-harming behaviors. Patient has a diagnosis of Major Depressive Disorder Recurrent episode with Psychotic features, Alcohol use disorder, sedative, hypnotic or anxiolytic use disorder; stimulant use disorder moderate. Patient has a history of detox admissions as well as a recent admission to [facility]. Patient was cooperative with the admission process and signed all legals and answered all of the admission questions. She said she has been trying to receive alf psychiatric help because she knows she has an addiction problem and mental health issues. Patient stated she has been getting worse the last few weeks and has been burning herself with cigarettes and running in traffic. Patient said that she has command auditory hallucinations to kill herself and explained that she thinks the voice is either her mother (who is ) or her own voice. Patient tearful and expressed her frustration with her life. She said that her boyfriend drinks alcohol and uses other drugs around her but makes comments to her about her substance use. Patient said she does not believe that Lester is the proper drug for her and said the drug did not help her at all. Patient will be on 15 minute safety checks with CIWA and COWS every 4 hours while awake. According to Ronda Garcia NP, patient has had a history of a GI work up when she was on [facility]. Patient did state that she was having nausea and vomiting as well as chills, headache and AH. Patient will be monitored as ordered.
[2022-02-19 06:00] VITALS: BP 103/55; PULSE 85; RESP 16; TEMP 36.8; O2SAT 94
[2022-02-19 08:56] LABS: Estimated Average Glucose 97 mg/dL
[2022-02-19 09:32] LABS: Alanine Aminotransferase 105 U/L (0-31); Alkaline Phosphatase 89 U/L (39-117); Anion Gap 15 (12-20); Aspartate Amino Transferase 55 U/L (5-31); Bilirubin Total 0.4 mg/dL (0.0-1.0); Calcium 9.5 mg/dL (8.4-10.2); Carbon Dioxide 22 mmol/L (22-29); Chloride 106 mmol/L (96-108); Cholesterol 139 mg/dL; Creatinine Clr Calc Pharmacy 90.3; Estimated Glomerular Filt Rate > 60; Glucose Random 100 mg/dL (60-115); HDL Cholesterol 54 mg/dL; LDL Cholesterol Calculated 58 mg/dl; Magnesium 2.3 mg/dL (1.6-2.6); Sodium 138 mmol/L (135-145); Total Protein 6.6 g/dL (6.5-8.0); Triglycerides 138 mg/dL
[2022-02-19 09:40] VITALS: PULSE 85
[2022-02-19] MEDS: Gabapentin 600 MG TABLET PO ×3 (09:47→19:50)
[2022-02-19] MEDS: Nicotine 21 MG PATCH.TD24 TRANSDERMA (09:47)
[2022-02-19] MEDS: OXcarbazepine 300 MG TABLET PO ×2 (09:47→19:50)
[2022-02-19] MEDS: Thiamine HCL 100 MG TABLET PO (09:47)
[2022-02-19] MEDS: Folic Acid 1 MG TABLET PO (09:48)
[2022-02-19] MEDS: Famotidine 20 MG TABLET PO (09:48)
[2022-02-19] MEDS: Multivitamin TABLET 1 TAB PO (09:48)
[2022-02-19 09:51] LABS: Free T4 (Free Thyroxine) 1.19 ng/dL (0.71-1.85); Thyroid Stimulating Hormone 1.39 uIU/mL (0.32-4.0)
[2022-02-19 09:59] LABS: Folate 17.4 ng/mL (> or = 4.0); Vitamin B12 377 pg/mL (200-900)
[2022-02-19 10:20] LABS: Blood Urea Nitrogen 15 mg/dL (9-16); Potassium 4.5 mmol/L (3.3-5.1)
[2022-02-19] MEDS: Buprenorphine/Naloxone 8/2 mg FILM 2 FILM SUBLINGUAL (12:14)
[2022-02-19] MEDS: LORazepam 1 MG TABLET PO (13:44)
--- NOTE | 2022-02-19 15:13 | P.PNPSI_ITS ---
Subjective Subjective Date of Service: 02/19/22 Reason For Visit: Depression, SI, opiate alcohol use d/o Interim History: Patient tearful saying that medications have not worked for her and that she relapsed soon as she was discharged. She reports drinking about 10 alcohol drinks a day. She is currently not suicidal but worries that if she continues on his pattern she will become suicidal again. She reports she is hearing auditory hallucinations and is very anxious. Patient agreed that current withdrawal symptoms are emotionally dysregulated eating and that it will be easier for her to think through treatment options once symptoms have lessened. She agrees to continue with current regimen for now. Software Computer Specialist discussed maintenance medications including does saw for a given patient struggles to resist alcohol what seems to be the 1st step for her when she relapses. Mental Status Exam Mental Status Exam Narrative: A&O. Pt is cooperative, dressed in casual attire, unkempt appearance, psychomotor restlessness, tearful; good eye contact; No Tics or Tremors. No abnormal involuntary movements. Non-pressured speech, spontaneous with regular rate and rhythm, normal volume and prosody. No prolonged speech latency or dysarthria. Mood is ?depressed,? affect is tearful, anxious. Denies SI/SIB/HI upon inquiry. Endorses AH. Denies delusional thought content. Thought content on cycle of addiction No known cognitive or memory impairment. Insight/ Judgment limited by substance use urges and impaired. Diagnostics Vital Signs (24Hr): Vital Signs - 24 hr 02/18/22 18:00 02/19/22 06:00 Temperature 98.2 F 98.2 F Pulse Rate 92 85 Respiratory Rate 16 Blood Pressure 109/63 103/55 L Pulse Oximetry 99 94 BMI result Body Mass Index 24.7 Labs Results: 02/16/22 17:03 02/19/22 08:10 Labs: Laboratory Results - last 48 hr 02/18/22 02/18/22 02/19/22 12:39 14:15 08:10 Sodium 138 Potassium 4.5 D Chloride 106 Carbon Dioxide 22 Anion Gap 15 BUN 15 D Creatinine 0.81 Estim Creat Clear Calc 90.3 Estimated GFR > 60 Random Glucose 100 Estimat Average Glucose Hemoglobin A1c % Calcium 9.5 Magnesium 2.3 Total Bilirubin 0.4 AST 55 H ALT 105 H Alkaline Phosphatase 89 Total Protein 6.6 Albumin 4.0 Triglycerides 138 Cholesterol 139 LDL Cholesterol, Calc 58 HDL Cholesterol 54 Vitamin B12 Folate TSH 1.39 Free T4 [place] < 0.10 L COVID-19 ([facility]) Negative COVID-19 Clin Com See Note 02/19/22 02/19/22 02/19/22 08:10 08:10 08:10 Sodium Potassium Chloride Carbon Dioxide Anion Gap BUN Creatinine Estim Creat Clear Calc Estimated GFR Random Glucose Estimat Average Glucose 97 Hemoglobin A1c % 5.0 Calcium Magnesium Total Bilirubin AST ALT Alkaline Phosphatase Total Protein Albumin Triglycerides Cholesterol LDL Cholesterol, Calc HDL Cholesterol Vitamin B12 377 Folate 17.4 TSH Free T4 1.19 [place] COVID-19 ([facility]BA) COVID-19 Clin Com Medications Medications Current Medications Acetaminophen (Acetaminophen 325 Mg Tablet) 650 mg PO Q6H PRN PRN Reason: Headache/Pain Mild Scale (1-3) Al Hydroxide/Mg Hydroxide (Magnesium Hydrox/Alum Hydrox 30 Ml Oral.Susp) 30 ml PO Q6H PRN PRN Reason: Heartburn/Nausea Buprenorphine/Naloxone (Buprenorphine/Naloxone 8/2 Mg Film) 1 film SUBLINGUAL BID@0900,1700 [facility] Clonazepam (Clonazepam 0.5 Mg Tablet) 0.5 mg PO BID [facility] Stop: 02/20/22 23:50 Clonazepam (Clonazepam 0.5 Mg Tablet) 0.5 mg PO DAILY [facility] Stop: 02/22/22 23:50 Clonidine HCl (Clonidine Hcl 0.1 Mg Tablet) 0.1 mg PO TID PRN; Protocol PRN Reason: withdrawal Last Admin: 02/18/22 16:09 Dose: 0.1 mg Documented by: Docusate Sodium (Docusate Sodium 100 Mg Capsule) 100 mg PO BID PRN PRN Reason: constipation Famotidine (Famotidine 20 Mg Tablet) 20 mg PO DAILY [facility] Last Admin: 02/19/22 09:48 Dose: 20 mg Documented by: Folic Acid (Folic Acid 1 Mg Tablet) 1 mg PO DAILY [facility] Last Admin: 02/19/22 09:48 Dose: 1 mg Documented by: Gabapentin (Gabapentin 600 Mg Tablet) 600 mg PO TID [facility] Last Admin: 02/19/22 14:36 Dose: 600 mg Documented by: Hydroxyzine HCl (Hydroxyzine Hcl 25 Mg Tablet) 25 mg PO BEDTIME PRN PRN Reason: Anxiety Lorazepam (Lorazepam 1 Mg Tablet) 1 mg PO Q2H PRN PRN Reason: ciwa 8-12 Last Admin: 02/19/22 13:44 Dose: 1 mg Documented by: Lorazepam (Lorazepam 1 Mg Tablet) 2 mg PO Q2H PRN PRN Reason: CIWA-ar>13-16 Lorazepam (Lorazepam 1 Mg Tablet) 3 mg PO Q2H PRN PRN Reason: ciwa ar 17-20 Magnesium Hydroxide (Milk Of Magnesia 30 Ml Oral.Susp) 30 ml PO DAILY PRN PRN Reason: Constipation Multivitamins/Vitamin C (Multivitamin Tablet) 1 tab PO DAILY [facility] Last Admin: 02/19/22 09:48 Dose: 1 tab Documented by: Nicotine (Nicotine 21 Mg Patch.Td24) 21 mg TRANSDERMA DAILY [facility] Last Admin: 02/19/22 09:47 Dose: 21 mg Documented by: Nicotine Polacrilex (Nicotine Polacrilex 2 Mg Gum) 2 mg [place]CCAL Q2H PRN PRN Reason: Nicotine Cravings Ondansetron HCl (Ondansetron Odt 8 Mg Tab.Rapdis) 8 mg TRANSLINGU Q8H PRN PRN Reason: nausea Last Admin: 02/18/22 22:19 Dose: 8 mg Documented by: Oxcarbazepine (Oxcarbazepine 300 Mg Tablet) 300 mg PO BID [facility] Last Admin: 02/19/22 09:47 Dose: 300 mg Documented by: Quetiapine Fumarate (Quetiapine Fumarate 300 Mg Tablet) 300 mg PO BEDTIME [facility] Last Admin: 02/18/22 22:05 Dose: 300 mg Documented by: Thiamine HCl (Thiamine Hcl 100 Mg Tablet) 100 mg PO DAILY [facility] Last Admin: 02/19/22 09:47 Dose: 100 mg Documented by: Allergies Allergies Allergy/AdvReac Type Severity Reaction Status Date / Time No Known Allergies Allergy Verified 01/30/22 11:11 Assessment & Plan Assessment & Plan (1) Bipolar 2 disorder: Status: Acute Code(s): F31.81 - Bipolar II disorder (2) Cocaine use disorder: Status: Acute Code(s): F14.10 - Cocaine abuse, uncomplicated (3) Alcohol use disorder, severe, dependence: Status: Acute Code(s): F10.20 - Alcohol dependence, uncomplicated (4) Opioid use disorder: Status: Acute Code(s): F11.90 - Opioid use, unspecified, uncomplicated Plan Bella is a 31 y.o. Female who carries a dx of Bipolar II DO, polysubstance abuse, and severe alcohol abuse. She has co-morbid diagnosis of hepatitis C. She presented to [facility] ED on 02/16/22 31 due to SI, depression, A/VH. Utox positive for opiates, fentanyl, an cocaine. EKG showed NSR, QTc 437. Li level <0.1. Ethyl alcohol level 22. Pt currently on MAT, suboxone.? Plan: CV Q15 min checks Pt is on day three of alcohol withdrawal (ETHYL alcohol 22 on arrival, drank ?a sleeve or so? prior to coming in, has been receiving ativan 2 mg Q6H PRN in the ED. Will re-start CIWA and lower ativan to 2 mg Q8H PRN. -added clonazepam taper for etoh w/drawal Will start comfort meds for withdrawal and place addiction consult, as pt is asking to take suboxone in the afternoon. Will discontinue trazodone, as pt report she had night terrors on this. Will change seroquel to 300 mg QHS, as pt does not like to take in the daytime due to sedation, willing to trial a higher dose at bedtime to target sx of depression, agitation, poor sleep, and mood dysregulation. Will start trileptal 300 mg BID to target sx of mood dysregulation and anxiety, as pt has been non-adherent with lithium and unreliable with lab work. Will continue gabapentin and clonidine.? Monitor response to medications. Monitor for safety in the milieu. Discharge on stabilization. Patient seen. Chart reviewed. Discussed with team. Obtain collateral contact info as needed I spent minutes with the patient and/or on the patient floor today, greater than?50% of which was spent counseling/coordinating care. Patient educated on: diagnosis, medication risk/benefits and substance abuse Informed Consent: understands Reason for contiued inpatient stay Substantial Risk for: rapid decompensation
[2022-02-19] MEDS: Nicotine Polacrilex 2 MG GUM BUCCAL (15:35)
[2022-02-19] MEDS: Acetaminophen 325 MG TABLET 650 MG PO (15:35)
[2022-02-19] MEDS: clonazePAM 0.5 MG TABLET PO ×2 (15:35→19:50)
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
[2022-02-19 16:00] VITALS: PULSE 69
[2022-02-19 18:00] VITALS: BP 108/58; PULSE 69; TEMP 36.2; O2SAT 99
[2022-02-19] MEDS: QUEtiapine Fumarate 300 MG TABLET PO (19:50)
[2022-02-20 08:00] VITALS: PULSE 102
[2022-02-20] MEDS: OXcarbazepine 300 MG TABLET PO ×2 (08:42→20:43)
[2022-02-20] MEDS: Multivitamin TABLET 1 TAB PO (08:42)
[2022-02-20] MEDS: Gabapentin 600 MG TABLET PO ×3 (08:42→20:44)
[2022-02-20] MEDS: Folic Acid 1 MG TABLET PO (08:42)
[2022-02-20] MEDS: Buprenorphine/Naloxone 8/2 mg FILM 1 FILM SUBLINGUAL ×2 (08:42→16:05)
[2022-02-20] MEDS: clonazePAM 0.5 MG TABLET PO ×2 (08:42→20:44)
[2022-02-20] MEDS: Famotidine 20 MG TABLET PO (08:42)
[2022-02-20] MEDS: Thiamine HCL 100 MG TABLET PO (08:42)
[2022-02-20] MEDS: Nicotine 21 MG PATCH.TD24 TRANSDERMA (08:43)
[2022-02-20 08:46] VITALS: BP 147/69; PULSE 102; RESP 16; TEMP 36.3; O2SAT 99
[2022-02-20] MEDS: chlorproMAZINE HCl 25 MG TABLET PO ×2 (14:02→19:09)
[2022-02-20] MEDS: LORazepam 1 MG TABLET PO ×2 (15:41→20:46)
[2022-02-20 18:00] VITALS: BP 108/67; PULSE 103; TEMP 37.2; O2SAT 98
[2022-02-20] MEDS: QUEtiapine Fumarate 300 MG TABLET PO (20:43)
[2022-02-20] MEDS: cloNIDine HCL 0.1 MG TABLET PO (20:51)
--- NOTE | 2022-02-20 21:04 | HO.PSYCHPN ---
Subjective Subjective Date of Service: 02/20/22 Reason For Visit: Depression, SI, opiate alcohol use d/o Interim History: Patient reports feeling very depressed. She does not have active suicidality however has numerous thoughts about what is the point of living... Patient continues to have withdrawal symptoms and reports that while she is able to rest she has very odd and disturbing dreams that make it difficult to feel rested. 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 She said yes this is what happened at the end of discharge and she was therefore he few weeks, which is different from her explanation on admission. She said it was not helpful and she ended up leaving. Patient agreed to talk about this more once withdrawal symptoms less troublesome. Mental Status Exam Mental Status Exam Narrative: A&O. Pt is cooperative, dressed in casual attire, unkempt appearance, some psychomotor restlessness;? eyes mostly closed contact; No Tics or Tremors. No abnormal involuntary movements. Non-pressured speech, spontaneous with regular rate and rhythm, normal volume and prosody. No prolonged speech latency or dysarthria. Mood is ?depressed,? affect remains tearful, anxious. Denies passive wish but not active SI; no HI; Endorses AH. Denies delusional thought content. Thought content on failed attempts to extricate herself from cycle of addiction; No known cognitive or memory impairment. Insight/ Judgment limited by substance use urges, withdrawal symptoms and impaired. Diagnostics Vital Signs (24Hr): Vital Signs - 24 hr 02/20/22 08:46 02/20/22 18:00 Temperature 97.3 F 98.9 F Pulse Rate 102 H 103 H Respiratory Rate 16 Blood Pressure 147/69 H 108/67 Pulse Oximetry 99 98 BMI result Body Mass Index 24.7 Labs Results: 02/16/22 17:03 02/19/22 08:10 Labs: Laboratory Results - last 48 hr 02/19/22 02/19/22 02/19/22 08:10 08:10 08:10 Sodium 138 Potassium 4.5 D Chloride 106 Carbon Dioxide 22 Anion Gap 15 BUN 15 D Creatinine 0.81 Estim Creat Clear Calc 90.3 Estimated GFR > 60 Random Glucose 100 Estimat Average Glucose 97 Hemoglobin A1c % 5.0 Calcium 9.5 Magnesium 2.3 Total Bilirubin 0.4 AST 55 H ALT 105 H Alkaline Phosphatase 89 Total Protein 6.6 Albumin 4.0 Triglycerides 138 Cholesterol 139 LDL Cholesterol, Calc 58 HDL Cholesterol 54 Vitamin B12 377 Folate 17.4 TSH 1.39 Free T4 02/19/22 08:10 Sodium Potassium Chloride Carbon Dioxide Anion Gap BUN Creatinine Estim Creat Clear Calc Estimated GFR Random Glucose Estimat Average Glucose Hemoglobin A1c % Calcium Magnesium Total Bilirubin AST ALT Alkaline Phosphatase Total Protein Albumin Triglycerides Cholesterol LDL Cholesterol, Calc HDL Cholesterol Vitamin B12 Folate TSH Free T4 1.19 Medications Medications Current Medications Acetaminophen (Acetaminophen 325 Mg Tablet) 650 mg PO Q6H PRN PRN Reason: Headache/Pain Mild Scale (1-3) Last Admin: 02/19/22 15:35 Dose: 650 mg Documented by: Al Hydroxide/Mg Hydroxide (Magnesium Hydrox/Alum Hydrox 30 Ml Oral.Susp) 30 ml PO Q6H PRN PRN Reason: Heartburn/Nausea Buprenorphine/Naloxone (Buprenorphine/Naloxone 8/2 Mg Film) 1 film SUBLINGUAL BID@0900,1700 [facility] Last Admin: 02/20/22 16:05 Dose: 1 film Documented by: Chlorpromazine HCl (Chlorpromazine Hcl 25 Mg Tablet) 25 mg PO TID PRN PRN Reason: anxiety Last Admin: 02/20/22 19:09 Dose: 25 mg Documented by: Clonazepam (Clonazepam 0.5 Mg Tablet) 0.5 mg PO BID [facility] Stop: 02/20/22 23:50 Last Admin: 02/20/22 20:44 Dose: 0.5 mg Documented by: Clonazepam (Clonazepam 0.5 Mg Tablet) 0.5 mg PO DAILY [facility] Stop: 02/22/22 23:50 Clonidine HCl (Clonidine Hcl 0.1 Mg Tablet) 0.1 mg PO TID PRN; Protocol PRN Reason: withdrawal Last Admin: 02/20/22 20:51 Dose: 0.1 mg Documented by: Docusate Sodium (Docusate Sodium 100 Mg Capsule) 100 mg PO BID PRN PRN Reason: constipation Famotidine (Famotidine 20 Mg Tablet) 20 mg PO DAILY [facility] Last Admin: 02/20/22 08:42 Dose: 20 mg Documented by: Folic Acid (Folic Acid 1 Mg Tablet) 1 mg PO DAILY [facility] Last Admin: 02/20/22 08:42 Dose: 1 mg Documented by: Gabapentin (Gabapentin 600 Mg Tablet) 600 mg PO TID [facility] Last Admin: 02/20/22 20:44 Dose: 600 mg Documented by: Hydroxyzine HCl (Hydroxyzine Hcl 25 Mg Tablet) 25 mg PO BEDTIME PRN PRN Reason: Anxiety Lorazepam (Lorazepam 1 Mg Tablet) 1 mg PO Q2H PRN PRN Reason: ciwa 8-12 Last Admin: 02/20/22 20:46 Dose: 1 mg Documented by: Lorazepam (Lorazepam 1 Mg Tablet) 2 mg PO Q2H PRN PRN Reason: CIWA-ar>13-16 Lorazepam (Lorazepam 1 Mg Tablet) 3 mg PO Q2H PRN PRN Reason: ciwa ar 17-20 Magnesium Hydroxide (Milk Of Magnesia 30 Ml Oral.Susp) 30 ml PO DAILY PRN PRN Reason: Constipation Multivitamins/Vitamin C (Multivitamin Tablet) 1 tab PO DAILY [facility] Last Admin: 02/20/22 08:42 Dose: 1 tab Documented by: Nicotine (Nicotine 21 Mg Patch.Td24) 21 mg TRANSDERMA DAILY [facility] Last Admin: 02/20/22 08:43 Dose: 21 mg Documented by: Nicotine Polacrilex (Nicotine Polacrilex 2 Mg Gum) 2 mg BUCCAL Q2H PRN PRN Reason: Nicotine Cravings Last Admin: 02/19/22 15:35 Dose: 2 mg Documented by: Ondansetron HCl (Ondansetron Odt 8 Mg Tab.Rapdis) 8 mg TRANSLINGU Q8H PRN PRN Reason: nausea Last Admin: 02/18/22 22:19 Dose: 8 mg Documented by: Oxcarbazepine (Oxcarbazepine 300 Mg Tablet) 300 mg PO BID [facility] Last Admin: 02/20/22 20:43 Dose: 300 mg Documented by: Quetiapine Fumarate (Quetiapine Fumarate 300 Mg Tablet) 300 mg PO BEDTIME [facility] Last Admin: 02/20/22 20:43 Dose: 300 mg Documented by: Thiamine HCl (Thiamine Hcl 100 Mg Tablet) 100 mg PO DAILY [facility] Last Admin: 02/20/22 08:42 Dose: 100 mg Documented by: Allergies Allergies Allergy/AdvReac Type Severity Reaction Status Date / Time No Known Allergies Allergy Verified 01/30/22 11:11 Assessment & Plan Assessment & Plan (1) Bipolar 2 disorder: Status: Acute Code(s): F31.81 - Bipolar II disorder (2) Cocaine use disorder: Status: Acute Code(s): F14.10 - Cocaine abuse, uncomplicated (3) Alcohol use disorder, severe, dependence: Status: Acute Code(s): F10.20 - Alcohol dependence, uncomplicated (4) Opioid use disorder: Status: Acute Code(s): F11.90 - Opioid use, unspecified, uncomplicated Plan Bella is a 31 y.o. Female who carries a dx of Bipolar II DO, polysubstance abuse, and severe alcohol abuse. She has co-morbid diagnosis of hepatitis C. She presented to [facility] on 02/16/22 due to SI, depression, A/VH. Utox positive for opiates, fentanyl, an cocaine. EKG showed NSR, QTc 437. Li level <0.1. Ethyl alcohol level 22. Pt currently on MAT, suboxone.? 02/20 patient still in withdrawal, depressed with passive SI. She asks for something for anxiety and agrees to low-dose Thorazine Plan: CV Q15 min checks will dc CIWA if scores remain low DC cows, pt on suboxone START thorazine 25mg prn for anxiety (discussed risks/side-effects) -added clonazepam taper for etoh w/drawal Will start comfort meds for withdrawal and place addiction consult, as pt is asking to take suboxone in the afternoon. Will discontinue trazodone, as pt report she had night terrors on this. Will change seroquel to 300 mg QHS, as pt does not like to take in the daytime due to sedation, willing to trial a higher dose at bedtime to target sx of depression, agitation, poor sleep, and mood dysregulation. Will start trileptal 300 mg BID to target sx of mood dysregulation and anxiety, as pt has been non-adherent with lithium and unreliable with lab work. Will continue gabapentin and clonidine.? Monitor response to medications. Monitor for safety in the milieu. Discharge on stabilization. Patient seen. Chart reviewed. Discussed with team. Obtain collateral contact info as needed I spent minutes with the patient and/or on the patient floor today, greater than?50% of which was spent counseling/coordinating care. Patient educated on: medication risk/benefits and substance abuse Informed Consent: understands Reason for contiued inpatient stay Substantial Risk for: harm to self and rapid decompensation
[2022-02-21 06:00] VITALS: BP 111/60; PULSE 97; RESP 18; TEMP 36.7; O2SAT 98
[2022-02-21] MEDS: Folic Acid 1 MG TABLET PO (09:45)
[2022-02-21] MEDS: Thiamine HCL 100 MG TABLET PO (09:45)
[2022-02-21] MEDS: Gabapentin 600 MG TABLET PO ×3 (09:45→20:25)
[2022-02-21] MEDS: clonazePAM 0.5 MG TABLET PO (09:45)
[2022-02-21] MEDS: OXcarbazepine 300 MG TABLET PO (09:45)
[2022-02-21] MEDS: Famotidine 20 MG TABLET PO ×2 (09:46→20:25)
[2022-02-21] MEDS: Nicotine 21 MG PATCH.TD24 TRANSDERMA (09:46)
[2022-02-21] MEDS: Multivitamin TABLET 1 TAB PO (09:46)
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
[2022-02-21] MEDS: Buprenorphine/Naloxone 8/2 mg FILM 1 FILM SUBLINGUAL ×2 (10:25→16:16)
[2022-02-21] MEDS: chlorproMAZINE HCl 25 MG TABLET PO (13:44)
[2022-02-21] MEDS: cloNIDine HCL 0.1 MG TABLET PO ×3 (13:44→21:21)
[2022-02-21] MEDS: Divalproex Sodium ER 250 MG TAB.ER.24H PO (16:16)
[2022-02-21] MEDS: Docusate Sodium 100 MG CAPSULE PO (16:48)
[2022-02-21 18:00] VITALS: BP 128/74; PULSE 93; RESP 16; TEMP 35.8; O2SAT 100
[2022-02-21] MEDS: hydrOXYzine HCL 25 MG TABLET PO ×2 (18:16→21:21)
[2022-02-21] MEDS: traZODone HCL 50 MG TABLET PO (20:25)
[2022-02-21] MEDS: Divalproex Sodium ER 500 MG TAB.ER.24H PO (20:25)
[2022-02-21] MEDS: Prazosin HCL 1 MG CAPSULE PO (20:25)
[2022-02-21] MEDS: busPIRone HCl 10 MG TABLET PO (21:22)
[2022-02-22 06:00] VITALS: BP 132/75; PULSE 92; RESP 16; TEMP 36.9; O2SAT 97
[2022-02-22] MEDS: Nicotine 21 MG PATCH.TD24 TRANSDERMA (08:41)
[2022-02-22] MEDS: Folic Acid 1 MG TABLET PO (08:42)
[2022-02-22] MEDS: Gabapentin 600 MG TABLET PO ×3 (08:42→20:15)
[2022-02-22] MEDS: Thiamine HCL 100 MG TABLET PO (08:42)
[2022-02-22] MEDS: Multivitamin TABLET 1 TAB PO (08:42)
[2022-02-22] MEDS: clonazePAM 0.5 MG TABLET PO (08:42)
[2022-02-22] MEDS: Buprenorphine/Naloxone 8/2 mg FILM 1 FILM SUBLINGUAL ×2 (08:45→16:13)
[2022-02-22] MEDS: busPIRone HCl 10 MG TABLET PO ×2 (08:45→17:07)
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
[2022-02-22 12:02] LABS: Alanine Aminotransferase 54 U/L (0-31); Albumin Level 3.6 g/dL (3.5-5.0); Alkaline Phosphatase 94 U/L (39-117); Aspartate Amino Transferase 36 U/L (5-31); Bilirubin Direct < 0.2 mg/dL (0.0-0.5); Bilirubin Total 0.4 mg/dL (0.0-1.0)
[2022-02-22] MEDS: chlorproMAZINE HCl 25 MG TABLET 50 MG PO (13:01)
[2022-02-22] MEDS: cloNIDine HCL 0.1 MG TABLET PO (13:01)
[2022-02-22] MEDS: chlorproMAZINE HCl 25 MG TABLET 75 MG PO (14:49)
[2022-02-22 18:00] VITALS: BP 103/53; PULSE 94
[2022-02-22] MEDS: Prazosin HCL 1 MG CAPSULE PO (20:15)
[2022-02-22] MEDS: Divalproex Sodium ER 250 MG TAB.ER.24H 750 MG PO (20:15)
[2022-02-22] MEDS: traZODone HCL 100 MG TABLET PO (20:16)
[2022-02-22] MEDS: Famotidine 20 MG TABLET PO (20:16)
[2022-02-22] MEDS: busPIRone HCl 10 MG TABLET 20 MG PO (20:30)
[2022-02-23 06:00] VITALS: BP 100/56; PULSE 78; RESP 15; TEMP 36.7; O2SAT 98
[2022-02-23] MEDS: Milk of Magnesia 30 ML ORAL.SUSP PO (09:09)
[2022-02-23] MEDS: Nicotine 21 MG PATCH.TD24 TRANSDERMA (09:09)
[2022-02-23] MEDS: Buprenorphine/Naloxone 8/2 mg FILM 1 FILM SUBLINGUAL ×2 (09:09→17:25)
[2022-02-23] MEDS: Gabapentin 600 MG TABLET PO ×3 (09:10→20:26)
[2022-02-23] MEDS: cloNIDine HCL 0.1 MG TABLET PO ×3 (09:10→18:45)
[2022-02-23] MEDS: FLUoxetine HCl 10 MG CAPSULE PO (09:10)
[2022-02-23] MEDS: Folic Acid 1 MG TABLET PO (09:10)
[2022-02-23] MEDS: Multivitamin TABLET 1 TAB PO (09:10)
[2022-02-23] MEDS: busPIRone HCl 10 MG TABLET 20 MG PO ×4 (09:10→20:27)
[2022-02-23] MEDS: Thiamine HCL 100 MG TABLET PO (09:10)
[2022-02-23] MEDS: chlorproMAZINE HCl 25 MG TABLET 75 MG PO ×3 (09:10→18:44)
[2022-02-23] MEDS: Famotidine 20 MG TABLET PO ×2 (09:10→20:27)
[2022-02-23 13:35] VITALS: BP 107/59; PULSE 89
[2022-02-23] MEDS: Nicotine Polacrilex 2 MG GUM BUCCAL (15:28)
--- NOTE | 2022-02-23 17:12 | HO.PSYCHPN ---
Subjective Subjective Date of Service: 02/23/22 Reason For Visit: Depression, SI, opiate alcohol use d/o Interim History: Patient seen and discussed with team. Patient evaluated today and upon interview she reports she has depressing days, just started prozac. Says it sucks that i cant take ativan or klonopin. Describes sleep as gawd awful, has no energy, up 5am. Reports she has a lot on my mind. Pt says she is not ready at all for discharge, continues to endorse passive SI, ill do something stupid if I leave. Unable to say if thorazine is helping, it calms me down if anything. Says seroquel doesnt do anything. Appetite is low. In the milieu, patient is anxious in behavior. Says she feels safe. Medication Compliance: Yes Side effects from medications: No Attending Groups: Intermittent Review of Systems Acute medical concerns: No Medical Review of Systems: unchanged Mental Status Exam Mental Status Exam Narrative: A&O. Pt is cooperative, dressed in casual attire, appropriately groomed; no psychomotor restlessness;? good eye contact; No Tics or Tremors. No abnormal involuntary movements. Speech regular rate,? volume and prosody. No prolonged speech latency or dysarthria. Mood is ?anxious? affect anxious. intermittent passive wish but not active SI; no HI; No AH of hearing her name called. Denies delusional thought content. Thought content on failed attempts to extricate herself from cycle of addiction; guilt for past behaviors, mothers ; perseverative. No known cognitive or memory impairment. Insight/ Judgment impaired but improving. Diagnostics Vital Signs (24Hr): Vital Signs - 24 hr 02/24/22 08:20 02/24/22 18:00 Temperature 97.7 F 98.1 F Pulse Rate 99 90 Respiratory Rate 16 16 Blood Pressure 92/53 L 111/51 L Pulse Oximetry 97 98 BMI result Body Mass Index 24.7 Labs Results: 02/16/22 17:03 02/19/22 08:10 Labs: Laboratory Results - last 48 hr 02/24/22 02/24/22 07:39 07:39 Total Bilirubin 0.4 Direct Bilirubin < 0.2 AST 36 H ALT 56 H Alkaline Phosphatase 92 Ammonia 52 Total Protein 6.1 L Albumin 3.6 Valproic Acid 44.9 L Medications Medications Current Medications Al Hydroxide/Mg Hydroxide (Magnesium Hydrox/Alum Hydrox 30 Ml Oral.Susp) 30 ml PO Q6H PRN PRN Reason: Heartburn/Nausea Buprenorphine/Naloxone (Buprenorphine/Naloxone 8/2 Mg Film) 1 film SUBLINGUAL BID@0900,1700 [facility] Last Admin: 02/24/22 17:10 Dose: 1 film Documented by: Buspirone HCl (Buspirone Hcl 10 Mg Tablet) 30 mg PO BID [facility] Last Admin: 02/24/22 20:14 Dose: 30 mg Documented by: Chlorpromazine HCl (Chlorpromazine Hcl 25 Mg Tablet) 75 mg PO TID PRN PRN Reason: anxiety Last Admin: 02/24/22 13:27 Dose: 75 mg Documented by: Chlorpromazine HCl (Chlorpromazine Hcl 100 Mg Tablet) 100 mg PO BEDTIME PRN PRN Reason: insomnia Last Admin: 02/24/22 19:44 Dose: 100 mg Documented by: Clonidine HCl (Clonidine Hcl 0.1 Mg Tablet) 0.1 mg PO TID PRN; Protocol PRN Reason: Anxiety Last Admin: 02/24/22 19:44 Dose: 0.1 mg Documented by: Divalproex Sodium (Divalproex Sodium Er 250 Mg Tab.Er.24h) 750 mg PO BEDTIME [facility] Last Admin: 02/24/22 20:14 Dose: 750 mg Documented by: Docusate Sodium (Docusate Sodium 100 Mg Capsule) 100 mg PO BID PRN PRN Reason: constipation Last Admin: 02/21/22 16:48 Dose: 100 mg Documented by: Famotidine (Famotidine 20 Mg Tablet) 20 mg PO BID [facility] Last Admin: 02/24/22 20:13 Dose: 20 mg Documented by: Fluoxetine HCl (Fluoxetine Hcl 10 Mg Capsule) 10 mg PO DAILY [facility] Last Admin: 02/24/22 08:14 Dose: 10 mg Documented by: Folic Acid (Folic Acid 1 Mg Tablet) 1 mg PO DAILY [facility] Last Admin: 02/24/22 08:14 Dose: 1 mg Documented by: Gabapentin (Gabapentin 600 Mg Tablet) 600 mg PO TID [facility] Last Admin: 02/24/22 20:13 Dose: 600 mg Documented by: Hydroxyzine HCl (Hydroxyzine Hcl 25 Mg Tablet) 25 mg PO BEDTIME PRN PRN Reason: Anxiety Last Admin: 02/24/22 19:44 Dose: 25 mg Documented by: Ibuprofen (Ibuprofen 600 Mg Tablet) 600 mg PO Q6H PRN PRN Reason: Pain, Mild (Pain Scale 1-3) Magnesium Hydroxide (Milk Of Magnesia 30 Ml Oral.Susp) 30 ml PO DAILY PRN PRN Reason: Constipation Last Admin: 02/23/22 09:09 Dose: 30 ml Documented by: Multivitamins/Vitamin C (Multivitamin Tablet) 1 tab PO DAILY [facility] Last Admin: 02/24/22 08:15 Dose: 1 tab Documented by: Nicotine (Nicotine 21 Mg Patch.Td24) 21 mg TRANSDERMA DAILY [facility] Last Admin: 02/24/22 08:14 Dose: 21 mg Documented by: Nicotine Polacrilex (Nicotine Polacrilex 2 Mg Gum) 2 mg BUCCAL Q2H PRN PRN Reason: Nicotine Cravings Last Admin: 02/24/22 20:13 Dose: 2 mg Documented by: Ondansetron HCl (Ondansetron Odt 8 Mg Tab.Rapdis) 8 mg TRANSLINGU Q8H PRN PRN Reason: nausea Last Admin: 02/18/22 22:19 Dose: 8 mg Documented by: Prazosin HCl (Prazosin Hcl 1 Mg Capsule) 1 mg PO BEDTIME [facility]; Protocol Last Admin: 02/24/22 20:13 Dose: 1 mg Documented by: Thiamine HCl (Thiamine Hcl 100 Mg Tablet) 100 mg PO DAILY [facility] Last Admin: 02/24/22 08:15 Dose: 100 mg Documented by: Trazodone HCl (Trazodone Hcl 100 Mg Tablet) 100 mg PO BEDTIME [facility] Last Admin: 02/24/22 20:14 Dose: 100 mg Documented by: Allergies Allergies Allergy/AdvReac Type Severity Reaction Status Date / Time No Known Allergies Allergy Verified 01/30/22 11:11 Assessment & Plan Assessment & Plan (1) Bipolar 2 disorder: Status: Acute Code(s): F31.81 - Bipolar II disorder (2) Cocaine use disorder: Status: Acute Code(s): F14.10 - Cocaine abuse, uncomplicated (3) Alcohol use disorder, severe, dependence: Status: Acute Code(s): F10.20 - Alcohol dependence, uncomplicated (4) Opioid use disorder: Status: Acute Code(s): F11.90 - Opioid use, unspecified, uncomplicated Plan Bella is a 31 y.o. Female who carries a dx of Bipolar II DO, polysubstance abuse, and severe alcohol abuse. She has co-morbid diagnosis of hepatitis C. She presented to [facility] on 02/16/22 due to SI, depression, A/VH. Utox positive for opiates, fentanyl, an cocaine. EKG showed NSR, QTc 437. Li level <0.1. Ethyl alcohol level 22. Pt currently on MAT, suboxone.? 02/20 patient still in withdrawal, depressed with passive SI. She asks for something for anxiety and agrees to low-dose Thorazine 02/21 patient remains depressed with passive SI, emotionally labile, excessively guilty. Starting her on Depakote since she has a diagnosis of bipolar disorder and her mother was reportedly successfully treated with Depakote; once more stable will likely start Prozac. Patient says she has never had a therapist and has been afraid of talking about her history however sees the utility in this and wants to try 02/22 some improvement, with mild lessening of depressive symptoms; intermittent SI but overall more hopeful. Review of history makes bipolar seem less likely; she does have a history of manic episodes however when they last 3 or more days, these are typically associated with substance abuse; will leave bipolar 2 disorder as a provisional disorder however database report writer discussed with patient that both PTSD and substance abuse have overlapping symptoms and it is possible that at some point, Prozac alone maybe adequate. At this point however patient feels that her mood lability is too severe and 2 triggering to forego a mood stabilizer and wants to remain on Depakote while also getting on Prozac. Patient reiterates that she is finally feeling ready to engage in therapy and no she needs it 02/23: Increase buspar to 20 mg TID, as higher dose range is more effective for sx of anxiety. Pt reports poor sleep, will increase thorazine at bedtime to 100-200 mg QHS. Plan: CV Q15 min checks dc CIWA; not needed benzo via CIWA since 02/19 START Prozac 10mg for ptsd, depression. Continue Depakote ER 750mg qhs (previously discussed with patient risk of hepatotoxicity given history of hep C; she agreed to trial anyway since her mother had been on it; database report writer ordered LFTs which continue to trend towards normal) Will consider Prozac after few days on Depakote. DC Trileptal DC Seroquel; patient wants trazodone instead and is not concerned with night terrors Start prazosin 1 mg q.h.s. for nightmares Increased to thorazine 50mg prn for anxiety (discussed risks/side-effects) -added clonazepam taper for etoh w/drawal Will start comfort meds for withdrawal and place addiction consult, as pt is asking to take suboxone in the afternoon. Will continue gabapentin and clonidine.? Monitor response to medications. Monitor for safety in the milieu. Discharge on stabilization. Patient seen. Chart reviewed. Discussed with team. Obtain collateral contact info as needed I spent minutes with the patient and/or on the patient floor today, greater than?50% of which was spent counseling/coordinating care. Reason for contiued inpatient stay Substantial Risk for: harm to self, rapid decompensation and med/psych decompensation
[2022-02-23 18:00] VITALS: BP 126/79; PULSE 89; RESP 16; TEMP 36.4; O2SAT 98
[2022-02-23] MEDS: hydrOXYzine HCL 25 MG TABLET PO (18:43)
[2022-02-23] MEDS: Prazosin HCL 1 MG CAPSULE PO (20:26)
[2022-02-23] MEDS: Divalproex Sodium ER 250 MG TAB.ER.24H 750 MG PO (20:26)
[2022-02-23] MEDS: traZODone HCL 100 MG TABLET PO (20:27)
[2022-02-23] MEDS: chlorproMAZINE HCl 100 MG TABLET PO (21:11)
[2022-02-24 08:01] LABS: Ammonia 52 umol/L (13-55)
[2022-02-24 08:06] LABS: Alanine Aminotransferase 56 U/L (0-31); Albumin Level 3.6 g/dL (3.5-5.0); Alkaline Phosphatase 92 U/L (39-117); Aspartate Amino Transferase 36 U/L (5-31); Bilirubin Direct < 0.2 mg/dL (0.0-0.5); Bilirubin Total 0.4 mg/dL (0.0-1.0); Total Protein 6.1 g/dL (6.5-8.0)
[2022-02-24 08:12] LABS: Valproate 44.9 mcg/mL (50.0-100.0)
[2022-02-24] MEDS: Folic Acid 1 MG TABLET PO (08:14)
[2022-02-24] MEDS: chlorproMAZINE HCl 25 MG TABLET 75 MG PO ×2 (08:14→13:27)
[2022-02-24] MEDS: Buprenorphine/Naloxone 8/2 mg FILM 1 FILM SUBLINGUAL ×2 (08:14→17:10)
[2022-02-24] MEDS: FLUoxetine HCl 10 MG CAPSULE PO (08:14)
[2022-02-24] MEDS: Nicotine 21 MG PATCH.TD24 TRANSDERMA (08:14)
[2022-02-24] MEDS: Multivitamin TABLET 1 TAB PO (08:15)
[2022-02-24] MEDS: Famotidine 20 MG TABLET PO ×2 (08:15→20:13)
[2022-02-24] MEDS: Gabapentin 600 MG TABLET PO ×3 (08:15→20:13)
[2022-02-24] MEDS: Thiamine HCL 100 MG TABLET PO (08:15)
[2022-02-24] MEDS: busPIRone HCl 10 MG TABLET 20 MG PO (08:15)
[2022-02-24 08:20] VITALS: BP 92/53; PULSE 99; RESP 16; TEMP 36.5; O2SAT 97
[2022-02-24] MEDS: cloNIDine HCL 0.1 MG TABLET PO ×2 (11:32→19:44)
--- NOTE | 2022-02-24 15:11 | P.PNPSI_ITS ---
Subjective Subjective Date of Service: 02/24/22 Reason For Visit: Depression, SI, opiate alcohol use d/o Interim History: Patient seen and discussed with team. Patient evaluated today and upon interview she reports her sleep was somewhat better on the increased thorazine but she was woken up for a potential room change, which disrupted her sleep. Says she has been feeling triggered, inc reased flashbacks, feels like im all over the place. Says she feels buspar is helping but asks for a dose increase. Asks about wellbutrin. Denies nightmares. In the milieu, patient is safe but anxious in behavior. Denies SI/SIB/HI upon inquiry. Says she feels safe. Medication Compliance: Yes Side effects from medications: No Attending Groups: Yes Review of Systems Acute medical concerns: No Medical Review of Systems: unchanged Mental Status Exam Mental Status Exam Narrative: A&O. Pt is cooperative, dressed in casual attire, appropriately groomed; no psychomotor restlessness;? good eye contact; No Tics or Tremors. No abnormal involuntary movements. Speech regular rate,? volume and prosody. No prolonged speech latency or dysarthria. Mood is ?anxious? affect anxious, tearful at times. intermittent passive wish but not active SI; no HI; No AH of hearing her name called. Denies delusional thought content. Thought content on failed attempts to extricate herself from cycle of addiction; guilt for past behaviors, mothers ; perseverative. No known cognitive or memory impairment. Insight/ Judgment impaired but improving. Diagnostics Vital Signs (24Hr): Vital Signs - 24 hr 02/24/22 08:20 02/24/22 18:00 02/25/22 06:00 Temperature 97.7 F 98.1 F 98 F Pulse Rate 99 90 74 Respiratory Rate 16 16 Blood Pressure 92/53 L 111/51 L 120/80 Pulse Oximetry 97 98 98 BMI result Body Mass Index 24.7 Labs Results: 02/16/22 17:03 02/19/22 08:10 Labs: Laboratory Results - last 48 hr 02/24/22 02/24/22 07:39 07:39 Total Bilirubin 0.4 Direct Bilirubin < 0.2 AST 36 H ALT 56 H Alkaline Phosphatase 92 Ammonia 52 Total Protein 6.1 L Albumin 3.6 Valproic Acid 44.9 L Medications Medications Current Medications Al Hydroxide/Mg Hydroxide (Magnesium Hydrox/Alum Hydrox 30 Ml Oral.Susp) 30 ml PO Q6H PRN PRN Reason: Heartburn/Nausea Buprenorphine/Naloxone (Buprenorphine/Naloxone 8/2 Mg Film) 1 film SUBLINGUAL BID@0900,1700 [facility] Last Admin: 02/24/22 17:10 Dose: 1 film Documented by: Buspirone HCl (Buspirone Hcl 10 Mg Tablet) 30 mg PO BID [facility] Last Admin: 02/24/22 20:14 Dose: 30 mg Documented by: Chlorpromazine HCl (Chlorpromazine Hcl 25 Mg Tablet) 75 mg PO TID PRN PRN Reason: anxiety Last Admin: 02/24/22 13:27 Dose: 75 mg Documented by: Chlorpromazine HCl (Chlorpromazine Hcl 100 Mg Tablet) 100 mg PO BEDTIME PRN PRN Reason: insomnia Last Admin: 02/24/22 19:44 Dose: 100 mg Documented by: Clonidine HCl (Clonidine Hcl 0.1 Mg Tablet) 0.1 mg PO TID PRN; Protocol PRN Reason: Anxiety Last Admin: 02/24/22 19:44 Dose: 0.1 mg Documented by: Divalproex Sodium (Divalproex Sodium Er 250 Mg Tab.Er.24h) 750 mg PO BEDTIME [facility] Last Admin: 02/24/22 20:14 Dose: 750 mg Documented by: Docusate Sodium (Docusate Sodium 100 Mg Capsule) 100 mg PO BID PRN PRN Reason: constipation Last Admin: 02/21/22 16:48 Dose: 100 mg Documented by: Famotidine (Famotidine 20 Mg Tablet) 20 mg PO BID [facility] Last Admin: 02/24/22 20:13 Dose: 20 mg Documented by: Fluoxetine HCl (Fluoxetine Hcl 10 Mg Capsule) 10 mg PO DAILY [facility] Last Admin: 02/24/22 08:14 Dose: 10 mg Documented by: Folic Acid (Folic Acid 1 Mg Tablet) 1 mg PO DAILY [facility] Last Admin: 02/24/22 08:14 Dose: 1 mg Documented by: Gabapentin (Gabapentin 600 Mg Tablet) 600 mg PO TID [facility] Last Admin: 02/24/22 20:13 Dose: 600 mg Documented by: Hydroxyzine HCl (Hydroxyzine Hcl 25 Mg Tablet) 25 mg PO BEDTIME PRN PRN Reason: Anxiety Last Admin: 02/24/22 19:44 Dose: 25 mg Documented by: Ibuprofen (Ibuprofen 600 Mg Tablet) 600 mg PO Q6H PRN PRN Reason: Pain, Mild (Pain Scale 1-3) Magnesium Hydroxide (Milk Of Magnesia 30 Ml Oral.Susp) 30 ml PO DAILY PRN PRN Reason: Constipation Last Admin: 02/23/22 09:09 Dose: 30 ml Documented by: Multivitamins/Vitamin C (Multivitamin Tablet) 1 tab PO DAILY [facility] Last Admin: 02/24/22 08:15 Dose: 1 tab Documented by: Nicotine (Nicotine 21 Mg Patch.Td24) 21 mg TRANSDERMA DAILY [facility] Last Admin: 02/24/22 08:14 Dose: 21 mg Documented by: Nicotine Polacrilex (Nicotine Polacrilex 2 Mg Gum) 2 mg BUCCAL Q2H PRN PRN Reason: Nicotine Cravings Last Admin: 02/24/22 20:13 Dose: 2 mg Documented by: Ondansetron HCl (Ondansetron Odt 8 Mg Tab.Rapdis) 8 mg TRANSLINGU Q8H PRN PRN Reason: nausea Last Admin: 02/18/22 22:19 Dose: 8 mg Documented by: Prazosin HCl (Prazosin Hcl 1 Mg Capsule) 1 mg PO BEDTIME [facility]; Protocol Last Admin: 02/24/22 20:13 Dose: 1 mg Documented by: Thiamine HCl (Thiamine Hcl 100 Mg Tablet) 100 mg PO DAILY [facility] Last Admin: 02/24/22 08:15 Dose: 100 mg Documented by: Trazodone HCl (Trazodone Hcl 100 Mg Tablet) 100 mg PO BEDTIME [facility] Last Admin: 02/24/22 20:14 Dose: 100 mg Documented by: Allergies Allergies Allergy/AdvReac Type Severity Reaction Status Date / Time No Known Allergies Allergy Verified 01/30/22 11:11 Assessment & Plan Assessment & Plan (1) Bipolar 2 disorder: Status: Acute Code(s): F31.81 - Bipolar II disorder (2) Cocaine use disorder: Status: Acute Code(s): F14.10 - Cocaine abuse, uncomplicated (3) Alcohol use disorder, severe, dependence: Status: Acute Code(s): F10.20 - Alcohol dependence, uncomplicated (4) Opioid use disorder: Status: Acute Code(s): F11.90 - Opioid use, unspecified, uncomplicated Plan Bella is a 31 y.o. Female who carries a dx of Bipolar II DO, polysubstance abuse, and severe alcohol abuse. She has co-morbid diagnosis of hepatitis C. She presented to [facility] on 02/16/22 due to SI, depression, A/VH. Utox positive for opiates, fentanyl, an cocaine. EKG showed NSR, QTc 437. Li level <0.1. Ethyl alcohol level 22. Pt currently on MAT, suboxone.? 02/20 patient still in withdrawal, depressed with passive SI. She asks for something for anxiety and agrees to low-dose Thorazine 02/21 patient remains depressed with passive SI, emotionally labile, excessively guilty. Starting her on Depakote since she has a diagnosis of bipolar disorder and her mother was reportedly successfully treated with Depakote; once more stable will likely start Prozac. Patient says she has never had a therapist and has been afraid of talking about her history however sees the utility in this and wants to try 02/22 some improvement, with mild lessening of depressive symptoms; intermittent SI but overall more hopeful. Review of history makes bipolar seem less likely; she does have a history of manic episodes however when they last 3 or more days, these are typically associated with substance abuse; will leave bipolar 2 disorder as a provisional disorder however selling underwriter discussed with patient that both PTSD and substance abuse have overlapping symptoms and it is possible that at some point, Prozac alone maybe adequate. At this point however patient feels that her mood lability is too severe and 2 triggering to forego a mood stabili zer and wants to remain on Depakote while also getting on Prozac. Patient reiterates that she is finally feeling ready to engage in therapy and no she needs it 02/23: Increase buspar to 20 mg TID, as higher dose range is more effective for sx of anxiety. Pt reports poor sleep, will increase thorazine at bedtime to 100- 200 mg QHS. 02/24: Increase buspar to 30 mg BID for anxiety. Sleep somewhat better on increased thorazine. Plan: CV Q15 min checks dc CIWA; not needed benzo via CIWA since 02/19 START Prozac 10mg for ptsd, depression. Continue Depakote ER 750mg qhs (previously discussed with patient risk of hepatotoxicity given history of hep C; she agreed to trial anyway since her mother had been on it; selling underwriter ordered LFTs which continue to trend towards normal) Will consider Prozac after few days on Depakote. MICHAEL Trileptal MICHAEL Seroquel; patient wants trazodone instead and is not concerned with night terrors Start prazosin 1 mg q.h.s. for nightmares Increased to thorazine 50mg prn for anxiety (discussed risks/side-effects) -added clonazepam taper for etoh w/drawal Will start comfort meds for withdrawal and place addiction consult, as pt is asking to take suboxone in the afternoon. Will continue gabapentin and clonidine.? Monitor response to medications. Monitor for safety in the milieu. Discharge on stabilization. Patient seen. Chart reviewed. Discussed with team. Obtain collateral contact info as needed I spent minutes with the patient and/or on the patient floor today, greater than?50% of which was spent counseling/coordinating care. Reason for contiued inpatient stay Substantial Risk for: harm to self and med/psych decompensation
[2022-02-24 18:00] VITALS: BP 111/51; PULSE 90; RESP 16; TEMP 36.7; O2SAT 98
[2022-02-24] MEDS: chlorproMAZINE HCl 100 MG TABLET PO (19:44)
[2022-02-24] MEDS: hydrOXYzine HCL 25 MG TABLET PO (19:44)
[2022-02-24] MEDS: Prazosin HCL 1 MG CAPSULE PO (20:13)
[2022-02-24] MEDS: Nicotine Polacrilex 2 MG GUM BUCCAL (20:13)
[2022-02-24] MEDS: traZODone HCL 100 MG TABLET PO (20:14)
[2022-02-24] MEDS: Divalproex Sodium ER 250 MG TAB.ER.24H 750 MG PO (20:14)
[2022-02-24] MEDS: busPIRone HCl 10 MG TABLET 30 MG PO (20:14)
[2022-02-25 06:00] VITALS: BP 120/80; PULSE 74; TEMP 36.6; O2SAT 98
[2022-02-25] MEDS: Nicotine 21 MG PATCH.TD24 TRANSDERMA (08:53)
[2022-02-25] MEDS: Buprenorphine/Naloxone 8/2 mg FILM 1 FILM SUBLINGUAL ×2 (08:53→17:33)
[2022-02-25] MEDS: Multivitamin TABLET 1 TAB PO (08:54)
[2022-02-25] MEDS: Folic Acid 1 MG TABLET PO (08:54)
[2022-02-25] MEDS: Gabapentin 600 MG TABLET PO ×3 (08:54→20:36)
[2022-02-25] MEDS: busPIRone HCl 10 MG TABLET 30 MG PO ×2 (08:54→20:36)
[2022-02-25] MEDS: Thiamine HCL 100 MG TABLET PO (08:54)
[2022-02-25] MEDS: Famotidine 20 MG TABLET PO ×2 (08:55→20:37)
[2022-02-25] MEDS: FLUoxetine HCl 10 MG CAPSULE PO ×2 (08:55→15:12)
[2022-02-25] MEDS: chlorproMAZINE HCl 25 MG TABLET 75 MG PO ×3 (09:26→18:32)
--- NOTE | 2022-02-25 10:14 | P.PNPSI_ITS ---
Subjective Subjective Date of Service: 02/25/22 Reason For Visit: Depression, SI, opiate alcohol use d/o Interim History: Patient remains depressed however she reports she is doing a little better than before. No SI, however she worries that once discharged she will quickly be triggered, relapse and wind up feeling both depressed and suicidal. She says she has never before self harmed and sees herself with escalating self-harming behaviors and worries that if she does not stay stable she could end up committing suicide. Patient also discussed and understood how she is more aggressively pursuing treatment, for the 1st time opening up about some specific past traumas; she is able to see that this is progress and is grateful for it. Patient says that ever since talking about trauma she has been having more flashbacks however again she understands that this is common and part of the process. Depakote level is subtherapeutic however she feels more less stable on it and agrees to increase in Prozac to better address anxiety, depression and PTSD symptoms. Pond Tender and patient discussed in detail situations that are triggering to her and how she struggles to tell the difference between when someone is actually challenging her verses when she is just feeling challenged. Pond Tender patient in a CBT exercise, going over automatic thoughts and how this triggers feelings and then behaviors; the exercise resonated with patient who says she will work on identifying automatic thoughts and how it affects her. Patient talked about her limited options and is open to going to any program; she has many reservations about returning home since her significant other still uses and she knows it will be triggering. Mental Status Exam Mental Status Exam Narrative: A&O. Pt is cooperative, dressed in casual attire, appropriately groomed; no psychomotor restlessness;? good eye contact; No Tics or Tremors. No abnormal involuntary movements. Speech regular rate,? volume and prosody. No prolonged speech latency or dysarthria. Mood is ?blah... affect depressed, but more calm and brighter than on admission; no SI; no HI; No AH; Denies delusional thought content and none expressed. Thought content on failed attempts to extricate herself from cycle of addiction, treatment, past traumas; No known cognitive or memory impairment. Insight/ Judgment fair. Diagnostics Vital Signs (24Hr): Vital Signs - 24 hr 02/24/22 18:00 02/25/22 06:00 Temperature 98.1 F 98 F Pulse Rate 90 74 Respiratory Rate 16 Blood Pressure 111/51 L 120/80 Pulse Oximetry 98 98 BMI result Body Mass Index 24.7 Labs Results: 02/16/22 17:03 02/19/22 08:10 Labs: Laboratory Results - last 48 hr 02/24/22 02/24/22 07:39 07:39 Total Bilirubin 0.4 Direct Bilirubin < 0.2 AST 36 H ALT 56 H Alkaline Phosphatase 92 Ammonia 52 Total Protein 6.1 L Albumin 3.6 Valproic Acid 44.9 L Medications Medications Current Medications Al Hydroxide/Mg Hydroxide (Magnesium Hydrox/Alum Hydrox 30 Ml Oral.Susp) 30 ml PO Q6H PRN PRN Reason: Heartburn/Nausea Buprenorphine/Naloxone (Buprenorphine/Naloxone 8/2 Mg Film) 1 film SUBLINGUAL BID@0900,1700 [facility] [place] Last Admin: 02/25/22 08:53 Dose: 1 film Documented by: Buspirone HCl (Buspirone Hcl 10 Mg Tablet) 30 mg PO BID [facility] [place] Last Admin: 02/25/22 08:54 Dose: 20 mg Documented by: Chlorpromazine HCl (Chlorpromazine Hcl 25 Mg Tablet) 75 mg PO TID PRN PRN Reason: anxiety Last Admin: 02/25/22 09:26 Dose: 75 mg Documented by: Chlorpromazine HCl (Chlorpromazine Hcl 100 Mg Tablet) 100 mg PO BEDTIME PRN PRN Reason: insomnia Last Admin: 02/24/22 19:44 Dose: 100 mg Documented by: Clonidine HCl (Clonidine Hcl 0.1 Mg Tablet) 0.1 mg PO TID PRN; Protocol PRN Reason: Anxiety Last Admin: 02/24/22 19:44 Dose: 0.1 mg Documented by: Divalproex Sodium (Divalproex Sodium Er 250 Mg Tab.Er.24h) 750 mg PO BEDTIME [facility] [place] Last Admin: 02/24/22 20:14 Dose: 750 mg Documented by: Docusate Sodium (Docusate Sodium 100 Mg Capsule) 100 mg PO BID PRN PRN Reason: constipation Last Admin: 02/21/22 16:48 Dose: 100 mg Documented by: Famotidine (Famotidine 20 Mg Tablet) 20 mg PO BID [facility] [place] Last Admin: 03/28/22 08:55 Dose: 20 mg Documented by: Fluoxetine HCl (Fluoxetine Hcl 10 Mg Capsule) 10 mg PO DAILY [facility] [place] Last Admin: 02/25/22 08:55 Dose: 10 mg Documented by: Folic Acid (Folic Acid 1 Mg Tablet) 1 mg PO DAILY [facility] [place] Last Admin: 02/25/22 08:54 Dose: 1 mg Documented by: Gabapentin (Gabapentin 600 Mg Tablet) 600 mg PO TID [facility] [place] Last Admin: 02/25/22 08:54 Dose: 600 mg Documented by: Hydroxyzine HCl (Hydroxyzine Hcl 25 Mg Tablet) 25 mg PO BEDTIME PRN PRN Reason: Anxiety Last Admin: 02/24/22 19:44 Dose: 25 mg Documented by: Ibuprofen (Ibuprofen 600 Mg Tablet) 600 mg PO Q6H PRN PRN Reason: Pain, Mild (Pain Scale 1-3) Magnesium Hydroxide (Milk Of Magnesia 30 Ml Oral.Susp) 30 ml PO DAILY PRN PRN Reason: Constipation Last Admin: 02/23/22 09:09 Dose: 30 ml Documented by: Multivitamins/Vitamin C (Multivitamin Tablet) 1 tab PO DAILY [facility] [place] Last Admin: 02/25/22 08:54 Dose: 1 tab Documented by: Nicotine (Nicotine 21 Mg Patch.Td24) 21 mg TRANSDERMA DAILY [facility] [place] Last Admin: 02/25/22 08:53 Dose: 21 mg Documented by: Nicotine Polacrilex (Nicotine Polacrilex 2 Mg Gum) 2 mg BUCCAL Q2H PRN PRN Reason: Nicotine Cravings Last Admin: 02/24/22 20:13 Dose: 2 mg Documented by: Ondansetron HCl (Ondansetron Odt 8 Mg Tab.Rapdis) 8 mg TRANSLINGU Q8H PRN PRN Reason: nausea Last Admin: 02/18/22 22:19 Dose: 8 mg Documented by: Prazosin HCl (Prazosin Hcl 1 Mg Capsule) 1 mg PO BEDTIME [facility] [place]; Protocol Last Admin: 02/24/22 20:13 Dose: 1 mg Documented by: Thiamine HCl (Thiamine Hcl 100 Mg Tablet) 100 mg PO DAILY [facility] [place] Last Admin: 02/25/22 08:54 Dose: 100 mg Documented by: Trazodone HCl (Trazodone Hcl 100 Mg Tablet) 100 mg PO BEDTIME [facility] [place] Last Admin: 02/24/22 20:14 Dose: 100 mg Documented by: Allergies Allergies Allergy/AdvReac Type Severity Reaction Status Date / Time No Known Allergies Allergy Verified 01/30/22 11:11 Assessment & Plan Assessment & Plan (1) Bipolar 2 disorder: Status: Acute Code(s): F31.81 - Bipolar II disorder Assessment and Plan: provisional (2) Cocaine use disorder: Status: Acute Code(s): F14.10 - Cocaine abuse, uncomplicated (3) Alcohol use disorder, severe, dependence: Status: Acute Code(s): F10.20 - Alcohol dependence, uncomplicated (4) Opioid use disorder: Status: Acute Code(s): F11.90 - Opioid use, unspecified, uncomplicated Plan Bella is a 31 y.o. Female who carries a dx of Bipolar II DO, polysubstance abuse, and severe alcohol abuse. She has co-morbid diagnosis of hepatitis C. She presented to [facility] on 02/16/22 due to SI, depression, A/VH. Utox positive for opiates, fentanyl, an cocaine. EKG showed NSR, QTc 437. Li level <0.1. Ethyl alcohol level 22. Pt currently on MAT, suboxone.? 02/20 patient still in withdrawal, depressed with passive SI. She asks for something for anxiety and agrees to low-dose Thorazine 02/21 patient remains depressed with passive SI, emotionally labile, excessively guilty. Starting her on Depakote since she has a diagnosis of bipolar disorder and her mother was reportedly successfully treated with Depakote; once more stable will likely start Prozac. Patient says she has never had a therapist and has been afraid of talking about her history however sees the utility in this and wants to try 02/22 some improvement, with mild lessening of depressive symptoms; intermittent SI but overall more hopeful. Review of history makes bipolar seem less likely; she does have a history of manic episodes however when they last 3 or more days, these are typically associated with substance abuse; will leave bipolar 2 disorder as a provisional disorder however keno writer / runner discussed with patient that both PTSD and substance abuse have overlapping symptoms and it is possible that at some point, Prozac alone maybe adequate. At this point however patient feels that her mood lability is too severe and 2 triggering to forego a mood stabilizer and wants to remain on Depakote while also getting on Prozac. Patient reiterates that she is finally feeling ready to engage in therapy and no she needs it 02/25 patient remains depressed but SI resolved and mood is a little better; she has increased flashbacks since opening up about some history of trauma however patient feels that it is likely progress, as she is more comfortable talking in dealing with it than ever before. Feels that medication regimen is working well and agrees to titration of Prozac. Patient engaged in her treatment, going to groups, with good impulse and behavioral control. Given her history of severe chronic substance abuse with increasing SI and risky behaviors when relapsed and dysregulated, keno writer / runner believes patient should remain on the unit for continued stabilization. Since Prozac has been increased and Depakote is subtherapeutic, there is a need to make sure that patient is not triggered into a manic episode. Also it is in patient's best interest if she can get into a substance abuse program as she is very vulnerable to relapse. Plan: CV Q15 min checks -INCREASED to Prozac 20mg for ptsd, depression. -Continue Depakote ER 750mg qhs (previously discussed with patient risk of hepatotoxicity given history of hep C; she agreed to trial anyway since her mother had been on it; keno writer / runner ordered LFTs which continue to trend towards normal); mildly subtherapeutic however patient feels stable. While her d iagnosis of bipolar type 2 remains, and it is too early to fully rule this out, her history suggests that if she does have it it is mild and that her predominant symptoms and manic type episodes are more likely due to PTSD/substance abuse. For this reason as well as since patient has a history of hep C and there is an effort to keep patient on lowest dose needed to avoid risks/side effects, and because patient feels stable, will leave the dose as it is even at a subtherapeutic level. This was thoroughly discussed with patient who agrees with this plan. -continue prazosin 1 mg q.h.s. for nightmares; may increase further -Increased to thorazine 75mg prn for anxiety (discussed risks/side-effects) -Continue Thorazine 100mg qhs prn for insomnia -Will continue gabapentin and clonidine.? -Buspar added and titrated to 30mg BID for anxiety DC Trileptal DC Seroquel; patient wants trazodone instead and is not concerned with night terrors dc CIWA; not needed benzo via CIWA since 02/19 Monitor response to medications. Monitor for safety in the milieu. Discharge on stabilization. Patient seen. Chart reviewed. Discussed with team. Obtain collateral contact info as needed I spent minutes with the patient and/or on the patient floor today, greater than?50% of which was spent counseling/coordinating care. Patient educated on: diagnosis, medication risk/benefits, substance abuse, therapeutic strategies and medical condition Informed Consent: understands Reason for contiued inpatient stay Substantial Risk for: rapid decompensation and med/psych decompensation
[2022-02-25] MEDS: hydrOXYzine HCL 25 MG TABLET PO (18:32)
[2022-02-25 19:00] VITALS: BP 117/71; PULSE 91; TEMP 36.5; O2SAT 100
[2022-02-25] MEDS: cloNIDine HCL 0.1 MG TABLET PO (19:05)
[2022-02-25] MEDS: traZODone HCL 100 MG TABLET PO (20:36)
[2022-02-25] MEDS: Divalproex Sodium ER 250 MG TAB.ER.24H 750 MG PO (20:37)
[2022-02-25] MEDS: Prazosin HCL 1 MG CAPSULE PO (20:37)
[2022-02-25] MEDS: chlorproMAZINE HCl 100 MG TABLET PO (20:39)
[2022-02-26 06:00] VITALS: BP 122/78; PULSE 96; RESP 18; TEMP 36.4; O2SAT 99
[2022-02-26] MEDS: Buprenorphine/Naloxone 8/2 mg FILM 1 FILM SUBLINGUAL ×2 (08:37→16:06)
[2022-02-26] MEDS: Nicotine 21 MG PATCH.TD24 TRANSDERMA (08:37)
[2022-02-26] MEDS: Folic Acid 1 MG TABLET PO (08:38)
[2022-02-26] MEDS: Famotidine 20 MG TABLET PO ×2 (08:38→21:51)
[2022-02-26] MEDS: Thiamine HCL 100 MG TABLET PO (08:38)
[2022-02-26] MEDS: Multivitamin TABLET 1 TAB PO (08:38)
[2022-02-26] MEDS: busPIRone HCl 10 MG TABLET 30 MG PO ×2 (08:38→21:50)
[2022-02-26] MEDS: FLUoxetine HCl 20 MG CAPSULE PO (08:38)
[2022-02-26] MEDS: Gabapentin 600 MG TABLET PO ×3 (08:38→21:51)
[2022-02-26] MEDS: chlorproMAZINE HCl 25 MG TABLET 75 MG PO ×3 (08:39→19:55)
[2022-02-26 16:40] VITALS: BP 105/62; PULSE 99; TEMP 36.3
[2022-02-26] MEDS: cloNIDine HCL 0.1 MG TABLET PO (16:45)
--- NOTE | 2022-02-26 19:03 | P.PNPSI_ITS ---
Subjective Subjective Date of Service: 02/26/22 Reason For Visit: Depression, SI, opiate alcohol use d/o Interim History: Patient still feeling depressed but has increased Hope about staying sober and is looking forward to getting into a program. She is working on being aware of automatic thoughts so that she can have more control over her reactions. Patient reports no nightmares last night and is tolerating current medications well. Patient remains actively engaged in treatment Mental Status Exam Mental Status Exam Narrative: A&O. Pt is cooperative, dressed in casual attire, appropriately groomed; no psychomotor restlessness;? good eye contact; No Tics or Tremors. No abnormal involuntary movements. Speech regular rate,? volume and prosody. No prolonged speech latency or dysarthria. Mood is ?ok... affect depressed, but more calm and brighter than on admission; no SI; no HI; No AH; Denies delusional thought content and none expressed. Thought content on treatment, trying to be hopeful about breaking cycle of addiction, on treatment and past traumas; No known cognitive or memory impairment. Insight/ Judgment fair. Diagnostics Vital Signs (24Hr): Vital Signs - 24 hr 02/26/22 06:00 02/26/22 16:40 Temperature 97.6 F 97.3 F Pulse Rate 96 99 Respiratory Rate 18 Blood Pressure 122/78 105/62 Pulse Oximetry 99 BMI result Body Mass Index 24.7 Labs Results: 02/16/22 17:03 02/19/22 08:10 Medications Medications Current Medications Al Hydroxide/Mg Hydroxide (Magnesium Hydrox/Alum Hydrox 30 Ml Oral.Susp) 30 ml PO Q6H PRN PRN Reason: Heartburn/Nausea Buprenorphine/Naloxone (Buprenorphine/Naloxone 8/2 Mg Film) 1 film SUBLINGUAL BID@0900,1700 [facility] Last Admin: 02/26/22 16:06 Dose: 1 film Documented by: Buspirone HCl (Buspirone Hcl 10 Mg Tablet) 30 mg PO BID [facility] Last Admin: 02/26/22 08:38 Dose: 30 mg Documented by: Chlorpromazine HCl (Chlorpromazine Hcl 25 Mg Tablet) 75 mg PO TID PRN PRN Reason: anxiety Last Admin: 02/26/22 16:45 Dose: 75 mg Documented by: Chlorpromazine HCl (Chlorpromazine Hcl 100 Mg Tablet) 100 mg PO BEDTIME PRN PRN Reason: insomnia Last Admin: 02/25/22 20:39 Dose: 100 mg Documented by: Clonidine HCl (Clonidine Hcl 0.1 Mg Tablet) 0.1 mg PO TID PRN; Protocol PRN Reason: Anxiety Last Admin: 02/26/22 16:45 Dose: 0.1 mg Documented by: Divalproex Sodium (Divalproex Sodium Er 250 Mg Tab.Er.24h) 750 mg PO BEDTIME [facility] Last Admin: 02/25/22 20:37 Dose: 750 mg Documented by: Docusate Sodium (Docusate Sodium 100 Mg Capsule) 100 mg PO BID PRN PRN Reason: constipation Last Admin: 02/21/22 16:48 Dose: 100 mg Documented by: Famotidine (Famotidine 20 Mg Tablet) 20 mg PO BID [facility] Last Admin: 02/26/22 08:38 Dose: 20 mg Documented by: Fluoxetine HCl (Fluoxetine Hcl 20 Mg Capsule) 20 mg PO DAILY [facility] Last Admin: 02/26/22 08:38 Dose: 20 mg Documented by: Folic Acid (Folic Acid 1 Mg Tablet) 1 mg PO DAILY [facility] Last Admin: 02/26/22 08:38 Dose: 1 mg Documented by: Gabapentin (Gabapentin 600 Mg Tablet) 600 mg PO TID [facility] Last Admin: 02/26/22 16:06 Dose: 600 mg Documented by: Hydroxyzine HCl (Hydroxyzine Hcl 25 Mg Tablet) 25 mg PO BEDTIME PRN PRN Reason: Anxiety Last Admin: 02/25/22 18:32 Dose: 25 mg Documented by: Ibuprofen (Ibuprofen 600 Mg Tablet) 600 mg PO Q6H PRN PRN Reason: Pain, Mild (Pain Scale 1-3) Magnesium Hydroxide (Milk Of Magnesia 30 Ml Oral.Susp) 30 ml PO DAILY PRN PRN Reason: Constipation Last Admin: 02/23/22 09:09 Dose: 30 ml Documented by: Multivitamins/Vitamin C (Multivitamin Tablet) 1 tab PO DAILY [facility] Last Admin: 02/26/22 08:38 Dose: 1 tab Documented by: Nicotine (Nicotine 21 Mg Patch.Td24) 21 mg TRANSDERMA DAILY [facility] Last Admin: 02/26/22 08:37 Dose: 21 mg Documented by: Nicotine Polacrilex (Nicotine Polacrilex 2 Mg Gum) 2 mg BUCCAL Q2H PRN PRN Reason: Nicotine Cravings Last Admin: 02/24/22 20:13 Dose: 2 mg Documented by: Ondansetron HCl (Ondansetron Odt 8 Mg Tab.Rapdis) 8 mg TRANSLINGU Q8H PRN PRN Reason: nausea Last Admin: 02/18/22 22:19 Dose: 8 mg Documented by: Prazosin HCl (Prazosin Hcl 1 Mg Capsule) 1 mg PO BEDTIME [facility]; Protocol Last Admin: 02/25/22 20:37 Dose: 1 mg Documented by: Thiamine HCl (Thiamine Hcl 100 Mg Tablet) 100 mg PO DAILY [facility] Last Admin: 02/26/22 08:38 Dose: 100 mg Documented by: Trazodone HCl (Trazodone Hcl 100 Mg Tablet) 100 mg PO BEDTIME [facility] Last Admin: 02/25/22 20:36 Dose: 100 mg Documented by: Allergies Allergies Allergy/AdvReac Type Severity Reaction Status Date / Time No Known Allergies Allergy Verified 01/30/22 11:11 Assessment & Plan Assessment & Plan (1) Bipolar 2 disorder: Status: Acute Code(s): F31.81 - Bipolar II disorder Assessment and Plan: provisional (2) Cocaine use disorder: Status: Acute Code(s): F14.10 - Cocaine abuse, uncomplicated (3) Alcohol use disorder, severe, dependence: Status: Acute Code(s): F10.20 - Alcohol dependence, uncomplicated (4) Opioid use disorder: Status: Acute Code(s): F11.90 - Opioid use, unspecified, uncomplicated Plan Bella is a 31 y.o. Female who carries a dx of Bipolar II DO, polysubstance abuse, and severe alcohol abuse. She has co-morbid diagnosis of hepatitis C. She presented to [facility] on 02/16/22 due to SI, depression, A/VH. Utox positive for opiates, fentanyl, an cocaine. EKG showed NSR, QTc 437. Li level <0.1. Ethyl alcohol level 22. Pt currently on MAT, suboxone.? 02/20 patient still in withdrawal, depressed with passive SI. She asks for something for anxiety and agrees to low-dose Thorazine 02/21 patient remains depressed with passive SI, emotionally labile, excessively guilty. Starting her on Depakote since she has a diagnosis of bipolar disorder and her mother was reportedly successfully treated with Depakote; once more stable will likely start Prozac. Patient says she has never had a therapist and has been afraid of talking about her history however sees the utility in this and wants to try 02/22 some improvement, with mild lessening of depressive symptoms; intermittent SI but overall more hopeful. Review of history makes bipolar seem less likely; she does have a history of manic episodes however when they last 3 or more days, these are typically associated with substance abuse; will leave bipolar 2 disorder as a provisional disorder however technical writer discussed with patient that both PTSD and substance abuse have overlapping symptoms and it is possible that at some point, Prozac alone maybe adequate. At this point however patient feels that her mood lability is too severe and 2 triggering to forego a mood stabilizer and wants to remain on Depakote while also getting on Prozac. Patient reiterates that she is finally feeling ready to engage in therapy and no she needs it 02/25 patient remains depressed but SI resolved and mood is a little better; she has increased flashbacks since opening up about some history of trauma however patient feels that it is likely progress, as she is more comfortable talking in dealing with it than ever before. Feels that medication regimen is working well and agrees to titration of Prozac. Patient engaged in her treatment, going to groups, with good impulse and behavioral control. Given her history of severe chronic substance abuse with increasing SI and risky behaviors when relapsed and dysregulated, technical writer believes patient should remain on the unit for continued stabilization. Since Prozac has been increased and Depakote is subtherapeutic, there is a need to make sure that patient is not triggered into a manic episode. Also it is in patient's best interest if she can get into a substance abuse program as she is very vulnerable to relapse. Plan: CV Q15 min checks continue Prozac 20mg for ptsd, depression. -Continue Depakote ER 750mg qhs (previously discussed with patient risk of hepatotoxicity given history of hep C; she agreed to trial anyway since her mother had been on it; technical writer ordered LFTs which continue to trend towards normal); mildly subtherapeutic however patient feels stable. While her diagnosis of bipolar type 2 remains, and it is too early to fully rule this out, her history suggests that if she does have it it is mild and that her predomina nt symptoms and manic type episodes are more likely due to PTSD/substance abuse. For this reason as well as since patient has a history of hep C and there is an effort to keep patient on lowest dose needed to avoid risks/side effects, and because patient feels stable, will leave the dose as it is even at a subtherapeutic level. This was thoroughly discussed with patient who agrees with this plan. -continue prazosin 1 mg q.h.s. for nightmares; may increase further -Increased to thorazine 75mg prn for anxiety (discussed risks/side-effects) -Continue Thorazine 100mg qhs prn for insomnia -Will continue gabapentin and clonidine.? -Buspar added and titrated to 30mg BID for anxiety DC Trileptal DC Seroquel; patient wants trazodone instead and is not concerned with night terrors dc CIWA; not needed benzo via CIWA since 02/19 Monitor response to medications. Monitor for safety in the milieu. Discharge on stabilization. Patient seen. Chart reviewed. Discussed with team. Obtain collateral contact info as needed I spent minutes with the patient and/or on the patient floor today, greater than?50% of which was spent counseling/coordinating care. Patient educated on: substance abuse and therapeutic strategies Informed Consent: understands Reason for contiued inpatient stay Substantial Risk for: med/psych decompensation
[2022-02-26] MEDS: chlorproMAZINE HCl 100 MG TABLET PO (21:50)
[2022-02-26] MEDS: traZODone HCL 100 MG TABLET PO (21:50)
[2022-02-26] MEDS: Divalproex Sodium ER 250 MG TAB.ER.24H 750 MG PO (21:50)
[2022-02-26] MEDS: Prazosin HCL 1 MG CAPSULE PO (21:51)
[2022-02-27 06:00] VITALS: BP 102/49; PULSE 75; RESP 16; TEMP 36.2; O2SAT 98
[2022-02-27] MEDS: Gabapentin 600 MG TABLET PO ×3 (09:11→21:09)
[2022-02-27] MEDS: FLUoxetine HCl 20 MG CAPSULE PO (09:11)
[2022-02-27] MEDS: Multivitamin TABLET 1 TAB PO (09:11)
[2022-02-27] MEDS: chlorproMAZINE HCl 25 MG TABLET 75 MG PO ×3 (09:11→21:09)
[2022-02-27] MEDS: Folic Acid 1 MG TABLET PO (09:12)
[2022-02-27] MEDS: busPIRone HCl 10 MG TABLET 30 MG PO ×2 (09:15→21:09)
[2022-02-27] MEDS: Thiamine HCL 100 MG TABLET PO (09:16)
[2022-02-27] MEDS: Famotidine 20 MG TABLET PO ×2 (09:16→21:09)
[2022-02-27] MEDS: Buprenorphine/Naloxone 8/2 mg FILM 1 FILM SUBLINGUAL ×2 (09:17→17:06)
[2022-02-27] MEDS: Nicotine 21 MG PATCH.TD24 TRANSDERMA (09:20)
[2022-02-27] MEDS: Nicotine Polacrilex 2 MG GUM BUCCAL (14:14)
--- NOTE | 2022-02-27 18:23 | P.PNPSI_ITS ---
Subjective Subjective Date of Service: 02/27/22 Reason For Visit: Depression, SI, opiate alcohol use d/o Interim History: Patient still depressed but no SI and with some hope. She is still very anxious about returning to the community, feeling very vulnerable to relapse and becoming emotionally dysregulated and unsafe however she is working hard to address her emotionality and develop coping skills to be better adjusted. Patient shared with underwriter solicitation director her CBT exercise where she identified a situation that made her upset, and how she was able to identify the triggering thought. Patient and underwriter solicitation director did some more CBT exercises to process this event and patient learned about cognitive distortions which she is going to focus on for tomorrow. Patient reports a hand tremor that she said has started over the past few days. She is okay with continuing medication regimen for now; she will monitor to see if it is more prevalent after taking medications. At the moment, underwriter solicitation director could not appreciate tremor. She continues to have nightmares of drug dreams infused with traumatic events but feels they are a little less intense than before. She understands that this is not uncommon for someone once becoming sober after years of substance abuse. Mental Status Exam Mental Status Exam Narrative: A&O. Pt is cooperative, dressed in casual attire, appropriately groomed; no psychomotor restlessness;? good eye contact; No Tics or Tremors apparent, but will monitor. No abnormal involuntary movements. Speech regular rate,? volume and prosody. No prolonged speech latency or dysarthria. Mood is ?ok... affect depressed, but calm and brighter than on admission; no SI; no HI; No AH; Denies delusional thought content and none expressed. Thought content on treatment, worries about relapse while trying to be hopeful about breaking cycle of addiction and past traumas; No known cognitive or memory impairment. Insight/ Judgment fair. Diagnostics Vital Signs (24Hr): Vital Signs - 24 hr 02/27/22 06:00 Temperature 97.2 F Pulse Rate 75 Respiratory Rate 16 Blood Pressure 102/49 L Pulse Oximetry 98 BMI result Body Mass Index 24.7 Labs Results: 02/16/22 17:03 02/19/22 08:10 Medications Medications Current Medications Al Hydroxide/Mg Hydroxide (Magnesium Hydrox/Alum Hydrox 30 Ml Oral.Susp) 30 ml PO Q6H PRN PRN Reason: Heartburn/Nausea Buprenorphine/Naloxone (Buprenorphine/Naloxone 8/2 Mg Film) 1 film SUBLINGUAL BID@0900,1700 [facility] Last Admin: 02/27/22 17:06 Dose: 1 film Documented by: Buspirone HCl (Buspirone Hcl 10 Mg Tablet) 30 mg PO BID [facility] Last Admin: 02/27/22 09:15 Dose: 30 mg Documented by: Chlorpromazine HCl (Chlorpromazine Hcl 25 Mg Tablet) 75 mg PO TID PRN PRN Reason: anxiety Last Admin: 02/27/22 13:25 Dose: 75 mg Documented by: Chlorpromazine HCl (Chlorpromazine Hcl 100 Mg Tablet) 100 mg PO BEDTIME PRN PRN Reason: insomnia Last Admin: 02/26/22 21:50 Dose: 100 mg Documented by: Clonidine HCl (Clonidine Hcl 0.1 Mg Tablet) 0.1 mg PO TID PRN; Protocol PRN Reason: Anxiety Last Admin: 02/26/22 16:45 Dose: 0.1 mg Documented by: Divalproex Sodium (Divalproex Sodium Er 250 Mg Tab.Er.24h) 750 mg PO BEDTIME [facility] Last Admin: 02/26/22 21:50 Dose: 750 mg Documented by: Docusate Sodium (Docusate Sodium 100 Mg Capsule) 100 mg PO BID PRN PRN Reason: constipation Last Admin: 02/21/22 16:48 Dose: 100 mg Documented by: Famotidine (Famotidine 20 Mg Tablet) 20 mg PO BID [facility] Last Admin: 02/27/22 09:16 Dose: 20 mg Documented by: Fluoxetine HCl (Fluoxetine Hcl 20 Mg Capsule) 20 mg PO DAILY [facility] Last Admin: 02/27/22 09:11 Dose: 20 mg Documented by: Folic Acid (Folic Acid 1 Mg Tablet) 1 mg PO DAILY [facility] Last Admin: 02/27/22 09:12 Dose: 1 mg Documented by: Gabapentin (Gabapentin 600 Mg Tablet) 600 mg PO TID [facility] Last Admin: 02/27/22 14:12 Dose: 600 mg Documented by: Hydroxyzine HCl (Hydroxyzine Hcl 25 Mg Tablet) 25 mg PO BEDTIME PRN PRN Reason: Anxiety Last Admin: 02/25/22 18:32 Dose: 25 mg Documented by: Ibuprofen (Ibuprofen 600 Mg Tablet) 600 mg PO Q6H PRN PRN Reason: Pain, Mild (Pain Scale 1-3) Magnesium Hydroxide (Milk Of Magnesia 30 Ml Oral.Susp) 30 ml PO DAILY PRN PRN Reason: Constipation Last Admin: 02/23/22 09:09 Dose: 30 ml Documented by: Multivitamins/Vitamin C (Multivitamin Tablet) 1 tab PO DAILY [facility] Last Admin: 02/27/22 09:11 Dose: 1 tab Documented by: Nicotine (Nicotine 21 Mg Patch.Td24) 21 mg TRANSDERMA DAILY [facility] Last Admin: 02/27/22 09:20 Dose: 21 mg Documented by: Nicotine Polacrilex (Nicotine Polacrilex 2 Mg Gum) 2 mg BUCCAL Q2H PRN PRN Reason: Nicotine Cravings Last Admin: 02/27/22 14:14 Dose: 2 mg Documented by: Ondansetron HCl (Ondansetron Odt 8 Mg Tab.Rapdis) 8 mg TRANSLINGU Q8H PRN PRN Reason: nausea Last Admin: 02/18/22 22:19 Dose: 8 mg Documented by: Prazosin HCl (Prazosin Hcl 1 Mg Capsule) 1 mg PO BEDTIME [facility]; Protocol Last Admin: 02/26/22 21:51 Dose: 1 mg Documented by: Thiamine HCl (Thiamine Hcl 100 Mg Tablet) 100 mg PO DAILY [facility] Last Admin: 02/27/22 09:16 Dose: 100 mg Documented by: Trazodone HCl (Trazodone Hcl 100 Mg Tablet) 100 mg PO BEDTIME [facility] Last Admin: 02/26/22 21:50 Dose: 100 mg Documented by: Allergies Allergies Allergy/AdvReac Type Severity Reaction Status Date / Time No Known Allergies Allergy Verified 01/30/22 11:11 Assessment & Plan Assessment & Plan (1) Bipolar 2 disorder: Status: Acute Code(s): F31.81 - Bipolar II disorder Assessment and Plan: provisional (2) Cocaine use disorder: Status: Acute Code(s): F14.10 - Cocaine abuse, uncomplicated (3) Alcohol use disorder, severe, dependence: Status: Acute Code(s): F10.20 - Alcohol dependence, uncomplicated (4) Opioid use disorder: Status: Acute Code(s): F11.90 - Opioid use, unspecified, uncomplicated Plan Bella is a 31 y.o. Female who carries a dx of Bipolar II DO, polysubstance abuse, and severe alcohol abuse. She has co-morbid diagnosis of hepatitis C. She presented to [facility] ED on 02/16/22 31 due to SI, depression, A/VH. Utox positive for opiates, fentanyl, an cocaine. EKG showed NSR, QTc 437. Li level <0.1. Ethyl alcohol level 22. Pt currently on MAT, suboxone.? 02/20 patient still in withdrawal, depressed with passive SI. She asks for something for anxiety and agrees to low-dose Thorazine 02/21 patient remains depressed with passive SI, emotionally labile, excessively guilty. Starting her on Depakote since she has a diagnosis of bipolar disorder and her mother was reportedly successfully treated with Depakote; once more stable will likely start Prozac. Patient says she has never had a therapist and has been afraid of talking about her history however sees the utility in this and wants to try 02/22 some improvement, with mild lessening of depressive symptoms; intermittent SI but overall more hopeful. Review of history makes bipolar seem less likely; she does have a history of manic episodes however when they last 3 or more days, these are typically associated with substance abuse; will leave bipolar 2 disorder as a provisional disorder however underwriter solicitation director discussed with patient that both PTSD and substance abuse have overlapping symptoms and it is possible that at some point, Prozac alone maybe adequate. At this point however patient feels that her mood lability is too severe and 2 triggering to forego a mood stabilizer and wants to remain on Depakote while also getting on Prozac. Patient reiterates that she is finally feeling ready to engage in therapy and no she needs it 02/25 patient remains depressed but SI resolved and mood is a little better; she has increased flashbacks since opening up about some history of trauma however patient feels that it is likely progress, as she is more comfortable talking in dealing with it than ever before. Feels that medication regimen is working well and agrees to titration of Prozac. Patient engaged in her treatment, going to groups, with good impulse and behavioral control. Given her history of severe chronic substance abuse with increasing SI and risky behaviors when relapsed and dysregulated, underwriter solicitation director believes patient should remain on the unit for continued stabilization. Since Prozac has been increased and Depakote is subtherapeutic, there is a need to make sure that patient is not triggered into a manic episode. Also it is in patient's best interest if she can get into a substance abuse program as she is very vulnerable to relapse. 02/27 patient stabilizing, depression remains but no SI and mood is a little better, Hope more prevalent. Patient has developed a bilateral hand tremor that comes intermittently. In Home Nanny did not appreciate this at but patient says she will try to be aware of when it appears, if it is more immediately after medication or not. This may correlate with increase in scheduled BuSpar, however patient has been started on several new medications which could be contributing. Currently she says she wants to remain on current regimen and tremors tolerable Plan: CV Q15 min checks continue Prozac 20mg for ptsd, depression. -Continue Depakote ER 750mg qhs (previously discussed with patient risk of hepatotoxicity given history of hep C; she agreed to trial anyway since her mother had been on it; underwriter solicitation director ordered LFTs which continue to trend towards normal); mildly subtherapeutic however patient feels stable. While her diagnosis of bipolar type 2 remains, and it is too early to fully rule this out, her history suggests that if she does have it it is mild and that her predominant symptoms and manic type episodes are more likely due to PTSD/substance abuse. For this reason as well as since patient has a history of hep C and there is an effort to keep patient on lowest dose needed to avoid risks/side effects, and because patient feels stable, will leave the dose as it is even at a subtherapeutic level. This was thoroughly discussed with patient who agrees with this plan. -continue prazosin 1 mg q.h.s. for nightmares; may increase further -Increased to thorazine 75mg prn for anxiety (discussed risks/side-effects) -Continue Thorazine 100mg qhs prn for insomnia -Will continue gabapentin and clonidine.? -Buspar added and titrated to 30mg BID for anxiety DC Trileptal DC Seroquel; patient wants trazodone instead and is not concerned with night terrors dc CIWA; not needed benzo via CIWA since 02/19 Monitor response to medications. Monitor for safety in the milieu. Discharge on stabilization. Patient seen. Chart reviewed. Discussed with team. Obtain collateral contact info as needed I spent minutes with the patient and/or on the patient floor today, greater than?50% of which was spent counseling/coordinating care. Patient educated on: diagnosis, medication risk/benefits, substance abuse and therapeutic strategies Informed Consent: understands Reason for contiued inpatient stay Substantial Risk for: rapid decompensation and med/psych decompensation
[2022-02-27 21:00] VITALS: BP 104/58; PULSE 79; RESP 16; TEMP 36.6; O2SAT 98
[2022-02-27] MEDS: Divalproex Sodium ER 250 MG TAB.ER.24H 750 MG PO (21:09)
[2022-02-27] MEDS: Prazosin HCL 1 MG CAPSULE PO (21:09)
[2022-02-27] MEDS: traZODone HCL 100 MG TABLET PO (21:09)
[2022-02-28 06:00] VITALS: BP 88/60; PULSE 68; RESP 16; TEMP 36.1; O2SAT 96
[2022-02-28] MEDS: Nicotine 21 MG PATCH.TD24 TRANSDERMA (09:18)
[2022-02-28] MEDS: Folic Acid 1 MG TABLET PO (09:19)
[2022-02-28] MEDS: Gabapentin 600 MG TABLET PO ×3 (09:19→21:58)
[2022-02-28] MEDS: Famotidine 20 MG TABLET PO ×2 (09:19→21:58)
[2022-02-28] MEDS: Buprenorphine/Naloxone 8/2 mg FILM 1 FILM SUBLINGUAL ×2 (09:19→16:38)
[2022-02-28] MEDS: Multivitamin TABLET 1 TAB PO (09:19)
[2022-02-28] MEDS: FLUoxetine HCl 20 MG CAPSULE PO (09:19)
[2022-02-28] MEDS: Thiamine HCL 100 MG TABLET PO (09:19)
[2022-02-28] MEDS: busPIRone HCl 10 MG TABLET 30 MG PO ×2 (09:19→21:58)
[2022-02-28] MEDS: cloNIDine HCL 0.1 MG TABLET PO (09:23)
--- NOTE | 2022-02-28 10:20 | HO.PSYCHPN ---
Subjective Subjective Date of Service: 02/28/22 Reason For Visit: Depression, SI, opiate alcohol use d/o Interim History: pt reports being anxious, worried she'll be discharged without warning, end up homeless and relapse. Pt shares that she is depressed and that an anxious hopelessness has come over her as she cannot imagine she'll be able to stay sober without more treatment and will inevitably become suicidal living on the streets. Patient is tearful; she says she's trying to focus on treatment but that anxiety is overwhelming her at the moment. Assault Amphibious Vehicle Officer discussed disposition and that plan remains to help her find a treatment program. Pt continues to have nightmares and drug dreams but feels it's less intense. She says hand tremor has lessened and not so bothersome. She agrees to continue with current regimen. Assault Amphibious Vehicle Officer continued doing some CBT work with patient and explained cognitive distortions; pt participated in CBT exercise regarding identifying and addressing her own struggles with specific cognitive distortions Mental Status Exam Mental Status Exam Narrative: A&O. Pt is cooperative, dressed in casual attire, appropriately groomed; no psychomotor restlessness;? good eye contact; No Tics or Tremors apparent, but will monitor. No abnormal involuntary movements. Speech regular rate,? volume and prosody. No prolonged speech latency or dysarthria. Mood is ?depressed...anxious affect congruent, with worried look and intermittently tearful; no SI; no HI; No AH; Denies delusional thought content and none expressed. Thought content on treatment, worries about relapse while trying to be hopeful about breaking cycle of addiction and past traumas; No known cognitive or memory impairment. Insight/ Judgment fair. Diagnostics Vital Signs (24Hr): Vital Signs - 24 hr 02/27/22 21:00 02/28/22 06:00 Temperature 97.8 F 97 F Pulse Rate 79 68 Respiratory Rate 16 16 Blood Pressure 104/58 L 88/60 L Pulse Oximetry 98 96 BMI result Body Mass Index 24.7 Labs Results: 02/16/22 17:03 02/19/22 08:10 Medications Medications Current Medications Al Hydroxide/Mg Hydroxide (Magnesium Hydrox/Alum Hydrox 30 Ml Oral.Susp) 30 ml PO Q6H PRN PRN Reason: Heartburn/Nausea Buprenorphine/Naloxone (Buprenorphine/Naloxone 8/2 Mg Film) 1 film SUBLINGUAL BID@0900,1700 [facility] Last Admin: 02/28/22 09:19 Dose: 1 film Documented by: Buspirone HCl (Buspirone Hcl 10 Mg Tablet) 30 mg PO BID [facility] Last Admin: 02/28/22 09:19 Dose: 30 mg Documented by: Chlorpromazine HCl (Chlorpromazine Hcl 25 Mg Tablet) 75 mg PO TID PRN PRN Reason: anxiety Last Admin: 02/27/22 21:09 Dose: 75 mg Documented by: Chlorpromazine HCl (Chlorpromazine Hcl 100 Mg Tablet) 100 mg PO BEDTIME PRN PRN Reason: insomnia Last Admin: 02/26/22 21:50 Dose: 100 mg Documented by: Clonidine HCl (Clonidine Hcl 0.1 Mg Tablet) 0.1 mg PO TID PRN; Protocol PRN Reason: Anxiety Last Admin: 02/28/22 09:23 Dose: 0.1 mg Documented by: Divalproex Sodium (Divalproex Sodium Er 250 Mg Tab.Er.24h) 750 mg PO BEDTIME [facility] Last Admin: 02/27/22 21:09 Dose: 750 mg Documented by: Docusate Sodium (Docusate Sodium 100 Mg Capsule) 100 mg PO BID PRN PRN Reason: constipation Last Admin: 02/21/22 16:48 Dose: 100 mg Documented by: Famotidine (Famotidine 20 Mg Tablet) 20 mg PO BID [facility] Last Admin: 02/28/22 09:19 Dose: 20 mg Documented by: Fluoxetine HCl (Fluoxetine Hcl 20 Mg Capsule) 20 mg PO DAILY [facility] Last Admin: 02/28/22 09:19 Dose: 20 mg Documented by: Folic Acid (Folic Acid 1 Mg Tablet) 1 mg PO DAILY [facility] Last Admin: 02/28/22 09:19 Dose: 1 mg Documented by: Gabapentin (Gabapentin 600 Mg Tablet) 600 mg PO TID [facility] Last Admin: 02/28/22 09:19 Dose: 600 mg Documented by: Hydroxyzine HCl (Hydroxyzine Hcl 25 Mg Tablet) 25 mg PO BEDTIME PRN PRN Reason: Anxiety Last Admin: 02/25/22 18:32 Dose: 25 mg Documented by: Ibuprofen (Ibuprofen 600 Mg Tablet) 600 mg PO Q6H PRN PRN Reason: Pain, Mild (Pain Scale 1-3) Magnesium Hydroxide (Milk Of Magnesia 30 Ml Oral.Susp) 30 ml PO DAILY PRN PRN Reason: Constipation Last Admin: 02/23/22 09:09 Dose: 30 ml Documented by: Multivitamins/Vitamin C (Multivitamin Tablet) 1 tab PO DAILY [facility] Last Admin: 02/28/22 09:19 Dose: 1 tab Documented by: Nicotine (Nicotine 21 Mg Patch.Td24) 21 mg TRANSDERMA DAILY [facility] Last Admin: 02/28/22 09:18 Dose: 21 mg Documented by: Nicotine Polacrilex (Nicotine Polacrilex 2 Mg Gum) 2 mg BUCCAL Q2H PRN PRN Reason: Nicotine Cravings Last Admin: 02/27/22 14:14 Dose: 2 mg Documented by: Ondansetron HCl (Ondansetron Odt 8 Mg Tab.Rapdis) 8 mg TRANSLINGU Q8H PRN PRN Reason: nausea Last Admin: 02/18/22 22:19 Dose: 8 mg Documented by: Prazosin HCl (Prazosin Hcl 1 Mg Capsule) 1 mg PO BEDTIME [facility]; Protocol Last Admin: 02/27/22 21:09 Dose: 1 mg Documented by: Thiamine HCl (Thiamine Hcl 100 Mg Tablet) 100 mg PO DAILY [facility] Last Admin: 02/28/22 09:19 Dose: 100 mg Documented by: Trazodone HCl (Trazodone Hcl 100 Mg Tablet) 100 mg PO BEDTIME [facility] Last Admin: 02/27/22 21:09 Dose: 100 mg Documented by: Allergies Allergies Allergy/AdvReac Type Severity Reaction Status Date / Time No Known Allergies Allergy Verified 01/30/22 11:11 Assessment & Plan Assessment & Plan (1) Bipolar 2 disorder: Status: Acute Code(s): F31.81 - Bipolar II disorder Assessment and Plan: provisional (2) Cocaine use disorder: Status: Acute Code(s): F14.10 - Cocaine abuse, uncomplicated (3) Alcohol use disorder, severe, dependence: Status: Acute Code(s): F10.20 - Alcohol dependence, uncomplicated (4) Opioid use disorder: Status: Acute Code(s): F11.90 - Opioid use, unspecified, uncomplicated Plan Bella is a 31 y.o. Female who carries a dx of Bipolar II DO, polysubstance abuse, and severe alcohol abuse. She has co-morbid diagnosis of hepatitis C. She presented to [facility] ED on 02/16/22 31 due to SI, depression, A/VH. Utox positive for opiates, fentanyl, an cocaine. EKG showed NSR, QTc 437. Li level <0.1. Ethyl alcohol level 22. Pt currently on MAT, suboxone.? 02/20 patient still in withdrawal, depressed with passive SI. She asks for something for anxiety and agrees to low-dose Thorazine 02/21 patient remains depressed with passive SI, emotionally labile, excessively guilty. Starting her on Depakote since she has a diagnosis of bipolar disorder and her mother was reportedly successfully treated with Depakote; once more stable will likely start Prozac. Patient says she has never had a therapist and has been afraid of talking about her history however sees the utility in this and wants to try 02/22 some improvement, with mild lessening of depressive symptoms; intermittent SI but overall more hopeful. Review of history makes bipolar seem less likely; she does have a history of manic episodes however when they last 3 or more days, these are typically associated with substance abuse; will leave bipolar 2 disorder as a provisional disorder however account underwriter discussed with patient that both PTSD and substance abuse have overlapping symptoms and it is possible that at some point, Prozac alone maybe adequate. At this point however patient feels that her mood lability is too severe and 2 triggering to forego a mood stabilizer and wants to remain on Depakote while also getting on Prozac. Patient reiterates that she is finally feeling ready to engage in therapy and no she needs it 02/25 patient remains depressed but SI resolved and mood is a little better; she has increased flashbacks since opening up about some history of trauma however patient feels that it is likely progress, as she is more comfortable talking in dealing with it than ever before. Feels that medication regimen is working well and agrees to titration of Prozac. Patient engaged in her treatment, going to groups, with good impulse and behavioral control. Given her history of severe chronic substance abuse with increasing SI and risky behaviors when relapsed and dysregulated, account underwriter believes patient should remain on the unit for continued stabilization. Since Prozac has been increased and Depakote is subtherapeutic, there is a need to make sure that patient is not triggered into a manic episode. Also it is in patient's best interest if she can get into a substance abuse program as she is very vulnerable to relapse. 02/27 patient stabilizing, depression remains but no SI and mood is a little better, Hope more prevalent. Patient has developed a bilateral hand tremor that comes intermittently. Assault Amphibious Vehicle Officer did not appreciate this at but patient says she will try to be aware of when it appears, if it is more immediately after medication or not. This may correlate with increase in scheduled BuSpar, however patient has been started on several new medications which could be contributing. Currently she says she wants to remain on current regimen and tremors tolerable Plan: CV Q15 min checks continue Prozac 20mg for ptsd, depression. -Continue Depakote ER 750mg qhs (previously discussed with patient risk of hepatotoxicity given history of hep C; she agreed to trial anyway since her mother had been on it; account underwriter ordered LFTs which continue to trend towards normal); mildly subtherapeutic however patient feels stable. While her diagnosis of bipolar type 2 remains, and it is too early to fully rule this out, her history suggests that if she does have it it is mild and that her predominant symptoms and manic type episodes are more likely due to PTSD/substance abuse. For this reason as well as since patient has a history of hep C and there is an effort to keep patient on lowest dose needed to avoid risks/side effects, and because patient feels stable, will leave the dose as it is even at a subtherapeutic level. This was thoroughly discussed with patient who agrees with this plan. -continue prazosin 1 mg q.h.s. for nightmares; may increase further -Increased to thorazine 75mg prn for anxiety (discussed risks/side-effects) -Continue Thorazine 100mg qhs prn for insomnia -Will continue gabapentin and clonidine.? -Buspar added and titrated to 30mg BID for anxiety DC Trileptal DC Seroquel; patient wants trazodone instead and is not concerned with night terrors dc CIWA; not needed benzo via CIWA since 02/19 Monitor response to medications. Monitor for safety in the milieu. Discharge on stabilization. Patient seen. Chart reviewed. Discussed with team. Obtain collateral contact info as needed I spent minutes with the patient and/or on the patient floor today, greater than?50% of which was spent counseling/coordinating care. Patient educated on: diagnosis, medication risk/benefits and substance abuse Informed Consent: understands Reason for contiued inpatient stay Substantial Risk for: rapid decompensation
[2022-02-28] MEDS: chlorproMAZINE HCl 25 MG TABLET 75 MG PO ×2 (13:50→18:48)
[2022-02-28 17:59] VITALS: BP 118/75; PULSE 90; RESP 16; TEMP 36.1; O2SAT 99
[2022-02-28] MEDS: Divalproex Sodium ER 250 MG TAB.ER.24H 750 MG PO (21:58)
[2022-02-28] MEDS: chlorproMAZINE HCl 100 MG TABLET PO (21:58)
[2022-02-28] MEDS: Prazosin HCL 1 MG CAPSULE PO (21:59)
[2022-02-28] MEDS: traZODone HCL 100 MG TABLET PO (21:59)
[2022-03-01 06:00] VITALS: BP 88/48; PULSE 75; TEMP 36.4; O2SAT 95
[2022-03-01 08:51] VITALS: BP 95/58; PULSE 90
[2022-03-01] MEDS: Thiamine HCL 100 MG TABLET PO (09:04)
[2022-03-01] MEDS: Famotidine 20 MG TABLET PO ×2 (09:04→20:51)
[2022-03-01] MEDS: FLUoxetine HCl 20 MG CAPSULE PO (09:04)
[2022-03-01] MEDS: Nicotine 21 MG PATCH.TD24 TRANSDERMA (09:04)
[2022-03-01] MEDS: Gabapentin 600 MG TABLET PO ×3 (09:05→20:51)
[2022-03-01] MEDS: busPIRone HCl 10 MG TABLET 30 MG PO ×2 (09:05→20:52)
[2022-03-01] MEDS: Folic Acid 1 MG TABLET PO (09:05)
[2022-03-01] MEDS: Multivitamin TABLET 1 TAB PO (09:05)
[2022-03-01] MEDS: Buprenorphine/Naloxone 8/2 mg FILM 1 FILM SUBLINGUAL ×2 (09:05→15:42)
[2022-03-01] MEDS: chlorproMAZINE HCl 25 MG TABLET 75 MG PO ×3 (09:12→19:12)
[2022-03-01 10:40] VITALS: BP 120/62; PULSE 107
[2022-03-01] MEDS: cloNIDine HCL 0.1 MG TABLET PO ×2 (10:48→22:22)
--- NOTE | 2022-03-01 11:18 | HO.PSYCHPN ---
Subjective Subjective Date of Service: 03/01/22 Reason For Visit: Depression, SI, opiate alcohol use d/o Interim History: had good talk with boyfriend who expressed empathy toward her struggles w/ substance abuse. Pt contemplating discharge, saying the talk was very comforting. It also represented the first time she stood up for herself with him, saying if he wants to be in a relationship with her, he has to stop drinking in front of her. Pt however realized that her sobriety needs to be built on something more solid than this relationships and so she elected to stay on the unit and think it over. Says tremors resolved Mental Status Exam Mental Status Exam Narrative: A&O. Pt is cooperative, dressed in casual attire, appropriately groomed; no psychomotor restlessness;? good eye contact; No Tics or Tremors apparent, but will monitor. No abnormal involuntary movements. Speech regular rate,? volume and prosody. No prolonged speech latency or dysarthria. Mood is good affect congruent, more calm, brighter; no SI; no HI; No AH; Denies delusional thought content and none expressed. Thought content on treatment, worries about relapse while trying to be hopeful about breaking cycle of addiction and past traumas; No known cognitive or memory impairment. Insight/ Judgment fair. Diagnostics Vital Signs (24Hr): Vital Signs - 24 hr 02/28/22 17:59 03/01/22 06:00 03/01/22 08:51 Temperature 96.9 F 97.6 F Pulse Rate 90 75 90 Respiratory Rate 16 Blood Pressure 118/75 88/48 L 95/58 L Pulse Oximetry 99 95 03/01/22 10:40 Temperature Pulse Rate 107 H Respiratory Rate Blood Pressure 120/62 Pulse Oximetry BMI result Body Mass Index 24.7 Labs Results: 02/16/22 17:03 02/19/22 08:10 Medications Medications Current Medications Al Hydroxide/Mg Hydroxide (Magnesium Hydrox/Alum Hydrox 30 Ml Oral.Susp) 30 ml PO Q6H PRN PRN Reason: Heartburn/Nausea Buprenorphine/Naloxone (Buprenorphine/Naloxone 8/2 Mg Film) 1 film SUBLINGUAL BID@0900,1700 [facility] Last Admin: 03/01/22 09:05 Dose: 1 film Documented by: Buspirone HCl (Buspirone Hcl 10 Mg Tablet) 30 mg PO BID [facility] Last Admin: 03/01/22 09:05 Dose: 30 mg Documented by: Chlorpromazine HCl (Chlorpromazine Hcl 25 Mg Tablet) 75 mg PO TID PRN PRN Reason: anxiety Last Admin: 03/01/22 09:12 Dose: 75 mg Documented by: Chlorpromazine HCl (Chlorpromazine Hcl 100 Mg Tablet) 100 mg PO BEDTIME PRN PRN Reason: insomnia Last Admin: 02/28/22 21:58 Dose: 100 mg Documented by: Clonidine HCl (Clonidine Hcl 0.1 Mg Tablet) 0.1 mg PO TID PRN; Protocol PRN Reason: Anxiety Last Admin: 03/01/22 10:48 Dose: 0.1 mg Documented by: Divalproex Sodium (Divalproex Sodium Er 250 Mg Tab.Er.24h) 750 mg PO BEDTIME [facility] Last Admin: 02/28/22 21:58 Dose: 750 mg Documented by: Docusate Sodium (Docusate Sodium 100 Mg Capsule) 100 mg PO BID PRN PRN Reason: constipation Last Admin: 02/21/22 16:48 Dose: 100 mg Documented by: Famotidine (Famotidine 20 Mg Tablet) 20 mg PO BID [facility] Last Admin: 03/01/22 09:04 Dose: 20 mg Documented by: Fluoxetine HCl (Fluoxetine Hcl 20 Mg Capsule) 20 mg PO DAILY [facility] Last Admin: 03/01/22 09:04 Dose: 20 mg Documented by: Folic Acid (Folic Acid 1 Mg Tablet) 1 mg PO DAILY [facility] Last Admin: 03/01/22 09:05 Dose: 1 mg Documented by: Gabapentin (Gabapentin 600 Mg Tablet) 600 mg PO TID [facility] Last Admin: 03/01/22 09:05 Dose: 600 mg Documented by: Hydroxyzine HCl (Hydroxyzine Hcl 25 Mg Tablet) 25 mg PO BEDTIME PRN PRN Reason: Anxiety Last Admin: 02/25/22 18:32 Dose: 25 mg Documented by: Ibuprofen (Ibuprofen 600 Mg Tablet) 600 mg PO Q6H PRN PRN Reason: Pain, Mild (Pain Scale 1-3) Magnesium Hydroxide (Milk Of Magnesia 30 Ml Oral.Susp) 30 ml PO DAILY PRN PRN Reason: Constipation Last Admin: 02/23/22 09:09 Dose: 30 ml Documented by: Multivitamins/Vitamin C (Multivitamin Tablet) 1 tab PO DAILY [facility] Last Admin: 03/01/22 09:05 Dose: 1 tab Documented by: Nicotine (Nicotine 21 Mg Patch.Td24) 21 mg TRANSDERMA DAILY [facility] Last Admin: 03/01/22 09:04 Dose: 21 mg Documented by: Nicotine Polacrilex (Nicotine Polacrilex 2 Mg Gum) 2 mg BUCCAL Q2H PRN PRN Reason: Nicotine Cravings Last Admin: 02/27/22 14:14 Dose: 2 mg Documented by: Ondansetron HCl (Ondansetron Odt 8 Mg Tab.Rapdis) 8 mg TRANSLINGU Q8H PRN PRN Reason: nausea Last Admin: 02/18/22 22:19 Dose: 8 mg Documented by: Prazosin HCl (Prazosin Hcl 1 Mg Capsule) 1 mg PO BEDTIME [facility]; Protocol Last Admin: 02/28/22 21:59 Dose: 1 mg Documented by: Thiamine HCl (Thiamine Hcl 100 Mg Tablet) 100 mg PO DAILY [facility] Last Admin: 03/01/22 09:04 Dose: 100 mg Documented by: Trazodone HCl (Trazodone Hcl 100 Mg Tablet) 100 mg PO BEDTIME [facility] Last Admin: 02/28/22 21:59 Dose: 100 mg Documented by: Allergies Allergies Allergy/AdvReac Type Severity Reaction Status Date / Time No Known Allergies Allergy Verified 01/30/22 11:11 Assessment & Plan Assessment & Plan (1) Bipolar 2 disorder: Status: Acute Code(s): F31.81 - Bipolar II disorder Assessment and Plan: provisional (2) Cocaine use disorder: Status: Acute Code(s): F14.10 - Cocaine abuse, uncomplicated (3) Alcohol use disorder, severe, dependence: Status: Acute Code(s): F10.20 - Alcohol dependence, uncomplicated (4) Opioid use disorder: Status: Acute Code(s): F11.90 - Opioid use, unspecified, uncomplicated Plan Bella is a 31 y.o. Female who carries a dx of Bipolar II DO, polysubstance abuse, and severe alcohol abuse. She has co-morbid diagnosis of hepatitis C. She presented to [facility] ED on 02/16/22 31 due to SI, depression, A/VH. Utox positive for opiates, fentanyl, an cocaine. EKG showed NSR, QTc 437. Li level <0.1. Ethyl alcohol level 22. Pt currently on MAT, suboxone.? 02/20 patient still in withdrawal, depressed with passive SI. She asks for something for anxiety and agrees to low-dose Thorazine 02/21 patient remains depressed with passive SI, emotionally labile, excessively guilty. Starting her on Depakote since she has a diagnosis of bipolar disorder and her mother was reportedly successfully treated with Depakote; once more stable will likely start Prozac. Patient says she has never had a therapist and has been afraid of talking about her history however sees the utility in this and wants to try 02/22 some improvement, with mild lessening of depressive symptoms; intermittent SI but overall more hopeful. Review of history makes bipolar seem less likely; she does have a history of manic episodes however when they last 3 or more days, these are typically associated with substance abuse; will leave bipolar 2 disorder as a provisional disorder however leader writer discussed with patient that both PTSD and substance abuse have overlapping symptoms and it is possible that at some point, Prozac alone maybe adequate. At this point however patient feels that her mood lability is too severe and 2 triggering to forego a mood stabilizer and wants to remain on Depakote while also getting on Prozac. Patient reiterates that she is finally feeling ready to engage in therapy and no she needs it 02/25 patient remains depressed but SI resolved and mood is a little better; she has increased flashbacks since opening up about some history of trauma however patient feels that it is likely progress, as she is more comfortable talking in dealing with it than ever before. Feels that medication regimen is working well and agrees to titration of Prozac. Patient engaged in her treatment, going to groups, with good impulse and behavioral control. Given her history of severe chronic substance abuse with increasing SI and risky behaviors when relapsed and dysregulated, leader writer believes patient should remain on the unit for continued stabilization. Since Prozac has been increased and Depakote is subtherapeutic, there is a need to make sure that patient is not triggered into a manic episode. Also it is in patient's best interest if she can get into a substance abuse program as she is very vulnerable to relapse. 02/27 patient stabilizing, depression remains but no SI and mood is a little better, Hope more prevalent. Patient has developed a bilateral hand tremor that comes intermittently. Dye House Helper did not appreciate this at but patient says she will try to be aware of when it appears, if it is more immediately after medication or not. This may correlate with increase in scheduled BuSpar, however patient has been started on several new medications which could be contributing. Currently she says she wants to remain on current regimen and tremors tolerable 4/1 mood better; no SI; more hopeful abourt sobriety; tremor resolved Plan: CV Q15 min checks continue Prozac 20mg for ptsd, depression. -Continue Depakote ER 750mg qhs (previously discussed with patient risk of hepatotoxicity given history of hep C; she agreed to trial anyway since her mother had been on it; leader writer ordered LFTs which continue to trend towards normal); mildly subtherapeutic however patient feels stable. While her diagnosis of bipolar type 2 remains, and it is too early to fully rule this out, her history suggests that if she does have it it is mild and that her predominant symptoms and manic type episodes are more likely due to PTSD/substance abuse. For this reason as well as since patient has a history of hep C and there is an effort to keep patient on lowest dose needed to avoid risks/side effects, and because patient feels stable, will leave the dose as it is even at a subtherapeutic level. This was thoroughly discussed with patient who agrees with this plan. -continue prazosin 1 mg q.h.s. for nightmares; may increase further -Increased to thorazine 75mg prn for anxiety (discussed risks/side-effects) -Continue Thorazine 100mg qhs prn for insomnia -Will continue gabapentin and clonidine.? -Buspar added and titrated to 30mg BID for anxiety DC Trileptal DC Seroquel; patient wants trazodone instead and is not concerned with night terrors dc CIWA; not needed benzo via CIWA since 02/19 Monitor response to medications. Monitor for safety in the milieu. Discharge on stabilization. Patient seen. Chart reviewed. Discussed with team. Obtain collateral contact info as needed I spent minutes with the patient and/or on the patient floor today, greater than?50% of which was spent counseling/coordinating care. Patient educated on: substance abuse Informed Consent: understands Reason for contiued inpatient stay Substantial Risk for: stable for discharge
[2022-03-01 18:00] VITALS: BP 92/50; PULSE 80; RESP 16; TEMP 36.4; O2SAT 99
[2022-03-01] MEDS: Prazosin HCL 1 MG CAPSULE PO (20:50)
[2022-03-01] MEDS: Mirtazapine 7.5 MG TABLET PO (20:50)
[2022-03-01] MEDS: Divalproex Sodium ER 250 MG TAB.ER.24H 750 MG PO (20:51)
[2022-03-02 06:50] VITALS: BP 98/53; PULSE 86; RESP 18; TEMP 36.5; O2SAT 98
[2022-03-02] MEDS: Folic Acid 1 MG TABLET PO (08:13)
[2022-03-02] MEDS: Thiamine HCL 100 MG TABLET PO (08:13)
[2022-03-02] MEDS: Gabapentin 600 MG TABLET PO ×3 (08:13→20:46)
[2022-03-02] MEDS: busPIRone HCl 10 MG TABLET 30 MG PO ×2 (08:13→20:46)
[2022-03-02] MEDS: Multivitamin TABLET 1 TAB PO (08:13)
[2022-03-02] MEDS: Famotidine 20 MG TABLET PO ×2 (08:13→20:46)
[2022-03-02] MEDS: FLUoxetine HCl 20 MG CAPSULE PO (08:13)
[2022-03-02] MEDS: Buprenorphine/Naloxone 8/2 mg FILM 1 FILM SUBLINGUAL ×2 (08:14→16:23)
[2022-03-02] MEDS: Nicotine 21 MG PATCH.TD24 TRANSDERMA (08:14)
[2022-03-02] MEDS: chlorproMAZINE HCl 25 MG TABLET 75 MG PO ×4 (08:23→22:31)
[2022-03-02 13:02] VITALS: BP 107/60; PULSE 102; RESP 16
[2022-03-02] MEDS: cloNIDine HCL 0.1 MG TABLET PO ×2 (13:02→22:31)
--- NOTE | 2022-03-02 14:07 | P.PNPSI_ITS ---
Subjective Subjective Date of Service: 03/02/22 Reason For Visit: Depression, SI, opiate alcohol use d/o Interim History: Patient seen and discussed with the team. Patient reports her day is going well today. She feels the Remeron helped her sleep. Reflected on the events of her admission her relapse and her sporadic adherence to her psychotropics. She reports she has improved since being here. She says I am having a good day today . She feels her anxiety is much better controlled. No SI/HI/psychosis. Review of Systems Review of Systems CVS: No c/o chest pain, palpitations, no SOB CARDIOLOGY TECHNOLOGIST: No c/o dizziness, headache GI: C/o Nausea, Vomiting, constipation Yes Other (patient refused ) Mental Status Exam Mental Status Exam Narrative: A&O. Pt is cooperative, dressed in casual attire, appropriately groomed; no psychomotor restlessness;? good eye contact; No Tics or tremors. No abnormal involuntary movements. Speech regular rate,? volume and prosody. No prolonged speech latency or dysarthria. Mood is good affect congruent, more calm, brighter; no SI; no HI; No AH; Denies delusional thought content and none expressed. Thought content on treatment, worries about relapse while trying to be hopeful about breaking cycle of addiction and past traumas; No known cognitive or memory impairment. Insight/ Judgment fair. Diagnostics Vital Signs (24Hr): Vital Signs - 24 hr 03/01/22 18:00 03/02/22 06:50 03/02/22 13:02 Temperature 97.6 F 97.7 F Pulse Rate 80 86 102 H Respiratory Rate 16 18 16 Blood Pressure 92/50 L 98/53 L 107/60 Pulse Oximetry 99 98 BMI result Body Mass Index 24.7 Labs Results: 02/16/22 17:03 02/19/22 08:10 Medications Medications Current Medications Al Hydroxide/Mg Hydroxide (Magnesium Hydrox/Alum Hydrox 30 Ml Oral.Susp) 30 ml PO Q6H PRN PRN Reason: Heartburn/Nausea Buprenorphine/Naloxone (Buprenorphine/Naloxone 8/2 Mg Film) 1 film SUBLINGUAL BID@0900,1700 [facility] 234 BEDS AT [facility] Last Admin: 03/02/22 08:14 Dose: 1 film Documented by: Buspirone HCl (Buspirone Hcl 10 Mg Tablet) 30 mg PO BID COUNTS INCLUDE 234 BEDS AT [facility] Last Admin: 03/02/22 08:13 Dose: 30 mg Documented by: Chlorpromazine HCl (Chlorpromazine Hcl 25 Mg Tablet) 75 mg PO TID PRN PRN Reason: anxiety Last Admin: 03/02/22 13:02 Dose: 75 mg Documented by: Chlorpromazine HCl (Chlorpromazine Hcl 100 Mg Tablet) 100 mg PO BEDTIME PRN PRN Reason: insomnia Last Admin: 02/28/22 21:58 Dose: 100 mg Documented by: Clonidine HCl (Clonidine Hcl 0.1 Mg Tablet) 0.1 mg PO TID PRN; Protocol PRN Reason: Anxiety Last Admin: 03/02/22 13:02 Dose: 0.1 mg Documented by: Divalproex Sodium (Divalproex Sodium Er 250 Mg Tab.Er.24h) 750 mg PO BEDTIME [facility]S [facility]CLUDE 234 BEDS AT [facility] Last Admin: 03/01/22 20:51 Dose: 750 mg Documented by: Docusate Sodium (Docusate Sodium 100 Mg Capsule) 100 mg PO BID PRN PRN Reason: constipation Last Admin: 02/21/22 16:48 Dose: 100 mg Documented by: Famotidine (Famotidine 20 Mg Tablet) 20 mg PO BID [facility]S [facility]CLUDE 234 BEDS AT [facility] Last Admin: 03/02/22 08:13 Dose: 20 mg Documented by: Fluoxetine HCl (Fluoxetine Hcl 20 Mg Capsule) 20 mg PO DAILY [facility]CLUDE 234 BEDS AT [facility] Last Admin: 03/02/22 08:13 Dose: 20 mg Documented by: Folic Acid (Folic Acid 1 Mg Tablet) 1 mg PO DAILY [facility]CLUDE 234 BEDS AT [facility] Last Admin: 03/02/22 08:13 Dose: 1 mg Documented by: Gabapentin (Gabapentin 600 Mg Tablet) 600 mg PO TID [facility]S [facility]CLUDE 234 BEDS AT [facility] Last Admin: 03/02/22 14:02 Dose: 600 mg Documented by: Hydroxyzine HCl (Hydroxyzine Hcl 25 Mg Tablet) 25 mg PO BEDTIME PRN PRN Reason: Anxiety Last Admin: 02/25/22 18:32 Dose: 25 mg Documented by: Ibuprofen (Ibuprofen 600 Mg Tablet) 600 mg PO Q6H PRN PRN Reason: Pain, Mild (Pain Scale 1-3) Magnesium Hydroxide (Milk Of Magnesia 30 Ml Oral.Susp) 30 ml PO DAILY PRN PRN Reason: Constipation Last Admin: 02/23/22 09:09 Dose: 30 ml Documented by: Mirtazapine (Mirtazapine 7.5 Mg Tablet) 7.5 mg PO BEDTIME COUNTS INCLUDE 234 BEDS AT [facility] Last Admin: 03/01/22 20:50 Dose: 7.5 mg Documented by: Multivitamins/Vitamin C (Multivitamin Tablet) 1 tab PO DAILY [facility] Last Admin: 03/02/22 08:13 Dose: 1 tab Documented by: Nicotine (Nicotine 21 Mg Patch.Td24) 21 mg TRANSDERMA DAILY [facility]S INCLUDE 234 BEDS AT [facility] Last Admin: 03/02/22 08:14 Dose: 21 mg Documented by: Nicotine Polacrilex (Nicotine Polacrilex 2 Mg Gum) 2 mg BUCCAL Q2H PRN PRN Reason: Nicotine Cravings Last Admin: 02/27/22 14:14 Dose: 2 mg Documented by: Ondansetron HCl (Ondansetron Odt 8 Mg Tab.Rapdis) 8 mg TRANSLINGU Q8H PRN PRN Reason: nausea Last Admin: 02/18/22 22:19 Dose: 8 mg Documented by: Prazosin HCl (Prazosin Hcl 1 Mg Capsule) 1 mg PO BEDTIME [facility]; Protocol Last Admin: 03/01/22 20:50 Dose: 1 mg Documented by: Thiamine HCl (Thiamine Hcl 100 Mg Tablet) 100 mg PO DAILY [facility] Last Admin: 03/02/22 08:13 Dose: 100 mg Documented by: Trazodone HCl (Trazodone Hcl 100 Mg Tablet) 100 mg PO BEDTIME PRN PRN Reason: continued insomnia Allergies Allergies Allergy/AdvReac Type Severity Reaction Status Date / Time No Known Allergies Allergy Verified 01/30/22 11:11 Assessment & Plan Assessment & Plan (1) Bipolar 2 disorder: Status: Acute Code(s): F31.81 - Bipolar II disorder Assessment and Plan: provisional (2) Cocaine use disorder: Status: Acute Code(s): F14.10 - Cocaine abuse, uncomplicated (3) Alcohol use disorder, severe, dependence: Status: Acute Code(s): F10.20 - Alcohol dependence, uncomplicated (4) Opioid use disorder: Status: Acute Code(s): F11.90 - Opioid use, unspecified, uncomplicated Plan Bella is a 31 y.o. Female who carries a dx of Bipolar II DO, polysubstance abuse, and severe alcohol abuse. She has co-morbid diagnosis of hepatitis C. She presented to [facility] ED on 02/16/22 31 due to SI, depression, A/VH. Utox positive for opiates, fentanyl, an cocaine. EKG showed NSR, QTc 437. Li level <0.1. Ethyl alcohol level 22. Pt currently on MAT, suboxone.? 02/20 patient still in withdrawal, depressed with passive SI. She asks for something for anxiety and agrees to low-dose Thorazine 02/21 patient remains depressed with passive SI, emotionally labile, excessively guilty. Starting her on Depakote since she has a diagnosis of bipolar disorder and her mother was reportedly successfully treated with Depakote; once more stable will likely start Prozac. Patient says she has never had a therapist and has been afraid of talking about her history however sees the utility in this and wants to try 02/22 some improvement, with mild lessening of depressive symptoms; intermittent SI but overall more hopeful. Review of history makes bipolar seem less likely; she does have a history of manic episodes however when they last 3 or more days, these are typically associated with substance abuse; will leave bipolar 2 disorder as a provisional disorder however manual writer discussed with patient that both PTSD and substance abuse have overlapping symptoms and it is possible that at some point, Prozac alone maybe adequate. At this point however patient feels that her mood lability is too severe and 2 triggering to forego a mood stabi lizer and wants to remain on Depakote while also getting on Prozac. Patient reiterates that she is finally feeling ready to engage in therapy and no she needs it 02/25 patient remains depressed but SI resolved and mood is a little better; she has increased flashbacks since opening up about some history of trauma however patient feels that it is likely progress, as she is more comfortable talking in dealing with it than ever before. Feels that medication regimen is working well and agrees to titration of Prozac. Patient engaged in her treatment, going to groups, with good impulse and behavioral control. Given her history of severe chronic substance abuse with increasing SI and risky behaviors when relapsed and dysregulated, manual writer believes patient should remain on the unit for continued stabilization. Since Prozac has been increased and Depakote is subtherapeutic, there is a need to make sure that patient is not triggered into a manic episode. Also it is in patient's best interest if she can get into a substance abuse program as she is very vulnerable to relapse. 3/30 patient stabilizing, depression remains but no SI and mood is a little better, Hope more prevalent. Patient has developed a bilateral hand tremor that comes intermittently. Optical Goods Drill Operator did not appreciate this at but patient says she will try to be aware of when it appears, if it is more immediately after medication or not. This may correlate with increase in scheduled BuSpar, however patient has been started on several new medications which could be contributing. Currently she says she wants to remain on current regimen and tremors tolerable 03/01 mood better; no SI; more hopeful abourt sobriety; tremor resolved 03/02: Doing well. No change in meds today. Plan: CV Q15 min checks continue Prozac 20mg for ptsd, depression. -Continue Depakote ER 750mg qhs (previously discussed with patient risk of hepat otoxicity given history of hep C; she agreed to trial anyway since her mother had been on it; manual writer ordered LFTs which continue to trend towards normal); mildly subtherapeutic however patient feels stable. While her diagnosis of bipolar type 2 remains, and it is too early to fully rule this out, her history suggests that if she does have it it is mild and that her predominant symptoms and manic type episodes are more likely due to PTSD/substance abuse. For this reason as well as since patient has a history of hep C and there is an effort to keep patient on lowest dose needed to avoid risks/side effects, and because patient feels stable, will leave the dose as it is even at a subtherapeutic level. This was thoroughly discussed with patient who agrees with this plan. -continue prazosin 1 mg q.h.s. for nightmares; may increase further -Increased to thorazine 75mg prn for anxiety (discussed risks/side-effects) -Continue Thorazine 100mg qhs prn for insomnia -Will continue gabapentin and clonidine.? -Buspar added and titrated to 30mg BID for anxiety DC Trileptal DC Seroquel; patient wants trazodone instead and is not concerned with night terrors dc CIWA; not needed benzo via CIWA since 02/19 Monitor response to medications. Monitor for safety in the milieu. Discharge on stabilization. Patient seen. Chart reviewed. Discussed with team. Obtain collateral contact info as needed I spent minutes with the patient and/or on the patient floor today, great er than?50% of which was spent counseling/coordinating care. Reason for contiued inpatient stay Substantial Risk for: inability to function and rapid decompensation
[2022-03-02 18:00] VITALS: BP 109/68; PULSE 68; RESP 16; TEMP 36.5; O2SAT 98
[2022-03-02] MEDS: Prazosin HCL 1 MG CAPSULE PO (20:46)
[2022-03-02] MEDS: Mirtazapine 7.5 MG TABLET PO (20:47)
[2022-03-02] MEDS: Divalproex Sodium ER 250 MG TAB.ER.24H 750 MG PO (20:47)
[2022-03-03 06:00] VITALS: BP 101/51; PULSE 72; RESP 15; TEMP 36.1; O2SAT 97
[2022-03-03] MEDS: Famotidine 20 MG TABLET PO ×2 (08:56→21:19)
[2022-03-03] MEDS: Folic Acid 1 MG TABLET PO (08:56)
[2022-03-03] MEDS: Thiamine HCL 100 MG TABLET PO (08:56)
[2022-03-03] MEDS: chlorproMAZINE HCl 25 MG TABLET 75 MG PO ×2 (08:56→15:13)
[2022-03-03] MEDS: FLUoxetine HCl 20 MG CAPSULE PO (08:56)
[2022-03-03] MEDS: Nicotine 21 MG PATCH.TD24 TRANSDERMA (08:56)
[2022-03-03] MEDS: Gabapentin 600 MG TABLET PO ×3 (08:56→21:20)
[2022-03-03] MEDS: busPIRone HCl 10 MG TABLET 30 MG PO ×2 (08:56→21:19)
[2022-03-03] MEDS: Multivitamin TABLET 1 TAB PO (08:56)
[2022-03-03] MEDS: Buprenorphine/Naloxone 8/2 mg FILM 1 FILM SUBLINGUAL ×2 (08:57→20:29)
--- NOTE | 2022-03-03 13:13 | HO.PSYCHPN ---
Subjective Subjective Date of Service: 03/03/22 Reason For Visit: Depression, SI, opiate alcohol use d/o Interim History: Patient seen and discussed with the team. Patient continues to do well. Says she prefers to go home rather than a program and says as long as her BF doesnt drink in front of her and if I don't see it she will be fine and she won't be triggered to relapse. She is somewhat tired. Otherwise she continues to feel the Remeron helped her sleep. She feels her anxiety is much better controlled. No SI/HI/psychosis. Review of Systems Review of Systems CVS: No c/o chest pain, palpitations, no SOB IMMIGRATION INSPECTOR: No c/o dizziness, headache GI: C/o Nausea, Vomiting, constipation Yes Other (patient refused ) Mental Status Exam Mental Status Exam Narrative: A&O. Pt is cooperative, dressed in casual attire, appropriately groomed; no psychomotor restlessness;? good eye contact; No Tics or tremors. No abnormal involuntary movements. Speech regular rate,? volume and prosody. No prolonged speech latency or dysarthria. Mood is good affect congruent, more calm, brighter; no SI; no HI; No AH; Denies delusional thought content and none expressed. Thought content on treatment, worries about relapse while trying to be hopeful about breaking cycle of addiction and past traumas; No known cognitive or memory impairment. Insight/ Judgment fair. Diagnostics Vital Signs (24Hr): Vital Signs - 24 hr 03/02/22 18:00 03/03/22 06:00 Temperature 97.7 F 97 F Pulse Rate 68 72 Respiratory Rate 16 15 Blood Pressure 109/68 101/51 L Pulse Oximetry 98 97 BMI result Body Mass Index 24.7 Labs Results: 02/16/22 17:03 02/19/22 08:10 Medications Medications Current Medications Al Hydroxide/Mg Hydroxide (Magnesium Hydrox/Alum Hydrox 30 Ml Oral.Susp) 30 ml PO Q6H PRN PRN Reason: Heartburn/Nausea Buprenorphine/Naloxone (Buprenorphine/Naloxone 8/2 Mg Film) 1 film SUBLINGUAL BID@0900,1700 [facility] Last Admin: 03/03/22 08:57 Dose: 1 film Documented by: Buspirone HCl (Buspirone Hcl 10 Mg Tablet) 30 mg PO BID [facility] Last Admin: 03/03/22 08:56 Dose: 30 mg Documented by: Chlorpromazine HCl (Chlorpromazine Hcl 25 Mg Tablet) 75 mg PO TID PRN PRN Reason: anxiety Last Admin: 03/03/22 08:56 Dose: 75 mg Documented by: Chlorpromazine HCl (Chlorpromazine Hcl 100 Mg Tablet) 100 mg PO BEDTIME PRN PRN Reason: insomnia Last Admin: 02/28/22 21:58 Dose: 100 mg Documented by: Clonidine HCl (Clonidine Hcl 0.1 Mg Tablet) 0.1 mg PO TID PRN; Protocol PRN Reason: Anxiety Last Admin: 03/02/22 22:31 Dose: 0.1 mg Documented by: Divalproex Sodium (Divalproex Sodium Er 250 Mg Tab.Er.24h) 750 mg PO BEDTIME [facility] Last Admin: 03/02/22 20:47 Dose: 750 mg Documented by: Docusate Sodium (Docusate Sodium 100 Mg Capsule) 100 mg PO BID PRN PRN Reason: constipation Last Admin: 02/21/22 16:48 Dose: 100 mg Documented by: Famotidine (Famotidine 20 Mg Tablet) 20 mg PO BID [facility] Last Admin: 03/03/22 08:56 Dose: 20 mg Documented by: Fluoxetine HCl (Fluoxetine Hcl 20 Mg Capsule) 20 mg PO DAILY [facility] Last Admin: 03/03/22 08:56 Dose: 20 mg Documented by: Folic Acid (Folic Acid 1 Mg Tablet) 1 mg PO DAILY [facility] Last Admin: 03/03/22 08:56 Dose: 1 mg Documented by: Gabapentin (Gabapentin 600 Mg Tablet) 600 mg PO TID [facility] Last Admin: 03/03/22 08:56 Dose: 600 mg Documented by: Hydroxyzine HCl (Hydroxyzine Hcl 25 Mg Tablet) 25 mg PO BEDTIME PRN PRN Reason: Anxiety Last Admin: 02/25/22 18:32 Dose: 25 mg Documented by: Ibuprofen (Ibuprofen 600 Mg Tablet) 600 mg PO Q6H PRN PRN Reason: Pain, Mild (Pain Scale 1-3) Magnesium Hydroxide (Milk Of Magnesia 30 Ml Oral.Susp) 30 ml PO DAILY PRN PRN Reason: Constipation Last Admin: 02/23/22 09:09 Dose: 30 ml Documented by: Mirtazapine (Mirtazapine 7.5 Mg Tablet) 7.5 mg PO BEDTIME [facility] Last Admin: 03/02/22 20:47 Dose: 7.5 mg Documented by: Multivitamins/Vitamin C (Multivitamin Tablet) 1 tab PO DAILY [facility] Last Admin: 03/03/22 08:56 Dose: 1 tab Documented by: Nicotine (Nicotine 21 Mg Patch.Td24) 21 mg TRANSDERMA DAILY [facility] Last Admin: 03/03/22 08:56 Dose: 21 mg Documented by: Nicotine Polacrilex (Nicotine Polacrilex 2 Mg Gum) 2 mg BUCCAL Q2H PRN PRN Reason: Nicotine Cravings Last Admin: 02/27/22 14:14 Dose: 2 mg Documented by: Ondansetron HCl (Ondansetron Odt 8 Mg Tab.Rapdis) 8 mg TRANSLINGU Q8H PRN PRN Reason: nausea Last Admin: 02/18/22 22:19 Dose: 8 mg Documented by: Prazosin HCl (Prazosin Hcl 1 Mg Capsule) 1 mg PO BEDTIME [facility]; Protocol Last Admin: 03/02/22 20:46 Dose: 1 mg Documented by: Thiamine HCl (Thiamine Hcl 100 Mg Tablet) 100 mg PO DAILY [facility] Last Admin: 03/03/22 08:56 Dose: 100 mg Documented by: Trazodone HCl (Trazodone Hcl 100 Mg Tablet) 100 mg PO BEDTIME PRN PRN Reason: continued insomnia Allergies Allergies Allergy/AdvReac Type Severity Reaction Status Date / Time No Known Allergies Allergy Verified 01/30/22 11:11 Assessment & Plan Assessment & Plan (1) Bipolar 2 disorder: Status: Acute Code(s): F31.81 - Bipolar II disorder Assessment and Plan: provisional (2) Cocaine use disorder: Status: Acute Code(s): F14.10 - Cocaine abuse, uncomplicated (3) Alcohol use disorder, severe, dependence: Status: Acute Code(s): F10.20 - Alcohol dependence, uncomplicated (4) Opioid use disorder: Status: Acute Code(s): F11.90 - Opioid use, unspecified, uncomplicated Plan Bella is a 31 y.o. Female who carries a dx of Bipolar II DO, polysubstance abuse, and severe alcohol abuse. She has co-morbid diagnosis of hepatitis C. She presented to [facility] on 02/16/22 31 due to SI, depression, A/VH. Utox positive for opiates, fentanyl, an cocaine. EKG showed NSR, QTc 437. Li level <0.1. Ethyl alcohol level 22. Pt currently on MAT, suboxone.? 02/20 patient still in withdrawal, depressed with passive SI. She asks for something for anxiety and agrees to low-dose Thorazine 02/21 patient remains depressed with passive SI, emotionally labile, excessively guilty. Starting her on Depakote since she has a diagnosis of bipolar disorder and her mother was reportedly successfully treated with Depakote; once more stable will likely start Prozac. Patient says she has never had a therapist and has been afraid of talking about her history however sees the utility in this and wants to try 02/22 some improvement, with mild lessening of depressive symptoms; intermittent SI but overall more hopeful. Review of history makes bipolar seem less likely; she does have a history of manic episodes however when they last 3 or more days, these are typically associated with substance abuse; will leave bipolar 2 disorder as a provisional disorder however principal technical writer discussed with patient that both PTSD and substance abuse have overlapping symptoms and it is possible that at some point, Prozac alone maybe adequate. At this point however patient feels that her mood lability is too severe and 2 triggering to forego a mood stabilizer and wants to remain on Depakote while also getting on Prozac. Patient reiterates that she is finally feeling ready to engage in therapy and no she needs it 02/25 patient remains depressed but SI resolved and mood is a little better; she has increased flashbacks since opening up about some history of trauma however patient feels that it is likely progress, as she is more comfortable talking in dealing with it than ever before. Feels that medication regimen is working well and agrees to titration of Prozac. Patient engaged in her treatment, going to groups, with good impulse and behavioral control. Given her history of severe chronic substance abuse with increasing SI and risky behaviors when relapsed and dysregulated, principal technical writer believes patient should remain on the unit for continued stabilization. Since Prozac has been increased and Depakote is subtherapeutic, there is a need to make sure that patient is not triggered into a manic episode. Also it is in patient's best interest if she can get into a substance abuse program as she is very vulnerable to relapse. 02/27 patient stabilizing, depression remains but no SI and mood is a little better, Hope more prevalent. Patient has developed a bilateral hand tremor that comes intermittently. Broadcast Technician did not appreciate this at but patient says she will try to be aware of when it appears, if it is more immediately after medication or not. This may correlate with increase in scheduled BuSpar, however patient has been started on several new medications which could be contributing. Currently she says she wants to remain on current regimen and tremors tolerable 03/01 mood better; no SI; more hopeful abourt sobriety; tremor resolved 03/02: Doing well. No change in meds today. Plan: CV Q15 min checks continue Prozac 20mg for ptsd, depression. -Continue Depakote ER 750mg qhs (previously discussed with patient risk of hepatotoxicity given history of hep C; she agreed to trial anyway since her mother had been on it; principal technical writer ordered LFTs which continue to trend towards normal); mildly subtherapeutic however patient feels stable. While her diagnosis of bipolar type 2 remains, and it is too early to fully rule this out, her history suggests that if she does have it it is mild and that her predominant symptoms and manic type episodes are more likely due to PTSD/substance abuse. For this reason as well as since patient has a history of hep C and there is an effort to keep patient on lowest dose needed to avoid risks/side effects, and because patient feels stable, will leave the dose as it is even at a subtherapeutic level. This was thoroughly discussed with patient who agrees with this plan. -continue prazosin 1 mg q.h.s. for nightmares; may increase further -Increased to thorazine 75mg prn for anxiety (discussed risks/side-effects) -Continue Thorazine 100mg qhs prn for insomnia -Will continue gabapentin and clonidine.? -Buspar added and titrated to 30mg BID for anxiety DC Trileptal DC Seroquel; patient wants trazodone instead and is not concerned with night terrors dc CIWA; not needed benzo via CIWA since 02/19 Monitor response to medications. Monitor for safety in the milieu. Discharge on stabilization. Patient seen. Chart reviewed. Discussed with team. Obtain collateral contact info as needed 03/03 No change I spent minutes with the patient and/or on the patient floor today, greater than?50% of which was spent counseling/coordinating care. Reason for contiued inpatient stay Substantial Risk for: harm to self, inability to function and rapid decompensation
[2022-03-03 18:00] VITALS: BP 123/66; PULSE 104; TEMP 36.6
[2022-03-03] MEDS: chlorproMAZINE HCl 100 MG TABLET PO (21:19)
[2022-03-03] MEDS: Mirtazapine 7.5 MG TABLET PO (21:19)
[2022-03-03] MEDS: Prazosin HCL 1 MG CAPSULE PO (21:20)
[2022-03-03] MEDS: Divalproex Sodium ER 250 MG TAB.ER.24H 750 MG PO (21:20)
[2022-03-03] MEDS: cloNIDine HCL 0.1 MG TABLET PO (21:20)
[2022-03-04 06:05] VITALS: BP 101/59; PULSE 86; RESP 16; TEMP 36.1; O2SAT 97
[2022-03-04] MEDS: Thiamine HCL 100 MG TABLET PO (09:02)
[2022-03-04] MEDS: Famotidine 20 MG TABLET PO (09:02)
[2022-03-04] MEDS: busPIRone HCl 10 MG TABLET 30 MG PO (09:02)
[2022-03-04] MEDS: Nicotine 21 MG PATCH.TD24 TRANSDERMA (09:02)
[2022-03-04] MEDS: Multivitamin TABLET 1 TAB PO (09:02)
[2022-03-04] MEDS: Gabapentin 600 MG TABLET PO ×2 (09:02→14:17)
[2022-03-04] MEDS: FLUoxetine HCl 20 MG CAPSULE PO (09:02)
[2022-03-04] MEDS: Buprenorphine/Naloxone 8/2 mg FILM 1 FILM SUBLINGUAL ×2 (09:02→14:17)
[2022-03-04] MEDS: Folic Acid 1 MG TABLET PO (09:02)
[2022-03-04] MEDS: chlorproMAZINE HCl 25 MG TABLET 75 MG PO (09:06)
--- NOTE | 2022-03-04 12:49 | PM.PSYDC ---
DS: Providers Provider Date of Service: 03/04/22 Date of admission: 02/18/22 13:44 Date of discharge: 03/04/22 Primary care physician: None Physician Admitting clinician: Ronda Garcia Consults: 02/18/22 20:39 Addiction Medicine Routine Consulting Provider: Santa Alcaraz Reason for consultation: wants BID dosing for suboxone Attending physician on discharge: Grey Rosario DS: Diagnosis Discharge Diagnosis (1) Bipolar 2 disorder: Status: Acute (2) Cocaine use disorder: Status: Acute (3) Alcohol use disorder, severe, dependence: Status: Acute (4) Opioid use disorder: Status: Acute DS: Medications Discharge Medications Home Medications: Home Medications Medication Instructions Recorded Confirmed buprenorphine 8 mg-naloxone 2 mg 2 strip SUBLINGUAL QAM 02/16/22 02/16/22 sublingual film Previous Rx's Medication Instructions Recorded buspirone 30 mg tablet 30 mg PO BID 30 Days #60 tab 03/04/22 chlorpromazine 100 mg tablet 100 mg PO BEDTIME 30 Days #30 tab 03/04/22 chlorpromazine 50 mg tablet 75 mg PO TID PRN 30 Days #135 tab 03/04/22 clonidine HCl 0.1 mg tablet 0.1 mg PO BID PRN 30 Days #60 tab 03/04/22 divalproex 250 mg tablet,extended 750 mg PO BEDTIME 30 Days #90 tab 03/04/22 release 24 hr docusate sodium 100 mg capsule 100 mg PO BID PRN 30 Days #60 cap 03/04/22 famotidine 20 mg tablet 20 mg PO BID 30 Days #60 tab 03/04/22 fluoxetine 20 mg capsule 20 mg PO DAILY 30 Days #30 cap 03/04/22 gabapentin 600 mg tablet 600 mg PO TID 30 Days #90 tab 03/04/22 mirtazapine 7.5 mg tablet 7.5 mg PO BEDTIME 30 Days #30 tab 03/04/22 nicotine (polacrilex) 2 mg gum 2 mg BUCCAL Q2H PRN 30 Days #100 ea 03/04/22 prazosin 1 mg capsule 1 mg PO BEDTIME 30 Days #30 cap 03/04/22 Mental Status Exam Mental Status Exam Narrative: A&O. Pt is cooperative, dressed in casual attire, appropriately groomed; no psychomotor restlessness;? good eye contact; No Tics or tremors. No abnormal involuntary movements. Speech regular rate,? volume and prosody. No prolonged speech latency or dysarthria. Mood is good affect congruent, more calm, brighter; no SI; no HI; No AH; Denies delusional thought content and none expressed. Thought process goal oriented and linear. Thought content on discharge and remaining stable. No known cognitive or memory impairment. Insight/ Judgment fair. DS: Summary Hospital Course Hospital Course: Bella is a 31 y.o. Female who carries a dx of Bipolar II DO, polysubstance abuse, and severe alcohol abuse. She has co-morbid diagnosis of hepatitis C. She presented to [facility] on 02/16/22 due to SI, depression, A/VH. Utox positive for opiates, fentanyl, an cocaine. EKG showed NSR, QTc 437. Li level <0.1. Ethyl alcohol level 22. Pt currently on MAT, suboxone.? On admission, patient still in withdrawal, depressed with passive SI.? She asks for something for anxiety and agrees to low-dose Thorazine For the next few days, patient remained depressed with passive SI, emotionally labile, excessively guilty.? Started her on Depakote since she has a diagnosis of bipolar disorder and her mother was reportedly successfully treated with Depakote; will Depakote was titrating patient developed a bilateral hand tremor but this resolved on its own. Patient's mood started to slowly improve and she was able to tolerate 1 on 1 therapy sessions more readily. She explained she has never had a therapist and has been afraid of talking about her history however sees the utility in this and wants to try. SI also started to resolve and patient became more hopeful. Review of history left bipolar disorder inconclusive. Because she has a history of manic episodes will diagnose her with a provisional bipolar disorder; however these manic episodes rarely lasted for 3 days and if they did last 3 days or more they were typically associated with substance abuse; auto service writer discussed this with patient and explained that both PTSD and substance abuse can combine to have similar presentation with bipolar; however, as pt is stabilizing on depakote and finds her mood liability severe she wanted to remain on Depakote while also adding Prozac which was started and titrated for PTSD and depression. Eventually patient's SI fully resolved. Her depression remained but her mood was better and she was starting to become optimistic about staying stable. Patient experienced in increasing flashbacks from history of trauma but was able to see it as progress, since she is now sober and no longer numbing her feelings and is also feeling more comfortable talking about and dealing with trauma that she has been in the past.? Has patient became stable, she was increasingly engaged in groups and demonstrated good impulse and behavioral control. She remained engaged in treatment and appropriate with peers and staff. Patient was contemplating going to a CSS/substance abuse program however she was able to reconcile with her boyfriend and instead was considering returning home. Patient demonstrated good insight and judgment and wanted to think about her options over the weekend, not wanting to make a impulsive decision. Patient weighed the pros and cons and decided to return home to her boyfriend. Patient in a significantly improved mood, without any SI or HI or AVH, optimistic about remained stable and staying sober. Auto Seat Cover Installer discussed patient's risk for relapse of which she is well aware; she will continue to work on her sobriety as an outpatient and knows that this will be a lifelong struggle. While patient remains at risk for relapse or decompensated at some point, she is currently stable and not in imminent risk of harm to herself or others. Patient's request for discharge honored. Auto Seat Cover Installer reviewed the risks/side effects of her medication regimen including, but not limited to, the risk of hepatotoxicity given history of hep C; pt understood the risks adn agreed to trial anyway; Lft's ordered which continued to trend towards normal. Patient's Depakote level was subtherapeutic, however she had significantly stabilized. Decision to leave dose at subtherapeutic level was made because while she remains with a provisional diagnosis of bipolar type 2 disorder, her history suggests that if she does have bipolar, it is mild and there remains a reasonable chance that her manic-type episodes are due to PTSD/substance abuse.? Also, given her history of hep C there is an effort to keep patient on lowest dose possible where she can be stable but also avoid associated risks/side effects of this mediation. Auto Seat Cover Installer discussed and patient fully agreed with this approach. Time spent discussing smoking cessation with patient: 3 to 10 minutes Status at Discharge Functional status at discharge: independent ambulation Overall status at discharge: patient is back to baseline Time Spent with Patient Time attestation: Total time spent providing and/or coordinating discharge services: Time spent: Greater than 30 minutes Discharge Plan Discharge Patient Disposition: Home, Self-Care Discharge Diagnosis: Bipolar disorder, type II, recurrent, moderate most recently depressed (Provisional dx) Referrals: [facility] [Other] - 06/14/22 1:40 pm (Patient will be a new patient and this is the earliest available. Patient may call on discharge to try and get in earlier.) [facility] [Other] - 03/05/22 12:00 pm (Initial Diagnostic evaluation with therapist Appointment in Office at [facility] ) [facility]ue[facility] [Other] - 04/01/22 9:00 am (Initial Psychiatric evaluation appointment Appointment is by tele-health check your email for a link to appointment) [facility] [Other] - 05/01/22 10:20 am (Medication Management Appointment Appointment is by tele-health. Patient will need to check her email for a link to the scheduled appointment.) [facility] [Other] - 03/04/22 3:15 pm (Appointment with [facility] for MAT treatment. ) Physician,None [Primary Care Provider] - 1 Week Discharge Medications: New nicotine (polacrilex) 2 mg Gum 2 mg buccal Q2H PRN (Reason: Nicotine Cravings) 30 Days Qty: 100 0RF clonidine HCl 0.1 mg Tablet 0.1 mg PO BID PRN (Reason: Anxiety) 30 Days Qty: 60 0RF Protocol: Hold for SBP< HOLD for SBP < : 90 prazosin 1 mg Capsule 1 mg PO BEDTIME 30 Days Qty: 30 0RF Protocol: Hold for SBP< HOLD for SBP < : 90 buspirone 30 mg tablet 30 mg PO BID 30 Days Qty: 60 0RF chlorpromazine 100 mg Tablet 100 mg PO BEDTIME 30 Days Qty: 30 0RF chlorpromazine 50 mg tablet 75 mg PO TID PRN (Reason: moderate to severe anxiety) 30 Days Qty: 135 0RF divalproex 250 mg Tablet Extended Release 24 Hr 750 mg PO BEDTIME 30 Days Qty: 90 0RF fluoxetine 20 mg Capsule 20 mg PO DAILY 30 Days Qty: 30 0RF gabapentin 600 mg Tablet 600 mg PO TID 30 Days Qty: 90 0RF mirtazapine 7.5 mg Tablet 7.5 mg PO BEDTIME 30 Days Qty: 30 0RF docusate sodium 100 mg Capsule 100 mg PO BID PRN (Reason: constipation) 30 Days Qty: 60 0RF famotidine 20 mg Tablet 20 mg PO BID 30 Days Qty: 60 0RF Discontinued buprenorphine-naloxone 8-2 mg film 2 strip sublingual QAM 0RF No Action buprenorphine-naloxone 8-2 mg film 3 film sublingual DAILY 7 Days Qty: 21 0RF Rx Instructions: place 1 film on inside of (each) cheek Discharge Orders: Discharge Order (Routine); Ordered 03/04/22 Ordered By: Grey Rosario Diet: regular diet Activity on Discharge: As tolerated Stand Alone Forms: Patient Portal Discharge page, Community Support Care Plan Goals: Maintain mood and safe behaviors Take medications as prescribed Continue to pursue sobriety Practice coping skills Continue with outpatient providers and reach out to them as needed Health Concerns: Mood stability and behaviors Sobriety Plan of Treatment: Follow up with your PCP, psychiatric provider and other outpatient providers regarding above concerns Take medications as prescribed Assessment: Risk assessment at time of discharge:? Patient was interviewed prior to discharge and found to be fully oriented and without any SI or HI. Patient has insight and demonstrates good judgment in terms of wanting to pursue treatment. Patient is not in imminent risk of harm to self or others and has a safety plan that includes presenting to the closest ER or calling 911 if feeling unsafe.? Patient has been observed closely by nursing and unit staff throughout admission; patient has not engaged in any behaviors that suggest dangerousness to self or others and has demonstrated appropriate behaviors and impulse control Discharge Date/Time: 03/04/22 15:00
[2022-03-04] MEDS: Naloxone HCl Nasal TAKE HOME 4 MG SPRAY NOSTRILALT (12:59)
== END 2022-03-04 15:00 | disposition home or self-care (01) | DRG 753 ==
LOC: HO.ED 16:58 → HO.PM5 02-18 13:51
PROVIDERS: Clinical Nurse Specialist Psychiatric/Mental Health, Adult; Physician Assistant; Registered Nurse; Admitting Provider Psychiatry & Neurology Psychiatry; Emergency Provider Emergency Medicine; Visit Provider Psychiatry & Neurology Psychiatry
DX: F31.81 Bipolar II disorder (principal); R45.851 Suicidal ideations; F10.20 Alcohol dependence, uncomplicated; F11.20 Opioid dependence, uncomplicated; F41.1 Generalized anxiety disorder; F14.10 Cocaine abuse, uncomplicated; Z20.822 Contact with and (suspected) exposure to COVID-19; F17.210 Nicotine dependence, cigarettes, uncomplicated; Z23 Encounter for immunization; Z71.6 Tobacco abuse counseling; Z79.899 Other long term (current) drug therapy
CPT/HCPCS: 36415; 80048; 80053; 80061; 80076; 80164; 80178; 80307; 81025; 82077; 82140; 82607; 82746; 83036; 83735; 84439; 84443; 85025; 87635; 90686; 93005; 99284; 99285

== ENCOUNTER → 2022-03-04 15:04 | Outpatient (BNVA) | payer OTHER, SELFPAY | PROVIDERS: Visit Provider Internal Medicine | DX: Z51.81 Encounter for therapeutic drug level monitoring (principal); F19.10 Other psychoactive substance abuse, uncomplicated; F11.20 Opioid dependence, uncomplicated | CPT/HCPCS: 80305; 99212 ==

== ENCOUNTER → 2022-03-12 13:43 | Outpatient (BNVA) | payer OTHER, SELFPAY | PROVIDERS: Visit Provider Internal Medicine | DX: F11.20 Opioid dependence, uncomplicated (principal); F10.20 Alcohol dependence, uncomplicated | CPT/HCPCS: 80305; 99212 ==

== ENCOUNTER 2022-03-12 17:31 | Outpatient (REF) | payer OTHER, SELFPAY ==
[2022-03-12 17:56] LABS: Fentanyl, urine POSITIVE (Not Detect)
== END 2022-03-12 17:32 | disposition home or self-care (01) ==
LOC: HO.LNP 17:31
PROVIDERS: Visit Provider Internal Medicine
DX: F10.20 Alcohol dependence, uncomplicated (principal)
CPT/HCPCS: 80307

== ENCOUNTER 2022-03-17 01:30 | Emergency (ER) | payer OTHER, SELFPAY ==
[2022-03-17] VITALS (9 sets, daily range): BP systolic 108–135; BP diastolic 45–84; PULSE 76–98; RESP 10–18; TEMP 36.7–36.9; O2SAT 95–100; BMI 23.9
--- NOTE | 2022-03-17 02:44 | ED_ITS ---
HPI - Psych General Chief Complaint: Psychiatric Symptoms Stated Complaint: SI Time Seen by Provider: 03/17/22 02:44 Source: patient Mode of arrival: ambulatory History of Present Illness HPI Narrative: 31-year-old female presents crying and stating that she had thoughts of wanting to kill herself and intentionally took 30-100 mg gabapentin, 10-5mg Valium, alcohol, and cocaine. She states that ?I just need to be committed. I need to go away?. Related Data Previous Rx's Medication Instructions Recorded buspirone 30 mg tablet 30 mg PO BID 30 Days #60 tab 03/04/22 chlorpromazine 100 mg tablet 100 mg PO BEDTIME 30 Days #30 tab 03/04/22 chlorpromazine 50 mg tablet 75 mg PO TID PRN 30 Days #135 tab 03/04/22 clonidine HCl 0.1 mg tablet 0.1 mg PO BID PRN 30 Days #60 tab 03/04/22 divalproex 250 mg tablet,extended 750 mg PO BEDTIME 30 Days #90 tab 03/04/22 release 24 hr docusate sodium 100 mg capsule 100 mg PO BID PRN 30 Days #60 cap 03/04/22 famotidine 20 mg tablet 20 mg PO BID 30 Days #60 tab 03/04/22 fluoxetine 20 mg capsule 20 mg PO DAILY 30 Days #30 cap 03/04/22 gabapentin 600 mg tablet 600 mg PO TID 30 Days #90 tab 03/04/22 mirtazapine 7.5 mg tablet 7.5 mg PO BEDTIME 30 Days #30 tab 03/04/22 nicotine (polacrilex) 2 mg gum 2 mg BUCCAL Q2H PRN 30 Days #100 ea 03/04/22 prazosin 1 mg capsule 1 mg PO BEDTIME 30 Days #30 cap 03/04/22 buprenorphine 8 mg-naloxone 2 mg 2 film SUBLINGUAL DAILY 7 Days #14 03/12/22 sublingual film ea Allergies Allergy/AdvReac Type Severity Reaction Status Date / Time No Known Allergies Allergy Verified 03/12/22 13:54 Review of Systems Review of Systems: Pertinent positives and negatives as stated in HPI 10 point review of systems is otherwise negative. PMFSH Past Medical History Source: nursing notes reviewed Medical History Alcohol use disorder, severe, dependence Alcohol use disorder, severe, dependence Cocaine use Cocaine use disorder Cocaine use disorder JOANN (generalized anxiety disorder) History of hepatitis C MDD (major depressive disorder), recurrent episode, moderate Opiate abuse, continuous Opioid use disorder Opioid use disorder, moderate, dependence Polysubstance abuse Smoker Surgical History S/P laparoscopic appendectomy Social History Social History Household Members: Significant Other Household Members Other:: ex boyfriend Housing: Apartment Housing Other:: Rented a room with ex in an apartment Do you presently have visiting nurse or other home services: No Alcohol intake: current Alcohol intake frequency: 3 or more drinks per day Alcohol type: hard liquor Patient Tobacco Use Status: Current everyday Tobacco user Tobacco use type: Cigarette Cigarette Packs Per Day: 0.75 Cigarettes Per Day: 20 Years Smoked: 13 e-Cigarette/Vaping Use: Currently Using Second Hand Smoke Exposure: Yes Use of substances other than those prescribed or required for medical reasons: Yes Substance Use Type: Crack/Cocaine and Heroin Substance Use Frequency: Daily Last Used Substance: Just Prior to Admission Advance Directives: No Advance Directives Information Provided: No service: No Current occupational status: unemployed Sexual orientation: Straight/Heterosexual Physical Exam Vital Signs: Vital Signs: Last Vital Signs Temp 98.4 F 03/17/22 01:36 Pulse 76 03/17/22 03:24 Resp 13 03/17/22 03:24 BP 110/66 03/17/22 03:09 Pulse Ox 95 03/17/22 03:24 BMI result Body Mass Index 23.9 VITAL SIGNS: Reviewed. GENERAL: Well developed, well nourished, in moderate distress. HEAD: Normocephalic/atraumatic EYES: PERRLA, EOMI EARS: Ext canals without abnormality OROPHARYNX: no oral lesions noted, posterior pharynx clear LUNGS: Normal breath sounds. No adventitious sounds or accessory muscle use. SpO2<95> CARDIOVASCULAR: Regular rate and rhythm without noted murmurs ABDOMEN: Soft, non-tender, non-distended with bowel sounds. MUSCULOSKELETAL: No tenderness, deformities, or effusions noted on gross inspe ction. EXTREMITIES: No cyanosis, clubbing or edema. SKIN: Inspection of the skin reveals no rashes NEUROLOGIC: Alert and oriented x 4. Strength and sensation to light touch were grossly intact x 4, cranial nerves 2-12 are grossly intact. PSYCH: Depressed affect, anxiety Course Course Course Narrative: 31-year-old female with history and clinical presentation consistent with underlying depression, by polar to with current suicidal ideation and attempt by overdosing on multiple medications. She is maintaining her own airway and is otherwise hemodynamically stable on review of all investigations there are no acute findings other than a low potassium which was repleted with 60 mEq of potassium chloride. Poison Control was called and notified about patient and the medications that she took and the recommendation is for 6 hours observation. Patient placed on one-to-one and capnography and will be medically cleared after the 6 hours as long as she is at baseline. Crisis team consult has been placed. Reevaluation(s) Reevaluation #1: Poison Control recommends Obs for 6hrs and ensure pt is at baseline. Time: 04:37 Reevaluation #2: Patient placed in physician observation because the patient needed more time for observation after overdose and evaluation by the crisis team At the time observation was started the patient's vital signs were stable, patient is alert and oriented, neuro: Nonfocal, CV RRR, lungs clear Time: 04:48 MDM - Psych Lab Data Result diagrams: 03/17/22 03:03 03/17/22 03:03 Labs: Lab Results 03/17/22 03/17/22 03/17/22 Range/Units 03:03 03:03 03:03 WBC 7.4 (4.8-10.8) X10*3/uL RBC 3.76 L (4.20-5.50) X10*6/uL Hgb 11.5 L (12.0-16.0) g/dl Hct 33.7 L (37.0-47.0) % MCV 89.6 (80.0-98.0) fL MCH 30.6 (27.0-33.0) pg MCHC 34.1 (31.0-35.0) g/dl RDW 12.7 (11.0-16.0) % Plt Count 217 (160-400) X10*3/uL MPV 10.3 (9.4-12.3) fL Immature Gran % (Auto) 0.1 (0.0-0.4) % Neut % (Auto) 44.8 L (45-73) % Lymph % (Auto) 44.7 H (20-40) % Mccreary % (Auto) 7.0 (2-11) % Eos % (Auto) 3.0 (0-4) % Baso % (Auto) 0.4 (0-2) % Lymph # (Auto) 3.3 (1.2-4.9) X10*3/uL Mccreary # (Auto) 0.5 (0.1-1.2) X10*3/uL Eos # (Auto) 0.2 (0.0-0.4) X10*3/uL Baso # (Auto) 0.0 (0.0-0.2) X10*3/uL Abs Immat Gran (auto) 0.01 (0.00-0.03) X10*3/uL Absolute Neuts (auto) 3.3 (2.0-8.3) x10*3/uL Absolute Nucleated RBC 0.000 (0.0-0.012) X10*3/uL Nucleated RBC % (auto) 0.0 (0.0-0.2) /100WBC PT (9.9-13.0) SEC INR (0.9-1.1) APTT (24.1-38.0) SEC Sodium (135-145) mmol/L Potassium (3.3-5.1) mmol/L Chloride (96-108) mmol/L Carbon Dioxide (22-29) mmol/L Anion Gap (12-20) BUN (9-16) mg/dL Creatinine (0.5-1.4) mg/dL Estim Creat Clear Calc Estimated GFR Random Glucose (60-115) mg/dL Calcium (8.4-10.2) mg/dL Magnesium (1.6-2.6) mg/dL Total Bilirubin (0.0-1.0) mg/dL AST (5-31) U/L ALT (0-31) U/L Alkaline Phosphatase (39-117) U/L Total Protein (6.5-8.0) g/dL Albumin (3.5-5.0) g/dL Urine Color Urine Appearance Urine pH (5.0-8.0) Ur Specific [place] (1.005-1.025) Urine Protein (NEG-TRACE) MG/DL Urine Glucose (UA) (NEG) MG/DL Urine Ketones (NEG) MG/DL Urine Blood (NEG) Urine Nitrite (NEG) Ur Leukocyte Esterase (NEG) Urine Test (NEGATIVE) Urine Opiates Screen (Not Detect) Urine Fentanyl Screen (Not Detect) Ur Barbiturates Screen (Not Detect) Ur Phencyclidine Scrn (Not Detect) Ur Amphetamines Screen (Not Detect) U Benzodiazepines Scrn (Not Detect) Urine Cocaine Screen (Not Detect) U Marijuana (THC) Screen (Not Detect) Ethyl Alcohol 88 mg/dL COVID-19 (ALBA) Negative (Negative) COVID-19 Clin Com See Note 03/17/22 03/17/22 03/17/22 Range/Units 03:03 03:03 03:22 WBC (4.8-10.8) X10*3/uL RBC (4.20-5.50) X10*6/uL Hgb (12.0-16.0) g/dl Hct (37.0-47.0) % MCV (80.0-98.0) fL MCH (27.0-33.0) pg MCHC (31.0-35.0) g/dl RDW (11.0-16.0) % Plt Count (160-400) X10*3/uL MPV (9.4-12.3) fL Immature Gran % (Auto) (0.0-0.4) % Neut % (Auto) (45-73) % Lymph % (Auto) (20-40) % Mccreary % (Auto) (2-11) % Eos % (Auto) (0-4) % Baso % (Auto) (0-2) % Lymph # (Auto) (1.2-4.9) X10*3/uL Mccreary # (Auto) (0.1-1.2) X10*3/uL Eos # (Auto) (0.0-0.4) X10*3/uL Baso # (Auto) (0.0-0.2) X10*3/uL Abs Immat Gran (auto) (0.00-0.03) X10*3/uL Absolute Neuts (auto) (2.0-8.3) x10*3/uL Absolute Nucleated RBC (0.0-0.012) X10*3/uL Nucleated RBC % (auto) (0.0-0.2) /100WBC PT 11.7 (9.9-13.0) SEC INR 1.0 (0.9-1.1) APTT 34.4 (24.1-38.0) SEC Sodium 134 L (135-145) mmol/L Potassium 3.1 L D (3.3-5.1) mmol/L Chloride 94 L (96-108) mmol/L Carbon Dioxide 25 (22-29) mmol/L Anion Gap 18 (12-20) BUN 11 (9-16) mg/dL Creatinine 0.79 (0.5-1.4) mg/dL Estim Creat Clear Calc 85.3 Estimated GFR > 60 Random Glucose 85 (60-115) mg/dL Calcium 9.5 (8.4-10.2) mg/dL Magnesium 2.0 (1.6-2.6) mg/dL Total Bilirubin 0.4 (0.0-1.0) mg/dL AST 32 H (5-31) U/L ALT 23 (0-31) U/L Alkaline Phosphatase 74 (39-117) U/L Total Protein 7.1 (6.5-8.0) g/dL Albumin 4.4 D (3.5-5.0) g/dL Urine Color STRAW Urine Appearance CLEAR Urine pH 5.5 (5.0-8.0) Ur Specific [place] <= 1.005 (1.005-1.025) Urine Protein NEG (NEG-TRACE) MG/DL Urine Glucose (UA) NEG (NEG) MG/DL Urine Ketones NEG (NEG) MG/DL Urine Blood NEG (NEG) Urine Nitrite NEG (NEG) Ur Leukocyte Esterase NEG (NEG) Urine Test (NEGATIVE) Urine Opiates Screen (Not Detect) Urine Fentanyl Screen (Not Detect) Ur Barbiturates Screen (Not Detect) Ur Phencyclidine Scrn (Not Detect) Ur Amphetamines Screen (Not Detect) U Benzodiazepines Scrn (Not Detect) Urine Cocaine Screen (Not Detect) U Marijuana (THC) Screen (Not Detect) Ethyl Alcohol mg/dL COVID-19 (ALBA) (Negative) COVID-19 Clin Com 03/17/22 03/17/22 Range/Units 03:22 03:22 WBC (4.8-10.8) X10*3/uL RBC (4.20-5.50) X10*6/uL Hgb (12.0-16.0) g/dl Hct (37.0-47.0) % MCV (80.0-98.0) fL MCH (27.0-33.0) pg MCHC (31.0-35.0) g/dl RDW (11.0-16.0) % Plt Count (160-400) X10*3/uL MPV (9.4-12.3) fL Immature Gran % (Auto) (0.0-0.4) % Neut % (Auto) (45-73) % Lymph % (Auto) (20-40) % Mccreary % (Auto) (2-11) % Eos % (Auto) (0-4) % Baso % (Auto) (0-2) % Lymph # (Auto) (1.2-4.9) X10*3/uL Mccreary # (Auto) (0.1-1.2) X10*3/uL Eos # (Auto) (0.0-0.4) X10*3/uL Baso # (Auto) (0.0-0.2) X10*3/uL Abs Immat Gran (auto) (0.00-0.03) X10*3/uL Absolute Neuts (auto) (2.0-8.3) x10*3/uL Absolute Nucleated RBC (0.0-0.012) X10*3/uL Nucleated RBC % (auto) (0.0-0.2) /100WBC PT (9.9-13.0) SEC INR (0.9-1.1) APTT (24.1-38.0) SEC Sodium (135-145) mmol/L Potassium (3.3-5.1) mmol/L Chloride (96-108) mmol/L Carbon Dioxide (22-29) mmol/L Anion Gap (12-20) BUN (9-16) mg/dL Creatinine (0.5-1.4) mg/dL Estim Creat Clear Calc Estimated GFR Random Glucose (60-115) mg/dL Calcium (8.4-10.2) mg/dL Magnesium (1.6-2.6) mg/dL Total Bilirubin (0.0-1.0) mg/dL AST (5-31) U/L ALT (0-31) U/L Alkaline Phosphatase (39-117) U/L Total Protein (6.5-8.0) g/dL Albumin (3.5-5.0) g/dL Urine Color Urine Appearance Urine pH (5.0-8.0) Ur Specific [place] (1.005-1.025) Urine Protein (NEG-TRACE) MG/DL Urine Glucose (UA) (NEG) MG/DL Urine Ketones (NEG) MG/DL Urine Blood (NEG) Urine Nitrite (NEG) Ur Leukocyte Esterase (NEG) Urine Test NEGATIVE (NEGATIVE) Urine Opiates Screen POSITIVE H (Not Detect) Urine Fentanyl Screen POSITIVE H (Not Detect) Ur Barbiturates Screen Not Detected (Not Detect) Ur Phencyclidine Scrn Not Detected (Not Detect) Ur Amphetamines Screen Not Detected (Not Detect) U Benzodiazepines Scrn POSITIVE H (Not Detect) Urine Cocaine Screen POSITIVE H (Not Detect) U Marijuana (THC) Screen Not Detected (Not Detect) Ethyl Alcohol mg/dL COVID-19 (ALBA) (Negative) COVID-19 Clin Com ECG Data Attestation: I personally reviewed and interpreted this ECG as follows: Prior ECG tracings: available for review Interpretation: NSR, HR-80, no STEMI, UT/QRS/QTC are within normal limits. Discharge Plan Discharge Clinical Impression: Substance use disorder, Depression, Suicidal ideation, Intentional overdose, Suicide attempt, Bipolar 2 disorder Patient Disposition: Still a Patient Prescriptions: No Action nicotine (polacrilex) 2 mg Gum 2 mg buccal Q2H PRN (Reason: Nicotine Cravings) 30 Days Qty: 100 0RF clonidine HCl 0.1 mg Tablet 0.1 mg PO BID PRN (Reason: Anxiety) 30 Days Qty: 60 0RF Protocol: Hold for SBP< HOLD for SBP < : 90 prazosin 1 mg Capsule 1 mg PO BEDTIME 30 Days Qty: 30 0RF Protocol: Hold for SBP< HOLD for SBP < : 90 buspirone 30 mg tablet 30 mg PO BID 30 Days Qty: 60 0RF chlorpromazine 100 mg Tablet 100 mg PO BEDTIME 30 Days Qty: 30 0RF chlorpromazine 50 mg tablet 75 mg PO TID PRN (Reason: moderate to severe anxiety) 30 Days Qty: 135 0RF divalproex 250 mg Tablet Extended Release 24 Hr 750 mg PO BEDTIME 30 Days Qty: 90 0RF fluoxetine 20 mg Capsule 20 mg PO DAILY 30 Days Qty: 30 0RF gabapentin 600 mg Tablet 600 mg PO TID 30 Days Qty: 90 0RF mirtazapine 7.5 mg Tablet 7.5 mg PO BEDTIME 30 Days Qty: 30 0RF docusate sodium 100 mg Capsule 100 mg PO BID PRN (Reason: constipation) 30 Days Qty: 60 0RF famotidine 20 mg Tablet 20 mg PO BID 30 Days Qty: 60 0RF buprenorphine-naloxone 8-2 mg film 2 film sublingual DAILY 7 Days Qty: 14 0RF Rx Instructions: place 1 film on inside of (each) cheek
--- NOTE | 2022-03-17 02:47 | ECG_ITS ---
Test Reason : MED INGESTION Blood Pressure : / mmHG Vent. Rate : 080 BPM Atrial Rate : 080 BPM P-R Int : 156 ms QRS Dur : 090 ms QT Int : 404 ms P-R-T Axes : 061 053 016 degrees QTc Int : 465 ms Normal sinus rhythm Normal ECG When compared with ECG of 16-FEB-2022 19:51, Criteria for Septal infarct are no longer Present T wave inversion now evident in Inferior leads Referred By: Elisa Najera Electronically Signed By:Jonny Jeffers
[2022-03-17 03:55] LABS: Basophils Percent Auto 0.4 % (0-2); Eosinophils Absolute Auto 0.2 X10*3/uL (0.0-0.4); Hematocrit 33.7 % (37.0-47.0); Hemoglobin 11.5 g/dl (12.0-16.0); Imm Gran Abs Auto 0.01 X10*3/uL (0.00-0.03); Imm Gran Pct Auto 0.1 % (0.0-0.4); Lymphocytes Absolute Auto 3.3 X10*3/uL (1.2-4.9); Lymphocytes Percent Auto 44.7 % (20-40); MANUAL DIFF FLAG NO; Mean Corpuscular HGB Conc 34.1 g/dl (31.0-35.0); Mean Corpuscular Hemoglobin 30.6 pg (27.0-33.0); Mean Corpuscular Volume 89.6 fL (80.0-98.0); Mean Platelet Volume 10.3 fL (9.4-12.3); Monocytes Absolute Auto 0.5 X10*3/uL (0.1-1.2); Neutrophils Absolute Auto 3.3 x10*3/uL (2.0-8.3); Neutrophils Percent Auto 44.8 % (45-73); Platelet Count 217 X10*3/uL (160-400); Red Blood Count 3.76 X10*6/uL (4.20-5.50); Red Cell Distribution Width 12.7 % (11.0-16.0); White Blood Count 7.4 X10*3/uL (4.8-10.8)
[2022-03-17 03:58] LABS: Appearance Urine CLEAR; Color Urine STRAW; Glucose Urine UA NEG (NEG); Leukocyte Esterase Urine NEG (NEG); Nitrite Urine NEG (NEG); PH 5.5 (5.0-8.0); Specific Gravity - Urine <= 1.005 (1.005-1.025); Urine Blood NEG (NEG); Urine Ketones NEG (NEG); Urine Protein NEG (NEG-TRACE)
[2022-03-17 04:00] LABS: UPreg QC Valid YES; Urine Pregnancy NEGATIVE (NEGATIVE)
[2022-03-17 04:07] LABS: Prothrombin Time 11.7 SEC (9.9-13.0)
[2022-03-17 04:09] LABS: Ethanol 88 mg/dL
[2022-03-17 04:10] LABS: Partial Thromboplastin Time 34.4 SEC (24.1-38.0)
[2022-03-17 04:11] LABS: Amphetamine Screen Urine Not Detected (Not Detect); Barbiturates, Urine Not Detected (Not Detect); Benzodiazepines Screen Urine POSITIVE (Not Detect); Cannabinoid Screen Urine Not Detected (Not Detect); Cocaine Screen Urine POSITIVE (Not Detect); Fentanyl, urine POSITIVE (Not Detect); Opiate Screen Urine POSITIVE (Not Detect); Phencyclidine Screen Urine Not Detected (Not Detect)
[2022-03-17 04:11] LABS: COVID-19 Test Negative (Negative)
[2022-03-17 04:12] LABS: Alanine Aminotransferase 23 U/L (0-31); Albumin Level 4.4 g/dL (3.5-5.0); Alkaline Phosphatase 74 U/L (39-117); Anion Gap 18 (12-20); Aspartate Amino Transferase 32 U/L (5-31); Bilirubin Total 0.4 mg/dL (0.0-1.0); Blood Urea Nitrogen 11 mg/dL (9-16); Calcium 9.5 mg/dL (8.4-10.2); Carbon Dioxide 25 mmol/L (22-29); Chloride 94 mmol/L (96-108); Creatinine Clr Calc Pharmacy 85.3; Estimated Glomerular Filt Rate > 60; Glucose Random 85 mg/dL (60-115); Potassium 3.1 mmol/L (3.3-5.1); Sodium 134 mmol/L (135-145); Total Protein 7.1 g/dL (6.5-8.0)
--- NOTE | 2022-03-17 04:38 | PC.NURSE ---
Poison control contacted, spoke with [place]. Recommendations discussed with Dr. Najera, will add serum tox and observe patient for 6 hours.
[2022-03-17] MEDS: Potassium Chloride ER 20 MEQ TAB.ER.PRT 60 MEQ PO (04:48)
[2022-03-17 04:53] LABS: Acetaminophen LAB < 1 mcg/mL (<30); Salicylate < 5.0 mg/dL (15-30)
[2022-03-17] MEDS: 0.9 % Sodium Chloride 1,000 ML 999 ML IV (05:00)
--- NOTE | 2022-03-17 10:23 | PC.NURSE ---
Care team at bedside, pt aware of plan of care.
--- NOTE | 2022-03-17 13:20 | PC.NURSE ---
rn to rn report given to iam shah pt aware of plan of care for transfer to ed pod. pt transfered to pod with security and pct.
--- NOTE | 2022-03-17 14:04 | PHA.MEDREC ---
Pharmacy Consult ? Medication Reconciliation Pharmacy has completed the medication reconciliation. Spoke with pt. She says takes the medications that she was discharged on previous admit.
[2022-03-17] MEDS: Famotidine 20 MG TABLET PO (21:45)
[2022-03-17] MEDS: busPIRone HCl 10 MG TABLET 30 MG PO (21:45)
[2022-03-17] MEDS: Mirtazapine 7.5 MG TABLET PO (21:45)
--- NOTE | 2022-03-17 21:52 | PC.NURSE ---
pharmacy called for meds not available in the pyxis.
[2022-03-17] MEDS: Divalproex Sodium ER 250 MG TAB.ER.24H 750 MG PO (22:15)
[2022-03-17] MEDS: Prazosin HCL 1 MG CAPSULE PO (22:16)
[2022-03-17] MEDS: chlorproMAZINE HCl 100 MG TABLET PO (22:20)
[2022-03-18 03:08] VITALS: BP 118/67; PULSE 98; RESP 16; TEMP 36.8; O2SAT 97
--- NOTE | 2022-03-18 07:42 | PC.NURSE ---
patient appears to remain asleep at present respirations are even and unlabored patient appears in no distress
--- NOTE | 2022-03-18 12:12 | MHC.CARE ---
Patient accepted at [facility] for 1:00pm admission Auth: Radha 5 days [id number], left message with intake dept to call CARE Team back for information
[2022-03-18] MEDS: Buprenorphine/Naloxone 8/2 mg FILM 2 FILM SUBLINGUAL (13:04)
[2022-03-18] MEDS: busPIRone HCl 10 MG TABLET 30 MG PO (13:05)
[2022-03-18] MEDS: Famotidine 20 MG TABLET PO (13:05)
[2022-03-18] MEDS: FLUoxetine HCl 20 MG CAPSULE PO (13:05)
== END 2022-03-18 14:01 | disposition other institution (70) ==
PROVIDERS: Emergency Provider Student in an Organized Health Care Education/Training Program
DX: T42.6X2A Poisoning by other antiepileptic and sedative-hypnotic drugs, intentional self-harm, initial encounter (principal); T42.4X2A Poisoning by benzodiazepines, intentional self-harm, initial encounter; F10.20 Alcohol dependence, uncomplicated; F11.20 Opioid dependence, uncomplicated; F14.90 Cocaine use, unspecified, uncomplicated; F31.81 Bipolar II disorder; F32.A Depression, unspecified; Y92.9 Unspecified place or not applicable
CPT/HCPCS: 36415; 80053; 80143; 80179; 80307; 81003; 81025; 82077; 83735; 85025; 85610; 85730; 87635; 93005; 96360; 99285

== ENCOUNTER → 2022-03-26 08:58 | Outpatient (BNVA) | payer OTHER, SELFPAY | PROVIDERS: Visit Provider Internal Medicine | DX: F11.20 Opioid dependence, uncomplicated (principal) | CPT/HCPCS: 80305; 99211 ==

== ENCOUNTER → 2022-04-02 08:53 | Outpatient (BNVA) | payer OTHER, SELFPAY | PROVIDERS: Visit Provider Internal Medicine | DX: F11.20 Opioid dependence, uncomplicated (principal) | CPT/HCPCS: 80305; 99211 ==

== ENCOUNTER → 2022-04-09 13:27 | Outpatient (BNVA) | payer OTHER, SELFPAY | PROVIDERS: Visit Provider Internal Medicine | DX: Z51.81 Encounter for therapeutic drug level monitoring (principal); F11.20 Opioid dependence, uncomplicated | CPT/HCPCS: 80305; 99211 ==

== ENCOUNTER 2022-04-27 05:10 | Inpatient (IN) | payer OTHER, SELFPAY ==
[2022-04-27 05:18] VITALS: BP 118/69; PULSE 85; RESP 17; TEMP 36.6; O2SAT 99; BMI 23.9
[2022-04-27 05:45] LABS: Amphetamine Screen Urine Not Detected (Not Detect); Appearance Urine CLEAR; Barbiturates, Urine Not Detected (Not Detect); Benzodiazepines Screen Urine Not Detected (Not Detect); Cannabinoid Screen Urine Not Detected (Not Detect); Cocaine Screen Urine POSITIVE (Not Detect); Color Urine YELLOW; Fentanyl, urine POSITIVE (Not Detect); Glucose Urine UA NEG (NEG); Leukocyte Esterase Urine NEG (NEG); Nitrite Urine NEG (NEG); Opiate Screen Urine Not Detected (Not Detect); Phencyclidine Screen Urine Not Detected (Not Detect); Specific Gravity - Urine 1.015 (1.005-1.025); Urine Blood NEG (NEG); Urine Ketones 15 MG/DL (NEG); Urine Protein NEG (NEG-TRACE)
[2022-04-27 05:47] LABS: UPreg QC Valid YES; Urine Pregnancy NEGATIVE (NEGATIVE)
[2022-04-27 05:47] LABS: Basophils Percent Auto 0.3 % (0-2); Eosinophils Absolute Auto 0.1 X10*3/uL (0.0-0.4); Eosinophils Percent Auto 1.2 % (0-4); Hematocrit 38.5 % (37.0-47.0); Imm Gran Abs Auto 0.01 X10*3/uL (0.00-0.03); Imm Gran Pct Auto 0.1 % (0.0-0.4); Lymphocytes Absolute Auto 1.3 X10*3/uL (1.2-4.9); Lymphocytes Percent Auto 17.5 % (20-40); MANUAL DIFF FLAG NO; Mean Corpuscular HGB Conc 33.8 g/dl (31.0-35.0); Mean Corpuscular Hemoglobin 30.7 pg (27.0-33.0); Mean Corpuscular Volume 90.8 fL (80.0-98.0); Mean Platelet Volume 10.1 fL (9.4-12.3); Monocytes Absolute Auto 0.3 X10*3/uL (0.1-1.2); Monocytes Percent Auto 4.4 % (2-11); Neutrophils Absolute Auto 5.7 x10*3/uL (2.0-8.3); Neutrophils Percent Auto 76.5 % (45-73); Platelet Count 176 X10*3/uL (160-400); Red Blood Count 4.24 X10*6/uL (4.20-5.50); Red Cell Distribution Width 13.6 % (11.0-16.0); White Blood Count 7.5 X10*3/uL (4.8-10.8)
[2022-04-27 06:03] LABS: Ethanol < 10 mg/dL
[2022-04-27 06:06] LABS: COVID-19 Test Negative (Negative)
[2022-04-27 06:07] LABS: Acetaminophen LAB < 1 mcg/mL (<30); Anion Gap 14 (12-20); Blood Urea Nitrogen 10 mg/dL (9-16); Calcium 10.2 mg/dL (8.4-10.2); Carbon Dioxide 24 mmol/L (22-29); Chloride 101 mmol/L (96-108); Creatinine Clr Calc Pharmacy 82.2; Estimated Glomerular Filt Rate > 60; Glucose Random 91 mg/dL (60-115); Potassium 3.8 mmol/L (3.3-5.1); Salicylate < 5.0 mg/dL (15-30); Sodium 135 mmol/L (135-145)
--- NOTE | 2022-04-27 06:34 | PC.NURSE ---
Patient slept through the night, no distress observed/reported, patient is off her medication for over a year/currently not on any medication, behavior non concerning at this time, [facility] referral completed/confirmed/pending evaluation in the morning, VSS, will continue to monitor.
--- NOTE | 2022-04-27 06:42 | ED.PSYCH ---
HPI - Psych General Chief Complaint: Psychiatric Symptoms Stated Complaint: crisis Time Seen by Provider: 04/27/22 06:42 Source: patient Mode of arrival: EMS Limitations: no limitations History of Present Illness MD complaint: suicidal ideation and feels depressed Onset (ago): week(s) Duration: getting worse History of same: Yes Relieving factors: none Exacerbating factors: drug use Context: recent drug abuse and not taking psychiatric medications Associated psychiatric symptoms: depression and suicidal ideation Associated symptoms: denies other symptoms Treatments prior to arrival: none If self harm: admits thoughts of self harm and has plan Related Data Home Medications Medication Instructions Recorded Confirmed buprenorphine 8 mg-naloxone 2 mg 3 film SUBLINGUAL DAILY 04/27/22 04/27/22 sublingual film buspirone 30 mg tablet 30 mg PO BID 04/27/22 04/27/22 chlorpromazine 100 mg tablet 100 mg PO BEDTIME 04/27/22 04/27/22 divalproex 250 mg tablet,extended 750 mg PO BEDTIME 04/27/22 04/27/22 release 24 hr (Depakote ER) fluoxetine 10 mg tablet 10 mg PO TID 04/27/22 04/27/22 gabapentin 300 mg capsule 600 mg PO BID 04/27/22 04/27/22 mirtazapine 7.5 mg tablet 7.5 mg PO BEDTIME 04/27/22 04/27/22 prazosin 1 mg capsule 1 mg PO BEDTIME 04/27/22 04/27/22 propranolol 10 mg tablet 10 mg PO TID PRN 04/27/22 04/27/22 Allergies Allergy/AdvReac Type Severity Reaction Status Date / Time No Known Allergies Allergy Verified 03/12/22 13:54 Review of Systems Review of Systems: Constitutional : No Fever, No Chills ENT/Mouth : No Ear Pain, No Nasal Congestion, No sore throat Eyes: No Eye Pain, No Swelling, No Redness Cardiovascular : No Chest Pain, No SOB Respiratory : No Cough, No Sputum, No Dyspnea Gastrointestinal : No Nausea, No Vomiting, No Diarrhea, No Hematochezia, No Melena Genitourinary : No Dysuria, No Urinary Frequency, No Hematuria Musculoskeletal : No Myalgias Skin : No Skin Lesions, No rash Neuro : No Weakness, No Numbness, No Paresthesias, No Dizziness, No Headache Psych : positive Anxiety, positive Depression, positive SI no HI Heme/Lymph: No Lymphadenopathy Endocrine : No Polyuria, No Polydipsia All other systems reviewed and are negative [facility] Past Medical History Attestation statement: The following information was validated with the patient. Medical History Alcohol use disorder, severe, dependence Alcohol use disorder, severe, dependence Cocaine use Cocaine use disorder Cocaine use disorder JOANN (generalized anxiety disorder) History of hepatitis C MDD (major depressive disorder), recurrent episode, moderate Opiate abuse, continuous Opioid use disorder Opioid use disorder, moderate, dependence Polysubstance abuse Smoker Surgical History S/P laparoscopic appendectomy Social History Social History Household Members: Significant Other Household Members Other:: ex boyfriend Housing: Apartment Housing Other:: Rented a room with ex in an apartment Do you presently have visiting nurse or other home services: No Alcohol intake: current Alcohol intake frequency: 3 or more drinks per day Alcohol type: hard liquor Patient Tobacco Use Status: Current everyday Tobacco user Tobacco use type: Cigarette Cigarette Packs Per Day: 0.75 Cigarettes Per Day: 20 Years Smoked: 13 e-Cigarette/Vaping Use: Currently Using Second Hand Smoke Exposure: Yes Substance Use Type: Crack/Cocaine and Heroin Advance Directives: No Advance Directives Information Provided: No service: No Current occupational status: unemployed Sexual orientation: Straight/Heterosexual Physical Exam Vital Signs: Vital Signs: Last Vital Signs Temp 98.7 F 04/27/22 14:01 Pulse 82 04/27/22 14:01 Resp 15 04/27/22 14:01 BP 101/64 04/27/22 14:01 Pulse Ox 99 04/27/22 14:01 BMI result Body Mass Index 23.9 Appearance: Alert. Oriented X3. No acute distress. Anxious Eyes: Pupils equal, round and reactive to light. ENT: Pharynx normal. Neck: Normal inspection. Neck supple. CVS: Normal heart rate and rhythm. Pulses normal. Respiratory: No respiratory distress. Breath sounds normal. Abdomen: Soft and non-tender. Skin: Skin warm and dry. Normal skin color. Normal skin turgor. Extremities: No lower extremity edema. No calf ttp Neuro: Oriented X 3. No motor deficit. No sensory deficit. Cn2-12 intact Course Course Course Narrative: Physician observation started at 702am. Patient placed in physician observation because the patient needed more time for BHN to assess the need for psych admission. At the time observation was started the patient's vitals were stable, patient is alert and oriented but slightly anxious, Neuro: nonfocal, CV RRR, Lungs clear inpatient bed search MDM - Psych MDM Narrative Medical decision making narrative: 31 yo female with hx of substance abuse and bipolar disorder using drugs and not taking medications with c/o depression and SI at this time will need labs and BHN consult Lab Data Result diagrams: 04/27/22 05:42 04/27/22 05:42 Labs: Lab Results 04/27/22 04/27/22 04/27/22 Range/Units 05:25 05:25 05:25 WBC (4.8-10.8) X10*3/uL RBC (4.20-5.50) X10*6/uL Hgb (12.0-16.0) g/dl Hct (37.0-47.0) % MCV (80.0-98.0) fL MCH (27.0-33.0) pg MCHC (31.0-35.0) g/dl RDW (11.0-16.0) % Plt Count (160-400) X10*3/uL MPV (9.4-12.3) fL Immature Gran % (Auto) (0.0-0.4) % Neut % (Auto) (45-73) % Lymph % (Auto) (20-40) % Garrett % (Auto) (2-11) % Eos % (Auto) (0-4) % Baso % (Auto) (0-2) % Lymph # (Auto) (1.2-4.9) X10*3/uL [place] # (Auto) (0.1-1.2) X10*3/uL Eos # (Auto) (0.0-0.4) X10*3/uL Baso # (Auto) (0.0-0.2) X10*3/uL Abs Immat Gran (auto) (0.00-0.03) X10*3/uL Absolute Neuts (auto) (2.0-8.3) x10*3/uL Absolute Nucleated RBC (0.0-0.012) X10*3/uL Nucleated RBC % (auto) (0.0-0.2) /100WBC Sodium (135-145) mmol/L Potassium (3.3-5.1) mmol/L Chloride (96-108) mmol/L Carbon Dioxide (22-29) mmol/L Anion Gap (12-20) BUN (9-16) mg/dL Creatinine (0.5-1.4) mg/dL Estim Creat Clear Calc Estimated GFR Random Glucose (60-115) mg/dL Calcium (8.4-10.2) mg/dL Urine Color YELLOW Urine Appearance CLEAR Urine pH 6.0 (5.0-8.0) Ur Specific [place] 1.015 (1.005-1.025) Urine Protein NEG (NEG-TRACE) MG/DL Urine Glucose (UA) NEG (NEG) MG/DL Urine Ketones 15 (NEG) MG/DL Urine Blood NEG (NEG) Urine Nitrite NEG (NEG) Ur Leukocyte Esterase NEG (NEG) Urine Test (NEGATIVE) Salicylates (15-30) mg/dL Urine Opiates Screen Not Detected (Not Detect) Urine Fentanyl Screen POSITIVE H (Not Detect) Acetaminophen (<30) mcg/mL Ur Barbiturates Screen Not Detected (Not Detect) Ur Phencyclidine Scrn Not Detected (Not Detect) Ur Amphetamines Screen Not Detected (Not Detect) U Benzodiazepines Scrn Not Detected (Not Detect) Urine Cocaine Screen POSITIVE H (Not Detect) U Marijuana (THC) Screen Not Detected (Not Detect) Ethyl Alcohol mg/dL COVID-19 (ALBA) Negative (Negative) COVID-19 Clin Com See Note 04/27/22 04/27/22 04/27/22 Range/Units 05:25 05:42 05:42 WBC 7.5 (4.8-10.8) X10*3/uL RBC 4.24 (4.20-5.50) X10*6/uL Hgb 13.0 (12.0-16.0) g/dl Hct 38.5 (37.0-47.0) % MCV 90.8 (80.0-98.0) fL MCH 30.7 (27.0-33.0) pg MCHC 33.8 (31.0-35.0) g/dl RDW 13.6 (11.0-16.0) % Plt Count 176 (160-400) X10*3/uL MPV 10.1 (9.4-12.3) fL Immature Gran % (Auto) 0.1 (0.0-0.4) % Neut % (Auto) 76.5 H (45-73) % Lymph % (Auto) 17.5 L (20-40) % Garrett % (Auto) 4.4 (2-11) % Eos % (Auto) 1.2 (0-4) % Baso % (Auto) 0.3 (0-2) % Lymph # (Auto) 1.3 (1.2-4.9) X10*3/uL [place] # (Auto) 0.3 (0.1-1.2) X10*3/uL Eos # (Auto) 0.1 (0.0-0.4) X10*3/uL Baso # (Auto) 0.0 (0.0-0.2) X10*3/uL Abs Immat Gran (auto) 0.01 (0.00-0.03) X10*3/uL Absolute Neuts (auto) 5.7 (2.0-8.3) x10*3/uL Absolute Nucleated RBC 0.000 (0.0-0.012) X10*3/uL Nucleated RBC % (auto) 0.0 (0.0-0.2) /100WBC Sodium 135 (135-145) mmol/L Potassium 3.8 D (3.3-5.1) mmol/L Chloride 101 (96-108) mmol/L Carbon Dioxide 24 (22-29) mmol/L Anion Gap 14 (12-20) BUN 10 (9-16) mg/dL Creatinine 0.82 (0.5-1.4) mg/dL Estim Creat Clear Calc 82.2 Estimated GFR > 60 Random Glucose 91 (60-115) mg/dL Calcium 10.2 D (8.4-10.2) mg/dL Urine Color Urine Appearance Urine pH (5.0-8.0) Ur Specific [place] (1.005-1.025) Urine Protein (NEG-TRACE) MG/DL Urine Glucose (UA) (NEG) MG/DL Urine Ketones (NEG) MG/DL Urine Blood (NEG) Urine Nitrite (NEG) Ur Leukocyte Esterase (NEG) Urine Test NEGATIVE (NEGATIVE) Salicylates < 5.0 L (15-30) mg/dL Urine Opiates Screen (Not Detect) Urine Fentanyl Screen (Not Detect) Acetaminophen < 1 (<30) mcg/mL Ur Barbiturates Screen (Not Detect) Ur Phencyclidine Scrn (Not Detect) Ur Amphetamines Screen (Not Detect) U Benzodiazepines Scrn (Not Detect) Urine Cocaine Screen (Not Detect) U Marijuana (THC) Screen (Not Detect) Ethyl Alcohol mg/dL COVID-19 (ALBA) (Negative) COVID-19 Clin Com 04/27/22 Range/Units 05:42 WBC (4.8-10.8) X10*3/uL RBC (4.20-5.50) X10*6/uL Hgb (12.0-16.0) g/dl Hct (37.0-47.0) % MCV (80.0-98.0) fL MCH (27.0-33.0) pg MCHC (31.0-35.0) g/dl RDW (11.0-16.0) % Plt Count (160-400) X10*3/uL MPV (9.4-12.3) fL Immature Gran % (Auto) (0.0-0.4) % Neut % (Auto) (45-73) % Lymph % (Auto) (20-40) % Garrett % (Auto) (2-11) % Eos % (Auto) (0-4) % Baso % (Auto) (0-2) % Lymph # (Auto) (1.2-4.9) X10*3/uL [place] # (Auto) (0.1-1.2) X10*3/uL Eos # (Auto) (0.0-0.4) X10*3/uL Baso # (Auto) (0.0-0.2) X10*3/uL Abs Immat Gran (auto) (0.00-0.03) X10*3/uL Absolute Neuts (auto) (2.0-8.3) x10*3/uL Absolute Nucleated RBC (0.0-0.012) X10*3/uL Nucleated RBC % (auto) (0.0-0.2) /100WBC Sodium (135-145) mmol/L Potassium (3.3-5.1) mmol/L Chloride (96-108) mmol/L Carbon Dioxide (22-29) mmol/L Anion Gap (12-20) BUN (9-16) mg/dL Creatinine (0.5-1.4) mg/dL Estim Creat Clear Calc Estimated GFR Random Glucose (60-115) mg/dL Calcium (8.4-10.2) mg/dL Urine Color Urine Appearance Urine pH (5.0-8.0) Ur Specific [place] (1.005-1.025) Urine Protein (NEG-TRACE) MG/DL Urine Glucose (UA) (NEG) MG/DL Urine Ketones (NEG) MG/DL Urine Blood (NEG) Urine Nitrite (NEG) Ur Leukocyte Esterase (NEG) Urine Test (NEGATIVE) Salicylates (15-30) mg/dL Urine Opiates Screen (Not Detect) Urine Fentanyl Screen (Not Detect) Acetaminophen (<30) mcg/mL Ur Barbiturates Screen (Not Detect) Ur Phencyclidine Scrn (Not Detect) Ur Amphetamines Screen (Not Detect) U Benzodiazepines Scrn (Not Detect) Urine Cocaine Screen (Not Detect) U Marijuana (THC) Screen (Not Detect) Ethyl Alcohol < 10 mg/dL COVID-19 (ALBA) (Negative) COVID-19 Clin Com Discharge Plan Discharge Clinical Impression: Depression Qualifiers: Depression Type: unspecified Qualified Code(s): F32.A - Depression, unspecified Patient Disposition: Still a Patient Prescriptions: No Action chlorpromazine 100 mg Tablet 100 mg PO BEDTIME 0RF prazosin 1 mg Capsule 1 mg PO BEDTIME 0RF fluoxetine [Prozac] 10 mg Tablet 10 mg PO TID 0RF propranolol 10 mg Tablet 10 mg PO TID PRN (Reason: Anxiety) 0RF buspirone 30 mg Tablet 30 mg PO BID 0RF gabapentin 300 mg Capsule 600 mg PO BID 0RF divalproex [Depakote ER] 250 mg Tablet Extended Release 24 Hr 750 mg PO BEDTIME 0RF mirtazapine 7.5 mg Tablet 7.5 mg PO BEDTIME 0RF buprenorphine-naloxone 8-2 mg film 3 film sublingual DAILY 0RF
[2022-04-27 08:50] VITALS: BP 103/42; RESP 15; O2SAT 96
--- NOTE | 2022-04-27 09:56 | PHA.MEDREC ---
Pharmacy Consult ? Medication Reconciliation Pharmacy has completed the medication reconciliation. RICCARDO Narvaez called stating patient is reporting she has not been taking medication and nothing was coming up on claim history so he asked if we could call the pharmacy. Called [facility] on [address] [phone] who confirmed a bunch of medications. I had RICCARDO Rosas confirm with patient again if she has been taking any medications. Patient reports it has been weeks. I spoke with ANNELIESE Bass she wanted me to put medication in home list for her to review on what should be continued. Betty Seay, PharmD
[2022-04-27 14:01] VITALS: BP 101/64; PULSE 82; RESP 15; TEMP 37.1; O2SAT 99
[2022-04-27] MEDS: Gabapentin 300 MG CAPSULE 600 MG PO ×2 (14:01→20:36)
[2022-04-27] MEDS: busPIRone HCl 10 MG TABLET 30 MG PO ×2 (14:01→20:35)
[2022-04-27] MEDS: Buprenorphine/Naloxone 8/2 mg FILM 1 FILM SUBLINGUAL (14:07)
[2022-04-27] MEDS: FLUoxetine HCl 10 MG CAPSULE PO ×2 (15:14→20:36)
[2022-04-27 20:15] VITALS: BP 105/62; PULSE 71; RESP 16; TEMP 36.6
[2022-04-27] MEDS: chlorproMAZINE HCl 100 MG TABLET PO (20:35)
[2022-04-27] MEDS: Divalproex Sodium ER 250 MG TAB.ER.24H 750 MG PO (20:35)
[2022-04-27] MEDS: Prazosin HCL 1 MG CAPSULE PO (20:36)
[2022-04-27] MEDS: Mirtazapine 7.5 MG TABLET PO (20:36)
--- NOTE | 2022-04-27 22:12 | PC.ADMIT ---
PT is a 31 year old [facility] female that arrived on this unit at 20:15 via wheelchair from [facility]. PT admitted on a conditional voluntary basis. PT arrived to the ED after via ambulance after calling EMS reporting SI with a plan to intent to overdose on heroin, alcohol and cocaine. PT reported she attempted 3 times the day before but failed to complete suicide. PT has a chronic longstanding hx of polysubstance abuse. TOX + for cocaine and fentanyl, COVID NEG, PT is a current everyday drinker of approximately 1-2 pints of vodka daily as well as 8-12 beers. VS currently stable with no reports of withdrawal symptoms. PT has a history of requiring IPLOC, most recently on M5 in January 2022. All legals signed, pt oriented to unit and policies explained.
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
[2022-04-28 08:40] VITALS: BP 111/59; BP 119/63; PULSE 78; PULSE 97; RESP 16; TEMP 36.4; O2SAT 97
[2022-04-28] MEDS: Multivitamin TABLET 1 TAB PO (08:47)
[2022-04-28 08:48] LABS: Alanine Aminotransferase 12 U/L (0-31); Albumin Level 3.9 g/dL (3.5-5.0); Alkaline Phosphatase 78 U/L (39-117); Anion Gap 15 (12-20); Aspartate Amino Transferase 14 U/L (5-31); Bilirubin Direct 0.2 mg/dL (0.0-0.5); Bilirubin Total 0.3 mg/dL (0.0-1.0); Blood Urea Nitrogen 14 mg/dL (9-16); Calcium 9.3 mg/dL (8.4-10.2); Carbon Dioxide 23 mmol/L (22-29); Chloride 109 mmol/L (96-108); Cholesterol 145 mg/dL; Creatinine Clr Calc Pharmacy 70.2; Estimated Glomerular Filt Rate > 60; Glucose Fasting 138 mg/dL (60-99); HDL Cholesterol 66 mg/dL; LDL Cholesterol Calculated 64 mg/dl; Magnesium 2.2 mg/dL (1.6-2.6); Potassium 4.4 mmol/L (3.3-5.1); Sodium 143 mmol/L (135-145); Total Protein 6.4 g/dL (6.5-8.0); Triglycerides 75 mg/dL
[2022-04-28] MEDS: busPIRone HCl 10 MG TABLET 30 MG PO (08:48)
[2022-04-28] MEDS: Folic Acid 1 MG TABLET PO (08:49)
[2022-04-28] MEDS: Thiamine HCL 100 MG TABLET PO (08:49)
[2022-04-28] MEDS: FLUoxetine HCl 10 MG CAPSULE PO ×2 (08:50→15:48)
[2022-04-28] MEDS: Gabapentin 300 MG CAPSULE 600 MG PO (08:50)
[2022-04-28 09:07] LABS: Thyroid Stimulating Hormone 1.44 uIU/mL (0.32-4.0)
[2022-04-28] MEDS: LORazepam 1 MG TABLET 2 MG PO (09:18)
[2022-04-28] MEDS: chlorproMAZINE HCl 25 MG TABLET 75 MG PO ×2 (09:18→16:55)
[2022-04-28] MEDS: Acetaminophen 325 MG TABLET 650 MG PO ×2 (09:54→16:54)
[2022-04-28] MEDS: Buprenorphine/Naloxone 8/2 mg FILM 1 FILM SUBLINGUAL ×2 (11:31→15:48)
[2022-04-28 16:01] VITALS: BP 118/58; PULSE 87; RESP 16; TEMP 36.7; O2SAT 96
[2022-04-28] MEDS: Propranolol HCL 10 MG TABLET PO (16:54)
[2022-04-28 21:40] VITALS: BP 105/51; PULSE 72
[2022-04-29 08:38] VITALS: BP 115/69; PULSE 87; RESP 18; TEMP 37.3
[2022-04-29] MEDS: busPIRone HCl 10 MG TABLET 30 MG PO ×2 (09:21→20:54)
[2022-04-29] MEDS: Thiamine HCL 100 MG TABLET PO (09:21)
[2022-04-29] MEDS: Folic Acid 1 MG TABLET PO (09:21)
[2022-04-29] MEDS: Multivitamin TABLET 1 TAB PO (09:21)
[2022-04-29] MEDS: FLUoxetine HCl 10 MG CAPSULE PO ×3 (09:22→20:54)
[2022-04-29] MEDS: Gabapentin 300 MG CAPSULE 600 MG PO ×2 (09:22→20:53)
[2022-04-29] MEDS: chlorproMAZINE HCl 25 MG TABLET 75 MG PO ×3 (09:25→18:15)
--- NOTE | 2022-04-29 11:55 | P.PNPSI_ITS ---
Subjective Subjective Date of Service: 04/29/22 Reason For Visit: Depression Interim History: Patient seen and discussed. Patient reports she has not been taking Suboxone films since yesterday. It makes me gag. I hate it. Wants to transition to methadone. Patient reports feeling very depressed and anxious. She has SI if I go out there but I won't harm myself here. I want help Patient denies SI. Review of Systems Review of Systems Constitutional : No Fever, No Chills ENT/Mouth : No Ear Pain, No Nasal Congestion, No sore throat Eyes: No Eye Pain, No Swelling, No Redness Cardiovascular : No Chest Pain, No SOB Respiratory : No Cough, No Sputum, No Dyspnea Gastrointestinal : No Nausea, No Vomiting, No Diarrhea, No Hematochezia, No Melena Genitourinary : No Dysuria, No Urinary Frequency, No Hematuria Musculoskeletal : No Myalgias Skin : No Skin Lesions, No rash Neuro : No Weakness, No Numbness, No Paresthesias, No Dizziness, No Headache Psych : positive Anxiety, positive Depression, positive SI no HI Heme/Lymph: No Lymphadenopathy Endocrine : No Polyuria, No Polydipsia All other systems reviewed and are negative Mental Status Exam Mental Status Exam Narrative: Narrative: A&O. Pt is in casual attire, unkempt appearance, psychomotor restlessness, lying down in bed. Poor eye contact, inattentive. No Tics or Tremors. No abnormal involuntary movements. Labile tearful at times but overall cooperative. Non- pressured speech, spontaneous with regular rate and rhythm, normal volume and prosody. No prolonged speech latency or dysarthria. Mood is ?depressed,? affect is tearful, anxious. Denies SI/SIB/HI upon inquiry. Endorses perceptual disturbances. Denies delusional thought content. Thoughts are distracted but coherent. No known cognitive or memory impairment. Insight/ Judgment limited by substance use urges. Diagnostics Vital Signs (24Hr): Vital Signs - 24 hr 04/28/22 16:01 04/28/22 21:40 04/29/22 08:38 Temperature 98.0 F 99.1 F Pulse Rate 87 72 87 Respiratory Rate 16 18 Blood Pressure 118/58 L 105/51 L 115/69 Pulse Oximetry 96 BMI result Body Mass Index 23.9 Labs Results: 04/27/22 05:42 04/28/22 08:00 Labs: Laboratory Results - last 48 hr 04/28/22 08:00 Sodium 143 Potassium 4.4 Chloride 109 H Carbon Dioxide 23 Anion Gap 15 BUN 14 Creatinine 0.96 Estim Creat Clear Calc 70.2 Estimated GFR > 60 Fasting Glucose 138 H Calcium 9.3 D Magnesium 2.2 Total Bilirubin 0.3 Direct Bilirubin 0.2 AST 14 D ALT 12 Alkaline Phosphatase 78 Total Protein 6.4 L Albumin 3.9 Triglycerides 75 Cholesterol 145 LDL Cholesterol, Calc 64 HDL Cholesterol 66 D TSH 1.44 Medications Medications Current Medications Acetaminophen (Acetaminophen 325 Mg Tablet) 650 mg PO Q6H PRN PRN Reason: Headache/Pain Mild Scale (1-3) Last Admin: 04/28/22 16:54 Dose: 650 mg Documented by: Al Hydroxide/Mg Hydroxide (Magnesium Hydrox/Alum Hydrox 30 Ml Oral.Susp) 30 ml PO Q6H PRN PRN Reason: Heartburn/Nausea Buprenorphine/Naloxone (Buprenorphine/Naloxone 8/2 Mg Tab.Subl) 1 tab SUBLINGUAL TID [facility] Buspirone HCl (Buspirone Hcl 10 Mg Tablet) 30 mg PO BID [facility] Last Admin: 04/29/22 09:21 Dose: 30 mg Documented by: Chlorpromazine HCl (Chlorpromazine Hcl 100 Mg Tablet) 100 mg PO BEDTIME [facility] Last Admin: 04/28/22 21:58 Dose: Not Given Documented by: Chlorpromazine HCl (Chlorpromazine Hcl 25 Mg Tablet) 75 mg PO TID PRN PRN Reason: agitation Last Admin: 04/29/22 09:25 Dose: 75 mg Documented by: Divalproex Sodium (Divalproex Sodium Er 250 Mg Tab.Er.24h) 750 mg PO BEDTIME [facility] Last Admin: 04/28/22 21:58 Dose: Not Given Documented by: Fluoxetine HCl (Fluoxetine Hcl 10 Mg Capsule) 10 mg PO TID [facility] Last Admin: 04/29/22 09:22 Dose: 10 mg Documented by: Folic Acid (Folic Acid 1 Mg Tablet) 1 mg PO DAILY [facility] Stop: 05/01/22 08:59 Last Admin: 04/29/22 09:21 Dose: 1 mg Documented by: Gabapentin (Gabapentin 300 Mg Capsule) 600 mg PO BID [facility] Last Admin: 04/29/22 09:22 Dose: 600 mg Documented by: Hydroxyzine HCl (Hydroxyzine Hcl 25 Mg Tablet) 25 mg PO BEDTIME PRN PRN Reason: Anxiety Lorazepam (Lorazepam 1 Mg Tablet) 1 mg PO Q4H PRN PRN Reason: Breakthrough alcohol withdrawa Stop: 05/01/22 21:45 Magnesium Hydroxide (Milk Of Magnesia 30 Ml Oral.Susp) 30 ml PO DAILY PRN PRN Reason: Constipation Mirtazapine (Mirtazapine 7.5 Mg Tablet) 7.5 mg PO BEDTIME [facility] Last Admin: 04/28/22 21:59 Dose: Not Given Documented by: Multivitamins/Vitamin C (Multivitamin Tablet) 1 tab PO DAILY [facility] Stop: 05/01/22 08:59 Last Admin: 04/29/22 09:21 Dose: 1 tab Documented by: Pharmacy Consult (Consult Rx Perform Med Rec) 1 each MISCELLANE ONCE PRN PRN Reason: Consult order Prazosin HCl (Prazosin Hcl 1 Mg Capsule) 1 mg PO BEDTIME [facility]; Protocol Last Admin: 04/28/22 21:59 Dose: Not Given Documented by: Propranolol HCl (Propranolol Hcl 10 Mg Tablet) 10 mg PO TID PRN; Protocol PRN Reason: Anxiety Last Admin: 04/28/22 16:54 Dose: 10 mg Documented by: Thiamine HCl (Thiamine Hcl 100 Mg Tablet) 100 mg PO DAILY [facility] Stop: 05/01/22 08:59 Last Admin: 04/29/22 09:21 Dose: 100 mg Documented by: Trazodone HCl (Trazodone Hcl 50 Mg Tablet) 50 mg PO BEDTIME PRN PRN Reason: Insomnia Allergies Allergies Allergy/AdvReac Type Severity Reaction Status Date / Time No Known Allergies Allergy Verified 03/12/22 13:54 Assessment & Plan Assessment & Plan (1) Depression: Qualifiers: Depression Type: unspecified Qualified Code(s): F32.A - Depression, unspecified Status: Acute Code(s): F32.A - Depression, unspecified (2) Polysubstance abuse: Status: Acute Code(s): F19.10 - Other psychoactive substance abuse, uncomplicated (3) Opioid use disorder: Status: Acute Code(s): F11.90 - Opioid use, unspecified, uncomplicated (4) Cocaine use disorder: Status: Acute Code(s): F14.10 - Cocaine abuse, uncomplicated (5) Bipolar 2 disorder: Status: Acute Code(s): F31.81 - Bipolar II disorder (6) Alcohol use disorder, severe, dependence: Status: Resolved Code(s): F10.20 - Alcohol dependence, uncomplicated Plan Plan Bella is a 31 y.o. Female who carries a dx of Bipolar II DO, polysubstance abuse, and severe alcohol abuse. She has co-morbid diagnosis of hepatitis C. She presented to [facility] ED on 04/27/22 due to SI, depression, A/VH. Utox positive for opiates, fentanyl, an cocaine. EKG showed NSR, QTc 437. Li level <0.1. Ethyl alcohol level <10. Pt currently on MAT, suboxone.? Plan: CIWA Monitor response to medications. Restart med regimen from DC in March 2022 Monitor for safety in the milieu. Discharge on stabilization. Consider section 35. Patient seen. Chart reviewed. Discussed with team. Obtain collateral contact info as needed 04/29: CIWA negative. Wants to transition to Methadone. Will consult addiction medicine. Agrees to try tabs in the interim. I spent minutes with the patient and/or on the patient floor today, gr eater than?50% of which was spent counseling/coordinating care. Reason for contiued inpatient stay Substantial Risk for: harm to self, inability to function and rapid decompensation
[2022-04-29] MEDS: Buprenorphine/Naloxone 8/2 mg TAB.SUBL 1 TAB SUBLINGUAL ×2 (13:14→20:54)
--- NOTE | 2022-04-29 15:41 | MHC.RECOVSUP ---
Recovery Support note: This pattern chart writer met with patient to discuss medications for opioid use disorder after patient reported that she could not stand the taste of the Suboxone films. Patient was sleeping in 512-1 when this pattern chart writer went in the room however she awoke when her name was spoken. Patient reports she does not feel Suboxone has been helpful to her and her recovery and that she would like to try methadone. Patient reports she continued to use 3 bundles a day while connected with the Suboxone clinic. Education provided regarding methadone clinics and the transition from Suboxone to methadone. Patient was under the impression that she could start on a high dose of methadone due to her pattern of substance use however this pattern chart writer explained that she would need to titrate up to a higher dose if appropriate. Patient acknowledged. Plan for Recovery Support Team to follow up with patient tomorrow.
[2022-04-29] MEDS: Divalproex Sodium ER 250 MG TAB.ER.24H 750 MG PO (20:53)
[2022-04-29] MEDS: Prazosin HCL 1 MG CAPSULE PO (20:54)
[2022-04-29] MEDS: chlorproMAZINE HCl 100 MG TABLET PO (20:54)
[2022-04-29] MEDS: Mirtazapine 7.5 MG TABLET PO (20:54)
[2022-04-29 20:55] VITALS: BP 102/62; PULSE 104; TEMP 36.2; O2SAT 98
[2022-04-30 06:25] VITALS: BP 103/55; PULSE 77; RESP 16; TEMP 36.4; O2SAT 99
[2022-04-30] MEDS: chlorproMAZINE HCl 25 MG TABLET 75 MG PO (08:44)
[2022-04-30] MEDS: busPIRone HCl 10 MG TABLET 30 MG PO ×2 (08:45→21:19)
[2022-04-30] MEDS: Gabapentin 300 MG CAPSULE 600 MG PO ×2 (08:45→21:22)
[2022-04-30] MEDS: Folic Acid 1 MG TABLET PO (08:46)
[2022-04-30] MEDS: Buprenorphine/Naloxone 8/2 mg TAB.SUBL 1 TAB SUBLINGUAL ×3 (08:46→21:22)
[2022-04-30] MEDS: Thiamine HCL 100 MG TABLET PO (08:46)
[2022-04-30] MEDS: FLUoxetine HCl 10 MG CAPSULE PO ×2 (08:46→15:17)
[2022-04-30] MEDS: Multivitamin TABLET 1 TAB PO (08:46)
[2022-04-30 09:00] LABS: Folate 16.3 ng/mL (> or = 4.0); Vitamin B12 307 pg/mL (200-900)
--- NOTE | 2022-04-30 10:45 | P.PNPSI_ITS ---
Subjective Subjective Date of Service: 04/30/22 Reason For Visit: Depression Interim History: Patient discharged from on 03/04/2022. She was admitted to [facility] on 03/18 to 03/25 for depression and overdose Patient reports that she is currently depressed deeply regrets not going to a rogram and discharging home. She says that her boyfriend is unable to stay sober and he soon started drinking alcohol and bring cocaine into the house. She left and then stopped her medications. Patient said that she is been using since then and recently overdosed needing to be Narcan to 3 times. She said after that she started thinking about her daughter and that if she is she will continue to miss more of her birthday so she got herself to the ED. ?Patient is grateful she is alive but still struggles with suicidal ideation and says i'm sick. Patient wants to continue on same medications she was on last time and desperately wants help get into a substance abuse program. She con tinues to have intermittent SI. Patient endorses alcohol withdrawal symptoms and says she is getting sweaty. Portable Power Tool Repairer put patient on Ativan taper Mental Status Exam Mental Status Exam Narrative: Pt is alert and oriented; behavior is cooperative, friendly, intermittently tearful; patient is not in distress; dressed in casual attire with unkempt hair but adequate hygiene; mood is described as bad and affect congruent, tearful; eye contact appropriate; Speech is normal rate, volume and prosody and not pressured; psychomotor retardation present; thought process is organized and goal directed; Thought content is on tx; struggling with hopelessness, SI; otherwise pertinent to relevant topics and without any delusional content, paranoid ideations or grandiosity; denies HI. There is no evidence of perceptual disturbance. Patients insight and judgment are impaired. Diagnostics Vital Signs (24Hr): Vital Signs - 24 hr 04/29/22 20:55 04/30/22 06:25 Temperature 97.2 F 97.5 F Pulse Rate 104 H 77 Respiratory Rate 16 Blood Pressure 102/62 103/55 L Pulse Oximetry 98 99 BMI result Body Mass Index 23.9 Labs Results: 04/27/22 05:42 04/28/22 08:00 Labs: Laboratory Results - last 48 hr 04/28/22 08:00 Vitamin B12 307 Folate 16.3 Medications Medications Current Medications Acetaminophen (Acetaminophen 325 Mg Tablet) 650 mg PO Q6H PRN PRN Reason: Headache/Pain Mild Scale (1-3) Last Admin: 04/28/22 16:54 Dose: 650 mg Documented by: Al Hydroxide/Mg Hydroxide (Magnesium Hydrox/Alum Hydrox 30 Ml Oral.Susp) 30 ml PO Q6H PRN PRN Reason: Heartburn/Nausea Buprenorphine/Naloxone (Buprenorphine/Naloxone 8/2 Mg Tab.Subl) 1 tab SUBLINGUA L TID [facility] Last Admin: 04/30/22 08:46 Dose: 1 tab Documented by: Buspirone HCl (Buspirone Hcl 10 Mg Tablet) 30 mg PO BID [facility] Last Admin: 04/30/22 08:45 Dose: 30 mg Documented by: Chlorpromazine HCl (Chlorpromazine Hcl 100 Mg Tablet) 100 mg PO BEDTIME [facility] Last Admin: 04/29/22 20:54 Dose: 100 mg Documented by: Chlorpromazine HCl (Chlorpromazine Hcl 25 Mg Tablet) 75 mg PO TID PRN PRN Reason: agitation Last Admin: 04/30/22 08:44 Dose: 75 mg Documented by: Divalproex Sodium (Divalproex Sodium Er 250 Mg Tab.Er.24h) 750 mg PO BEDTIME [facility] Last Admin: 04/29/22 20:53 Dose: 750 mg Documented by: Fluoxetine HCl (Fluoxetine Hcl 10 Mg Capsule) 10 mg PO TID [facility] Last Admin: 04/30/22 08:46 Dose: 10 mg Documented by: Folic Acid (Folic Acid 1 Mg Tablet) 1 mg PO DAILY [facility] Stop: 05/01/22 08:59 Last Admin: 04/30/22 08:46 Dose: 1 mg Documented by: Gabapentin (Gabapentin 300 Mg Capsule) 600 mg PO BID [facility] Last Admin: 04/30/22 08:45 Dose: 600 mg Documented by: Hydroxyzine HCl (Hydroxyzine Hcl 25 Mg Tablet) 25 mg PO BEDTIME PRN PRN Reason: Anxiety Lorazepam (Lorazepam 1 Mg Tablet) 1 mg PO Q4H PRN PRN Reason: Breakthrough alcohol withdrawa Stop: 05/01/22 21:45 Magnesium Hydroxide (Milk Of Magnesia 30 Ml Oral.Susp) 30 ml PO DAILY PRN PRN Reason: Constipation Mirtazapine (Mirtazapine 7.5 Mg Tablet) 7.5 mg PO BEDTIME [facility] Last Admin: 04/29/22 20:54 Dose: 7.5 mg Documented by: Multivitamins/Vitamin C (Multivitamin Tablet) 1 tab PO DAILY [facility] Stop: 05/01/22 08:59 Last Admin: 04/30/22 08:46 Dose: 1 tab Documented by: Pharmacy Consult (Consult Rx Perform Med Rec) 1 each MISCELLANE ONCE PRN PRN Reason: Consult order Prazosin HCl (Prazosin Hcl 1 Mg Capsule) 1 mg PO BEDTIME [facility]; Protocol Last Admin: 04/29/22 20:54 Dose: 1 mg Documented by: Propranolol HCl (Propranolol Hcl 10 Mg Tablet) 10 mg PO TID PRN; Protocol PRN Reason: Anxiety Last Admin: 04/28/22 16:54 Dose: 10 mg Documented by: Thiamine HCl (Thiamine Hcl 100 Mg Tablet) 100 mg PO DAILY [facility] Stop: 05/01/22 08:59 Last Admin: 04/30/22 08:46 Dose: 100 mg Documented by: Trazodone HCl (Trazodone Hcl 50 Mg Tablet) 50 mg PO BEDTIME PRN PRN Reason: Insomnia Allergies Allergies Allergy/AdvReac Type Severity Reaction Status Date / Time No Known Allergies Allergy Verified 03/12/22 13:54 Assessment & Plan Assessment & Plan (1) Polysubstance abuse: Status: Acute Code(s): F19.10 - Other psychoactive substance abuse, uncomplicated (2) Opioid use disorder: Status: Acute Code(s): F11.90 - Opioid use, unspecified, uncomplicated (3) Cocaine use disorder: Status: Acute Code(s): F14.10 - Cocaine abuse, uncomplicated (4) Bipolar 2 disorder: Status: Acute Code(s): F31.81 - Bipolar II disorder (5) Alcohol use disorder, severe, dependence: Status: Resolved Code(s): F10.20 - Alcohol dependence, uncomplicated (6) Alcohol dependence: Status: Acute Code(s): F10.20 - Alcohol dependence, uncomplicated Plan Plan Bella is a 31 y.o. Female who carries a dx of Bipolar II DO, polysubstance abuse, and severe alcohol abuse. She has co-morbid diagnosis of hepatitis C. She presented to [facility] on 04/27/22 due to SI, depression, A/VH. Utox positive for opiates, fentanyl, an cocaine. EKG showed NSR, QTc 437. Li level <0.1. Ethyl alcohol level <10. Pt currently on MAT, suboxone.? 04/30 pt depressed, struggling with hopelessness and SI; wants to stay on suboxone as tablets are tolerable. Pt says she will if she does not get into a program and is worried she'll either OD accidently or on purpose. -will start ativan taper for withdrawal Plan: CIWA Monitor response to medications. Restart med regimen from DC in March 2022 Monitor for safety in the milieu. Discharge on stabilization. Consider section 35. Patient seen. Chart reviewed. Discussed with team. Obtain collateral contact info as needed I spent minutes with the patient and/or on the patient floor today, greater than?50% of which was spent counseling/coordinating care. Patient educated on: diagnosis, medication risk/benefits, substance abuse and therapeutic strategies Informed Consent: understands Reason for contiued inpatient stay Substantial Risk for: harm to self and rapid decompensation
[2022-04-30] MEDS: Magnesium Hydrox/Alum Hydrox 30 ML ORAL.SUSP PO (11:44)
[2022-04-30] MEDS: LORazepam 1 MG TABLET PO ×3 (11:44→21:22)
[2022-04-30] MEDS: Nicotine 21 MG PATCH.TD24 TRANSDERMA (12:50)
[2022-04-30] MEDS: Simethicone 80 MG TAB.CHEW PO ×2 (15:16→19:51)
[2022-04-30 18:00] VITALS: BP 125/65; PULSE 104; RESP 16; TEMP 36.4; O2SAT 98
[2022-04-30] MEDS: chlorproMAZINE HCl 100 MG TABLET PO (19:40)
--- NOTE | 2022-04-30 20:05 | HO.ADDICTPRO ---
Subjective Subjective Date of Service: 04/30/22 Reason For Visit: Depression Interim History: Consult requested as patient had expressed desire to transition from buprenorphine to methadone. Patient seen with [facility] on M5. Patient known to this com writer via previous admissions. She reported that she wanted to switch from suboxone to methadone due to dislike for taste of suboxone films. She was recently switched to pill formulation and is finding it more tolerable. Reviewed options for OUD treatment. Patient reporting significant challenges with taking medication with regularity--often misses doses. Reviewed benefits of taking medication with regularity. Discussed Sublocade as an option--patient declined. Reviewed methadone as an option, patient declined due to daily clinic visit commitment. Discussed goals with MOUD--decrease in use vs abstinence. Patient reporting she needs to cut down and stop or this is going to kill me . Lacks recovery supports in the community. At time of interview, patient was not experiencing any withdrawal sx. Review of Systems Constitutional: Reports as per HPI and Reports no additional constitutional complaints Mental Status Exam Mental Status Exam Patient Appearance: Well Grooomed and Appropriate Level of Consciousness: Awake Patient Behavior: Appropriate and Talkative Thought Process: Linear Judgement: Fair Diagnostics Vital Signs (24Hr): Vital Signs - 24 hr 04/29/22 20:55 04/30/22 06:25 04/30/22 18:00 Temperature 97.2 F 97.5 F 97.6 F Pulse Rate 104 H 77 104 H Respiratory Rate 16 16 Blood Pressure 102/62 103/55 L 125/65 Pulse Oximetry 98 99 98 BMI result Body Mass Index 23.9 Labs Results: 04/27/22 05:42 04/28/22 08:00 Labs: Laboratory Results - last 48 hr 04/28/22 08:00 Vitamin B12 307 Folate 16.3 Medications Medications Current Medications Acetaminophen (Acetaminophen 325 Mg Tablet) 650 mg PO Q6H PRN PRN Reason: Headache/Pain Mild Scale (1-3) Last Admin: 04/28/22 16:54 Dose: 650 mg Documented by: Al Hydroxide/Mg Hydroxide (Magnesium Hydrox/Alum Hydrox 30 Ml Oral.Susp) 30 ml PO Q6H PRN PRN Reason: Heartburn/Nausea Last Admin: 04/30/22 11:44 Dose: 30 ml Documented by: Buprenorphine/Naloxone (Buprenorphine/Naloxone 8/2 Mg Tab.Subl) 1 tab SUBLINGUAL TID [facility] Last Admin: 04/30/22 15:16 Dose: 1 tab Documented by: Buspirone HCl (Buspirone Hcl 10 Mg Tablet) 30 mg PO BID [facility] Last Admin: 04/30/22 08:45 Dose: 30 mg Documented by: Chlorpromazine HCl (Chlorpromazine Hcl 100 Mg Tablet) 100 mg PO BEDTIME [facility] Last Admin: 04/30/22 19:40 Dose: 100 mg Documented by: Chlorpromazine HCl (Chlorpromazine Hcl 25 Mg Tablet) 75 mg PO TID PRN PRN Reason: agitation Last Admin: 04/30/22 08:44 Dose: 75 mg Documented by: Clonidine HCl (Clonidine Hcl 0.1 Mg Tablet) 0.1 mg PO TID PRN; Protocol PRN Reason: anxiety Divalproex Sodium (Divalproex Sodium Er 250 Mg Tab.Er.24h) 750 mg PO BEDTIME [facility] Last Admin: 04/29/22 20:53 Dose: 750 mg Documented by: Famotidine (Famotidine 20 Mg Tablet) 20 mg PO BID [facility] Fluoxetine HCl (Fluoxetine Hcl 20 Mg Capsule) 20 mg PO DAILY [facility] Folic Acid (Folic Acid 1 Mg Tablet) 1 mg PO DAILY [facility] Stop: 05/01/22 08:59 Last Admin: 04/30/22 08:46 Dose: 1 mg Documented by: Gabapentin (Gabapentin 300 Mg Capsule) 600 mg PO BID [facility] Last Admin: 04/30/22 08:45 Dose: 600 mg Documented by: Hydroxyzine HCl (Hydroxyzine Hcl 25 Mg Tablet) 25 mg PO BEDTIME PRN PRN Reason: Anxiety Lorazepam (Lorazepam 1 Mg Tablet) 1 mg PO Q4H PRN PRN Reason: Breakthrough alcohol withdrawa Stop: 05/01/22 21:45 Lorazepam (Lorazepam 1 Mg Tablet) 1 mg PO TID [facility] Stop: 05/01/22 23:50 Last Admin: 04/30/22 15:16 Dose: 1 mg Documented by: Lorazepam (Lorazepam 1 Mg Tablet) 1 mg PO BID [facility] Stop: 05/03/22 23:50 Magnesium Hydroxide (Milk Of Magnesia 30 Ml Oral.Susp) 30 ml PO DAILY PRN PRN Reason: Constipation Mirtazapine (Mirtazapine 7.5 Mg Tablet) 7.5 mg PO BEDTIME [facility] Last Admin: 04/29/22 20:54 Dose: 7.5 mg Documented by: Multivitamins/Vitamin C (Multivitamin Tablet) 1 tab PO DAILY [facility] Stop: 05/01/22 08:59 Last Admin: 04/30/22 08:46 Dose: 1 tab Documented by: Nicotine (Nicotine 21 Mg Patch.Td24) 21 mg TRANSDERMA DAILY [facility] Last Admin: 04/30/22 12:50 Dose: 21 mg Documented by: Pharmacy Consult (Consult Rx Perform Med Rec) 1 each MISCELLANE ONCE PRN PRN Reason: Consult order Prazosin HCl (Prazosin Hcl 1 Mg Capsule) 1 mg PO BEDTIME [facility]; Protocol Last Admin: 04/29/22 20:54 Dose: 1 mg Documented by: Simethicone (Simethicone 80 Mg Tab.Chew) 80 mg PO QIDWMHS PRN PRN Reason: flatulance Last Admin: 04/30/22 19:51 Dose: 80 mg Documented by: Thiamine HCl (Thiamine Hcl 100 Mg Tablet) 100 mg PO DAILY [facility] Stop: 05/01/22 08:59 Last Admin: 04/30/22 08:46 Dose: 100 mg Documented by: Trazodone HCl (Trazodone Hcl 50 Mg Tablet) 50 mg PO BEDTIME PRN PRN Reason: Insomnia Allergies Allergies Allergy/AdvReac Type Severity Reaction Status Date / Time No Known Allergies Allergy Verified 03/12/22 13:54 Assessment & Plan Assessment & Plan (1) Opioid use disorder: Status: Acute Code(s): F11.90 - Opioid use, unspecified, uncomplicated Assessment and Plan: continue suboxone as prescribed already connected to [facility] for outpatient treatment Plan Plan I spent ___20___ minutes with the patient and/or on the patient floor today, greater than?50% of which was spent counseling/coordinating care.
[2022-04-30] MEDS: Divalproex Sodium ER 250 MG TAB.ER.24H 750 MG PO (21:20)
[2022-04-30] MEDS: Famotidine 20 MG TABLET PO (21:21)
[2022-04-30] MEDS: Mirtazapine 7.5 MG TABLET PO (21:21)
[2022-04-30] MEDS: Prazosin HCL 1 MG CAPSULE PO (21:22)
[2022-05-01 06:00] VITALS: BP 118/76; PULSE 100; RESP 16; TEMP 36.6; O2SAT 99
[2022-05-01] MEDS: Buprenorphine/Naloxone 8/2 mg TAB.SUBL 1 TAB SUBLINGUAL ×3 (08:24→20:15)
[2022-05-01] MEDS: Nicotine 21 MG PATCH.TD24 TRANSDERMA (08:24)
[2022-05-01] MEDS: busPIRone HCl 10 MG TABLET 30 MG PO ×2 (08:24→20:16)
[2022-05-01] MEDS: FLUoxetine HCl 20 MG CAPSULE PO (08:24)
[2022-05-01] MEDS: chlorproMAZINE HCl 25 MG TABLET 75 MG PO ×3 (08:24→22:54)
[2022-05-01] MEDS: Famotidine 20 MG TABLET PO ×2 (08:25→20:16)
[2022-05-01] MEDS: Gabapentin 300 MG CAPSULE 600 MG PO ×2 (08:25→20:15)
[2022-05-01] MEDS: LORazepam 1 MG TABLET PO ×3 (08:25→20:16)
--- NOTE | 2022-05-01 10:40 | HO.PSYCHPN ---
Subjective Subjective Date of Service: 05/01/22 Reason For Visit: Depression Interim History: Patient depressed and having trouble sleeping. Feels hopelessness suicidal, worried that she will quickly relapse kill herself if discharged. Patient says she is having trouble sleeping and still has anxiety. Digital Advertising Analyst increased PRNs available to help with insomnia. Patient understands that she is currently detoxing from opioids, cocaine and alcohol and that it is normal for her to feel dysregulated. Mental Status Exam Mental Status Exam Narrative: Pt is alert and oriented; behavior is cooperative, friendly, but intermittently tearful; dressed in casual attire with unkempt hair but adequate hygiene; mood is described as depressed and affect congruent, tearful; eye contact appropriate; Speech is normal rate, volume and prosody and not pressured; psychomotor retardation present; thought process is organized and goal directed; Thought content is on tx; struggling with hopelessness, SI; otherwise pertinent to relevant topics and without any delusional content, paranoid ideations or grandiosity; denies HI. There is no evidence of perceptual disturbance. ?Patients insight and judgment are impaired. Diagnostics Vital Signs (24Hr): Vital Signs - 24 hr 04/30/22 18:00 05/01/22 06:00 Temperature 97.6 F 97.8 F Pulse Rate 104 H 100 Respiratory Rate 16 16 Blood Pressure 125/65 118/76 Pulse Oximetry 98 99 BMI result Body Mass Index 23.9 Labs Results: 04/27/22 05:42 04/28/22 08:00 Labs: Laboratory Results - last 48 hr 04/28/22 08:00 Vitamin B12 307 Folate 16.3 Medications Medications Current Medications Acetaminophen (Acetaminophen 325 Mg Tablet) 650 mg PO Q6H PRN PRN Reason: Headache/Pain Mild Scale (1-3) Last Admin: 04/28/22 16:54 Dose: 650 mg Documented by: Al Hydroxide/Mg Hydroxide (Magnesium Hydrox/Alum Hydrox 30 Ml Oral.Susp) 30 ml PO Q6H PRN PRN Reason: Heartburn/Nausea Last Admin: 04/30/22 11:44 Dose: 30 ml Documented by: Buprenorphine/Naloxone (Buprenorphine/Naloxone 8/2 Mg Tab.Subl) 1 tab SUBLINGUAL TID [facility] Last Admin: 05/01/22 08:24 Dose: 1 tab Documented by: Buspirone HCl (Buspirone Hcl 10 Mg Tablet) 30 mg PO BID [facility] Last Admin: 05/01/22 08:24 Dose: 30 mg Documented by: Chlorpromazine HCl (Chlorpromazine Hcl 100 Mg Tablet) 100 mg PO BEDTIME [facility] Last Admin: 04/30/22 19:40 Dose: 100 mg Documented by: Chlorpromazine HCl (Chlorpromazine Hcl 25 Mg Tablet) 75 mg PO TID PRN PRN Reason: agitation Last Admin: 05/01/22 08:24 Dose: 75 mg Documented by: Clonidine HCl (Clonidine Hcl 0.1 Mg Tablet) 0.1 mg PO TID PRN; Protocol PRN Reason: anxiety Divalproex Sodium (Divalproex Sodium Er 250 Mg Tab.Er.24h) 750 mg PO BEDTIME [facility] Last Admin: 04/30/22 21:20 Dose: 750 mg Documented by: Famotidine (Famotidine 20 Mg Tablet) 20 mg PO BID [facility] Last Admin: 05/01/22 08:25 Dose: 20 mg Documented by: Fluoxetine HCl (Fluoxetine Hcl 20 Mg Capsule) 20 mg PO DAILY [facility] Last Admin: 05/01/22 08:24 Dose: 20 mg Documented by: Gabapentin (Gabapentin 300 Mg Capsule) 600 mg PO BID [facility] Last Admin: 05/01/22 08:25 Dose: 600 mg Documented by: Hydroxyzine HCl (Hydroxyzine Hcl 25 Mg Tablet) 25 mg PO BEDTIME PRN PRN Reason: Anxiety Lorazepam (Lorazepam 1 Mg Tablet) 1 mg PO Q4H PRN PRN Reason: Breakthrough alcohol withdrawa Stop: 05/01/22 21:45 Lorazepam (Lorazepam 1 Mg Tablet) 1 mg PO TID [facility] Stop: 05/01/22 23:50 Last Admin: 05/01/22 08:25 Dose: 1 mg Documented by: Lorazepam (Lorazepam 1 Mg Tablet) 1 mg PO BID [facility] Stop: 05/03/22 23:50 Magnesium Hydroxide (Milk Of Magnesia 30 Ml Oral.Susp) 30 ml PO DAILY PRN PRN Reason: Constipation Mirtazapine (Mirtazapine 7.5 Mg Tablet) 7.5 mg PO BEDTIME [facility] Last Admin: 04/30/22 21:21 Dose: 7.5 mg Documented by: Nicotine (Nicotine 21 Mg Patch.Td24) 21 mg TRANSDERMA DAILY [facility] Last Admin: 05/01/22 08:24 Dose: 21 mg Documented by: Pharmacy Consult (Consult Rx Perform Med Rec) 1 each MISCELLANE ONCE PRN PRN Reason: Consult order Prazosin HCl (Prazosin Hcl 1 Mg Capsule) 1 mg PO BEDTIME [facility]; Protocol Last Admin: 04/30/22 21:22 Dose: 1 mg Documented by: Simethicone (Simethicone 80 Mg Tab.Chew) 80 mg PO QIDWMHS PRN PRN Reason: flatulance Last Admin: 04/30/22 19:51 Dose: 80 mg Documented by: Trazodone HCl (Trazodone Hcl 50 Mg Tablet) 50 mg PO BEDTIME PRN PRN Reason: Insomnia Allergies Allergies Allergy/AdvReac Type Severity Reaction Status Date / Time No Known Allergies Allergy Verified 03/12/22 13:54 Assessment & Plan Assessment & Plan (1) Polysubstance abuse: Status: Acute Code(s): F19.10 - Other psychoactive substance abuse, uncomplicated (2) Opioid use disorder: Status: Acute Code(s): F11.90 - Opioid use, unspecified, uncomplicated (3) Cocaine use disorder: Status: Acute Code(s): F14.10 - Cocaine abuse, uncomplicated (4) Bipolar 2 disorder: Status: Acute Code(s): F31.81 - Bipolar II disorder (5) Alcohol use disorder, severe, dependence: Status: Resolved Code(s): F10.20 - Alcohol dependence, uncomplicated (6) Alcohol dependence: Status: Acute Code(s): F10.20 - Alcohol dependence, uncomplicated Plan Plan Bella is a 31 y.o. Female who carries a dx of Bipolar II DO, polysubstance abuse, and severe alcohol abuse. She has co-morbid diagnosis of hepatitis C. She presented to [facility] ED on 04/27/22 due to SI, depression, A/VH. Utox positive for opiates, fentanyl, an cocaine. EKG showed NSR, QTc 437. Li level <0.1. Ethyl alcohol level <10. Pt currently on MAT, suboxone.? 04/30 pt depressed, struggling with hopelessness and SI; wants to stay on suboxone as tablets are tolerable. Pt says she will if she does not get into a program and is worried she'll either OD accidently or on purpose. -will start ativan taper for withdrawal 05/01 continues to be depressed, hopeless to and with SI. Continues to detox Plan: Ativan taper CIWA Schedule trazodone for insomnia Monitor response to medications. Monitor for safety in the milieu. Discharge on stabilization. Consider section 35. Patient seen. Chart reviewed. Discussed with team. Obtain collateral contact info as needed I spent minutes with the patient and/or on the patient floor today, greater than?50% of which was spent counseling/coordinating care. Patient educated on: diagnosis, medication risk/benefits, substance abuse and therapeutic strategies Informed Consent: understands Reason for contiued inpatient stay Substantial Risk for: harm to self and rapid decompensation
[2022-05-01] MEDS: cloNIDine HCL 0.1 MG TABLET PO (15:50)
[2022-05-01 15:52] VITALS: BP 112/66; PULSE 109
[2022-05-01] MEDS: Simethicone 80 MG TAB.CHEW PO (16:17)
[2022-05-01] MEDS: Mirtazapine 7.5 MG TABLET PO (20:15)
[2022-05-01] MEDS: Prazosin HCL 1 MG CAPSULE PO (20:15)
[2022-05-01] MEDS: Divalproex Sodium ER 250 MG TAB.ER.24H 750 MG PO (20:16)
[2022-05-01] MEDS: traZODone HCL 50 MG TABLET PO (20:16)
[2022-05-01] MEDS: chlorproMAZINE HCl 100 MG TABLET PO (20:35)
[2022-05-02 06:00] VITALS: BP 109/62; PULSE 87; TEMP 36.6; O2SAT 97
[2022-05-02 07:00] VITALS: BMI 27.3
[2022-05-02] MEDS: FLUoxetine HCl 10 MG CAPSULE 30 MG PO (08:05)
[2022-05-02] MEDS: chlorproMAZINE HCl 25 MG TABLET 75 MG PO ×2 (08:06→14:05)
[2022-05-02] MEDS: Gabapentin 300 MG CAPSULE 600 MG PO ×2 (08:06→21:14)
[2022-05-02] MEDS: LORazepam 1 MG TABLET PO ×2 (08:06→21:12)
[2022-05-02] MEDS: busPIRone HCl 10 MG TABLET 30 MG PO ×2 (08:06→21:11)
[2022-05-02] MEDS: Buprenorphine/Naloxone 8/2 mg TAB.SUBL 1 TAB SUBLINGUAL ×3 (08:06→21:16)
[2022-05-02] MEDS: Nicotine 21 MG PATCH.TD24 TRANSDERMA (08:06)
[2022-05-02] MEDS: Famotidine 20 MG TABLET PO ×2 (08:06→21:15)
--- NOTE | 2022-05-02 14:18 | PC.NURSE ---
Pt signed a 3-day notice on 05/02/22. 3-day up on Friday05/07/22.
[2022-05-02] MEDS: Simethicone 80 MG TAB.CHEW PO (14:33)
--- NOTE | 2022-05-02 15:30 | HO.PSYCHPN ---
Subjective Subjective Date of Service: 05/02/22 Reason For Visit: Depression Interim History: Patient feels that her mood is a little better and she is no longer feeling suicidal. She is still having trouble sleep and agrees to adding a p.r.n. trazodone. Patient changed her mind about attending residential program and is currently preferring to go to an IOP. She is not sure why she has changed her mind other than she also wants the freedom to look for a job while attending the program. She said she will live at her friend's house who is sober and stable. Concrete Pipe Making Machine Operator discussed with patient to her vulnerability to relapse and strongly recommended she attend a residential program initially; patient said she would still consider it though she is leaning much more towards an IOP. Mental Status Exam Mental Status Exam Narrative: Pt is alert and oriented; behavior is cooperative, friendly; dressed in casual attire with combed hair and adequate hygiene; mood is described as little better and affect congruent; eye contact appropriate; Speech is normal rate, volume and prosody and not pressured; psychomotor retardation present; thought process is organized and goal directed; Thought content is on tx; struggling with hopelessness but more hopeful; denies SI/HI; otherwise pertinent to relevant topics and without any delusional content, paranoid ideations or grandiosity; denies HI. There is no evidence of perceptual disturbance. ?Patients insight and judgment are impaired but improving Diagnostics Vital Signs (24Hr): Vital Signs - 24 hr 05/01/22 15:52 05/02/22 06:00 Temperature 97.8 F Pulse Rate 109 H 87 Blood Pressure 112/66 109/62 Pulse Oximetry 97 BMI result Body Mass Index 27.3 Labs Results: 04/27/22 05:42 04/28/22 08:00 Medications Medications Current Medications Acetaminophen (Acetaminophen 325 Mg Tablet) 650 mg PO Q6H PRN PRN Reason: Headache/Pain Mild Scale (1-3) Last Admin: 04/28/22 16:54 Dose: 650 mg Documented by: Al Hydroxide/Mg Hydroxide (Magnesium Hydrox/Alum Hydrox 30 Ml Oral.Susp) 30 ml PO Q6H PRN PRN Reason: Heartburn/Nausea Last Admin: 04/30/22 11:44 Dose: 30 ml Documented by: Buprenorphine/Naloxone (Buprenorphine/Naloxone 8/2 Mg Tab.Subl) 1 tab SUBLINGUAL TID [facility] Last Admin: 05/02/22 14:05 Dose: 1 tab Documented by: Buspirone HCl (Buspirone Hcl 10 Mg Tablet) 30 mg PO BID [facility] Last Admin: 05/02/22 08:06 Dose: 30 mg Documented by: Chlorpromazine HCl (Chlorpromazine Hcl 100 Mg Tablet) 100 mg PO BEDTIME [facility] Last Admin: 05/01/22 20:35 Dose: 100 mg Documented by: Chlorpromazine HCl (Chlorpromazine Hcl 25 Mg Tablet) 75 mg PO Q4H PRN PRN Reason: agitation/anxiety Last Admin: 05/02/22 14:05 Dose: 75 mg Documented by: Clonidine HCl (Clonidine Hcl 0.1 Mg Tablet) 0.1 mg PO Q4H PRN; Protocol PRN Reason: anxiety Last Admin: 05/01/22 15:50 Dose: 0.1 mg Documented by: Divalproex Sodium (Divalproex Sodium Er 250 Mg Tab.Er.24h) 750 mg PO BEDTIME [facility] Last Admin: 05/01/22 20:16 Dose: 750 mg Documented by: Famotidine (Famotidine 20 Mg Tablet) 20 mg PO BID [facility] Last Admin: 05/02/22 08:06 Dose: 20 mg Documented by: Fluoxetine HCl (Fluoxetine Hcl 10 Mg Capsule) 30 mg PO DAILY [facility] Last Admin: 05/02/22 08:05 Dose: 30 mg Documented by: Gabapentin (Gabapentin 300 Mg Capsule) 600 mg PO BID [facility] Last Admin: 05/02/22 08:06 Dose: 600 mg Documented by: Lorazepam (Lorazepam 1 Mg Tablet) 1 mg PO BID [facility] Stop: 05/03/22 23:50 Last Admin: 05/02/22 08:06 Dose: 1 mg Documented by: Lorazepam (Lorazepam 1 Mg Tablet) 1 mg PO BEDTIME [facility] Stop: 05/05/22 23:50 Magnesium Hydroxide (Milk Of Magnesia 30 Ml Oral.Susp) 30 ml PO DAILY PRN PRN Reason: Constipation Mirtazapine (Mirtazapine 7.5 Mg Tablet) 7.5 mg PO BEDTIME [facility] Last Admin: 05/01/22 20:15 Dose: 7.5 mg Documented by: Nicotine (Nicotine 21 Mg Patch.Td24) 21 mg TRANSDERMA DAILY [facility] Last Admin: 05/02/22 08:06 Dose: 21 mg Documented by: Prazosin HCl (Prazosin Hcl 1 Mg Capsule) 1 mg PO BEDTIME [facility]; Protocol Last Admin: 05/01/22 20:15 Dose: 1 mg Documented by: Simethicone (Simethicone 80 Mg Tab.Chew) 80 mg PO QIDWMHS PRN PRN Reason: flatulance Last Admin: 05/02/22 14:33 Dose: 80 mg Documented by: Trazodone HCl (Trazodone Hcl 50 Mg Tablet) 50 mg PO BEDTIME [facility] Last Admin: 05/01/22 20:16 Dose: 50 mg Documented by: Allergies Allergies Allergy/AdvReac Type Severity Reaction Status Date / Time No Known Allergies Allergy Verified 03/12/22 13:54 Assessment & Plan Assessment & Plan (1) Polysubstance abuse: Status: Acute Code(s): F19.10 - Other psychoactive substance abuse, uncomplicated (2) Opioid use disorder: Status: Acute Code(s): F11.90 - Opioid use, unspecified, uncomplicated (3) Cocaine use disorder: Status: Acute Code(s): F14.10 - Cocaine abuse, uncomplicated (4) Bipolar 2 disorder: Status: Acute Code(s): F31.81 - Bipolar II disorder (5) Alcohol use disorder, severe, dependence: Status: Resolved Code(s): F10.20 - Alcohol dependence, uncomplicated (6) Alcohol dependence: Status: Acute Code(s): F10.20 - Alcohol dependence, uncomplicated Plan Plan Bella is a 31 y.o. Female who carries a dx of Bipolar II DO, polysubstance abuse, and severe alcohol abuse. She has co-morbid diagnosis of hepatitis C. She presented to [facility] [place] on 04/27/22 due to SI, depression, A/VH. Utox positive for opiates, fentanyl, an cocaine. EKG showed NSR, QTc 437. Li level <0.1. Ethyl alcohol level <10. Pt currently on MAT, suboxone.? 04/30 pt depressed, struggling with hopelessness and SI; wants to stay on suboxone as tablets are tolerable. Pt says she will if she does not get into a program and is worried she'll either OD accidently or on purpose. -will start ativan taper for withdrawal 05/01 continues to be depressed, hopeless to and with SI. Continues to detox 6/ patient's mood has improved somewhat and she is no longer feeling suicidal. She is contemplating IOP although account underwriter continues to recommend patient attend a residential program initially. Plan: Ativan taper CIWA Schedule trazodone for insomnia Monitor response to medications. Monitor for safety in the milieu. Discharge on stabilization. Consider section 35. Patient seen. Chart reviewed. Discussed with team. Obtain collateral contact info as needed I spent minutes with the patient and/or on the patient floor today, greater than?50% of which was spent counseling/coordinating care. Patient educated on: medication risk/benefits, substance abuse and therapeutic strategies Informed Consent: understands Reason for contiued inpatient stay Substantial Risk for: rapid decompensation
[2022-05-02 17:35] VITALS: BP 109/56; PULSE 85; TEMP 37
[2022-05-02] MEDS: cloNIDine HCL 0.1 MG TABLET PO (17:39)
[2022-05-02] MEDS: Mirtazapine 7.5 MG TABLET PO (21:12)
[2022-05-02] MEDS: chlorproMAZINE HCl 100 MG TABLET PO (21:12)
[2022-05-02] MEDS: Prazosin HCL 1 MG CAPSULE PO (21:13)
[2022-05-02] MEDS: traZODone HCL 50 MG TABLET PO (21:14)
[2022-05-02] MEDS: Divalproex Sodium ER 250 MG TAB.ER.24H 750 MG PO (21:15)
[2022-05-03 06:00] VITALS: BP 108/58; PULSE 69; RESP 17; TEMP 36.3; O2SAT 99
[2022-05-03] MEDS: FLUoxetine HCl 10 MG CAPSULE 30 MG PO (08:14)
[2022-05-03] MEDS: busPIRone HCl 10 MG TABLET 30 MG PO ×2 (08:14→21:10)
[2022-05-03] MEDS: Buprenorphine/Naloxone 8/2 mg TAB.SUBL 1 TAB SUBLINGUAL ×3 (08:15→21:10)
[2022-05-03] MEDS: LORazepam 1 MG TABLET PO ×2 (08:15→21:13)
[2022-05-03] MEDS: Famotidine 20 MG TABLET PO ×2 (08:15→21:11)
[2022-05-03] MEDS: Gabapentin 300 MG CAPSULE 600 MG PO ×2 (08:15→21:11)
[2022-05-03] MEDS: Nicotine 21 MG PATCH.TD24 TRANSDERMA (08:16)
[2022-05-03 08:48] LABS: MANUAL DIFF FLAG NO
[2022-05-03 08:57] LABS: Basophils Percent Auto 0.5 % (0-2); Eosinophils Absolute Auto 0.2 X10*3/uL (0.0-0.4); Eosinophils Percent Auto 3.9 % (0-4); Hematocrit 37.4 % (37.0-47.0); Hemoglobin 12.1 g/dl (12.0-16.0); Imm Gran Abs Auto 0.01 X10*3/uL (0.00-0.03); Imm Gran Pct Auto 0.2 % (0.0-0.4); Lymphocytes Absolute Auto 2.7 X10*3/uL (1.2-4.9); Lymphocytes Percent Auto 46.8 % (20-40); Mean Corpuscular HGB Conc 32.4 g/dl (31.0-35.0); Mean Corpuscular Hemoglobin 30.6 pg (27.0-33.0); Mean Corpuscular Volume 94.4 fL (80.0-98.0); Mean Platelet Volume 10.5 fL (9.4-12.3); Monocytes Absolute Auto 0.4 X10*3/uL (0.1-1.2); Monocytes Percent Auto 6.9 % (2-11); Neutrophils Absolute Auto 2.4 x10*3/uL (2.0-8.3); Neutrophils Percent Auto 41.7 % (45-73); Platelet Count 177 X10*3/uL (160-400); Red Blood Count 3.96 X10*6/uL (4.20-5.50); Red Cell Distribution Width 13.4 % (11.0-16.0); White Blood Count 5.7 X10*3/uL (4.8-10.8)
[2022-05-03 08:59] LABS: Ammonia 42 umol/L (13-55)
[2022-05-03 09:14] LABS: Alanine Aminotransferase 40 U/L (0-31); Albumin Level 3.9 g/dL (3.5-5.0); Alkaline Phosphatase 76 U/L (39-117); Aspartate Amino Transferase 36 U/L (5-31); Bilirubin Direct < 0.2 mg/dL (0.0-0.5); Bilirubin Total 0.2 mg/dL (0.0-1.0); Total Protein 6.5 g/dL (6.5-8.0)
[2022-05-03 09:23] LABS: Valproate 39.1 mcg/mL (50.0-100.0)
--- NOTE | 2022-05-03 10:40 | P.PNPSI_ITS ---
Subjective Subjective Date of Service: 05/03/22 Reason For Visit: Depression Interim History: Patient reports that her mood is better and she denies SI. She feels that she will be ready to go next week to an IOP. Patient says that she was able to sleep through the night but still is very tired and understands that her body needs rest as the detox process resolves. Patient decided that she does not want to go to a residential program and did not attend the interview this morning. Although instructional writer has strongly recommended the residential program, patient says she feels comfortable staying at her sober friend's place and attending the IOP and working on her sobriety as an outpatient. Mental Status Exam Mental Status Exam Narrative: Pt is alert and oriented; behavior is cooperative, friendly; dressed in casual attire with combed hair and adequate hygiene; mood is described as little better and affect congruent; eye contact appropriate; Speech is normal rate, volume and prosody and not pressured; psychomotor retardation present; thought process is organized and goal directed; Thought content is on tx; denies SI/HI; otherwise pertinent to relevant topics and without any delusional content, paranoid ideations or grandiosity; denies HI. There is no evidence of perceptual disturbance. ?Patients insight and judgment is fair and adequate. Diagnostics Vital Signs (24Hr): Vital Signs - 24 hr 05/02/22 17:35 05/03/22 06:00 Temperature 98.6 F 97.4 F Pulse Rate 85 69 Respiratory Rate 17 Blood Pressure 109/56 L 108/58 L Pulse Oximetry 99 BMI result Body Mass Index 27.3 Labs Results: 05/03/22 08:43 04/28/22 08:00 Labs: Laboratory Results - last 48 hr 05/03/22 05/03/22 05/03/22 08:43 08:43 08:43 WBC 5.7 RBC 3.96 L Hgb 12.1 Hct 37.4 MCV 94.4 MCH 30.6 MCHC 32.4 RDW 13.4 Plt Count 177 MPV 10.5 Immature Gran % (Auto) 0.2 Neut % (Auto) 41.7 L Lymph % (Auto) 46.8 H [place] % (Auto) 6.9 Eos % (Auto) 3.9 Baso % (Auto) 0.5 Lymph # (Auto) 2.7 [place] # (Auto) 0.4 Eos # (Auto) 0.2 Baso # (Auto) 0.0 Abs Immat Gran (auto) 0.01 Absolute Neuts (auto) 2.4 Absolute Nucleated RBC 0.000 Nucleated RBC % (auto) 0.0 Total Bilirubin 0.2 Direct Bilirubin < 0.2 AST 36 H D ALT 40 H Alkaline Phosphatase 76 Ammonia 42 Total Protein 6.5 Albumin 3.9 Valproic Acid 39.1 L Medications Medications Current Medications Acetaminophen (Acetaminophen 325 Mg Tablet) 650 mg PO Q6H PRN PRN Reason: Headache/Pain Mild Scale (1-3) Last Admin: 04/28/22 16:54 Dose: 650 mg Documented by: Al Hydroxide/Mg Hydroxide (Magnesium Hydrox/Alum Hydrox 30 Ml Oral.Susp) 30 ml PO Q6H PRN PRN Reason: Heartburn/Nausea Last Admin: 04/30/22 11:44 Dose: 30 ml Documented by: Buprenorphine/Naloxone (Buprenorphine/Naloxone 8/2 Mg Tab.Subl) 1 tab SUBLINGUAL TID [facility] Last Admin: 05/03/22 08:15 Dose: 1 tab Documented by: Buspirone HCl (Buspirone Hcl 10 Mg Tablet) 30 mg PO BID [facility] Last Admin: 05/03/22 08:14 Dose: 30 mg Documented by: Chlorpromazine HCl (Chlorpromazine Hcl 100 Mg Tablet) 100 mg PO BEDTIME [facility] Last Admin: 05/02/22 21:12 Dose: 100 mg Documented by: Chlorpromazine HCl (Chlorpromazine Hcl 25 Mg Tablet) 75 mg PO Q4H PRN PRN Reason: agitation/anxiety Last Admin: 05/02/22 14:05 Dose: 75 mg Documented by: Clonidine HCl (Clonidine Hcl 0.1 Mg Tablet) 0.1 mg PO Q4H PRN; Protocol PRN Reason: anxiety Last Admin: 05/02/22 17:39 Dose: 0.1 mg Documented by: Divalproex Sodium (Divalproex Sodium Er 250 Mg Tab.Er.24h) 750 mg PO BEDTIME [facility] Last Admin: 05/02/22 21:15 Dose: 750 mg Documented by: Famotidine (Famotidine 20 Mg Tablet) 20 mg PO BID [facility] Last Admin: 05/03/22 08:15 Dose: 20 mg Documented by: Fluoxetine HCl (Fluoxetine Hcl 10 Mg Capsule) 30 mg PO DAILY [facility] Last Admin: 05/03/22 08:14 Dose: 30 mg Documented by: Gabapentin (Gabapentin 300 Mg Capsule) 600 mg PO BID [facility] Last Admin: 05/03/22 08:15 Dose: 600 mg Documented by: Lorazepam (Lorazepam 1 Mg Tablet) 1 mg PO BID [facility] Stop: 05/03/22 23:50 Last Admin: 05/03/22 08:15 Dose: 1 mg Documented by: Lorazepam (Lorazepam 1 Mg Tablet) 1 mg PO BEDTIME [facility] Stop: 05/05/22 23:50 Magnesium Hydroxide (Milk Of Magnesia 30 Ml Oral.Susp) 30 ml PO DAILY PRN PRN Reason: Constipation Mirtazapine (Mirtazapine 7.5 Mg Tablet) 7.5 mg PO BEDTIME [facility] Last Admin: 05/02/22 21:12 Dose: 7.5 mg Documented by: Nicotine (Nicotine 21 Mg Patch.Td24) 21 mg TRANSDERMA DAILY [facility] Last Admin: 05/03/22 08:16 Dose: 21 mg Documented by: Prazosin HCl (Prazosin Hcl 1 Mg Capsule) 1 mg PO BEDTIME [facility]; Protocol Last Admin: 05/02/22 21:13 Dose: 1 mg Documented by: Simethicone (Simethicone 80 Mg Tab.Chew) 80 mg PO QIDWMHS PRN PRN Reason: flatulance Last Admin: 05/02/22 14:33 Dose: 80 mg Documented by: Trazodone HCl (Trazodone Hcl 50 Mg Tablet) 50 mg PO BEDTIME [facility] Last Admin: 05/02/22 21:14 Dose: 50 mg Documented by: Trazodone HCl (Trazodone Hcl 50 Mg Tablet) 50 mg PO BEDTIME PRN PRN Reason: continued insomnia Allergies Allergies Allergy/AdvReac Type Severity Reaction Status Date / Time No Known Allergies Allergy Verified 03/12/22 13:54 Assessment & Plan Assessment & Plan (1) Polysubstance abuse: Status: Acute Code(s): F19.10 - Other psychoactive substance abuse, uncomplicated (2) Opioid use disorder: Status: Acute Code(s): F11.90 - Opioid use, unspecified, uncomplicated (3) Cocaine use disorder: Status: Acute Code(s): F14.10 - Cocaine abuse, uncomplicated (4) Bipolar 2 disorder: Status: Acute Code(s): F31.81 - Bipolar II disorder (5) Alcohol use disorder, severe, dependence: Status: Resolved Code(s): F10.20 - Alcohol dependence, uncomplicated (6) Alcohol dependence: Status: Acute Code(s): F10.20 - Alcohol dependence, uncomplicated Plan Plan Bella is a 31 y.o. Female who carries a dx of Bipolar II DO, polysubstance abuse, and severe alcohol abuse. She has co-morbid diagnosis of hepatitis C. She presented to [facility] ED on 04/27/22 due to SI, depression, A/VH. Utox positive for opiates, fentanyl, an cocaine. EKG showed NSR, QTc 437. Li level <0.1. Ethyl alcohol level <10. Pt currently on MAT, suboxone.? 04/30 pt depressed, struggling with hopelessness and SI; wants to stay on subox one as tablets are tolerable. Pt says she will if she does not get into a program and is worried she'll either OD accidently or on purpose. -will start ativan taper for withdrawal 05/01 continues to be depressed, hopeless to and with SI. Continues to detox 05/02 patient's mood has improved somewhat and she is no longer feeling suicidal. She is contemplating IOP although instructional writer continues to recommend patient attend a residential program initially. 05/03 patient reports mood has improved and she continues to be without any SI. She is pretty subtle on an IOP. She thinks she will be ready to discharge early next week. Plan: Ativan taper dc CIWA Schedule trazodone for insomnia Monitor response to medications. Monitor for safety in the milieu. Discharge on stabilization. Consider section 35. Patient seen. Chart reviewed. Discussed with team. Obtain collateral contact info as needed I spent minutes with the patient and/or on the patient floor today, gre ater than?50% of which was spent counseling/coordinating care. Patient educated on: substance abuse Informed Consent: understands Reason for contiued inpatient stay Substantial Risk for: rapid decompensation
[2022-05-03] MEDS: chlorproMAZINE HCl 25 MG TABLET 75 MG PO (16:29)
[2022-05-03 16:48] VITALS: BP 123/73; PULSE 121; RESP 20; TEMP 36.4; O2SAT 97
[2022-05-03] MEDS: Divalproex Sodium ER 250 MG TAB.ER.24H 750 MG PO (21:10)
[2022-05-03] MEDS: traZODone HCL 50 MG TABLET PO (21:11)
[2022-05-03] MEDS: Prazosin HCL 1 MG CAPSULE PO (21:11)
[2022-05-03] MEDS: Mirtazapine 7.5 MG TABLET PO (21:11)
[2022-05-03] MEDS: chlorproMAZINE HCl 100 MG TABLET PO (21:11)
[2022-05-04] MEDS: FLUoxetine HCl 10 MG CAPSULE 30 MG PO (07:56)
[2022-05-04] MEDS: Famotidine 20 MG TABLET PO ×2 (07:57→20:37)
[2022-05-04] MEDS: Gabapentin 300 MG CAPSULE 600 MG PO ×2 (07:57→20:37)
[2022-05-04] MEDS: busPIRone HCl 10 MG TABLET 30 MG PO ×2 (07:57→20:37)
[2022-05-04] MEDS: Buprenorphine/Naloxone 8/2 mg TAB.SUBL 1 TAB SUBLINGUAL (07:58)
[2022-05-04] MEDS: Nicotine 21 MG PATCH.TD24 TRANSDERMA (07:59)
[2022-05-04 08:06] VITALS: BP 128/60; PULSE 97; TEMP 36.6; O2SAT 99
[2022-05-04] MEDS: LORazepam 1 MG TABLET PO ×2 (08:08→20:37)
[2022-05-04] MEDS: Buprenorphine/Naloxone 8/2 mg FILM 1 FILM SUBLINGUAL ×2 (14:14→20:37)
[2022-05-04] MEDS: chlorproMAZINE HCl 25 MG TABLET 75 MG PO (15:50)
--- NOTE | 2022-05-04 16:43 | P.PNPSI_ITS ---
Subjective Subjective Date of Service: 05/04/22 Reason For Visit: Depression Interim History: Reports withdrawal is completed. Denies SI Does report that she finds Suboxone strips to be better tolerated than tabs as tabs seem to cause an increase in sedation-asks to return to strips. Also asks for trazodone increase as insomnia persists Medication Compliance: Yes Side effects from medications: Yes (sedation from Suboxone tabs) Attending Groups: Intermittent Review of Systems Acute medical concerns: No Medical Review of Systems: unchanged Mental Status Exam Mental Status Exam Patient Appearance: Appropriate Patient Orientation: Person, Place, Time and Situation Level of Consciousness: Alert Patient Behavior: Talkative, Cooperative and Good Eye Contact Mood Description: Anxious Affect Description: Anxious Patient Cognition Impaired: No Ability to Follow Directions: Good Speech Pattern: Spontaneous Speech Memory Description: Episodic Impaired Hallucinations: None Delusions: Not Present Thought Process: Intact Thought Content: positive for Intact, positive for [place] and positive for Circumstantial Depressive Symptoms: Insomnia and Difficulty Sleeping Judgement: Fair Diagnostics Vital Signs (24Hr): Vital Signs - 24 hr 05/03/22 16:48 05/04/22 08:06 Temperature 97.6 F 97.8 F Pulse Rate 121 H 97 Respiratory Rate 20 Blood Pressure 123/73 128/60 Pulse Oximetry 97 99 BMI result Body Mass Index 27.3 Labs Results: 05/03/22 08:43 04/28/22 08:00 Labs: Laboratory Results - last 48 hr 05/03/22 05/03/22 05/03/22 08:43 08:43 08:43 WBC 5.7 RBC 3.96 L Hgb 12.1 Hct 37.4 MCV 94.4 MCH 30.6 MCHC 32.4 RDW 13.4 Plt Count 177 MPV 10.5 Immature Gran % (Auto) 0.2 Neut % (Auto) 41.7 L Lymph % (Auto) 46.8 H [place] % (Auto) 6.9 Eos % (Auto) 3.9 Baso % (Auto) 0.5 Lymph # (Auto) 2.7 [place] # (Auto) 0.4 Eos # (Auto) 0.2 Baso # (Auto) 0.0 Abs Immat Gran (auto) 0.01 Absolute Neuts (auto) 2.4 Absolute Nucleated RBC 0.000 Nucleated RBC % (auto) 0.0 Total Bilirubin 0.2 Direct Bilirubin < 0.2 AST 36 H D ALT 40 H Alkaline Phosphatase 76 Ammonia 42 Total Protein 6.5 Albumin 3.9 Valproic Acid 39.1 L Medications Medications Current Medications Acetaminophen (Acetaminophen 325 Mg Tablet) 650 mg PO Q6H PRN PRN Reason: Headache/Pain Mild Scale (1-3) Last Admin: 04/28/22 16:54 Dose: 650 mg Documented by: Al Hydroxide/Mg Hydroxide (Magnesium Hydrox/Alum Hydrox 30 Ml Oral.Susp) 30 ml PO Q6H PRN PRN Reason: Heartburn/Nausea Last Admin: 04/30/22 11:44 Dose: 30 ml Documented by: Buprenorphine/Naloxone (Buprenorphine/Naloxone 8/2 Mg Film) 1 film SUBLINGUAL TID [facility] Last Admin: 05/04/22 14:14 Dose: 1 film Documented by: Buspirone HCl (Buspirone Hcl 10 Mg Tablet) 30 mg PO BID [facility] Last Admin: 05/04/22 07:57 Dose: 30 mg Documented by: Chlorpromazine HCl (Chlorpromazine Hcl 100 Mg Tablet) 100 mg PO BEDTIME [facility] Last Admin: 05/03/22 21:11 Dose: 100 mg Documented by: Chlorpromazine HCl (Chlorpromazine Hcl 25 Mg Tablet) 75 mg PO Q4H PRN PRN Reason: agitation/anxiety Last Admin: 05/04/22 15:50 Dose: 75 mg Documented by: Clonidine HCl (Clonidine Hcl 0.1 Mg Tablet) 0.1 mg PO Q4H PRN; Protocol PRN Reason: anxiety Last Admin: 05/02/22 17:39 Dose: 0.1 mg Documented by: Divalproex Sodium (Divalproex Sodium Er 250 Mg Tab.Er.24h) 750 mg PO BEDTIME [facility] Last Admin: 05/03/22 21:10 Dose: 750 mg Documented by: Famotidine (Famotidine 20 Mg Tablet) 20 mg PO BID [facility] Last Admin: 05/04/22 07:57 Dose: 20 mg Documented by: Fluoxetine HCl (Fluoxetine Hcl 10 Mg Capsule) 30 mg PO DAILY [facility] Last Admin: 05/04/22 07:56 Dose: 30 mg Documented by: Gabapentin (Gabapentin 300 Mg Capsule) 600 mg PO BID [facility] Last Admin: 05/04/22 07:57 Dose: 600 mg Documented by: Lorazepam (Lorazepam 1 Mg Tablet) 1 mg PO BEDTIME [facility] Stop: 05/05/22 23:50 Last Admin: 05/04/22 08:08 Dose: 1 mg Documented by: Magnesium Hydroxide (Milk Of Magnesia 30 Ml Oral.Susp) 30 ml PO DAILY PRN PRN Reason: Constipation Mirtazapine (Mirtazapine 7.5 Mg Tablet) 7.5 mg PO BEDTIME [facility] Last Admin: 05/03/22 21:11 Dose: 7.5 mg Documented by: Nicotine (Nicotine 21 Mg Patch.Td24) 21 mg TRANSDERMA DAILY [facility] Last Admin: 05/04/22 07:59 Dose: 21 mg Documented by: Prazosin HCl (Prazosin Hcl 1 Mg Capsule) 1 mg PO BEDTIME [facility]; Protocol Last Admin: 05/03/22 21:11 Dose: 1 mg Documented by: Simethicone (Simethicone 80 Mg Tab.Chew) 80 mg PO QIDWMHS PRN PRN Reason: flatulance Last Admin: 05/02/22 14:33 Dose: 80 mg Documented by: Trazodone HCl (Trazodone Hcl 100 Mg Tablet) 100 mg PO BEDTIME [facility] Allergies Allergies Allergy/AdvReac Type Severity Reaction Status Date / Time No Known Allergies Allergy Verified 03/12/22 13:54 Assessment & Plan Assessment & Plan (1) Polysubstance abuse: Status: Acute Code(s): F19.10 - Other psychoactive substance abuse, uncomplicated (2) Opioid use disorder: Status: Acute Code(s): F11.90 - Opioid use, unspecified, uncomplicated (3) Cocaine use disorder: Status: Acute Code(s): F14.10 - Cocaine abuse, uncomplicated (4) Bipolar 2 disorder: Status: Acute Code(s): F31.81 - Bipolar II disorder (5) Alcohol use disorder, severe, dependence: Status: Resolved Code(s): F10.20 - Alcohol dependence, uncomplicated (6) Alcohol dependence: Status: Acute Code(s): F10.20 - Alcohol dependence, uncomplicated Plan Plan Bella is a 31 y.o. Female who carries a dx of Bipolar II DO, polysubstance abuse, and severe alcohol abuse. She has co-morbid diagnosis of hepatitis C. She presented to [facility] ED on 04/27/22 due to SI, depression, A/VH. Utox positive for opiates, fentanyl, an cocaine. EKG showed NSR, QTc 437. Li level <0.1. Ethyl alcohol level <10. Pt currently on MAT, suboxone.? 04/30 pt depressed, struggling with hopelessness and SI; wants to stay on suboxone as tablets are tolerable. Pt says she will if she does not get into a program and is worried she'll either OD accidently or on purpose. -will start ativan taper for withdrawal 05/01 continues to be depressed, hopeless to and with SI. Continues to detox 05/02 patient's mood has improved somewhat and she is no longer feeling suicidal. She is contemplating IOP although contract writer continues to recommend patient attend a residential program initially. 05/03 patient reports mood has improved and she continues to be without any SI. She is pretty subtle on an IOP. She thinks she will be ready to discharge early next week. 05/04/22- Coverage- Increase Trazodone to 100 mg HS Change Suboxone tabs to strips Plan: Ativan taper dc CIWA Schedule trazodone for insomnia Monitor response to medications. Monitor for safety in the milieu. Discharge on stabilization. Consider section 35. Patient seen. Chart reviewed. Discussed with team. Obtain collateral contact info as needed I spent minutes with the patient and/or on the patient floor today, greater than?50% of which was spent counseling/coordinating care. Patient educated on: medication risk/benefits and therapeutic strategies Informed Consent: understands and further education needed Reason for contiued inpatient stay Substantial Risk for: inability to function and rapid decompensation
[2022-05-04 18:00] VITALS: BP 113/60; PULSE 100; RESP 18; TEMP 36.6; O2SAT 98
[2022-05-04 20:35] VITALS: BP 104/65; PULSE 111
[2022-05-04] MEDS: Prazosin HCL 1 MG CAPSULE PO (20:37)
[2022-05-04] MEDS: Mirtazapine 7.5 MG TABLET PO (20:37)
[2022-05-04] MEDS: chlorproMAZINE HCl 100 MG TABLET PO (20:37)
[2022-05-04] MEDS: Divalproex Sodium ER 250 MG TAB.ER.24H 750 MG PO (20:37)
[2022-05-04] MEDS: traZODone HCL 100 MG TABLET PO (20:38)
[2022-05-05] MEDS: Nicotine 21 MG PATCH.TD24 TRANSDERMA (08:08)
[2022-05-05] MEDS: Buprenorphine/Naloxone 8/2 mg FILM 1 FILM SUBLINGUAL ×2 (08:08→14:18)
[2022-05-05] MEDS: busPIRone HCl 10 MG TABLET 30 MG PO ×2 (08:09→20:36)
[2022-05-05] MEDS: Gabapentin 300 MG CAPSULE 600 MG PO ×2 (08:09→20:36)
[2022-05-05] MEDS: Famotidine 20 MG TABLET PO ×2 (08:09→20:38)
[2022-05-05] MEDS: FLUoxetine HCl 10 MG CAPSULE 30 MG PO (08:09)
[2022-05-05] MEDS: cloNIDine HCL 0.1 MG TABLET PO (09:43)
--- NOTE | 2022-05-05 10:46 | P.PNPSI_ITS ---
Subjective Subjective Date of Service: 05/05/22 Reason For Visit: Depression Interim History: Slept late. Appears fatigued. No reported issues or concerns. Increasingly visable in the milieu this afternoon with peers. Appears short-tempered at times with good controls in place. Medication Compliance: Yes Side effects from medications: No Attending Groups: Intermittent Review of Systems Acute medical concerns: No Mental Status Exam Mental Status Exam Patient Appearance: Appropriate Patient Orientation: Person, Place, Time and Situation Level of Consciousness: Alert Patient Behavior: Talkative, Cooperative and Good Eye Contact Mood Description: Anxious Affect Description: Anxious Patient Cognition Impaired: No Ability to Follow Directions: Good Speech Pattern: Spontaneous Speech Memory Description: Episodic Impaired Hallucinations: None Delusions: Not Present Thought Process: Intact Thought Content: positive for Intact, positive for [place] and positive for Circumstantial Depressive Symptoms: Insomnia and Difficulty Sleeping Judgement: Fair Diagnostics Vital Signs (24Hr): Vital Signs - 24 hr 05/04/22 18:00 05/04/22 20:35 Temperature 97.9 F Pulse Rate 100 111 H Respiratory Rate 18 Blood Pressure 113/60 104/65 Pulse Oximetry 98 BMI result Body Mass Index 27.3 Labs Results: 05/03/22 08:43 04/28/22 08:00 Medications Medications Current Medications Acetaminophen (Acetaminophen 325 Mg Tablet) 650 mg PO Q6H PRN PRN Reason: Headache/Pain Mild Scale (1-3) Last Admin: 04/28/22 16:54 Dose: 650 mg Documented by: Al Hydroxide/Mg Hydroxide (Magnesium Hydrox/Alum Hydrox 30 Ml Oral.Susp) 30 ml PO Q6H PRN PRN Reason: Heartburn/Nausea Last Admin: 04/30/22 11:44 Dose: 30 ml Documented by: Buprenorphine/Naloxone (Buprenorphine/Naloxone 8/2 Mg Film) 1 film SUBLINGUAL TID [facility] Last Admin: 05/05/22 08:08 Dose: 1 film Documented by: Buspirone HCl (Buspirone Hcl 10 Mg Tablet) 30 mg PO BID [facility] Last Admin: 05/05/22 08:09 Dose: 30 mg Documented by: Chlorpromazine HCl (Chlorpromazine Hcl 100 Mg Tablet) 100 mg PO BEDTIME [facility] Last Admin: 05/04/22 20:37 Dose: 100 mg Documented by: Chlorpromazine HCl (Chlorpromazine Hcl 25 Mg Tablet) 75 mg PO Q4H PRN PRN Reason: agitation/anxiety Last Admin: 05/04/22 15:50 Dose: 75 mg Documented by: Clonidine HCl (Clonidine Hcl 0.1 Mg Tablet) 0.1 mg PO Q4H PRN; Protocol PRN Reason: anxiety Last Admin: 05/05/22 09:43 Dose: 0.1 mg Documented by: Divalproex Sodium (Divalproex Sodium Er 250 Mg Tab.Er.24h) 750 mg PO BEDTIME [facility] Last Admin: 05/04/22 20:37 Dose: 750 mg Documented by: Famotidine (Famotidine 20 Mg Tablet) 20 mg PO BID [facility] Last Admin: 05/05/22 08:09 Dose: 20 mg Documented by: Fluoxetine HCl (Fluoxetine Hcl 10 Mg Capsule) 30 mg PO DAILY [facility] Last Admin: 05/05/22 08:09 Dose: 30 mg Documented by: Gabapentin (Gabapentin 300 Mg Capsule) 600 mg PO BID [facility] Last Admin: 05/05/22 08:09 Dose: 600 mg Documented by: Lorazepam (Lorazepam 1 Mg Tablet) 1 mg PO BEDTIME [facility] Stop: 05/05/22 23:50 Last Admin: 05/04/22 20:37 Dose: 1 mg Documented by: Magnesium Hydroxide (Milk Of Magnesia 30 Ml Oral.Susp) 30 ml PO DAILY PRN PRN Reason: Constipation Mirtazapine (Mirtazapine 7.5 Mg Tablet) 7.5 mg PO BEDTIME [facility] Last Admin: 05/04/22 20:37 Dose: 7.5 mg Documented by: Nicotine (Nicotine 21 Mg Patch.Td24) 21 mg TRANSDERMA DAILY [facility] Last Admin: 05/05/22 08:08 Dose: 21 mg Documented by: Prazosin HCl (Prazosin Hcl 1 Mg Capsule) 1 mg PO BEDTIME [facility]; Protocol Last Admin: 05/04/22 20:37 Dose: 1 mg Documented by: Simethicone (Simethicone 80 Mg Tab.Chew) 80 mg PO QIDWMHS PRN PRN Reason: flatulance Last Admin: 05/02/22 14:33 Dose: 80 mg Documented by: Trazodone HCl (Trazodone Hcl 100 Mg Tablet) 100 mg PO BEDTIME [facility] Last Admin: 05/04/22 20:38 Dose: 100 mg Documented by: Allergies Allergies Allergy/AdvReac Type Severity Reaction Status Date / Time No Known Allergies Allergy Verified 03/12/22 13:54 Assessment & Plan Assessment & Plan (1) Polysubstance abuse: Status: Acute Code(s): F19.10 - Other psychoactive substance abuse, uncomplicated (2) Opioid use disorder: Status: Acute Code(s): F11.90 - Opioid use, unspecified, uncomplicated (3) Cocaine use disorder: Status: Acute Code(s): F14.10 - Cocaine abuse, uncomplicated (4) Bipolar 2 disorder: Status: Acute Code(s): F31.81 - Bipolar II disorder (5) Alcohol use disorder, severe, dependence: Status: Resolved Code(s): F10.20 - Alcohol dependence, uncomplicated (6) Alcohol dependence: Status: Acute Code(s): F10.20 - Alcohol dependence, uncomplicated Plan Plan Bella is a 31 y.o. Female who carries a dx of Bipolar II DO, polysubstance abuse, and severe alcohol abuse. She has co-morbid diagnosis of hepatitis C. She presented to [facility] ED on 04/27/22 due to SI, depression, A/VH. Utox positive for opiates, fentanyl, an cocaine. EKG showed NSR, QTc 437. Li level <0.1. Ethyl alcohol level <10. Pt currently on MAT, suboxone.? 04/30 pt depressed, struggling with hopelessness and SI; wants to stay on suboxone as tablets are tolerable. Pt says she will if she does not get into a program and is worried she'll either OD accidently or on purpose. -will start ativan taper for withdrawal 05/01 continues to be depressed, hopeless to and with SI. Continues to detox 05/02 patient's mood has improved somewhat and she is no longer feeling suicidal. She is contemplating IOP although scenario writer continues to recommend patient attend a residential program initially. 05/03 patient reports mood has improved and she continues to be without any SI. She is pretty subtle on an IOP. She thinks she will be ready to discharge early next week. 05/05/22 No changes today. Plan: Ativan taper dc CIWA Schedule trazodone for insomnia Monitor response to medications. Monitor for safety in the milieu. Discharge on stabilization. Consider section 35. Patient seen. Chart reviewed. Discussed with team. Obtain collateral contact info as needed I spent minutes with the patient and/or on the patient floor today, greater than?50% of which was spent counseling/coordinating care. Patient educated on: medication risk/benefits and other Informed Consent: understands and further education needed Reason for contiued inpatient stay Substantial Risk for: inability to function and rapid decompensation
[2022-05-05] MEDS: Simethicone 80 MG TAB.CHEW PO (17:17)
[2022-05-05 18:00] VITALS: BP 114/72; PULSE 103; RESP 18; TEMP 36.6; O2SAT 98
[2022-05-05] MEDS: chlorproMAZINE HCl 100 MG TABLET PO (20:38)
[2022-05-05] MEDS: Divalproex Sodium ER 250 MG TAB.ER.24H 750 MG PO (20:38)
[2022-05-05] MEDS: LORazepam 1 MG TABLET PO (20:39)
[2022-05-05] MEDS: Mirtazapine 7.5 MG TABLET PO (20:39)
[2022-05-05] MEDS: traZODone HCL 100 MG TABLET PO (20:40)
[2022-05-05] MEDS: Prazosin HCL 1 MG CAPSULE PO (20:40)
[2022-05-06 06:00] VITALS: BP 110/57; PULSE 101; RESP 18; TEMP 36.6; O2SAT 98
[2022-05-06] MEDS: Nicotine 21 MG PATCH.TD24 TRANSDERMA (08:41)
[2022-05-06] MEDS: FLUoxetine HCl 10 MG CAPSULE 30 MG PO (08:42)
[2022-05-06] MEDS: Famotidine 20 MG TABLET PO (08:42)
[2022-05-06] MEDS: Buprenorphine/Naloxone 8/2 mg FILM 1 FILM SUBLINGUAL (08:42)
[2022-05-06] MEDS: busPIRone HCl 10 MG TABLET 30 MG PO (08:42)
[2022-05-06] MEDS: Gabapentin 300 MG CAPSULE 600 MG PO (08:42)
--- NOTE | 2022-05-06 10:14 | PM.PSYDC ---
DS: Providers Provider Date of Service: 05/06/22 Date of admission: 04/27/22 19:18 Date of discharge: 05/06/22 Primary care physician: Unknown Physician Attending physician on admission: Grey Rosario Attending physician on discharge: Grey Rosario DS: Diagnosis Discharge Diagnosis (1) Polysubstance abuse: Status: Acute (2) Opioid use disorder: Status: Acute (3) Cocaine use disorder: Status: Acute (4) Bipolar 2 disorder: Status: Acute (5) Alcohol use disorder, severe, dependence: Status: Resolved (6) Alcohol dependence: Status: Acute DS: Medications Discharge Medications Home Medications: Home Medications Medication Instructions Recorded Confirmed buprenorphine 8 mg-naloxone 2 mg 3 film SUBLINGUAL DAILY 04/27/22 04/27/22 sublingual film Previous Rx's Medication Instructions Recorded buspirone 30 mg tablet 30 mg PO BID 30 Days #60 tab 05/06/22 chlorpromazine 100 mg tablet 100 mg PO BEDTIME 30 Days #30 tab 05/06/22 chlorpromazine 50 mg tablet 50 mg PO TID PRN 30 Days #90 tab 05/06/22 clonidine HCl 0.1 mg tablet 0.1 mg PO BID PRN 30 Days #60 tab 05/06/22 divalproex 250 mg tablet,extended 750 mg PO BEDTIME 30 Days #90 tab 05/06/22 release 24 hr (Depakote ER) famotidine 20 mg tablet 20 mg PO BID 30 Days #60 tab 05/06/22 fluoxetine 10 mg capsule 30 mg PO DAILY 30 Days #90 cap 05/06/22 gabapentin 600 mg tablet 600 mg PO BID 30 Days #60 tab 05/06/22 mirtazapine 7.5 mg tablet 7.5 mg PO BEDTIME 30 Days #30 tab 05/06/22 nicotine 21 mg/24 hr daily 21 mg TRANSDERMAL DAILY PRN 28 05/06/22 transdermal patch Days #28 ea prazosin 1 mg capsule 1 mg PO BEDTIME 30 Days #30 cap 05/06/22 trazodone 100 mg tablet 100 mg PO BEDTIME PRN 30 Days #30 05/06/22 tab Mental Status Exam Mental Status Exam Narrative: Pt is alert and oriented; behavior is cooperative, friendly; dressed in casual attire with combed hair and adequate hygiene; mood is described as good and affect congruent; eye contact appropriate; Speech is normal rate, volume and prosody and not pressured; psychomotor retardation present; thought process is organized and goal directed; Thought content is on tx; denies SI/HI; otherwise pertinent to relevant topics and without any delusional content, paranoid ideations or grandiosity; There is no evidence of perceptual disturbance. ?Patients insight and judgment is fair and adequate. Data Data Completed and Pending Completed studies during hospitalization [Text1]: 04/28/22 05/03/22 05/03/22 08:00 08:43 08:43 WBC 5.7 RBC 3.96 L Hgb 12.1 Hct 37.4 MCV 94.4 MCH 30.6 MCHC 32.4 RDW 13.4 Plt Count 177 MPV 10.5 Immature Gran % (Auto) 0.2 Neut % (Auto) 41.7 L Lymph % (Auto) 46.8 H [place] % (Auto) 6.9 Eos % (Auto) 3.9 Baso % (Auto) 0.5 Lymph # (Auto) 2.7 [place] # (Auto) 0.4 Eos # (Auto) 0.2 Baso # (Auto) 0.0 Abs Immat Gran (auto) 0.01 Absolute Neuts (auto) 2.4 Absolute Nucleated RBC 0.000 Nucleated RBC % (auto) 0.0 Total Bilirubin 0.2 Direct Bilirubin < 0.2 AST 36 H D ALT 40 H Alkaline Phosphatase 76 Ammonia Total Protein 6.5 Albumin 3.9 Vitamin B12 307 Folate 16.3 Valproic Acid 39.1 L 05/03/22 08:43 WBC RBC Hgb Hct MCV MCH MCHC RDW Plt Count MPV Immature Gran % (Auto) Neut % (Auto) Lymph % (Auto) [place] % (Auto) Eos % (Auto) Baso % (Auto) Lymph # (Auto) [place] # (Auto) Eos # (Auto) Baso # (Auto) Abs Immat Gran (auto) Absolute Neuts (auto) Absolute Nucleated RBC Nucleated RBC % (auto) Total Bilirubin Direct Bilirubin AST ALT Alkaline Phosphatase Ammonia 42 Total Protein Albumin Vitamin B12 Folate Valproic Acid DS: Summary Hospital Course Hospital Course: HPI: Bella is a 31 y.o. Female who carries a dx of Bipolar II DO, polysubstance abuse, PTSD, and severe alcohol abuse. She has co-morbid diagnosis of hepatitis C. She presented to [facility] [place] 04/27/22 due to SI, depression, A/VH. Utox positive for opiates, fentanyl, an cocaine. Patient relapsed after about 1 week from her last discharge in the face of her boyfriend starting to drink and use cocaine which was triggering. On admission patient reported she was depressed and that she would kill herself if discharged, since it would trigger hopelessness. She said that this time she wants to go to a program and very much regrets not doing so at her last admission. Patient detoxed from alcohol, cocaine and opiates without incident. She was continued on her home medications and Suboxone was restarted. Patient's gabapentin was also continued and though this carries some risks when combined with substance abuse, patient is aware of this and does not take medications when she relapses; this is also helping to curb some of her alcohol cravings and at this time the potential benefit outweighed the risk. As patient detoxed and as medications took affect her mood improved and depression and SI fully resolved. Patient was engaged in treatment, attending groups. She was appropriate with peers and staff. Initially she had trouble sleeping but this resolved also is detox completed. Patient changed her mind about going to a residential program and instead wanted to attend an IOP. Solar Applications Development Engineer strongly advised that patient go to a residential program which would help her remain sober for longer; however patient declined and instead wanted an IOP, wanting to live at her sober friend's house, instead of her boyfriend's, feeling that she would be able to remain stable and that the increased freedom would give her an opportunity to look for a job. Solar Applications Development Engineer and patient discussed her vulnerability to relapse however patient remained adamant that this was her plan. She continued to deny any SI or HI or AVH and reported that her mood was better. Solar Applications Development Engineer and patient reviewed a safety plan if she were to again become unsafe and patient agrees she would reach out immediately to her supports, or call 911 or Go To The Emergency Room Immediately. Patient placed a 3 day notice wanting to discharge; she is future oriented and hopeful about staying sober and plans to continue to engage in outpatient therapy. Given her chronic and history of severe substance abuse as well as intermittent mood dysregulation, patient remains vulnerable to to both relapse and becoming dysregulated at some time however ad writer and patient discussed this and patient is well aware that her struggles are chronic and will not resolve with further stay on inpatient unit, but rather necessitate long-term outpatient treatment and sobriety which patient will continue to pursue. Pt startes IOP this week. She has demonstrated good behaviors and been in good impulse control during this admission and is sleeping and eating well and tolerating her medications. Her 3 day notice is about due and she does not rise to the level of involuntary commitment. She is not in imminent risk for harm to self or others and her request for discharge is honored. Solar Applications Development Engineer reviewed the risks/side effects of her medication regimen including, but not limited to, the risk of hepatotoxicity given history of hep C; pt understood the risks adn agreed to trial anyway. Patient's Depakote level was subtherapeutic, however she was stable.? Decision to leave dose at subtherapeutic level was made because while she remains with a provisional diagnosis of bipolar type 2 disorder, her history suggests that if she does have bipolar, it is mild and there remains a reasonable chance that her manic-type episodes are due to PTSD/substance abuse.? Also, given her history of hep C there is an effort to keep patient on lowest dose possible where she can be stable but also avoid associated risks/side effects of this mediation.? Solar Applications Development Engineer discussed and patient fully agreed with this approach. Patient will follow up as outpt for treatment for Hep C. Time spent discussing smoking cessation with patient: 3 to 10 minutes Status at Discharge Functional status at discharge: independent ambulation Overall status at discharge: patient is back to baseline Time Spent with Patient Time attestation: Total time spent providing and/or coordinating discharge services: Time spent: Greater than 30 minutes Discharge Plan Discharge Patient Disposition: Home, Self-Care Discharge Diagnosis: Bipolar disorder, type II, recurrent, moderate, most recent episode depressed, in full remission Referrals: [facility] [Other] - 05/07/22 1:00 pm (Julien will contact you by phone to complete the phone intake to begin the virtual IOP) Therapy Intake: [facility] [Other] - 05/07/22 3:00 pm (You will be sent a Zoom link to your email to connect to the virtual therapy intake appointment. You must attend the intake appointment to be referred for a follow-up psychiatric medication appointment within 30 days of your hospital discharge) Suboxone: [facility] [Other] - 05/06/22 1:00 pm (This is an in-person appointment) [facility] [Other] - 1 Week (CLINIC AVAILABLE FOR WALK-INS) Physician,Sarai Corado [Primary Care Provider] - 1 Week (Pt denied a PCP appointment be scheduled. Pt provided [facility] for walk-in availability. [address] [facility] [place] [phone]) Discharge Medications: New nicotine 21 mg/24 hr Patch 24 Hour 21 mg transdermal DAILY PRN (Reason: nicotine cravings) 28 Days Qty: 28 0RF clonidine HCl 0.1 mg Tablet 0.1 mg PO BID PRN (Reason: anxiety) 30 Days Qty: 60 0RF Protocol: Hold for SBP< HOLD for SBP < : 90 fluoxetine 10 mg Capsule 30 mg PO DAILY 30 Days Qty: 90 0RF chlorpromazine 50 mg tablet 50 mg PO TID PRN (Reason: anxiety) 30 Days Qty: 90 0RF Rx Instructions: take 1 to 1.5 tabs as needed for anxiety up to 3 times per day trazodone 100 mg Tablet 100 mg PO BEDTIME PRN (Reason: insomnia) 30 Days Qty: 30 0RF famotidine 20 mg Tablet 20 mg PO BID 30 Days Qty: 60 0RF Continued buprenorphine-naloxone 8-2 mg film 3 film sublingual DAILY gabapentin 600 mg tablet 600 mg PO BID 30 Days Qty: 60 0RF chlorpromazine 100 mg Tablet 100 mg PO BEDTIME 30 Days Qty: 30 0RF prazosin 1 mg Capsule 1 mg PO BEDTIME 30 Days Qty: 30 0RF buspirone 30 mg Tablet 30 mg PO BID 30 Days Qty: 60 0RF divalproex [Depakote ER] 250 mg Tablet Extended Release 24 Hr 750 mg PO BEDTIME 30 Days Qty: 90 0RF mirtazapine 7.5 mg Tablet 7.5 mg PO BEDTIME 30 Days Qty: 30 0RF Discontinued fluoxetine [Prozac] 10 mg Tablet 10 mg PO TID propranolol 10 mg Tablet 10 mg PO TID PRN (Reason: Anxiety) Discharge Orders: Discharge Order (Routine); Ordered 05/06/22 Ordered By: Grey Rosario Diet: regular diet Activity on Discharge: As tolerated Stand Alone Forms: Patient Portal Discharge page, Community Support Care Plan Goals: Maintain mood and safe behaviors Take medications as prescribed Continue to pursue sobriety Practice coping skills Continue with outpatient providers and reach out to them as needed Health Concerns: Mood stability and behaviors Sobriety Plan of Treatment: Follow up with your PCP, psychiatric provider and other outpatient providers regarding above concerns Take medications as prescribed Assessment: Risk assessment at time of discharge:? Patient was interviewed prior to discharge and found to be fully oriented and without any SI or HI. Patient has insight and demonstrates good judgment in terms of wanting to pursue treatment. Patient is not in imminent risk of harm to self or others and has a safety plan that includes presenting to the closest ER or calling 911 if feeling unsafe.? Patient has been observed closely by nursing and unit staff throughout admission; patient has not engaged in any behaviors that suggest dangerousness to self or others and has demonstrated appropriate behaviors and impulse control Discharge Date/Time: 05/06/22 13:11
[2022-05-06] MEDS: Naloxone HCl Nasal TAKE HOME 4 MG SPRAY NOSTRILALT (10:50)
== END 2022-05-06 13:11 | disposition home or self-care (01) | DRG 753 ==
LOC: HO.ED 07:02 → HO.PM5 19:24
PROVIDERS: Psychiatry & Neurology Psychiatry; Admitting Provider Psychiatry & Neurology Psychiatry; Emergency Provider Emergency Medicine; Visit Provider Psychiatry & Neurology Psychiatry
DX: F31.81 Bipolar II disorder (principal); R45.851 Suicidal ideations; F10.20 Alcohol dependence, uncomplicated; F19.10 Other psychoactive substance abuse, uncomplicated; B19.20 Unspecified viral hepatitis C without hepatic coma; F11.20 Opioid dependence, uncomplicated; F17.210 Nicotine dependence, cigarettes, uncomplicated; Z71.6 Tobacco abuse counseling; Z20.822 Contact with and (suspected) exposure to COVID-19; Z79.899 Other long term (current) drug therapy
CPT/HCPCS: 36415; 80048; 80053; 80061; 80076; 80143; 80164; 80179; 80307; 81003; 81025; 82077; 82140; 82607; 82746; 83735; 84443; 85025; 87635; 99285

== ENCOUNTER → 2022-05-06 13:01 | Outpatient (BNVA) | payer OTHER, SELFPAY | PROVIDERS: Visit Provider Internal Medicine | DX: F11.20 Opioid dependence, uncomplicated (principal) | CPT/HCPCS: 99211 ==

== ENCOUNTER 2022-05-12 03:45 | Emergency (ER) | payer OTHER, SELFPAY ==
[2022-05-12 03:45] VITALS: BP 157/70; PULSE 79; RESP 16; TEMP 36.9; O2SAT 95; BMI 23.3
--- NOTE | 2022-05-12 03:56 | PC.NURSE ---
pt given food per MD.
[2022-05-12 04:03] LABS: Appearance Urine HAZY; Color Urine DK YELLOW; Glucose Urine UA NEG (NEG); Leukocyte Esterase Urine 1+ (NEG); Nitrite Urine NEG (NEG); Specific Gravity - Urine >= 1.030 (1.005-1.025); Urine Blood TRACE (NEG); Urine Ketones 15 MG/DL (NEG); Urine Protein TRACE MG/DL (NEG-TRACE)
[2022-05-12 04:07] LABS: UPreg QC Valid YES; Urine Pregnancy NEGATIVE (NEGATIVE)
[2022-05-12 04:11] LABS: Amorphous Sediment Urine 2+ /LPF; Hyaline Casts Urine 0-2 /LPF; Mucus Urine TRACE /LPF; RBC Urine 0-2 /HPF (0); Squamous Epithelial Cell Urine 2+ /LPF
[2022-05-12 04:16] LABS: Basophils Percent Auto 0.2 % (0-2); Hematocrit 35.8 % (37.0-47.0); Hemoglobin 12.2 g/dl (12.0-16.0); Imm Gran Abs Auto 0.04 X10*3/uL (0.00-0.03); Imm Gran Pct Auto 0.4 % (0.0-0.4); Lymphocytes Absolute Auto 1.1 X10*3/uL (1.2-4.9); Lymphocytes Percent Auto 12.3 % (20-40); MANUAL DIFF FLAG NO; Mean Corpuscular HGB Conc 34.1 g/dl (31.0-35.0); Mean Corpuscular Hemoglobin 30.3 pg (27.0-33.0); Mean Corpuscular Volume 88.8 fL (80.0-98.0); Mean Platelet Volume 10.2 fL (9.4-12.3); Monocytes Absolute Auto 0.8 X10*3/uL (0.1-1.2); Neutrophils Absolute Auto 7.3 x10*3/uL (2.0-8.3); Neutrophils Percent Auto 78.1 % (45-73); Platelet Count 201 X10*3/uL (160-400); Red Blood Count 4.03 X10*6/uL (4.20-5.50); Red Cell Distribution Width 13.3 % (11.0-16.0); White Blood Count 9.3 X10*3/uL (4.8-10.8)
[2022-05-12 04:21] LABS: COVID-19 Test Positive (Negative)
[2022-05-12 04:29] LABS: Amphetamine Screen Urine Not Detected (Not Detect); Barbiturates, Urine Not Detected (Not Detect); Benzodiazepines Screen Urine Not Detected (Not Detect); Cannabinoid Screen Urine Not Detected (Not Detect); Cocaine Screen Urine POSITIVE (Not Detect); Fentanyl, urine POSITIVE (Not Detect); Opiate Screen Urine POSITIVE (Not Detect); Phencyclidine Screen Urine Not Detected (Not Detect)
[2022-05-12 04:33] LABS: Ethanol 14 mg/dL
[2022-05-12 04:37] LABS: Alanine Aminotransferase 29 U/L (0-31); Albumin Level 4.4 g/dL (3.5-5.0); Alkaline Phosphatase 73 U/L (39-117); Anion Gap 16 (12-20); Aspartate Amino Transferase 42 U/L (5-31); Bilirubin Total 0.5 mg/dL (0.0-1.0); Blood Urea Nitrogen 16 mg/dL (9-16); Calcium 9.3 mg/dL (8.4-10.2); Carbon Dioxide 21 mmol/L (22-29); Chloride 102 mmol/L (96-108); Creatinine Clr Calc Pharmacy 91.9; Estimated Glomerular Filt Rate > 60; Glucose Random 108 mg/dL (60-115); Potassium 4.3 mmol/L (3.3-5.1); Sodium 135 mmol/L (135-145)
--- NOTE | 2022-05-12 05:01 | ED.PSYCH ---
HPI - Psych General Chief Complaint: Psychiatric Symptoms Stated Complaint: crisis Time Seen by Provider: 05/12/22 04:52 History of Present Illness HPI Narrative: Patient is 31 years old positive suicidal ideation. Positive history of EtOH positive history of cocaine use positive history of opiate use. Just got out of detox on Friday. Decided to reuse cocaine and heroin. Been drinking alcohol. Also feeling slightly chilled coughing not quite right. Patient presents to the ED for further evaluation. She did not receive any coronavirus vaccine. She has been sick for about 2 days. Nonspecific symptoms. Have not had previous COVID infection. Patient from home. She does not have any significant past medical history other than psychiatric and polysubstance abuse. She is a smoker. No history of COPD. Related Data Home Medications Medication Instructions Recorded Confirmed buprenorphine 8 mg-naloxone 2 mg 3 film sublingual DAILY 04/27/22 04/27/22 sublingual film Previous Rx's Medication Instructions Recorded buprenorphine 8 mg-naloxone 2 mg 1 film buccal TID 8 days #24 ea 05/06/22 sublingual film buspirone 30 mg tablet 30 mg PO BID 30 days #60 tabs 05/06/22 chlorpromazine 100 mg tablet 100 mg PO BEDTIME 30 days #30 tabs 05/06/22 chlorpromazine 50 mg tablet 50 mg PO TID PRN anxiety 30 days 05/06/22 #90 tabs clonidine HCl 0.1 mg tablet 0.1 mg PO BID PRN anxiety 30 days 05/06/22 #60 tabs divalproex 250 mg tablet,extended 750 mg PO BEDTIME 30 days #90 tabs 05/06/22 release 24 hr (Depakote ER) famotidine 20 mg tablet 20 mg PO BID 30 days #60 tabs 05/06/22 fluoxetine 10 mg capsule 30 mg PO DAILY 30 days #90 caps 05/06/22 gabapentin 600 mg tablet 600 mg PO BID 30 days #60 tabs 05/06/22 mirtazapine 7.5 mg tablet 7.5 mg PO BEDTIME 30 days #30 tabs 05/06/22 nicotine 21 mg/24 hr daily 21 mg transdermal DAILY PRN 05/06/22 transdermal patch nicotine cravings 28 days #28 ea prazosin 1 mg capsule 1 mg PO BEDTIME 30 days #30 caps 05/06/22 trazodone 100 mg tablet 100 mg PO BEDTIME PRN insomnia 30 05/06/22 days #30 tabs Allergies Allergy/AdvReac Type Severity Reaction Status Date / Time No Known Allergies Allergy Verified 05/06/22 13:10 Review of Systems Review of Systems: Positive coughing upper respiratory symptoms Positive recreational drug use Positive suicidal ideation Yes all other systems are reviewed and are negative [facility] Past Medical History Attestation statement: The following information was validated with the patient. Medical History Alcohol dependence Alcohol use disorder, severe, dependence Alcohol use disorder, severe, dependence Cocaine use Cocaine use disorder Cocaine use disorder JOANN (generalized anxiety disorder) History of hepatitis C MDD (major depressive disorder), recurrent episode, moderate Opiate abuse, continuous Opioid use disorder Opioid use disorder, moderate, dependence Polysubstance abuse Smoker Surgical History S/P laparoscopic appendectomy Social History Social History Household Members: Significant Other Household Members Other:: ex boyfriend Housing: Apartment Housing Other:: Rented a room with ex in an apartment Do you presently have visiting nurse or other home services: No Alcohol intake: current Alcohol intake frequency: 3 or more drinks per day Alcohol type: hard liquor Patient Tobacco Use Status: Current someday Tobacco user Tobacco use type: Cigarette Cigarette Packs Per Day: 0.75 Cigarettes Per Day: 20 Years Smoked: 13 e-Cigarette/Vaping Use: Currently Using Second Hand Smoke Exposure: Yes Use of substances other than those prescribed or required for medical reasons: Yes Substance Use Type: Crack/Cocaine and Heroin Substance Use Frequency: Chronic Longstanding Last Used Substance: Just Prior to Admission Any prior treatment program specific to substance use: No Advance Directives: No Advance Directives Information Provided: Yes service: No Current occupational status: unemployed Sexual orientation: Straight/Heterosexual Physical Exam Vital Signs: Vital Signs: Last Vital Signs Temp 98.4 F 05/12/22 03:45 Pulse 79 05/12/22 03:45 Resp 16 05/12/22 03:45 BP 157/70 H 05/12/22 03:45 Pulse Ox 95 05/12/22 03:45 O2 Del Method 05/12/22 03:45 BMI result Body Mass Index 23.3 Appearance: Alert. Oriented X3. No acute distress. Eyes: Pupils equal, round and reactive to light. ENT: Pharynx normal. Neck: Normal inspection. Neck supple. No lymph nodes noted. No crepitus CVS: Normal heart rate and rhythm. Pulses normal. Normal S1 and S2 Respiratory: No respiratory distress. Breath sounds normal. No Wheezing. No rales Abdomen: Soft and nontender. No rigidity. No distention. good BS x4 Skin: Skin warm and dry. Normal skin color. Normal skin turgor. Extremities: No lower extremity edema. Neurovascular intact to all extremities. No Lacerations. No Rash Neuro: Oriented X 3. No motor deficit. No sensory deficit. Moving all extermities. No slurred speech MDM - Psych MDM Narrative Medical decision making narrative: Patient is 31 years old presents today with having suicidal ideation with plans of overdosing on heroin. Patient will get BH an evaluation. Positive upper respiratory symptoms nonspecific. O2 sat is normal. Patient COVID test came back positive. At this point patient is not vaccinated. She did not want the Plaxovid for now. will monitor and treat sx Lab Data Result diagrams: 05/12/22 04:10 05/12/22 04:10 Labs: Lab Results 05/12/22 05/12/22 05/12/22 Range/Units 03:57 03:57 03:57 WBC (4.8-10.8) X10*3/uL RBC (4.20-5.50) X10*6/uL Hgb (12.0-16.0) g/dl Hct (37.0-47.0) % MCV (80.0-98.0) fL MCH (27.0-33.0) pg MCHC (31.0-35.0) g/dl RDW (11.0-16.0) % Plt Count (160-400) X10*3/uL MPV (9.4-12.3) fL Immature Gran % (Auto) (0.0-0.4) % Neut % (Auto) (45-73) % Lymph % (Auto) (20-40) % [place] % (Auto) (2-11) % Eos % (Auto) (0-4) % Baso % (Auto) (0-2) % Lymph # (Auto) (1.2-4.9) X10*3/uL [place] # (Auto) (0.1-1.2) X10*3/uL Eos # (Auto) (0.0-0.4) X10*3/uL Baso # (Auto) (0.0-0.2) X10*3/uL Abs Immat Gran (auto) (0.00-0.03) X10*3/uL Absolute Neuts (auto) (2.0-8.3) x10*3/uL Absolute Nucleated RBC (0.0-0.012) X10*3/uL Nucleated RBC % (auto) (0.0-0.2) /100WBC Sodium (135-145) mmol/L Potassium (3.3-5.1) mmol/L Chloride (96-108) mmol/L Carbon Dioxide (22-29) mmol/L Anion Gap (12-20) BUN (9-16) mg/dL Creatinine (0.5-1.4) mg/dL Estim Creat Clear Calc Estimated GFR Random Glucose (60-115) mg/dL Calcium (8.4-10.2) mg/dL Total Bilirubin (0.0-1.0) mg/dL AST (5-31) U/L ALT (0-31) U/L Alkaline Phosphatase (39-117) U/L Total Protein (6.5-8.0) g/dL Albumin (3.5-5.0) g/dL Urine Color DK YELLOW Urine Appearance HAZY Urine pH 5.0 (5.0-8.0) Ur Specific [place] >= 1.030 H (1.005-1.025) Urine Protein TRACE (NEG-TRACE) MG/DL Urine Glucose (UA) NEG (NEG) MG/DL Urine Ketones 15 (NEG) MG/DL Urine Blood TRACE (NEG) Urine Nitrite NEG (NEG) Ur Leukocyte Esterase 1+ H (NEG) Urine RBC 0-2 (0) /HPF Urine WBC 5-9 H (0-4) /HPF Ur Squamous Epith Cells 2+ /LPF Amorphous Sediment 2+ /LPF Urine Bacteria NONE /LPF Hyaline Casts 0-2 /LPF Urine Mucus TRACE /LPF Urine Test NEGATIVE (NEGATIVE) Urine Opiates Screen POSITIVE H (Not Detect) Urine Fentanyl Screen POSITIVE H (Not Detect) Ur Barbiturates Screen Not Detected (Not Detect) Ur Phencyclidine Scrn Not Detected (Not Detect) Ur Amphetamines Screen Not Detected (Not Detect) U Benzodiazepines Scrn Not Detected (Not Detect) Urine Cocaine Screen POSITIVE H (Not Detect) U Marijuana (THC) Screen Not Detected (Not Detect) Ethyl Alcohol mg/dL COVID-19 (ALBA) (Negative) COVID-19 Clin Com 05/12/22 05/12/22 05/12/22 Range/Units 04:10 04:10 04:10 WBC 9.3 (4.8-10.8) X10*3/uL RBC 4.03 L (4.20-5.50) X10*6/uL Hgb 12.2 (12.0-16.0) g/dl Hct 35.8 L (37.0-47.0) % MCV 88.8 (80.0-98.0) fL MCH 30.3 (27.0-33.0) pg MCHC 34.1 (31.0-35.0) g/dl RDW 13.3 (11.0-16.0) % Plt Count 201 (160-400) X10*3/uL MPV 10.2 (9.4-12.3) fL Immature Gran % (Auto) 0.4 (0.0-0.4) % Neut % (Auto) 78.1 H (45-73) % Lymph % (Auto) 12.3 L (20-40) % [place] % (Auto) 9.0 (2-11) % Eos % (Auto) 0.0 (0-4) % Baso % (Auto) 0.2 (0-2) % Lymph # (Auto) 1.1 L (1.2-4.9) X10*3/uL [place] # (Auto) 0.8 (0.1-1.2) X10*3/uL Eos # (Auto) 0.0 (0.0-0.4) X10*3/uL Baso # (Auto) 0.0 (0.0-0.2) X10*3/uL Abs Immat Gran (auto) 0.04 H (0.00-0.03) X10*3/uL Absolute Neuts (auto) 7.3 (2.0-8.3) x10*3/uL Absolute Nucleated RBC 0.000 (0.0-0.012) X10*3/uL Nucleated RBC % (auto) 0.0 (0.0-0.2) /100WBC Sodium 135 (135-145) mmol/L Potassium 4.3 (3.3-5.1) mmol/L Chloride 102 (96-108) mmol/L Carbon Dioxide 21 L (22-29) mmol/L Anion Gap 16 (12-20) BUN 16 (9-16) mg/dL Creatinine 0.83 (0.5-1.4) mg/dL Estim Creat Clear Calc 91.9 Estimated GFR > 60 Random Glucose 108 (60-115) mg/dL Calcium 9.3 (8.4-10.2) mg/dL Total Bilirubin 0.5 (0.0-1.0) mg/dL AST 42 H (5-31) U/L ALT 29 (0-31) U/L Alkaline Phosphatase 73 (39-117) U/L Total Protein 7.0 (6.5-8.0) g/dL Albumin 4.4 (3.5-5.0) g/dL Urine Color Urine Appearance Urine pH (5.0-8.0) Ur Specific [place] (1.005-1.025) Urine Protein (NEG-TRACE) MG/DL Urine Glucose (UA) (NEG) MG/DL Urine Ketones (NEG) MG/DL Urine Blood (NEG) Urine Nitrite (NEG) Ur Leukocyte Esterase (NEG) Urine RBC (0) /HPF Urine WBC (0-4) /HPF Ur Squamous Epith Cells /LPF Amorphous Sediment /LPF Urine Bacteria /LPF Hyaline Casts /LPF Urine Mucus /LPF Urine Test (NEGATIVE) Urine Opiates Screen (Not Detect) Urine Fentanyl Screen (Not Detect) Ur Barbiturates Screen (Not Detect) Ur Phencyclidine Scrn (Not Detect) Ur Amphetamines Screen (Not Detect) U Benzodiazepines Scrn (Not Detect) Urine Cocaine Screen (Not Detect) U Marijuana (THC) Screen (Not Detect) Ethyl Alcohol mg/dL COVID-19 (ALBA) Positive A (Negative) COVID-19 Clin Com See Note 05/12/22 Range/Units 04:10 WBC (4.8-10.8) X10*3/uL RBC (4.20-5.50) X10*6/uL Hgb (12.0-16.0) g/dl Hct (37.0-47.0) % MCV (80.0-98.0) fL MCH (27.0-33.0) pg MCHC (31.0-35.0) g/dl RDW (11.0-16.0) % Plt Count (160-400) X10*3/uL MPV (9.4-12.3) fL Immature Gran % (Auto) (0.0-0.4) % Neut % (Auto) (45-73) % Lymph % (Auto) (20-40) % [place] % (Auto) (2-11) % Eos % (Auto) (0-4) % Baso % (Auto) (0-2) % Lymph # (Auto) (1.2-4.9) X10*3/uL [place] # (Auto) (0.1-1.2) X10*3/uL Eos # (Auto) (0.0-0.4) X10*3/uL Baso # (Auto) (0.0-0.2) X10*3/uL Abs Immat Gran (auto) (0.00-0.03) X10*3/uL Absolute Neuts (auto) (2.0-8.3) x10*3/uL Absolute Nucleated RBC (0.0-0.012) X10*3/uL Nucleated RBC % (auto) (0.0-0.2) /100WBC Sodium (135-145) mmol/L Potassium (3.3-5.1) mmol/L Chloride (96-108) mmol/L Carbon Dioxide (22-29) mmol/L Anion Gap (12-20) BUN (9-16) mg/dL Creatinine (0.5-1.4) mg/dL Estim Creat Clear Calc Estimated GFR Random Glucose (60-115) mg/dL Calcium (8.4-10.2) mg/dL Total Bilirubin (0.0-1.0) mg/dL AST (5-31) U/L ALT (0-31) U/L Alkaline Phosphatase (39-117) U/L Total Protein (6.5-8.0) g/dL Albumin (3.5-5.0) g/dL Urine Color Urine Appearance Urine pH (5.0-8.0) Ur Specific [place] (1.005-1.025) Urine Protein (NEG-TRACE) MG/DL Urine Glucose (UA) (NEG) MG/DL Urine Ketones (NEG) MG/DL Urine Blood (NEG) Urine Nitrite (NEG) Ur Leukocyte Esterase (NEG) Urine RBC (0) /HPF Urine WBC (0-4) /HPF Ur Squamous Epith Cells /LPF Amorphous Sediment /LPF Urine Bacteria /LPF Hyaline Casts /LPF Urine Mucus /LPF Urine Test (NEGATIVE) Urine Opiates Screen (Not Detect) Urine Fentanyl Screen (Not Detect) Ur Barbiturates Screen (Not Detect) Ur Phencyclidine Scrn (Not Detect) Ur Amphetamines Screen (Not Detect) U Benzodiazepines Scrn (Not Detect) Urine Cocaine Screen (Not Detect) U Marijuana (THC) Screen (Not Detect) Ethyl Alcohol 14 mg/dL COVID-19 (ALBA) (Negative) COVID-19 Clin Com Discharge Plan Discharge Clinical Impression: Opioid use disorder, Cocaine use disorder, Bipolar 2 disorder, Depression, Polysubstance abuse, COVID-19 Patient Disposition: Still a Patient Prescriptions: No Action buprenorphine-naloxone 8-2 mg film 1 film buccal TID 8 Days Qty: 24 0RF buprenorphine-naloxone 8-2 mg film 3 film sublingual DAILY nicotine 21 mg/24 hr Patch 24 Hour 21 mg transdermal DAILY PRN (Reason: nicotine cravings) 28 Days Qty: 28 0RF clonidine HCl 0.1 mg Tablet 0.1 mg PO BID PRN (Reason: anxiety) 30 Days Qty: 60 0RF Protocol: Hold for SBP< HOLD for SBP < : 90 fluoxetine 10 mg Capsule 30 mg PO DAILY 30 Days Qty: 90 0RF chlorpromazine 50 mg tablet 50 mg PO TID PRN (Reason: anxiety) 30 Days Qty: 90 0RF Rx Instructions: take 1 to 1.5 tabs as needed for anxiety up to 3 times per day trazodone 100 mg Tablet 100 mg PO BEDTIME PRN (Reason: insomnia) 30 Days Qty: 30 0RF famotidine 20 mg Tablet 20 mg PO BID 30 Days Qty: 60 0RF gabapentin 600 mg tablet 600 mg PO BID 30 Days Qty: 60 0RF chlorpromazine 100 mg Tablet 100 mg PO BEDTIME 30 Days Qty: 30 0RF prazosin 1 mg Capsule 1 mg PO BEDTIME 30 Days Qty: 30 0RF buspirone 30 mg Tablet 30 mg PO BID 30 Days Qty: 60 0RF divalproex [Depakote ER] 250 mg Tablet Extended Release 24 Hr 750 mg PO BEDTIME 30 Days Qty: 90 0RF mirtazapine 7.5 mg Tablet 7.5 mg PO BEDTIME 30 Days Qty: 30 0RF
[2022-05-12] MEDS: Acetaminophen 325 MG TABLET 650 MG PO ×2 (05:03→10:18)
--- NOTE | 2022-05-12 07:44 | MHC.CARE ---
smart sheet completed
[2022-05-12] MEDS: hydrOXYzine HCL 25 MG TABLET PO (10:18)
--- NOTE | 2022-05-12 10:45 | PHA.MEDREC ---
med rec complete, pt was just discharged a few days ago Pharmacy Consult ? Medication Reconciliation Pharmacy has completed the medication reconciliation.
[2022-05-12 17:53] VITALS: BP 101/44; PULSE 72; RESP 18; TEMP 36.6; O2SAT 96
[2022-05-12 20:00] VITALS: RESP 12
[2022-05-12] MEDS: LORazepam 1 MG TABLET 2 MG PO (22:10)
[2022-05-12 23:30] VITALS: RESP 16; RESP 18
[2022-05-13] VITALS (7 sets, daily range): BP systolic 95–104; BP diastolic 48–55; PULSE 63–65; RESP 16; TEMP 36.9; O2SAT 98–99
--- NOTE | 2022-05-13 18:10 | PC.NURSE ---
Pt A&Ox4, calm and cooperative throughout shift, no complaints of pain, medicated as per MAR orders. Awaiting placement at this time, does admit to previous SI with a plan but denies at this time. Call marie within reach, sitter in place covid precautions. Will continue to monitor.,
[2022-05-13] MEDS: hydrOXYzine HCL 25 MG TABLET PO (19:50)
[2022-05-13] MEDS: Gabapentin 600 MG TABLET PO (23:20)
[2022-05-13] MEDS: Mirtazapine 7.5 MG TABLET PO (23:20)
[2022-05-13] MEDS: Famotidine 20 MG TABLET PO (23:20)
[2022-05-13] MEDS: busPIRone HCl 10 MG TABLET 30 MG PO (23:20)
[2022-05-13] MEDS: traZODone HCL 100 MG TABLET PO (23:24)
[2022-05-13] MEDS: Divalproex Sodium ER 250 MG TAB.ER.24H 750 MG PO (23:34)
[2022-05-13] MEDS: chlorproMAZINE HCl 100 MG TABLET PO (23:34)
[2022-05-13] MEDS: Prazosin HCL 1 MG CAPSULE PO (23:34)
[2022-05-14] VITALS: RESP 16
--- NOTE | 2022-05-14 03:13 | PC.NURSE ---
Patient is alert and oriented x3, pleasant and cooperative. She is able to make her needs known. Patient denies SI/homicidal thoughts and states she would like to speak to N in the morning,.
[2022-05-14 05:55] VITALS: BP 92/49; PULSE 71; RESP 16; TEMP 37.3; O2SAT 97
--- NOTE | 2022-05-14 07:27 | PC.NURSE ---
IGLESIA contacted-jose manuelkje to [facility] to come and evaluate patiet today.
[2022-05-14] MEDS: Buprenorphine/Naloxone 8/2 mg FILM 3 FILM SUBLINGUAL (08:57)
[2022-05-14] MEDS: busPIRone HCl 10 MG TABLET 30 MG PO (08:57)
[2022-05-14] MEDS: Gabapentin 600 MG TABLET PO (08:57)
[2022-05-14] MEDS: Famotidine 20 MG TABLET PO (08:58)
[2022-05-14] MEDS: FLUoxetine HCl 10 MG CAPSULE 30 MG PO (08:58)
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
[2022-05-14] MEDS: Naloxone HCl Nasal TAKE HOME 4 MG SPRAY NOSTRILALT (12:16)
== END 2022-05-14 12:30 | disposition home or self-care (01) ==
PROVIDERS: Emergency Provider Emergency Medicine Emergency Medical Services; PCP Internal Medicine
DX: F11.20 Opioid dependence, uncomplicated (principal); F14.90 Cocaine use, unspecified, uncomplicated; F31.81 Bipolar II disorder; F33.9 Major depressive disorder, recurrent, unspecified; R45.851 Suicidal ideations; U07.1 COVID-19; N39.0 Urinary tract infection, site not specified; F17.210 Nicotine dependence, cigarettes, uncomplicated; Z79.899 Other long term (current) drug therapy
CPT/HCPCS: 36415; 80053; 80307; 81001; 81003; 81025; 82077; 85025; 87086; 87147; 87635; 99285

== ENCOUNTER → 2022-05-21 09:16 | Outpatient (BNVA) | payer OTHER, SELFPAY | PROVIDERS: PCP Internal Medicine; Visit Provider Nurse Practitioner Psychiatric/Mental Health | DX: F11.20 Opioid dependence, uncomplicated (principal) | CPT/HCPCS: 99211 ==

== ENCOUNTER 2022-07-26 02:42 | Inpatient (IN) | payer OTHER, SELFPAY ==
[2022-07-26] VITALS (8 sets, daily range): BP systolic 86–120; BP diastolic 40–76; PULSE 74–110; RESP 10–18; TEMP 36.7–37.6; O2SAT 94–98; BMI 23.9
--- NOTE | ~2022-07-26 | CT_ITS ---
EXAMINATION: CT SOFT TISSUE NECK WITH CONTRAST CLINICAL INFORMATION: Abscess drained but swelling more medially COMPARISON: Neck CT 07/26/2022 TECHNIQUE: Following the intravenous administration of 60 mL of Omnipaque 350 intravenous contrast, helical imaging was performed in the axial plane with generation of coronal and sagittal reformatted images. This CT examination was performed using dose optimization techniques as appropriate, variously including the following: *Automated exposure control *Adjustment of mA and/or kV according to patient size (this includes techniques or standardized protocols for targeted exams where dose is matched to indication/reason for exam; i.e. extremities or head) *Use of iterative reconstruction technique DLP: 513 mGy-cm FINDINGS: Interval in the the right lower lateral neck abscess. There is small bubble of gas and trace amount of residual fluid remaining that measures approximately 0.5 x 1.1 x 1.6 cm in size on series 2 image 69 and coronal image 42. Slightly more extensive diffuse subcutaneous edema in the right and left neck and extending along the upper anterior chest. Normal appearance of the globes and retro-orbital structures, ground equipment mechanic space and parapharyngeal fat. Major salivary glands and thyroid gland are unremarkable. No mucosal space mass. Laryngeal structures are unremarkable. Normal appearance of the carotid spaces. Internal jugular veins enhance normally. No retropharyngeal fluid collection. No cervical lymphadenopathy by size criteria. Small bilateral pleural effusions. Mixed fat and soft tissue attenuation in the anterior mediastinum, presumably prominent thymic tissue. Minimal subsegmental atelectasis in the peripheral right lung. Visualized intracranial contents grossly unremarkable. Paranasal sinuses and mastoid air cells normally aerated. No acute fracture. No suspicious osseous lesion. CT/CT soft tissue neck w con IMPRESSION: fluid and small bubble of gas remaining, as above. 2. Increased mild subcutaneous edema throughout the right lower neck and upper chest. Correlate with evidence of cellulitis on exam. 3. No new loculated fluid collection/abscess elsewhere. 4. Small bilateral pleural effusions.
--- NOTE | ~2022-07-26 | CT_ITS ---
EXAMINATION: CT SOFT TISSUE NECK WITH CONTRAST CLINICAL INFORMATION: Right IJ abscess COMPARISON: None TECHNIQUE: Following the intravenous administration of 75 mL of Omnipaque 350 intravenous contrast, helical imaging was performed in the axial plane with generation of coronal and sagittal reformatted images. This CT examination was performed using dose optimization techniques as appropriate, variously including the following: *Automated exposure control *Adjustment of mA and/or kV according to patient size (this includes techniques or standardized protocols for targeted exams where dose is matched to indication/reason for exam; i.e. extremities or head) *Use of iterative reconstruction technique DLP: 401 mGy-cm FINDINGS: There is an irregularly shaped, peripherally enhancing low-density collection along the posterior aspect of the lower right sternocleidomastoid muscle in the supraclavicular region, measuring approximately 3.5 x 3.1 cm in the axial plane and 4.5 cm in craniocaudal dimension. Appearance is consistent with abscess. The nondilated right external jugular vein is suspected to course through the abscess and is not opacified in this segment; the segment above this region in the upper neck appears patent and nondilated. There is surrounding stranding extending superiorly into the upper neck as well as inferiorly into the right chest wall. Overlying skin thickening noted. Scattered, predominantly subcentimeter cervical lymph nodes in the right neck are favored to be reactive. The right internal jugular vein is patent. The nasopharynx, oropharynx, and hypopharynx are patent. No mucosal pharyngeal abnormality is seen. The parapharyngeal fat is preserved. The carotid vasculature is patent. The thyroid gland is unremarkable. The lung apices are clear. Visualized portions of the brain parenchyma are unremarkable. The mastoid air cells are well aerated. The paranasal sinuses are clear. The visualized orbits are unremarkable. The mandibular condyles are well-seated in the condylar fossa. No acute fracture is seen. CT/CT soft tissue neck w con IMPRESSION: Irregularly shaped, peripherally enhancing collection along the posterior aspect of the lower right sternocleidomastoid muscle measuring up to 4.5 cm, consistent with abscess. The nondilated right external jugular vein appears to course through this collection and is not opacified in this segment. Surrounding edema and overlying skin thickening.
[2022-07-26 03:50] LABS: MANUAL DIFF FLAG NO
[2022-07-26 03:52] LABS: Basophils Percent Auto 0.2 % (0-2); Eosinophils Absolute Auto 0.2 X10*3/uL (0.0-0.4); Eosinophils Percent Auto 1.5 % (0-4); Hematocrit 30.5 % (37.0-47.0); Imm Gran Abs Auto 0.02 X10*3/uL (0.00-0.03); Imm Gran Pct Auto 0.2 % (0.0-0.4); Lymphocytes Absolute Auto 2.6 X10*3/uL (1.2-4.9); Lymphocytes Percent Auto 26.5 % (20-40); Mean Corpuscular HGB Conc 32.8 g/dl (31.0-35.0); Mean Corpuscular Hemoglobin 28.4 pg (27.0-33.0); Mean Corpuscular Volume 86.6 fL (80.0-98.0); Monocytes Absolute Auto 0.6 X10*3/uL (0.1-1.2); Monocytes Percent Auto 6.1 % (2-11); Neutrophils Absolute Auto 6.5 x10*3/uL (2.0-8.3); Neutrophils Percent Auto 65.5 % (45-73); Platelet Count 198 X10*3/uL (160-400); Red Blood Count 3.52 X10*6/uL (4.20-5.50); White Blood Count 9.9 X10*3/uL (4.8-10.8)
[2022-07-26 04:05] LABS: Lactic Acid 0.7 mmol/L (0.5-2.0)
[2022-07-26 04:10] LABS: Acetaminophen LAB < 1 mcg/mL (<30); Alanine Aminotransferase 47 U/L (0-31); Albumin Level 3.6 g/dL (3.5-5.0); Alkaline Phosphatase 113 U/L (39-117); Anion Gap 14 (12-20); Aspartate Amino Transferase 40 U/L (5-31); Bilirubin Total 0.6 mg/dL (0.0-1.0); Blood Urea Nitrogen 8 mg/dL (9-16); Calcium 8.8 mg/dL (8.4-10.2); Carbon Dioxide 24 mmol/L (22-29); Chloride 101 mmol/L (96-108); Creatinine Clr Calc Pharmacy 95.4; Estimated Glomerular Filt Rate > 60; Ethanol < 10 mg/dL; Glucose Random 106 mg/dL (60-115); Potassium 3.5 mmol/L (3.3-5.1); Salicylate < 5.0 mg/dL (15-30); Sodium 135 mmol/L (135-145); Total Protein 6.2 g/dL (6.5-8.0)
--- NOTE | 2022-07-26 04:19 | PC.NURSE ---
Addendum entered by Charlotte Roman 07/26/22 04:36: Per security, upon arrival to [facility] EMS made security aware that the pt disclosed having unsecured sharps in her big y bag which caused EMS to request security's assistance with removing/retrieving items from the ambulance. Pt's items were secured at that time in the decon room with no belongings list completed/on file. Pt's clothing and black bra were added to the bag by security. Original Note: No belongings list completed per security as they report this is not usually completed. pt's belongings secured prior to pt's arrival to bedside per ems reports.
--- NOTE | 2022-07-26 05:00 | ED_ITS ---
HPI - Skin/Abscess/Foreign Bdy General Chief complaint: Psychiatric Symptoms Stated complaint: Abscess to neck Time Seen by Provider: 07/26/22 05:00 Source: patient Mode of arrival: ambulatory Limitations: no limitations History of Present Illness HPI narrative: Patient's history of IVDA use , used cocaine and heroin shorten her external jugular vein is 1 week ago noticed swelling of the right EJ area for last 3 days with erythema and tenderness with slight drainage Patient also complaining of depression with vague suicidal thoughts with plan to overdose patient denies any fever or chills denied taking her psych medications very sleepy and lethargic when arrived Related Data Previous Rx's Medication Instructions Recorded buspirone 30 mg tablet 30 mg PO BID 30 days #60 tabs 05/06/22 chlorpromazine 100 mg tablet 100 mg PO BEDTIME 30 days #30 tabs 05/06/22 chlorpromazine 50 mg tablet 50 mg PO TID PRN anxiety 30 days 05/06/22 #90 tabs clonidine HCl 0.1 mg tablet 0.1 mg PO BID PRN anxiety 30 days 05/06/22 #60 tabs divalproex 250 mg tablet,extended 750 mg PO BEDTIME 30 days #90 tabs 05/06/22 release 24 hr (Depakote ER) famotidine 20 mg tablet 20 mg PO BID 30 days #60 tabs 05/06/22 fluoxetine 10 mg capsule 30 mg PO DAILY 30 days #90 caps 05/06/22 gabapentin 600 mg tablet 600 mg PO BID 30 days #60 tabs 05/06/22 mirtazapine 7.5 mg tablet 7.5 mg PO BEDTIME 30 days #30 tabs 05/06/22 nicotine 21 mg/24 hr daily 21 mg transdermal DAILY PRN 05/06/22 transdermal patch nicotine cravings 28 days #28 ea prazosin 1 mg capsule 1 mg PO BEDTIME 30 days #30 caps 05/06/22 trazodone 100 mg tablet 100 mg PO BEDTIME PRN insomnia 30 05/06/22 days #30 tabs buprenorphine 8 mg-naloxone 2 mg 1 film sublingual TID #24 ea 05/21/22 sublingual film Allergies Allergy/AdvReac Type Severity Reaction Status Date / Time No Known Allergies Allergy Verified 07/26/22 02:54 Review of Systems Review of Systems: Yes all other systems are reviewed and are negative PMFSH Past Medical History Medical History Alcohol dependence Alcohol use disorder, severe, dependence Alcohol use disorder, severe, dependence Cocaine use Cocaine use disorder Cocaine use disorder JOANN (generalized anxiety disorder) History of hepatitis C MDD (major depressive disorder), recurrent episode, moderate Opiate abuse, continuous Opioid use disorder Opioid use disorder, moderate, dependence Polysubstance abuse Smoker Surgical History S/P laparoscopic appendectomy Social History Social History Household Members: Significant Other Household Members Other:: ex boyfriend Housing: Apartment Housing Other:: Rented a room with ex in an apartment Do you presently have visiting nurse or other home services: No Alcohol intake: current Alcohol intake frequency: 3 or more drinks per day Alcohol type: hard liquor Patient Tobacco Use Status: Current someday Tobacco user Tobacco use type: Cigarette Cigarette Packs Per Day: 0.75 Cigarettes Per Day: 20 Years Smoked: 13 e-Cigarette/Vaping Use: Currently Using Second Hand Smoke Exposure: Yes Substance Use Type: Crack/Cocaine and Heroin Advance Directives: No Advance Directives Information Provided: No service: No Current occupational status: unemployed Sexual orientation: Straight/Heterosexual Physical Exam Vital Signs: Vital Signs: Last Vital Signs Temp 99.6 F 07/26/22 06:23 Pulse 88 07/26/22 06:23 Resp 16 07/26/22 06:23 BP 108/76 07/26/22 06:23 Pulse Ox 94 07/26/22 06:23 O2 Del Method 07/26/22 06:23 BMI result Body Mass Index 23.9 Appearance: Alert. Oriented X3. Sleepy arousable Eyes: PERRLA, No Nystagmus ENT: Pharynx normal. Oral Mucosa moist Neck: Large abscess 5 x 5 cm right IJ area with slight serous drainage, Neck supple. CVS: Normal heart rate and rhythm. Pulses normal. Respiratory: No respiratory distress. Equal air entry bilateral, no wheezing/rales/rhonchi Abdomen: Soft and nontender. Bowel sounds are present, no mass palpable, no CVA tenderness Skin: Skin warm and dry. Normal skin color. Normal skin turgor. Extremities: No lower extremity edema. No calf tenderness IV track march Neuro: Oriented X 3. No motor deficit. No sensory deficit.No cerebellar signs , cranial nerves II-XII intact MDM - Skin/Abscess/Foreign Bdy MDM Narrative Medical decision making narrative: 7 am Patient with large abscess right side of the neck surrounding external jugular vein. CT scan done which showed patent IJ and carotid artery. Will admit patient for IV antibiotics and surgery consultation for I and D Medical Records Attestation: I reviewed the patient's medical records. Lab Data Attestation: I reviewed the patient's lab results. Result diagrams: 07/26/22 03:45 07/26/22 03:45 Labs: Lab Results 07/26/22 07/26/22 07/26/22 Range/Units 03:43 03:45 03:45 WBC 9.9 (4.8-10.8) X10*3/uL RBC 3.52 L (4.20-5.50) X10*6/uL Hgb 10.0 L (12.0-16.0) g/dl Hct 30.5 L (37.0-47.0) % MCV 86.6 (80.0-98.0) fL MCH 28.4 (27.0-33.0) pg MCHC 32.8 (31.0-35.0) g/dl RDW 14.0 (11.0-16.0) % Plt Count 198 (160-400) X10*3/uL MPV 10.0 (9.4-12.3) fL Immature Gran % (Auto) 0.2 (0.0-0.4) % Neut % (Auto) 65.5 (45-73) % Lymph % (Auto) 26.5 (20-40) % [place] % (Auto) 6.1 (2-11) % Eos % (Auto) 1.5 (0-4) % Baso % (Auto) 0.2 (0-2) % Lymph # (Auto) 2.6 (1.2-4.9) X10*3/uL [place] # (Auto) 0.6 (0.1-1.2) X10*3/uL Eos # (Auto) 0.2 (0.0-0.4) X10*3/uL Baso # (Auto) 0.0 (0.0-0.2) X10*3/uL Abs Immat Gran (auto) 0.02 (0.00-0.03) X10*3/uL Absolute Neuts (auto) 6.5 (2.0-8.3) x10*3/uL Absolute Nucleated RBC 0.000 (0.0-0.012) X10*3/uL Nucleated RBC % (auto) 0.0 (0.0-0.2) /100WBC Sodium 135 (135-145) mmol/L Potassium 3.5 (3.3-5.1) mmol/L Chloride 101 (96-108) mmol/L Carbon Dioxide 24 (22-29) mmol/L Anion Gap 14 (12-20) BUN 8 L (9-16) mg/dL Creatinine 0.70 (0.5-1.4) mg/dL Estim Creat Clear Calc 95.4 Estimated GFR > 60 Random Glucose 106 (60-115) mg/dL Lactic Acid 0.7 (0.5-2.0) mmol/L Calcium 8.8 (8.4-10.2) mg/dL Total Bilirubin 0.6 (0.0-1.0) mg/dL AST 40 H (5-31) U/L ALT 47 H (0-31) U/L Alkaline Phosphatase 113 D (39-117) U/L Total Protein 6.2 L (6.5-8.0) g/dL Albumin 3.6 (3.5-5.0) g/dL Salicylates < 5.0 L (15-30) mg/dL Acetaminophen < 1 (<30) mcg/mL Ethyl Alcohol < 10 mg/dL Imaging Data ct neck: Attestation: I personally reviewed and interpreted this imaging study as follows: Radiologist's impression: CT/CT soft tissue neck w con IMPRESSION: Irregularly shaped, peripherally enhancing collection along the posterior aspect of the lower right sternocleidomastoid muscle measuring up to 4.5 cm, consistent with abscess. The nondilated right external jugular vein appears to course through this collection and is not opacified in this segment. Surrounding edema and overlying skin thickening. Discharge Plan Discharge Clinical Impression: Abscess of neck, Opioid use disorder, Cocaine use disorder, Suicidal ideation, Depression Patient Disposition: Admitted As Inpatient
[2022-07-26] MEDS: Piperacillin Sodium/Tazobactam 3.375 GM in 0.9 % Sodium Chloride 50 ML IV ×4 (05:17→23:56)
--- NOTE | 2022-07-26 05:22 | PC.NURSE ---
Zosyn running at this time, will hang vancomycin when zosyn is finished.
[2022-07-26] MEDS: iohexoL 350 MG/ML 100 ML INFUS..BTL 75 ML IV (06:07)
[2022-07-26] MEDS: vancomycin HCL 1,500 MG in 0.9 % Sodium Chloride 500 ML 333.33 MG IV (06:29)
--- NOTE | 2022-07-26 07:45 | PC.NURSE ---
Pt is sleeping at this time. Breathing is even and unlabored. Sitter at the bedside. Will continue to monitor.
--- NOTE | 2022-07-26 09:30 | PHA.PROG ---
Admission Date/Time: Indication: skin Weight in k.3 kg Adjusted body weight in Kg: [place] body weight in Kg: Obesity Dosing Indication % IBW: Serum Creatinine - Last 168 Hours 07/26/22 03:45 Creatinine 0.70 Estimated CrCl and GFR - Last 168 Hours 07/26/22 03:45 Estim Creat Clear Calc 95.4 Estimated GFR > 60 Vancomycin Loading Dose: 1500mg x 1 Current Vancomycin Dosing Regimen: 1000mg Q12H Vancomycin Monitoring using AUC goal of 400 - 600 range with trough as surrogate marker: 468 mg/L Date and Time for next Vancomycin Level to be drawn: 07/27 @1700 Pharmacist Comments on Vancomycin Plan: Will continue to monitor Vancomycin dosing will take advantage of [employer] as a clinical decision support tool that uses Bayesian modeling to calculate individual patient's pharmacokinetic parameters and forecast the patient's drug concentration time course with the target goal AUC 24 range of 400 - 600 mg/L/hr.
[2022-07-26] MEDS: Lidocaine HCl 1 % MPF 2 ML VIAL 6 ML INFILTRATI (09:56)
--- NOTE | 2022-07-26 09:57 | PM.IMHP ---
History of Present Illness Date of Service: 07/26/22 Attending physician on admission: Sean Schaefer Chief Complaint: neck abscess, bipolar/SI Patient with hsitory of bipolar disorder with SI, polysubstance abuse including cocaine/cracak/heroin, IVDA, history of hepatitis C, and tobacco abuse. Patient is aggitated in bed and provides limited history. Majority of history taken from ED provider note and review of chart. She reports injecting heroin and cocaine into her right jugular vein about 1 week ago and abotu 3-4 days ago developed a small pimple on the right side of her neck that has grown in size and is quite painful. There has been no drainage. No fevers, no back pain. She does have history of heavy alcohol use but denies any recent use. She is reporting vague complaints of SI with plan of overdose. She has no other complaints except being tired and wanting to sleep. In the ED, blood pressures slightly lower than baseline at 87/44, repeat 104/58. vitals otherwise stable. No leukocytosis. LFTs mildly elevated AST 40, ALt 47. Tox screen negative for EtOH. Urine tox screen pending. Has received dose of IV vanco and zosyn. Review of Systems Review of Systems: General: +Fatigue. No fevers, malaise, unintentional weight loss Cardiovascular: No chest pain, palpitations, or leg edema Respiratory: No shortness of breath, wheezing, cough GI: No abdominal pain, nausea, vomiting, diarrhea, constipation, melena, hematochezia Neuro: No headaches, weakness, paresthesias Skin: +neck abscess. No rashes or lesions PMFSH Medical History Alcohol dependence Alcohol use disorder, severe, dependence Alcohol use disorder, severe, dependence Cocaine use Cocaine use disorder Cocaine use disorder JOANN (generalized anxiety disorder) History of hepatitis C IV drug abuse MDD (major depressive disorder), recurrent episode, moderate Opiate abuse, continuous Opioid use disorder Opioid use disorder, moderate, dependence Polysubstance abuse Smoker Family History (Updated 07/26/22 @ 10:16 by ANNELIESE De La Cruz) Mother Polysubstance abuse Father Polysubstance abuse Surgical History S/P laparoscopic appendectomy Social History Household Members: Significant Other Household Members Other:: ex boyfriend Housing: Apartment Housing Other:: Rented a room with ex in an apartment Do you presently have visiting nurse or other home services: No Alcohol intake: current Alcohol intake frequency: 3 or more drinks per day Alcohol type: hard liquor Patient Tobacco Use Status: Current someday Tobacco user Tobacco use type: Cigarette Cigarette Packs Per Day: 0.75 Cigarettes Per Day: 20 Years Smoked: 13 e-Cigarette/Vaping Use: Currently Using Second Hand Smoke Exposure: Yes Substance Use Type: Crack/Cocaine and Heroin Advance Directives: No Advance Directives Information Provided: No service: No Current occupational status: unemployed Sexual orientation: Straight/Heterosexual Meds Allergies Allergy/AdvReac Type Severity Reaction Status Date / Time No Known Allergies Allergy Verified 07/26/22 02:54 Active Medications: Current Medications Enoxaparin Sodium (Enoxaparin Sodium 40 Mg/0.4 Ml Syringe) 40 mg SUBCUT Q24H MARISABEL Vancomycin HCl 1,000 mg/ (Sodium Chloride) 270 mls @ 270 mls/hr IV Q12H MARISABEL Piperacillin Sod/Tazobactam (Sod 3.375 gm/ Sodium Chloride) 50 mls @ 100 mls/hr IV Q6H MARISABEL Sodium Chloride (Ns) 1,000 mls @ 999 mls/hr IV .Q1H1M MARISABEL Stop: 07/26/22 11:00 Sodium Chloride (Ns) 1,000 mls @ 100 mls/hr IVCONT .Q10H [facility] Pharmacy Consult (Consult Rx Vancomycin Dosing) 1 each MISCELLANE DAILY PRN PRN Reason: Consult order Pharmacy Consult (Consult Rx Vancomycin Dosing) 1 each MISCELLANE DAILY PRN PRN Reason: Consult order Sodium Chloride (0.9 % Sodium Chloride Flush 3 Ml Syringe) 3 ml IVFLUSH QSHIFT MARISABEL Physical Exam Vital Signs and Narrative: Vital Signs: Last Vital Signs Temp 98.7 F 07/26/22 07:53 Pulse 79 07/26/22 07:53 Resp 17 07/26/22 07:53 BP 86/44 L 07/26/22 07:53 Pulse Ox 97 07/26/22 07:53 O2 Del Method 07/26/22 07:53 BMI result Body Mass Index 23.9 ?? Appearance: Alert.? Oriented X3.? Sleepy arousable Eyes: PERRLA, scant white drainage, no conjunctival injection ENT: Pharynx normal. Oral Mucosa moist Neck:? Large abscess 5 x 5 cm right IJ area with slight serous drainage and induration,? Neck supple. CVS: Normal heart rate and rhythm.? Pulses normal. Respiratory: No respiratory distress.? Equal air entry bilateral,? no wheezing/rales/rhonchi Abdomen: Soft and nontender.? Bowel sounds are present, no mass palpable, no CVA tenderness Skin: Skin warm and dry.? Normal skin color.? Normal skin turgor. Extremities: No lower extremity edema.? No calf tenderness IV track march Neuro: Oriented X 3.? No motor deficit.? No sensory deficit.No cerebellar signs , cranial nerves II-XII intact Results Labs CBC and Chem 7: 07/26/22 03:45 07/26/22 03:45 Labs: Laboratory Results - last 24 hr 07/26/22 07/26/22 07/26/22 03:43 03:45 03:45 MCV 86.6 MCH 28.4 MCHC 32.8 RDW 14.0 Plt Count 198 MPV 10.0 Immature Gran % (Auto) 0.2 Neut % (Auto) 65.5 Lymph % (Auto) 26.5 [place] % (Auto) 6.1 Eos % (Auto) 1.5 Baso % (Auto) 0.2 Lymph # (Auto) 2.6 [place] # (Auto) 0.6 Eos # (Auto) 0.2 Baso # (Auto) 0.0 Abs Immat Gran (auto) 0.02 Absolute Neuts (auto) 6.5 Absolute Nucleated RBC 0.000 Nucleated RBC % (auto) 0.0 Anion Gap 14 Estim Creat Clear Calc 95.4 Estimated GFR > 60 Random Glucose 106 Lactic Acid 0.7 Calcium 8.8 Total Bilirubin 0.6 AST 40 H ALT 47 H Alkaline Phosphatase 113 D Total Protein 6.2 L Albumin 3.6 Salicylates < 5.0 L Acetaminophen < 1 Ethyl Alcohol < 10 Imaging Radiologist's Impressions: Impressions Soft Tissue Neck CT 07/26/22 06:05 IMPRESSION: Irregularly shaped, peripherally enhancing collection along the posterior aspect of the lower right sternocleidomastoid muscle measuring up to 4.5 cm, consistent with abscess. The nondilated right external jugular vein appears to course through this collection and is not opacified in this segment. Surrounding edema and overlying skin thickening. Assessment and Plan (1) Abscess of neck: Status: Acute (2) Bipolar 2 disorder: Status: Acute (3) Polysubstance abuse: Status: Acute (4) IV drug abuse: Status: Acute Plan Patient with history of bipolar disorder with SI, polysubstance abuse including cocaine/cracak/heroin, IVDA, history of hepatitis C, and tobacco abuse admitted to the hospital for neck abscess secondary to IV drug abuse. 1- Neck abscess- secondary to IV drug use into the jugular vein about 1 week ago -Scant spontaneous drainage with significant induration. General surgery consulted for I&D -Continue IV zosyn and vancomycin -No leukocytosis. Blood pressure improved to 104/58 on recheck. IV fluid bolus given and continue NS. No sepsis. Blood cultures pending 2-Bipolar disorder/SI -Will need admission to psych once medically cleared -reporting vague complaints of desire to overdose -Continue home meds -1:1 sitter 3-Polysubstance abuse/IVDA -Continue suboxone -Addiction medicine consult placed 4-Cigarette smoker -NRT patch 5-History hepatitis c- patient denies having had treatment -LFTs only mildly elevated -Refer for outpatient treatment of hep c DVT prophylaxis: lovenox Full code Patient requires inpatient stay of at least 2 midnights due to neck abscess requiring surgical I&D with IV antibiotics at risk for MRSA. Quality Stroke Does the patient have a stroke diagnosis?: No VTE Prior VTE?: No VTE Risk Level:: Medical - moderate - high VTE Device Contraindication: Treatment Not Indicated VTE Drug Contraindication: N/A - Med Ordered
[2022-07-26] MEDS: 0.9 % Sodium Chloride 1,000 ML 999 ML IV (10:08)
--- NOTE | 2022-07-26 10:43 | PM.EVENT ---
Event Note Date of Service: 07/26/22 Event Note: Attending Attestation: I have personally seen and examined the patient independently (on the date of service as documented by LUIS), reviewed the LUIS history, exam and?MDM and agree with the assessment and plan as?written in their H&P. In brief, a 32 yo F with active IVDU, reportedly injected into the neck [address] showing abscess in the neck. Will be admitted with surgical consult. Will need to rule out bactermia. Additionally -- her BP of 86/44 @ 753 AM is due to a false reading. Repeat BP is 104/58 without any intervention. She does not have evidence of sepsis/severe sepsis/septic shock at this time.
--- NOTE | 2022-07-26 11:25 | PHA.MEDREC ---
MED REC BASED ON PATIENTS PREVIOUS DISCHARGE FROM . Patient was sleeping and not answering questons. Compliance with meds is unclear, should have run out and needed refills before now. Pharmacy Consult ? Medication Reconciliation Pharmacy has completed the medication reconciliation.
[2022-07-26] MEDS: 0.9 % Sodium Chloride 1,000 ML 100 ML IVCONT ×2 (11:33→19:57)
--- NOTE | 2022-07-26 12:09 | PC.NURSE ---
Per julien COY verbal orders s/p bedside eval: Plan at this time is to increase IVF to 150ml/hr, Notification parameters include: BP less than 90/50 or MAP less than 65
--- NOTE | 2022-07-26 12:11 | PC.NURSE ---
[place] text order via Nicole OCY, Open fluid to wide open 2ndary to HoTn.
--- NOTE | 2022-07-26 12:19 | PC.NURSE ---
Verbal order clarification: Per Jamila COY, Start IVF NS bolus, but continue base rate of NS @ 100ml/hr
[2022-07-26] MEDS: 0.9 % Sodium Chloride 1,000 ML 999 ML IVCONT (12:21)
[2022-07-26 12:47] LABS: COVID-19 Test Negative (Negative)
--- NOTE | 2022-07-26 12:52 | PC.NURSE ---
DR. BERMAN TO BEDSIDE TO DRAIN ABSCESS.
--- NOTE | 2022-07-26 13:49 | PM.CNGS ---
History of Present Illness Consult details Consult date: 07/26/22 Narrative: 32-year-old female with known history of IV drug abuse referred to me by the ED because of an abscess on the right neck. She has an area of swelling and pain on the right side of the neck. She admits that this is one of the access sites that she uses for IV drug use. She had a CAT scan showing an abscess 3.5 cm in widest dimension near the sternocleidomastoid. Review of Systems Constitutional: Constitutional: Denies chills and Denies fever(s) Cardiovascular: Cardiovascular: Denies chest pain Respiratory: Respiratory: Denies cough Gastrointestinal: Gastrointestinal: Denies abdominal pain Genitourinary: Genitourinary: Denies hematuria Musculoskeletal: Musculoskeletal: Denies myalgias Neurologic: Denies behavioral changes Psychiatric: Psychiatric: Denies behavioral changes PMF Past Medical History Medical History Alcohol dependence Alcohol use disorder, severe, dependence Alcohol use disorder, severe, dependence Cocaine use Cocaine use disorder Cocaine use disorder JOANN (generalized anxiety disorder) History of hepatitis C IV drug abuse MDD (major depressive disorder), recurrent episode, moderate Opiate abuse, continuous Opioid use disorder Opioid use disorder, moderate, dependence Polysubstance abuse Smoker Family History Family History Mother Polysubstance abuse Father Polysubstance abuse Surgical History Surgical History S/P laparoscopic appendectomy Social History Social History Household Members: Significant Other Household Members Other:: ex boyfriend Housing: Apartment Housing Other:: Rented a room with ex in an apartment Do you presently have visiting nurse or other home services: No Alcohol intake: current Alcohol intake frequency: 3 or more drinks per day Alcohol type: hard liquor Patient Tobacco Use Status: Current everyday Tobacco user Tobacco use type: Cigarette Cigarette Packs Per Day: 0.75 Cigarettes Per Day: 20 Years Smoked: 13 e-Cigarette/Vaping Use: Currently Using Second Hand Smoke Exposure: Yes Substance Use Type: Crack/Cocaine and Heroin service: No Current occupational status: unemployed Sexual orientation: Straight/Heterosexual Meds Allergies Allergy/AdvReac Type Severity Reaction Status Date / Time No Known Allergies Allergy Verified 07/26/22 02:54 Active Medications: Current Medications Buprenorphine/Naloxone (Buprenorphine/Naloxone 8/2 Mg Film) 1 film SUBLINGUAL TID [facility] Buspirone HCl (Buspirone Hcl 10 Mg Tablet) 30 mg PO BID [facility] Chlorpromazine HCl (Chlorpromazine Hcl 25 Mg Tablet) 50 mg PO TID PRN PRN Reason: anxiety Chlorpromazine HCl (Chlorpromazine Hcl 100 Mg Tablet) 100 mg PO BEDTIME [facility] Clonidine HCl (Clonidine Hcl 0.1 Mg Tablet) 0.1 mg PO BID PRN; Protocol PRN Reason: anxiety Divalproex Sodium (Divalproex Sodium Er 250 Mg Tab.Er.24h) 750 mg PO BEDTIME [facility] Enoxaparin Sodium (Enoxaparin Sodium 40 Mg/0.4 Ml Syringe) 40 mg SUBCUT Q24H [facility] Last Admin: 07/26/22 11:37 Dose: Not Given Famotidine (Famotidine 20 Mg Tablet) 20 mg PO BID [facility] Fluoxetine HCl (Fluoxetine Hcl 10 Mg Capsule) 30 mg PO DAILY [facility] Gabapentin (Gabapentin 600 Mg Tablet) 600 mg PO BID [facility] Vancomycin HCl 1,000 mg/ (Sodium Chloride) 270 mls @ 270 mls/hr IV Q12H [facility] Piperacillin Sod/Tazobactam (Sod 3.375 gm/ Sodium Chloride) 50 mls @ 100 mls/hr IV Q6H [facility] Last Infusion: 07/26/22 12:20 Dose: Infused Sodium Chloride (Ns) 1,000 mls @ 100 mls/hr IVCONT .Q10H [facility] Last Admin: 07/26/22 11:33 Dose: 100 mls/hr Mirtazapine (Mirtazapine 7.5 Mg Tablet) 7.5 mg PO BEDTIME [facility] Nicotine (Nicotine 21 Mg Patch.Td24) 21 mg TRANSDERMA DAILY PRN PRN Reason: nicotine cravings Pharmacy Consult (Consult Rx Vancomycin Dosing) 1 each MISCELLANE DAILY PRN PRN Reason: Consult order Pharmacy Consult (Consult Rx Vancomycin Dosing) 1 each MISCELLANE DAILY PRN PRN Reason: Consult order Pharmacy Consult (Consult Rx Perform Med Rec) 1 each MISCELLANE ONCE PRN PRN Reason: Consult order Prazosin HCl (Prazosin Hcl 1 Mg Capsule) 1 mg PO BEDTIME [facility]; Protocol Sodium Chloride (0.9 % Sodium Chloride Flush 3 Ml Syringe) 3 ml IVFLUSH QSHIFT [facility] Trazodone HCl (Trazodone Hcl 100 Mg Tablet) 100 mg PO BEDTIME PRN PRN Reason: insomnia Physical Exam Vital Signs: Vital Signs: Last Vital Signs Temp 98.1 F 07/26/22 11:38 Pulse 83 07/26/22 11:38 Resp 18 07/26/22 11:38 BP 97/40 L 07/26/22 11:57 Pulse Ox 95 07/26/22 11:38 O2 Del Method 07/26/22 11:38 BMI result Body Mass Index 23.9 Const: General: comfortable and no acute distress Orientation/consciousness: patient oriented x3 HEENT: Other: On the right neck is an area of induration, with draining sinus in the middle. The induration is about 4 cm in diameter, tender with cellulitic changes; this is right near the sternocleidomastoid going more laterally Neck: Neck: Yes no lymphadenopathy Resp: Auscultation: clear to auscultation bilaterally Cardio: Rhythm: regular rhythm GI: Palpation (GI): Soft to palpation, nontender and no guarding Neuro: General: patient oriented x3 Results Labs Result diagrams: 07/28/22 07:55 07/29/22 08:57 Labs: Abnormal lab results 07/26/22 07/26/22 Range/Units 03:45 03:45 RBC 3.52 L (4.20-5.50) X10*6/uL Hgb 10.0 L (12.0-16.0) g/dl Hct 30.5 L (37.0-47.0) % BUN 8 L (9-16) mg/dL AST 40 H (5-31) U/L ALT 47 H (0-31) U/L Total Protein 6.2 L (6.5-8.0) g/dL Salicylates < 5.0 L (15-30) mg/dL Short CBC 07/26/22 Range/Units 03:45 WBC 9.9 (4.8-10.8) X10*3/uL Hgb 10.0 L (12.0-16.0) g/dl Hct 30.5 L (37.0-47.0) % Plt Count 198 (160-400) X10*3/uL BMP 07/26/22 03:45 Sodium 135 Potassium 3.5 Chloride 101 Carbon Dioxide 24 BUN 8 L Creatinine 0.70 Calcium 8.8 Liver Function 07/26/22 Range/Units 03:45 Total Bilirubin 0.6 (0.0-1.0) mg/dL AST 40 H (5-31) U/L ALT 47 H (0-31) U/L Alkaline Phosphatase 113 D (39-117) U/L Albumin 3.6 (3.5-5.0) g/dL All other labs normal. Imaging Additional studies: Laboratory Results WBC 9.9 X10*3/uL (4.8-10.8) 07/26/22 03:45 RBC 3.52 X10*6/uL (4.20-5.50) L 07/26/22 03:45 Hgb 10.0 g/dl (12.0-16.0) L 07/26/22 03:45 Hct 30.5 % (37.0-47.0) L 07/26/22 03:45 MCV 86.6 fL (80.0-98.0) 07/26/22 03:45 MCH 28.4 pg (27.0-33.0) 07/26/22 03:45 MCHC 32.8 g/dl (31.0-35.0) 07/26/22 03:45 RDW 14.0 % (11.0-16.0) 07/26/22 03:45 Plt Count 198 X10*3/uL (160-400) 07/26/22 03:45 MPV 10.0 fL (9.4-12.3) 07/26/22 03:45 Immature Gran % (Auto) 0.2 % (0.0-0.4) 07/26/22 03:45 Neut % (Auto) 65.5 % (45-73) 07/26/22 03:45 Lymph % (Auto) 26.5 % (20-40) 07/26/22 03:45 Murray % (Auto) 6.1 % (2-11) 07/26/22 03:45 Eos % (Auto) 1.5 % (0-4) 07/26/22 03:45 Baso % (Auto) 0.2 % (0-2) 07/26/22 03:45 Lymph # (Auto) 2.6 X10*3/uL (1.2-4.9) 07/26/22 03:45 Murray # (Auto) 0.6 X10*3/uL (0.1-1.2) 07/26/22 03:45 Eos # (Auto) 0.2 X10*3/uL (0.0-0.4) 07/26/22 03:45 Baso # (Auto) 0.0 X10*3/uL (0.0-0.2) 07/26/22 03:45 Abs Immat Gran (auto) 0.02 X10*3/uL (0.00-0.03) 07/26/22 03:45 Absolute Neuts (auto) 6.5 x10*3/uL (2.0-8.3) 07/26/22 03:45 Absolute Nucleated RBC 0.000 X10*3/uL (0.0-0.012) 07/26/22 03:45 Nucleated RBC % (auto) 0.0 /100WBC (0.0-0.2) 07/26/22 03:45 Sodium 135 mmol/L (135-145) 07/26/22 03:45 Potassium 3.5 mmol/L (3.3-5.1) 07/26/22 03:45 Chloride 101 mmol/L (96-108) 07/26/22 03:45 Carbon Dioxide 24 mmol/L (22-29) 07/26/22 03:45 Anion Gap 14 (12-20) 07/26/22 03:45 BUN 8 mg/dL (9-16) L 07/26/22 03:45 Creatinine 0.70 mg/dL (0.5-1.4) 07/26/22 03:45 Estim Creat Clear Calc 95.4 07/26/22 03:45 Estimated GFR > 60 07/26/22 03:45 Random Glucose 106 mg/dL (60-115) 07/26/22 03:45 Lactic Acid 0.7 mmol/L (0.5-2.0) 07/26/22 03:43 Calcium 8.8 mg/dL (8.4-10.2) 07/26/22 03:45 Total Bilirubin 0.6 mg/dL (0.0-1.0) 07/26/22 03:45 AST 40 U/L (5-31) H 07/26/22 03:45 ALT 47 U/L (0-31) H 07/26/22 03:45 Alkaline Phosphatase 113 U/L (39-117) D 07/26/22 03:45 Total Protein 6.2 g/dL (6.5-8.0) L 07/26/22 03:45 Albumin 3.6 g/dL (3.5-5.0) 07/26/22 03:45 Salicylates < 5.0 mg/dL (15-30) L 07/26/22 03:45 Acetaminophen < 1 mcg/mL (<30) 07/26/22 03:45 Ethyl Alcohol < 10 mg/dL 07/26/22 03:45 COVID-19 ([facility]) Negative (Negative) 07/26/22 12:03 COVID-19 Clin Com See Note 07/26/22 12:03 Impressions Soft Tissue Neck CT 07/26/22 06:05 IMPRESSION: Irregularly shaped, peripherally enhancing collection along the posterior aspect of the lower right sternocleidomastoid muscle measuring up to 4.5 cm, consistent with abscess. The nondilated right external jugular vein appears to course through this collection and is not opacified in this segment. Surrounding edema and overlying skin thickening. Assessment and Plan (1) Abscess of neck: Status: Acute She has an abscess on the right neck as described above, likely due to an infected the site for her IV drug abuse I had a long discussion with her about the need to do an I and D. I explained to her the technique of this procedure under local anesthesia at bedside. I reviewed the risks including but not limited to bleeding, further infections, injury to the vessels, as well as benefits and alternatives. She had given verbal consent Her head was turned to the left expose the area of the abscess. This area was prepped with Betadine. Lidocaine 1% was used for local anesthesia. Made an incision on the skin on the area of induration using blade 11. And this was carried down through the full-thickness of the skin until we entered an abscess cavity. Immediately, large amounts of pus was drained. This was yellow green in color. Cultures were taken. I continued to express as much pus by pressing the very of this induration. Once I felt that the cavity was drained adequately, I applied dressings. The patient tolerated procedure well. There were no complications noted. She has been started on IV biotics. The culture should be followed. Dry dressing changes should be done daily. Procedures Date of Service Date of Service: 07/26/22
--- NOTE | 2022-07-26 13:55 | W.PM.OPN ---
Operative Note Operative Note Date of Service: 07/26/22 Narrative: Procedure done at bedside under local anesthesia Procedure: I and D of a right neck abscess Preop diagnosis: right technique abscess Postop diagnosis: right neck abscess Surgeon: Terence Garcia MD Verbal consent had been given by the patient. I had reviewed with her the technique of the planned procedure as well as the risks, benefits, and alternatives She was in supine position on the stretcher. Her head was turned to the left. The area of the abscess was prepped and draped. Lidocaine 1% was used for local anesthesia. I then used the blade 11 to make a short incision on the skin overlying the induration and this was carried down until an abscess cavity was entered. Large amounts of pus was visualized. I drained as much of the cavity by pressing on the periphery of the induration. I applied dry dressings. She tolerated the procedure well. There were no complications noted. There was minimal blood loss.
--- NOTE | 2022-07-26 14:16 | MHC.RECOVRN ---
Briefly met with pt in ED19 after consult placed to Addiction Medicine. Pt in bed asleep but easily wakes to voice. Pt is not currently taking or prescribed Suboxone, states I use heroin. Pt would like to use MOUD while here for withdrawal symptoms, however, declines medication at this time. Pt does not wish to discuss further and asks t/w to follow up later. Discussed with Santa Alcaraz APRN.
--- NOTE | 2022-07-26 14:44 | P.EN_ITS ---
Event Note Date of Service: 07/26/22 Event Note: Patient seen by RSRN. Unwilling to engage in interview, however did verify that she has not been taking suboxone, but using heroin. Patient known to this technical report writer and the [facility] via previous admissions and outpatient treatment as well. Plan: -d/c suboxone (due to risk of precipitated withdrawal) -methadone 15mg PRN q 4 hrs, max of 3 doses for opioid withdrawal--monitor for oversedation and respiratory depression -this technical report writer will follow up in AM to determine ongoing plan for OUD
--- NOTE | 2022-07-26 16:59 | MHC.CM.PN ---
Attempted to meet with admitted patient with bed assignment pending. Pt has 1:1 sitter. Extensive mental health and polysubstance abuse. Had bedside I&D of abscess in Right neck by Dr. Garcia. Pt sleeping soundly. Will not wake for CM assessment. Will attempt to complete assessment for D/C planning when pt wakes.
[2022-07-26] MEDS: chlorproMAZINE HCl 100 MG TABLET PO (19:51)
[2022-07-26] MEDS: Prazosin HCL 1 MG CAPSULE PO (19:53)
[2022-07-26] MEDS: Mirtazapine 7.5 MG TABLET PO (19:54)
[2022-07-26] MEDS: Divalproex Sodium ER 250 MG TAB.ER.24H 750 MG PO (19:54)
[2022-07-26] MEDS: Famotidine 20 MG TABLET PO (19:55)
[2022-07-26] MEDS: Gabapentin 600 MG TABLET PO (19:55)
[2022-07-26] MEDS: busPIRone HCl 10 MG TABLET 30 MG PO (19:56)
[2022-07-26] MEDS: vancomycin HCL 1,000 MG in 0.9 % Sodium Chloride 250 ML 270 MG IV (19:58)
--- NOTE | 2022-07-26 21:59 | MHC.CM.PN ---
Pt continues to sleep with blankets over head. 1:[address] CM will not wake patient for discharge planning. Will try to met to discuss d/c planning when awake. Pt will have psych evaluation when medically cleared.
--- NOTE | 2022-07-26 23:25 | PC.NURSE ---
Pt sleeping, chest rise and fall observed, sitter at bedside, safety maintained, this RN continues to monitor.
[2022-07-27] VITALS: BP 109/52; PULSE 75; RESP 16; TEMP 36.8; O2SAT 98
--- NOTE | 2022-07-27 03:41 | PC.NURSE ---
Pt sleeping, chest rise and fall observed, sitter at bedside, safety maintained, this RN continues to monitor.
[2022-07-27] MEDS: Piperacillin Sodium/Tazobactam 3.375 GM in 0.9 % Sodium Chloride 50 ML IV ×4 (05:50→23:26)
[2022-07-27] MEDS: 0.9 % Sodium Chloride 1,000 ML 100 ML IVCONT ×2 (05:50→14:04)
[2022-07-27 06:50] LABS: Creatinine Clr Calc Pharmacy 113.2; Estimated Glomerular Filt Rate > 60
[2022-07-27] MEDS: vancomycin HCL 1,000 MG in 0.9 % Sodium Chloride 250 ML 270 MG IV (07:39)
--- NOTE | 2022-07-27 08:23 | PC.NURSE ---
THIS RN ASSUMED CARE OF THIS PT AT 0700. PT SLEEPING AT THE TIME OF ASSUMING CARE. NS RUNNING AT 100 ML/HR. VANCOMYCIN STARTED. 1:1 SITTER AT PT'S BEDSIDE.
--- NOTE | 2022-07-27 08:24 | HE.PHANOTE ---
Vancomycin Dosing Addendum Vancomycin Trough scheduled for 07/27/22 @1700. Continue with current regimen for now.
[2022-07-27] MEDS: busPIRone HCl 10 MG TABLET 30 MG PO ×2 (10:06→21:02)
[2022-07-27] MEDS: Gabapentin 600 MG TABLET PO ×2 (10:07→21:03)
[2022-07-27] MEDS: FLUoxetine HCl 10 MG CAPSULE 30 MG PO (10:07)
[2022-07-27] MEDS: Famotidine 20 MG TABLET PO ×2 (10:08→20:56)
[2022-07-27] MEDS: Enoxaparin Sodium 40 MG/0.4 ML SYRINGE SUBCUT (10:08)
--- NOTE | 2022-07-27 10:22 | P.PNIM_ITS ---
Subjective Subjective Date of Service: 07/27/22 Interval History: abscess drained @ bedside yesterday no pain, no fever methadone started Review of Systems Review of Systems: Yes all other systems are reviewed and are negative Physical Exam Vital Signs: Vital Signs: Last Vital Signs Temp 98.3 F 07/27/22 00:00 Pulse 75 07/27/22 00:00 Resp 16 07/27/22 00:00 BP 109/52 L 07/27/22 00:00 Pulse Ox 98 07/27/22 00:00 O2 Del Method 07/27/22 00:00 BMI result Body Mass Index 23.9 Gen: in no acute distress HEENT: sclera anicteric, moist mucus membranes Neck: R SCM area with drained abscess cavity, residual induration with minimal erythema, no fluctuance Lungs: clear to auscultation bilaterally Heart: regular rate and rhythm, no murmurs Abd: soft, non-tender, non-distended Ext: no edema Skin: warm/well-perfused Neuro: alert and oriented x3, no focal findings Psych: restricted affect Objective Data Active Medications Buspirone HCl (Buspirone Hcl 10 Mg Tablet) 30 mg PO BID [facility] Last Admin: 07/27/22 10:06 Dose: 30 mg Documented By: SARAH Chlorpromazine HCl (Chlorpromazine Hcl 25 Mg Tablet) 50 mg PO TID PRN PRN Reason: anxiety Chlorpromazine HCl (Chlorpromazine Hcl 100 Mg Tablet) 100 mg PO BEDTIME [facility] Last Admin: 07/26/22 19:51 Dose: 100 mg Documented By: KATHARINA Clonidine HCl (Clonidine Hcl 0.1 Mg Tablet) 0.1 mg PO BID PRN; Protocol PRN Reason: anxiety Divalproex Sodium (Divalproex Sodium Er 250 Mg Tab.Er.24h) 750 mg PO BEDTIME [facility] Last Admin: 07/26/22 19:54 Dose: 750 mg Documented By: KATHARINA Enoxaparin Sodium (Enoxaparin Sodium 40 Mg/0.4 Ml Syringe) 40 mg SUBCUT Q24H [facility] Last Admin: 07/27/22 10:08 Dose: 40 mg Documented By: SARAH Famotidine (Famotidine 20 Mg Tablet) 20 mg PO BID [facility] Last Admin: 07/27/22 10:08 Dose: 20 mg Documented By: SARAH Fluoxetine HCl (Fluoxetine Hcl 10 Mg Capsule) 30 mg PO DAILY [facility] Last Admin: 07/27/22 10:07 Dose: 30 mg Documented By: SARAH Gabapentin (Gabapentin 600 Mg Tablet) 600 mg PO BID [facility] Last Admin: 07/27/22 10:07 Dose: 600 mg Documented By: SARAH Vancomycin HCl 1,000 mg/ (Sodium Chloride) 270 mls @ 270 mls/hr IV Q12H [facility] Last Infusion: 07/27/22 09:20 Dose: 0 mls/hr Documented By: SARAH Piperacillin Sod/Tazobactam (Sod 3.375 gm/ Sodium Chloride) 50 mls @ 100 mls/hr IV Q6H [facility] Last Infusion: 07/27/22 08:23 Dose: 0 mls/hr Documented By: SARAH Sodium Chloride (Ns) 1,000 mls @ 100 mls/hr IVCONT .Q10H [facility] Last Admin: 07/27/22 05:50 Dose: 100 mls/hr Documented By: VERONICA Methadone HCl (Methadone Hcl 20 Mg/2 Ml Oral.Conc) 15 mg PO Q4H PRN PRN Reason: Opiate Withdrawal Mirtazapine (Mirtazapine 7.5 Mg Tablet) 7.5 mg PO BEDTIME [facility] Last Admin: 07/26/22 19:54 Dose: 7.5 mg Documented By: KATHARINA Nicotine (Nicotine 21 Mg Patch.Td24) 21 mg TRANSDERMA DAILY PRN PRN Reason: nicotine cravings Pharmacy Consult (Consult Rx Vancomycin Dosing) 1 each MISCELLANE DAILY PRN PRN Reason: Consult order Pharmacy Consult (Consult Rx Vancomycin Dosing) 1 each MISCELLANE DAILY PRN PRN Reason: Consult order Pharmacy Consult (Consult Rx Perform Med Rec) 1 each MISCELLANE ONCE PRN PRN Reason: Consult order Prazosin HCl (Prazosin Hcl 1 Mg Capsule) 1 mg PO BEDTIME [facility]; Protocol Last Admin: 07/26/22 19:53 Dose: 1 mg Documented By: KATHARINA Comments: 125/59 Sodium Chloride (0.9 % Sodium Chloride Flush 3 Ml Syringe) 3 ml IVFLUSH QSHIFT [facility] Last Admin: 07/27/22 08:23 Dose: Not Given Documented By: SARAH Non-Admin Reason: IV Running Trazodone HCl (Trazodone Hcl 100 Mg Tablet) 100 mg PO BEDTIME PRN PRN Reason: insomnia Labs CBC & Chem 7: 07/26/22 03:45 07/27/22 06:15 Labs: Laboratory Results - last 24 hr 07/26/22 07/27/22 12:03 06:15 Estim Creat Clear Calc 113.2 Estimated GFR > 60 COVID-19 ([facility]) Negative COVID-19 Clin Com See Note Microbiology Microbiology Results: Microbiology 07/26/22 03:54 Blood Culture - Preliminary Blood - Venous No growth after 24 hours. 07/26/22 03:43 Blood Culture - Preliminary Blood - Venous No growth after 24 hours. 07/26/22 13:00 Gram Stain - Final Neck Assessment and Plan (1) Abscess of neck: Status: Acute Plan hospital d#2 32yo F with bipolar disorder, polysubstance injection abuse [cocaine, heroin] admitted for neck abscess at injection site # neck abscess - I+D done 07/26/22, follow wound Cx + BCx - d#2 pip/yusra + vanco # bipolar disorder with SI - sitter, psych evaluation when medically clear - continue valproate, buspirone, mirtazapine, fluoxetine, gabapentin, chlorpromazine, clonidine, trazodone # OUD # cocaine abuse - Addiction Medicine consulted, methadone started # tobacco abuse - NRT # VTE ppx: LMWH In my clinical judgment, the patient requires continued hospitalization for the following reasons: IV ABX, psych hold Quality Stroke Does the patient have a stroke diagnosis?: No VTE Prior VTE?: No VTE Risk Level:: Medical - moderate - high VTE Device Contraindication: Treatment Not Indicated VTE Drug Contraindication: N/A - Med Ordered
--- NOTE | 2022-07-27 10:57 | PC.NURSE ---
Report given to RICCARDO Sarmientotraining and development officer with [facility]. Pt will be transferred to room 357, pt aware of plan.
[2022-07-27 11:46] VITALS: BP 93/54; PULSE 80; RESP 15; TEMP 36.3; O2SAT 97
[2022-07-27] MEDS: methADONE HCl 20 MG/2 ML ORAL.CONC PO (14:04)
[2022-07-27 15:43] VITALS: BP 113/58; PULSE 65; RESP 15; TEMP 36.4; O2SAT 98
[2022-07-27] MEDS: cloNIDine HCL 0.1 MG TABLET PO (16:14)
[2022-07-27] MEDS: chlorproMAZINE HCl 25 MG TABLET 50 MG PO (16:14)
[2022-07-27] MEDS: Morphine Sulfate 2 MG/ML CARTRIDGE 4 MG IVPUSH ×2 (16:45→20:55)
[2022-07-27] MEDS: methADONE HCl 20 MG/2 ML ORAL.CONC 5 MG PO (16:56)
[2022-07-27 18:11] LABS: Vancomycin Trough 6.6 mcg/mL (10.0-20.0)
[2022-07-27 19:32] VITALS: BP 97/58; PULSE 66; RESP 15; TEMP 36.8; O2SAT 98
--- NOTE | 2022-07-27 20:36 | HO.ADDICTPRO ---
Subjective Subjective Date of Service: 07/27/22 Reason For Visit: Psychosis Interim History: Patient seen in follow up. Awake, alert, and engaged in interview. Patient reports using approx 2 bundles of heroin daily, along with cocaine. Reporting chills, body aches and anxiety. Would like methadone to address withdrawal symptoms. Review of Systems Constitutional: Reports as per HPI Mental Status Exam Mental Status Exam Patient Appearance: Appropriate Level of Consciousness: Awake and Appropriate Patient Behavior: Appropriate and Cooperative Mood Description: Anxious Diagnostics Vital Signs (24Hr): Vital Signs - 24 hr 07/27/22 00:00 07/27/22 11:46 07/27/22 15:43 Temperature 98.3 F 97.3 F 97.6 F Pulse Rate 75 80 65 Respiratory Rate 16 15 15 Blood Pressure 109/52 L 93/54 L 113/58 L Pulse Oximetry 98 97 98 Oxygen Delivery Method Room Air Room Air Room Air 07/27/22 19:32 Temperature 98.2 F Pulse Rate 66 Respiratory Rate 15 Blood Pressure 97/58 L Pulse Oximetry 98 Oxygen Delivery Method Room Air BMI result Body Mass Index 23.9 Labs Results: 07/26/22 03:45 07/27/22 06:15 Labs: Laboratory Results - last 48 hr 07/26/22 07/26/22 07/26/22 03:43 03:45 03:45 WBC 9.9 RBC 3.52 L Hgb 10.0 L Hct 30.5 L MCV 86.6 MCH 28.4 MCHC 32.8 RDW 14.0 Plt Count 198 MPV 10.0 Immature Gran % (Auto) 0.2 Neut % (Auto) 65.5 Lymph % (Auto) 26.5 [place] % (Auto) 6.1 Eos % (Auto) 1.5 Baso % (Auto) 0.2 Lymph # (Auto) 2.6 [place] # (Auto) 0.6 Eos # (Auto) 0.2 Baso # (Auto) 0.0 Abs Immat Gran (auto) 0.02 Absolute Neuts (auto) 6.5 Absolute Nucleated RBC 0.000 Nucleated RBC % (auto) 0.0 Sodium 135 Potassium 3.5 Chloride 101 Carbon Dioxide 24 Anion Gap 14 BUN 8 L Creatinine 0.70 Estim Creat Clear Calc 95.4 Estimated GFR > 60 Random Glucose 106 Lactic Acid 0.7 Calcium 8.8 Total Bilirubin 0.6 AST 40 H ALT 47 H Alkaline Phosphatase 113 D Total Protein 6.2 L Albumin 3.6 Vancomycin Trough Salicylates < 5.0 L Acetaminophen < 1 Ethyl Alcohol < 10 COVID-19 ([facility]) COVID-19 Clin Com 07/26/22 07/27/22 07/27/22 12:03 06:15 17:40 WBC RBC Hgb Hct MCV MCH MCHC RDW Plt Count MPV Immature Gran % (Auto) Neut % (Auto) Lymph % (Auto) [place] % (Auto) Eos % (Auto) Baso % (Auto) Lymph # (Auto) [place] # (Auto) Eos # (Auto) Baso # (Auto) Abs Immat Gran (auto) Absolute Neuts (auto) Absolute Nucleated RBC Nucleated RBC % (auto) Sodium Potassium Chloride Carbon Dioxide Anion Gap BUN Creatinine 0.59 Estim Creat Clear Calc 113.2 Estimated GFR > 60 Random Glucose Lactic Acid Calcium Total Bilirubin AST ALT Alkaline Phosphatase Total Protein Albumin Vancomycin Trough 6.6 L Salicylates Acetaminophen Ethyl Alcohol COVID-19 ([facility]) Negative COVID-19 Clin Com See Note Imaging Radiology Impressions: ITS Impressions Soft Tissue Neck CT 07/26/22 06:05 IMPRESSION: Irregularly shaped, peripherally enhancing collection along the posterior aspect of the lower right sternocleidomastoid muscle measuring up to 4.5 cm, consistent with abscess. The nondilated right external jugular vein appears to course through this collection and is not opacified in this segment. Surrounding edema and overlying skin thickening. Medications Medications Current Medications Buspirone HCl (Buspirone Hcl 10 Mg Tablet) 30 mg PO BID MARISABEL Last Admin: 07/27/22 10:06 Dose: 30 mg Chlorpromazine HCl (Chlorpromazine Hcl 25 Mg Tablet) 50 mg PO TID PRN PRN Reason: anxiety Last Admin: 07/27/22 16:14 Dose: 50 mg Chlorpromazine HCl (Chlorpromazine Hcl 100 Mg Tablet) 100 mg PO BEDTIME MARISABEL Last Admin: 07/26/22 19:51 Dose: 100 mg Clonidine HCl (Clonidine Hcl 0.1 Mg Tablet) 0.1 mg PO BID PRN; Protocol PRN Reason: anxiety Last Admin: 07/27/22 16:14 Dose: 0.1 mg Divalproex Sodium (Divalproex Sodium Er 250 Mg Tab.Er.24h) 750 mg PO BEDTIME MARISABEL Last Admin: 07/26/22 19:54 Dose: 750 mg Enoxaparin Sodium (Enoxaparin Sodium 40 Mg/0.4 Ml Syringe) 40 mg SUBCUT Q24H [facility] Last Admin: 07/27/22 10:08 Dose: 40 mg Famotidine (Famotidine 20 Mg Tablet) 20 mg PO BID [facility] Last Admin: 07/27/22 10:08 Dose: 20 mg Fluoxetine HCl (Fluoxetine Hcl 10 Mg Capsule) 30 mg PO DAILY [facility] Last Admin: 07/27/22 10:07 Dose: 30 mg Gabapentin (Gabapentin 600 Mg Tablet) 600 mg PO BID [facility] Last Admin: 07/27/22 10:07 Dose: 600 mg Piperacillin Sod/Tazobactam (Sod 3.375 gm/ Sodium Chloride) 50 mls @ 100 mls/hr IV Q6H [facility] Last Infusion: 07/27/22 17:29 Dose: Infused Sodium Chloride (Ns) 1,000 mls @ 100 mls/hr IVCONT .Q10H [facility] Last Admin: 07/27/22 14:04 Dose: 100 mls/hr Vancomycin HCl 1,500 mg/ (Sodium Chloride) 500 mls @ 333.333 mls/hr IV Q12H [facility] Methadone HCl (Methadone Hcl 20 Mg/2 Ml Oral.Conc) 30 mg PO DAILY [facility] Methadone HCl (Methadone Hcl 20 Mg/2 Ml Oral.Conc) 5 mg PO ONCE PRN PRN Reason: Opiate Withdrawal Last Admin: 07/27/22 16:56 Dose: 5 mg Mirtazapine (Mirtazapine 7.5 Mg Tablet) 7.5 mg PO BEDTIME [facility] Last Admin: 07/26/22 19:54 Dose: 7.5 mg Morphine Sulfate (Morphine Sulfate 2 Mg/Ml Cartridge) 4 mg IVPUSH Q4H PRN; Protocol PRN Reason: severe pain Last Admin: 07/27/22 16:45 Dose: 4 mg Nicotine (Nicotine 21 Mg Patch.Td24) 21 mg TRANSDERMA DAILY PRN PRN Reason: nicotine cravings Oxycodone HCl (Oxycodone Hcl Immed Release 5 Mg Tablet) 10 mg PO Q4H PRN PRN Reason: moderate pain Pharmacy Consult (Consult Rx Vancomycin Dosing) 1 each MISCELLANE DAILY PRN PRN Reason: Consult order Pharmacy Consult (Consult Rx Vancomycin Dosing) 1 each MISCELLANE DAILY PRN PRN Reason: Consult order Pharmacy Consult (Consult Rx Perform Med Rec) 1 each MISCELLANE ONCE PRN PRN Reason: Consult order Prazosin HCl (Prazosin Hcl 1 Mg Capsule) 1 mg PO BEDTIME MARISABEL; Protocol Last Admin: 07/26/22 19:53 Dose: 1 mg Sodium Chloride (0.9 % Sodium Chloride Flush 3 Ml Syringe) 3 ml IVFLUSH QSHIFT MARISABEL Last Admin: 07/27/22 15:10 Dose: Not Given Trazodone HCl (Trazodone Hcl 100 Mg Tablet) 100 mg PO BEDTIME PRN PRN Reason: insomnia Allergies Allergies Allergy/AdvReac Type Severity Reaction Status Date / Time No Known Allergies Allergy Verified 07/26/22 02:54 Assessment & Plan Assessment & Plan (1) Opioid use disorder: Status: Acute Code(s): F11.90 - Opioid use, unspecified, uncomplicated Assessment and Plan: methadone 20mg x1 methadone 5mg PRN methadone 30mg in AM reviewed safer injection practices, including avoiding the neck will continue to follow I spent __25____ minutes with the patient and/or on the patient floor today, greater than?50% of which was spent counseling/coordinating care.
[2022-07-27] MEDS: vancomycin HCL 1,500 MG in 0.9 % Sodium Chloride 500 ML 333.33 MG IV (20:54)
[2022-07-27] MEDS: Divalproex Sodium ER 250 MG TAB.ER.24H 750 MG PO (20:57)
[2022-07-27] MEDS: chlorproMAZINE HCl 100 MG TABLET PO (20:57)
[2022-07-27] MEDS: Prazosin HCL 1 MG CAPSULE PO (20:57)
[2022-07-27] MEDS: Mirtazapine 7.5 MG TABLET PO (20:57)
[2022-07-27] MEDS: traZODone HCL 100 MG TABLET PO (20:57)
[2022-07-28] MEDS: 0.9 % Sodium Chloride 1,000 ML 100 ML IVCONT (01:42)
[2022-07-28] MEDS: Piperacillin Sodium/Tazobactam 3.375 GM in 0.9 % Sodium Chloride 50 ML IV (05:18)
[2022-07-28] MEDS: Morphine Sulfate 2 MG/ML CARTRIDGE 4 MG IVPUSH ×4 (05:22→21:27)
[2022-07-28] MEDS: vancomycin HCL 1,500 MG in 0.9 % Sodium Chloride 500 ML 333.33 MG IV ×2 (06:33→22:40)
[2022-07-28 07:50] VITALS: BP 117/70; PULSE 64; RESP 18; TEMP 36.7; O2SAT 98
[2022-07-28 08:19] LABS: Hematocrit 28.9 % (37.0-47.0); Hemoglobin 9.1 g/dl (12.0-16.0); Mean Corpuscular HGB Conc 31.5 g/dl (31.0-35.0); Mean Corpuscular Hemoglobin 28.7 pg (27.0-33.0); Mean Corpuscular Volume 91.2 fL (80.0-98.0); Mean Platelet Volume 10.9 fL (9.4-12.3); Platelet Count 176 X10*3/uL (160-400); Red Blood Count 3.17 X10*6/uL (4.20-5.50); Red Cell Distribution Width 14.2 % (11.0-16.0); White Blood Count 4.6 X10*3/uL (4.8-10.8)
[2022-07-28 08:38] LABS: Alanine Aminotransferase 30 U/L (0-31); Albumin Level 2.7 g/dL (3.5-5.0); Alkaline Phosphatase 125 U/L (39-117); Anion Gap 13 (12-20); Aspartate Amino Transferase 31 U/L (5-31); Bilirubin Total < 0.2 mg/dL (0.0-1.0); Blood Urea Nitrogen 9 mg/dL (9-16); C Reactive Protein 8.03 mg/dL (< or = 0.50); Calcium 7.8 mg/dL (8.4-10.2); Carbon Dioxide 18 mmol/L (22-29); Chloride 114 mmol/L (96-108); Creatinine Clr Calc Pharmacy 107.7; Estimated Glomerular Filt Rate > 60; Glucose Random 91 mg/dL (60-115); Potassium 4.2 mmol/L (3.3-5.1); Sodium 141 mmol/L (135-145)
[2022-07-28] MEDS: Famotidine 20 MG TABLET PO ×2 (08:58→21:23)
[2022-07-28] MEDS: Enoxaparin Sodium 40 MG/0.4 ML SYRINGE SUBCUT (08:58)
[2022-07-28] MEDS: FLUoxetine HCl 10 MG CAPSULE 30 MG PO (08:59)
[2022-07-28] MEDS: methADONE HCl 20 MG/2 ML ORAL.CONC 30 MG PO (08:59)
[2022-07-28] MEDS: busPIRone HCl 10 MG TABLET 30 MG PO ×2 (08:59→21:24)
[2022-07-28] MEDS: Gabapentin 600 MG TABLET PO ×2 (09:14→21:24)
--- NOTE | 2022-07-28 09:34 | HO.PM.IMPN ---
Subjective Subjective Date of Service: 07/28/22 Interval History: C/o neck pain No fever Review of Systems Review of Systems: Yes all other systems are reviewed and are negative Physical Exam Vital Signs: Vital Signs: Last Vital Signs Temp 98.0 F 07/28/22 07:50 Pulse 64 07/28/22 07:50 Resp 18 07/28/22 07:50 BP 117/70 07/28/22 07:50 Pulse Ox 98 07/28/22 07:50 O2 Del Method 07/28/22 07:50 BMI result Body Mass Index 23.9 Gen: in no acute distress HEENT: sclera anicteric, moist mucus membranes Neck: R SCM area with drained abscess cavity, no overlying erythema, minimal induration, no purulence or fluctuance Lungs: clear to auscultation bilaterally Heart: regular rate and rhythm, no murmurs Abd: soft, non-tender, non-distended Ext: no edema Skin: warm/well-perfused Neuro: alert and oriented x3, no focal findings Psych: restricted affect Objective Data Active Medications Buspirone HCl (Buspirone Hcl 10 Mg Tablet) 30 mg PO BID [facility] Last Admin: 07/28/22 08:59 Dose: 30 mg Documented By: HAYLEE Chlorpromazine HCl (Chlorpromazine Hcl 25 Mg Tablet) 50 mg PO TID PRN PRN Reason: anxiety Last Admin: 07/27/22 16:14 Dose: 50 mg Documented By: YUDY Chlorpromazine HCl (Chlorpromazine Hcl 100 Mg Tablet) 100 mg PO BEDTIME [facility] Last Admin: 07/27/22 20:57 Dose: 100 mg Documented By: SEPIDEH Clonidine HCl (Clonidine Hcl 0.1 Mg Tablet) 0.1 mg PO BID PRN; Protocol PRN Reason: anxiety Last Admin: 07/27/22 16:14 Dose: 0.1 mg Documented By: YUDY Divalproex Sodium (Divalproex Sodium Er 250 Mg Tab.Er.24h) 750 mg PO BEDTIME [facility] Last Admin: 07/27/22 20:57 Dose: 750 mg Documented By: SEPIDEH Enoxaparin Sodium (Enoxaparin Sodium 40 Mg/0.4 Ml Syringe) 40 mg SUBCUT Q24H [facility] Last Admin: 07/28/22 08:58 Dose: 40 mg Documented By: HAYLEE Famotidine (Famotidine 20 Mg Tablet) 20 mg PO BID [facility] Last Admin: 07/28/22 08:58 Dose: 20 mg Documented By: HAYLEE Fluoxetine HCl (Fluoxetine Hcl 10 Mg Capsule) 30 mg PO DAILY [facility] Last Admin: 07/28/22 08:59 Dose: 30 mg Documented By: HAYLEE Gabapentin (Gabapentin 600 Mg Tablet) 600 mg PO BID [facility] Last Admin: 07/28/22 09:14 Dose: 600 mg Documented By: HAYLEE Piperacillin Sod/Tazobactam (Sod 3.375 gm/ Sodium Chloride) 50 mls @ 100 mls/hr IV Q6H [facility] Last Infusion: 07/28/22 05:52 Dose: 0 mls/hr Documented By: SEPIDEH Sodium Chloride (Ns) 1,000 mls @ 100 mls/hr IVCONT .Q10H [facility] Last Admin: 07/28/22 01:42 Dose: 100 mls/hr Documented By: SEPIDEH Vancomycin HCl 1,500 mg/ (Sodium Chloride) 500 mls @ 333.333 mls/hr IV Q12H [facility] Last Infusion: 07/28/22 09:06 Dose: 0 mls/hr Documented By: HAYLEE Methadone HCl (Methadone Hcl 20 Mg/2 Ml Oral.Conc) 30 mg PO DAILY [facility] Last Admin: 07/28/22 08:59 Dose: 30 mg Documented By: HAYLEE Methadone HCl (Methadone Hcl 20 Mg/2 Ml Oral.Conc) 5 mg PO ONCE PRN PRN Reason: Opiate Withdrawal Last Admin: 07/27/22 16:56 Dose: 5 mg Documented By: YUDY Mirtazapine (Mirtazapine 7.5 Mg Tablet) 7.5 mg PO BEDTIME [facility] Last Admin: 07/27/22 20:57 Dose: 7.5 mg Documented By: SEPIDEH Morphine Sulfate (Morphine Sulfate 2 Mg/Ml Cartridge) 4 mg IVPUSH Q4H PRN; Protocol PRN Reason: severe pain Last Admin: 07/28/22 09:14 Dose: 4 mg Documented By: HAYLEE Nicotine (Nicotine 21 Mg Patch.Td24) 21 mg TRANSDERMA DAILY PRN PRN Reason: nicotine cravings Oxycodone HCl (Oxycodone Hcl Immed Release 5 Mg Tablet) 10 mg PO Q4H PRN PRN Reason: moderate pain Pharmacy Consult (Consult Rx Vancomycin Dosing) 1 each MISCELLANE DAILY PRN PRN Reason: Consult order Pharmacy Consult (Consult Rx Vancomycin Dosing) 1 each MISCELLANE DAILY PRN PRN Reason: Consult order Pharmacy Consult (Consult Rx Perform Med Rec) 1 each MISCELLANE ONCE PRN PRN Reason: Consult order Prazosin HCl (Prazosin Hcl 1 Mg Capsule) 1 mg PO BEDTIME MARISABEL; Protocol Last Admin: 07/27/22 20:57 Dose: 1 mg Documented By: SEPIDEH Sodium Chloride (0.9 % Sodium Chloride Flush 3 Ml Syringe) 3 ml IVFLUSH QSHIFT [facility] Last Admin: 07/28/22 09:02 Dose: Not Given Documented By: HAYLEE Non-Admin Reason: IV Running Trazodone HCl (Trazodone Hcl 100 Mg Tablet) 100 mg PO BEDTIME PRN PRN Reason: insomnia Last Admin: 07/27/22 20:57 Dose: 100 mg Documented By: SEPIDEH Labs CBC & Chem 7: 07/28/22 07:55 07/28/22 07:55 Labs: Laboratory Results - last 24 hr 07/27/22 07/28/22 07/28/22 17:40 07:55 07:55 MCV 91.2 MCH 28.7 MCHC 31.5 RDW 14.2 Plt Count 176 MPV 10.9 Absolute Nucleated RBC 0.000 Nucleated RBC % (auto) 0.0 Anion Gap 13 Estim Creat Clear Calc 107.7 Estimated GFR > 60 Random Glucose 91 Calcium 7.8 L D Total Bilirubin < 0.2 AST 31 ALT 30 Alkaline Phosphatase 125 H C-Reactive Protein 8.03 H Total Protein 5.0 L Albumin 2.7 L D Vancomycin Trough 6.6 L Microbiology Microbiology Results: Microbiology 07/26/22 13:00 Gram Stain - Final Neck Routine Culture - Preliminary Staphylococcus aureus 07/26/22 03:54 Blood Culture - Preliminary Blood - Venous No growth after 48 hours. 07/26/22 03:43 Blood Culture - Preliminary Blood - Venous No growth after 48 hours. Assessment and Plan (1) Abscess of neck: Status: Acute Plan hospital d#23 32yo F with bipolar disorder, polysubstance injection abuse [cocaine, heroin] admitted for neck abscess at injection site # neck abscess - I+D done 07/26/22, growing Staph aureus, susceptibility pending, not bacteremic - d/c pip/yusra, continue vanco d#3, change to PO therapy and discharge tomorrow [to psych?] once susceptibility back # bipolar disorder with SI - sitter, psych evaluation when medically clear - continue valproate, buspirone, mirtazapine, fluoxetine, gabapentin, chlorpromazine, clonidine, trazodone # OUD # cocaine abuse - Addiction Medicine consulted, methadone started # tobacco abuse - NRT # VTE ppx: LMWH In my clinical judgment, the patient requires continued hospitalization for the following reasons: IV ABX, psych hold Quality Stroke Does the patient have a stroke diagnosis?: No VTE Prior VTE?: No VTE Risk Level:: Medical - moderate - high VTE Device Contraindication: Treatment Not Indicated VTE Drug Contraindication: N/A - Med Ordered
[2022-07-28 11:27] VITALS: BP 109/70; PULSE 66; RESP 18; TEMP 36.6; O2SAT 97
--- NOTE | 2022-07-28 13:56 | PC.NURSE ---
Patient resting in NAD, breathing is unlabored. 1:1 at bedside.
[2022-07-28] MEDS: 0.9 % Sodium Chloride Flush 3 ML SYRINGE IVFLUSH (15:27)
--- NOTE | 2022-07-28 15:47 | PC.NURSE ---
Patients right neck dressing changed. oozing serous fluid. Swelling noted. Denies respiratory complaints. Swallowing without issue. Ambulating without difficulty.
[2022-07-28] MEDS: oxyCODONE HCl Immed Release 5 MG TABLET 10 MG PO (15:50)
--- NOTE | 2022-07-28 15:51 | PC.NURSE ---
Patient voiced concerns about pain medication and how methodone dosage wont be efficient I do 20 bags a day . . Patient given PRN's. Will reassess.
[2022-07-28 16:00] VITALS: BP 110/65; PULSE 64; RESP 16; TEMP 36.8; O2SAT 97
--- NOTE | 2022-07-28 18:26 | PM.EVENT ---
Event Note Date of Service: 07/28/22 Event Note: pt c/o worsening swelling in neck, medial to I+D site there is induration extending medially from the I+D site, which is draining she complains of some discomfort swallowing but no breathing issues will repeat CT of neck +IV contrast and add clindamycin to vancomycin
--- NOTE | 2022-07-28 18:41 | PC.NURSE ---
Patient c/ o of increased neck/throat pain. MD aware and clindomycin ordered and stat CT. Consent signed. Breathign is unlbaored, and able to swallow secretions. Patient agrees with this plan.
[2022-07-28 19:28] VITALS: BP 128/82; PULSE 77; RESP 15; TEMP 37.1; O2SAT 99
[2022-07-28] MEDS: iohexoL 350 MG/ML 100 ML INFUS..BTL IV (20:16)
[2022-07-28] MEDS: Divalproex Sodium ER 250 MG TAB.ER.24H 750 MG PO (21:23)
[2022-07-28] MEDS: traZODone HCL 100 MG TABLET PO (21:24)
[2022-07-28] MEDS: Prazosin HCL 1 MG CAPSULE PO (21:24)
[2022-07-28] MEDS: Clindamycin Phosphate/D5W 600 MG/50 ML PIGGYBACK 100 MG IV (21:24)
[2022-07-28] MEDS: Mirtazapine 7.5 MG TABLET PO (21:24)
[2022-07-28] MEDS: chlorproMAZINE HCl 100 MG TABLET PO (21:24)
[2022-07-28] MEDS: vancomycin HCL 1,500 MG in 0.9 % Sodium Chloride 500 ML 333 MG IV (22:31)
[2022-07-28 23:39] VITALS: BP 117/70; PULSE 78; RESP 17; TEMP 36.6; O2SAT 98
[2022-07-29 03:30] LABS: ~HepC Num1 14.44 S/CO (0.00-0.79); ~Hepatitis C Antibody Reactive (Nonreactive)
[2022-07-29 03:32] LABS: HIV AB/AG Nonreactive (Nonreactive); HIV Num 1 0.05 S/CO (0.00-0.99)
[2022-07-29 03:39] VITALS: BP 106/73; PULSE 72; RESP 17; TEMP 36; O2SAT 98
[2022-07-29 03:41] LABS: HBS Num1 33.41 mIU/mL (0-7.99); HBc Num1 0.21 S/CO (0.00-0.79); HBsAGNum1 0.21 S/CO (0.00-0.99); Hepatitis B Core Antibody Nonreactive (Nonreactive); Hepatitis B Surface Antigen Negative (Negative); ~Hepatitis B Surface Antibody REACTIVE (Nonreactive)
[2022-07-29] MEDS: Clindamycin Phosphate/D5W 600 MG/50 ML PIGGYBACK 100 MG IV ×2 (03:45→10:47)
[2022-07-29 07:22] VITALS: BP 116/65; PULSE 68; RESP 17; TEMP 36.6; O2SAT 97
[2022-07-29] MEDS: Morphine Sulfate 2 MG/ML CARTRIDGE 4 MG IVPUSH (08:36)
[2022-07-29] MEDS: Gabapentin 600 MG TABLET PO (08:36)
[2022-07-29] MEDS: FLUoxetine HCl 10 MG CAPSULE 30 MG PO (08:36)
[2022-07-29] MEDS: Famotidine 20 MG TABLET PO (08:36)
[2022-07-29] MEDS: busPIRone HCl 10 MG TABLET 30 MG PO (08:37)
[2022-07-29] MEDS: Enoxaparin Sodium 40 MG/0.4 ML SYRINGE SUBCUT (08:37)
[2022-07-29] MEDS: methADONE HCl 20 MG/2 ML ORAL.CONC 40 MG PO (08:37)
[2022-07-29] MEDS: 0.9 % Sodium Chloride Flush 3 ML SYRINGE IVFLUSH (08:38)
[2022-07-29 09:23] LABS: Anion Gap 14 (12-20); Blood Urea Nitrogen 10 mg/dL (9-16); Carbon Dioxide 25 mmol/L (22-29); Chloride 106 mmol/L (96-108); Creatinine Clr Calc Pharmacy 89.1; Estimated Glomerular Filt Rate > 60; Glucose Random 90 mg/dL (60-115); Sodium 141 mmol/L (135-145)
[2022-07-29 09:27] LABS: Calcium 9.3 mg/dL (8.4-10.2)
[2022-07-29 09:47] LABS: Vancomycin Random 15.7 mcg/mL (15-20)
--- NOTE | 2022-07-29 09:54 | HE.PHANOTE ---
[VANCO ADDENDUM] Changing dose to 1000mg Q12H with predicted AUC 534mg/L; next trough to be drawn 07/30 @0900
--- NOTE | 2022-07-29 09:56 | MHC.CM.PN ---
Addendum entered by Soraida Pandey RN 07/29/22 10:19: PT DID REPORT SHE MAY WANT TO GO BACK ON SUBOXONE, [employer] SAL[employer] REPRESENTATIVE NOTIFIED VIA TIGER. Original Note: EMR REVIEWED, PT ADMITTED W/NECK ABSCESS, BIPOLAR W/SI, AND +PSA. CM MET W/PT WHO REPORTS SHE WOULD LIKE TO GO HOME HOWEVER NEEDS TO BE CLEARED BY N, PT STATES, I WAS UNDER THE INFLUENCE THATS WHY I WAS SAYING THOSE THINGS PT CURRENTLY DENIES SI, NEED FOR INPT PSYCH AND ALSO DECLINES [place], PT REPORTS SHE GETS HER SUBOXONE FROM [facility] AND REPORTS SHE IS NOT INTERESTED IN METHADONE. PT DECLINES HAVING FOLLOWED UP W/AFTERCARE PLAN WHEN D/C'D FROM . PT DENIES HAVING A PCP AND DECLINES ASSISTANCE FROM CM TO FIND A PCP AND/OR SET UP FIRST APPT. PT DENIES HAVING A HCP AND DECLINES TO COMPLETE ONE THIS ADMISSION. PT DENIES BEING VACCINATED FOR COVID. PT WOULD LIKE TO BE SEEN BY [facility] TO BE CLEARED TO D/C HOME TODAY.
--- NOTE | 2022-07-29 11:14 | MHC.CM.PN ---
PER CARE TEAM PT MEDICALLY CLEARED FOR D/C HOME, CARE TEAM ALSO REPORTS THEY WILL PUT IN A REMINDER UNDER HER D/C TO FOLLOW U W/SERVICES AT [facility] AND REPORTED TO THEM SHE ONLY MISSED ONE APPT, PT ALSO MET W/RECOVERY NURSE WHO HAS ARRANGED FOR HER TO COME IN A WALK IN TO [facility] TOMORROW MORNING, PT DECLINES SHUTTLE TRANSPORT AND REPORTS SHE WILL WALK HOME. PT WILL BE ESCORTED TO [facility] TO COLLECT CLOTHING/BELONGINGS
--- NOTE | 2022-07-29 11:15 | MHC.CARE ---
CARE Team met with Pt who presented to [facility] ED on 07/26/22 due to neck swelling and reported SI. Pt was medically admitted and treated for MRSA. Pt was referred to the CARE Team upon medical clearance. Pt denies current SI/HI/VH/AH. Pt reports when she initially presented to [facility] ED she was under the influence and has historically tested positive for opiates, heroin, and cocaine. Pt reports overall doing well, currently has providers through [facility] and has been staying with her boyfriend. Pt reports she missed an appt with [facility] and will follow up with them after discharge. Plan for Pt to be reconnected with the [facility] and re-start suboxone. Pt is future orientaetd and advocating for discharge. CARE Team spoke Dr. García who is agreement with plan. Pt provided with information for [facility] and [facility] in discharge instruction to follow up if needed.
--- NOTE | 2022-07-29 11:19 | P.DS_ITS ---
DS: Providers Provider Date of Service: 07/29/22 Date of admission: 07/26/22 12:49 Primary care physician: Unknown Physician Consults: 07/26/22 09:33 Consult to General Surgery Routine Consulting Provider: Terence Garcia Reason for consultation: neck abscess Has provider been notified: No 07/26/22 10:35 Addiction Medicine Routine Consulting Provider: [place] Reason for consultation: polysubstance/ivda Has provider been notified: No Consult for Sitter Routine Reason for consultation: depression/si Has provider been notified: No 07/29/22 10:54 [facility] [Consult to Crisis] Stat Reason for consultation: suicidal ideation medically cleared Has provider been notified: No DS: Diagnosis Discharge Diagnosis (1) Abscess of neck: Status: Acute DS: Summary Hospital Course Hospital Course: Chief Complaint: neck abscess, bipolar/SI Patient with hsitory of bipolar disorder with SI, polysubstance abuse including cocaine/cracak/heroin, IVDA, history of hepatitis C, and tobacco abuse. Patient is aggitated in bed and provides limited history. Majority of history taken from ED provider note and review of chart. She reports injecting heroin and cocaine into her right jugular vein about 1 week ago and abotu 3-4 days ago developed a small pimple on the right side of her neck that has grown in size and is quite painful. There has been no drainage. No fevers, no back pain. She does have history of heavy alcohol use but denies any recent use. She is reporting vague complaints of SI with plan of overdose. She has no other complaints except being tired and wanting to sleep. In the ED, blood pressures slightly lower than baseline at 87/44, repeat 104/58. vitals otherwise stable. No leukocytosis. LFTs mildly elevated AST 40, ALt 47. Tox screen negative for EtOH. Urine tox screen p ending. Has received dose of IV vanco and zosyn. 32yo F with bipolar disorder, polysubstance injection abuse [cocaine, heroin] admitted for right-sidedneck abscess at injection site, patient underwent incision and drainage on 07/26 cultures grew MRSA, patient initially treated with IV vancomycin and IV Zosyn will transition to by mouth clindamycin and will discharge her home she has been strongly recommended to abstain from illicit drug use. On admission patient complained of suicidal ideation, therefore had sitter, today seen by care team and has been cleared for discharge, she has been r ecommended to continue all home medications as before and follow up with [facility] In regard for IV drug use patient seen by Addiction Team initially treated with methadone however patient declined methadone upon discharge she has been on Suboxone in the past but did not refill prescription since May she has been recommended to follow-up at [facility] for tobacco abuse counseling done will discharge on nicotine patch Time Spent with Patient Time attestation: Total time spent providing and/or coordinating discharge services: Discharge coordination time: Greater than 30 minutes Quality: Safe Use of Opioids Does Pt have an Active Cancer Diagnosis on the Problem List?: No Quality: Stroke Does the patient have a stroke diagnosis?: No Physical Exam Vital Signs: Vital Signs: Last Vital Signs Temp 97.8 F 07/29/22 07:22 Pulse 68 07/29/22 07:22 Resp 17 07/29/22 07:22 BP 116/65 07/29/22 07:22 Pulse Ox 97 07/29/22 07:22 O2 Del Method 07/29/22 07:22 BMI result Body Mass Index 23.9 Const: Other: Gen: awake alert x3,in no acute distress Neck: R SCM area with drained abscess cavity, no overlying erythema, minimal induration, no purulence or fluctuation Lungs: clear to auscultation bilaterally Heart: regular rate and rhythm, no murmurs Abd: soft, non-tender, non-distended Ext: no edema Skin: warm/well-perfused Neuro: alert and oriented x3, no focal findings Psych: appropriate affect ? DS: Data Data Completed and Pending Completed studies during hospitalization [Text1]: Procedures Detoxification Services for Substance Abuse Treatment (11/22/21) Resection of Appendix, Percutaneous Endoscopic Approach (08/19/21) Labs on day of discharge: Laboratory Results - last 24 hr 07/28/22 07/28/22 07/28/22 07:55 07:55 07:55 Sodium Potassium Chloride Carbon Dioxide Anion Gap BUN Creatinine Estim Creat Clear Calc Estimated GFR Random Glucose Calcium Random Vancomycin Hep Bs Antigen Negative Hep Bs Antibody REACTIVE Hep B Core Total Ab Nonreactive Hepatitis C Ab (EIA) Reactive H HIV 1&2 Ab/P24 Ag 4thGn Nonreactive 07/29/22 07/29/22 07/29/22 08:57 08:57 08:57 Sodium 141 Potassium 4.0 Chloride 106 Carbon Dioxide 25 Anion Gap 14 BUN 10 Creatinine 0.75 Cancelled Estim Creat Clear Calc 89.1 Cancelled Estimated GFR > 60 Cancelled Random Glucose 90 Calcium 9.3 D Random Vancomycin 15.7 Hep Bs Antigen Hep Bs Antibody Hep B Core Total Ab Hepatitis C Ab (EIA) HIV 1&2 Ab/P24 Ag 4thGn Preliminary micro results at discharge 07/26/22 03:54 Blood Culture - Preliminary Blood - Venous No growth after 48 hours. 07/26/22 03:43 Blood Culture - Preliminary Blood - Venous No growth after 48 hours. Discharge Plan Discharge Patient Disposition: Home, Self-Care Discharge Diagnosis: neck abscess tobacco use disorder substance abuse Referrals: [facility] [Other] - 1 Week [facility] [Other] - 1 Week Physician,Unknown J [Primary Care Provider] - 1 Week Discharge Medications: New clindamycin HCl 300 mg capsule 300 mg PO Q8H Qty: 15 0RF nicotine 21 mg/24 hr Patch 24 Hour 21 mg transdermal DAILY Qty: 30 0RF Continued buprenorphine-naloxone 8-2 mg film 1 film sublingual TID Qty: 24 0RF nicotine 21 mg/24 hr Patch 24 Hour 21 mg transdermal DAILY PRN (Reason: nicotine cravings) 28 Days Qty: 28 0RF clonidine HCl 0.1 mg Tablet 0.1 mg PO BID PRN (Reason: anxiety) 30 Days Qty: 60 0RF Protocol: Hold for SBP< HOLD for SBP < : 90 fluoxetine 10 mg Capsule 30 mg PO DAILY 30 Days Qty: 90 0RF chlorpromazine 50 mg tablet 50 mg PO TID PRN (Reason: anxiety) 30 Days Qty: 90 0RF Rx Instructions: take 1 to 1.5 tabs as needed for anxiety up to 3 times per day trazodone 100 mg Tablet 100 mg PO BEDTIME PRN (Reason: insomnia) 30 Days Qty: 30 0RF famotidine 20 mg Tablet 20 mg PO BID 30 Days Qty: 60 0RF gabapentin 600 mg tablet 600 mg PO BID 30 Days Qty: 60 0RF chlorpromazine 100 mg Tablet 100 mg PO BEDTIME 30 Days Qty: 30 0RF prazosin 1 mg Capsule 1 mg PO BEDTIME 30 Days Qty: 30 0RF buspirone 30 mg Tablet 30 mg PO BID 30 Days Qty: 60 0RF divalproex [Depakote ER] 250 mg Tablet Extended Release 24 Hr 750 mg PO BEDTIME 30 Days Qty: 90 0RF mirtazapine 7.5 mg Tablet 7.5 mg PO BEDTIME 30 Days Qty: 30 0RF Discharge Orders: Discharge Order (Routine); Ordered 07/29/22 Ordered By: Jada Stover Diet: Advance to usual diet Activity on Discharge: As tolerated Stand Alone Forms: Patient Portal Discharge page Care Plan Goals: continue antibiotic as prescribed strongly recommend to avoid illicit drug use, recommend to resume Suboxone Health Concerns: continue home medications as before Plan of Treatment: outpatient follow-up with [facility] and primary care physician Assessment: as per discharge summary
[2022-07-29 11:32] VITALS: BP 119/65; PULSE 71; RESP 18; TEMP 36.3; O2SAT 99
[2022-07-29] MEDS: vancomycin HCL 1,000 MG in 0.9 % Sodium Chloride 250 ML 270 MG IV (11:36)
[2022-07-29] MEDS: Naloxone HCl Nasal TAKE HOME 4 MG SPRAY NOSTRILALT (12:48)
[2022-07-29] MEDS: oxyCODONE HCl Immed Release 5 MG TABLET 10 MG PO (12:48)
[2022-07-31 12:22] LABS: HepC Viral Load 125 IU/mL (NOT DETECTED)
== END 2022-07-29 13:05 | disposition home or self-care (01) | DRG 383 ==
LOC: HO.ED 07:19 → HO.EDOVER 13:14 → HO.S3 07-27 09:36
PROVIDERS: Family Medicine; Physician Assistant Medical; Admitting Provider Physician Assistant; Emergency Provider Internal Medicine; PCP Internal Medicine; Visit Provider Hospitalist
DX: L02.11 Cutaneous abscess of neck (principal); R45.851 Suicidal ideations; F11.20 Opioid dependence, uncomplicated; F14.10 Cocaine abuse, uncomplicated; B95.62 Methicillin resistant Staphylococcus aureus infection as the cause of diseases classified elsewhere; F31.81 Bipolar II disorder; F17.210 Nicotine dependence, cigarettes, uncomplicated; Z20.822 Contact with and (suspected) exposure to COVID-19; Z86.19 Personal history of other infectious and parasitic diseases; Z56.0 Unemployment, unspecified; Z71.51 Drug abuse counseling and surveillance of drug abuser; Z71.6 Tobacco abuse counseling; Z79.899 Other long term (current) drug therapy
CPT/HCPCS: 36415; 70491; 80048; 80053; 80143; 80179; 80202; 82077; 82565; 83605; 85025; 85027; 86140; 86704; 86706; 86803; 87040; 87071; 87077; 87186; 87205; 87340; 87389; 87522; 87635; 96365; 96366; 96375; 99285; J1650; J2270; J2543; J3370; Q9967

== ENCOUNTER → 2022-07-30 09:14 | Outpatient (BNVA) | payer OTHER, SELFPAY | PROVIDERS: Visit Provider Nurse Practitioner Psychiatric/Mental Health | DX: Z51.81 Encounter for therapeutic drug level monitoring (principal); F11.20 Opioid dependence, uncomplicated; F14.10 Cocaine abuse, uncomplicated | CPT/HCPCS: 80305; 99212 ==

== ENCOUNTER 2022-08-06 01:03 | Inpatient (IN) | payer OTHER, SELFPAY ==
[2022-08-06 01:22] VITALS: BP 120/68; BP 122/78; PULSE 76; PULSE 80; RESP 18; TEMP 37.1; O2SAT 100; O2SAT 99; BMI 22.1
[2022-08-06 01:33] LABS: MANUAL DIFF FLAG NO
[2022-08-06 01:34] LABS: Basophils Percent Auto 0.5 % (0-2); Eosinophils Percent Auto 0.7 % (0-4); Hematocrit 36.6 % (37.0-47.0); Hemoglobin 11.8 g/dl (12.0-16.0); Imm Gran Abs Auto 0.03 X10*3/uL (0.00-0.03); Imm Gran Pct Auto 0.5 % (0.0-0.4); Lymphocytes Absolute Auto 1.7 X10*3/uL (1.2-4.9); Lymphocytes Percent Auto 30.8 % (20-40); Mean Corpuscular HGB Conc 32.2 g/dl (31.0-35.0); Mean Corpuscular Hemoglobin 28.4 pg (27.0-33.0); Mean Platelet Volume 9.9 fL (9.4-12.3); Monocytes Absolute Auto 0.4 X10*3/uL (0.1-1.2); Monocytes Percent Auto 6.4 % (2-11); Neutrophils Absolute Auto 3.3 x10*3/uL (2.0-8.3); Neutrophils Percent Auto 61.1 % (45-73); Platelet Count 255 X10*3/uL (160-400); Red Blood Count 4.16 X10*6/uL (4.20-5.50); Red Cell Distribution Width 14.3 % (11.0-16.0); White Blood Count 5.5 X10*3/uL (4.8-10.8)
[2022-08-06 01:44] VITALS: BP 123/68; PULSE 72; RESP 17; TEMP 36.1
[2022-08-06 01:48] LABS: COVID-19 Test Negative (Negative); IDNOW Serial# 16C4AD1C
[2022-08-06 01:56] LABS: Alanine Aminotransferase 46 U/L (0-31); Alkaline Phosphatase 116 U/L (39-117); Anion Gap 18 (12-20); Aspartate Amino Transferase 57 U/L (5-31); Bilirubin Total 0.6 mg/dL (0.0-1.0); Blood Urea Nitrogen 10 mg/dL (9-16); Calcium 9.3 mg/dL (8.4-10.2); Carbon Dioxide 22 mmol/L (22-29); Chloride 100 mmol/L (96-108); Creatinine Clr Calc Pharmacy 79.5; Estimated Glomerular Filt Rate > 60; Glucose Random 89 mg/dL (60-115); Potassium 3.8 mmol/L (3.3-5.1); Sodium 136 mmol/L (135-145); Total Protein 7.3 g/dL (6.5-8.0)
--- NOTE | 2022-08-06 02:43 | ED.PSYCH ---
HPI - Psych General Chief Complaint: Psychiatric Symptoms Stated Complaint: SI W/PLAN,CALM/COOP @ THIS TIME PER EMS Time Seen by Provider: 08/06/22 01:12 Source: patient Mode of arrival: EMS History of Present Illness HPI Narrative: 32-year-old female with history of cocaine and opioid use disorder, current everyday smoker, bipolar 2, presents via EMS for suicidal ideation with a plan. Patient denies any AVH and states that she is not currently taking any of her medications as she is ?it's running around trying to do drugs?. Patient is not interested in detox at this time if she states that she needs to be ?treated for my psych problems 1st?. Otherwise, she denies any fever, chills, shortness of breath, chest pain/palpitations, GI or symptoms. Related Data Previous Rx's Medication Instructions Recorded chlorpromazine 100 mg tablet 100 mg PO BEDTIME 30 days #30 tabs 05/06/22 chlorpromazine 50 mg tablet 50 mg PO TID PRN anxiety 30 days 05/06/22 #90 tabs divalproex 250 mg tablet,extended 750 mg PO BEDTIME 30 days #90 tabs 05/06/22 release 24 hr (Depakote ER) famotidine 20 mg tablet 20 mg PO BID 30 days #60 tabs 05/06/22 fluoxetine 10 mg capsule 30 mg PO DAILY 30 days #90 caps 05/06/22 mirtazapine 7.5 mg tablet 7.5 mg PO BEDTIME 30 days #30 tabs 05/06/22 clindamycin HCl 300 mg capsule 300 mg PO Q8H #15 caps 07/29/22 buprenorphine 8 mg-naloxone 2 mg 1 film sublingual TID #24 ea 07/30/22 sublingual film buspirone 30 mg tablet 30 mg PO BID 30 days #60 tabs 07/30/22 Allergies Allergy/AdvReac Type Severity Reaction Status Date / Time No Known Allergies Allergy Verified 07/26/22 02:54 Review of Systems Review of Systems: Pertinent positives and negatives as stated in HPI 10 point review of systems is otherwise negative. PMFSH Past Medical History Source: nursing notes reviewed Medical History Alcohol dependence Alcohol use disorder, severe, dependence Alcohol use disorder, severe, dependence Bipolar 2 disorder Cocaine use Cocaine use disorder Cocaine use disorder Depression JOANN (generalized anxiety disorder) History of hepatitis C IV drug abuse MDD (major depressive disorder), recurrent episode, moderate Opiate abuse, continuous Opioid use disorder Opioid use disorder, moderate, dependence Polysubstance abuse Smoker Surgical History S/P laparoscopic appendectomy Family History Family History Mother Polysubstance abuse Father Polysubstance abuse Social History Social History Household Members: Significant Other Household Members Other:: ex boyfriend Housing: Apartment Housing Other:: Rented a room with ex in an apartment Do you presently have visiting nurse or other home services: No Alcohol intake: current Alcohol intake frequency: 3 or more drinks per day Alcohol type: hard liquor Patient Tobacco Use Status: Current everyday Tobacco user Tobacco use type: Cigarette Cigarette Packs Per Day: 0.75 Cigarettes Per Day: 20 Years Smoked: 13 e-Cigarette/Vaping Use: Currently Using Second Hand Smoke Exposure: Yes Substance Use Type: Crack/Cocaine and Heroin Advance Directives: No Advance Directives Information Provided: No service: No Current occupational status: unemployed Sexual orientation: Straight/Heterosexual Physical Exam Vital Signs: Vital Signs: Last Vital Signs Temp 97.0 F 08/06/22 01:44 Pulse 72 08/06/22 01:44 Resp 17 08/06/22 01:44 BP 123/68 08/06/22 01:44 Pulse Ox 100 08/06/22 01:22 O2 Del Method 08/06/22 01:44 BMI result Body Mass Index 22.1 VITAL SIGNS: Reviewed. GENERAL: Well developed, well nourished, in no acute distress. HEAD: Normocephalic/atraumatic EYES: PERRLA, EOMI EARS: Ext canals without abnormality NOSE: Nares patent bilateral OROPHARYNX: no oral lesions noted, posterior pharynx clear NECK: Supple, no adenopathy LUNGS: Normal breath sounds. No adventitious sounds or accessory muscle use. SpO2<100> CARDIOVASCULAR: Regular rate and rhythm without noted murmurs, no JVD or lower extremity edema. ABDOMEN: Soft, non-tender, non-distended with bowel sounds. MUSCULOSKELETAL: No tenderness, deformities, or effusions noted on gross inspection. EXTREMITIES: No cyanosis, clubbing or edema. SKIN: Inspection of the skin reveals no rashes NEUROLOGIC: Alert and oriented x 4. Strength and sensation to light touch were grossly intact x 4, cranial nerves 2-12 grossly intact PSYCH: Normal affect, calm, cooperative Course Course Course Narrative: 32-year-old female with history and clinical presentation consistent with polysubstance use disorder as well as underlying bipolar 2. Patient is otherwise medically cleared for further evaluation by the behavioral team. Reevaluation(s) Reevaluation #1: Patient placed in physician observation because the patient needed more time for evaluation by the behavioral team. At the time observation was started the patient's vital signs were stable, patient is alert and oriented, neuro: Nonfocal, CV RRR, lungs clear Time: 02:47 MDM - Psych Lab Data Result diagrams: 08/06/22 01:28 08/06/22 01:28 Labs: Lab Results 08/06/22 08/06/22 08/06/22 Range/Units 01:24 01:28 01:28 WBC 5.5 (4.8-10.8) X10*3/uL RBC 4.16 L D (4.20-5.50) X10*6/uL Hgb 11.8 L D (12.0-16.0) g/dl Hct 36.6 L D (37.0-47.0) % MCV 88.0 (80.0-98.0) fL MCH 28.4 (27.0-33.0) pg MCHC 32.2 (31.0-35.0) g/dl RDW 14.3 (11.0-16.0) % Plt Count 255 D (160-400) X10*3/uL MPV 9.9 (9.4-12.3) fL Immature Gran % (Auto) 0.5 H (0.0-0.4) % Neut % (Auto) 61.1 (45-73) % Lymph % (Auto) 30.8 (20-40) % [place] % (Auto) 6.4 (2-11) % Eos % (Auto) 0.7 (0-4) % Baso % (Auto) 0.5 (0-2) % Lymph # (Auto) 1.7 (1.2-4.9) X10*3/uL [place] # (Auto) 0.4 (0.1-1.2) X10*3/uL Eos # (Auto) 0.0 (0.0-0.4) X10*3/uL Baso # (Auto) 0.0 (0.0-0.2) X10*3/uL Abs Immat Gran (auto) 0.03 (0.00-0.03) X10*3/uL Absolute Neuts (auto) 3.3 (2.0-8.3) x10*3/uL Absolute Nucleated RBC 0.000 (0.0-0.012) X10*3/uL Nucleated RBC % (auto) 0.0 (0.0-0.2) /100WBC Sodium 136 (135-145) mmol/L Potassium 3.8 (3.3-5.1) mmol/L Chloride 100 (96-108) mmol/L Carbon Dioxide 22 (22-29) mmol/L Anion Gap 18 (12-20) BUN 10 (9-16) mg/dL Creatinine 0.84 (0.5-1.4) mg/dL Estim Creat Clear Calc 79.5 Estimated GFR > 60 Random Glucose 89 (60-115) mg/dL Calcium 9.3 (8.4-10.2) mg/dL Total Bilirubin 0.6 (0.0-1.0) mg/dL AST 57 H (5-31) U/L ALT 46 H (0-31) U/L Alkaline Phosphatase 116 (39-117) U/L Total Protein 7.3 D (6.5-8.0) g/dL Albumin 4.0 D (3.5-5.0) g/dL COVID-19 (ALBA) Negative (Negative) COVID-19 Clin Com See Note Discharge Plan Discharge Clinical Impression: Bipolar 2 disorder, Opioid use disorder, Cocaine use disorder, Suicidal ideation Patient Disposition: Still a Patient Prescriptions: No Action fluoxetine 10 mg Capsule 30 mg PO DAILY 30 Days Qty: 90 0RF chlorpromazine 50 mg tablet 50 mg PO TID PRN (Reason: anxiety) 30 Days Qty: 90 0RF Rx Instructions: take 1 to 1.5 tabs as needed for anxiety up to 3 times per day famotidine 20 mg Tablet 20 mg PO BID 30 Days Qty: 60 0RF chlorpromazine 100 mg Tablet 100 mg PO BEDTIME 30 Days Qty: 30 0RF divalproex [Depakote ER] 250 mg Tablet Extended Release 24 Hr 750 mg PO BEDTIME 30 Days Qty: 90 0RF mirtazapine 7.5 mg Tablet 7.5 mg PO BEDTIME 30 Days Qty: 30 0RF clindamycin HCl 300 mg capsule 300 mg PO Q8H Qty: 15 0RF buprenorphine-naloxone 8-2 mg film 1 film sublingual TID Qty: 24 0RF buspirone 30 mg tablet 30 mg PO BID 30 Days Qty: 60 0RF
[2022-08-06 02:47] LABS: Ethanol < 10 mg/dL
[2022-08-06] MEDS: hydrOXYzine HCL 50 MG TABLET PO (03:34)
[2022-08-06 04:26] VITALS: BP 126/72; PULSE 71; RESP 18; O2SAT 98
[2022-08-06 05:55] VITALS: BP 101/54; PULSE 61; RESP 17
--- NOTE | 2022-08-06 08:02 | PHA.MEDREC ---
Pharmacy Consult ? Medication Reconciliation Pharmacy has completed the medication reconciliation. Pt recently discharged last week, noted in report she hasn't been taking meds at home. Used last admin times from discharge summary.
--- NOTE | 2022-08-06 10:10 | PC.NURSE ---
Pt remains asleep at this time, Pt observer present for safety.
--- NOTE | 2022-08-06 11:44 | PC.NURSE ---
Plan for inpt bedsearch, pt aware/agreeable
[2022-08-06 11:45] VITALS: BP 103/54; PULSE 71; RESP 14; O2SAT 98
--- NOTE | 2022-08-06 14:56 | ECG_ITS ---
Test Reason : substance abuse Blood Pressure : / mmHG Vent. Rate : 064 BPM Atrial Rate : 064 BPM P-R Int : 144 ms QRS Dur : 084 ms QT Int : 428 ms P-R-T Axes : 044 068 025 degrees QTc Int : 441 ms Normal sinus rhythm Normal ECG When compared with ECG of 17-MAR-2022 02:53, Nonspecific ST and T wave abnormality is no longer Present Referred By: Yue Valdivia Electronically Signed By:ROJAS SALINAS
[2022-08-06 17:40] LABS: Appearance Urine Turbid; Color Urine Dark Yellow; Glucose Urine UA Negative (Negative); Leukocyte Esterase Urine Small (1+) (Negative); Nitrite Urine Negative (Negative); PH 5.5 (5.0-9.0); Specific Gravity - Urine >= 1.030 (1.005-1.025); Urine Blood Negative (Negative); Urine Ketones Trace mg/dL (Negative); Urine Protein Trace mg/dL (Neg-Trace)
[2022-08-06 17:46] LABS: UPreg QC Valid YES; Urine Pregnancy NEGATIVE (NEGATIVE)
[2022-08-06 17:51] LABS: Amphetamine Screen Urine Not Detected (Not Detect); Barbiturates, Urine Not Detected (Not Detect); Benzodiazepines Screen Urine Not Detected (Not Detect); Cannabinoid Screen Urine Not Detected (Not Detect); Cocaine Screen Urine POSITIVE (Not Detect); Fentanyl, urine POSITIVE (Not Detect); Opiate Screen Urine POSITIVE (Not Detect); Phencyclidine Screen Urine Not Detected (Not Detect)
[2022-08-06 18:09] LABS: Bacteria Urine 1+ (None Seen); Calcium Oxalate Crystals Urine Present; Renal Epithelial Cells Urine Present; Transitional Epi Cells Urine Present; UACC Culture Trigger YES
[2022-08-06] MEDS: Prazosin HCL 1 MG CAPSULE PO (20:38)
[2022-08-06] MEDS: cloNIDine HCL 0.1 MG TABLET PO (20:38)
[2022-08-06] MEDS: Famotidine 20 MG TABLET PO (20:39)
[2022-08-06] MEDS: busPIRone HCl 10 MG TABLET 30 MG PO (20:39)
[2022-08-06] MEDS: chlorproMAZINE HCl 25 MG TABLET 50 MG PO (20:39)
[2022-08-06] MEDS: traZODone HCL 100 MG TABLET PO (21:26)
[2022-08-06] MEDS: Buprenorphine/Naloxone 2/0.5mg FILM 1 FILM SUBLINGUAL (21:27)
--- NOTE | 2022-08-07 00:35 | PC.ADMIT ---
Patient is a 32 year old single Yakut speaking female admitted as a CV admission to at 2015 and placed on 15 minute safety checks. Patient admission diagnosis; Unspecified depressive disorder, unspecified Opioid related disorder, unspecified stimulant related disorder. Current medical condition to be monitored: opioid withdrawal. Patient has a long history of substance abuse and suicidality via heroin overdoses. Patient is anxious, depressed and overwhelmed; she is ...sick of being a drug addict. Apparently she has been using more heroin each day to end her life. Patient was very tired on her arrival to the unit. She denied any current SI while on the unit, but does feel she would be at risk if not in the hospital. She was irritable and tired, but did sign legals and releases; she has no providers in the community. Patient ate a sandwich and drank some juice and took HS medications. She reported withdrawal symptoms and Dr. Rosario put in orders for prn Suboxone if her COWS were 12 or higher. Report given to next shift. Patient appears to be sleeping at shift change.
[2022-08-07 06:00] VITALS: BP 100/55; PULSE 62; RESP 16; TEMP 36.4; O2SAT 97
[2022-08-07 08:00] VITALS: PULSE 62
[2022-08-07] MEDS: FLUoxetine HCl 10 MG CAPSULE 30 MG PO (08:30)
[2022-08-07] MEDS: busPIRone HCl 10 MG TABLET 30 MG PO ×2 (08:30→21:24)
[2022-08-07] MEDS: Famotidine 20 MG TABLET PO ×2 (08:30→21:24)
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
[2022-08-07] MEDS: Buprenorphine/Naloxone 8/2 mg FILM 1 FILM SUBLINGUAL (11:57)
--- NOTE | 2022-08-07 14:12 | MHC.CLN ---
NUTRITION CONSULT FOR WEIGHT LOSS IN PAST FEW MONTHS. REVIEW OF WEIGHT HISTORY SHOWS WEIGHT LOSS OF 26#, -17% X 5 MONTHS. PATIENT WITH DRUG AND ALCOHOL ABUSE. PER ADMISSION NOTES, PATIENT HAS BEEN USING [facility]. HAD COVID 05/12/22. VISITED PATIENT AFTER LUNCH BUT SHE DID NOT WANT TO TALK. OBSERVED LUNCH TRAY. ATE ICE CREAM ONLY. HAD THREE ENTREES AND THREE DESSERTS BUT DID NOT TOUCH. DISCUSSED PRIOR ADM INTAKE WITH STAFF MEMBER FAMILIAR WITH PATIENT. HX OF EATING WELL AND PATIENT EXPRESSES CONCERNED WHEN DOES NOT GET FOOD ORDERED. PLEASE CONSULT RD IF INTAKE/APPETITE DOES NOT IMPROVE.
[2022-08-07 16:00] VITALS: PULSE 57
[2022-08-07 16:30] VITALS: BP 95/57; PULSE 73; TEMP 35.9
[2022-08-07] MEDS: cloNIDine HCL 0.1 MG TABLET PO (16:44)
[2022-08-07] MEDS: chlorproMAZINE HCl 25 MG TABLET 50 MG PO ×2 (16:45→21:30)
[2022-08-07] MEDS: Buprenorphine/Naloxone 4/1 mg FILM 1 FILM SUBLINGUAL (17:26)
--- NOTE | 2022-08-07 17:35 | PC.NURSE ---
Patient signed a 3-day notice today. 3-day notice will be up 08/12/2022.
[2022-08-07] MEDS: Nicotine Polacrilex 2 MG GUM 4 MG BUCCAL (18:38)
[2022-08-07] MEDS: Gabapentin 300 MG CAPSULE PO ×2 (19:09→21:25)
[2022-08-07 20:00] VITALS: PULSE 68
[2022-08-07] MEDS: Divalproex Sodium ER 250 MG TAB.ER.24H PO (21:24)
[2022-08-07] MEDS: traZODone HCL 100 MG TABLET PO (21:30)
[2022-08-08 07:00] VITALS: BMI 23.3
[2022-08-08 08:00] VITALS: PULSE 84
[2022-08-08] MEDS: busPIRone HCl 10 MG TABLET 30 MG PO ×2 (09:44→21:35)
[2022-08-08] MEDS: Buprenorphine/Naloxone 12/3 mg FILM 1 FILM SUBLINGUAL (09:44)
[2022-08-08] MEDS: Gabapentin 300 MG CAPSULE PO (09:44)
[2022-08-08] MEDS: FLUoxetine HCl 10 MG CAPSULE 30 MG PO (09:44)
[2022-08-08] MEDS: Famotidine 20 MG TABLET PO ×2 (09:47→21:36)
[2022-08-08 09:53] VITALS: BP 103/57; PULSE 84; RESP 16; TEMP 36.1; O2SAT 100
--- NOTE | 2022-08-08 10:21 | HO.PSYCHPN ---
Subjective Subjective Date of Service: 08/08/22 Reason For Visit: Depression/ SI Interim History: pt with bright affect, out of bed, socializing in [place]. Pt apologetically explains that she lied about being suicidal in order to get a bed; she explains she had an argument with her boyfriend who kicked her out and she was in the street for a few days; she was feeling down, it was raining and she wanted a place to stay. She says I' know it was wrong...i feel bad about it... She denies that she took an overdose of heroin. Patient has reconciled with her boyfriend and asks for discharge. Pt reports she's actually been in good mood, no depression, no SI; of note, her affect is bright and disposition, calm and friendly unlike other past admissions where she typically emotionally distraught. Patient says she's been using less often, though is vague on frequency, and that suboxone helps; her boyfriend has remained sober which she says is also helping her use less. Patient says she really does not drink alcohol any more and has not for months. Patient Takes most of her meds, though she misses doses throughout the week; she has not taken much in the past month however. Patient wants to get back on her medications which she says is overall helpful. She says she still struggles with anxiety quite frequently but agrees that until she is staying sober and taking Prozac/BuSpar consistently this is unlikely to change. Patient wants to get back on Suboxone; discussed how taking it once a day is the preferred method since her receptors a covered throughout the day; breaking up t.i.d. is reminiscent of substance abuse habits and leaves patient more vulnerable. Patient also discussed Thorazine and that it is helpful but sometimes 100 mg is too much and so she agrees to just to be prescribed 50 mg tablets with an option for taking to with them if needed. Patient reiterates that she is hoping to discharge; she agrees to remain on the unit for medication management and be set up with outpatient providers to get back on Suboxone. Mental Status Exam Mental Status Exam Narrative: Pt is alert and oriented; behavior is cooperative, friendly; dressed in casual attire with combed hair and adequate hygiene; mood is described as good and affect congruent, bright, warm; eye contact appropriate; Speech is normal rate, volume and prosody and not pressured; no psychomotor retardation/agitation present; thought process is organized and goal directed; Thought content is on discharge; denies SI/HI; otherwise pertinent to relevant topics and without any delusional content, paranoid ideations or grandiosity; There is no evidence of perceptual disturbance. ?Patients insight and judgment is fair and adequate. Diagnostics Vital Signs (24Hr): Vital Signs - 24 hr 08/07/22 16:30 08/08/22 09:53 Temperature 96.7 F L 97.0 F Pulse Rate 73 84 Respiratory Rate 16 Blood Pressure 95/57 L 103/57 L Pulse Oximetry 100 Oxygen Delivery Method Room Air BMI result Body Mass Index 23.3 Labs Results: 08/06/22 01:28 08/06/22 01:28 Labs: Laboratory Results - last 48 hr 08/06/22 08/06/22 08/06/22 17:24 17:24 17:24 Urine Color Dark Yellow Urine Appearance Turbid Urine pH 5.5 Ur Specific [place] >= 1.030 H Urine Protein Trace Urine Glucose (UA) Negative Urine Ketones Trace Urine Blood Negative Urine Nitrite Negative Ur Leukocyte Esterase Small (1+) H Urine RBC 3-5 H Urine WBC 11-20 H Ur Squamous Epith Cells 11-20 Ur Transition Epith Cell Present Ur Renal Epithelial Cell Present Calcium Oxalate Crystal Present Urine Bacteria 1+ Hyaline Casts 6-10 Urine Test NEGATIVE Urine Opiates Screen POSITIVE H Urine Fentanyl Screen POSITIVE H Ur Barbiturates Screen Not Detected Ur Phencyclidine Scrn Not Detected Ur Amphetamines Screen Not Detected U Benzodiazepines Scrn Not Detected Urine Cocaine Screen POSITIVE H U Marijuana (THC) Screen Not Detected Medications Medications Current Medications Al Hydroxide/Mg Hydroxide (Magnesium Hydrox/Alum Hydrox 30 Ml Oral.Susp) 30 ml PO Q6H PRN PRN Reason: Heartburn/Nausea Buprenorphine/Naloxone (Buprenorphine/Naloxone 12/3 Mg Film) 1 film SUBLINGUAL DAILY MARISABEL Last Admin: 08/08/22 09:44 Dose: 1 film Buspirone HCl (Buspirone Hcl 10 Mg Tablet) 30 mg PO BID MARISABEL Last Admin: 08/08/22 09:44 Dose: 30 mg Chlorpromazine HCl (Chlorpromazine Hcl 25 Mg Tablet) 50 mg PO TID PRN PRN Reason: anxiety Last Admin: 08/07/22 21:30 Dose: 50 mg Clonidine HCl (Clonidine Hcl 0.1 Mg Tablet) 0.1 mg PO BID PRN; Protocol PRN Reason: anxiety Last Admin: 08/07/22 16:44 Dose: 0.1 mg Divalproex Sodium (Divalproex Sodium Er 250 Mg Tab.Er.24h) 250 mg PO BEDTIME MARIASBEL Last Admin: 08/07/22 21:24 Dose: 250 mg Famotidine (Famotidine 20 Mg Tablet) 20 mg PO BID [facility] Last Admin: 08/08/22 09:47 Dose: 20 mg Fluoxetine HCl (Fluoxetine Hcl 10 Mg Capsule) 30 mg PO DAILY [facility] Last Admin: 08/08/22 09:44 Dose: 30 mg Gabapentin (Gabapentin 300 Mg Capsule) 300 mg PO TID [facility] Last Admin: 08/08/22 09:44 Dose: 300 mg Hydroxyzine HCl (Hydroxyzine Hcl 25 Mg Tablet) 25 mg PO Q6H PRN PRN Reason: Anxiety Ibuprofen (Ibuprofen 600 Mg Tablet) 600 mg PO Q8H PRN PRN Reason: Pain, Mild (Pain Scale 1-3) Magnesium Hydroxide (Milk Of Magnesia 30 Ml Oral.Susp) 30 ml PO DAILY PRN PRN Reason: Constipation Nicotine (Nicotine 21 Mg Patch.Td24) 21 mg TRANSDERMA DAILY PRN PRN Reason: nicotine cravings Nicotine Polacrilex (Nicotine Polacrilex 2 Mg Gum) 4 mg BUCCAL Q2H PRN PRN Reason: Nicotine Cravings Last Admin: 08/07/22 18:38 Dose: 4 mg Prazosin HCl (Prazosin Hcl 1 Mg Capsule) 1 mg PO BEDTIME [facility]; Protocol Last Admin: 08/07/22 23:09 Dose: Not Given Trazodone HCl (Trazodone Hcl 100 Mg Tablet) 100 mg PO BEDTIME PRN PRN Reason: insomnia Last Admin: 08/07/22 21:30 Dose: 100 mg Allergies Allergies Allergy/AdvReac Type Severity Reaction Status Date / Time No Known Allergies Allergy Verified 07/26/22 02:54 Assessment & Plan Assessment & Plan (1) Adjustment disorder with mixed disturbance of emotions and conduct: Status: Acute Code(s): F43.25 - Adjustment disorder with mixed disturbance of emotions and conduct (2) Malingering: Status: Acute Code(s): Z76.5 - Malingerer [conscious simulation] (3) Bipolar 2 disorder: Status: Acute Code(s): F31.81 - Bipolar II disorder (4) Opioid use disorder: Status: Acute Code(s): F11.90 - Opioid use, unspecified, uncomplicated (5) Cocaine use disorder: Status: Acute Code(s): F14.10 - Cocaine abuse, uncomplicated (6) Opioid withdrawal: Status: Acute Code(s): F11.23 - Opioid dependence with withdrawal Assessment and Plan: resolved; on maintenance medication Plan Bella is a 32 y.o. Female with hx of Bipolar DO, IV/polysubstance abuse,hepatitis C who presents for depression and SI and the face of not taking medications and opioid/cocaine dependence. 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 Patient presented to ED about a week ago for abscess on external jugular after injecting IV drugs, received trial of antibiotics. She re-presented to the emergency room about a week later saying that she is sick of being a drug addict and wants to . Patient reported to the ED that she took an overdose of heroin intending to suicide but that it did not work. -will admit for safety and medication management as well as help with substance abuse/withdrawal 08/08 pt placed 3 day notice and asks for discharge today Pt apologetically explains that she lied about being suicidal in order to get a bed; she explains she had an argument with her boyfriend who kicked her out and she was in the street for a few days; she was feeling down, it was raining and she wanted a place to stay. She says I' know it was wrong...i feel bad about it... She denies that she took an overdose of heroin. Patient has reconciled with her boyfriend and asks for discharge. Pt reports she's actually been in good mood, no depression, no SI; of note, her affect is bright and disposition, calm and friendly unlike other past admissions where she typically emotionally distraught. Patient says she's been using less often, though is vague on frequency, and that suboxone helps; her boyfriend has remained sober which she says is also helping her use less. Patient says she really does not drink alcohol any more and has not for months. -Patient reiterates that she is hoping to discharge; she agrees to remain on the unit for medication management and be set up with outpatient providers to get back on Suboxone. -patient diagnosed with adjustment disorder which is now fully resolved as she has reconciled with her boyfriend. Patient is not in imminent risk for harm to self or others. Every other time she has presented she has in fact been depressed and suicidal, remaining so for days or weeks on the unit. Will continue meds restarted in the emergency room; will leave Depakote at 500 mg; patient has been stable without taking this medication and her diagnosis of bipolar remains provisional given that it has been too difficult to fully discern if patient has had discrete manic episodes outside of substance abuse and that ADHD, PTSD and substance abuse all have overlapping symptoms. Also patient has hep C and a lower dose of Depakote is preferable with this comorbid condition. Will not restart gabapentin at this time since it was used for help with alcohol cravings which she says she no longer has. Plan: CV 3 day Continue Prazosin 1 mg q.h.s. for nightmares Suboxone 16/4 mg daily Continue Prozac (restarted in ED) Continue BuSpar (restarted in ED) Depakote ER 500 mg q.h.s.; will likely titrate to previous dose of 750 mg Chlorpromazine 50 mg t.i.d. p.r.n. Clonidine HCl (Clonidine Hcl 0.1 Mg Tablet)? 0.1 mg PO Q4H PRN; Famotidine (Famotidine 20 Mg Tablet)? 20 mg PO BID MARISABEL -consider gabapentin (patient has been on 600 mg b.i.d. in the past) however past history patient reports she uses this for alcohol abstinence; she has been off this for few months and has not felt a cravings to drink alcohol. Since this medication has risk factors associated with it, especially in the context of substance abuse, will not restarted this time (did give a little for help with withdrawal on the unit); if patient becomes consistent with outpatient providers and finds the need for this medication, comic writer deems it most appropriate for her to discuss it at that time -considered restarting mirtazapine 7.5 mg q.h.s however patient has been in good mood without this I spent minutes with the patient and/or on the patient floor today, greater than?50% of which was spent counseling/coordinating care. Patient educated on: diagnosis, medication risk/benefits, substance abuse and therapeutic strategies Informed Consent: understands Reason for contiued inpatient stay Substantial Risk for: stable for discharge
[2022-08-08] MEDS: chlorproMAZINE HCl 25 MG TABLET 50 MG PO ×3 (11:14→21:39)
[2022-08-08 12:00] VITALS: PULSE 86
[2022-08-08] MEDS: cloNIDine HCL 0.1 MG TABLET PO ×2 (15:04→21:36)
[2022-08-08] MEDS: Nicotine Polacrilex 2 MG GUM 4 MG BUCCAL (15:04)
[2022-08-08 18:00] VITALS: BP 126/59; PULSE 76; RESP 18; TEMP 36.4; O2SAT 100
[2022-08-08] MEDS: Buprenorphine/Naloxone 4/1 mg FILM 1 FILM SUBLINGUAL (19:37)
[2022-08-08] MEDS: Divalproex Sodium ER 500 MG TAB.ER.24H PO (21:36)
[2022-08-08] MEDS: Prazosin HCL 1 MG CAPSULE PO (21:36)
[2022-08-08] MEDS: traZODone HCL 100 MG TABLET PO (21:42)
[2022-08-09 06:00] VITALS: BP 102/59; PULSE 64; RESP 18; TEMP 36.4; O2SAT 99
[2022-08-09] MEDS: FLUoxetine HCl 10 MG CAPSULE 30 MG PO (08:54)
[2022-08-09] MEDS: busPIRone HCl 10 MG TABLET 30 MG PO (08:54)
[2022-08-09] MEDS: Famotidine 20 MG TABLET PO (08:54)
--- NOTE | 2022-08-09 09:35 | P.DS_ITS ---
DS: Providers Provider Date of Service: 08/09/22 Date of admission: 08/06/22 18:31 Date of discharge: 08/09/22 Primary care physician: Rojas Schaefer MD Attending physician on admission: Grey Rosario Attending physician on discharge: Grey Rosario DS: Diagnosis Discharge Diagnosis (1) Adjustment disorder with mixed disturbance of emotions and conduct: Status: Acute (2) Malingering: Status: Acute (3) Bipolar 2 disorder: Status: Acute (4) Opioid use disorder: Status: Acute (5) Cocaine use disorder: Status: Acute (6) Opioid withdrawal: Status: Acute DS: Medications Discharge Medications Home Medications: Previous Rx's Medication Instructions Recorded buprenorphine 8 mg-naloxone 2 mg 2 film sublingual DAILY #0 ea 08/09/22 sublingual film (Suboxone) buspirone 30 mg tablet 30 mg PO BID 30 days #60 tabs 08/09/22 chlorpromazine 50 mg tablet 50 mg PO TID PRN anxiety 30 days 08/09/22 #90 tabs clonidine HCl 0.1 mg tablet 0.1 mg PO BID PRN anxiety 30 days 08/09/22 #60 tabs divalproex 500 mg tablet,extended 500 mg PO BEDTIME 30 days #30 tabs 08/09/22 release 24 hr famotidine 20 mg tablet 20 mg PO BID PRN GERD 30 days #60 08/09/22 tabs fluoxetine 10 mg capsule 30 mg PO DAILY 30 days #90 caps 08/09/22 nicotine (polacrilex) 4 mg gum 4 mg buccal Q2H PRN nicotine 08/09/22 cravings 30 days #100 ea nicotine 21 mg/24 hr daily 1 patch topical DAILY PRN nicotine 08/09/22 transdermal patch cravings 28 days #28 ea prazosin 1 mg capsule 1 mg PO BEDTIME 30 days #30 caps 08/09/22 trazodone 100 mg tablet 100 mg PO BEDTIME PRN insomnia 30 08/09/22 days #30 tabs Mental Status Exam Mental Status Exam Narrative: Pt is alert and oriented; behavior is cooperative, friendly; dressed in casual attire with combed hair and adequate hygiene; mood is described as good and affect congruent, bright, warm; eye contact appropriate; Speech is normal rate, volume and prosody and not pressured; no psychomotor retardation/agitation present; thought process is organized and goal directed; Thought content is on discharge; denies SI/HI; otherwise pertinent to relevant topics and without any delusional content, paranoid ideations or grandiosity; There is no evidence of perceptual disturbance. ?Patients insight and judgment is fair and adequate. Data Data Completed and Pending Completed studies during hospitalization [Text1]: 08/06/22 08/06/22 08/06/22 01:24 01:28 01:28 WBC 5.5 RBC 4.16 L D Hgb 11.8 L D Hct 36.6 L D MCV 88.0 MCH 28.4 MCHC 32.2 RDW 14.3 Plt Count 255 D MPV 9.9 Immature Gran % (Auto) 0.5 H Neut % (Auto) 61.1 Lymph % (Auto) 30.8 [place] % (Auto) 6.4 Eos % (Auto) 0.7 Baso % (Auto) 0.5 Lymph # (Auto) 1.7 [place] # (Auto) 0.4 Eos # (Auto) 0.0 Baso # (Auto) 0.0 Abs Immat Gran (auto) 0.03 Absolute Neuts (auto) 3.3 Absolute Nucleated RBC 0.000 Nucleated RBC % (auto) 0.0 Sodium 136 Potassium 3.8 Chloride 100 Carbon Dioxide 22 Anion Gap 18 BUN 10 Creatinine 0.84 Estim Creat Clear Calc 79.5 Estimated GFR > 60 Random Glucose 89 Calcium 9.3 Total Bilirubin 0.6 AST 57 H ALT 46 H Alkaline Phosphatase 116 Total Protein 7.3 D Albumin 4.0 D Urine Color Urine Appearance Urine pH Ur Specific Tow Urine Protein Urine Glucose (UA) Urine Ketones Urine Blood Urine Nitrite Ur Leukocyte Esterase Urine RBC Urine WBC Ur Squamous Epith Cells Ur Transition Epith Cell Ur Renal Epithelial Cell Calcium Oxalate Crystal Urine Bacteria Hyaline Casts Urine Test Urine Opiates Screen Urine Fentanyl Screen Ur Barbiturates Screen Ur Phencyclidine Scrn Ur Amphetamines Screen U Benzodiazepines Scrn Urine Cocaine Screen U Marijuana (THC) Screen Ethyl Alcohol < 10 COVID-19 (ALBA) Negative COVID-19 Clin Com See Note 08/06/22 08/06/22 08/06/22 17:24 17:24 17:24 WBC RBC Hgb Hct MCV MCH MCHC RDW Plt Count MPV Immature Gran % (Auto) Neut % (Auto) Lymph % (Auto) [place] % (Auto) Eos % (Auto) Baso % (Auto) Lymph # (Auto) [place] # (Auto) Eos # (Auto) Baso # (Auto) Abs Immat Gran (auto) Absolute Neuts (auto) Absolute Nucleated RBC Nucleated RBC % (auto) Sodium Potassium Chloride Carbon Dioxide Anion Gap BUN Creatinine Estim Creat Clear Calc Estimated GFR Random Glucose Calcium Total Bilirubin AST ALT Alkaline Phosphatase Total Protein Albumin Urine Color Dark Yellow Urine Appearance Turbid Urine pH 5.5 Ur Specific Tow >= 1.030 H Urine Protein Trace Urine Glucose (UA) Negative Urine Ketones Trace Urine Blood Negative Urine Nitrite Negative Ur Leukocyte Esterase Small (1+) H Urine RBC 3-5 H Urine WBC 11-20 H Ur Squamous Epith Cells 11-20 Ur Transition Epith Cell Present Ur Renal Epithelial Cell Present Calcium Oxalate Crystal Present Urine Bacteria 1+ Hyaline Casts 6-10 Urine Test NEGATIVE Urine Opiates Screen POSITIVE H Urine Fentanyl Screen POSITIVE H Ur Barbiturates Screen Not Detected Ur Phencyclidine Scrn Not Detected Ur Amphetamines Screen Not Detected U Benzodiazepines Scrn Not Detected Urine Cocaine Screen POSITIVE H U Marijuana (THC) Screen Not Detected Ethyl Alcohol COVID-19 (ALBA) COVID-19 Clin Com 08/06/22 17:24 Urine clean catch - Urine nunn top Urine Culture - Final DS: Summary Hospital Course Hospital Course: HPI: Bella is a 32 y.o. Female with hx of Bipolar DO, IV/polysubstance abuse,hepatitis C who presents for depression and SI and the face of not taking medications and opioid/cocaine dependence. 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 Patient presented to ED about a week ago for abscess on external jugular after injecting IV drugs, received trial of antibiotics.? She re-presented to the emergency room about a week later saying that she? is sick of being a drug addict and wants to .? Patient reported to the ED that she took an overdose of heroin intending to suicide but that it did not work. -will admit for safety and medication management as well as help with substance abuse/withdrawal Hospital course: 08/08 pt placed 3 day notice and asks for discharge today Pt apologetically explains that she lied about being suicidal in order to get a bed; she explains she had an argument with her boyfriend who kicked her out and she was in the street for a few days; she was feeling down, it was raining and she wanted a place to stay. She says I' know it was wrong...i feel bad about it... She denies that she took an overdose of heroin. Patient has reconciled with her boyfriend and asks for discharge. Pt reports she's actually been in good mood, no depression, no SI; of note, her affect is bright and disposition, calm and friendly unlike other past admissions where she typically emotionally distraught. Patient says she's been using less often, though is vague on frequency, and that suboxone helps; her boyfriend has remained sober which she says is also helping her use less. Patient says she really does not drink alcohol any more and has not for months. -Patient reiterates that she is hoping to discharge; she agrees to remain on the unit for medication management and be set up with outpatient providers to get back on Suboxone. -patient diagnosed with adjustment disorder which is now fully resolved as she has reconciled with her boyfriend.? Patient is not in imminent risk for harm to self or others.? Every other time she has presented she has in fact been depressed and suicidal, remaining so for days or weeks on the unit.? Will continue meds restarted in the emergency room; will leave Depakote at 500 mg; patient has been stable without taking this medication and her diagnosis of bipolar remains provisional given that it has been too difficult to fully dis cern if patient has had discrete manic episodes outside of substance abuse and that ADHD, PTSD and substance abuse all have overlapping symptoms.? Also patient has hep C and a lower dose of Depakote is preferable with this comorbid condition.? Will not restart gabapentin at this time since it was used for help with alcohol cravings which she says she no longer has. -patient has a long history of severe polysubstance abuse and subsequent mood lability and remains at risk for relapse and decompensating at some point; however this is a chronic issue that will not resolve with further inpatient s argelia but requires sobriety and commitment to outpatient therapy and treatment, something with which patient agrees, but has struggled to engage. Patient is currently in a good mood and has been for several months, despite intermittently taking her medication. She denies any SI and admits to malingering to get a bed for the night. Patient is restarted on medication she finds helpful and back on Suboxone which will help her with sobriety. She is not in imminent risk for harm to self or others and her request for discharge honored. Time spent discussing smoking cessation with patient: 3 to 10 minutes Status at Discharge Functional status at discharge: independent ambulation Overall status at discharge: patient is back to baseline Time Spent with Patient Time attestation: Total time spent providing and/or coordinating discharge services: Time spent: Less than 30 minutes Discharge Plan Discharge Patient Disposition: Home, Self-Care Discharge Diagnosis: Adjustment disorder with disturbance of mood and conduce in full remission Referrals: Suboxone: Santa Silvestre APRN [Other] - 08/09/22 10:45 am (This appointment is in-person) Psychiatric Med Management: Grey Aviles [Other] - 08/29/22 1:00 pm (This appointment is in-person) Rojas Schaefer MD [Primary Care Provider] - 1 Week (PT. STATES SHE WILL F/U WITH [facility]) Discharge Medications: New nicotine (polacrilex) 4 mg gum 4 mg buccal Q2H PRN (Reason: nicotine cravings) 30 Days Qty: 100 0RF divalproex 500 mg Tablet Extended Release 24 Hr 500 mg PO BEDTIME 30 Days Qty: 30 0RF Continued prazosin 1 mg Capsule 1 mg PO BEDTIME 30 Days Qty: 30 0RF buspirone 30 mg tablet 30 mg PO BID 30 Days Qty: 60 0RF nicotine 21 mg/24 hr patch 24 hour 1 patch topical DAILY PRN (Reason: nicotine cravings) 28 Days Qty: 28 0RF Rx Instructions: remove at bedtime fluoxetine 10 mg Capsule 30 mg PO DAILY 30 Days Qty: 90 0RF chlorpromazine 50 mg tablet 50 mg PO TID PRN (Reason: anxiety) 30 Days Qty: 90 0RF Rx Instructions: May also take up to 2 tabs as needed for anxiety TID Changed clonidine HCl 0.1 mg tablet 0.1 mg PO BID PRN (Reason: anxiety) 30 Days Qty: 60 0RF famotidine 20 mg Tablet 20 mg PO BID PRN (Reason: GERD) 30 Days Qty: 60 0RF trazodone 100 mg tablet 100 mg PO BEDTIME PRN (Reason: insomnia) 30 Days Qty: 30 0RF Discontinued chlorpromazine 100 mg Tablet 100 mg PO BEDTIME 30 Days Qty: 30 0RF divalproex [Depakote ER] 250 mg Tablet Extended Release 24 Hr 750 mg PO BEDTIME 30 Days Qty: 90 0RF mirtazapine 7.5 mg Tablet 7.5 mg PO BEDTIME 30 Days Qty: 30 0RF buprenorphine-naloxone 8-2 mg film 1 film sublingual TID Qty: 24 0RF No Action buprenorphine-naloxone [Suboxone] 8-2 mg film 1 film sublingual TID Qty: 22 0RF Discharge Orders: Discharge Order (Routine); Ordered 08/09/22 Ordered By: Grey Rosario Diet: Regular diet Activity on Discharge: As tolerated Stand Alone Forms: Patient Portal Discharge page, Community Support Other Ambulatory Orders: Liver Panel (Routine) Timeframe: [id number] Facility: [facility] - Location: Laboratory Ordered By: Grey Rosario Valproate (Routine) Timeframe: [id number] Facility: [facility] - Location: Laboratory Ordered By: Grey Rosario Care Plan Goals: Maintain mood and safe behaviors Take medications as prescribed Continue to pursue sobriety Practice coping skills Continue with outpatient providers and reach out to them as needed Health Concerns: Mood stability and behaviors Sobriety GERD Plan of Treatment: Follow up with your PCP, psychiatric provider and other outpatient providers regarding above concerns Take medications as prescribed Assessment: Risk assessment at time of discharge:? Patient was interviewed prior to discharge and found to be fully oriented and without any SI or HI. Patient has insight and demonstrates good judgment in terms of wanting to pursue treatment. Patient is not in imminent risk of harm to self or others and has a safety plan that includes presenting to the closest ER or calling 911 if feeling unsafe.? Patient has been observed closely by nursing and unit staff throughout admission; patient has not engaged in any behaviors that suggest dangerousness to self or others and has demonstrated appropriate behaviors and impulse control Discharge Date/Time: 08/09/22 11:15
== END 2022-08-09 11:15 | disposition home or self-care (01) | DRG 753 ==
LOC: HO.ED 16:20 → HO.PM5 18:39
PROVIDERS: Physician Assistant; Admitting Provider Psychiatry & Neurology Psychiatry; Emergency Provider Student in an Organized Health Care Education/Training Program; PCP Internal Medicine; Visit Provider Psychiatry & Neurology Psychiatry
DX: F31.81 Bipolar II disorder (principal); R45.851 Suicidal ideations; Z91.14 Patient's other noncompliance with medication regimen; F11.23 Opioid dependence with withdrawal; F14.10 Cocaine abuse, uncomplicated; F17.210 Nicotine dependence, cigarettes, uncomplicated; F41.1 Generalized anxiety disorder; Z86.19 Personal history of other infectious and parasitic diseases; Z76.5 Malingerer [conscious simulation]; Z20.822 Contact with and (suspected) exposure to COVID-19; Z71.6 Tobacco abuse counseling; Z79.899 Other long term (current) drug therapy
CPT/HCPCS: 80053; 80307; 81001; 81025; 82077; 85025; 87086; 87635; 93005; 99285

== ENCOUNTER → 2022-08-09 10:40 | Outpatient (BNVA) | payer OTHER, SELFPAY | PROVIDERS: PCP Internal Medicine; Visit Provider Nurse Practitioner Psychiatric/Mental Health | DX: F11.20 Opioid dependence, uncomplicated (principal); Z51.81 Encounter for therapeutic drug level monitoring; Z79.899 Other long term (current) drug therapy | CPT/HCPCS: 80305; 99212 ==

== ENCOUNTER → 2022-08-15 10:18 | Outpatient (BNVA) | payer OTHER, SELFPAY | PROVIDERS: PCP Internal Medicine; Visit Provider Nurse Practitioner Psychiatric/Mental Health | DX: Z51.81 Encounter for therapeutic drug level monitoring (principal); F11.20 Opioid dependence, uncomplicated; F14.10 Cocaine abuse, uncomplicated | CPT/HCPCS: 99212 ==

== ENCOUNTER 2022-09-04 09:01 | Inpatient (IN) | payer OTHER, SELFPAY ==
--- NOTE | 2022-09-04 09:07 | ED.PSYCH ---
HPI - Psych General Chief Complaint: Psychiatric Symptoms Stated Complaint: SI Time Seen by Provider: 09/04/22 09:05 Source: patient and old records reviewed Mode of arrival: ambulatory Limitations: other (slightly uncooperative) History of Present Illness HPI Narrative: 32 yo female with hx of bipolar, substance abuse, ETOH abuse reports using drugs and being homeless - has SI. States she is taking her medications. She states I need to lay down, I am not doing blood work or anything right now until I sleep. complaint: suicidal ideation, feels depressed and substance abuse Onset (ago): day(s) (few) Duration: getting worse History of same: Yes Relieving factors: none Exacerbating factors: drug use Context: recent drug abuse Associated psychiatric symptoms: depression and suicidal ideation Associated symptoms: denies other symptoms Treatments prior to arrival: none If self harm: admits thoughts of self harm Related Data Previous Rx's Medication Instructions Recorded buspirone 30 mg tablet 30 mg PO BID 30 days #60 tabs 08/09/22 chlorpromazine 50 mg tablet 50 mg PO TID PRN anxiety 30 days 08/09/22 #90 tabs clonidine HCl 0.1 mg tablet 0.1 mg PO BID PRN anxiety 30 days 08/09/22 #60 tabs divalproex 500 mg tablet,extended 500 mg PO BEDTIME 30 days #30 tabs 08/09/22 release 24 hr famotidine 20 mg tablet 20 mg PO BID PRN GERD 30 days #60 08/09/22 tabs fluoxetine 10 mg capsule 30 mg PO DAILY 30 days #90 caps 08/09/22 nicotine (polacrilex) 4 mg gum 4 mg buccal Q2H PRN nicotine 08/09/22 cravings 30 days #100 ea nicotine 21 mg/24 hr daily 1 patch topical DAILY PRN nicotine 08/09/22 transdermal patch cravings 28 days #28 ea prazosin 1 mg capsule 1 mg PO BEDTIME 30 days #30 caps 08/09/22 trazodone 100 mg tablet 100 mg PO BEDTIME PRN insomnia 30 08/09/22 days #30 tabs buprenorphine 8 mg-naloxone 2 mg 1 film sublingual TID #22 ea 08/15/22 sublingual film (Suboxone) Allergies Allergy/AdvReac Type Severity Reaction Status Date / Time No Known Allergies Allergy Verified 08/15/22 10:32 Review of Systems Review of Systems: Constitutional : No Fever, No Chills ENT/Mouth : No Ear Pain, No Nasal Congestion, No sore throat Eyes: No Eye Pain, No Swelling, No Redness Cardiovascular : No Chest Pain, No SOB Respiratory : No Cough, No Sputum, No Dyspnea Gastrointestinal : No Nausea, No Vomiting, No Diarrhea, No Hematochezia, No Melena Genitourinary : No Dysuria, No Urinary Frequency, No Hematuria Musculoskeletal : No Myalgias Skin : No Skin Lesions, No rash Neuro : No Weakness, No Numbness, No Paresthesias, No Dizziness, No Headache Psych : positive Anxiety, positive Depression, positive SI no HI Heme/Lymph: No Lymphadenopathy Endocrine : No Polyuria, No Polydipsia All other systems reviewed and are negative PMFSH Past Medical History Attestation statement: The following information was validated with the patient. Medical History Alcohol dependence Alcohol use disorder, severe, dependence Alcohol use disorder, severe, dependence Bipolar 2 disorder Cocaine use Cocaine use disorder Cocaine use disorder Depression JOANN (generalized anxiety disorder) History of hepatitis C IV drug abuse MDD (major depressive disorder), recurrent episode, moderate Opiate abuse, continuous Opioid use disorder Opioid use disorder, moderate, dependence Polysubstance abuse Smoker Suicidal ideation Surgical History S/P laparoscopic appendectomy Family History Family History Mother Polysubstance abuse Father Polysubstance abuse Social History Social History Household Members: Significant Other Household Members Other:: ex boyfriend Housing: House Housing Other:: Rented a room with ex in an apartment Do you presently have visiting nurse or other home services: No Alcohol intake: current Alcohol intake frequency: does not drink Alcohol type: hard liquor Patient Tobacco Use Status: Current everyday Tobacco user Tobacco use type: Cigarette Cigarette Packs Per Day: 1 Cigarettes Per Day: 20.0 Years Smoked: 18 e-Cigarette/Vaping Use: Currently Using Second Hand Smoke Exposure: Yes Substance Use Type: Heroin Substance Use Frequency: Daily Last Used Substance: Just Prior to Admission Advance Directives: No Advance Directives Information Provided: No service: No Current occupational status: unemployed Sexual orientation: Did not discuss Physical Exam Vital Signs: Vital Signs: Last Vital Signs Temp 97.6 F 09/04/22 10:59 Pulse 65 09/04/22 14:10 Resp 16 09/04/22 14:10 BP 107/65 09/04/22 14:10 Pulse Ox 95 09/04/22 14:10 O2 Del Method 09/04/22 14:10 BMI result Body Mass Index 21.2 Appearance: Alert. Oriented X3. No acute distress. slightly uncooperative, does not want to do anything until she lays down. Appears to be under the influence Eyes: Pupils equal, round and reactive to light. 2mm ENT: Pharynx normal. Neck: Normal inspection. Neck supple. CVS: Normal heart rate and rhythm. Pulses normal. Respiratory: No respiratory distress. Breath sounds normal. Abdomen: Soft and non-tender. Skin: Skin warm and dry. Normal skin color. Normal skin turgor. active track march on both arms - no signs of infection Extremities: No lower extremity edema. No calf ttp Neuro: Oriented X 3. No motor deficit. No sensory deficit. CN 2-12 intact Course Course Course Narrative: Physician observation started at 1243pm Patient placed in physician observation because the patient needed more time for [facility] to assess the need for psych admission. At the time observation was started the patient's vitals were stable, patient is alert and oriented, Neuro: nonfocal, CV RRR, Lungs clear inpatiet bed search per N MDM - Psych MDM Narrative Medical decision making narrative: 32 yo female with hx of bipolar, substance abuse, ETOH abuse here with c/o SI and substance abuse - refusing labs. At this time will obtain labs, UA, BHN consult. Lab Data Result diagrams: 09/04/22 10:21 09/04/22 10:21 Labs: Lab Results 09/04/22 09/04/22 09/04/22 Range/Units 09:32 10:21 10:21 WBC 6.5 (4.8-10.8) X10*3/uL RBC 3.76 L (4.20-5.50) X10*6/uL Hgb 10.5 L (12.0-16.0) g/dl Hct 32.8 L (37.0-47.0) % MCV 87.2 (80.0-98.0) fL MCH 27.9 (27.0-33.0) pg MCHC 32.0 (31.0-35.0) g/dl RDW 15.4 (11.0-16.0) % Plt Count 340 D (160-400) X10*3/uL MPV 9.8 (9.4-12.3) fL Immature Gran % (Auto) 0.2 (0.0-0.4) % Neut % (Auto) 59.9 (45-73) % Lymph % (Auto) 27.6 (20-40) % Carroll % (Auto) 8.6 (2-11) % Eos % (Auto) 3.2 (0-4) % Baso % (Auto) 0.5 (0-2) % Lymph # (Auto) 1.8 (1.2-4.9) X10*3/uL Carroll # (Auto) 0.6 (0.1-1.2) X10*3/uL Eos # (Auto) 0.2 (0.0-0.4) X10*3/uL Baso # (Auto) 0.0 (0.0-0.2) X10*3/uL Abs Immat Gran (auto) 0.01 (0.00-0.03) X10*3/uL Absolute Neuts (auto) 3.9 (2.0-8.3) x10*3/uL Absolute Nucleated RBC 0.000 (0.0-0.012) X10*3/uL Nucleated RBC % (auto) 0.0 (0.0-0.2) /100WBC Sodium 141 (135-145) mmol/L Potassium 4.3 (3.3-5.1) mmol/L Chloride 108 (96-108) mmol/L Carbon Dioxide 22 (22-29) mmol/L Anion Gap 15 (12-20) BUN 9 (9-16) mg/dL Creatinine 0.67 (0.5-1.4) mg/dL Estim Creat Clear Calc 99.7 Estimated GFR > 60 Random Glucose 104 (60-115) mg/dL Calcium 9.1 (8.4-10.2) mg/dL Total Bilirubin 0.3 (0.0-1.0) mg/dL Direct Bilirubin 0.2 (0.0-0.5) mg/dL AST 38 H (5-31) U/L ALT 31 (0-31) U/L Alkaline Phosphatase 78 D (39-117) U/L Total Protein 6.5 (6.5-8.0) g/dL Albumin 3.5 (3.5-5.0) g/dL Valproic Acid 12.8 L (50.0-100.0) mcg/mL Ethyl Alcohol < 10 mg/dL COVID-19 (ALBA) Negative (Negative) COVID-19 Clin Com See Note Discharge Plan Discharge Clinical Impression: Opioid use disorder, Polysubstance abuse, Suicidal ideation Patient Disposition: Still a Patient Prescriptions: No Action nicotine (polacrilex) 4 mg gum 4 mg buccal Q2H PRN (Reason: nicotine cravings) 30 Days Qty: 100 0RF divalproex 500 mg Tablet Extended Release 24 Hr 500 mg PO BEDTIME 30 Days Qty: 30 0RF clonidine HCl 0.1 mg tablet 0.1 mg PO BID PRN (Reason: anxiety) 30 Days Qty: 60 0RF prazosin 1 mg Capsule 1 mg PO BEDTIME 30 Days Qty: 30 0RF famotidine 20 mg Tablet 20 mg PO BID PRN (Reason: GERD) 30 Days Qty: 60 0RF trazodone 100 mg tablet 100 mg PO BEDTIME PRN (Reason: insomnia) 30 Days Qty: 30 0RF buspirone 30 mg tablet 30 mg PO BID 30 Days Qty: 60 0RF nicotine 21 mg/24 hr patch 24 hour 1 patch topical DAILY PRN (Reason: nicotine cravings) 28 Days Qty: 28 0RF Rx Instructions: remove at bedtime fluoxetine 10 mg Capsule 30 mg PO DAILY 30 Days Qty: 90 0RF chlorpromazine 50 mg tablet 50 mg PO TID PRN (Reason: anxiety) 30 Days Qty: 90 0RF Rx Instructions: May also take up to 2 tabs as needed for anxiety TID buprenorphine-naloxone [Suboxone] 8-2 mg film 1 film sublingual TID Qty: 22 0RF
[2022-09-04 10:16] LABS: COVID-19 Test Negative (Negative); IDNOW Serial# 55D5AD1C
[2022-09-04 10:17] VITALS: BP 124/55; BP 146/78; PULSE 66; PULSE 70; RESP 18; TEMP 36.9; O2SAT 96; O2SAT 99; BMI 21.2
[2022-09-04 10:25] LABS: MANUAL DIFF FLAG NO
[2022-09-04 10:26] LABS: Basophils Percent Auto 0.5 % (0-2); Eosinophils Absolute Auto 0.2 X10*3/uL (0.0-0.4); Eosinophils Percent Auto 3.2 % (0-4); Hematocrit 32.8 % (37.0-47.0); Hemoglobin 10.5 g/dl (12.0-16.0); Imm Gran Abs Auto 0.01 X10*3/uL (0.00-0.03); Imm Gran Pct Auto 0.2 % (0.0-0.4); Lymphocytes Absolute Auto 1.8 X10*3/uL (1.2-4.9); Lymphocytes Percent Auto 27.6 % (20-40); Mean Corpuscular Hemoglobin 27.9 pg (27.0-33.0); Mean Corpuscular Volume 87.2 fL (80.0-98.0); Mean Platelet Volume 9.8 fL (9.4-12.3); Monocytes Absolute Auto 0.6 X10*3/uL (0.1-1.2); Monocytes Percent Auto 8.6 % (2-11); Neutrophils Absolute Auto 3.9 x10*3/uL (2.0-8.3); Neutrophils Percent Auto 59.9 % (45-73); Platelet Count 340 X10*3/uL (160-400); Red Blood Count 3.76 X10*6/uL (4.20-5.50); Red Cell Distribution Width 15.4 % (11.0-16.0); White Blood Count 6.5 X10*3/uL (4.8-10.8)
[2022-09-04 10:50] LABS: Alanine Aminotransferase 31 U/L (0-31); Albumin Level 3.5 g/dL (3.5-5.0); Alkaline Phosphatase 78 U/L (39-117); Anion Gap 15 (12-20); Aspartate Amino Transferase 38 U/L (5-31); Bilirubin Direct 0.2 mg/dL (0.0-0.5); Bilirubin Total 0.3 mg/dL (0.0-1.0); Blood Urea Nitrogen 9 mg/dL (9-16); Calcium 9.1 mg/dL (8.4-10.2); Carbon Dioxide 22 mmol/L (22-29); Chloride 108 mmol/L (96-108); Creatinine Clr Calc Pharmacy 99.7; Estimated Glomerular Filt Rate > 60; Ethanol < 10 mg/dL; Glucose Random 104 mg/dL (60-115); Potassium 4.3 mmol/L (3.3-5.1); Sodium 141 mmol/L (135-145); Total Protein 6.5 g/dL (6.5-8.0)
[2022-09-04 10:59] VITALS: BP 105/35; PULSE 66; RESP 17; TEMP 36.4; O2SAT 96
[2022-09-04 11:08] LABS: Valproate 12.8 mcg/mL (50.0-100.0)
[2022-09-04 14:10] VITALS: BP 107/65; PULSE 65; RESP 16; O2SAT 95
[2022-09-04 16:12] LABS: UPreg QC Valid YES; Urine Pregnancy NEGATIVE (NEGATIVE)
[2022-09-04 16:25] LABS: Amphetamine Screen Urine Not Detected (Not Detect); Barbiturates, Urine Not Detected (Not Detect); Benzodiazepines Screen Urine Not Detected (Not Detect); Cannabinoid Screen Urine Not Detected (Not Detect); Cocaine Screen Urine POSITIVE (Not Detect); Fentanyl, urine POSITIVE (Not Detect); Opiate Screen Urine POSITIVE (Not Detect); Phencyclidine Screen Urine Not Detected (Not Detect)
[2022-09-05 05:28] VITALS: BP 110/72; PULSE 67; RESP 16; TEMP 36.5; O2SAT 96
--- NOTE | 2022-09-05 06:17 | PC.NURSE ---
Patient slept though the night, no distress observed/reported, med rec completed/pending provider's approval, disposition per [facility] is section 12 inpatient bed search, behavior non concerning, VSS, will continue to monitor.
--- NOTE | 2022-09-05 13:01 | ECG_ITS ---
Test Reason : Blood Pressure : / mmHG Vent. Rate : 087 BPM Atrial Rate : 087 BPM P-R Int : 134 ms QRS Dur : 082 ms QT Int : 372 ms P-R-T Axes : 062 074 043 degrees QTc Int : 447 ms Normal sinus rhythm Normal ECG When compared with ECG of 06-AUG-2022 15:03, No significant change was found Referred By: Jessica Pringle Electronically Signed By:ROJAS SALINAS
--- NOTE | 2022-09-05 18:48 | PHA.MEDREC ---
Pharmacy Consult ? Medication Reconciliation RN has completed the medication reconciliation, pharmacy reviewed.
[2022-09-05 19:33] LABS: Valproate 5.4 mcg/mL (50.0-100.0)
[2022-09-05] MEDS: Prazosin HCL 1 MG CAPSULE PO (21:14)
[2022-09-05] MEDS: Divalproex Sodium ER 500 MG TAB.ER.24H PO (21:16)
--- NOTE | 2022-09-05 22:30 | PC.ADMIT ---
Pt is a 32 year old female, known to m5 admitted at 1850. Pt is covid negative. Tox screen pos for Benzodiazepines, cocaine, heroin. Pt reported taking 5 bags of heroin in order to take her life. Pt reports she is very depressed and is tired of living the way I am. Pt reports reason for SI is I'm tired of doing drugs and cannot stop, I can't keep myself safe. Pt is irritable and requested to go right to bed. Admission assessment is based on crisis eval, pt too tired to participate. Pt denies AH/VH/HI. Pt reports being safe on the unit. Provider notified and orders are placed. Monitor for safety, begin treatment.
--- NOTE | 2022-09-05 22:36 | PC.NURSE ---
Pt signed a three day notice today, 09/05/2022
[2022-09-06 09:56] LABS: Estimated Average Glucose 105 mg/dL; Hemoglobin A1c % 5.3 %
[2022-09-06 09:58] LABS: Cholesterol 171 mg/dL; HDL Cholesterol 49 mg/dL; LDL Cholesterol Calculated 100 mg/dl; Magnesium 2.1 mg/dL (1.6-2.6); Triglycerides 112 mg/dL
[2022-09-06 10:19] LABS: Free T4 (Free Thyroxine) 1.05 ng/dL (0.71-1.85)
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
[2022-09-06 11:00] LABS: Folate 9.9 ng/mL (> or = 4.0); Vitamin B12 599 pg/mL (200-900)
[2022-09-06] MEDS: Buprenorphine/Naloxone 4/1 mg FILM 1 FILM SUBLINGUAL ×2 (14:37→16:43)
[2022-09-06] MEDS: FLUoxetine HCl 10 MG CAPSULE 30 MG PO (14:37)
[2022-09-06] MEDS: chlorproMAZINE HCl 25 MG TABLET 50 MG PO (19:28)
[2022-09-06] MEDS: Prazosin HCL 1 MG CAPSULE PO (21:27)
[2022-09-06] MEDS: Divalproex Sodium ER 500 MG TAB.ER.24H PO (21:28)
[2022-09-06 21:30] VITALS: BP 114/58; PULSE 70
[2022-09-06] MEDS: traZODone HCL 100 MG TABLET PO (21:33)
[2022-09-07] MEDS: Buprenorphine/Naloxone 12/3 mg FILM 1 FILM SUBLINGUAL (14:26)
[2022-09-07] MEDS: FLUoxetine HCl 10 MG CAPSULE 30 MG PO (14:26)
[2022-09-07] MEDS: chlorproMAZINE HCl 25 MG TABLET 50 MG PO ×2 (14:26→18:53)
[2022-09-07 18:45] VITALS: BP 120/65; PULSE 118; TEMP 36.6; O2SAT 99
[2022-09-07] MEDS: cloNIDine HCL 0.1 MG TABLET PO (18:53)
[2022-09-07 20:15] VITALS: BP 118/72; PULSE 72
[2022-09-07] MEDS: Divalproex Sodium ER 500 MG TAB.ER.24H PO (20:37)
[2022-09-07] MEDS: traZODone HCL 100 MG TABLET PO (20:37)
[2022-09-07] MEDS: Prazosin HCL 1 MG CAPSULE PO (20:37)
--- NOTE | 2022-09-07 20:59 | PC.NURSE ---
Patient refused Suboxone, Dr. Art notified.
--- NOTE | 2022-09-07 22:39 | HO.PSYCHPN ---
Subjective Subjective Date of Service: 09/07/22 Reason For Visit: SI Interim History: Patient continues to deny SI and very much wants discharge. She does however understand investigative writer's concern for her safety her high risk of relapse. Patient said she is willing to get on subluxated and that that would be very helpful thing for her sobriety ; she says I will totally do that... I am so ready to be done with this [addiction]... Patient remains adamant about discharge as soon as a 3 day notice is up however is also open to help with her addiction. She asks about gabapentin however investigative writer reviews history and sees the patient has been off this for sometime and explained that given her struggles with addiction this is not an ideal medication for her. Patient apologizes for lying about her suicidality; she understands that it makes her team very confused about how to best help her be safe. Mental Status Exam Mental Status Exam Narrative: Pt is alert and oriented; behavior is cooperative, calm and friendly; dressed in casual attire with unkempt hair, improved hygiene; mood is described as ok and affect calm, congruent; eye contact appropriate; Speech is normal rate, volume and prosody and not pressured; no psychomotor retardation present; thought process is goal directed; Thought content is on discharge, using but also on treatment; denies SI/HI; otherwise pertinent to relevant topics and without any delusional content, paranoid ideations or grandiosity; There is no evidence of perceptual disturbance. ?Patients insight and judgment are impaired but improved. Diagnostics Vital Signs (24Hr): Vital Signs - 24 hr 09/07/22 18:45 09/07/22 20:15 Temperature 97.9 F Pulse Rate 118 H 72 Blood Pressure 120/65 118/72 Pulse Oximetry 99 Oxygen Delivery Method Room Air BMI result Body Mass Index 21.2 Labs Results: 09/04/22 10:21 09/04/22 10:21 Labs: Laboratory Results - last 48 hr 09/06/22 09/06/22 09/06/22 08:58 08:58 08:58 Estimat Average Glucose 105 Hemoglobin A1c % 5.3 Magnesium 2.1 Triglycerides 112 Cholesterol 171 LDL Cholesterol, Calc 100 HDL Cholesterol 49 D Vitamin B12 599 Folate 9.9 TSH 0.10 L Free T4 1.05 Medications Medications Current Medications Acetaminophen (Acetaminophen 325 Mg Tablet) 650 mg PO Q6H PRN PRN Reason: Headache/Pain Mild Scale (1-3) Al Hydroxide/Mg Hydroxide (Magnesium Hydrox/Alum Hydrox 30 Ml Oral.Susp) 30 ml PO Q6H PRN PRN Reason: Heartburn/Nausea Buprenorphine/Naloxone (Buprenorphine/Naloxone 8/2 Mg Tab.Subl) 1 tab SUBLINGUAL TID [facility] Chlorpromazine HCl (Chlorpromazine Hcl 25 Mg Tablet) 50 mg PO TID PRN PRN Reason: Agitation Last Admin: 09/07/22 18:53 Dose: 50 mg Clonidine HCl (Clonidine Hcl 0.1 Mg Tablet) 0.1 mg PO BID PRN; Protocol PRN Reason: anxiety Last Admin: 09/07/22 18:53 Dose: 0.1 mg Divalproex Sodium (Divalproex Sodium Er 500 Mg Tab.Er.24h) 500 mg PO BEDTIME [facility]IS[facility]EL Last Admin: 09/07/22 20:37 Dose: 500 mg Famotidine (Famotidine 20 Mg Tablet) 20 mg PO BID PRN PRN Reason: Gastric Reflux Fluoxetine HCl (Fluoxetine Hcl 10 Mg Capsule) 30 mg PO DAILY [facility] Last Admin: 09/07/22 14:26 Dose: 30 mg Magnesium Hydroxide (Milk Of Magnesia 30 Ml Oral.Susp) 30 ml PO DAILY PRN PRN Reason: Constipation Nicotine (Nicotine 21 Mg Patch.Td24) 21 mg TRANSDERMA DAILY PRN PRN Reason: nicotine cravings Pharmacy Consult (Consult Rx Perform Med Rec) 1 each MISCELLANE ONCE PRN PRN Reason: Consult order Prazosin HCl (Prazosin Hcl 1 Mg Capsule) 1 mg PO BEDTIME [facility]IS[facility]EL; Protocol Last Admin: 09/07/22 20:37 Dose: 1 mg Trazodone HCl (Trazodone Hcl 100 Mg Tablet) 100 mg PO BEDTIME [facility]EL Last Admin: 09/07/22 20:37 Dose: 100 mg Allergies Allergies Allergy/AdvReac Type Severity Reaction Status Date / Time No Known Allergies Allergy Verified 08/15/22 10:32 Assessment & Plan Assessment & Plan (1) Bipolar 2 disorder: Status: Acute Code(s): F31.81 - Bipolar II disorder (2) Opioid use disorder: Status: Acute Code(s): F11.90 - Opioid use, unspecified, uncomplicated (3) Cocaine use disorder: Status: Acute Code(s): F14.10 - Cocaine abuse, uncomplicated (4) Chronic post-traumatic stress disorder (PTSD): Status: Acute Code(s): F43.12 - Post-traumatic stress disorder, chronic Plan Bella is a 32 y.o. Female with hx of Bipolar DO, IV/polysubstance abuse,hepatitis C who presents for depression and SI and the face of not taking medications and continued opioid/cocaine dependence. Patient is well-known to investigative writer. Patient presented to the ED saying she was depressed and suicidal; now she saying that that was a lie, she just needed a place to stay for the night and wants discharge. Patient has a history of malingering for this purpose as well as a history of suicidality and suicide attempts. At this time investigative writer finds the patient is not a reliable historian and not safe for discharge. Her drive to use cocaine/heroin is strong enough that she could very well be suicidal and still want discharge so she can use. Patient is admitted for safety, stability and to get back on her home medications 09/07 remains without any SI, mood is good. Very much wants discharge. Apologizes for lying to get inpatient admission just for a bad and how that is confusing to investigative writer and team who is concerned for her safety. Patient wants to leave the day of 3 day notice however is very open to getting on sublicade feeling that this will significantly help her sobriety Plan: CV; 3 day notice Q 15 minute checks Suboxone 8/2 mg t.i.d. Ensure t.i.d. as patient has significantly lost weight due drug abuse/not eating Restart home medications No alcohol abuse I spent minutes with the patient and/or on the patient floor today, greater than?50% of which was spent counseling/coordinating care. Patient educated on: diagnosis, medication risk/benefits and substance abuse Informed Consent: understands Reason for contiued inpatient stay Substantial Risk for: stable for discharge
[2022-09-08 08:00] VITALS: BP 107/59; PULSE 78; RESP 14; TEMP 36.6; O2SAT 98
[2022-09-08] MEDS: FLUoxetine HCl 10 MG CAPSULE 30 MG PO (09:04)
[2022-09-08] MEDS: Buprenorphine/Naloxone 8/2 mg TAB.SUBL 1 TAB SUBLINGUAL ×3 (09:04→21:04)
[2022-09-08] MEDS: chlorproMAZINE HCl 25 MG TABLET 50 MG PO (09:05)
[2022-09-08] MEDS: busPIRone HCl 10 MG TABLET PO ×2 (14:50→21:04)
[2022-09-08] MEDS: chlorproMAZINE HCl 25 MG TABLET 75 MG PO (17:15)
[2022-09-08] MEDS: cloNIDine HCL 0.1 MG TABLET PO (17:15)
[2022-09-08 17:35] LABS: Amphetamine Screen Urine Not Detected (Not Detect); Barbiturates, Urine Not Detected (Not Detect); Benzodiazepines Screen Urine Not Detected (Not Detect); Cannabinoid Screen Urine Not Detected (Not Detect); Cocaine Screen Urine Not Detected (Not Detect); Fentanyl, urine POSITIVE (Not Detect); Opiate Screen Urine Not Detected (Not Detect); Phencyclidine Screen Urine Not Detected (Not Detect)
[2022-09-08 18:00] VITALS: BP 98/60; PULSE 91; RESP 18; TEMP 36.3; O2SAT 100
--- NOTE | 2022-09-08 20:57 | HO.PSYCHPN ---
Subjective Subjective Date of Service: 09/08/22 Reason For Visit: SI Interim History: Patient reports overall good and that she has reconciled with her boyfriend. Still wants discharged soon as possible but also agrees plan sublicade. Continues to deny any SI. Asks for BuSpar to be increased Mental Status Exam Mental Status Exam Narrative: Pt is alert and oriented; behavior is cooperative, calm and friendly; dressed in casual attire with combed hair, improved hygiene; mood is described as ok and affect calm, congruent; eye contact appropriate; Speech is normal rate, volume and prosody and not pressured; no psychomotor retardation present; thought process is goal directed; Thought content is on discharge, using but also on treatment; denies SI/HI; otherwise pertinent to relevant topics and without any delusional content, paranoid ideations or grandiosity; There is no evidence of perceptual disturbance. ?Patients insight and judgment are impaired but improved. Diagnostics Vital Signs (24Hr): Vital Signs - 24 hr 09/08/22 08:00 Temperature 98 F Pulse Rate 78 Respiratory Rate 14 Blood Pressure 107/59 L Pulse Oximetry 98 Oxygen Delivery Method Room Air BMI result Body Mass Index 21.2 Labs Results: 09/04/22 10:21 09/04/22 10:21 Labs: Laboratory Results - last 48 hr 09/08/22 15:45 Urine Opiates Screen Not Detected Urine Fentanyl Screen POSITIVE H Ur Barbiturates Screen Not Detected Ur Phencyclidine Scrn Not Detected Ur Amphetamines Screen Not Detected U Benzodiazepines Scrn Not Detected Urine Cocaine Screen Not Detected U Marijuana (THC) Screen Not Detected Medications Medications Current Medications Acetaminophen (Acetaminophen 325 Mg Tablet) 650 mg PO Q6H PRN PRN Reason: Headache/Pain Mild Scale (1-3) Al Hydroxide/Mg Hydroxide (Magnesium Hydrox/Alum Hydrox 30 Ml Oral.Susp) 30 ml PO Q6H PRN PRN Reason: Heartburn/Nausea Buprenorphine/Naloxone (Buprenorphine/Naloxone 8/2 Mg Tab.Subl) 1 tab SUBLINGUAL TID [facility]IS[facility]EL Last Admin: 09/08/22 14:50 Dose: 1 tab Buspirone HCl (Buspirone Hcl 10 Mg Tablet) 10 mg PO BID [facility] Chlorpromazine HCl (Chlorpromazine Hcl 25 Mg Tablet) 75 mg PO QID PRN PRN Reason: Agitation Last Admin: 09/08/22 17:15 Dose: 75 mg Clonidine HCl (Clonidine Hcl 0.1 Mg Tablet) 0.1 mg PO BID PRN; Protocol PRN Reason: anxiety Last Admin: 09/08/22 17:15 Dose: 0.1 mg Divalproex Sodium (Divalproex Sodium Er 500 Mg Tab.Er.24h) 500 mg PO BEDTIME [facility]IS[facility] Last Admin: 09/07/22 20:37 Dose: 500 mg Famotidine (Famotidine 20 Mg Tablet) 20 mg PO BID PRN PRN Reason: Gastric Reflux Fluoxetine HCl (Fluoxetine Hcl 10 Mg Capsule) 30 mg PO DAILY [facility] Last Admin: 09/08/22 09:04 Dose: 30 mg Magnesium Hydroxide (Milk Of Magnesia 30 Ml Oral.Susp) 30 ml PO DAILY PRN PRN Reason: Constipation Nicotine (Nicotine 21 Mg Patch.Td24) 21 mg TRANSDERMA DAILY PRN PRN Reason: nicotine cravings Pharmacy Consult (Consult Rx Perform Med Rec) 1 each MISCELLANE ONCE PRN PRN Reason: Consult order Prazosin HCl (Prazosin Hcl 1 Mg Capsule) 1 mg PO BEDTIME [facility]IS[facility]EL; Protocol Last Admin: 09/07/22 20:37 Dose: 1 mg Trazodone HCl (Trazodone Hcl 50 Mg Tablet) 150 mg PO BEDTIME [facility] Allergies Allergies Allergy/AdvReac Type Severity Reaction Status Date / Time No Known Allergies Allergy Verified 08/15/22 10:32 Assessment & Plan Assessment & Plan (1) Bipolar 2 disorder: Status: Acute Code(s): F31.81 - Bipolar II disorder (2) Opioid use disorder: Status: Acute Code(s): F11.90 - Opioid use, unspecified, uncomplicated (3) Cocaine use disorder: Status: Acute Code(s): F14.10 - Cocaine abuse, uncomplicated (4) Chronic post-traumatic stress disorder (PTSD): Status: Acute Code(s): F43.12 - Post-traumatic stress disorder, chronic Plan Bella is a 32 y.o. Female with hx of Bipolar DO, IV/polysubstance abuse,hepatitis C who presents for depression and SI and the face of not taking medications and continued opioid/cocaine dependence. Patient is well-known to journalists and other writers. Patient presented to the ED saying she was depressed and suicidal; now she saying that that was a lie, she just needed a place to stay for the night and wants discharge. Patient has a history of malingering for this purpose as well as a history of suicidality and suicide attempts. At this time journalists and other writers finds the patient is not a reliable historian and not safe for discharge. Her drive to use cocaine/heroin is strong enough that she could very well be suicidal and still want discharge so she can use. Patient is admitted for safety, stability and to get back on her home medications 09/07 remains without any SI, mood is good. Very much wants discharge. Apologizes for lying to get inpatient admission just for a bad and how that is confusing to journalists and other writers and team who is concerned for her safety. Patient wants to leave the day of 3 day notice however is very open to getting on sublicade feeling that this will significantly help her sobriety 09/08 remains without any SI, mood is reported as good. Mental Tester agrees that patient is not suicidal and that she fabricated SI in order to deal with homelessness; patient is also not in imminent risk for harm to self or others. However patient is very vulnerable to relapse and it is in patient's best interest to remain on the unit for as long as possible in order to get medication that will help protect her from relapse. Plan: CV; 3 day notice Q 15 minute checks restart Bupsar Suboxone 8/2 mg t.i.d. Ensure t.i.d. as patient has significantly lost weight due drug abuse/not eating Restart home medications No alcohol abuse I spent minutes with the patient and/or on the patient floor today, greater than?50% of which was spent counseling/coordinating care. Patient educated on: diagnosis and medication risk/benefits Informed Consent: understands Reason for contiued inpatient stay Substantial Risk for: stable for discharge
[2022-09-08] MEDS: Prazosin HCL 1 MG CAPSULE PO (21:03)
[2022-09-08] MEDS: traZODone HCL 50 MG TABLET 150 MG PO (21:03)
[2022-09-08] MEDS: Divalproex Sodium ER 500 MG TAB.ER.24H PO (21:04)
[2022-09-09 06:00] VITALS: BP 106/54; PULSE 69; RESP 18; TEMP 36.7; O2SAT 99
[2022-09-09] MEDS: Buprenorphine/Naloxone 8/2 mg TAB.SUBL 1 TAB SUBLINGUAL (10:27)
[2022-09-09] MEDS: busPIRone HCl 10 MG TABLET PO ×2 (10:27→20:46)
[2022-09-09] MEDS: FLUoxetine HCl 10 MG CAPSULE 30 MG PO (10:27)
--- NOTE | 2022-09-09 10:49 | HO.PSYCHPN ---
Subjective Subjective Date of Service: 09/09/22 Reason For Visit: SI Interim History: Good mood, no SI, looking for discharge tomorrow. Still wants to get off sublicade Mental Status Exam Mental Status Exam Narrative: Pt is alert and oriented; behavior is cooperative, calm and friendly; dressed in casual attire with combed hair, good hygiene; mood is described as good and affect calm, congruent; eye contact appropriate; Speech is normal rate, volume and prosody and not pressured; no psychomotor retardation present; thought process is goal directed; Thought content is on discharge, using but also on treatment; denies SI/HI; otherwise pertinent to relevant topics and without any delusional content, paranoid ideations or grandiosity; There is no evidence of perceptual disturbance. ?Patients insight and judgment are fair. Diagnostics Vital Signs (24Hr): Vital Signs - 24 hr 09/08/22 18:00 09/09/22 06:00 Temperature 97.4 F 98.1 F Pulse Rate 91 69 Respiratory Rate 18 18 Blood Pressure 98/60 106/54 L Pulse Oximetry 100 99 Oxygen Delivery Method Room Air Room Air BMI result Body Mass Index 21.2 Labs Results: 09/04/22 10:21 09/04/22 10:21 Labs: Laboratory Results - last 48 hr 09/08/22 15:45 Urine Opiates Screen Not Detected Urine Fentanyl Screen POSITIVE H Ur Barbiturates Screen Not Detected Ur Phencyclidine Scrn Not Detected Ur Amphetamines Screen Not Detected U Benzodiazepines Scrn Not Detected Urine Cocaine Screen Not Detected U Marijuana (THC) Screen Not Detected Medications Medications Current Medications Acetaminophen (Acetaminophen 325 Mg Tablet) 650 mg PO Q6H PRN PRN Reason: Headache/Pain Mild Scale (1-3) Al Hydroxide/Mg Hydroxide (Magnesium Hydrox/Alum Hydrox 30 Ml Oral.Susp) 30 ml PO Q6H PRN PRN Reason: Heartburn/Nausea Buprenorphine/Naloxone (Buprenorphine/Naloxone 8/2 Mg Tab.Subl) 1 tab SUBLINGUAL TID [facility] Last Admin: 09/09/22 10:27 Dose: 1 tab Buspirone HCl (Buspirone Hcl 10 Mg Tablet) 10 mg PO BID [facility]EL Last Admin: 09/09/22 10:27 Dose: 10 mg Chlorpromazine HCl (Chlorpromazine Hcl 25 Mg Tablet) 75 mg PO QID PRN PRN Reason: Agitation Last Admin: 09/08/22 17:15 Dose: 75 mg Clonidine HCl (Clonidine Hcl 0.1 Mg Tablet) 0.1 mg PO BID PRN; Protocol PRN Reason: anxiety Last Admin: 09/08/22 17:15 Dose: 0.1 mg Divalproex Sodium (Divalproex Sodium Er 500 Mg Tab.Er.24h) 500 mg PO BEDTIME [facility]IS[facility]EL Last Admin: 09/08/22 21:04 Dose: 500 mg Famotidine (Famotidine 20 Mg Tablet) 20 mg PO BID PRN PRN Reason: Gastric Reflux Fluoxetine HCl (Fluoxetine Hcl 10 Mg Capsule) 30 mg PO DAILY [facility]IS[facility]EL Last Admin: 09/09/22 10:27 Dose: 30 mg Magnesium Hydroxide (Milk Of Magnesia 30 Ml Oral.Susp) 30 ml PO DAILY PRN PRN Reason: Constipation Nicotine (Nicotine 21 Mg Patch.Td24) 21 mg TRANSDERMA DAILY PRN PRN Reason: nicotine cravings Pharmacy Consult (Consult Rx Perform Med Rec) 1 each MISCELLANE ONCE PRN PRN Reason: Consult order Prazosin HCl (Prazosin Hcl 1 Mg Capsule) 1 mg PO BEDTIME [facility]IS[facility]EL; Protocol Last Admin: 09/08/22 21:03 Dose: 1 mg Trazodone HCl (Trazodone Hcl 50 Mg Tablet) 150 mg PO BEDTIME [facility] Last Admin: 09/08/22 21:03 Dose: 150 mg Allergies Allergies Allergy/AdvReac Type Severity Reaction Status Date / Time No Known Allergies Allergy Verified 08/15/22 10:32 Assessment & Plan Assessment & Plan (1) Bipolar 2 disorder: Status: Acute Code(s): F31.81 - Bipolar II disorder (2) Opioid use disorder: Status: Acute Code(s): F11.90 - Opioid use, unspecified, uncomplicated (3) Cocaine use disorder: Status: Acute Code(s): F14.10 - Cocaine abuse, uncomplicated (4) Chronic post-traumatic stress disorder (PTSD): Status: Acute Code(s): F43.12 - Post-traumatic stress disorder, chronic Plan Bella is a 32 y.o. Female with hx of Bipolar DO, IV/polysubstance abuse,hepatitis C who presents for depression and SI and the face of not taking medications and continued opioid/cocaine dependence. Patient is well-known to technical report writer. Patient presented to the ED saying she was depressed and suicidal; now she saying that that was a lie, she just needed a place to stay for the night and wants discharge. Patient has a history of malingering for this purpose as well as a history of suicidality and suicide attempts. At this time technical report writer finds the patient is not a reliable historian and not safe for discharge. Her drive to use cocaine/heroin is strong enough that she could very well be suicidal and still want discharge so she can use. Patient is admitted for safety, stability and to get back on her home medications 09/07 remains without any SI, mood is good. Very much wants discharge. Apologizes for lying to get inpatient admission just for a bad and how that is confusing to technical report writer and team who is concerned for her safety. Patient wants to leave the day of 3 day notice however is very open to getting on sublicade feeling that this will significantly help her sobriety 09/08 remains without any SI, mood is reported as good. Supervisor Inspecting agrees that patient is not suicidal and that she fabricated SI in order to deal with homelessness; patient is also not in imminent risk for harm to self or others. However patient is very vulnerable to relapse and it is in patient's best interest to remain on the unit for as long as possible in order to get medication that will help protect her from relapse. 10 stable, good mood, no SI; patient was never suicidal but lied about suicidality to get a bed. pt not imminent risk harm to self or orthers and agrees to get [place] in coordination with [place]. Patient of course remains vulnerable to relapse however this is a chronic issue and she does not meet criteria for involuntary commitment. Three day notice is coming due and patient appropriate for discharge. Patient says she has all of her home medications in adequate supply does not need refills. Plan: CV; 3 day notice Q 15 minute checks restart Bupsar Suboxone 8/2 mg t.i.d. Ensure t.i.d. as patient has significantly lost weight due drug abuse/not eating Restart home medications No alcohol abuse I spent minutes with the patient and/or on the patient floor today, greater than?50% of which was spent counseling/coordinating care. Patient educated on: diagnosis and substance abuse Informed Consent: understands Reason for contiued inpatient stay Substantial Risk for: stable for discharge
[2022-09-09] MEDS: Buprenorphine/Naloxone 8/2 mg FILM 1 FILM SUBLINGUAL ×2 (14:35→20:45)
[2022-09-09] MEDS: cloNIDine HCL 0.1 MG TABLET PO (16:05)
[2022-09-09 18:00] VITALS: BP 100/50; PULSE 90; RESP 18; TEMP 36.8; O2SAT 100
[2022-09-09] MEDS: chlorproMAZINE HCl 25 MG TABLET 75 MG PO (20:45)
[2022-09-09] MEDS: Divalproex Sodium ER 500 MG TAB.ER.24H PO (20:46)
[2022-09-09] MEDS: traZODone HCL 50 MG TABLET 150 MG PO (20:46)
[2022-09-09] MEDS: Prazosin HCL 1 MG CAPSULE PO (20:46)
[2022-09-10] MEDS: FLUoxetine HCl 10 MG CAPSULE 30 MG PO (08:19)
[2022-09-10] MEDS: Buprenorphine/Naloxone 8/2 mg FILM 1 FILM SUBLINGUAL (08:19)
[2022-09-10] MEDS: busPIRone HCl 10 MG TABLET PO (08:19)
--- NOTE | 2022-09-10 09:12 | PM.PSYDC ---
DS: Providers Provider Date of Service: 09/10/22 Date of admission: 09/05/22 18:25 Date of discharge: 09/10/22 Primary care physician: Unknown Physician Attending physician on admission: Grey Rosario Attending physician on discharge: Grey Rosario DS: Diagnosis Discharge Diagnosis (1) Bipolar 2 disorder: Status: Acute (2) Opioid use disorder: Status: Acute (3) Cocaine use disorder: Status: Acute (4) Chronic post-traumatic stress disorder (PTSD): Status: Acute DS: Medications Discharge Medications Home Medications: Home Medications Medication Instructions Recorded Confirmed buprenorphine 8 mg-naloxone 2 mg 1 strip sublingual TID 09/05/22 09/05/22 sublingual film (Suboxone) chlorpromazine 50 mg tablet 50 mg PO TID PRN Agitation 09/05/22 09/05/22 clonidine HCl 0.1 mg tablet 1 tab PO BID PRN anxiety 09/05/22 09/05/22 divalproex 500 mg tablet,extended 1 tab PO BEDTIME 09/05/22 09/05/22 release 24 hr famotidine 20 mg tablet 1 tab PO BID PRN Gastric Reflux 09/05/22 09/05/22 fluoxetine 10 mg capsule 3 cap PO DAILY 09/05/22 09/05/22 nicotine 21 mg/24 hr daily 1 patch topical DAILY PRN nicotine 09/05/22 09/05/22 transdermal patch cravings prazosin 1 mg capsule 1 cap PO BEDTIME 09/05/22 09/05/22 trazodone 100 mg tablet 1 tab PO BEDTIME PRN insomnia 09/05/22 09/05/22 Previous Rx's Medication Instructions Recorded buspirone 10 mg tablet 10 mg PO BID 30 days #60 tabs 09/10/22 Mental Status Exam Mental Status Exam Narrative: Pt is alert and oriented; behavior is cooperative, calm and friendly; dressed in casual attire with combed hair, good hygiene; mood is described as good and affect calm, congruent; eye contact appropriate; Speech is normal rate, volume and prosody and not pressured; no psychomotor retardation present; thought process is goal directed; Thought content is on discharge, using but also on treatment; denies SI/HI; otherwise pertinent to relevant topics and without any delusional content, paranoid ideations or grandiosity; There is no evidence of perceptual disturbance. ?Patients insight and judgment are fair. Data Data Completed and Pending Completed studies during hospitalization [Text1]: 09/04/22 09/04/22 09/04/22 09:32 10:21 10:21 WBC 6.5 RBC 3.76 L Hgb 10.5 L Hct 32.8 L MCV 87.2 MCH 27.9 MCHC 32.0 RDW 15.4 Plt Count 340 D MPV 9.8 Immature Gran % (Auto) 0.2 Neut % (Auto) 59.9 Lymph % (Auto) 27.6 [place] % (Auto) 8.6 Eos % (Auto) 3.2 Baso % (Auto) 0.5 Lymph # (Auto) 1.8 [place] # (Auto) 0.6 Eos # (Auto) 0.2 Baso # (Auto) 0.0 Abs Immat Gran (auto) 0.01 Absolute Neuts (auto) 3.9 Absolute Nucleated RBC 0.000 Nucleated RBC % (auto) 0.0 Sodium 141 Potassium 4.3 Chloride 108 Carbon Dioxide 22 Anion Gap 15 BUN 9 Creatinine 0.67 Estim Creat Clear Calc 99.7 Estimated GFR > 60 Random Glucose 104 Estimat Average Glucose Hemoglobin A1c % Calcium 9.1 Magnesium Total Bilirubin 0.3 Direct Bilirubin 0.2 AST 38 H ALT 31 Alkaline Phosphatase 78 D Total Protein 6.5 Albumin 3.5 Triglycerides Cholesterol LDL Cholesterol, Calc HDL Cholesterol Vitamin B12 Folate TSH Free T4 Urine Test Urine Opiates Screen Urine Fentanyl Screen Urine Fentanyl Ur Norfentanyl Quant Ur Barbiturates Screen Valproic Acid 12.8 L Ur Phencyclidine Scrn Ur Amphetamines Screen U Benzodiazepines Scrn Urine Cocaine Screen U Marijuana (THC) Screen Ethyl Alcohol < 10 COVID-19 ([facility]) Negative COVID-19 Clin Com See Note 09/04/22 09/04/22 09/05/22 16:02 16:02 18:59 WBC RBC Hgb Hct MCV MCH MCHC RDW Plt Count MPV Immature Gran % (Auto) Neut % (Auto) Lymph % (Auto) [place] % (Auto) Eos % (Auto) Baso % (Auto) Lymph # (Auto) [place] # (Auto) Eos # (Auto) Baso # (Auto) Abs Immat Gran (auto) Absolute Neuts (auto) Absolute Nucleated RBC Nucleated RBC % (auto) Sodium Potassium Chloride Carbon Dioxide Anion Gap BUN Creatinine Estim Creat Clear Calc Estimated GFR Random Glucose Estimat Average Glucose Hemoglobin A1c % Calcium Magnesium Total Bilirubin Direct Bilirubin AST ALT Alkaline Phosphatase Total Protein Albumin Triglycerides Cholesterol LDL Cholesterol, Calc HDL Cholesterol Vitamin B12 Folate TSH Free T4 Urine Test NEGATIVE Urine Opiates Screen POSITIVE H Urine Fentanyl Screen POSITIVE H Urine Fentanyl Ur Norfentanyl Quant Ur Barbiturates Screen Not Detected Valproic Acid 5.4 L Ur Phencyclidine Scrn Not Detected Ur Amphetamines Screen Not Detected U Benzodiazepines Scrn Not Detected Urine Cocaine Screen POSITIVE H U Marijuana (THC) Screen Not Detected Ethyl Alcohol COVID-19 ([facility]) COVID-19 [facility] Com 09/06/22 09/06/22 09/06/22 08:58 08:58 08:58 WBC RBC Hgb Hct MCV MCH MCHC RDW Plt Count MPV Immature Gran % (Auto) Neut % (Auto) Lymph % (Auto) [place] % (Auto) Eos % (Auto) Baso % (Auto) Lymph # (Auto) [place] # (Auto) Eos # (Auto) Baso # (Auto) Abs Immat Gran (auto) Absolute Neuts (auto) Absolute Nucleated RBC Nucleated RBC % (auto) Sodium Potassium Chloride Carbon Dioxide Anion Gap BUN Creatinine Estim Creat Clear Calc Estimated GFR Random Glucose Estimat Average Glucose 105 Hemoglobin A1c % 5.3 Calcium Magnesium 2.1 Total Bilirubin Direct Bilirubin AST ALT Alkaline Phosphatase Total Protein Albumin Triglycerides 112 Cholesterol 171 LDL Cholesterol, Calc 100 HDL Cholesterol 49 D Vitamin B12 599 Folate 9.9 TSH 0.10 L Free T4 1.05 Urine Test Urine Opiates Screen Urine Fentanyl Screen Urine Fentanyl Ur Norfentanyl Quant Ur Barbiturates Screen Valproic Acid Ur Phencyclidine Scrn Ur Amphetamines Screen U Benzodiazepines Scrn Urine Cocaine Screen U Marijuana (THC) Screen Ethyl Alcohol COVID-19 ([facility]) COVID-19 [facility] 09/08/22 09/08/22 15:45 15:45 WBC RBC Hgb Hct MCV MCH MCHC RDW Plt Count MPV Immature Gran % (Auto) Neut % (Auto) Lymph % (Auto) [place] % (Auto) Eos % (Auto) Baso % (Auto) Lymph # (Auto) [place] # (Auto) Eos # (Auto) Baso # (Auto) Abs Immat Gran (auto) Absolute Neuts (auto) Absolute Nucleated RBC Nucleated RBC % (auto) Sodium Potassium Chloride Carbon Dioxide Anion Gap BUN Creatinine Estim Creat Clear Calc Estimated GFR Random Glucose Estimat Average Glucose Hemoglobin A1c % Calcium Magnesium Total Bilirubin Direct Bilirubin AST ALT Alkaline Phosphatase Total Protein Albumin Triglycerides Cholesterol LDL Cholesterol, Calc HDL Cholesterol Vitamin B12 Folate TSH Free T4 Urine Test Urine Opiates Screen Not Detected Urine Fentanyl Screen POSITIVE H Pending Urine Fentanyl Pending Ur Norfentanyl Quant Pending Ur Barbiturates Screen Not Detected Valproic Acid Ur Phencyclidine Scrn Not Detected Ur Amphetamines Screen Not Detected U Benzodiazepines Scrn Not Detected Urine Cocaine Screen Not Detected U Marijuana (THC) Screen Not Detected Ethyl Alcohol COVID-19 ([facility]) COVID-19 Clin Com DS: Summary Hospital Course Hospital Course: Bella is a 32 y.o. Female with hx of Bipolar DO, IV/polysubstance abuse,hepatitis C who presents for depression and SI and the face of not taking medications and continued opioid/cocaine dependence. Patient is well-known to field underwriter.? Patient presented to the ED saying she was depressed and suicidal; now she saying that that was a lie, she just needed a place to stay for the night and wants discharge.? Patient has a history of malingering for this purpose...she also has a history of suicidality and suicide attempts.? Admitted for safety and medication management On admission, she continued to deny any SI or HI or AVH at all and wanted discharge. She Apologized for lying to get inpatient admission just for a bed and regretted causing confusion to field underwriter and team who is concerned for her safety.? Patient placed a 3 day notice, however agreed to remain in order to get on sublicade feeling that this will significantly help her sobriety. Patient reconciled with her boyfriend. She remained in good behavioral and impulse control throughout her stay on the unit. Remained in good mood without any SI or HI or AVH and tolerating medications well. [employer] agreed that patient is not suicidal and that she fabricated SI in order to deal with homelessness; however due to fight with boyfriend and subsequent homelessness and vulnerability,, field underwriter diagnosed her with adjustment order with disturbance of mood and conduct. Patient 3 day notice came due and she remained focused on discharge; that said she expressed gratitude for help received in said she was relieved to finally get on sublicade. She is not in imminent risk for harm to self or others. She agrees to go straight to addiction services on the 4th floor to discuss getting sublucaid induction with [facility] [place] follows her for Suboxone.? Patient of course remains vulnerable to relapse however this is a chronic issue and she does not meet criteria for involuntary commitment.? Request for discharge honored. Time spent discussing smoking cessation with patient: 3 to 10 minutes Status at Discharge Functional status at discharge: independent ambulation Overall status at discharge: patient is back to baseline Time Spent with Patient Time attestation: Total time spent providing and/or coordinating discharge services: Time spent: Less than 30 minutes Discharge Plan Discharge Anticipated Discharge Date/Time: 09/10/22 11:00 Patient Disposition: Home, Self-Care Discharge Diagnosis: Adjustment disorder in full remission Referrals: [facility] [Outside] - 1 Week ([address] [place] [id number]. Walk In Clinic. [phone]) Discharge Medications: New buspirone 10 mg Tablet 10 mg PO BID 30 Days Qty: 60 0RF Continued clonidine HCl 0.1 mg tablet 1 tab PO BID PRN (Reason: anxiety) prazosin 1 mg capsule 1 cap PO BEDTIME famotidine 20 mg tablet 1 tab PO BID PRN (Reason: Gastric Reflux) trazodone 100 mg tablet 1 tab PO BEDTIME PRN (Reason: insomnia) divalproex 500 mg tablet extended release 24 hr 1 tab PO BEDTIME nicotine 21 mg/24 hr patch 24 hour 1 patch topical DAILY PRN (Reason: nicotine cravings) fluoxetine 10 mg capsule 3 cap PO DAILY chlorpromazine 50 mg tablet 50 mg PO TID PRN (Reason: Agitation) buprenorphine-naloxone [Suboxone] 8-2 mg film 1 strip sublingual TID No Action Sublocade 300 mg/1.5 mL solution, extended rel syringe 300 mg subcut ONCE Qty: 1.5 1RF Discharge Orders: Discharge Order (Routine); Ordered 09/10/22 Ordered By: Grey Rosario Diet: Regular diet Activity on Discharge: As tolerated Stand Alone Forms: Patient Portal Discharge page, Community Support Care Plan Goals: Maintain mood and safe behaviors Take medications as prescribed Continue to pursue sobriety Practice coping skills Continue with outpatient providers and reach out to them as needed Health Concerns: Mood stability and behaviors Sobriety Plan of Treatment: Follow up with your Psychiatric provider and other outpatient providers regarding above concerns Take medications as prescribed Assessment: Risk assessment at time of discharge:? Patient was interviewed prior to discharge and found to be fully oriented and without any SI or HI. Patient has insight and demonstrates good judgment in terms of wanting to pursue treatment. Patient is not in imminent risk of harm to self or others and has a safety plan that includes presenting to the closest ER or calling 911 if feeling unsafe.? Patient has been observed closely by nursing and unit staff throughout admission; patient has not engaged in any behaviors that suggest dangerousness to self or others and has demonstrated appropriate behaviors and impulse control Discharge Date/Time: 09/10/22 11:27
[2022-09-10] MEDS: Naloxone HCl Nasal TAKE HOME 4 MG SPRAY NOSTRILALT (09:32)
== END 2022-09-10 11:27 | disposition home or self-care (01) | DRG 753 ==
LOC: HO.ED 09-05 13:07 → HO.PM5 09-05 18:42
PROVIDERS: Clinical Nurse Specialist Psychiatric/Mental Health, Adult; Emergency Medicine; Admitting Provider Psychiatry & Neurology Psychiatry; Emergency Provider Emergency Medicine Emergency Medical Services; Visit Provider Psychiatry & Neurology Psychiatry
DX: F31.81 Bipolar II disorder (principal); F11.20 Opioid dependence, uncomplicated; F43.12 Post-traumatic stress disorder, chronic; F14.10 Cocaine abuse, uncomplicated; F17.210 Nicotine dependence, cigarettes, uncomplicated; F41.1 Generalized anxiety disorder; Z76.5 Malingerer [conscious simulation]; Z20.822 Contact with and (suspected) exposure to COVID-19; Z59.02 Unsheltered homelessness; Z71.6 Tobacco abuse counseling; Z86.19 Personal history of other infectious and parasitic diseases; Z56.0 Unemployment, unspecified; Z79.899 Other long term (current) drug therapy
CPT/HCPCS: 36415; 80048; 80061; 80076; 80164; 80307; 80354; 81025; 82077; 82607; 82746; 83036; 83735; 84439; 84443; 85025; 87635; 93005; 99285

== ENCOUNTER → 2022-09-10 11:25 | Outpatient (BNVA) | payer OTHER, SELFPAY | PROVIDERS: Visit Provider Nurse Practitioner Psychiatric/Mental Health | DX: F11.20 Opioid dependence, uncomplicated (principal); Z51.81 Encounter for therapeutic drug level monitoring; Z79.899 Other long term (current) drug therapy | CPT/HCPCS: 99212 ==

== ENCOUNTER → 2022-12-09 08:54 | Outpatient (BNVA) | payer OTHER, SELFPAY | PROVIDERS: Visit Provider Nurse Practitioner Psychiatric/Mental Health | DX: F11.20 Opioid dependence, uncomplicated (principal) | CPT/HCPCS: 80305; 99212 ==

== ENCOUNTER → 2022-12-16 08:53 | Outpatient (BNVA) | payer OTHER, SELFPAY | PROVIDERS: Visit Provider Nurse Practitioner Psychiatric/Mental Health | DX: F11.20 Opioid dependence, uncomplicated (principal); Z51.81 Encounter for therapeutic drug level monitoring; Z79.899 Other long term (current) drug therapy | CPT/HCPCS: 80305; 99212 ==

== ENCOUNTER 2022-12-24 08:49 | Outpatient (REF) | payer OTHER, SELFPAY ==
[2023-01-01 08:49] LABS: Buprenorphine 137; Naloxone 826; Norbuprenorphine 58
== END 2022-12-24 08:50 | disposition home or self-care (01) ==
LOC: HO.LAB 08:49
PROVIDERS: Visit Provider Nurse Practitioner Psychiatric/Mental Health
DX: F11.20 Opioid dependence, uncomplicated (principal); Z51.81 Encounter for therapeutic drug level monitoring; Z79.899 Other long term (current) drug therapy
CPT/HCPCS: 80305; 80348; 80362; 99212

== ENCOUNTER → 2022-12-31 08:53 | Outpatient (BNVA) | payer OTHER, SELFPAY | PROVIDERS: Visit Provider Nurse Practitioner Psychiatric/Mental Health | DX: Z51.81 Encounter for therapeutic drug level monitoring (principal); F11.20 Opioid dependence, uncomplicated; F14.10 Cocaine abuse, uncomplicated | CPT/HCPCS: 99212 ==

== ENCOUNTER → 2023-01-07 11:20 | Outpatient (BNVA) | payer OTHER, SELFPAY | PROVIDERS: Visit Provider Nurse Practitioner Psychiatric/Mental Health | DX: F11.20 Opioid dependence, uncomplicated (principal); F14.10 Cocaine abuse, uncomplicated | CPT/HCPCS: 80305; 99212 ==

== ENCOUNTER → 2023-01-14 11:30 | Outpatient (BNVA) | payer OTHER, SELFPAY | PROVIDERS: Visit Provider Nurse Practitioner Psychiatric/Mental Health | DX: Z51.81 Encounter for therapeutic drug level monitoring (principal); F11.20 Opioid dependence, uncomplicated; F14.10 Cocaine abuse, uncomplicated | CPT/HCPCS: 80305; 99212 ==

== ENCOUNTER → 2023-01-22 11:34 | Outpatient (BNVA) | payer OTHER, SELFPAY | PROVIDERS: Visit Provider Nurse Practitioner Psychiatric/Mental Health | DX: F11.20 Opioid dependence, uncomplicated (principal); F14.10 Cocaine abuse, uncomplicated | CPT/HCPCS: 99212 ==

== ENCOUNTER → 2023-01-29 11:31 | Outpatient (BNVA) | payer OTHER, SELFPAY | PROVIDERS: Visit Provider Nurse Practitioner Psychiatric/Mental Health | DX: Z51.81 Encounter for therapeutic drug level monitoring (principal); F11.20 Opioid dependence, uncomplicated; F14.10 Cocaine abuse, uncomplicated | CPT/HCPCS: 80305; 99212 ==

== ENCOUNTER → 2023-02-12 11:33 | Outpatient (BNVA) | payer OTHER, SELFPAY | PROVIDERS: Visit Provider Nurse Practitioner Psychiatric/Mental Health | DX: F11.20 Opioid dependence, uncomplicated (principal); F14.20 Cocaine dependence, uncomplicated; F10.20 Alcohol dependence, uncomplicated; F31.81 Bipolar II disorder; F41.1 Generalized anxiety disorder; F43.12 Post-traumatic stress disorder, chronic; U07.0 Vaping-related disorder; F17.210 Nicotine dependence, cigarettes, uncomplicated; Z51.81 Encounter for therapeutic drug level monitoring; Z79.899 Other long term (current) drug therapy | CPT/HCPCS: 80305; 99212 ==

== ENCOUNTER → 2023-02-28 10:35 | Outpatient (BNVA) | payer OTHER, SELFPAY | PROVIDERS: Visit Provider Nurse Practitioner Psychiatric/Mental Health | DX: Z51.81 Encounter for therapeutic drug level monitoring (principal); F11.20 Opioid dependence, uncomplicated | CPT/HCPCS: 80305; 99212 ==